=== PATIENT | male | born 1960 | race African-American/Black ===

== ENCOUNTER 2017-09-23 05:25 | Inpatient (IN) | payer MEDICARE ==
[2017-09-23 05:51] LABS: Oxyhemoglobin 90.1 % (94.0-97.0); Sodium 139 mmol/L (135-148)
[2017-09-23 05:52] LABS: Modified Allen's Test POSITIVE
[2017-09-23] MEDS ORDERED: Furosemide 40 MG/4 ML VIAL ONE (05:52)
[2017-09-23] MEDS ORDERED: Nitroglycerin 2% Ointment 1 INCH/1 GM Packet ONE (05:52)
[2017-09-23] MEDS ORDERED: DOBUTamine 500 mg/250 ml 250 ML ONE (05:52)
[2017-09-23] MEDS ORDERED: Nitroglycerin 0.4 MG TAB (25 Tab Bottle) ONE (06:11)
[2017-09-23 06:19] LABS: Lactic Acid - Sepsis 2.6 mmol/L (0.5-2.2)
[2017-09-23 06:23] LABS: ALT (SGPT) 12 U/L (8-55); AST (SGOT) 23 U/L (5-34); Acetaminophen Less than 6.0 mcg/mL (10.0-30.0); Alkaline Phosphatase 90 U/L (40-150); Anion Gap 19 mmol/L (10-20); BUN (Urea Nitrogen) 23 mg/dL (8.4-25.7); Bilirubin, Total 1.9 mg/dL (0.2-1.2); CK (CPK) 222 U/L (30-200); Calc. Creatinine Clearance 0 mL/min (70-130); Calcium 9.6 mg/dL (7.8-10.44); Carbon Dioxide 23 mmol/L (22-29); Chloride 103 mmol/L (98-107); Estimated GFR-MDRD 52; Globulin 3.9 g/dL (2.4-3.5); Lipase 22 U/L (8-78); Protein, Total 7.9 g/dL (6.0-8.3); Salicylate Less than 8.0 mg/dL (15.0-30.0)
[2017-09-23 06:24] LABS: Band 4 % (5-11); Hematocrit 44.7 % (42.0-52.0); Mean Platelet Volume 9.4 fL (7.4-10.4); Neutrophil 61 % (42-75); Red Blood Cell (RBC) Count 4.72 mill/uL (4.70-6.10); White Blood Cell (WBC) Count 7.5 thou/uL (4.8-10.8)
[2017-09-23 07:23] LABS: Bilirubin Negative (Negative); Blood, Urine Negative (Negative); Glucose, Urine (Dipstick) Negative (Negative); Ketone, Urine Negative (Negative); Nitrite Negative (Negative); Protein, Urine (Dipstick) 100 mg/dL (Neg-Trace)
[2017-09-23 07:26] LABS: Bacteria/HPF None Seen HPF (None Seen); Hyaline Casts/LPF 0-3 HYALINE CAST LPF (0-3 Hyaline); RBC/HPF 0-3 HPF (0-3); Squamous Epithelial None Seen HPF (0-3); WBC/HPF None Seen HPF (0-3)
[2017-09-23 07:36] LABS: Amphetamine Not Detected (NotDetected); Methadone Not Detected (NotDetected); Methamphetamine Not Detected (NotDetected)
[2017-09-23] MEDS ORDERED: Bisacodyl 5 MG TAB PO PRN (08:30)
[2017-09-23] MEDS ORDERED: Senokot 8.6 MG TAB PO PRN (08:30)
[2017-09-23] MEDS ORDERED: Acetaminophen 325 MG TAB PO PRN (08:30)
[2017-09-23] MEDS ORDERED: Ondansetron HCl/PF 4 MG/2 ML Vial IVP PRN (08:30)
[2017-09-23] MEDS ORDERED: Calcium Carbonate 500 MG ChewTAB PO PRN (08:30)
--- NOTE | 2017-09-23 08:59 | RAD ---
PORTABLE UPRIGHT FRONTAL CHEST RADIOGRAPH: Date: 09-23-17 Comparison: 10-04-15 History: Chest pain, persistent cough. FINDINGS: There is stable enlargement of the cardiac silhouette. Stable transvenous AICD. No pneumothorax. Ther e is pulmonary vascular congestion. Cardiac silhouette is prominent. There is no lobar consolidation or alveolar edema. IMPRESSION: No significant interval change. POS: [facility]
[2017-09-23 09:23] LABS: Troponin I 0.073 ng/mL (< 0.028)
[2017-09-23 12:28] LABS: Troponin I 0.061 ng/mL (< 0.028)
--- NOTE | 2017-09-23 13:22 | HP ---
CHIEF COMPLAINT: Chest pain with shortness of breath x2 days duration. HISTORY OF PRESENT ILLNESS: This is a 57-year-old male with a past medical history significant for c ongestive heart failure of unknown type, hypertension, diabetes, as well as hyperlipidemia, who prese nts to the hospital due to chest pain and shortness of breath that has been going on for the past cou ple of days. The patient states that his chest pain and shortness of breath that started all of a arriaga dden has been persistent since then. He states that he tried to deal with that at home with no relie f. Because of the chest pain continued to progress as well as shortness of breath, he decided to com e to the hospital for further evaluation and management. The patient states that he has been taking his medications regularly; however, he has been without for the past "couple of days" as he was waiti ng to get them refilled. He states that the chest pain is diffuse all over, worse with coughing. Estrada s productive cough with white colored sputum. Denies any fevers, chills or night sweats. The shortn ess of breath he states that occurs both on exertion and at rest. He also denies any nausea, vomitin g, abdominal pain or diarrhea. He also does complain of some lower extremity swelling. Of note, whi le the patient was in the ER, the patient was placed on BiPAP due to respiratory distress. His satur ations had dropped into the low 90s; however, did not drop over than that per records. The patient w as also started on dobutamine drip initially, but has been soon taken off. PAST MEDICAL HISTORY: See HPI. The patient has ischemic cardiomyopathy with ejection fraction of 10 %-15%. He also has three-vessel coronary artery disease. PAST SURGICAL HISTORY: Includes AICD placement. FAMILY HISTORY: Significant for cardiovascular disease as well as hypertension as well as diabetes. SOCIAL HISTORY: The patient is a cocaine user, also smokes cigarettes. Denies any alcohol. REVIEW OF SYSTEMS: Pertinent positive as per HPI, otherwise 14-point review of systems was reviewed and was negative other than what was mentioned in the HPI. HOME MEDICATIONS: Still trying to be retrieved at this time. PHYSICAL EXAMINATION: VITAL SIGNS: Currently, his blood pressure is 122/86, pulse was 84, respiratory rate was 18. The pa tient is satting 95% on 2 liters nasal cannula, temperature was 98.6. GENERAL: The patient appears to be uncomfortable, in mild distress, otherwise was alert, awake, orie nted x3, and able to hold a conversation, although mildly labored. HEENT: Head is normocephalic, atraumatic. Eyes: Pupils are round and reactive to light. Extraocul ar muscles intact. Conjunctivae was pink. Sclerae was nonicteric. Mouth: Oral mucosa is pink and moist. No erythema was noted. NECK: Soft, supple. No JVD, carotid bruits or lymphadenopathy. CARDIOVASCULAR: Regular rate and rhythm. S1, S2 sounds are heard, no murmurs could be appreciated. RESPIRATORY: Inspiratory crackles bilaterally, bibasilar. ABDOMEN: Positive bowel sounds, soft, nontender, nondistended. EXTREMITIES: Pulses were 2+ both dorsalis and radial pulse. The patient had approximately 1-2+ penny ing edema bilaterally. LABORATORY DATA AND X-RAY FINDINGS: White blood cell count 7.5, hemoglobin 13.7, hematocrit was 44.7 , platelet count was 168. Sodium was 140, potassium 4.6, chloride 103, bicarbonate 23, BUN was 23, c reatinine was 1.64, glucose is 104. Lactic acid 2.6. BNP was 4800. Troponin was 0.06 and was 0.073 . TSH was 2.2. UA was negative. Chest x-ray did not show any acute abnormalities. ASSESSMENT: 1. Shortness of breath with chest pain, likely secondary to congestive heart failure exacerbation se condary to likely noncompliance. 2. Respiratory distress secondary to above. 3. Coronary artery disease, 3-vessel. 4. Ischemic cardiomyopathy with ejection fraction of 10%-15%. 5. Hypertension. 6. Diabetes. 7. Hyperlipidemia. 8. Patient has an acute kidney injury. PLAN: The patient as stated has been on BiPAP has been removed after his respiratory distress has im proved. He is currently no longer on dobutamine drip as well. His sats are holding fine on nasal ca nnula as well as his blood pressure. We will start the patient on Lasix IV b.i.d. We will get a rep eat echocardiogram. We will trend troponins. Consult Cardiology. Resume home medications at the mo dicine reconciliation. We will get strict I's and O's as well as daily weights and monitor according ly.
[2017-09-23] MEDS ORDERED: Furosemide 40 MG/4 ML VIAL SLOW IVP SCH (14:00)
[2017-09-23] MEDS ORDERED: Nitroglycerin 2% Ointment 1 INCH/1 GM Packet TOP SCH (15:00)
[2017-09-23 15:08] VITALS: BMI 26.2
[2017-09-23] MEDS: Enoxaparin Sodium 30 MG/0.3 ML SYRINGE SC SCH (15:52)
[2017-09-23] MEDS: Furosemide 40 MG/4 ML VIAL SLOW IVP SCH (16:06)
--- NOTE | 2017-09-23 16:55 | CON ---
DATE OF CONSULTATION: 09/23/2017 REASON FOR CONSULTATION: Acute on chronic systolic heart failure. PRIMARY BUILDING MAINTENANCE ENGINEER: Sourav Baig M.D. REFERRAL: Bill Carr M.D. HISTORY OF PRESENT ILLNESS: Mr. Irving is an unfortunate 57-year-old gentleman with past history of is chemic cardiomyopathy who recently presented with shortness of breath. He states he has been normal last 2-1/2 days. He did test positive for cocaine. He does complain of chest pain that is sharp and occurs when he coughs and takes a deep breath. He has complained of PND and orthopnea. PAST MEDICAL HISTORY: As above, ICD placement, hypertension, cocaine use. SOCIAL HISTORY: Positive cocaine use. Positive tobacco use. No alcohol use. HOME MEDICATIONS: Hydralazine, glipizide, potassium, carvedilol and Lasix. REVIEW OF SYSTEMS: Ten-point review of systems is reviewed and as above, otherwise negative. PHYSICAL EXAMINATION: GENERAL: He does appear older than the stated age. He is also seen sitting up leaning against the b edside table. VITAL SIGNS: Blood pressure 110/85, pulse 89, temperature 97.8. NEUROLOGIC: The patient is alert and oriented times 3 with no focal neurologic deficits. HEENT: Sclerae without icterus. Mouth has moist mucous membranes with normal pallor. NECK: No JVD. Carotid upstroke brisk. No bruits bilaterally. LUNGS: Crackles noted bilaterally. BACK: No scoliosis or kyphosis. CARDIAC: Regular rate and rhythm with normal S1 and S2. No S3 or S4 noted. No significant rubs, mu rmurs, thrills, or gallops noted throughout the precordium. PMI is not displaced. There is no jose ternal heave. ABDOMEN: Soft, nontender, nondistended. No peritoneal signs present. No hepatosplenomegaly. No ab normal striae. EXTREMITIES: 2+ femoral and 2+ dorsalis pedis pulses. No cyanosis, clubbing, or edema. SKIN: No gross abnormalities. PERTINENT LABORATORY DATA: Peak troponin 0.073, creatinine 1.64. Urine positive for cocaine. IMPRESSION: 1. Acute on chronic systolic heart failure. 2. Illicit drug use. 3. Ischemic cardiomyopathy. 4. Severe coronary artery disease. RECOMMENDATIONS: He states he did receive significant improvement after receiving IV Lasix in the ER . He is now receiving a second IV dose of 40 mg. I will continue Lasix IV. We will prison classification counselor him on salt discretion in addition to fluid discretion. We will also prison classification counselor him on cocaine use, although betty araujo has had cocaine use in the past. Continue Coreg and consider WENDIE inhibitor therapy. Otherwise, I have no recommendations.
[2017-09-23] MEDS ORDERED: Dextrose 50% Abboject 50 ML SYRINGE IVP PRN (17:30)
[2017-09-23] MEDS ORDERED: Dextrose 5% in Water 1,000 ML IV PRN (17:30)
[2017-09-23] MEDS: Cefdinir 300 MG CAP PO SCH (20:50)
[2017-09-23] MEDS ORDERED: FLU VACC QS2017-18 36 mo. & older 0.5 ML SYRINGE IM ONE (21:00)
--- NOTE | 2017-09-23 23:36 | CON ---
DATE OF CONSULTATION: 09/23/2017 HISTORY: This is a 57-year-old -[place]izen [place] gentleman from [place], [place], who had been into [facility] several times. He now presents with shortness of breath, cough, yellow sputum, but no fever or chills. Most days, h gayle can walk two blocks without getting markedly short of breath. Additionally, the patient has a long standing history of tobacco abuse, smoking up to at least half pack a day. He is having chest pain i n the ER. He was placed on noninvasive ventilation for respiratory distress. This was eventually re moved, subsequently placed on nasal O2. He was supposed to go to MICU, now he is on telemetry. PAST MEDICAL HISTORY: Cardiomyopathy, EF has been 10%-15% in the previous ICD, diabetes, hypertensio n, substance abuse, cocaine still got cocaine in his urine, tobacco abuse, renal disease, multiple st ents. MEDICATIONS: His list of medications from home hydralazine 25, glipizide 5, Aldactone 25, Zocor 40, potassium 60, Lasix 40, Coreg 6.25, aspirin 81. In the ER, he was given what appears to be neb treatment, Lasix, cough syrup. PAST SURGICAL HISTORY: Included AICD stents. SOCIAL/FAMILY HISTORY: Unremarkable. REVIEW OF SYSTEMS: Negative. PHYSICAL EXAMINATION: GENERAL: Mild distress. VITAL SIGNS: Sats are better now 96 on 2 liters, respiration 16, blood pressure 126/69, temperature 97. CHEST: Bilateral crackles, rhonchi and the is no wheezing. CARDIAC: Normal S1, S2. No gallops. ABDOMEN: Soft. No masses. LABORATORY AND X-RAY FINDINGS: X-ray shows cardiomegaly, questionable right-sided infiltrate. His l ab shows white count 10,000, H&H 10, 43, 168, 61 segs. Chemistry shows troponin elevated. Creatinin e 1.65. Blood gas: PO2 of 78, PCO2 of 39, pH 7.40 on 2 liters. BNP is 4835. IMPRESSION: 1. Respiratory distress secondary to congestive cardiomyopathy, last echo shows ejection fraction of only 15%-20% 2. Ongoing tobacco use. 3. Chronic obstructive pulmonary disease. 4. Bronchitis. 5. Diabetes. 6. Renal failure. 7. Azotemia. PLAN: Most of his problems appear to be cardiac. Await cardiac input. From the pulmonary standpoin t, start empiric antibiotics, neb treatments, and cough syrup. We will follow.
[2017-09-24] MEDS: Furosemide 40 MG/4 ML VIAL SLOW IVP SCH (05:36)
[2017-09-24] MEDS: Insulin Regular 300 UNITS/3 ML VIAL SC PRN ×3 (05:46→21:45)
[2017-09-24 05:54] LABS: ALT (SGPT) 13 U/L (8-55); AST (SGOT) 22 U/L (5-34); Alkaline Phosphatase 78 U/L (40-150); Anion Gap 12 mmol/L (10-20); BUN (Urea Nitrogen) 24 mg/dL (8.4-25.7); Bilirubin, Total 1.7 mg/dL (0.2-1.2); Calc. Creatinine Clearance 55 mL/min (70-130); Calcium 8.8 mg/dL (7.8-10.44); Carbon Dioxide 27 mmol/L (22-29); Chloride 100 mmol/L (98-107); Estimated GFR-MDRD 52; Globulin 3.4 g/dL (2.4-3.5); Protein, Total 6.8 g/dL (6.0-8.3)
[2017-09-24 06:30] LABS: Band 5 % (5-11); Hematocrit 41.7 % (42.0-52.0); Mean Platelet Volume 10.2 fL (7.4-10.4); Neutrophil 63 % (42-75); Red Blood Cell (RBC) Count 4.46 mill/uL (4.70-6.10); White Blood Cell (WBC) Count 7.1 thou/uL (4.8-10.8)
[2017-09-24] MEDS: Cefdinir 300 MG CAP PO SCH ×2 (08:57→20:52)
[2017-09-24] MEDS: Carvedilol 3.125 MG TAB PO SCH ×2 (08:57→20:52)
[2017-09-24] MEDS: Guaifenesin DM 100-10/5 ML UDCUP PO PRN ×2 (08:57→20:54)
[2017-09-24] MEDS: Enoxaparin Sodium 30 MG/0.3 ML SYRINGE SC SCH (08:58)
--- NOTE | 2017-09-24 09:49 | PDOC.PN ---
- Subjective Encounter Start Date: 09/24/17 Encounter Start Time: 09:47 Patient seen at bedside. Still with dyspnea on exertion, no C/P. Feels better than presentation - Objective Resuscitation Status: Resuscitation Status FULL:Full Resuscitation MAR Reviewed: Yes Vital Signs & Weight: Vital Signs (12 hours) Temp Pulse Resp BP Pulse Ox 09/24/17 08:00 97.6 F 86 18 138/79 91 L 09/24/17 06:38 89 20 96 09/24/17 04:07 98.9 F 90 17 135/74 97 09/24/17 00:37 88 16 96 09/24/17 00:17 98.8 F 91 18 135/85 96 Weight Weight 175 lb 1.6 oz I&O: 09/23/17 09/24/17 09/25/17 06:59 06:59 06:59 Intake Total 1115 240 Output Total 1800 Balance -685 240 Result Diagrams: 09/24/17 05:06 09/24/17 05:06 Additional Labs: Accuchecks 09/24/17 09/23/17 09/23/17 05:39 20:49 17:03 POC Glucose 230 H 171 H 281 H 09/23/17 09:58 POC Glucose 76 Phys Exam - Physical Examination Constitutional: NAD HEENT: moist MMs Neck: no JVD mild rales bilaterally Cardiovascular: RRR Gastrointestinal: soft Musculoskeletal: pulses present, edema present trace edema Neurological: moves all 4 limbs Psychiatric: normal affect, A&O x 3 Dx/Plan (1) Congestive heart failure due to left ventricular systolic dysfunction Code(s): I50.20 - UNSPECIFIED SYSTOLIC (CONGESTIVE) HEART FAILURE Status: Active (2) CAD (coronary artery disease) Code(s): I25.10 - ATHSCL HEART DISEASE OF [place] CORONARY ARTERY W/O ANG PCTRS Status: Chronic (3) CKD (chronic kidney disease) stage 3, GFR 30-59 ml/min Status: Chronic (4) DM type 2 (diabetes mellitus, type 2) Status: Chronic - Plan cont current plan of care, PT/OT, health and social care teacher, DVT proph w/lovenox * Continue with IV diuresis. * I/O and daily weights * BB * Start ASA * No WENDIE/ARB until renal function stabilizes * Check Lipid panel
--- NOTE | 2017-09-24 14:12 | PRG ---
DATE OF SERVICE: 09/24/2017 SUBJECTIVE: Mr. Irving says he is feeling better. OBJECTIVE: VITAL SIGNS: He is afebrile, heart rate 79, respiratory rate is 18, oximetry is 91 on 2 liters, bloo d pressure 139/89. Intake and outputs negative 685. LUNGS: Remarkable for diffuse mild wheezes. HEART: Regular rhythm. ABDOMEN: Soft. LABORATORY DATA: White count 7.1, hemoglobin 12.7, platelets 149. Sodium 135, potassium 4, chloride 100, bicarbonate 27, BUN 24, creatinine 1.64, creatinine was 1.64 yesterday. IMPRESSION: 1. Left ventricular systolic dysfunction. 2. Previous placement of defibrillator. 3. Diabetes. 4. Hypertension. 5. Chronic obstructive pulmonary disease. 6. Tobacco use. 7. Drug screen positive for street drugs. 8. Chronic kidney disease. PLAN: Continue with current respiratory care medications.
[2017-09-24] MEDS: Furosemide 100 MG/10 ML VIAL SLOW IVP SCH (14:29)
[2017-09-25] MEDS: Furosemide 100 MG/10 ML VIAL SLOW IVP SCH (05:19)
[2017-09-25] MEDS: Insulin Regular 300 UNITS/3 ML VIAL SC PRN ×4 (05:20→20:55)
[2017-09-25 05:53] LABS: Anion Gap 12 mmol/L (10-20); BUN (Urea Nitrogen) 23 mg/dL (8.4-25.7); BUN/Creatinine Ratio 15.44; Calc. Creatinine Clearance 60 mL/min (70-130); Carbon Dioxide 29 mmol/L (22-29); Chloride 100 mmol/L (98-107); Cholesterol 145 mg/dl (< 200 Desired); Estimated GFR-MDRD 59; LDL Cholesterol, Calculated 108 mg/dL; Phosphorus 3.5 mg/dL (2.3-4.7)
[2017-09-25] MEDS: Aspirin 81 mg Enteric Coated Tablet PO SCH (08:18)
[2017-09-25] MEDS: Carvedilol 3.125 MG TAB PO SCH ×2 (08:18→19:54)
[2017-09-25] MEDS: Enoxaparin Sodium 30 MG/0.3 ML SYRINGE SC SCH (08:18)
[2017-09-25] MEDS: Cefdinir 300 MG CAP PO SCH ×2 (08:18→19:54)
--- NOTE | 2017-09-25 09:49 | PDOC.PN ---
- Subjective Encounter Start Date: 09/25/17 Encounter Start Time: 09:47 Patient seen at bedside. Feels better, but still with a productive cough. No overnight events. - Objective Resuscitation Status: Resuscitation Status FULL:Full Resuscitation MAR Reviewed: Yes Vital Signs & Weight: Vital Signs (12 hours) Temp Pulse Resp BP Pulse Ox 09/25/17 07:28 80 20 90 L 09/25/17 07:20 98.3 F 80 20 96 09/25/17 07:18 98 F 74 16 138/81 100 09/25/17 03:24 98.4 F 64 26 H 124/78 96 09/24/17 23:54 69 20 97 09/24/17 23:16 98.5 F 67 18 127/69 97 Weight Weight 173 lb 14.4 oz I&O: 09/24/17 09/25/17 09/26/17 06:59 06:59 06:59 Intake Total 1115 1850 300 Output Total 1800 2950 1000 Balance -625 -5466 -337 Result Diagrams: 09/24/17 05:06 09/25/17 04:42 Additional Labs: Accuchecks 09/25/17 09/24/17 09/24/17 05:10 21:36 17:16 POC Glucose 211 H 264 H 117 H 09/24/17 10:39 POC Glucose 180 H Phys Exam - Physical Examination Constitutional: NAD HEENT: moist MMs Neck: no JVD rhonchi bilaterally, mild expiratory wheezing Cardiovascular: RRR Gastrointestinal: soft Musculoskeletal: pulses present Neurological: moves all 4 limbs Psychiatric: A&O x 3 Dx/Plan (1) Congestive heart failure due to left ventricular systolic dysfunction Code(s): I50.20 - UNSPECIFIED SYSTOLIC (CONGESTIVE) HEART FAILURE Status: Active (2) CAD (coronary artery disease) Code(s): I25.10 - ATHSCL HEART DISEASE OF [place] CORONARY ARTERY W/O ANG PCTRS Status: Chronic (3) CKD (chronic kidney disease) stage 3, GFR 30-59 ml/min Status: Chronic (4) DM type 2 (diabetes mellitus, type 2) Status: Chronic - Plan cont current plan of care, respiratory therapy * Decrease Lasix. * Continue with Omnicef * Duonebs * Coreg * If Renal functional stablilizes will start low dose ARB * ASA * OOB/Ambulate
[2017-09-25] MEDS ORDERED: Furosemide 100 MG/10 ML VIAL SLOW IVP SCH (11:11)
[2017-09-25] MEDS ORDERED: Furosemide 40 MG/4 ML VIAL SLOW IVP SCH (11:30)
--- NOTE | 2017-09-25 12:43 | PRG ---
DATE OF SERVICE: 09/25/2017 SUBJECTIVE: He complains of cough and congestion. PHYSICAL EXAMINATION: VITAL SIGNS: Temperature is 98.0, pulse 81, respirations 16, O2 sat 100%, blood pressure 128/81. HEENT: Unremarkable. NECK: No JVD. LUNGS: Coarse breath sounds without wheezing. CARDIAC: S1 and S2 regular. ABDOMEN: Soft. EXTREMITIES: No edema. LABORATORY DATA: Sodium 137, potassium 3.8, chloride 100, CO2 29, BUN 23, creatinine 1.5 and glucose 173. ASSESSMENT: 1. Left ventricular dysfunction. 2. Chronic obstructive pulmonary disease with exacerbation. PLAN: 1. Continue the oral antibiotics. Continue nebulization treatments. Continue diuretics as prescrib ed by Cardiology. 2. From a pulmonary standpoint, he should be very close to discharge.
[2017-09-25] MEDS: Furosemide 40 MG/4 ML VIAL SLOW IVP SCH (14:41)
[2017-09-25] MEDS: Guaifenesin DM 100-10/5 ML UDCUP PO PRN (19:55)
[2017-09-26] MEDS: Furosemide 40 MG/4 ML VIAL SLOW IVP SCH (05:39)
[2017-09-26] MEDS: Cefdinir 300 MG CAP PO SCH ×2 (08:00→21:00)
[2017-09-26] MEDS: Aspirin 81 mg Enteric Coated Tablet PO SCH (08:00)
[2017-09-26] MEDS: Carvedilol 3.125 MG TAB PO SCH ×2 (08:00→21:00)
[2017-09-26] MEDS: Enoxaparin Sodium 30 MG/0.3 ML SYRINGE SC SCH (08:01)
--- NOTE | 2017-09-26 10:04 | PDOC.PN ---
- Subjective Encounter Start Date: 09/26/17 Encounter Start Time: 08:00 Subjective: breathing better -: no chest pain - Objective Resuscitation Status: Resuscitation Status FULL:Full Resuscitation MAR Reviewed: Yes Vital Signs & Weight: Vital Signs (12 hours) Temp Pulse Resp BP Pulse Ox 09/26/17 08:00 97.6 F 69 16 100 09/26/17 07:25 97.6 F 69 16 143/84 H 100 09/26/17 07:20 75 18 97 09/26/17 03:23 97.8 F 78 16 146/81 H 99 09/25/17 23:45 95 16 93 L 09/25/17 23:10 98.5 F 69 22 H 134/79 93 L Weight Weight 173 lb 6.4 oz I&O: 09/25/17 09/26/17 09/27/17 06:59 06:59 06:59 Intake Total 1850 900 Output Total 2950 6330 210 Balance -1100 -2350 -625 Result Diagrams: 09/24/17 05:06 09/25/17 04:42 Additional Labs: Accuchecks 09/26/17 09/25/17 09/25/17 05:29 20:45 17:21 POC Glucose 166 H 191 H 188 H 09/25/17 10:44 POC Glucose 187 H Phys Exam - Physical Examination HEENT: PERRLA, moist MMs Neck: no JVD, supple Respiratory: no wheezing, no rales Cardiovascular: RRR, no significant murmur Gastrointestinal: soft, non-tender, positive bowel sounds Musculoskeletal: no edema, pulses present Neurological: non-focal, moves all 4 limbs Psychiatric: A&O x 3 Dx/Plan (1) COPD exacerbation Code(s): J44.1 - CHRONIC OBSTRUCTIVE PULMONARY DISEASE W (ACUTE) EXACERBATION Status: Acute (2) Cocaine abuse Code(s): F14.10 - COCAINE ABUSE, UNCOMPLICATED Status: Chronic (3) Congestive heart failure due to left ventricular systolic dysfunction Code(s): I50.20 - UNSPECIFIED SYSTOLIC (CONGESTIVE) HEART FAILURE Status: Active Comment: with ef of 15% (4) CAD (coronary artery disease) Code(s): I25.10 - ATHSCL HEART DISEASE OF [place] CORONARY ARTERY W/O ANG PCTRS Status: Chronic Qualifiers: Coronary Disease-Associated Artery/Lesion type: [place] artery [place] vs. transplanted heart: [place] heart Associated angina: without angina Qualified Code(s): I25.10 - Atherosclerotic heart disease of [place] coronary artery without angina pectoris (5) CKD (chronic kidney disease) stage 3, GFR 30-59 ml/min Status: Chronic (6) DM type 2 (diabetes mellitus, type 2) Status: Chronic Qualifiers: Diabetes mellitus complication status: with kidney complications Diabetes mellitus complication detail: with chronic kidney disease Diabetes mellitus continuous churn buttermaker insulin use: with detention use Chronic kidney disease stage: stage 3 (moderate) Qualified Code(s): E11.22 - Type 2 diabetes mellitus with diabetic chronic kidney disease; N18.3 - Chronic kidney disease, stage 3 ( moderate); N18.3 - Chronic kidney disease, stage 3 (moderate); Z79.4 - long term care administrator (current) use of insulin; Z79.4 - long term care administrator (current) use of insulin; Z79.4 - long term care administrator (current) use of insulin; Z79.4 - care home (current) use of insulin - Plan change lasix to oral -: is on omnicef, duonebs -: dc plan in am -: to amb in [facility] as tolerated * . Review of Systems - Medications/Allergies Allergies/Adverse Reactions: Allergies Allergy/AdvReac Type Severity Reaction Status Date / Time No Known Allergies Allergy Verified 10/04/15 21:32 Medications: Current Medications Acetaminophen (Tylenol) 650 mg PO Q4H PRN PRN Reason: Headache/Fever or Pain Albuterol/Ipratropium (Duoneb) 3 ml NEB [id number] [facility] Last Admin: 09/26/17 07:20 Dose: 3 ml Aspirin (Ecotrin) 81 mg PO DAILY [facility] Last Admin: 09/26/17 08:00 Dose: 81 mg Bisacodyl (Dulcolax) 10 mg PO DAILYPRN PRN PRN Reason: Constipation Calcium Carbonate (Tums) 1,000 mg PO Q4H PRN PRN Reason: Heartburn or Indigestion Carvedilol (Coreg) 3.125 mg PO BID [facility] Last Admin: 09/26/17 08:00 Dose: 3.125 mg Cefdinir (Omnicef) 300 mg PO BID [facility] Last Admin: 09/26/17 08:00 Dose: 300 mg Dextrose/Water (Dextrose 50%) 25 gm IVP PRN PRN PRN Reason: HYPOGLYCEMIA PROTOCOL Enoxaparin Sodium (Lovenox) 30 mg SC 0900 TIARA Last Admin: 09/26/17 08:01 Dose: 30 mg Furosemide (Lasix) 40 mg SLOW IVP 0600,1400 TIARA Last Admin: 09/26/17 05:39 Dose: 40 mg Glucagon (Glucagon) 1 mg IM PRN PRN PRN Reason: HYPOGLYCEMIA PROTOCOL Guaifenesin/Dextromethorphan (Robitussin Dm) 15 ml PO Q4H PRN PRN Reason: Cough Last Admin: 09/25/17 19:55 Dose: 15 ml Dextrose/Water (D5w) 1,000 mls @ 0 mls/hr IV INF PRN; As Directed PRN Reason: HYPOGLYCEMIA PROTOCOL Insulin Human Regular (Humulin R) 0 units SC .MODERATE SLIDING SC PRN; Protocol PRN Reason: MODERATE SLIDING SCALE Last Admin: 09/25/17 20:55 Dose: 2 unit Ondansetron HCl (Zofran) 4 mg IVP Q6H PRN PRN Reason: Nausea/Vomiting Senna (Senokot) 2 tab PO HSPRN PRN PRN Reason: Constipation Sodium Chloride (Flush - Normal Saline) 10 ml IVF PRN PRN PRN Reason: Saline Flush Last Admin: 09/26/17 08:04 Dose: 10 ml
[2017-09-26] MEDS: Insulin Regular 300 UNITS/3 ML VIAL SC PRN ×2 (11:04→17:20)
[2017-09-26] MEDS ORDERED: Furosemide 20 MG TAB PO SCH (14:00)
--- NOTE | 2017-09-26 14:11 | PRG ---
DATE OF SERVICE: 09/26/2017 SUBJECTIVE: The patient is doing better. No acute complaints. OBJECTIVE: VITAL SIGNS: Temperature 97.6, pulse 69, respirations 16, O2 sat 100%, blood pressure 143/84. HEENT: Unremarkable. NECK: No JVD. CHEST: Clear except for some late end-expiratory wheezing. CARDIAC: S1 and S2 regular. ABDOMEN: Soft. EXTREMITIES: No edema. ASSESSMENT: 1. Left ventricular dysfunction. 2. Chronic obstructive pulmonary disease exacerbation. PLAN: From a pulmonary standpoint, he looks ready for discharge. Nothing further to add at this filemon rush
[2017-09-26] MEDS: Furosemide 40 MG TAB PO SCH (14:14)
--- NOTE | 2017-09-26 17:53 | PDOC.CTH ---
Cardiology Progress Note - Subjective Doing well. breathing close to normal. - Objective Vital Signs Temp Pulse Resp BP Pulse Ox 09/26/17 15:20 97.6 F 77 16 119/66 92 L 09/26/17 13:15 70 16 97 09/26/17 11:18 97.5 F L 70 16 130/81 96 09/26/17 08:00 97.6 F 69 16 100 09/26/17 07:25 97.6 F 69 16 143/84 H 100 09/26/17 07:20 75 18 97 Weight 173 lb 6.4 oz 09/25/17 09/26/17 09/27/17 06:59 06:59 06:59 Intake Total 1850 900 Output Total 4985 3266 794 Balance -6893 -8265 -279 - Physical Examination General/Neuro: alert & oriented x3, NAD Neck: no JVD present Lungs: unlabored respirations Heart: RRR Abdomen: NT/ND Extremities: other: (no edema.) - Telemetry Telemetry Rhythm: NSR - Labs Result Diagrams: 09/24/17 05:06 09/25/17 04:42 Troponin/CKMB CK-MB (CK-2) 2.7 ng/mL (0-6.6) 09/23/17 05:52 Troponin I 0.061 ng/mL (< 0.028) H 09/23/17 11:50 - Assessment/Plan 1. Acute on chronic systolic heat failure, 2. Substance abuse, on going 3. ICM PLAN: - Switch to PO diuresis. - Discharge home tomorrow if remains stable.
[2017-09-26] MEDS: Guaifenesin DM 100-10/5 ML UDCUP PO PRN (21:00)
[2017-09-27] MEDS: Insulin Regular 300 UNITS/3 ML VIAL SC PRN (05:20)
[2017-09-27 05:37] LABS: Anion Gap 11 mmol/L (10-20); BUN (Urea Nitrogen) 16 mg/dL (8.4-25.7); Calc. Creatinine Clearance 79 mL/min (70-130); Calcium 8.9 mg/dL (7.8-10.44); Carbon Dioxide 29 mmol/L (22-29); Chloride 100 mmol/L (98-107); Estimated GFR-MDRD 81
[2017-09-27 05:40] LABS: Hematocrit 39.1 % (42.0-52.0); Mean Platelet Volume 9.8 fL (7.4-10.4); Neutrophil 66 % (42-75); Red Blood Cell (RBC) Count 4.07 mill/uL (4.70-6.10); White Blood Cell (WBC) Count 8.8 thou/uL (4.8-10.8)
[2017-09-27] MEDS: Cefdinir 300 MG CAP PO SCH (08:22)
[2017-09-27] MEDS: Aspirin 81 mg Enteric Coated Tablet PO SCH (08:22)
[2017-09-27] MEDS: Carvedilol 3.125 MG TAB PO SCH (08:22)
[2017-09-27] MEDS: Furosemide 40 MG TAB PO SCH (08:22)
[2017-09-27] MEDS: Enoxaparin Sodium 30 MG/0.3 ML SYRINGE SC SCH (08:23)
--- NOTE | 2017-09-27 09:33 | PDOC.PN ---
- Subjective Encounter Start Date: 09/27/17 Encounter Start Time: 07:00 Subjective: feels better, no sob - Objective Resuscitation Status: Resuscitation Status FULL:Full Resuscitation MAR Reviewed: Yes Vital Signs & Weight: Vital Signs (12 hours) Temp Pulse Resp BP Pulse Ox 09/27/17 08:00 97.8 F 70 18 09/27/17 07:16 97.8 F 70 18 148/88 H 97 09/27/17 07:15 73 16 98 09/27/17 05:25 95 09/27/17 03:14 97.7 F 74 20 129/79 95 09/26/17 23:52 95 09/26/17 23:09 98.2 F 71 20 150/88 H 95 Weight Weight 173 lb I&O: 09/26/17 09/27/17 09/28/17 06:59 06:59 06:59 Intake Total 900 240 480 Output Total 3250 1575 Balance -2350 -1335 480 Result Diagrams: 09/27/17 04:51 09/27/17 04:51 Additional Labs: Accuchecks 09/26/17 09/26/17 09/26/17 20:16 17:15 10:59 POC Glucose 132 H 185 H 238 H Phys Exam - Physical Examination HEENT: PERRLA, moist MMs Neck: no JVD, supple Respiratory: no wheezing, no rales Cardiovascular: RRR, no significant murmur Gastrointestinal: soft, non-tender, positive bowel sounds Musculoskeletal: no edema, pulses present Neurological: non-focal, moves all 4 limbs Psychiatric: A&O x 3 Dx/Plan (1) COPD exacerbation Code(s): J44.1 - CHRONIC OBSTRUCTIVE PULMONARY DISEASE W (ACUTE) EXACERBATION Status: Acute (2) Cocaine abuse Code(s): F14.10 - COCAINE ABUSE, UNCOMPLICATED Status: Chronic (3) Congestive heart failure due to left ventricular systolic dysfunction Code(s): I50.20 - UNSPECIFIED SYSTOLIC (CONGESTIVE) HEART FAILURE Status: Active Comment: with ef of 15% (4) CAD (coronary artery disease) Code(s): I25.10 - ATHSCL HEART DISEASE OF [place] CORONARY ARTERY W/O ANG PCTRS Status: Chronic Qualifiers: Coronary Disease-Associated Artery/Lesion type: [place] artery [place] vs. 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
[2017-09-27 11:34] VITALS: BP 144/85; TEMP 97.7
--- NOTE | 2017-09-27 18:02 | DIS ---
DATE OF ADMISSION: 09/23/2017 DATE OF DISCHARGE: 09/27/2017 DISCHARGE DISPOSITION: To home. PRIMARY DISCHARGE DIAGNOSES: Acute on chronic congestive heart failure exacerbation with systolic dysfunction with an ejection fraction of 15%, acute on chronic obstructive pulmonary disease exacerbation, chronic cocaine abuse. SECONDARY DISCHARGE DIAGNOSES: Coronary artery disease, chronic kidney disease stage 3, diabetes mellitus type 2 and noncompliance with medication. PROCEDURES DONE DURING HOSPITALIZATION: Echo with 2D Doppler done showed an ejection fraction of 10% to 15%. There was restrictive filling pattern suggestive of diastolic dysfunction, moderate aortic regurgitation, moderate mitral regurgitation, moderate tricuspid regurgitation was seen. Urine drug screen was positive for cocaine metabolite. Discharge BUN and creatinine is 16 and 1.1. BNP on the day of admission was 4835. Troponin I is indeterminate at 0.07. DISCHARGE MEDICATIONS: Albuterol inhaler q.6 hourly p.r.n.; aspirin 81 mg p.o. daily; Coreg 6.25 mg p.o. twice daily; Lasix 40 mg p.o. daily; Glucotrol 50 mg p.o. daily, extended release; hydralazine 25 mg 3 times daily and potassium chloride 20 mEq p.o. daily. ALLERGIES: No known drug allergies. Please note no WENDIE or ARBs were given due to his chronic kidney disease and noncompliance with medication. ALLERGIES: No known drug allergies. DISCHARGE PLAN: Patient to follow up with primary care physician in 1 week. BRIEF COURSE DURING HOSPITALIZATION: The patient initially came to the ER on the with complaints of shortness of breath and chest pain. The patient has known history of systolic dysfunction with an ejection fraction of 10% to 15 %. He was briefly placed on BiPAP in IMCU. He was also started on dobutamine drip initially and was taken off. He has had gentle diuresis done and has responded well. The patient is known to be noncompliant with medications and has chronic cocaine abuse as well. He was counseled regarding the same. Prior to discharge, this morning he is ambulating and eating well. His new medications have been faxed to his pharmacy. He needs follow up with his primary care physician in 1 week. Please note no WENDIE or ARBs given due to his chronic kidney disease. Please see a [id number] documentation on [facility] for the day of discharge. MINH
== END 2017-09-27 12:12 | disposition home or self-care (01) | DRG 291 ==
LOC: ERS 05:25 → 2SE 08:17
PROVIDERS: ADMIT Internal Medicine; ATTEND Internal Medicine
PROC: 5A09357 Assistance with Respiratory Ventilation, Less than 24 Consecutive Hours, Continuous Positive Airway Pressure (ICD-10-PCS; principal; 2017-09-23)
DX: I13.0 Hypertensive heart and chronic kidney disease with heart failure and stage 1 through stage 4 chronic kidney disease, or unspecified chronic kidney disease (principal); I50.23 Acute on chronic systolic (congestive) heart failure; E11.22 Type 2 diabetes mellitus with diabetic chronic kidney disease; N17.9 Acute kidney failure, unspecified; J44.1 Chronic obstructive pulmonary disease with (acute) exacerbation; N18.3 Chronic kidney disease, stage 3 (moderate); R06.03 Acute respiratory distress; F14.10 Cocaine abuse, uncomplicated; I25.10 Atherosclerotic heart disease of native coronary artery without angina pectoris; Z91.14 Patient's other noncompliance with medication regimen; Z23 Encounter for immunization; Z95.810 Presence of automatic (implantable) cardiac defibrillator; E78.5 Hyperlipidemia, unspecified; I25.5 Ischemic cardiomyopathy; F17.210 Nicotine dependence, cigarettes, uncomplicated; Z95.5 Presence of coronary angioplasty implant and graft; Z79.4 Long term (current) use of insulin
CPT/HCPCS: 36415; 36416; 71010; 80048; 80053; 80061; 80069; 80306; 80307; 81003; 81015; 82550; 82553; 82805; 83605; 83690; 83880; 84443; 84484; 85025; 87040; 90471; 90682; 93005; 93306; 93798; 94640; 94660; 96374; G0008; J1250; J1650; J1815; J1940; J7620; Q2036

== ENCOUNTER 2017-11-12 07:50 | Observation (INO) | payer MEDICARE ==
--- NOTE | 2017-11-12 08:35 | RAD ---
RADIOGRAPH CHEST 1 VIEW: DATE: 11/12/17. TIME: 7:38 a.m. HISTORY: A 57-year-old male with dyspnea. FINDINGS: There is severe cardiomegaly. There is no evidence of air space density, pulmonary edema, or pneumoth orax. The lateral costophrenic angles are sharp. IMPRESSION: 1) No acute pulmonary findings. 2) Severe cardiomegaly without congestive heart failure. 3) Automatic implantable cardioverter-defibrillator. 4) No interval change since 09/23/17. alberto [] POS: CATHERINE
[2017-11-12 08:49] LABS: #Eosinphils 0.1 thou/uL (0.0-0.7); #Lymphocytes 1.5 thou/uL (1.20-3.40); #Monocytes 0.5 thou/uL (0.11-0.59); %Basophils 0.6 % (0.0-1.0); %Eosinophils 1.7 % (0.0-10.0); %Lymphocytes 23.7 % (21.0-51.0); %Monocytes 8.3 % (0.0-10.0); %Neutrophils 65.8 % (42.0-75.0); Hemoglobin 11.5 g/dL (14.0-18.0); Mean Corpuscular HGB CONC 31.5 g/dL (32.0-36.0); Mean Corpuscular Volume 95.1 fl (80.0-94.0); Platelet Count 176 thou/uL (130-400); RBC Distribution Width 14.2 % (11.5-14.5); Red Blood Cell (RBC) Count 3.83 mill/uL (4.70-6.10); White Blood Cell (WBC) Count 6.1 thou/uL (4.8-10.8)
[2017-11-12 08:53] LABS: ALT (SGPT) 12 U/L (8-55); AST (SGOT) 16 U/L (5-34); Albumin 3.6 g/dL (3.5-5.0); Alkaline Phosphatase 75 U/L (40-150); Anion Gap 11 mmol/L (10-20); BUN (Urea Nitrogen) 23 mg/dL (8.4-25.7); Bilirubin, Total 1.2 mg/dL (0.2-1.2); CK (CPK) 139 U/L (30-200); Calc. Creatinine Clearance 0 mL/min (70-130); Calcium 9.3 mg/dL (7.8-10.44); Carbon Dioxide 23 mmol/L (22-29); Chloride 109 mmol/L (98-107); Estimated GFR-MDRD 59; Globulin 3.3 g/dL (2.4-3.5); Glucose 183 mg/dL (70-105); Potassium 3.9 mmol/L (3.5-5.1); Protein, Total 6.9 g/dL (6.0-8.3); Sodium 139 mmol/L (136-145)
[2017-11-12 08:54] LABS: INR-International Normal Ratio 1.3; Prothrombin Time 16.7 SEC (12.0-14.7)
[2017-11-12 08:55] LABS: PTT 36.4 SEC (22.9-36.1)
[2017-11-12 08:58] LABS: CKMB 2.4 ng/mL (0-6.6); Troponin I 0.078 ng/mL (< 0.028)
[2017-11-12] MEDS ORDERED: Furosemide 40 MG/4 ML VIAL ONE (09:57)
[2017-11-12] MEDS ORDERED: Nitroglycerin 2% Ointment 1 INCH/1 GM Packet ONE (09:57)
[2017-11-12] MEDS ORDERED: Ondansetron HCl/PF 4 MG/2 ML Vial IVP PRN (10:14)
[2017-11-12] MEDS ORDERED: Acetaminophen 325 MG TAB PO PRN (10:14)
[2017-11-12] MEDS ORDERED: Dextrose 5% in Water 1,000 ML IV PRN (10:24)
[2017-11-12] MEDS ORDERED: HumaLOG 300 UNITS/3 ML VIAL SC PRN (10:24)
[2017-11-12] MEDS ORDERED: Dextrose 50% Abboject 50 ML SYRINGE SLOW IVP PRN (10:24)
--- NOTE | 2017-11-12 10:47 | HP ---
PRIMARY CARE PROVIDER: MASSIMO Cunningham Referred to the [facility] by [facility] for chest pain and short ness of breath. HISTORY OF PRESENT ILLNESS: Patient complains of nagging chest pain for 2-3 days. He thought it was heartburn, but it did not go away, he states he has swelling in his legs. He is short of breath. H e states he has two-pillow orthopnea. Denies cocaine use for 2 months and insisted he is taking his home medicines. PAST MEDICAL HISTORY: Pertinent for ischemic cardiomyopathy with EF of 10%-15% and coronary artery d isease. PAST SURGICAL HISTORY: Includes AICD placement. FAMILY HISTORY: Significant for cardiovascular disease and hypertension. Patient also has diabetes mellitus type 2 with chronic kidney disease 3. CURRENT MEDICATIONS: The patient did not bring his medicines, but states he is on the medicines, he was discharged on aspirin 81 mg a day, Lasix 40 mg a day, potassium one a day, glipizide 5 mg once a day, hydralazine 25 mg 3 times a day, and Coreg 6.25 mg twice a day. ALLERGIES: No known drug allergies. SOCIAL HISTORY: Chronic cocaine user and chronic tobacco user. FULL CODE status. Denies alcohol. REVIEW OF SYSTEMS: GENERAL: No headaches, dizziness or fainting. He has blurred vision all the time . No double vision or flashing lights. EAR, NOSE, AND THROAT: No ear pain or drainage. No nasal b leeding. No trouble swallowing. CARDIAC: See present illness. RESPIRATIONS: Nonproductive cough. No wheezing, dyspnea on exertion. GASTROINTESTINAL: No nausea, vomiting, diarrhea, constipation, no abdominal pain. GENITOURINARY: No hematuria, dysuria or nocturia. MUSCULOSKELETAL: Positive sw elling in his legs. NEUROLOGIC: No strokes, seizures, focal weakness. PSYCHIATRIC: No anxiety or depression. SKIN: No bruises, bleeding or rash. HEME/LYMPH: No tender or swollen lymph nodes in a xilla, inguinal, or cervical area. PHYSICAL EXAMINATION: GENERAL: The patient is alert, cooperative, pleasant gentleman. VITAL SIGNS: Blood pressure 124/82, pulse 109, respirations 20, O2 sat 98% on room air. He gives hi s chest pain on 4-5 rating. HEAD, EYES, EARS, NOSE, AND THROAT: Reveal pupils equal, round, and reactive to light. Extraocular movements are intact. Sclerae are white. Tympanic membranes clear. Nose is clear. Oral mucous mem branes are wet. Dental hygiene is poor with multiple missing teeth. NECK: No jugular venous distention, adenopathy or thyromegaly. CHEST: Clear to auscultation and percussion. HEART: Regular rate and rhythm, tachycardic. First and second heart sounds are clear. No appreciat ed murmurs. ABDOMEN: Soft, bowel sounds are normal. There is no hepatosplenomegaly, no mass, no rebound. EXTREMITIES: Reveal 1+ edema with no cyanosis or clubbing. PULSES: Carotid, radial, femoral, and dorsalis pedis pulses intact. Pedal pulses diminished. SKIN: Warm and dry without bruises or rash. HEME/LYMPH: No tender or swollen lymph nodes in axilla, inguinal or cervical area. NEUROLOGICAL: Cranial nerves II-XII are intact. Moves all extremities. Deep tendon reflexes symmet tha. IMAGING DATA: Chest x-ray; cardiomegaly, AICD, clear lung rahman, reviewed by me. EKG; sinus tachyc ardia, nonspecific ST-T abnormality, reviewed by me. LABORATORY DATA: Comp metabolic profile normal except for creatinine 1.49, blood sugar 183, chloride 109, troponin 0.078, BNP 2437, white count 6.1, hemoglobin 11.5, platelet count 176,000. ADMITTING DIAGNOSES: 1. Atypical chest pain. 2. Cardiomyopathy 10%-15% ejection fraction. 3. Three-vessel coronary artery disease. 4. Defibrillator pacemaker. 5. Diabetes mellitus type 2 with chronic kidney disease stage 3. 6. Anemia of chronic kidney disease. ASSESSMENT AND PLAN: Patient's chest pain is not consistent with coronary artery disease. His eleva cassie troponin is consistent with troponins on previous admissions. Serial troponins will be done. If slept, no further investigation will be done. The patient complains of shortness of breath; however , his O2 sats are 98% on room air. His lung rahman are completely clear as read by myself and by the radiologist. There is no evidence of cardiac decompensation on the present study. Drug screen has been requested. The patient continues to smoke. We will review him during the day. If nothing obje ctive shows up, he will be discharged home later today on his home medicines. He does have tachycard ia. If he is not using cocaine, I suspect his tachycardia is from noncompliance and not taking his C oreg in which his pulse is quite high for someone on his dose of Coreg.
[2017-11-12 10:52] LABS: Amphetamine Not Detected (NotDetected); Cocaine Metabolite Screen Detected (NotDetected); Medtox Reader # READER 1; Methamphetamine Not Detected (NotDetected); Opiate Screen Not Detected (NotDetected); Phencyclidine (PCP) Not Detected (NotDetected); THC/Cannabinoid Screen Not Detected (NotDetected)
[2017-11-12 10:53] LABS: Barbiturates Screen Not Detected (NotDetected); Benzodiazepine Screen Not Detected (NotDetected); Medtox Control Line Valid? VALID (VALID); Methadone Not Detected (NotDetected); Oxycodone Screen Not Detected (NotDetected); Tricyclic Screen Not Detected (NotDetected)
[2017-11-12 12:19] LABS: Cardiac Risk 5.1 (Less than 4.5)
[2017-11-12 12:25] LABS: Troponin I 0.075 ng/mL (< 0.028)
[2017-11-12 12:40] VITALS: BMI 26.9
[2017-11-12 12:41] VITALS: BP 130/84
[2017-11-12 12:44] VITALS: TEMP 98
--- NOTE | 2017-11-12 14:26 | DIS ---
DATE OF ADMISSION: 11/12/2017 DATE OF DISCHARGE: 11/12/2017 DISPOSITION: Discharged home. PRIMARY CARE PROVIDER: Luly KEYS FINAL DIAGNOSES: Cocaine abuse, noncardiac chest pain, cardiomyopathy, diabetes mellitus type 2, cor onary artery disease, chronic kidney disease stage 3. DISCHARGE MEDICATIONS: Same as home medicines. Hydralazine 25 mg p.o. t.i.d., glipizide 5 mg a day, Klor-Con 20 mEq a day, Lasix 40 mg a day, Coreg 6.25 mg twice a day, aspirin 81 mg a day, albuterol HFA 2 puffs q.6 hours p.r.n. ALLERGIES: No drug allergies. PENDING AT THE TIME OF DISCHARGE: Nothing. CODE STATUS: FULL. HOSPITAL COURSE: The patient referred to the [facility] by [facility] for chest pain and shortness of breath. The patient complains of a 3-day nagging chest pain. His ch est was clear on physical exam. His chest x-ray showed no congestive heart failure, did show cardiom egaly. He did have a BNP of 2500. His urine drug test was positive for cocaine despite the fact kwaku t he told me that he has not had cocaine in months. His troponins were flat 0.078 and 0.075, which w ere consistent with numbers he has had in the past. His creatinine was 1.49 with chronic kidney dise ase stage 3, which is also stable. He has some mild tachycardia most likely related to his cocaine a buse, respiratory rate 18-24, O2 saturation 99 on room air, blood pressure 130/80. He is being disch arged home on low salt diet. Continue home medicines. Follow up with PCP in 7 days. No consultatio ns. No procedures. I have discussed the risk of continued cocaine abuse with this gentleman once ag stephanie.
[2017-11-12] MEDS ORDERED: hydrALAZINE 25 MG TAB PO SCH (15:00)
[2017-11-12 15:41] LABS: Cardiac Risk 5.3 (Less than 4.5); Troponin I 0.083 ng/mL (< 0.028)
[2017-11-12] MEDS ORDERED: Carvedilol 6.25 MG TAB PO SCH (21:00)
[2017-11-13] MEDS ORDERED: Furosemide 40 MG TAB PO SCH (09:00)
[2017-11-13] MEDS ORDERED: Aspirin 81 mg Enteric Coated Tablet PO SCH (09:00)
--- NOTE | 2017-12-05 13:02 | EKG ---
Test Reason : Blood Pressure : / mmHG Vent. Rate : 108 BPM Atrial Rate : 108 BPM P-R Int : 160 ms QRS Dur : 104 ms QT Int : 422 ms P-R-T Axes : 000 -01 217 degrees QTc Int : 565 ms Sinus tachycardia Cannot rule out Inferior infarct , age undetermined Abnormal ECG Confirmed by CHELSEA DAWSON, ASHOK ([id number]), editor index ISAI INMAN ([id number]) on 12/05/2017 1:02:08 PM Referred By: Confirmed By:ASHOK TRAN MD
== END 2017-11-12 17:13 | disposition home or self-care (01) ==
LOC: ERS 07:50 → 2SW 11:51
PROVIDERS: ADMIT Internal Medicine; ATTEND Internal Medicine
DX: R07.89 Other chest pain (principal); F14.10 Cocaine abuse, uncomplicated; E11.22 Type 2 diabetes mellitus with diabetic chronic kidney disease; N18.3 Chronic kidney disease, stage 3 (moderate); I25.10 Atherosclerotic heart disease of native coronary artery without angina pectoris; I25.5 Ischemic cardiomyopathy; F17.200 Nicotine dependence, unspecified, uncomplicated; D63.1 Anemia in chronic kidney disease; R79.89 Other specified abnormal findings of blood chemistry; Z79.84 Long term (current) use of oral hypoglycemic drugs; Z79.82 Long term (current) use of aspirin; Z79.899 Other long term (current) drug therapy; Z95.810 Presence of automatic (implantable) cardiac defibrillator
CPT/HCPCS: 36415; 71045; 80053; 80061; 80306; 82553; 83880; 84484; 85025; 85610; 85730; 87804; 93005; 94640; 94760; 96374; 99406; J1940; J7620

== ENCOUNTER 2017-11-21 15:19 | Inpatient (IN) | payer MEDICARE ==
--- NOTE | 2017-11-21 16:20 | RAD ---
PORTABLE CHEST: 11/21/17 HISTORY: Dyspnea. COMPARISON: 11/12/17 Cardiomegaly. Single lead AICD lead is unchanged. Mild vascular engorgement. Mild interstitial promin ence is stable. No effusion or confluent infiltrate. IMPRESSION: Cardiomegaly. Evidence of mild congestive change which appears stable. POS: [facility]
[2017-11-21 16:32] LABS: #Eosinphils 0.2 thou/uL (0.0-0.7); #Lymphocytes 1.5 thou/uL (1.20-3.40); #Monocytes 0.6 thou/uL (0.11-0.59); #Neutrophils 4.2 thou/uL (1.40-6.50); %Basophils 0.7 % (0.0-1.0); %Eosinophils 2.5 % (0.0-10.0); %Lymphocytes 23.3 % (21.0-51.0); %Monocytes 9.2 % (0.0-10.0); %Neutrophils 64.3 % (42.0-75.0); Hemoglobin 12.2 g/dL (14.0-18.0); Mean Corpuscular HGB CONC 30.9 g/dL (32.0-36.0); Mean Corpuscular Hemoglobin 28.7 pg (27.0-31.0); Mean Corpuscular Volume 92.9 fl (80.0-94.0); Mean Platelet Volume 9.5 fL (7.4-10.4); Platelet Count 195 thou/uL (130-400); RBC Distribution Width 14.2 % (11.5-14.5); Red Blood Cell (RBC) Count 4.26 mill/uL (4.70-6.10); White Blood Cell (WBC) Count 6.6 thou/uL (4.8-10.8)
[2017-11-21 16:42] LABS: ALT (SGPT) 13 U/L (8-55); AST (SGOT) 23 U/L (5-34); Albumin 3.9 g/dL (3.5-5.0); Alkaline Phosphatase 87 U/L (40-150); Anion Gap 14 mmol/L (10-20); BUN (Urea Nitrogen) 26 mg/dL (8.4-25.7); Bilirubin, Total 1.3 mg/dL (0.2-1.2); CK (CPK) 122 U/L (30-200); Calc. Creatinine Clearance 0 mL/min (70-130); Calcium 9.2 mg/dL (7.8-10.44); Carbon Dioxide 23 mmol/L (22-29); Chloride 104 mmol/L (98-107); Estimated GFR-MDRD 55; Globulin 3.4 g/dL (2.4-3.5); Glucose 156 mg/dL (70-105); Potassium 4.4 mmol/L (3.5-5.1); Protein, Total 7.3 g/dL (6.0-8.3); Sodium 137 mmol/L (136-145)
[2017-11-21 16:46] LABS: CKMB 2.3 ng/mL (0-6.6); Troponin I 0.033 ng/mL (< 0.028)
[2017-11-21] MEDS ORDERED: ISOVUE-370 76%-LOCM 1 ML ONE (16:56)
--- NOTE | 2017-11-21 17:17 | CT ---
CT PULMONARY ANGIO CHEST: 11/21/17 Multiple axial tomograms obtained through the chest with pulmonary artery enhancement following angio protocol with multiplanar reconstruction and 3D postprocessing. HISTORY: Chest pain. Shortness of breath. FINDINGS: Pulmonary arteries are adequately opacified. There is a subtle filling defect seen in the interlobar pulmonary artery on the left which appears to extend into a branch of left lower lobe artery. I canno t exclude a small pulmonary embolus at this location. No other evidence of pulmonary embolus. Mediastinum shows nonspecific lymph node enlargement. There i s nonspecific hilar lymph node enlargement. There is a subcarinal lymph node which measures 2.5 cm. T here are hilar lymph nodes which measure up to 2 cm. Small right pleural effusion. The lungs show some chronic parenchymal change. Stranding in the lung bases with early bullous change . Some hazy ground glass opacity in both lower lung rahman appears nonspecific. There is cardiomegal y and mild vascular engorgement and mild edema cannot be excluded. IMPRESSION: 1. Evidence of small pulmonary embolus to a left lower lobe pulmonary artery as described above. 2. Cardiomegaly with mild vascular congestion and small right effusion. 3. Nonspecific mediastinal and hilar adenopathy. Findings relayed to Dr. Rivera. POS: [facility]
[2017-11-21] MEDS ORDERED: Enoxaparin Sodium 80 MG/0.8 ML SYRINGE ONE (17:29)
[2017-11-21 19:53] LABS: Troponin I 0.049 ng/mL (< 0.028)
[2017-11-21 20:09] VITALS: BMI 27.3
[2017-11-21] MEDS ORDERED: Ondansetron HCl/PF 4 MG/2 ML Vial IVP PRN ×2 (21:15→22:06)
[2017-11-21] MEDS ORDERED: Ondansetron ODT 4 MG TAB SL PRN (21:15)
[2017-11-21] MEDS: Diltiazem HCl 125 MG, Admixture Fee 1 EACH in Sodium Chloride 0.9% 100 ML IVPB SCH (21:41)
[2017-11-21] MEDS: Acetaminophen 325 MG TAB PO PRN (22:02)
[2017-11-21] MEDS ORDERED: Insulin Regular 300 UNITS/3 ML VIAL SC PRN (22:04)
[2017-11-21] MEDS ORDERED: Dextrose 50% Abboject 50 ML SYRINGE SLOW IVP PRN (22:04)
[2017-11-21] MEDS ORDERED: Dextrose 5% in Water 1,000 ML IV PRN (22:04)
[2017-11-21] MEDS ORDERED: Nitroglycerin 0.4 MG TAB (25 Tab Bottle) PO PRN (22:04)
[2017-11-21] MEDS ORDERED: Senokot 8.6 MG TAB PO PRN (22:06)
[2017-11-21] MEDS ORDERED: Ondansetron ODT 4 MG TAB PO PRN (22:06)
[2017-11-21] MEDS ORDERED: Calcium Carbonate 500 MG ChewTAB PO PRN (22:06)
[2017-11-21] MEDS ORDERED: Labetalol HCl 100 MG/20 ML VIAL SLOW IVP PRN (22:11)
[2017-11-21] MEDS ORDERED: cloNIDine 0.1 MG TAB PO PRN (22:11)
--- NOTE | 2017-11-21 22:32 | HP ---
DATE OF ADMISSION: 11/21/2017 PRIMARY CARE PHYSICIAN: MASSIMO Cunningham PRIMARY CONVEYOR WEIGHER OPERATOR: Sourav Baig MD CHIEF COMPLAINT: Chest discomfort. HISTORY OF PRESENT ILLNESS: Patient is a 57-year-old male with chronic systolic heart failure, eject ion fraction 10-15%, COPD, and chronic cocaine use, presented to the emergency room with chest discom fort. He was seen at this facility approximately 1 week ago and was discharged home with a diagnosis of noncardiac chest pain. He was positive for cocaine at that time. Over the last 1 week or so, the patient has gradual worsening chest discomfort that is substernal, wo rse with movement and exertion. He also noticed worsening bilateral lower extremity swelling along w ith shortness of breath on lying down. He denies any lightheadedness, dizziness; however, felt inter mittent palpitations. No recent immobilization, travel reported. No fever, chills, heartburn, dyspe psia reported. In the emergency room, initial vital signs showed temperature 97.4, respirations 22, pulse rate of 10 5, blood pressure of 138/88 with O2 saturation of 98% on room air. Due to elevated D-dimer, he under went a CT angiogram of the chest that was positive for small pulmonary embolus to the left lower lobe pulmonary artery along with mild pulmonary vascular congestion. There was also some nonspecific med iastinal and hilar adenopathy. His EKG showed atrial flutter with rapid ventricular response requiri ng Cardizem drip. He also received 1 mg/kg dose of Lovenox along with 10 mg labetalol in the emergen cy room. He is currently on Cardizem drip at 5 mg per hour. PAST MEDICAL HISTORY: 1. Chronic systolic heart failure, ejection fraction 10-15%. 2. Coronary artery disease, status post stent. 3. Hypertension. 4. Diabetes mellitus type 2. 5. Chronic kidney disease, stage 3. 6. History of polysubstance abuse. He was positive for cocaine on 11/12/2017. 7. Dyslipidemia. 8. Chronic anemia. PAST SURGICAL HISTORY: 1. AICD placement. 2. Cardiac catheterization. ALLERGIES: No known drug allergies. CURRENT HOME MEDICATIONS: Albuterol inhaler as needed, aspirin 81 mg daily, carvedilol 6.25 mg b.i.d ., Lasix 40 mg daily, glipizide 5 mg daily extended release, hydralazine 25 mg 3 times a day, potassi um chloride 20 mEq daily. SOCIAL HISTORY: Patient has a long history of cocaine and tobacco abuse. Denies significant alcohol . FAMILY HISTORY: Positive for heart disease and hypertension. REVIEW OF SYSTEMS: The following complete review of systems was negative, unless otherwise mentioned in the HPI or below: Constitutional: Weight loss or gain, ability to conduct usual activities. Skin: Rash, itching. Eyes: Double vision, pain. ENT/Mouth: Nose bleeding, neck stiffness, pain, tenderness. Cardiovascular: Palpitations, dyspnea on exertion, orthopnea. Respiratory: Shortness of breath, wheezing, cough, hemoptysis, fever or night sweats. Gastrointestinal: Poor appetite, abdominal pain, heartburn, nausea, vomiting, constipation, or diarr hea. Genitourinary: Urgency, frequency, dysuria, nocturia. Musculoskeletal: Pain, swelling. Neurologic/Psychiatric: Anxiety, depression. Allergy/Immunologic: Skin rash, bleeding tendency. PHYSICAL EXAMINATION: VITAL SIGNS: As discussed above. GENERAL: A 57-year-old male sitting on the side of the bed, in mild respiratory distress. HEENT: Head, atraumatic, normocephalic, sclerae are anicteric. Moist mucous membranes. No oral les ion. NECK: Supple. JVD elevated. No carotid bruit. LUNGS: Showed bibasilar crackles with scattered rhonchi. No wheezing. Lungs were symmetrical. The re was some use of accessory muscles of respiration. HEART: S1, S2 present. Regular rate and rhythm. 2/6 systolic murmur over the mitral area. No heav es or pulsation. ABDOMEN: Soft. Bowel sounds present. EXTREMITIES: 3+ edema in bilateral lower extremity. SKIN: Warm and dry. LYMPH NODES: No palpable lymph nodes in the neck. PERIPHERAL VASCULAR: Radial pulses palpable bilaterally. MUSCULOSKELETAL: No joint swelling or tenderness. NEUROLOGIC: Grossly nonfocal, moves all four extremities. PSYCHIATRY: Alert, awake, oriented x3. LABORATORY FINDINGS: CBC showed WBC 6.6 with hemoglobin 12.2, hematocrit 39.5, platelet 195. Chemis tries showed sodium 137, potassium 4.4 with BUN 26, creatinine 1.57, magnesium was 2.0. Troponins we re in indeterminate range at 0.033. BNP 2535. CT angiogram of the chest by my review as discussed leti leung. EKG by my review as discussed above. IMPRESSION: 1. Acute on chronic systolic/diastolic heart failure exacerbation. 2. Small pulmonary embolus in the left lower lobe pulmonary artery. 3. Atrial flutter with rapid ventricular response, on Cardizem drip. 4. Coronary artery disease, status post stent placement. 5. Chronic kidney disease stage 3. 6. Diabetes mellitus type 2. 7. History of medication noncompliance. 8. Chronic obstructive pulmonary disease. 9. Chronic cocaine use. 10. Ongoing tobacco abuse. 11. Abnormal liver function tests probably secondary to passive hepatic congestion. 12. Elevated troponins, probably secondary to congestive heart failure. 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 13. Chronic anemia. PLAN: The patient will be monitored on the telemetry unit. Cardiology will be consulted. We will c ontinue anticoagulation for atrial flutter as well as pulmonary embolism. He understands the risks a ssociated with anticoagulation. Gentle diuretics will be started. We will monitor electrolytes clos kathy. Insulin sliding scale. We will continue aspirin due to history of coronary artery disease. He art failure education was provided. Plan of care was discussed with the patient in detail. He stated understanding.
[2017-11-21 22:34] LABS: Troponin I 0.054 ng/mL (< 0.028)
[2017-11-21] MEDS ORDERED: Furosemide 20 MG/2 ML VIAL SLOW IVP SCH (23:30)
[2017-11-22] MEDS: Furosemide 20 MG/2 ML VIAL SLOW IVP SCH ×2 (05:45→14:30)
[2017-11-22 06:00] LABS: ALT (SGPT) 14 U/L (8-55); AST (SGOT) 17 U/L (5-34); Albumin 3.8 g/dL (3.5-5.0); Alkaline Phosphatase 90 U/L (40-150); Anion Gap 12 mmol/L (10-20); BUN (Urea Nitrogen) 30 mg/dL (8.4-25.7); Bilirubin, Total 1.2 mg/dL (0.2-1.2); Calc. Creatinine Clearance 59 mL/min (70-130); Calcium 9.1 mg/dL (7.8-10.44); Carbon Dioxide 24 mmol/L (22-29); Chloride 105 mmol/L (98-107); Estimated GFR-MDRD 52; Globulin 3.3 g/dL (2.4-3.5); Glucose 161 mg/dL (70-105); Magnesium 2.2 mg/dL (1.6-2.6); Phosphorus 3.6 mg/dL (2.3-4.7); Potassium 4.2 mmol/L (3.5-5.1); Protein, Total 7.1 g/dL (6.0-8.3); Sodium 137 mmol/L (136-145)
[2017-11-22 06:20] LABS: Eosinophils 1 % (0-10); Lymphocytes 23 % (21-51); MDiff Complete? YES; Mean Corpuscular HGB CONC 30.5 g/dL (32.0-36.0); Mean Corpuscular Hemoglobin 28.3 pg (27.0-31.0); Mean Corpuscular Volume 92.7 fl (80.0-94.0); Mean Platelet Volume 9.2 fL (7.4-10.4); Monocytes 11 % (0-10); Neutrophil 65 % (42-75); Platelet Count 208 thou/uL (130-400); RBC Distribution Width 13.9 % (11.5-14.5); Red Blood Cell (RBC) Count 4.25 mill/uL (4.70-6.10); White Blood Cell (WBC) Count 6.8 thou/uL (4.8-10.8)
[2017-11-22] MEDS: Carvedilol 6.25 MG TAB PO SCH ×2 (08:48→20:10)
[2017-11-22] MEDS: Multivit, Therapeutic 1 TAB PO SCH (08:48)
[2017-11-22] MEDS: Docusate 100 MG CAP PO SCH ×2 (08:48→20:10)
[2017-11-22] MEDS: Famotidine 20 MG TAB PO SCH ×2 (08:48→20:10)
[2017-11-22] MEDS: Enoxaparin Sodium 80 MG/0.8 ML SYRINGE SC SCH ×2 (08:49→20:11)
[2017-11-22] MEDS: Aspirin 81 mg Enteric Coated Tablet PO SCH (08:49)
[2017-11-22] MEDS: Insulin Regular 300 UNITS/3 ML VIAL SC PRN ×2 (08:50→13:00)
--- NOTE | 2017-11-22 09:06 | ULT ---
BILATERAL LOWER EXTREMITY VENOUS ULTRASOUND: COMPARISON: None. HISTORY: Bilateral lower extremity pain and pitting edema. History of CHF. TECHNIQUE: Multiplanar, will scale and color Doppler images were obtained in a bilateral lower extremity venous ultrasound. Spectral analysis of the Doppler waveforms was performed. FINDINGS: The bilateral common femoral veins, profunda femoral veins, superficial femoral veins, and popliteal veins are normal in appearance without visible thrombus. These vessels demonstrate normal compressio n, flow, and augmentation. The posterior tibial veins and greater saphenous veins are also patent. IMPRESSION: No evidence of deep vein thrombosis. POS: [facility]
[2017-11-22] MEDS ORDERED: Sodium Chloride 0.9% 10 ML ONE ×2 (10:29→14:13)
--- NOTE | 2017-11-22 10:30 | PDOC.PN ---
- Subjective Encounter Start Date: 11/22/17 Encounter Start Time: 10:27 Patient seen at bedside. No overnight events, remains on Cardizem drip. Still complaining of mild SOB and bilateral LE swelling, - Objective Resuscitation Status: Resuscitation Status FULL:Full Resuscitation MAR Reviewed: Yes Vital Signs & Weight: Vital Signs (12 hours) Temp Pulse Resp BP BP BP Pulse Ox 11/22/17 08:48 118/79 11/22/17 05:44 93 20 134/78 11/22/17 04:00 97.3 F L 74 20 115/69 100 11/22/17 01:35 75 20 136/72 99 11/21/17 23:31 94 L 11/21/17 23:06 73 24 H 123/64 94 L Weight Weight 186 lb 11.2 oz I&O: 11/21/17 11/22/17 11/23/17 06:59 06:59 06:59 Intake Total 551 Output Total 500 Balance 51 Result Diagrams: 11/22/17 05:31 11/22/17 05:31 Additional Labs: Accuchecks 11/22/17 11/21/17 05:53 20:29 POC Glucose 216 H 184 H Phys Exam - Physical Examination Constitutional: NAD HEENT: moist MMs Neck: no nodes rales bilaterally Cardiovascular: no significant murmur Regular Gastrointestinal: soft Musculoskeletal: edema present 2+ Edema bilaterally Neurological: moves all 4 limbs Psychiatric: A&O x 3 Dx/Plan (1) Atrial flutter Code(s): I48.92 - UNSPECIFIED ATRIAL FLUTTER Status: Acute (2) Pulmonary embolism Code(s): I26.99 - OTHER PULMONARY EMBOLISM WITHOUT ACUTE COR PULMONALE Status : Acute (3) Congestive heart failure due to left ventricular systolic dysfunction Code(s): I50.20 - UNSPECIFIED SYSTOLIC (CONGESTIVE) HEART FAILURE Status: Active Comment: with ef of 15% - Plan cont current plan of care, respiratory therapy, out of bed/ambulate, DVT proph w /lovenox * Continue with Cardizem drip. Will need to wean. Has a history of atrial flutter ablation. Follow up with Cardiology input * Continue diuresis. Give an additional dose of Lasix. Monitor BP with additional dose. If needed may require inotropic medications given poor EF ( cautiously given arrythmia) * Continue Lovenox * Monitor BUN/Cr * Daily Labs
[2017-11-22] MEDS ORDERED: Furosemide 20 MG/2 ML VIAL SLOW IVP SCH (10:45)
[2017-11-22] MEDS: Acetaminophen 325 MG TAB PO PRN ×2 (14:30→23:48)
[2017-11-22] MEDS: Diltiazem HCl 125 MG, Admixture Fee 1 EACH in Sodium Chloride 0.9% 100 ML IVPB SCH (14:37)
--- NOTE | 2017-11-22 18:18 | CON ---
DATE OF CONSULTATION: 11/22/2017 PRIMARY PAINT PREPPER: Dr. Sourav Baig. REASON FOR CONSULTATION: Atrial flutter. HISTORY OF PRESENT ILLNESS: Mr. Irving is a pleasant 57-year-old white gentleman who comes to the hosp [facility] for chest pain and shortness of breath. He was diagnosed with acute pulmonary embolism and a ve ry small part of his lung is involved, just a subsegmental area on the left lower lobe and pulmonary artery. He was admitted as he has a history of a dilated cardiomyopathy and is also a little bit mor e short of breath than normal. Imaging showed increased markings on lung bases suggestive of pulmona ry edema as well. Cardiology has been consulted for all this. PAST MEDICAL HISTORY: 1. Chronic systolic heart failure for about 10% to 15%. 2. Coronary artery disease. 3. Hypertension. 4. Type 2 diabetes. 5. Chronic kidney disease stage 3. 6. Polysubstance abuse, positive cocaine just a week ago. 7. Hyperlipidemia. 8. Chronic anemia. PAST SURGICAL HISTORY: 1. AICD placement. 2. Cardiac catheterization in the past. OUTPATIENT MEDICATIONS: 1. Albuterol p.r.n. 2. Aspirin 81 daily. 3. Carvedilol 6.25 b.i.d. 4. Lasix 40 mg a day. 5. Glipizide 5 mg a day. 6. Hydralazine 25 mg 3 times a day. 7. Potassium chloride 20 mEq a day. ALLERGIES: No known drug allergies. SOCIAL HISTORY: Cocaine and tobacco abuse, no alcohol use. FAMILY HISTORY: Positive for early heart disease, hypertension, noncontributory for this admission. REVIEW OF SYSTEMS: A 12-point review of systems was done and is all negative unless stated in the hi story of present illness. PHYSICAL EXAMINATION: VITAL SIGNS: Temperature 97.4, pulse 70, respiratory rate 18, satting 100% on 1 liter, blood pressur e 104/66. GENERAL: Awake, alert, oriented x3, in no distress. HEENT: Normocephalic, atraumatic. NECK: Supple. LUNGS: Mild crackles at the bilateral bases. CARDIOVASCULAR: S1, S2. There is a grade 2/6 holosystolic murmur at the apex. ABDOMEN: Soft, positive bowel sounds. EXTREMITIES: No edema. SKIN: Warm and dry. LABORATORY WORK: Reviewed. CBC and CMP were reviewed. Creatinine is 1.64. Troponin is in the inde terminate range at 0.03, 0.04, and then 0.05. BNP was 2535, what he always comes in when he is in he art failure, lipase 49. EKGs reviewed. Chest x-ray and CTA was reviewed. ASSESSMENT AND PLAN: 1. Acute on chronic systolic heart failure. 2. Acute pulmonary embolism, small subsegmental area, most likely a small clot. 3. Atrial flutter: This is a new finding. He is in atrial flutter on telemetry. 4. Substance abuse. PLAN: 1. Continue diltiazem drip for rate control. Most likely this is being driven by his acute pulmonar y embolism. We will increase diltiazem drip to 10 mg an hour to try to rate control him some more. 2. Continue full anticoagulation per primary team. 3. Continue gentle diuresis with current Lasix dose. He has already put out some. He is noted that he has been unable to sleep the last week because of this shortness of breath. Thank you for letting us to participate in the care of your patient. Dr. Baig, primary cardiolog ist, will follow up in the morning.
[2017-11-23] MEDS: Acetaminophen 325 MG TAB PO PRN ×2 (04:16→13:14)
[2017-11-23] MEDS ORDERED: Sodium Chloride 0.9% 10 ML ONE (05:22)
[2017-11-23] MEDS: Furosemide 20 MG/2 ML VIAL SLOW IVP SCH ×2 (05:39→13:14)
[2017-11-23 05:51] LABS: ALT (SGPT) 24 U/L (8-55); AST (SGOT) 33 U/L (5-34); Albumin 3.8 g/dL (3.5-5.0); Alkaline Phosphatase 98 U/L (40-150); Anion Gap 20 mmol/L (10-20); BUN (Urea Nitrogen) 39 mg/dL (8.4-25.7); Bilirubin, Total 1.2 mg/dL (0.2-1.2); Calc. Creatinine Clearance 48 mL/min (70-130); Calcium 9.2 mg/dL (7.8-10.44); Carbon Dioxide 15 mmol/L (22-29); Chloride 104 mmol/L (98-107); Estimated GFR-MDRD 41; Globulin 3.4 g/dL (2.4-3.5); Glucose 174 mg/dL (70-105); Magnesium 2.3 mg/dL (1.6-2.6); Phosphorus 3.7 mg/dL (2.3-4.7); Potassium 4.6 mmol/L (3.5-5.1); Protein, Total 7.2 g/dL (6.0-8.3); Sodium 134 mmol/L (136-145)
[2017-11-23 06:28] LABS: Hemoglobin 12.8 g/dL (14.0-18.0); Mean Corpuscular Hemoglobin 28.9 pg (27.0-31.0); Mean Corpuscular Volume 93.1 fl (80.0-94.0); Mean Platelet Volume 9.8 fL (7.4-10.4); Platelet Count 214 thou/uL (130-400); Red Blood Cell (RBC) Count 4.44 mill/uL (4.70-6.10); White Blood Cell (WBC) Count 7.4 thou/uL (4.8-10.8)
[2017-11-23 06:33] LABS: Band 1 % (5-11); Eosinophils 1 % (0-10); Lymphocytes 40 % (21-51); MDiff Complete? YES; Monocytes 6 % (0-10); Neutrophil 52 % (42-75)
[2017-11-23] MEDS: Multivit, Therapeutic 1 TAB PO SCH (09:57)
[2017-11-23] MEDS: Enoxaparin Sodium 80 MG/0.8 ML SYRINGE SC SCH ×2 (09:57→21:34)
[2017-11-23] MEDS: Carvedilol 6.25 MG TAB PO SCH ×2 (09:57→21:33)
[2017-11-23] MEDS: Aspirin 81 mg Enteric Coated Tablet PO SCH (09:57)
[2017-11-23] MEDS: Docusate 100 MG CAP PO SCH ×2 (09:58→21:34)
[2017-11-23] MEDS: Famotidine 20 MG TAB PO SCH ×2 (09:58→21:33)
[2017-11-23] MEDS: Insulin Regular 300 UNITS/3 ML VIAL SC PRN (17:02)
--- NOTE | 2017-11-23 18:42 | PDOC.PN ---
- Subjective Encounter Start Date: 11/23/17 Encounter Start Time: 11:00 Patient seen and examined. No new complaints. No overnight events. CP improving. - Objective Resuscitation Status: Resuscitation Status FULL:Full Resuscitation MAR Reviewed: Yes Vital Signs & Weight: Vital Signs (12 hours) Temp Pulse Resp BP BP Pulse Ox 11/23/17 17:00 100 16 130/87 100 11/23/17 12:30 79 16 113/74 98 11/23/17 10:00 97.4 F L 71 20 96 11/23/17 09:57 115/59 L 11/23/17 09:45 97.4 F L 71 20 115/59 L Weight Weight 188 lb 12.8 oz I&O: 11/22/17 11/23/17 11/24/17 06:59 06:59 06:59 Intake Total 551 1809 Output Total 500 925 Balance 51 884 Result Diagrams: 11/23/17 04:47 11/23/17 04:47 Additional Labs: Accuchecks 11/23/17 11/23/17 11/23/17 16:07 11:06 05:45 POC Glucose 214 H 194 H 194 H 11/22/17 20:59 POC Glucose 168 H EKG Reviewed by me: Yes (Tele Aflutter. ) Phys Exam - Physical Examination Constitutional: NAD Respiratory: no wheezing, no rhonchi Cardiovascular: RRR, no rub Gastrointestinal: soft, non-tender, positive bowel sounds Musculoskeletal: edema present Neurological: moves all 4 limbs Dx/Plan - Plan IMPRESSION: 1. Acute on chronic systolic/diastolic heart failure exacerbation. No ACEI/ARB/ Aldactone due to renal dysfunction 2. Small pulmonary embolus in the left lower lobe pulmonary artery. 3. Atrial flutter with rapid ventricular response 4. Coronary artery disease, status post stent placement. 5. Chronic kidney disease stage 3. 6. Diabetes mellitus type 2. 7. History of medication noncompliance. 8. Chronic obstructive pulmonary disease. 9. Chronic cocaine use. Counselled 10. Ongoing tobacco abuse. 11. Abnormal liver function tests probably secondary to passive hepatic congestion./Elevated troponins, probably secondary to congestive heart failure. Patient has history of chronically elevated troponins./Chronic anemia./NSVT PLAN: * On Anticoag * Cardio following * Cardizem drip dced * Probable Cardioversion in AM per patient report * Cont to monitor * AM labs * Cont current meds as below Review of Systems - Review of Systems Respiratory: negative: Cough, Dry, Shortness of Breath, Hemoptysis, SOB with Excertion, Pleuritic Pain, Sputum, Wheezing Cardiovascular: negative: chest pain, palpitations, orthopnea, paroxysmal nocturnal dyspnea, edema, light headedness - Medications/Allergies Allergies/Adverse Reactions: Allergies Allergy/AdvReac Type Severity Reaction Status Date / Time No Known Allergies Allergy Verified 11/21/17 21:24 Medications: Current Medications Acetaminophen (Tylenol) 650 mg PO Q4H PRN PRN Reason: Headache/Fever or Mild Pain Last Admin: 11/23/17 13:14 Dose: 650 mg Aspirin (Ecotrin) 81 mg PO DAILY [facility] Last Admin: 11/23/17 09:57 Dose: 81 mg Calcium Carbonate (Tums) 1,000 mg PO Q4H PRN PRN Reason: Heartburn or Indigestion Carvedilol (Coreg) 6.25 mg PO BID [facility] Last Admin: 11/23/17 09:57 Dose: 6.25 mg Clonidine (Catapres) 0.1 mg PO Q4H PRN PRN Reason: Systolic BP > 180 Dextrose/Water (Dextrose 50%) 25 gm SLOW IVP PRN PRN PRN Reason: Hypoglycemia Docusate Sodium (Colace) 100 mg PO BID [facility] Last Admin: 11/23/17 09:58 Dose: 100 mg Enoxaparin Sodium (Lovenox) 80 mg SC 0900,2100 [facility] Last Admin: 11/23/17 09:57 Dose: 80 mg Famotidine (Pepcid) 20 mg PO BID [facility] Last Admin: 11/23/17 09:58 Dose: 20 mg Furosemide (Lasix) 20 mg SLOW IVP 0600,1400 [facility] Last Admin: 11/23/17 13:14 Dose: 20 mg Glipizide (Glucotrol Xl) 5 mg PO QAM-WM [facility] Last Admin: 11/23/17 09:57 Dose: 5 mg Glucagon (Glucagon) 1 mg IM PRN PRN PRN Reason: Hypoglycemia Dextrose/Water (D5w) 1,000 mls @ 0 mls/hr IV .Q0M PRN; As Directed PRN Reason: Hypoglycemia Insulin Human Regular (Humulin R) 0 units SC .MILD SLIDING SCALE PRN PRN Reason: Mild Correctional Scale Last Admin: 11/23/17 17:02 Dose: 3 units Insulin Human Regular (Humulin R) 0 units SC .BEDTIME SLIDING SC PRN PRN Reason: Bedtime Correctional Scale Labetalol HCl (Normodyne) 10 mg SLOW IVP Q4H PRN PRN Reason: Systolic BP > 180 Multivitamins (Theragran) 1 tab PO DAILY [facility] Last Admin: 11/23/17 09:57 Dose: 1 tab Nitroglycerin (Nitrostat) 0.4 mg PO Q5MIN PRN PRN Reason: Chest Pain Ondansetron HCl (Zofran Odt) 4 mg PO Q6H PRN PRN Reason: Nausea/Vomiting Ondansetron HCl (Zofran) 4 mg IVP Q6H PRN PRN Reason: Nausea/Vomiting Potassium Chloride (Klor-Con) 20 meq PO DAILY [facility] Last Admin: 11/23/17 09:56 Dose: 20 meq Senna (Senokot) 2 tab PO HSPRN PRN PRN Reason: Constipation
[2017-11-24] MEDS: Furosemide 20 MG/2 ML VIAL SLOW IVP SCH ×2 (05:24→14:18)
[2017-11-24 08:02] LABS: AST (SGOT) 67 U/L (5-34); Bilirubin, Total 1.4 mg/dL (0.2-1.2); Calcium 9.5 mg/dL (7.8-10.44); Chloride 106 mmol/L (98-107); Potassium 5.2 mmol/L (3.5-5.1); Sodium 135 mmol/L (136-145)
[2017-11-24 08:10] LABS: ALT (SGPT) 55 U/L (8-55); Albumin 3.7 g/dL (3.5-5.0); Alkaline Phosphatase 103 U/L (40-150); BUN (Urea Nitrogen) 44 mg/dL (8.4-25.7); Calc. Creatinine Clearance 45 mL/min (70-130); Carbon Dioxide 13 mmol/L (22-29); Estimated GFR-MDRD 39; Globulin 3.7 g/dL (2.4-3.5); Glucose 91 mg/dL (70-105); Protein, Total 7.4 g/dL (6.0-8.3)
[2017-11-24] MEDS ORDERED: Diprivan 20 ML ONE (08:15)
[2017-11-24 08:25] LABS: Anion Gap 21 mmol/L (10-20)
[2017-11-24] MEDS ORDERED: Norepinephrine 4 MG/4 ML VIAL ONE (08:40)
[2017-11-24 08:43] LABS: Hemoglobin 13.2 g/dL (14.0-18.0); Lymphocytes 29 % (21-51); MDiff Complete? YES; Mean Corpuscular HGB CONC 31.3 g/dL (32.0-36.0); Mean Corpuscular Hemoglobin 29.5 pg (27.0-31.0); Mean Corpuscular Volume 94.2 fl (80.0-94.0); Mean Platelet Volume 9.9 fL (7.4-10.4); Monocytes 4 % (0-10); Neutrophil 66 % (42-75); PLT Morphology Comment Appears Adequate; Platelet Count 207 thou/uL (130-400); Polychromasia MODERATE = 3-4 cells (100X) (0-2/hpf); RBC Distribution Width 14.2 % (11.5-14.5); Red Blood Cell (RBC) Count 4.47 mill/uL (4.70-6.10); Target Cells SLIGHT = 2-5 cells (100X) (0-1/hpf); White Blood Cell (WBC) Count 8.2 thou/uL (4.8-10.8)
[2017-11-24] MEDS ORDERED: Amiodarone 200 MG TAB PO SCH ×2 (10:00)
[2017-11-24] MEDS: Carvedilol 6.25 MG TAB PO SCH ×2 (10:34→21:51)
[2017-11-24] MEDS: Aspirin 81 mg Enteric Coated Tablet PO SCH (10:34)
[2017-11-24] MEDS: Famotidine 20 MG TAB PO SCH ×2 (10:35→21:51)
[2017-11-24] MEDS: Docusate 100 MG CAP PO SCH ×2 (10:35→21:51)
[2017-11-24] MEDS: Enoxaparin Sodium 80 MG/0.8 ML SYRINGE SC SCH (10:36)
[2017-11-24] MEDS: Multivit, Therapeutic 1 TAB PO SCH (10:36)
--- NOTE | 2017-11-24 10:49 | OP ---
ELECTRICAL CARDIOVERSION The patient was taken to the PACU. The patient was sedated by anesthesiology. The patient was shock ed with 50 joules of synchronized electricity. The patient converted to normal sinus rhythm. IMPRESSION: Successful electrocardioversion.
[2017-11-24] MEDS ORDERED: Propofol 200 MG/20 ML VIAL ONE (12:55)
[2017-11-24] MEDS: Acetaminophen 325 MG TAB PO PRN (14:18)
--- NOTE | 2017-11-24 16:35 | ECHO ---
INDICATION: Typical atrial flutter. DESCRIPTION OF PROCEDURE: The patient was taken to the PACU. He was sedated by Anesthesiology. A transesophageal probe was allison bhaskar in the distal esophagus and stomach. Echo images were obtained and the transesophageal probe was removed FINDINGS: 1. Severe decrease in left ventricular systolic function. 2. Biatrial enlargement. 3. Left ventricle is markedly dilated. 4. Mild to moderate mitral regurgitation. 5. Moderate tricuspid regurgitation. 6. Pacemaker wires noted in the right ventricle. 7. No thrombus is noted in the left atrium or left atrial appendage. 8. Atherosclerotic debris in the descending aorta. IMPRESSION: No formed thrombus in the left atrium or left atrial appendage.
[2017-11-24] MEDS: Insulin Regular 300 UNITS/3 ML VIAL SC PRN (17:06)
--- NOTE | 2017-11-24 19:04 | PDOC.PN ---
- Subjective Encounter Start Date: 11/24/17 Encounter Start Time: 15:00 Patient seen and examined. s/p DONNA-CV. No new complaints. No overnight events - Objective Resuscitation Status: Resuscitation Status FULL:Full Resuscitation MAR Reviewed: Yes Vital Signs & Weight: Vital Signs (12 hours) Temp Pulse Resp BP BP Pulse Ox 11/24/17 14:15 72 20 121/76 11/24/17 10:34 128/83 11/24/17 08:00 97.8 F 105 H 18 96 11/24/17 07:20 97.8 F 105 H 18 128/83 96 Weight Weight 187 lb I&O: 11/23/17 11/24/17 11/25/17 06:59 06:59 06:59 Intake Total 1809 360 365 Output Total 925 300 Balance 884 60 365 Result Diagrams: 11/24/17 07:27 11/24/17 07:27 Additional Labs: Accuchecks 11/24/17 11/24/17 11/24/17 16:52 11:20 06:22 POC Glucose 305 H 237 H 107 11/23/17 20:17 POC Glucose 155 H EKG Reviewed by me: Yes (Tele SR) Phys Exam - Physical Examination Constitutional: NAD Respiratory: no wheezing, no rhonchi Cardiovascular: RRR, no rub Gastrointestinal: soft, positive bowel sounds Musculoskeletal: edema present Neurological: moves all 4 limbs Dx/Plan - Plan IMPRESSION: 1. Acute on chronic systolic/diastolic heart failure exacerbation. No ACEI/ARB/ Aldactone due to renal dysfunction. On IV Lasix 2. Small pulmonary embolus in the left lower lobe pulmonary artery. on Anticoag 3. Atrial flutter with rapid ventricular response. s/p DONNA-CV 11/24 4. Metabolic acidosis with hyperkalemia. 5. FIDENCIO/Chronic kidney disease stage 3. 6. Diabetes mellitus type 2. 7. Coronary artery disease, status post stent placement. 8. Chronic obstructive pulmonary disease. 9. Chronic cocaine use. Counselled 10. Ongoing tobacco abuse. 11. Abnormal liver function tests probably secondary to passive hepatic congestion./Elevated troponins, probably secondary to congestive heart failure. Patient has history of chronically elevated troponins./Chronic anemia./NSVT PLAN: * Repeat BMP later today * AM labs * On Anticoag/Amiodarone * Cardio following * Cont to monitor * AM labs * Cont meds as below * Consult Nephro in AM Review of Systems - Review of Systems Respiratory: negative: Cough, Dry, Shortness of Breath, Hemoptysis, SOB with Excertion, Pleuritic Pain, Sputum, Wheezing Cardiovascular: negative: chest pain, palpitations, orthopnea, paroxysmal nocturnal dyspnea, edema, light headedness - Medications/Allergies Allergies/Adverse Reactions: Allergies Allergy/AdvReac Type Severity Reaction Status Date / Time No Known Allergies Allergy Verified 11/21/17 21:24 Medications: Current Medications Acetaminophen (Tylenol) 650 mg PO Q4H PRN PRN Reason: Headache/Fever or Mild Pain Last Admin: 11/24/17 14:18 Dose: 650 mg Amiodarone HCl (Cordarone) 400 mg PO BID [facility] Aspirin (Ecotrin) 81 mg PO DAILY [facility] Last Admin: 11/24/17 10:34 Dose: 81 mg Atorvastatin Calcium (Lipitor) 40 mg PO [facility] Calcium Carbonate (Tums) 1,000 mg PO Q4H PRN PRN Reason: Heartburn or Indigestion Carvedilol (Coreg) 6.25 mg PO BID [facility] Last Admin: 11/24/17 10:34 Dose: 6.25 mg Clonidine (Catapres) 0.1 mg PO Q4H PRN PRN Reason: Systolic BP > 180 Dextrose/Water (Dextrose 50%) 25 gm SLOW IVP PRN PRN PRN Reason: Hypoglycemia Docusate Sodium (Colace) 100 mg PO BID [facility] Last Admin: 11/24/17 10:35 Dose: 100 mg Enoxaparin Sodium (Lovenox) 80 mg SC 0900,2100 [facility] Last Admin: 11/24/17 10:36 Dose: 80 mg Famotidine (Pepcid) 20 mg PO BID [facility] Last Admin: 11/24/17 10:35 Dose: 20 mg Furosemide (Lasix) 20 mg SLOW IVP 0600,1400 [facility] Last Admin: 11/24/17 14:18 Dose: 20 mg Glipizide (Glucotrol) 5 mg PO DAILY[facility] Glucagon (Glucagon) 1 mg IM PRN PRN PRN Reason: Hypoglycemia Dextrose/Water (D5w) 1,000 mls @ 0 mls/hr IV .Q0M PRN; As Directed PRN Reason: Hypoglycemia Insulin Human Regular (Humulin R) 0 units SC .MILD SLIDING SCALE PRN PRN Reason: Mild Correctional Scale Last Admin: 11/24/17 17:06 Dose: 5 units Insulin Human Regular (Humulin R) 0 units SC .BEDTIME SLIDING SC PRN PRN Reason: Bedtime Correctional Scale Labetalol HCl (Normodyne) 10 mg SLOW IVP Q4H PRN PRN Reason: Systolic BP > 180 Multivitamins (Theragran) 1 tab PO DAILY [facility] Last Admin: 11/24/17 10:36 Dose: 1 tab Nitroglycerin (Nitrostat) 0.4 mg PO Q5MIN PRN PRN Reason: Chest Pain Ondansetron HCl (Zofran Odt) 4 mg PO Q6H PRN PRN Reason: Nausea/Vomiting Ondansetron HCl (Zofran) 4 mg IVP Q6H PRN PRN Reason: Nausea/Vomiting Senna (Senokot) 2 tab PO HSPRN PRN PRN Reason: Constipation
[2017-11-24 19:43] LABS: Lactic Acid 3.4 mmol/L (0.5-2.2)
[2017-11-24 19:48] LABS: Anion Gap 20 mmol/L (10-20); BUN (Urea Nitrogen) 48 mg/dL (8.4-25.7); Calc. Creatinine Clearance 39 mL/min (70-130); Calcium 9.1 mg/dL (7.8-10.44); Carbon Dioxide 14 mmol/L (22-29); Chloride 104 mmol/L (98-107); Estimated GFR-MDRD 33; Glucose 186 mg/dL (70-105); Potassium 4.7 mmol/L (3.5-5.1); Sodium 133 mmol/L (136-145)
[2017-11-24] MEDS ORDERED: Sodium Bicarbonate Tab 325 MG TAB PO SCH (21:00)
[2017-11-24] MEDS: Amiodarone 200 MG TAB PO SCH (21:50)
[2017-11-24] MEDS: Atorvastatin Calcium 40 MG TAB PO SCH (21:51)
[2017-11-24] MEDS: ALPRAZolam 0.25 MG TAB PO PRN (22:12)
[2017-11-25 05:39] LABS: Lactic Acid 2.9 mmol/L (0.5-2.2)
[2017-11-25 05:43] LABS: Anion Gap 19 mmol/L (10-20); BUN (Urea Nitrogen) 53 mg/dL (8.4-25.7); Calc. Creatinine Clearance 36 mL/min (70-130); Calcium 9.2 mg/dL (7.8-10.44); Carbon Dioxide 16 mmol/L (22-29); Chloride 104 mmol/L (98-107); Estimated GFR-MDRD 30; Glucose 186 mg/dL (70-105); Potassium 5.1 mmol/L (3.5-5.1); Sodium 134 mmol/L (136-145)
[2017-11-25 07:39] LABS: Hemoglobin 12.8 g/dL (14.0-18.0); Mean Corpuscular HGB CONC 31.1 g/dL (32.0-36.0); Mean Corpuscular Hemoglobin 28.8 pg (27.0-31.0); Mean Corpuscular Volume 92.7 fl (80.0-94.0); Mean Platelet Volume 9.9 fL (7.4-10.4); Platelet Count 216 thou/uL (130-400); RBC Distribution Width 14.4 % (11.5-14.5); Red Blood Cell (RBC) Count 4.44 mill/uL (4.70-6.10); White Blood Cell (WBC) Count 8.7 thou/uL (4.8-10.8)
[2017-11-25 07:41] LABS: Band 2 % (5-11); Eosinophils 1 % (0-10); Lymphocytes 27 % (21-51); MDiff Complete? YES; Monocytes 6 % (0-10); Neutrophil 64 % (42-75); RBC Morphology Normal
[2017-11-25] MEDS: glipiZIDE 5 MG TAB PO SCH (08:26)
[2017-11-25] MEDS: Amiodarone 200 MG TAB PO SCH ×3 (08:26→20:40)
[2017-11-25] MEDS: Carvedilol 6.25 MG TAB PO SCH (08:27)
[2017-11-25] MEDS: Docusate 100 MG CAP PO SCH ×2 (08:27→20:41)
[2017-11-25] MEDS: Famotidine 20 MG TAB PO SCH ×2 (08:27→20:41)
[2017-11-25] MEDS: Aspirin 81 mg Enteric Coated Tablet PO SCH (08:27)
[2017-11-25] MEDS: Multivit, Therapeutic 1 TAB PO SCH (08:28)
[2017-11-25] MEDS: Enoxaparin Sodium 80 MG/0.8 ML SYRINGE SC SCH (08:28)
[2017-11-25] MEDS: Insulin Regular 300 UNITS/3 ML VIAL SC PRN ×3 (08:29→16:37)
[2017-11-25] MEDS: DOBUTamine 500 mg/250 ml 250 ML IVPB SCH (09:44)
[2017-11-25] MEDS: Sodium Bicarbonate Tab 325 MG TAB PO SCH ×3 (09:45→20:41)
--- NOTE | 2017-11-25 12:45 | CON ---
DATE OF CONSULTATION: 11/25/2017 CONSULTING PHYSICIAN: Dr. Lay REASON FOR CONSULTATION: Acute kidney injury. REASON FOR ADMISSION: Chest pain. HISTORY OF PRESENT ILLNESS: This is a 57-year-old male with history of CHF, coronary artery disease, hypertension, type 2 diabetes, CKD, came to the hospital with chest pain. The patient has known CHF patient and is having problem and currently treated for cardiorenal syndrome with elevation of creat inine Nephrology was consulted. The patient is still having shortness of breath and no chest pain or palpitation reported. No fever or chills. No nausea or vomiting. PAST MEDICAL HISTORY: Positive for CHF, CKD, coronary artery disease, hypertension, hyperlipidemia, polysubstance abuse. PAST SURGICAL HISTORY: AICD placement, cardiac catheterization. ALLERGIES: No known drug allergies. HOME MEDICATIONS: Albuterol, aspirin, carvedilol, glipizide, Lasix, hydralazine, potassium chloride. 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 FAMILY HISTORY: Positive for heart disease. REVIEW OF SYSTEMS: The following complete review of systems was negative, unless otherwise mentioned in the HPI or below: Constitutional: Weight loss or gain, ability to conduct usual activities. Skin: Rash, itching. Eyes: Double vision, pain. ENT/Mouth: Nose bleeding, neck stiffness, pain, tenderness. Cardiovascular: Palpitations, dyspnea on exertion, orthopnea. Respiratory: Shortness of breath, wheezing, cough, hemoptysis, fever or night sweats. Gastrointestinal: Poor appetite, abdominal pain, heartburn, nausea, vomiting, constipation, or diarrhea. Genitourinary: Urgency, frequency, dysuria, nocturia. Musculoskeletal: Pain, swelling. Neurologic/Psychiatric: Anxiety, depression. Allergy/Immunologic: Skin rash, bleeding tendency. PHYSICAL EXAMINATION: GENERAL: This is a thin-built male in no apparent distress. VITAL SIGNS: Temperature 97.8, pulse 67, respirations 16, blood pressure 128/80. HEENT: Atraumatic, normocephalic. Oral mucosa is moist. NECK: Supple, no masses. CARDIOVASCULAR: S1, S2. Rate and rhythm regular. RESPIRATORY: Clear. MUSCULOSKELETAL: 1+ edema. DERMATOLOGIC: No skin rash. NEUROLOGIC: Alert and awake. PSYCHIATRIC: Normal mood and affect. LABORATORY: Potassium is 5.1, BUN 53, creatinine is 2.7. ASSESSMENT AND PLAN: 1. Acute kidney injury on chronic kidney disease, most likely cardiorenal syndrome. 2. Hyponatremia. 3. Acidosis. 4. Edema. 5. Cardiorenal syndrome. 6. Hypertension. 7. Polysubstance abuse. 8. Anemia, mild. 9. Hypoalbuminemia. Prognosis is guarded. Currently, I agree with dobutamine and Lasix for now and monitor renal functio n and we will follow. Thank you for the consult.
--- NOTE | 2017-11-25 14:12 | PDOC.PN ---
- Subjective Encounter Start Date: 11/25/17 Encounter Start Time: 11:00 Patient seen and examined. Feels gen weak. SOB on exertion +. No overnight events - Objective Resuscitation Status: Resuscitation Status FULL:Full Resuscitation MAR Reviewed: Yes Vital Signs & Weight: Vital Signs (12 hours) Temp Pulse Resp BP BP BP Pulse Ox 11/25/17 12:00 96.1 F L 67 17 118/80 11/25/17 10:04 64 117/77 11/25/17 08:50 97.8 F 64 17 11/25/17 08:47 97.8 F 67 17 120/81 97 11/25/17 08:27 120/81 11/25/17 04:00 97.8 F 68 20 123/78 100 Weight Weight 187 lb I&O: 11/24/17 11/25/17 11/26/17 06:59 06:59 06:59 Intake Total 360 1565 Output Total 300 1350 Balance 60 215 Result Diagrams: 11/25/17 04:25 11/25/17 04:24 Additional Labs: Accuchecks 11/25/17 11/25/17 11/24/17 11:22 05:40 21:12 POC Glucose 217 H 224 H 160 H 11/24/17 16:52 POC Glucose 305 H Laboratory Tests 11/24/17 11/25/17 19:17 04:24 Lactic Acid 3.4 H 2.9 H EKG Reviewed by me: Yes Phys Exam - Physical Examination Constitutional: NAD Respiratory: no wheezing, no rhonchi Cardiovascular: RRR, no rub Gastrointestinal: soft, non-tender, positive bowel sounds Musculoskeletal: edema present Neurological: moves all 4 limbs Dx/Plan - Plan IMPRESSION: 1. Acute on chronic systolic/diastolic heart failure exacerbation. No ACEI/ARB/ Aldactone due to renal dysfunction. On IV Lasix/Dobutamine 2. Small pulmonary embolus in the left lower lobe pulmonary artery. on Anticoag - dose adjusted for renal function 3. Atrial flutter with rapid ventricular response. s/p DONNA-CV 11/24 - now in SR 4. Metabolic acidosis with hyperkalemia/Lactic acidosis - prob due to third spacing 5. FIDENCIO/Chronic kidney disease stage 3. 6. Diabetes mellitus type 2. 7. Coronary artery disease, status post stent placement. 8. Chronic obstructive pulmonary disease. 9. Chronic cocaine use. Counselled 10. Ongoing tobacco abuse. 11. Abnormal liver function tests probably secondary to passive hepatic congestion./Elevated troponins, probably secondary to congestive heart failure. Patient has history of chronically elevated troponins./Chronic anemia./NSVT PLAN: * Nephro consulted * Repeat BMP later today * AM labs * On Anticoag/Amiodarone * Started on Dobutamine per Cardio * Lasix dose increased to 40 mg BID * Cont to monitor * Cont meds as below * sodium bicarb 650 mg TID x3 dose Review of Systems - Review of Systems Respiratory: negative: Cough, Dry, Shortness of Breath, Hemoptysis, SOB with Excertion, Pleuritic Pain, Sputum, Wheezing Cardiovascular: negative: chest pain, palpitations, orthopnea, paroxysmal nocturnal dyspnea, edema, light headedness - Medications/Allergies Allergies/Adverse Reactions: Allergies Allergy/AdvReac Type Severity Reaction Status Date / Time No Known Allergies Allergy Verified 11/21/17 21:24 Medications: Current Medications Acetaminophen (Tylenol) 650 mg PO Q4H PRN PRN Reason: Headache/Fever or Mild Pain Last Admin: 11/24/17 14:18 Dose: 650 mg Alprazolam (Xanax) 0.25 mg PO BIDPRN PRN PRN Reason: Anxiety Last Admin: 11/24/17 22:12 Dose: 0.25 mg Amiodarone HCl (Cordarone) 200 mg PO BID [facility] Last Admin: 11/25/17 09:45 Dose: Not Given Aspirin (Ecotrin) 81 mg PO DAILY [facility] Last Admin: 11/25/17 08:27 Dose: 81 mg Atorvastatin Calcium (Lipitor) 40 mg PO HS [facility] Last Admin: 11/24/17 21:51 Dose: 40 mg Calcium Carbonate (Tums) 1,000 mg PO Q4H PRN PRN Reason: Heartburn or Indigestion Clonidine (Catapres) 0.1 mg PO Q4H PRN PRN Reason: Systolic BP > 180 Dextrose/Water (Dextrose 50%) 25 gm SLOW IVP PRN PRN PRN Reason: Hypoglycemia Docusate Sodium (Colace) 100 mg PO BID [facility] Last Admin: 11/25/17 08:27 Dose: 100 mg Enoxaparin Sodium (Lovenox) 80 mg SC DAILY [facility] Last Admin: 11/25/17 08:28 Dose: 80 mg Famotidine (Pepcid) 20 mg PO BID [facility] Last Admin: 11/25/17 08:27 Dose: 20 mg Furosemide (Lasix) 40 mg SLOW IVP 0600,1400 [facility] Glipizide (Glucotrol) 5 mg PO DAILY-[facility] Last Admin: 11/25/17 08:26 Dose: 5 mg Glucagon (Glucagon) 1 mg IM PRN PRN PRN Reason: Hypoglycemia Dextrose/Water (D5w) 1,000 mls @ 0 mls/hr IV .Q0M PRN; As Directed PRN Reason: Hypoglycemia Dobutamine HCl/Dextrose (Dobutamine 500 Mg/250 Ml) 250 mls @ 12.723 mls/hr IVPB INF ON [facility] OF [facility]; 5 MCG/KG/MIN PRN Reason: Protocol Last Admin: 11/25/17 09:44 Dose: 250 mls Insulin Human Regular (Humulin R) 0 units SC .MILD SLIDING SCALE PRN PRN Reason: Mild Correctional Scale Last Admin: 11/25/17 12:18 Dose: 3 units Insulin Human Regular (Humulin R) 0 units SC .BEDTIME SLIDING SC PRN PRN Reason: Bedtime Correctional Scale Labetalol HCl (Normodyne) 10 mg SLOW IVP Q4H PRN PRN Reason: Systolic BP > 180 Multivitamins (Theragran) 1 tab PO DAILY [facility] Last Admin: 11/25/17 08:28 Dose: 1 tab Nitroglycerin (Nitrostat) 0.4 mg PO Q5MIN PRN PRN Reason: Chest Pain Ondansetron HCl (Zofran Odt) 4 mg PO Q6H PRN PRN Reason: Nausea/Vomiting Ondansetron HCl (Zofran) 4 mg IVP Q6H PRN PRN Reason: Nausea/Vomiting Senna (Senokot) 2 tab PO HSPRN PRN PRN Reason: Constipation Sodium Bicarbonate (Bicarbonate, Sodium) 650 mg PO TID ON [facility] Stop: 11/25/17 21:01 Last Admin: 11/25/17 09:45 Dose: 650 mg
[2017-11-25] MEDS: Furosemide 40 MG/4 ML VIAL SLOW IVP SCH (15:24)
[2017-11-25 16:41] LABS: Lactic Acid 2.6 mmol/L (0.5-2.2)
[2017-11-25 16:44] LABS: Anion Gap 18 mmol/L (10-20); BUN (Urea Nitrogen) 57 mg/dL (8.4-25.7); Calc. Creatinine Clearance 32 mL/min (70-130); Calcium 8.8 mg/dL (7.8-10.44); Carbon Dioxide 18 mmol/L (22-29); Chloride 102 mmol/L (98-107); Estimated GFR-MDRD 26; Glucose 157 mg/dL (70-105); Potassium 4.6 mmol/L (3.5-5.1); Sodium 133 mmol/L (136-145)
[2017-11-25] MEDS: Atorvastatin Calcium 40 MG TAB PO SCH (20:40)
[2017-11-25] MEDS: ALPRAZolam 0.25 MG TAB PO PRN (20:41)
[2017-11-26] MEDS: Furosemide 40 MG/4 ML VIAL SLOW IVP SCH (05:14)
[2017-11-26] MEDS: DOBUTamine 500 mg/250 ml 250 ML IVPB SCH (05:15)
[2017-11-26 05:44] LABS: Lactic Acid 1.7 mmol/L (0.5-2.2)
[2017-11-26 05:46] LABS: Albumin 3.7 g/dL (3.5-5.0); Anion Gap 19 mmol/L (10-20); BUN (Urea Nitrogen) 59 mg/dL (8.4-25.7); BUN/Creatinine Ratio 19.54; Calc. Creatinine Clearance 32 mL/min (70-130); Calcium 9.1 mg/dL (7.8-10.44); Carbon Dioxide 18 mmol/L (22-29); Chloride 101 mmol/L (98-107); Estimated GFR-MDRD 26; Glucose 120 mg/dL (70-105); Magnesium 2.5 mg/dL (1.6-2.6); Phosphorus 4.5 mg/dL (2.3-4.7); Potassium 4.3 mmol/L (3.5-5.1); Sodium 134 mmol/L (136-145)
[2017-11-26] MEDS: Amiodarone 200 MG TAB PO SCH ×2 (07:58→09:00)
[2017-11-26] MEDS: glipiZIDE 5 MG TAB PO SCH (07:58)
[2017-11-26] MEDS: Famotidine 20 MG TAB PO SCH ×2 (07:59→20:43)
[2017-11-26] MEDS: Docusate 100 MG CAP PO SCH ×2 (07:59→20:43)
[2017-11-26] MEDS: Aspirin 81 mg Enteric Coated Tablet PO SCH (07:59)
[2017-11-26] MEDS: Enoxaparin Sodium 80 MG/0.8 ML SYRINGE SC SCH (07:59)
[2017-11-26] MEDS: Multivit, Therapeutic 1 TAB PO SCH (07:59)
[2017-11-26] MEDS: Sodium Bicarbonate Tab 325 MG TAB PO SCH ×3 (08:00→20:43)
[2017-11-26] MEDS ORDERED: Furosemide 40 MG/4 ML VIAL SLOW IVP SCH ×2 (08:44→09:00)
[2017-11-26] MEDS ORDERED: Metolazone 5 MG TAB PO SCH (08:45)
[2017-11-26] MEDS ORDERED: Furosemide 100 MG/10 ML VIAL SLOW IVP SCH (09:00)
[2017-11-26] MEDS: hydrALAZINE 25 MG TAB PO SCH ×3 (09:02→20:43)
[2017-11-26] MEDS ORDERED: HYDROcodone/Acetaminophen 5/325 mg Tablet PO PRN (09:45)
--- NOTE | 2017-11-26 10:56 | PDOC.PN ---
- Subjective Encounter Start Date: 11/26/17 Encounter Start Time: 09:30 Patient seen and examined. Leg pain from swelling. ESQUIVEL +. No overnight events - Objective Resuscitation Status: Resuscitation Status FULL:Full Resuscitation MAR Reviewed: Yes Vital Signs & Weight: Vital Signs (12 hours) Temp Pulse Resp BP BP BP Pulse Ox 11/26/17 09:02 70 138/92 H 11/26/17 07:53 97.2 F L 70 18 132/85 97 11/26/17 04:00 97.9 F 67 20 128/71 95 Weight Weight 192 lb 6.4 oz I&O: 11/25/17 11/26/17 11/27/17 06:59 06:59 06:59 Intake Total 1565 1478 Output Total 1350 810 Balance 215 668 Result Diagrams: 11/25/17 04:25 11/26/17 04:32 Additional Labs: Accuchecks 11/26/17 11/25/17 11/25/17 05:11 21:01 15:47 POC Glucose 124 H 164 H 174 H 11/25/17 11:22 POC Glucose 217 H EKG Reviewed by me: Yes (Tele SR) Phys Exam - Physical Examination Constitutional: NAD Respiratory: no wheezing, no rhonchi Cardiovascular: RRR, no rub Bibasilar rales Gastrointestinal: soft, non-tender, positive bowel sounds Musculoskeletal: edema present Neurological: moves all 4 limbs Psychiatric: A&O x 3 Dx/Plan - Plan IMPRESSION: 1. Acute on chronic systolic/diastolic heart failure exacerbation. No ACEI/ARB/ Aldactone due to renal dysfunction. On IV Lasix/Dobutamine 2. Small pulmonary embolus in the left lower lobe pulmonary artery. on Lovenox - dose adjusted for renal function 3. Atrial flutter with rapid ventricular response. s/p DONNA-CV 11/24 - now in SR 4. Metabolic acidosis with hyperkalemia/Lactic acidosis - prob due to third spacing. Lactic acidosis improved 5. FIDENCIO/Chronic kidney disease stage 3. 6. Diabetes mellitus type 2. on sliding scale 7. Coronary artery disease, status post stent placement. on ASA 8. Chronic obstructive pulmonary disease. 9. Chronic cocaine use. Counselled 10. Ongoing tobacco abuse. 11. Abnormal liver function tests probably secondary to passive hepatic congestion/Elevated troponins due to CHF/Chronic anemia./NSVT PLAN: * Nephro/Cardio following * AM labs * On Anticoag/Amiodarone * Lasix dose increased to 80 mg IV BID * Cont to monitor * Cont meds as below * Consult Palliative care Review of Systems - Review of Systems Respiratory: SOB with Excertion. negative: Cough, Dry, Shortness of Breath, Hemoptysis, Pleuritic Pain, Sputum, Wheezing Cardiovascular: edema. negative: chest pain, palpitations, orthopnea, paroxysmal nocturnal dyspnea, light headedness Gastrointestinal: negative: Nausea, Vomiting, Abdominal Pain, Diarrhea, Constipation, Melena, Hematochezia - Medications/Allergies Allergies/Adverse Reactions: Allergies Allergy/AdvReac Type Severity Reaction Status Date / Time No Known Allergies Allergy Verified 11/21/17 21:24 Medications: Current Medications Acetaminophen (Tylenol) 650 mg PO Q4H PRN PRN Reason: Headache/Fever or Mild Pain Last Admin: 11/24/17 14:18 Dose: 650 mg Hydrocodone Bitart/Acetaminophen ([place] 5/325) 1 tab PO Q4H PRN PRN Reason: Moderate Pain (4-6) Last Admin: 11/26/17 10:30 Dose: 1 tab Alprazolam (Xanax) 0.25 mg PO BIDPRN PRN PRN Reason: Anxiety Last Admin: 11/25/17 20:41 Dose: 0.25 mg Amiodarone HCl (Cordarone) 200 mg PO DAILY [facility] Last Admin: 11/26/17 09:00 Dose: Not Given Ammonium Lactate (Laclotion) 0 gm TOP [facility] Aspirin (Ecotrin) 81 mg PO DAILY [facility] Last Admin: 11/26/17 07:59 Dose: 81 mg Atorvastatin Calcium (Lipitor) 40 mg PO HS [facility] Last Admin: 11/25/17 20:40 Dose: 40 mg Calcium Carbonate (Tums) 1,000 mg PO Q4H PRN PRN Reason: Heartburn or Indigestion Last Admin: 11/25/17 16:30 Dose: 1,000 mg Clonidine (Catapres) 0.1 mg PO Q4H PRN PRN Reason: Systolic BP > 180 Dextrose/Water (Dextrose 50%) 25 gm SLOW IVP PRN PRN PRN Reason: Hypoglycemia Docusate Sodium (Colace) 100 mg PO BID [facility] Last Admin: 11/26/17 07:59 Dose: 100 mg Enoxaparin Sodium (Lovenox) 80 mg SC DAILY [facility] Last Admin: 11/26/17 07:59 Dose: 80 mg Famotidine (Pepcid) 20 mg PO BID [facility] Last Admin: 11/26/17 07:59 Dose: 20 mg Furosemide (Lasix) 80 mg SLOW IVP 0600,1400 [facility] Glipizide (Glucotrol) 5 mg PO DAILY-[facility] Last Admin: 11/26/17 07:58 Dose: 5 mg Glucagon (Glucagon) 1 mg IM PRN PRN PRN Reason: Hypoglycemia Hydralazine HCl (Apresoline) 25 mg PO TID [facility] Last Admin: 11/26/17 09:02 Dose: 25 mg Dextrose/Water (D5w) 1,000 mls @ 0 mls/hr IV .Q0M PRN; As Directed PRN Reason: Hypoglycemia Dobutamine HCl/Dextrose (Dobutamine 500 Mg/250 Ml) 250 mls @ 12.723 mls/hr IVPB INF [facility]; 5 MCG/KG/MIN PRN Reason: Protocol Last Admin: 11/26/17 05:15 Dose: 250 mls Insulin Human Regular (Humulin R) 0 units SC .MILD SLIDING SCALE PRN PRN Reason: Mild Correctional Scale Last Admin: 11/25/17 16:37 Dose: 2 units Insulin Human Regular (Humulin R) 0 units SC .BEDTIME SLIDING SC PRN PRN Reason: Bedtime Correctional Scale Labetalol HCl (Normodyne) 10 mg SLOW IVP Q4H PRN PRN Reason: Systolic BP > 180 Multivitamins (Theragran) 1 tab PO DAILY [facility] Last Admin: 11/26/17 07:59 Dose: 1 tab Nitroglycerin (Nitrostat) 0.4 mg PO Q5MIN PRN PRN Reason: Chest Pain Ondansetron HCl (Zofran Odt) 4 mg PO Q6H PRN PRN Reason: Nausea/Vomiting Ondansetron HCl (Zofran) 4 mg IVP Q6H PRN PRN Reason: Nausea/Vomiting Senna (Senokot) 2 tab PO HSPRN PRN PRN Reason: Constipation Sodium Bicarbonate (Bicarbonate, Sodium) 650 mg PO TID [facility] Stop: 11/26/17 21:01 Last Admin: 11/26/17 08:00 Dose: 650 mg Sodium Chloride (Flush - Normal Saline) 10 ml IVF Q12HR [facility] Last Admin: 11/26/17 09:02 Dose: 10 ml Sodium Chloride (Flush - Normal Saline) 10 ml IVF PRN PRN PRN Reason: Saline Flush
--- NOTE | 2017-11-26 11:57 | PRG ---
Patient Name: ARCELIA ARMANDO Date of service: 11/26/2017 Subjective: Patient was seen and examined at bedside and overnight events noted. Patient denies any shortness of breath or chest pain or palpitation. No history of nausea or vomiting or diarrhea or fever or chills or cramps. Objective: General: This is a thin-built male in no apparent distress. Vital signs: Temperature 97.2, pulse 70, respirations 18, blood pressure 132/85. HEENT: Atraumatic, normocephalic. Oral mucosa is moist. Neck: Supple. Cardiovascular: S1 S2 heard. Rate and rhythm regular. Respiratory: Clear to auscultation. Gastrointestinal: Abdomen is soft. Musculoskeletal: No tenderness. No edema. Dermatologic: No skin rash. Neurologic: Alert and awake and oriented X3. No focal neurologic deficits. Moving all the extremit ies. Psychiatric: Mood and affect normal. LABORATORY DATA: Potassium 4.3, BUN 59, creatinine 3.02. ASSESSMENT AND PLAN: 1. Acute kidney injury on chronic kidney disease stage 3. Renal function seems to be stabilizing. Agree with dobutamine and diuretics for now. 2. Hyponatremia, limit fluid intake. 3. Edema. 4. Cardiorenal syndrome. 5. Hypertension. 6. Polysubstance abuse. 7. Hypoalbuminemia. Follow up with Cardiology. Continue current management. Renal function is stabilizing. We will fol low. Avoid nephrotoxins.
[2017-11-26] MEDS: Furosemide 100 MG/10 ML VIAL SLOW IVP SCH (13:57)
[2017-11-26] MEDS: Atorvastatin Calcium 40 MG TAB PO SCH (20:42)
[2017-11-26] MEDS: ALPRAZolam 0.25 MG TAB PO PRN (20:44)
[2017-11-26] MEDS: Ammonium Lactate 12% Lotion 225 GM BOT TOP SCH (21:40)
[2017-11-27] MEDS: DOBUTamine 500 mg/250 ml 250 ML IVPB SCH ×2 (02:21→20:43)
[2017-11-27] MEDS: Furosemide 100 MG/10 ML VIAL SLOW IVP SCH ×2 (06:06→14:18)
[2017-11-27 06:26] LABS: Albumin 3.5 g/dL (3.5-5.0); Anion Gap 16 mmol/L (10-20); BUN (Urea Nitrogen) 52 mg/dL (8.4-25.7); BUN/Creatinine Ratio 19.26; Calc. Creatinine Clearance 37 mL/min (70-130); Calcium 8.9 mg/dL (7.8-10.44); Carbon Dioxide 22 mmol/L (22-29); Chloride 102 mmol/L (98-107); Estimated GFR-MDRD 30; Glucose 116 mg/dL (70-105); Magnesium 2.4 mg/dL (1.6-2.6); Phosphorus 3.7 mg/dL (2.3-4.7); Sodium 136 mmol/L (136-145)
[2017-11-27 06:31] LABS: Eosinophils 2 % (0-10); Hemoglobin 11.4 g/dL (14.0-18.0); Lymphocytes 21 % (21-51); MDiff Complete? YES; Mean Corpuscular HGB CONC 32.2 g/dL (32.0-36.0); Mean Corpuscular Hemoglobin 29.6 pg (27.0-31.0); Mean Corpuscular Volume 91.9 fl (80.0-94.0); Monocytes 9 % (0-10); Neutrophil 68 % (42-75); PLT Morphology Comment Appears Adequate; Platelet Count 167 thou/uL (130-400); RBC Distribution Width 15.4 % (11.5-14.5); Red Blood Cell (RBC) Count 3.87 mill/uL (4.70-6.10); White Blood Cell (WBC) Count 8.1 thou/uL (4.8-10.8)
[2017-11-27] MEDS: glipiZIDE 5 MG TAB PO SCH (08:47)
[2017-11-27] MEDS: Aspirin 81 mg Enteric Coated Tablet PO SCH (09:23)
[2017-11-27] MEDS: Amiodarone 200 MG TAB PO SCH (09:23)
[2017-11-27] MEDS: Famotidine 20 MG TAB PO SCH ×2 (09:24→20:44)
[2017-11-27] MEDS: Enoxaparin Sodium 80 MG/0.8 ML SYRINGE SC SCH (09:24)
[2017-11-27] MEDS: Docusate 100 MG CAP PO SCH ×2 (09:24→20:44)
[2017-11-27] MEDS: hydrALAZINE 25 MG TAB PO SCH ×3 (09:24→20:44)
[2017-11-27] MEDS: Multivit, Therapeutic 1 TAB PO SCH (09:24)
--- NOTE | 2017-11-27 11:46 | PRG ---
Patient Name: ARCELIA ARMANDO Date of service: 11/27/2017 Subjective: Patient was seen and examined at bedside and overnight events noted. Patient denies any shortness of breath or chest pain or palpitation. No history of nausea or vomiting or diarrhea or fever or chills or cramps. Objective: General: This is a well-built male in no apparent distress. Vital signs: Temperature 97, pulse 70, respiratory rate 20, blood pressure 140/80. HEENT: Atraumatic, normocephalic. Oral mucosa is moist. Neck: Supple. Cardiovascular: S1 S2 heard. Rate and rhythm regular. Respiratory: Clear to auscultation. Gastrointestinal: Abdomen is soft. Musculoskeletal: No tenderness. No edema. Dermatologic: No skin rash. Neurologic: Alert and awake and oriented X3. No focal neurologic deficits. Moving all the extremit ies. Psychiatric: Mood and affect normal. LABORATORY DATA: Potassium is 4.0, BUN 52, creatinine is 2.7. ASSESSMENT AND PLAN: 1. Acute kidney injury secondary to cardiorenal syndrome. 2. Chronic kidney disease.. 3. Hyponatremia. 4. Edema. 5. Cardiorenal syndrome. 6. Hypertension 7. Polysubstance abuse. Overall, renal function is better with inotropes and Lasix. Continue current therapy. Follow with C ardiology. Renal function better. Avoid nephrotoxins. We will follow.
[2017-11-27] MEDS ORDERED: Metolazone 5 MG TAB PO SCH (12:00)
[2017-11-27] MEDS: Isosorbide Dinitrate 20 MG TAB PO SCH ×2 (14:18→20:44)
--- NOTE | 2017-11-27 14:37 | PDOC.PN ---
- Subjective Encounter Start Date: 11/27/17 Encounter Start Time: 14:00 Patient seen and examined. SOB improving. No CP/Palpitations. No overnight events - Objective Resuscitation Status: Resuscitation Status FULL:Full Resuscitation MAR Reviewed: Yes Vital Signs & Weight: Vital Signs (12 hours) Temp Pulse Resp BP BP BP BP 11/27/17 14:18 74 135/65 11/27/17 12:03 96.7 F L 74 17 137/68 11/27/17 09:24 78 140/69 11/27/17 08:25 97.6 F 78 20 140/80 11/27/17 04:00 97.9 F 71 18 132/61 Pulse Ox 11/27/17 14:18 11/27/17 12:03 96 11/27/17 09:24 11/27/17 08:25 99 11/27/17 04:00 94 L Weight Weight 188 lb 11.2 oz I&O: 11/26/17 11/27/17 11/28/17 06:59 06:59 06:59 Intake Total 1478 1492 Output Total 810 2750 Balance 668 -1258 Result Diagrams: 11/27/17 05:18 11/27/17 05:18 Additional Labs: Accuchecks 11/27/17 11/27/17 11/26/17 12:05 05:45 19:52 POC Glucose 98 125 H 154 H 11/26/17 16:04 POC Glucose 182 H EKG Reviewed by me: Yes (Tele SR) Phys Exam - Physical Examination Constitutional: NAD Respiratory: no wheezing, no rhonchi Cardiovascular: RRR, no rub Gastrointestinal: soft, non-tender, positive bowel sounds Musculoskeletal: edema present (improving) Neurological: moves all 4 limbs Dx/Plan - Plan IMPRESSION: 1. Acute on chronic systolic/diastolic heart failure exacerbation. No ACEI/ARB/ Aldactone due to renal dysfunction. On IV Lasix/Dobutamine - diuresing well over the last 24 hr 2. Small pulmonary embolus in the left lower lobe pulmonary artery. on Lovenox - dose adjusted for renal function 3. Atrial flutter with rapid ventricular response. s/p DONNA-CV 11/24 - now in SR 4. Metabolic acidosis with hyperkalemia/Lactic acidosis - prob due to third spacing. Lactic acidosis resolved 5. FIDENCIO/Chronic kidney disease stage 3. - improving - Nephro following 6. Diabetes mellitus type 2. on sliding scale & oral hypoglycemic 7. Coronary artery disease, status post stent placement. on ASA 8. Chronic obstructive pulmonary disease. 9. Chronic cocaine use. Counselled 10. Ongoing tobacco abuse. 11. Abnormal liver function tests probably secondary to passive hepatic congestion/Elevated troponins due to CHF/Chronic anemia/NSVT PLAN: * Nephro/Cardio following * AM labs * On Anticoag/Amiodarone * on IV Lasix with Metolazone per Cardiology * Cont to monitor * Cont meds as below * Palliative care following * [place] hospice [place] Review of Systems - Review of Systems Cardiovascular: negative: chest pain, palpitations, orthopnea, paroxysmal nocturnal dyspnea, edema, light headedness Gastrointestinal: negative: Nausea, Vomiting, Abdominal Pain, Diarrhea, Constipation, Melena, Hematochezia - Medications/Allergies Allergies/Adverse Reactions: Allergies Allergy/AdvReac Type Severity Reaction Status Date / Time No Known Allergies Allergy Verified 11/21/17 21:24 Medications: Current Medications Acetaminophen (Tylenol) 650 mg PO Q4H PRN PRN Reason: Headache/Fever or Mild Pain Last Admin: 11/24/17 14:18 Dose: 650 mg Hydrocodone Bitart/Acetaminophen ([place] 5/325) 1 tab PO Q4H PRN PRN Reason: Moderate Pain (4-6) Last Admin: 11/26/17 10:30 Dose: 1 tab Alprazolam (Xanax) 0.25 mg PO BIDPRN PRN PRN Reason: Anxiety Last Admin: 11/26/17 20:44 Dose: 0.25 mg Amiodarone HCl (Cordarone) 200 mg PO DAILY [facility] Last Admin: 11/27/17 09:23 Dose: 200 mg Ammonium Lactate (Laclotion) 0 gm TOP HS [facility] Last Admin: 11/26/17 21:40 Dose: 225 gm Aspirin (Ecotrin) 81 mg PO DAILY [facility] Last Admin: 11/27/17 09:23 Dose: 81 mg Atorvastatin Calcium (Lipitor) 40 mg PO HS [facility] Last Admin: 11/26/17 20:42 Dose: 40 mg Calcium Carbonate (Tums) 1,000 mg PO Q4H PRN PRN Reason: Heartburn or Indigestion Last Admin: 11/25/17 16:30 Dose: 1,000 mg Clonidine (Catapres) 0.1 mg PO Q4H PRN PRN Reason: Systolic BP > 180 Dextrose/Water (Dextrose 50%) 25 gm SLOW IVP PRN PRN PRN Reason: Hypoglycemia Docusate Sodium (Colace) 100 mg PO BID [facility] Last Admin: 11/27/17 09:24 Dose: 100 mg Enoxaparin Sodium (Lovenox) 80 mg SC DAILY [facility] Last Admin: 11/27/17 09:24 Dose: 80 mg Famotidine (Pepcid) 20 mg PO BID [facility] Last Admin: 11/27/17 09:24 Dose: 20 mg Furosemide (Lasix) 80 mg SLOW IVP 0600,1400 [facility] Last Admin: 11/27/17 14:18 Dose: 80 mg Glipizide (Glucotrol) 5 mg PO DAILY[facility] Last Admin: 11/27/17 08:47 Dose: 5 mg Glucagon (Glucagon) 1 mg IM PRN PRN PRN Reason: Hypoglycemia Hydralazine HCl (Apresoline) 25 mg PO TID [facility] Last Admin: 11/27/17 14:18 Dose: 25 mg Dextrose/Water (D5w) 1,000 mls @ 0 mls/hr IV .Q0M PRN; As Directed PRN Reason: Hypoglycemia Dobutamine HCl/Dextrose (Dobutamine 500 Mg/250 Ml) 250 mls @ 12.723 mls/hr IVPB INF [facility]; 5 MCG/KG/MIN PRN Reason: Protocol Last Admin: 11/27/17 02:21 Dose: 250 mls Insulin Human Regular (Humulin R) 0 units SC .MILD SLIDING SCALE PRN PRN Reason: Mild Correctional Scale Last Admin: 11/25/17 16:37 Dose: 2 units Insulin Human Regular (Humulin R) 0 units SC .BEDTIME SLIDING SC PRN PRN Reason: Bedtime Correctional Scale Isosorbide Dinitrate (Isordil) 20 mg PO TID [facility] Last Admin: 11/27/17 14:18 Dose: 20 mg Labetalol HCl (Normodyne) 10 mg SLOW IVP Q4H PRN PRN Reason: Systolic BP > 180 Metolazone (Zaroxolyn) 5 mg PO 0830 [facility] Multivitamins (Theragran) 1 tab PO DAILY [facility] Last Admin: 11/27/17 09:24 Dose: 1 tab Nitroglycerin (Nitrostat) 0.4 mg PO Q5MIN PRN PRN Reason: Chest Pain Ondansetron HCl (Zofran Odt) 4 mg PO Q6H PRN PRN Reason: Nausea/Vomiting Ondansetron HCl (Zofran) 4 mg IVP Q6H PRN PRN Reason: Nausea/Vomiting Senna (Senokot) 2 tab PO HSPRN PRN PRN Reason: Constipation Sodium Chloride (Flush - Normal Saline) 10 ml IVF Q12HR [facility] Last Admin: 11/27/17 09:24 Dose: 10 ml Sodium Chloride (Flush - Normal Saline) 10 ml IVF PRN PRN PRN Reason: Saline Flush
[2017-11-27] MEDS: Atorvastatin Calcium 40 MG TAB PO SCH (20:43)
[2017-11-27] MEDS: Ammonium Lactate 12% Lotion 225 GM BOT TOP SCH (20:45)
[2017-11-28] MEDS: Furosemide 100 MG/10 ML VIAL SLOW IVP SCH ×2 (05:28→15:33)
[2017-11-28 05:48] LABS: Albumin 3.3 g/dL (3.5-5.0); Anion Gap 12 mmol/L (10-20); BUN (Urea Nitrogen) 43 mg/dL (8.4-25.7); BUN/Creatinine Ratio 21.29; Calc. Creatinine Clearance 45 mL/min (70-130); Calcium 8.7 mg/dL (7.8-10.44); Carbon Dioxide 29 mmol/L (22-29); Chloride 99 mmol/L (98-107); Estimated GFR-MDRD 41; Glucose 146 mg/dL (70-105); Magnesium 2.2 mg/dL (1.6-2.6); Phosphorus 3.5 mg/dL (2.3-4.7); Potassium 3.6 mmol/L (3.5-5.1); Sodium 136 mmol/L (136-145)
[2017-11-28] MEDS: glipiZIDE 5 MG TAB PO SCH (07:43)
[2017-11-28] MEDS: Metolazone 5 MG TAB PO SCH (07:43)
[2017-11-28] MEDS: Famotidine 20 MG TAB PO SCH ×2 (07:44→20:11)
[2017-11-28] MEDS: Isosorbide Dinitrate 20 MG TAB PO SCH ×3 (07:44→20:11)
[2017-11-28] MEDS: Multivit, Therapeutic 1 TAB PO SCH (07:44)
[2017-11-28] MEDS: hydrALAZINE 25 MG TAB PO SCH ×3 (07:45→20:11)
[2017-11-28] MEDS: Aspirin 81 mg Enteric Coated Tablet PO SCH (07:45)
[2017-11-28] MEDS: Enoxaparin Sodium 80 MG/0.8 ML SYRINGE SC SCH (07:45)
[2017-11-28] MEDS: Amiodarone 200 MG TAB PO SCH (07:45)
[2017-11-28] MEDS: Docusate 100 MG CAP PO SCH ×2 (07:45→20:11)
--- NOTE | 2017-11-28 13:55 | PDOC.CTH ---
<Valeria Escobar - Last Filed: 11/28/17 13:56> Cardiology Progress Note - Subjective The pt seen and examined. No overnight events. No cardiac complaints. He still complains of bleeding from upper lip. He reported that his BLE edema has been improving with current mediations. - Objective Vital Signs Temp Pulse Resp BP BP BP Pulse Ox 11/28/17 12:41 97.9 F 68 17 125/60 95 11/28/17 07:48 97.6 F 73 17 149/73 H 97 11/28/17 07:45 74 149/73 H 11/28/17 04:00 97.8 F 74 20 126/60 94 L Weight 175 lb 9.6 oz 11/27/17 11/28/17 11/29/17 06:59 06:59 06:59 Intake Total 1492 634 Output Total 2750 3075 Balance -7135 -1280 - Physical Examination General/Neuro: alert & oriented x3 Neck: no JVD present Lungs: other: (very diminished at bases) Heart: RRR Abdomen: soft Extremities: other: (2-3 pitting BLL) - Telemetry Telemetry Rhythm: SR - Labs Result Diagrams: 11/27/17 05:18 11/28/17 04:46 Troponin/CKMB CK-MB (CK-2) 2.3 ng/mL (0-6.6) 11/21/17 16:12 Troponin I 0.054 ng/mL (< 0.028) H 11/21/17 22:04 - Assessment/Plan 1. Acute on chronic systolic/diastolic HF - DONNA on 11/24/17 showed Severely decreased LVEF, Bilat. atrial enlargements, LVH, mild-mod MR, mod TR, and no Thrombus in LA or appendage. On BBlocker, Lasix, Metolazone, and Dobutamine, but no ACEI/ARB/Aldactone due to renal dysfunction. 2. AFlutter with RVR with s/p DONNA and Cardioversion on 11/24/17 - maintains in SR with Amiodarone and Labetrol; cont. monitor on tele 3. Small PE in LLL - on Lovenox 80mg SUBQ; dose adjusted for renal function by PCP 4. FIDENCIO on CKD stage 3. - improving; managed by dcs engineer 5. CAD with Hx of stent placement - Stable with bblocker and ASA; cont. monitor on tele 6. DM type 2 - on sliding scale & oral hypoglycemic 8. COPD - stable with 2LNC 9. Chronic cocaine use and tobacco abuse - Cessation education given to the pt 10. Abnormal LFT probably secondary to passive hepatic congestion/Elevated troponins due to CHF/Chronic anemia/NSVT MAR reviewed Review of Systems - Review of Systems Constitutional: reports: no symptoms reported EENTM: reports: see HPI Respiratory: reports: no symptoms reported Cardiac (ROS): reports: no symptoms reported ABD/GI: reports: no symptoms reported : reports: no symptoms reported Musculoskeletal: reports: no symptoms reported Skin: reports: no symptoms reported Neurological: reports: no symptoms reported <Patrick Herman - Last Filed: 11/29/17 01:31> Cardiology Progress Note - Objective Vital Signs Temp Pulse Resp BP BP BP Pulse Ox 11/28/17 20:11 71 138/63 11/28/17 20:00 98.1 F 71 18 117/63 96 11/28/17 16:45 98.1 F 75 18 116/55 L 96 11/28/17 15:33 68 128/62 Weight 175 lb 9.6 oz 11/27/17 11/28/17 11/29/17 06:59 06:59 06:59 Intake Total 8245 808 7744 Output Total 4310 8655 2817 Balance -8439 -9594 -7271 - Labs Result Diagrams: 11/27/17 05:18 11/28/17 04:46 Troponin/CKMB CK-MB (CK-2) 2.3 ng/mL (0-6.6) 11/21/17 16:12 Troponin I 0.054 ng/mL (< 0.028) H 11/21/17 22:04 - Assessment/Plan The pt. was seen and eval. by me. I agree with the A/P by the EDGE M[employer]DER.
[2017-11-28] MEDS ORDERED: Ascorbic Acid 500 mg Chewable Tablet PO SCH (15:15)
--- NOTE | 2017-11-28 17:29 | PDOC.PN ---
- Subjective Encounter Start Date: 11/28/17 Encounter Start Time: 14:00 Patient seen and examined. Intermittent Gum bleeding +. No overnight events - Objective Resuscitation Status: Resuscitation Status FULL:Full Resuscitation MAR Reviewed: Yes Vital Signs & Weight: Vital Signs (12 hours) Temp Pulse Resp BP BP BP Pulse Ox 11/28/17 15:33 68 128/62 11/28/17 12:41 97.9 F 68 17 125/60 95 11/28/17 07:48 97.6 F 73 17 149/73 H 97 11/28/17 07:45 74 149/73 H Weight Weight 175 lb 9.6 oz I&O: 11/27/17 11/28/17 11/29/17 06:59 06:59 06:59 Intake Total 1492 634 Output Total 0050 7705 Balance -2043 -5143 Result Diagrams: 11/27/17 05:18 11/28/17 04:46 Additional Labs: Accuchecks 11/28/17 11/28/17 11/27/17 11:34 05:49 21:39 POC Glucose 99 155 H 150 H 11/27/17 16:46 POC Glucose 126 H EKG Reviewed by me: Yes (Tele SR) Phys Exam - Physical Examination Constitutional: NAD Respiratory: no wheezing, no rhonchi Scat rales at bases Cardiovascular: RRR, no rub Gastrointestinal: soft, non-tender, positive bowel sounds Musculoskeletal: edema present Neurological: moves all 4 limbs Dx/Plan - Plan IMPRESSION: 1. Acute on chronic systolic/diastolic heart failure exacerbation. No ACEI/ARB/ Aldactone due to renal dysfunction. On IV Lasix/Dobutamine/Hydralazine/Nitrate - diuresing well 2. Small pulmonary embolus in the left lower lobe pulmonary artery. on Lovenox - dose adjusted for renal function 3. Atrial flutter with rapid ventricular response. s/p DONNA-CV 11/24 - now in SR 4. Gum bleeding prob due to anticoag with ?gingivitis 5. FIDENCIO/Chronic kidney disease stage 3. - improving 6. Diabetes mellitus type 2. on sliding scale & oral hypoglycemic 7. Coronary artery disease, status post stent placement. on ASA 8. Chronic obstructive pulmonary disease. 9. Chronic cocaine use. Counselled 10. Ongoing tobacco abuse. Counselled 11. Metabolic acidosis with hyperkalemia/Lactic acidosis/Abnormal liver function tests probably secondary to passive hepatic congestion/Elevated troponins due to CHF/Chronic anemia/NSVT PLAN: * on IV Lasix with Metolazone per Cardiology * Nephro/Cardio following * AM labs * Add Peridex mouth wash * On Anticoag/Amiodarone * Cont to monitor * Cont meds as below * Palliative care following * Will arrange [facility] [place] Review of Systems - Review of Systems Respiratory: SOB with Excertion. negative: Cough, Dry, Shortness of Breath, Hemoptysis, Pleuritic Pain, Sputum, Wheezing Cardiovascular: negative: chest pain, palpitations, orthopnea, paroxysmal nocturnal dyspnea, edema, light headedness Gastrointestinal: negative: Nausea, Vomiting, Abdominal Pain, Diarrhea, Constipation, Melena, Hematochezia - Medications/Allergies Allergies/Adverse Reactions: Allergies Allergy/AdvReac Type Severity Reaction Status Date / Time No Known Allergies Allergy Verified 11/21/17 21:24 Medications: Current Medications Acetaminophen (Tylenol) 650 mg PO Q4H PRN PRN Reason: Headache/Fever or Mild Pain Last Admin: 11/24/17 14:18 Dose: 650 mg Hydrocodone Bitart/Acetaminophen ([place] 5/325) 1 tab PO Q4H PRN PRN Reason: Moderate Pain (4-6) Last Admin: 11/26/17 10:30 Dose: 1 tab Alprazolam (Xanax) 0.25 mg PO BIDPRN PRN PRN Reason: Anxiety Last Admin: 11/26/17 20:44 Dose: 0.25 mg Amiodarone HCl (Cordarone) 200 mg PO DAILY [facility] Last Admin: 11/28/17 07:45 Dose: 200 mg Ammonium Lactate (Laclotion) 0 gm [facility] Last Admin: 11/27/17 20:45 Dose: 1 gm Ascorbic Acid (Vitamin C) 1,000 mg PO DAILY [facility] Aspirin (Ecotrin) 81 mg PO DAILY [facility] Last Admin: 11/28/17 07:45 Dose: 81 mg Atorvastatin Calcium (Lipitor) 40 mg PO HS [facility] Last Admin: 11/27/17 20:43 Dose: 40 mg Calcium Carbonate (Tums) 1,000 mg PO Q4H PRN PRN Reason: Heartburn or Indigestion Last Admin: 11/25/17 16:30 Dose: 1,000 mg Calcium/Vitamin D (Caltrate 600 + Vit D) 1 tab PO BID-[facility] Chlorhexidine Gluconate (Chlorhexidine Gluconate) 15 ml SSP QID [facility] Clonidine (Catapres) 0.1 mg PO Q4H PRN PRN Reason: Systolic BP > 180 Dextrose/Water (Dextrose 50%) 25 gm SLOW IVP PRN PRN PRN Reason: Hypoglycemia Docusate Sodium (Colace) 100 mg PO BID [facility] Last Admin: 11/28/17 07:45 Dose: 100 mg Enoxaparin Sodium (Lovenox) 80 mg SC DAILY [facility] Famotidine (Pepcid) 20 mg PO BID [facility] Last Admin: 11/28/17 07:44 Dose: 20 mg Furosemide (Lasix) 80 mg SLOW IVP 0600,1400 [facility] Last Admin: 11/28/17 15:33 Dose: 80 mg Glipizide (Glucotrol) 5 mg PO DAILY-[facility] Last Admin: 11/28/17 07:43 Dose: 5 mg Glucagon (Glucagon) 1 mg IM PRN PRN PRN Reason: Hypoglycemia Hydralazine HCl (Apresoline) 25 mg PO TID [facility] Last Admin: 11/28/17 15:33 Dose: 25 mg Dextrose/Water (D5w) 1,000 mls @ 0 mls/hr IV .Q0M PRN; As Directed PRN Reason: Hypoglycemia Dobutamine HCl/Dextrose (Dobutamine 500 Mg/250 Ml) 250 mls @ 12.723 mls/hr IVPB INF [facility]; 5 MCG/KG/MIN PRN Reason: Protocol Last Admin: 11/27/17 20:43 Dose: 250 mls Insulin Human Regular (Humulin R) 0 units SC .MILD SLIDING SCALE PRN PRN Reason: Mild Correctional Scale Last Admin: 11/25/17 16:37 Dose: 2 units Insulin Human Regular (Humulin R) 0 units SC .BEDTIME SLIDING SC PRN PRN Reason: Bedtime Correctional Scale Isosorbide Dinitrate (Isordil) 20 mg PO TID [facility] Last Admin: 11/28/17 15:33 Dose: 20 mg Labetalol HCl (Normodyne) 10 mg SLOW IVP Q4H PRN PRN Reason: Systolic BP > 180 Metolazone (Zaroxolyn) 5 mg PO 0830 [facility] Last Admin: 11/28/17 07:43 Dose: 5 mg Multivitamins (Theragran) 1 tab PO DAILY [facility] Last Admin: 11/28/17 07:44 Dose: 1 tab Nitroglycerin (Nitrostat) 0.4 mg PO Q5MIN PRN PRN Reason: Chest Pain Ondansetron HCl (Zofran Odt) 4 mg PO Q6H PRN PRN Reason: Nausea/Vomiting Ondansetron HCl (Zofran) 4 mg IVP Q6H PRN PRN Reason: Nausea/Vomiting Senna (Senokot) 2 tab PO HSPRN PRN PRN Reason: Constipation Sodium Chloride (Flush - Normal Saline) 10 ml IVF Q12HR [facility] Last Admin: 11/28/17 07:47 Dose: 10 ml Sodium Chloride (Flush - Normal Saline) 10 ml IVF PRN PRN PRN Reason: Saline Flush Last Admin: 11/28/17 15:33 Dose: 10 ml
[2017-11-28] MEDS: Calcium Carbonate + Vit D 1 TAB PO SCH (18:25)
[2017-11-28] MEDS: Chlorhexidine Gluconate 15 ML UDCUP SSP SCH ×2 (18:25→21:32)
[2017-11-28] MEDS: Atorvastatin Calcium 40 MG TAB PO SCH (20:11)
[2017-11-28] MEDS: Ammonium Lactate 12% Lotion 225 GM BOT TOP SCH (20:12)
[2017-11-28] MEDS: DOBUTamine 500 mg/250 ml 250 ML IVPB SCH (20:13)
[2017-11-28] MEDS ORDERED: Heparin 5,000 UNITS/ML VIAL SC SCH (21:00)
--- NOTE | 2017-11-28 21:27 | PRG ---
DATE OF SERVICE: 11/28/2017 SUBJECTIVE: Patient was seen and examined at bedside and overnight events noted. Patient denies any shortness of breath or chest pain or palpitation. No history of nausea or vomiting or diarrhea or f ever or chills or cramps. OBJECTIVE: GENERAL: This is a well-built male, in no apparent distress. VITAL SIGNS: Temperature 98.1, pulse 75, respiratory rate 18, blood pressure 116/55. HEENT: Atraumatic, normocephalic, oral mucosa is moist. NECK: Supple. CARDIOVASCULAR: S1, S2 heard, rate and rhythm regular. RESPIRATORY: Clear to auscultation. GASTROINTESTINAL: Abdomen is soft. MUSCULOSKELETAL: No tenderness, no edema. DERMATOLOGIC: No skin rash. NEUROLOGIC: Alert and awake and oriented x3. No focal neurologic deficits. Moving all the extremit ies. PSYCHIATRIC: Mood and affect normal. LABORATORY DATA: Potassium is 3.6, BUN is 43, creatinine 2.02. ASSESSMENT AND PLAN: 1. Acute kidney injury on chronic kidney disease, stage 3, secondary to cardiorenal syndrome, gettin g better with inotropes. 2. Chronic kidney disease. 3. Cardiorenal syndrome. 4. Hyponatremia. 5. Hypertension. 6. Polysubstance abuse. Overall getting better. Renal function is getting better. We will follow. Avoid nephrotoxins. Con tinue supportive care and continue inotropes. Follow with Cardiology.
[2017-11-29 05:42] LABS: #Eosinphils 0.2 thou/uL (0.0-0.7); #Lymphocytes 1.5 thou/uL (1.20-3.40); #Monocytes 1.5 thou/uL (0.11-0.59); #Neutrophils 8.6 thou/uL (1.40-6.50); %Basophils 0.2 % (0.0-1.0); %Eosinophils 1.9 % (0.0-10.0); %Lymphocytes 12.4 % (21.0-51.0); %Monocytes 12.5 % (0.0-10.0); Mean Corpuscular HGB CONC 31.8 g/dL (32.0-36.0); Mean Corpuscular Hemoglobin 29.5 pg (27.0-31.0); Mean Corpuscular Volume 92.8 fl (80.0-94.0); Mean Platelet Volume 9.6 fL (7.4-10.4); Platelet Count 182 thou/uL (130-400); RBC Distribution Width 15.1 % (11.5-14.5); Red Blood Cell (RBC) Count 3.72 mill/uL (4.70-6.10); White Blood Cell (WBC) Count 11.7 thou/uL (4.8-10.8)
[2017-11-29 05:51] LABS: Albumin 3.5 g/dL (3.5-5.0); Anion Gap 12 mmol/L (10-20); BUN (Urea Nitrogen) 39 mg/dL (8.4-25.7); BUN/Creatinine Ratio 21.43; Calc. Creatinine Clearance 47 mL/min (70-130); Calcium 9.3 mg/dL (7.8-10.44); Carbon Dioxide 31 mmol/L (22-29); Chloride 94 mmol/L (98-107); Estimated GFR-MDRD 47; Glucose 192 mg/dL (70-105); Magnesium 2.1 mg/dL (1.6-2.6); Phosphorus 3.3 mg/dL (2.3-4.7); Potassium 3.6 mmol/L (3.5-5.1); Sodium 133 mmol/L (136-145)
[2017-11-29] MEDS: Furosemide 100 MG/10 ML VIAL SLOW IVP SCH ×2 (06:01→15:37)
[2017-11-29] MEDS: Metolazone 5 MG TAB PO SCH (08:51)
[2017-11-29] MEDS: Amiodarone 200 MG TAB PO SCH (08:51)
[2017-11-29] MEDS: Calcium Carbonate + Vit D 1 TAB PO SCH ×2 (08:51→18:45)
[2017-11-29] MEDS: Ascorbic Acid 500 mg Chewable Tablet PO SCH (08:51)
[2017-11-29] MEDS: glipiZIDE 5 MG TAB PO SCH (08:51)
[2017-11-29] MEDS: hydrALAZINE 25 MG TAB PO SCH ×3 (08:52→20:41)
[2017-11-29] MEDS: Famotidine 20 MG TAB PO SCH ×2 (08:52→20:42)
[2017-11-29] MEDS: Isosorbide Dinitrate 20 MG TAB PO SCH ×3 (08:52→20:42)
[2017-11-29] MEDS: Docusate 100 MG CAP PO SCH ×2 (08:52→20:41)
[2017-11-29] MEDS: Aspirin 81 mg Enteric Coated Tablet PO SCH (08:52)
[2017-11-29] MEDS: Multivit, Therapeutic 1 TAB PO SCH (08:52)
[2017-11-29] MEDS: Insulin Regular 300 UNITS/3 ML VIAL SC PRN (08:53)
[2017-11-29] MEDS ORDERED: Enoxaparin Sodium 80 MG/0.8 ML SYRINGE SC SCH (09:00)
--- NOTE | 2017-11-29 10:01 | PDOC.PN ---
- Subjective Encounter Start Date: 11/29/17 Encounter Start Time: 10:00 Mr. Irving says he feels ok today. He denies any shortness of breath. He has been up walking, without difficulty. He denies any chest pain. He has noted some gum bleeding. - Objective Resuscitation Status: Resuscitation Status FULL:Full Resuscitation MAR Reviewed: Yes Vital Signs & Weight: Vital Signs (12 hours) Temp Pulse Resp BP BP BP Pulse Ox 11/29/17 08:52 73 147/70 H 11/29/17 04:00 97.9 F 75 18 139/66 98 11/29/17 00:00 98.9 F 72 18 136/63 98 Weight Weight 166 lb 11.2 oz I&O: 11/28/17 11/29/17 11/30/17 06:59 06:59 06:59 Intake Total 634 1880 Output Total 3075 7150 Balance -1952 -9745 Result Diagrams: 11/29/17 05:10 11/29/17 05:10 Additional Labs: Accuchecks 11/29/17 11/28/17 11/28/17 06:06 20:00 17:15 POC Glucose 207 H 237 H 113 H 11/28/17 11:34 POC Glucose 99 Phys Exam - Physical Examination HEENT: PERRLA Poor dentition, and loose teeth, with some blood oozing Respiratory: no wheezing, no rales, no rhonchi, clear to auscultation bilateral Cardiovascular: RRR, no significant murmur Gastrointestinal: soft, non-tender, positive bowel sounds Musculoskeletal: no edema Dx/Plan (1) Acute on chronic systolic heart failure Code(s): I50.23 - ACUTE ON CHRONIC SYSTOLIC (CONGESTIVE) HEART FAILURE Status : Acute (2) Jurhw-lx-yzihriw kidney injury Code(s): N17.9 - ACUTE KIDNEY FAILURE, UNSPECIFIED; N18.9 - CHRONIC KIDNEY DISEASE, UNSPECIFIED Status: Acute (3) Atrial flutter Code(s): I48.92 - UNSPECIFIED ATRIAL FLUTTER Status: Acute (4) Pulmonary embolism Code(s): I26.99 - OTHER PULMONARY EMBOLISM WITHOUT ACUTE COR PULMONALE Status : Acute (5) S/P ablation of atrial flutter Code(s): Z98.89 - OTHER SPECIFIED POSTPROCEDURAL STATES * DO NOT USE *; Z86.79 - PERSONAL HISTORY OF OTHER DISEASES OF THE CIRCULATORY SYSTEM Status: Acute (6) CAD (coronary artery disease) Code(s): I25.10 - ATHSCL HEART DISEASE OF [place] CORONARY ARTERY W/O ANG PCTRS Status: Chronic Qualifiers: Coronary Disease-Associated Artery/Lesion type: [place] artery [place] vs. transplanted heart: [place] heart Associated angina: without angina Qualified Code(s): I25.10 - Atherosclerotic heart disease of [place] coronary artery without angina pectoris (7) Cocaine abuse Code(s): F14.10 - COCAINE ABUSE, UNCOMPLICATED Status: Chronic (8) DM type 2 (diabetes mellitus, type 2) Status: Chronic Qualifiers: Diabetes mellitus complication status: with kidney complications Diabetes mellitus complication detail: with chronic kidney disease Diabetes mellitus [facility] insulin use: with long term care social worker use Chronic kidney disease stage: stage 3 (moderate) Qualified Code(s): E11.22 - Type 2 diabetes mellitus with diabetic chronic kidney disease; N18.3 - Chronic kidney disease, stage 3 ( moderate); N18.3 - Chronic kidney disease, stage 3 (moderate); Z79.4 - intermediate frame tender (current) use of insulin; Z79.4 - intermediate frame tender (current) use of insulin; Z79.4 - penitentiary (current) use of insulin; Z79.4 - penitentiary (current) use of insulin (9) COPD (chronic obstructive pulmonary disease) Status: Chronic - Plan * Acute on chronic systolic heart failure- patient has diuresed very well. his weight is down to 166, from 192 on admission. He continued on the Dobutamine drip * AFIB/ Aflutter- he is now in sinus rhythm, after Cardioversion on 11/24 * Continue Amiodarone * Acute renal failure- creatinine is down to 1.82 today- improved * PE- he has been resumed on Lovenox, after it was held due to some traumatic gum bleeding- He will need to be transitioned to an oral anticoagulant. He has taken Xarelto before, and is familiar with the medication and side effects- will transition at discharge * COPD- stable * DM- blood glucose is slightly elevated, but stable overall.
[2017-11-29] MEDS: Chlorhexidine Gluconate 15 ML UDCUP SSP SCH ×4 (10:24→20:52)
--- NOTE | 2017-11-29 15:23 | PDOC.CTH ---
<Valeria Escobar - Last Filed: 11/29/17 15:21> Cardiology Progress Note - Subjective The pt seen and examined. No overnight events. No cardiac complaints. He still complains of bleeding from front teeth today. - Objective Vital Signs Temp Pulse Resp BP BP BP Pulse Ox 11/29/17 11:45 96.3 F L 84 18 128/63 98 11/29/17 08:52 73 147/70 H 11/29/17 08:00 97.2 F L 73 17 99 11/29/17 04:00 97.9 F 75 18 139/66 98 Weight 166 lb 11.2 oz 11/28/17 11/29/17 11/30/17 06:59 06:59 06:59 Intake Total 634 1880 Output Total 3071 3516 Balance -2092 -8755 - Physical Examination General/Neuro: alert & oriented x3 Neck: no JVD present Lungs: CTA Heart: RRR Abdomen: soft Extremities: other: (1+ pitting edema to LLE) - Labs Result Diagrams: 11/29/17 05:10 11/29/17 05:10 Troponin/CKMB CK-MB (CK-2) 2.3 ng/mL (0-6.6) 11/21/17 16:12 Troponin I 0.054 ng/mL (< 0.028) H 11/21/17 22:04 - Assessment/Plan 1. Acute on chronic systolic/diastolic HF - DONNA on 11/24/17 showed Severely decreased LVEF, Bilat. atrial enlargements, LVH, mild-mod MR, mod TR, and no Thrombus in LA or appendage. On BBlocker, Lasix, Metolazone, and Dobutamine, but no ACEI/ARB/Aldactone due to renal dysfunction. 2. AFlutter with RVR with s/p DONNA and Cardioversion on 11/24/17 - maintains in SR with Amiodarone and Labetrol; cont. monitor on tele 3. Small PE in LLL - on Lovenox 80mg SUBQ; dose adjusted for renal function by PCP 4. FIDENCIO on CKD stage 3. - Cont. improving; managed by toe puller 5. CAD with Hx of stent placement - Stable with bblocker and ASA; cont. monitor on tele 6. DM type 2 - on sliding scale & oral hypoglycemic 8. COPD - stable with 2LNC 9. Chronic cocaine use and tobacco abuse - Cessation education given to the pt 10. Abnormal LFT probably secondary to passive hepatic congestion/Elevated troponins due to CHF/Chronic anemia/NSVT MAR reviewed Review of Systems - Review of Systems Constitutional: reports: no symptoms reported EENTM: reports: no symptoms reported Respiratory: reports: no symptoms reported Cardiac (ROS): reports: no symptoms reported ABD/GI: reports: no symptoms reported : reports: no symptoms reported Skin: reports: see HPI <Patrick Herman - Last Filed: 11/30/17 09:54> Cardiology Progress Note - Objective Vital Signs Temp Pulse Resp BP BP BP Pulse Ox 11/30/17 09:08 85 129/78 11/30/17 03:58 99.0 F 88 15 118/56 L 98 11/30/17 00:00 98.0 F 77 18 128/62 96 Weight 157 lb 8 oz 11/29/17 11/30/17 12/01/17 06:59 06:59 06:59 Intake Total 1880 1863 Output Total 4777 1306 Balance -2949 -0171 - Labs Result Diagrams: 11/30/17 04:40 11/30/17 04:40 Troponin/CKMB CK-MB (CK-2) 2.3 ng/mL (0-6.6) 11/21/17 16:12 Troponin I 0.054 ng/mL (< 0.028) H 11/21/17 22:04 - Assessment/Plan Pt. seen and eval. by me. I agree with the A/P by the PRISONER CLASSIFICATION INTERVIEWER.
--- NOTE | 2017-11-29 16:51 | PRG ---
DATE OF SERVICE: 11/29/2017 SUBJECTIVE: Patient was seen and examined at bedside and overnight events noted. Patient denies any shortness of breath or chest pain or palpitation. No history of nausea or vomiting or diarrhea or f ever or chills or cramps. OBJECTIVE: GENERAL: This is a well-built male in no apparent distress. VITAL SIGNS: Temperature 96.3, pulse 84, respiratory rate 18, blood pressure 128/63. HEENT: Atraumatic, normocephalic. Oral mucosa is moist. NECK: Supple. CARDIOVASCULAR: S1, S2 heard. Rate and rhythm regular. RESPIRATORY: Clear to auscultation. GASTROINTESTINAL: Abdomen is soft. MUSCULOSKELETAL: No tenderness. No edema. DERMATOLOGIC: No skin rash. NEUROLOGIC: Alert and awake and oriented x3. No focal neurologic deficits. Moving all the extremiti es. PSYCHIATRIC: Mood and affect normal. LABORATORY DATA: Potassium is 3.6, BUN is 39, and creatinine 1.8. ASSESSMENT AND PLAN: 1. Acute kidney injury with chronic kidney disease, stage 3. 2. Cardiorenal syndrome. 3. Hyponatremia. 4. Hypertension. 5. Polysubstance abuse. 6. Renal function continues to get better with inotropes and Lasix. We will continue to follow.
[2017-11-29] MEDS: DOBUTamine 500 mg/250 ml 250 ML IVPB SCH (18:48)
[2017-11-29] MEDS: Atorvastatin Calcium 40 MG TAB PO SCH (20:41)
[2017-11-29] MEDS: ALPRAZolam 0.25 MG TAB PO PRN (20:51)
[2017-11-29] MEDS: Ammonium Lactate 12% Lotion 225 GM BOT TOP SCH (20:52)
[2017-11-30 04:55] LABS: Hemoglobin 12.2 g/dL (14.0-18.0); Platelet Count 176 thou/uL (130-400)
[2017-11-30 05:05] LABS: Anion Gap 12 mmol/L (10-20); BUN (Urea Nitrogen) 43 mg/dL (8.4-25.7); Calc. Creatinine Clearance 50 mL/min (70-130); Calcium 9.6 mg/dL (7.8-10.44); Carbon Dioxide 30 mmol/L (22-29); Chloride 92 mmol/L (98-107); Estimated GFR-MDRD 53; Glucose 242 mg/dL (70-105); Sodium 130 mmol/L (136-145)
[2017-11-30] MEDS: Furosemide 100 MG/10 ML VIAL SLOW IVP SCH (05:19)
[2017-11-30] MEDS ORDERED: Spironolactone 25 MG TAB PO SCH (08:45)
--- NOTE | 2017-11-30 08:49 | PDOC.PN ---
- Subjective Encounter Start Date: 11/30/17 Encounter Start Time: 08:47 Mr. Irving was seen today in follow-up. He is breathing ok. He denies any chest pain or shortness of breath. He had another fairly severe bleeding episode with his teeth, when Lovenox was given yesterday. - Objective Resuscitation Status: Resuscitation Status FULL:Full Resuscitation MAR Reviewed: Yes Vital Signs & Weight: Vital Signs (12 hours) Temp Pulse Resp BP BP Pulse Ox 11/30/17 03:58 99.0 F 88 15 118/56 L 98 11/30/17 00:00 98.0 F 77 18 128/62 96 Weight Weight 157 lb 8 oz I&O: 11/29/17 11/30/17 12/01/17 06:59 06:59 06:59 Intake Total 1880 1863 Output Total 7190 4475 Balance -5270 -2612 Result Diagrams: 11/30/17 04:40 11/30/17 04:40 Additional Labs: Accuchecks 11/30/17 11/29/17 11/29/17 06:18 20:44 17:13 POC Glucose 203 H 223 H 179 H 11/29/17 10:42 POC Glucose 188 H Phys Exam - Physical Examination HEENT: PERRLA poor dentition Respiratory: no wheezing, no rales, no rhonchi, clear to auscultation bilateral Cardiovascular: RRR, no significant murmur, no rub Gastrointestinal: soft, non-tender, positive bowel sounds Musculoskeletal: no edema Dx/Plan (1) Acute on chronic systolic heart failure Code(s): I50.23 - ACUTE ON CHRONIC SYSTOLIC (CONGESTIVE) HEART FAILURE Status : Acute (2) Nmcno-tu-wbijmhz kidney injury Code(s): N17.9 - ACUTE KIDNEY FAILURE, UNSPECIFIED; N18.9 - CHRONIC KIDNEY DISEASE, UNSPECIFIED Status: Acute (3) Atrial flutter Code(s): I48.92 - UNSPECIFIED ATRIAL FLUTTER Status: Acute (4) Pulmonary embolism Code(s): I26.99 - OTHER PULMONARY EMBOLISM WITHOUT ACUTE COR PULMONALE Status : Acute (5) S/P ablation of atrial flutter Code(s): Z98.89 - OTHER SPECIFIED POSTPROCEDURAL STATES * DO NOT USE *; Z86.79 - PERSONAL HISTORY OF OTHER DISEASES OF THE CIRCULATORY SYSTEM Status: Acute (6) CAD (coronary artery disease) Code(s): I25.10 - ATHSCL HEART DISEASE OF [place] CORONARY ARTERY W/O ANG PCTRS Status: Chronic Qualifiers: Coronary Disease-Associated Artery/Lesion type: [place] artery [place] vs. transplanted heart: [place] heart Associated angina: without angina Qualified Code(s): I25.10 - Atherosclerotic heart disease of [place] coronary artery without angina pectoris (7) Cocaine abuse Code(s): F14.10 - COCAINE ABUSE, UNCOMPLICATED Status: Chronic (8) DM type 2 (diabetes mellitus, type 2) Status: Chronic Qualifiers: Diabetes mellitus complication status: with kidney complications Diabetes mellitus complication detail: with chronic kidney disease Diabetes mellitus intermediate insulin use: with intermodal truck driver use Chronic kidney disease stage: stage 3 (moderate) Qualified Code(s): E11.22 - Type 2 diabetes mellitus with diabetic chronic kidney disease; N18.3 - Chronic kidney disease, stage 3 ( moderate); N18.3 - Chronic kidney disease, stage 3 (moderate); Z79.4 - continuous churn buttermaker (current) use of insulin; Z79.4 - continuous churn buttermaker (current) use of insulin; Z79.4 - continuous churn buttermaker (current) use of insulin; Z79.4 - continuous churn buttermaker (current) use of insulin (9) COPD (chronic obstructive pulmonary disease) Status: Chronic - Plan * Acute on chronic systolic heart failure- improved- plan is to wean him from the Dobutamin drip today * Will hold Lovenox for today * DM- blood glucose is stable * AFIB and AFlutter- patient has remained in sinus rhythm- post cardioversion * Hopefully home tomorrow on Hospice.
[2017-11-30] MEDS: Famotidine 20 MG TAB PO SCH ×2 (09:08→20:16)
[2017-11-30] MEDS: hydrALAZINE 25 MG TAB PO SCH ×3 (09:08→20:15)
[2017-11-30] MEDS: Insulin Regular 300 UNITS/3 ML VIAL SC PRN ×3 (09:08→18:06)
[2017-11-30] MEDS: Chlorhexidine Gluconate 15 ML UDCUP SSP SCH ×4 (09:08→20:15)
[2017-11-30] MEDS: Docusate 100 MG CAP PO SCH ×2 (09:08→20:15)
[2017-11-30] MEDS: Multivit, Therapeutic 1 TAB PO SCH (09:09)
[2017-11-30] MEDS: Isosorbide Dinitrate 20 MG TAB PO SCH ×3 (09:09→20:15)
[2017-11-30] MEDS: Aspirin 81 mg Enteric Coated Tablet PO SCH (09:09)
[2017-11-30] MEDS: Ascorbic Acid 500 mg Chewable Tablet PO SCH (09:09)
[2017-11-30] MEDS: Amiodarone 200 MG TAB PO SCH (09:10)
[2017-11-30] MEDS: glipiZIDE 5 MG TAB PO SCH (09:10)
[2017-11-30] MEDS: Calcium Carbonate + Vit D 1 TAB PO SCH ×2 (09:10→18:04)
--- NOTE | 2017-11-30 09:49 | PRG ---
DATE OF SERVICE: 11/30/2017 SUBJECTIVE: This is a 57-year-old male being seen for CKD. The patient denies any nausea, vomiting or chest pain. PHYSICAL EXAMINATION: GENERAL: Patient is awake, alert. VITAL SIGNS: Afebrile, pulse 85, breathing at 16, blood pressure 122/62. HEAD/NECK: Normocephalic. Atraumatic. EYES: EOMI. No deformity. EARS: Clear. No ulcers. NOSE: Intact. No lesions. MOUTH: Clear. No discharge. THROAT: Clear. No exudate. LUNGS: Clear. No crackles. CARDIAC: S1, S2. No rub. ABDOMEN: Benign. BS+. GENITALIA/RECTUM: George absent. BACK/EXTREMITIES: Edema 0+ Ulcer- NEUROLOGICAL: Alert and motor intact. SKIN: Rash- Bruise- LYMPHATICS: Edema- Ulcer- LABORATORY DATA: Show hemoglobin 12.2, creatinine was 1.6. ASSESSMENT AND RECOMMENDATIONS: 1. Acute kidney injury, improved. 2. Hypertension, stable. 3. Anemia, stable. 4. Medications based on glomerular filtration rate are appropriate. No indication for dialysis.
[2017-11-30] MEDS: Furosemide 20 MG TAB PO SCH ×2 (14:02→15:11)
[2017-11-30] MEDS: Carvedilol 6.25 MG TAB PO SCH (18:04)
[2017-11-30] MEDS: Atorvastatin Calcium 40 MG TAB PO SCH (20:16)
[2017-11-30] MEDS: Ammonium Lactate 12% Lotion 225 GM BOT TOP SCH (20:17)
[2017-12-01] MEDS ORDERED: Spironolactone 25 MG TAB PO SCH (08:00)
[2017-12-01] MEDS: Insulin Regular 300 UNITS/3 ML VIAL SC PRN (08:48)
[2017-12-01] MEDS: Furosemide 20 MG TAB PO SCH (08:52)
[2017-12-01] MEDS: Ascorbic Acid 500 mg Chewable Tablet PO SCH (08:52)
[2017-12-01] MEDS: Isosorbide Dinitrate 20 MG TAB PO SCH (08:52)
[2017-12-01] MEDS: Chlorhexidine Gluconate 15 ML UDCUP SSP SCH (08:52)
[2017-12-01] MEDS: Calcium Carbonate + Vit D 1 TAB PO SCH (08:53)
[2017-12-01] MEDS: glipiZIDE 5 MG TAB PO SCH (08:53)
[2017-12-01] MEDS: Aspirin 81 mg Enteric Coated Tablet PO SCH (08:54)
[2017-12-01] MEDS: hydrALAZINE 25 MG TAB PO SCH (08:54)
[2017-12-01] MEDS: Docusate 100 MG CAP PO SCH (08:54)
[2017-12-01] MEDS: Carvedilol 6.25 MG TAB PO SCH (08:54)
[2017-12-01] MEDS: Famotidine 20 MG TAB PO SCH (08:54)
[2017-12-01] MEDS: Amiodarone 200 MG TAB PO SCH (08:54)
[2017-12-01] MEDS: Multivit, Therapeutic 1 TAB PO SCH (08:55)
--- NOTE | 2017-12-01 10:11 | PDOC.PN ---
- Subjective Encounter Start Date: 12/01/17 Encounter Start Time: 10:07 Mr. Irving was seen today in follow-up. He does not have any complaints. He denies chest pain or dyspnea. - Objective Resuscitation Status: Resuscitation Status FULL:Full Resuscitation MAR Reviewed: Yes Vital Signs & Weight: Vital Signs (12 hours) Temp Pulse Resp BP BP Pulse Ox 12/01/17 08:54 68 124/83 12/01/17 07:55 97.8 F 68 16 124/83 97 12/01/17 04:00 97.3 F L 73 18 118/56 L 97 12/01/17 00:00 98.5 F 72 18 121/65 97 Weight Weight 158 lb 3.2 oz I&O: 11/30/17 12/01/17 12/02/17 06:59 06:59 06:59 Intake Total 1863 1470 Output Total 4475 3900 Balance -8693 -9029 Result Diagrams: 11/30/17 04:40 11/30/17 04:40 Additional Labs: Accuchecks 12/01/17 11/30/17 11/30/17 06:48 20:31 17:01 POC Glucose 274 H 313 H 167 H 11/30/17 11:46 POC Glucose 257 H Phys Exam - Physical Examination HEENT: PERRLA Respiratory: no wheezing, no rales, no rhonchi, clear to auscultation bilateral Cardiovascular: RRR, no significant murmur Gastrointestinal: soft, non-tender, positive bowel sounds Dx/Plan (1) Acute on chronic systolic heart failure Code(s): I50.23 - ACUTE ON CHRONIC SYSTOLIC (CONGESTIVE) HEART FAILURE Status : Acute (2) Cimtb-nm-inwkanb kidney injury Code(s): N17.9 - ACUTE KIDNEY FAILURE, UNSPECIFIED; N18.9 - CHRONIC KIDNEY DISEASE, UNSPECIFIED Status: Acute (3) Atrial flutter Code(s): I48.92 - UNSPECIFIED ATRIAL FLUTTER Status: Acute (4) Pulmonary embolism Code(s): I26.99 - OTHER PULMONARY EMBOLISM WITHOUT ACUTE COR PULMONALE Status : Acute (5) S/P ablation of atrial flutter Code(s): Z98.89 - OTHER SPECIFIED POSTPROCEDURAL STATES * DO NOT USE *; Z86.79 - PERSONAL HISTORY OF OTHER DISEASES OF THE CIRCULATORY SYSTEM Status: Acute (6) CAD (coronary artery disease) Code(s): I25.10 - ATHSCL HEART DISEASE OF [place] CORONARY ARTERY W/O ANG PCTRS Status: Chronic Qualifiers: Coronary Disease-Associated Artery/Lesion type: [place] artery [place] vs. transplanted heart: [place] heart Associated angina: without angina Qualified Code(s): I25.10 - Atherosclerotic heart disease of [place] coronary artery without angina pectoris (7) Cocaine abuse Code(s): F14.10 - COCAINE ABUSE, UNCOMPLICATED Status: Chronic (8) DM type 2 (diabetes mellitus, type 2) Status: Chronic Qualifiers: Diabetes mellitus complication status: with kidney complications Diabetes mellitus complication detail: with chronic kidney disease Diabetes mellitus hot mill roller insulin use: with hot mill roller use Chronic kidney disease stage: stage 3 (moderate) Qualified Code(s): E11.22 - Type 2 diabetes mellitus with diabetic chronic kidney disease; N18.3 - Chronic kidney disease, stage 3 ( moderate); N18.3 - Chronic kidney disease, stage 3 (moderate); Z79.4 - cable worker helper (current) use of insulin; Z79.4 - longterm (current) use of insulin; Z79.4 - cable worker helper (current) use of insulin; Z79.4 - cable worker helper (current) use of insulin (9) COPD (chronic obstructive pulmonary disease) Status: Chronic - Plan * Acute on chronic systolic heart failure- he is now off the Dobutamine drip, and has been stable * PE and gum bleeding- I spoke with Dr. Baig, and he does recommend taking Xarelto despite the gum bleeding- which was different from what the patient told me yesterday. I clarified this with Mr. Irving, and he now says that he " just won't take the medication" * I Have informed him of the risks of not taking anticoagulation including acute CVA, recurrent PE and . He says " he understands, and " everybody has to of something" * He was also told about a community resource at [facility] for low cost dental care * He is stable for discharge home .
--- NOTE | 2017-12-01 10:14 | PRG ---
DATE OF SERVICE: 12/01/2017 SUBJECTIVE: This 57-year-old male being seen for acute kidney injury. The patient denies any nausea , vomiting, or chest pain. PHYSICAL EXAMINATION: GENERAL: Patient is awake, alert. VITAL SIGNS: Afebrile, pulse 60, breathing at 16, blood pressure 124/83. OBJECTIVE: See above. Awake, alert, in no acute distress. GENERAL APPEARANCE AND MENTAL STATUS: Fair. HEAD/NECK: Normocephalic. Atraumatic. EYES: EOMI. No deformity. EARS: Clear. No ulcers. NOSE: Intact. No lesions. MOUTH: Clear. No discharge. THROAT: Clear. No exudate. LUNGS: Clear. No crackles. CARDIAC: S1, S2. No rub. ABDOMEN: Benign. BS+. GENITALIA/RECTUM: George absent. BACK/EXTREMITIES: Edema 0+ Ulcer- NEUROLOGICAL: Alert and motor intact. SKIN: Rash- Bruise- LYMPHATICS: Edema- Ulcer- LABORATORY: Hemoglobin 12.2, creatinine 1.6. ASSESSMENT AND RECOMMENDATIONS: 1. Chronic kidney disease stage 3, stable. 2. Hypertension, stable. 3. Anemia, stable. 4. Medications based on GFR are appropriate.
--- NOTE | 2017-12-01 12:32 | DIS ---
PRIMARY CARE PHYSICIAN: Luly Stockton, Family Nurse Practitioner DATE OF ADMISSION: 11/21/2017 DATE OF DISCHARGE: 12/01/2017 DISCHARGE DISPOSITION: Home with home hospice. DISCHARGE DIAGNOSES: 1. Acute on chronic systolic heart failure with an ejection fraction of 10-15%. 2. Acute pulmonary embolism. 3. History of coronary artery disease. 4. Hypertension. 5. Diabetes mellitus. 6. Chronic kidney disease stage 3. 7. History of polysubstance abuse. 8. Dyslipidemia. DISCHARGE MEDICATIONS: Spironolactone 25 mg daily, Xarelto 15 mg daily, potassium chloride 20 mEq da amos, isosorbide dinitrate 20 mg t.i.d., hydralazine 25 mg t.i.d. Glipizide 5 mg daily, Lasix 40 mg t wice a day, carvedilol 6.25 mg twice daily, Lipitor 40 mg daily, aspirin 81 mg daily, amiodarone 200 mg daily, albuterol nebs. PROCEDURES DONE DURING ADMISSION: The patient had a CT angiogram of the chest in which there was power dence of a small pulmonary embolism to the left lower lobe. There was some cardiomegaly with mild va scular congestion and a right pleural effusion, some nonspecific mediastinal and hilar adenopathy. T he patient had a lower extremity venous Doppler showing no evidence of DVT and this is both in either lower extremity. The patient had an echocardiogram, a transesophageal echo showing a severe decreas e in left ventricular systolic function. There was biatrial enlargement, left ventricle was markedly dilated. There was some pacemaker wire in the right ventricle. There was mild to moderate mitral r egurgitation, and no thrombus was noted in the left atrium or left atrial appendage CODE STATUS: Full code. ALLERGIES: No known drug allergies. HOSPITAL COURSE: Mr. Irving is a pleasant 57-year-old gentleman who was admitted to the hospital with complaints of chest discomfort which was substernal and worsened with exertion. He also noted increa sing lower extremity edema and shortness of breath while lying down. He was admitted and initially f ound to have a small pulmonary embolism and was started on anticoagulation for this. He was also fou nd to be in acute on chronic systolic heart failure and was diuresed with IV diuretics. His medicati ons were also adjusted. It was noted that he had some worsening of his renal function due to diuresi s. For this reason, he was transitioned over to a dobutamine drip and has had excellent diuresis wit h this. His weight went from 188 pounds on admission 158 pounds on discharge. The patient is not be ing discharged on an ARB or WENDIE inhibitor due to renal insufficiency and renal failure that he experi enced during the admission. His hospital course was also complicated by atrial fibrillation and atri al flutter which he underwent electrocardioversion. He has remained in sinus rhythm and has been allison bhaskar on amiodarone for this. He was recommended to be placed on anticoagulation post-cardioversion as well as for the pulmonary embolism; however, he suffered some injury to his teeth he believes during the cardioversion and has had lots of gum bleeding, I suspect he had extremely poor dentition prior to the cardioversion and I did explain this to him. He was concerned about the bleeding and has made a decision that he is not going to take anticoagulation. We did explain to him the risk of not taki ng Xarelto including recurrent pulmonary embolism, severe stroke and even . The patient said, " everybody has got to of something" and intends not to take it. We did give him some references t o community resources for dental care and the patient seemed to understand the instructions and he wi ll be discharged home with home hospice.
[2017-12-01 15:29] VITALS: BP 121/68; TEMP 98.1
== END 2017-12-01 13:20 | disposition hospice, home (50) | DRG 291 ==
LOC: ERS 15:19 → 2NO 18:10
PROVIDERS: ADMIT Internal Medicine; ATTEND Internal Medicine
PROC: B24BZZ4 Ultrasonography of Heart with Aorta, Transesophageal (ICD-10-PCS; 2017-11-24)
PROC: 5A2204Z Restoration of Cardiac Rhythm, Single (ICD-10-PCS; principal; 2017-12-01)
DX: I13.0 Hypertensive heart and chronic kidney disease with heart failure and stage 1 through stage 4 chronic kidney disease, or unspecified chronic kidney disease (principal); I50.43 Acute on chronic combined systolic (congestive) and diastolic (congestive) heart failure; I26.99 Other pulmonary embolism without acute cor pulmonale; N17.9 Acute kidney failure, unspecified; E87.2 Acidosis; I48.92 Unspecified atrial flutter; E11.22 Type 2 diabetes mellitus with diabetic chronic kidney disease; N18.3 Chronic kidney disease, stage 3 (moderate); E87.1 Hypo-osmolality and hyponatremia; Z95.810 Presence of automatic (implantable) cardiac defibrillator; Z82.49 Family history of ischemic heart disease and other diseases of the circulatory system; I25.10 Atherosclerotic heart disease of native coronary artery without angina pectoris; Z95.5 Presence of coronary angioplasty implant and graft; Z91.14 Patient's other noncompliance with medication regimen; J44.9 Chronic obstructive pulmonary disease, unspecified; F17.210 Nicotine dependence, cigarettes, uncomplicated; D64.9 Anemia, unspecified; E88.09 Other disorders of plasma-protein metabolism, not elsewhere classified; F14.10 Cocaine abuse, uncomplicated; Z79.4 Long term (current) use of insulin; K06.8 Other specified disorders of gingiva and edentulous alveolar ridge
CPT/HCPCS: 36415; 36416; 71045; 71275; 80048; 80053; 80069; 82553; 83605; 83690; 83735; 83880; 84100; 84484; 85014; 85018; 85025; 85049; 92960; 93005; 93312; 93798; 93970; 94760; 96365; 96372; 96376; 99406; A4216; J1250; J1650; J1815; J1940; J2704; J7050

== ENCOUNTER 2018-04-09 11:00 | Inpatient (IN) | payer MEDICARE, SELFPAY ==
--- NOTE | 2018-04-09 11:36 | RAD ---
1 VIEW CHEST: Date: 04/09/18 HISTORY: Pain. Shortness of breath. COMPARISON: None. FINDINGS: There is a single lead left-sided transvenous defibrillator. Lead terminates over the right ventricle . Heart is enlarged. Pulmonary vessels are within normal limits. Diffuse interstitial opacities are presumed to be due to edema. No consolidation. No pleural effusion . No pneumothorax. IMPRESSION: 1. Cardiomegaly 2. Interstitial edema. 3. Congestive heart failure. POS: ELENITA
[2018-04-09 11:41] LABS: #Basophils 0.1 thou/uL (0.0-0.2); #Eosinphils 0.1 thou/uL (0.0-0.7); #Lymphocytes 1.9 thou/uL (1.20-3.40); #Monocytes 0.4 thou/uL (0.11-0.59); %Basophils 0.7 % (0.0-1.0); %Eosinophils 1.4 % (0.0-10.0); %Lymphocytes 22.6 % (21.0-51.0); %Monocytes 4.4 % (0.0-10.0); %Neutrophils 70.9 % (42.0-75.0); Hemoglobin 12.4 g/dL (14.0-18.0); Mean Corpuscular Hemoglobin 29.7 pg (27.0-31.0); Mean Platelet Volume 9.6 fL (7.4-10.4); Platelet Count 176 thou/uL (130-400); Red Blood Cell (RBC) Count 4.18 mill/uL (4.70-6.10); White Blood Cell (WBC) Count 8.4 thou/uL (4.8-10.8)
[2018-04-09 12:06] LABS: CKMB 2.2 ng/mL (0-6.6)
[2018-04-09 12:08] LABS: ALT (SGPT) 9 U/L (8-55); AST (SGOT) 13 U/L (5-34); Albumin 3.9 g/dL (3.5-5.0); Alkaline Phosphatase 94 U/L (40-150); Anion Gap 16 mmol/L (10-20); BUN (Urea Nitrogen) 18 mg/dL (8.4-25.7); Bilirubin, Total 1.6 mg/dL (0.2-1.2); CK (CPK) 94 U/L (30-200); Calc. Creatinine Clearance 0 mL/min (70-130); Calcium 9.5 mg/dL (7.8-10.44); Carbon Dioxide 20 mmol/L (22-29); Chloride 105 mmol/L (98-107); Estimated GFR-MDRD 49; Globulin 3.8 g/dL (2.4-3.5); Glucose 303 mg/dL (70-105); Lipase 16 U/L (8-78); Potassium 4.6 mmol/L (3.5-5.1); Protein, Total 7.7 g/dL (6.0-8.3); Sodium 136 mmol/L (136-145); Troponin I 0.677 ng/mL (< 0.028)
[2018-04-09] MEDS ORDERED: Furosemide 40 MG/4 ML VIAL ONE (12:38)
[2018-04-09 12:48] LABS: Bilirubin Small (Negative); Blood, Urine Trace (Negative); Clarity CLEAR (Clear); Glucose, Urine (Dipstick) 500 mg/dL (Negative); Leukocyte Trace (Negative); Nitrite Negative (Negative); Protein, Urine (Dipstick) 300 mg/dL (Neg-Trace); Specific Gravity, Urine 1.021 (1.002-1.036); pH, Urine 5.5 (5.0-9.0)
[2018-04-09 12:54] LABS: Bacteria/HPF None Seen HPF (None Seen); Hyaline Casts/LPF 0-3 HYALINE CAST LPF (0-3 Hyaline); Pathc Cast-AUWi Flag 0.29 (0-2.49); Squamous Epithelial 0-3 HPF (0-3); WBC/HPF 0-3 HPF (0-3)
[2018-04-09] MEDS ORDERED: Dextrose 5% in Water 1,000 ML IV PRN (14:50)
[2018-04-09] MEDS ORDERED: Ondansetron ODT 4 MG TAB PO PRN (14:50)
[2018-04-09] MEDS ORDERED: Sodium Chloride 0.65% Nasal 44 ML BOT EA NARE PRN (14:50)
[2018-04-09] MEDS ORDERED: Loratadine 10 MG TAB PO PRN (14:50)
[2018-04-09] MEDS ORDERED: Nitroglycerin 0.4 MG TAB (25 Tab Bottle) SL PRN (14:50)
[2018-04-09] MEDS ORDERED: Dextrose 50% Abboject 50 ML SYRINGE SLOW IVP PRN (14:50)
[2018-04-09] MEDS ORDERED: Diabetic Tussin 200 MG/10 ML UDCUP PO PRN (14:50)
[2018-04-09] MEDS ORDERED: Acetaminophen 325 MG TAB PO PRN (14:50)
[2018-04-09] MEDS ORDERED: Eucerin (Mineral Oil/Petrolatum,White) 30 gm Jar TOP PRN (14:50)
[2018-04-09] MEDS ORDERED: Artificial Tear Sol 15 ML BOT EA EYE PRN (14:50)
[2018-04-09] MEDS ORDERED: Ondansetron HCl/PF 4 MG/2 ML Vial IVP PRN (14:50)
[2018-04-09] MEDS ORDERED: Chloraseptic Spray 180 ml Bottle PO PRN (14:50)
[2018-04-09] MEDS ORDERED: HumaLOG 300 UNITS/3 ML VIAL SC PRN (14:50)
[2018-04-09] MEDS ORDERED: Mag-Al 1200 mg/1200 mg/30 ML UDCUP PO PRN (14:50)
[2018-04-09] MEDS ORDERED: Zolpidem Tartrate 5 MG TAB PO PRN (14:50)
[2018-04-09] MEDS ORDERED: HYDROcodone/Acetaminophen 5/325 mg Tablet PO PRN (14:50)
[2018-04-09] MEDS ORDERED: Senokot 8.6 MG TAB PO PRN (14:50)
[2018-04-09] MEDS ORDERED: Loperamide HCl 2 MG CAP PO PRN (14:50)
[2018-04-09] MEDS ORDERED: hydrALAZINE 20 MG/ML VIAL SLOW IVP PRN (14:50)
[2018-04-09] MEDS ORDERED: Milk Of Magnesia 30 ML UDCUP PO PRN (14:50)
[2018-04-09] MEDS ORDERED: PROVENTIL INHALER 6.7 G (200 INHALATIONS) INH PRN (15:15)
[2018-04-09 15:17] LABS: Troponin I 0.712 ng/mL (< 0.028)
[2018-04-09 15:32] VITALS: BMI 25.4
[2018-04-09 15:38] LABS: Amphetamine Not Detected (NotDetected); Barbiturates Screen Not Detected (NotDetected); Benzodiazepine Screen Not Detected (NotDetected); Cocaine Metabolite Screen Detected (NotDetected); Medtox Control Line Valid? VALID (VALID); Medtox Reader # READER 1; Methadone Not Detected (NotDetected); Methamphetamine Not Detected (NotDetected); Opiate Screen Not Detected (NotDetected); Oxycodone Screen Not Detected (NotDetected); Phencyclidine (PCP) Not Detected (NotDetected); THC/Cannabinoid Screen Not Detected (NotDetected); Tricyclic Screen Not Detected (NotDetected)
--- NOTE | 2018-04-09 15:38 | HP ---
PRIMARY CARE PHYSICIAN: [facility] call admission. REASON FOR ADMISSION: Acute on chronic systolic congestive heart failure exacerbation, chest pain, e levated troponin. HISTORY OF PRESENT ILLNESS: A 57-year-old -[place] male, who has underlying history of chron ic systolic heart failure with EF 10%-15% as well as COPD and a history of cocaine abuse, who present ed to emergency room with a complaint of chest pain and shortness of breath. Patient reports that he was with hospice and hospice took off all medication and he was not getting any medication and that is why he was experiencing increasing shortness of breath, increasing chest pain. He reports orthopn ea, he also reports occasional PND, and he also reports increasing lower extremity edema. The patien t, otherwise, a poor historian. He also fluctuates his history. He complains of blurry vision and n ausea. He denies any focal motor or sensory symptoms. He denies any fever or chills. He does repor t cough, dry in nature. He denies any fever or chills. He denies any upper respiratory infection sy mptoms. He denies any UTI symptoms. He denies any constipation, diarrhea, melena, hematochezia. Terry norton reports that he is not taking any medication for almost a week and a half. PAST MEDICAL HISTORY: Chronic systolic heart failure with EF 10%-15%; coronary artery disease with a history of stent; hypertension; diabetes, type 2; CKD, stage 3; history of polysubstance abuse inclu ding cocaine; chronic normocytic anemia; dyslipidemia. PAST SURGICAL HISTORY: AICD placement, cardiac catheterization. PAST PSYCHIATRIC HISTORY: Reviewed and negative. ALLERGIES: No known drug allergy. CURRENT HOME MEDICATIONS: Albuterol sulfate 2 puffs q.6 hourly p.r.n., amiodarone 200 mg p.o. daily, aspirin 81 mg p.o. daily, Lipitor 40 mg p.o. at bedtime, Coreg 6.25 mg p.o. b.i.d., Lasix 40 mg p.o. b.i.d., Glucotrol 5 mg p.o. daily, hydralazine 25 mg p.o. t.i.d., isosorbide dinitrate 25 mg p.o. t. i.d., potassium chloride 20 mEq p.o. daily, Xarelto 15 mg p.o. daily, Aldactone 25 mg p.o. daily. SOCIAL HISTORY: The patient has long history of cocaine and tobacco abuse. He denies any alcohol ab use. He denies any marijuana abuse. FAMILY HISTORY: Hypertension, heart disease runs among several family members. REVIEW OF SYSTEMS: The following complete review of systems was negative, unless otherwise mentioned in the HPI or below: Constitutional: Weight loss or gain, ability to conduct usual activities. Sk in: Rash, itching. Eyes: Double vision, pain. ENT/Mouth: Nose bleeding, neck stiffness, pain, te nderness. Cardiovascular: Palpitations, dyspnea on exertion, orthopnea. Respiratory: Shortness of breath, wheezing, cough, hemoptysis, fever, or night sweats. Gastrointestinal: Poor appetite, abdo mera pain, heartburn, nausea, vomiting, constipation, or diarrhea. Genitourinary: Urgency, frequen cy, dysuria, nocturia. Musculoskeletal: Pain, swelling. Neurologic/Psychiatric: Anxiety, depressi on. Allergy/Immunologic: Skin rash, bleeding tendency. Please see my HPI for pertinent positive an d negative. All other review of system reviewed and negative except as mentioned in the HPI. EMERGENCY ROOM COURSE: Patient is given Lasix 40 mg IV. PHYSICAL EXAMINATION: VITAL SIGNS: Currently, blood pressure 127/107, pulse was 79, respiratory rate 18, temperature 98.5, saturation 92% on 2 liter oxygen. Weight 83 kilograms. GENERAL: The patient is currently alert, awake, no obvious acute distress. HEENT: Head: Normocephalic, atraumatic. Eyes: Pupils round, reactive to light. Extraocular muscl e intact. ENT: Oropharynx within normal limits. Moist mucous membranes, no oral lesion, no pharyng eal erythema, no exudate. NECK: Elevated JVD, no thyromegaly, no carotid bruit. LUNGS: Bibasilar rales noted. No wheezing, no rhonchi. CARDIAC: S1 and S2 regular, soft systolic murmur noted, no gallop, no rub. ABDOMEN: Soft, bowel sounds present, nontender, nondistended. No organomegaly, no mass, no suprapub ic tenderness. GENITALIA: Within normal limits. Mild scrotal edema noted. EXTREMITIES: Upper extremities, passive movement of all joints are normal. Lower extremities, bilat eral lower extremity pitting edema noted. Good distal pulsation. SKIN: No skin rash. HEMATOLOGICAL SYSTEM: No lymphadenopathy. PSYCHIATRIC: Normal affect. SIGNIFICANT LABORATORY DATA: EKG showing prolonged QT interval, nonspecific ST-T changes in anterola teral leads. Chest x-ray showing cardiomegaly, pulmonary vascular congestion. CBC: WBC is 8.4, hem oglobin 12.4, platelets 176. BMP: Sodium 136, potassium 4.6, chloride 105, carbon dioxide 20, anion gap 16, BUN 18, creatinine 1.75, glucose 303, calcium 9.5. LFT: AST 13, ALT 9, alkaline phosphatas e was 94, albumin 3.9, lipase 16, CK 94, CK-MB 2.2, troponin I 0.677. BNP 3814.2. Urinalysis: Leuk ocyte esterase trace, protein plus, glucose plus. ASSESSMENT AND PLAN: 1. Acute on chronic systolic congestive heart failure exacerbation, likely due to noncompliance with medication. At this point, the patient has significantly elevated BNP. He has orthopnea, elevated jugular vein distention. Pulmonary vascular congestion on chest x-ray. The patient will require adm ission. We will treat him with Lasix 40 mg IV b.i.d. We will monitor renal function, DuoNeb therapy q.6 hourly p.r.n. We will monitor electrolytes and renal function, and we will also monitor daily w eight, input and output chart. We will also consider starting on Coreg 6.25 mg p.o. b.i.d., hydralaz ine 25 mg t.i.d., Aldactone 25 mg p.o. daily. We will also consider adding isosorbide dinitrate upon improvement with the congestion. 2. Chest pain and elevated troponin. We will check urine drug screen to rule out any cocaine abuse. Cardiology will be consulted. Echocardiography was recently done in this particular patient, so no need of repeating echocardiography at this point. Patient will be given aspirin 81 mg p.o. daily, L ipitor 40 mg p.o. at bedtime. We will also consider starting isosorbide dinitrate 20 mg p.o. t.i.d. We will monitor hemodynamics. Further decision we will defer to Cardiology. We will do serial card iac enzymes x3 to monitor the trend of troponin. 3. Diabetes, type 2. We will start Glucotrol-XL 5 mg daily, insulin as per sliding scale protocol. Diabetic diet will be given. 4. History of ventricular fibrillation with automatic implantable cardioverter defibrillator in plac e. We will continue amiodarone 200 mg p.o. daily. 5. Chronic anticoagulation. The patient has a history of severe systolic heart failure. The patien t is on chronic anticoagulation with Xarelto, which we will continue while in hospital. 6. Chronic obstructive pulmonary disease. We will continue DuoNeb therapy every 6 hourly. 7. Chronic kidney disease, stage 3. We will monitor renal function and avoid nephrotoxin agent. 8. Deep venous thrombosis prophylaxis. Patient is already on Xarelto therapy. 9. Gastrointestinal prophylaxis. Protonix 40 mg p.o. daily. 10. Code status: The patient wants to be FULL CODE. He does not want to go back to hospice again. 11. Dyslipidemia. Continue Lipitor 40 mg p.o. at bedtime and check lipid profile tomorrow morning. Disposition plan based on clinical course. We are expecting patient's stay in hospital more than 2 m idnights. Plan of care discussed with the patient in detail.
[2018-04-09] MEDS: hydrALAZINE 25 MG TAB PO SCH ×2 (15:40→22:15)
[2018-04-09] MEDS ORDERED: Rivaroxaban 15 MG TAB PO SCH (17:00)
[2018-04-09] MEDS: HumaLOG 300 UNITS/3 ML VIAL SC PRN ×2 (17:06→22:16)
[2018-04-09 17:46] LABS: Critical Call Chem Troponin I RESULT DECREASING; Troponin I 0.705 ng/mL (< 0.028)
--- NOTE | 2018-04-09 19:50 | CON ---
DATE OF CONSULT: 04/09/18 HISTORY: Patient is an unfortunate 57-year-old gentleman with a history of a severe ischemic cardiomyopathy who presents with recurrent chest pain and dyspnea. The patient was seen in 2007. He underwent a cardiac catheterization. He was found to have a severe decrease in left ventricular systolic function, estimated ejection fraction 10-15%. The left anterior descending artery had a 40% proximal stenosis and continued down the apex. The left circumflex artery had a 20% proximal stenosis. The right coronary had a 50 % stenosis and 100% distal occlusion. The patient returned in 2011 with recurrent chest pain and underwent a repeat catheterization and was found to have a severe decreased left ventricular ejection of 10-15%. LAD had a 99% mid occlusion and 70% first diagonal lesion, left circumflex artery had a 50% lesion. The right coronary artery had a 70% proximal lesion, 90% distal lesion , 70% PDA lesion and diffuse distal disease. The patient was felt to be at prohibitive risk for coronary bypass surgery. He was referred to [facility] for possible high risk surgery. The patient declined to undergo this procedure. He subsequently had placed an automatic implantable cardiac defibrillator. The patient has been admitted on multiple occasions with congestive heart failure and unstable angina. The patient unfortunately has a long history of illicit drug use which is often associated with his increasing angina. The patient also has a history of the pulmonary embolus and has been on chronic anticoagulation therapy. He presented after he ran out of his medicines approximately a week ago. The patient states he has not been using any cocaine recently. He presented to the emergency room with chest pain and dyspnea. PAST MEDICAL HISTORY: 1. Coronary artery disease. 2. Cardiomyopathy. 3. Hypertension. 4. Chronic renal insufficiency. 5. Dyslipidemia. PAST MEDICAL SURGICAL HISTORY: AICD placement. MEDICATIONS: See nursing list. ALLERGIES: None. SOCIAL HISTORY: Long history of cocaine and tobacco abuse. REVIEW OF SYSTEMS: Ten point noticeable for increasing dyspnea and weight gain. PHYSICAL EXAMINATION: GENERAL: This is an ill-appearing gentleman in mild distress. VITAL SIGNS: Blood pressure 144/90. NECK: Showed jugular venous distention to the jaw. LUNGS: His lungs have crackles in both lung rahman. HEART: Regular rate and rhythm, normal S1, S2 with no murmurs. ABDOMEN: Nondistended. EXTREMITIES: Showed trace edema. SKIN: Warm and dry. NEUROLOGIC: Nonfocal. VASCULAR: Radial pulses are 2+. LABORATORY DATA: White blood cell count 8.4, hemoglobin 12.4, hematocrit 37.6, platelets are 176. Sodium was 136, potassium 4.6, chloride 105, bicarbonate 20 , BUN 18, creatinine is 1.75. BNP is 3814. His toxicology was positive for cocaine. EKG revealed normal sinus rhythm, Q-wave suggest previous inferior infarct, ST-T wave abnormality suggestive of ischemia. His troponin was 0.712. IMPRESSION: 1. Non-Q-wave myocardial infarction. 2. Severe ischemic cardiomyopathy. 3. Inoperable three-vessel coronary artery disease. 4. Hypertension. 5. Dyslipidemia. 6. History of pulmonary embolus. 7. History of AICD placement. 8. Cocaine abuse. 9. Tobacco abuse. 10. History of atrial fibrillation. This gentleman presents with a non-Q-wave myocardial infarction. The patient will be restarted on medications that he is no longer taking. The patient's prognosis is extremely guarded. We will follow this patient with you through his hospitalization. MINH
[2018-04-09] MEDS: Atorvastatin Calcium 40 MG TAB PO SCH (22:15)
[2018-04-09] MEDS: Carvedilol 6.25 MG TAB PO SCH (22:16)
[2018-04-09] MEDS: Isosorbide Dinitrate 20 MG TAB PO SCH (22:16)
[2018-04-10 05:27] LABS: #Eosinphils 0.1 thou/uL (0.0-0.7); #Lymphocytes 1.6 thou/uL (1.20-3.40); #Monocytes 0.4 thou/uL (0.11-0.59); %Basophils 0.4 % (0.0-1.0); %Eosinophils 2.1 % (0.0-10.0); %Lymphocytes 22.3 % (21.0-51.0); %Monocytes 5.1 % (0.0-10.0); %Neutrophils 70.1 % (42.0-75.0); Hemoglobin 11.5 g/dL (14.0-18.0); Mean Corpuscular HGB CONC 32.4 g/dL (32.0-36.0); Mean Corpuscular Hemoglobin 29.5 pg (27.0-31.0); Mean Corpuscular Volume 91.2 fl (80.0-94.0); Mean Platelet Volume 9.6 fL (7.4-10.4); Platelet Count 170 thou/uL (130-400); RBC Distribution Width 14.1 % (11.5-14.5); White Blood Cell (WBC) Count 7.1 thou/uL (4.8-10.8)
[2018-04-10 05:30] LABS: ALT (SGPT) 7 U/L (8-55); AST (SGOT) 12 U/L (5-34); Albumin 3.3 g/dL (3.5-5.0); Alkaline Phosphatase 86 U/L (40-150); Anion Gap 11 mmol/L (10-20); BUN (Urea Nitrogen) 25 mg/dL (8.4-25.7); Bilirubin, Total 1.4 mg/dL (0.2-1.2); Calc. Creatinine Clearance 53 mL/min (70-130); Carbon Dioxide 26 mmol/L (22-29); Cardiac Risk 5.6 (Less than 4.5); Chloride 105 mmol/L (98-107); Cholesterol 180 mg/dl (< 200 Desired); Estimated GFR-MDRD 52; Globulin 3.6 g/dL (2.4-3.5); Glucose 229 mg/dL (70-105); HDL Cholesterol 32 mg/dL (>60 Neg Risk); LDL Cholesterol, Calculated 129 mg/dL; Magnesium 1.8 mg/dL (1.6-2.6); Potassium 3.9 mmol/L (3.5-5.1); Protein, Total 6.9 g/dL (6.0-8.3); Sodium 138 mmol/L (136-145); Triglycerides 95 mg/dL (Less than 150); Uric Acid 6.7 mg/dL (3.5-7.2)
[2018-04-10] MEDS ORDERED: Furosemide 40 MG/4 ML VIAL SLOW IVP SCH ×2 (06:00→07:25)
[2018-04-10] MEDS ORDERED: Furosemide 100 MG/10 ML VIAL SLOW IVP SCH (07:30)
[2018-04-10] MEDS: HumaLOG 300 UNITS/3 ML VIAL SC PRN ×2 (08:59→11:23)
[2018-04-10] MEDS: Amiodarone 200 MG TAB PO SCH (09:00)
[2018-04-10] MEDS: Isosorbide Dinitrate 20 MG TAB PO SCH ×3 (09:00→20:26)
[2018-04-10] MEDS: Carvedilol 6.25 MG TAB PO SCH ×2 (09:00→20:27)
[2018-04-10] MEDS ORDERED: Enoxaparin Sodium 40 MG/0.4 ML SYRINGE SC SCH (09:00)
[2018-04-10] MEDS: hydrALAZINE 25 MG TAB PO SCH ×3 (09:01→20:26)
[2018-04-10] MEDS: Spironolactone 25 MG TAB PO SCH (09:01)
[2018-04-10] MEDS: Aspirin 81 mg Enteric Coated Tablet PO SCH (09:01)
--- NOTE | 2018-04-10 09:18 | PDOC.PN ---
- Subjective Encounter Start Date: 04/10/18 Encounter Start Time: 07:40 -: old records requested/rev Patient seen and examined for CHF exacerbation, feels better. No new complaints. No overnight events - Objective Resuscitation Status: Resuscitation Status FULL:Full Resuscitation MAR Reviewed: Yes Vital Signs & Weight: Vital Signs (12 hours) Temp Pulse Resp BP BP Pulse Ox 04/10/18 09:01 75 04/10/18 09:00 143/78 H 04/10/18 07:15 97.9 F 75 18 143/83 H 94 L 04/10/18 07:06 97 04/10/18 07:02 69 16 04/10/18 03:06 92 L 04/10/18 00:24 77 16 04/10/18 00:00 98.3 F 66 17 124/76 95 04/09/18 22:16 143/78 H 04/09/18 22:15 76 143/78 H Weight Weight 169 lb I&O: 04/09/18 04/10/18 04/11/18 06:59 06:59 06:59 Intake Total 780 Output Total 735 Balance 45 Result Diagrams: 04/10/18 04:29 04/10/18 04:29 Additional Labs: Accuchecks 04/10/18 04/09/18 04/09/18 05:59 20:57 16:33 POC Glucose 227 H 267 H 278 H EKG Reviewed by me: Yes (nsr) Phys Exam - Physical Examination Constitutional: NAD HEENT: PERRLA, moist MMs, sclera anicteric Neck: no nodes, supple high JVD Respiratory: no wheezing, no rhonchi basal rales Cardiovascular: RRR, no significant murmur, no rub Gastrointestinal: soft, non-tender, no distention, positive bowel sounds Musculoskeletal: pulses present, edema present Neurological: non-focal, normal sensation, moves all 4 limbs Lymphatic: no nodes Psychiatric: normal affect, A&O x 3 Skin: no rash, normal turgor Dx/Plan (1) Acute on chronic systolic ACC/AHA stage C congestive heart failure Code(s): I50.23 - ACUTE ON CHRONIC SYSTOLIC (CONGESTIVE) HEART FAILURE Status : Acute (2) Chest pain Code(s): R07.9 - CHEST PAIN, UNSPECIFIED Status: Acute (3) Demand ischemia of myocardium Code(s): I24.8 - OTHER FORMS OF ACUTE ISCHEMIC HEART DISEASE Status: Acute (4) CAD (coronary artery disease) Code(s): I25.10 - ATHSCL HEART DISEASE OF [place] CORONARY ARTERY W/O ANG PCTRS Status: Chronic Qualifiers: (5) CKD (chronic kidney disease) stage 3, GFR 30-59 ml/min Status: Chronic (6) COPD (chronic obstructive pulmonary disease) Status: Chronic (7) Cocaine abuse Code(s): F14.10 - COCAINE ABUSE, UNCOMPLICATED Status: Chronic (8) DM type 2 (diabetes mellitus, type 2) Status: Chronic Qualifiers: (9) Noncompliance with medication regimen Code(s): Z91.14 - PATIENT'S OTHER NONCOMPLIANCE WITH MEDICATION REGIMEN Status : Chronic (10) History of pulmonary embolism Code(s): Z86.711 - PERSONAL HISTORY OF PULMONARY EMBOLISM Status: Chronic - Plan cont current plan of care * currently chest pain free * counselled to avoid smoking and abusing drugs * medication reviewed as below * symptomatic treatment * continue lasix * will adjust medication * cardiology recommendation noted * pt does not want to take xarelto or equivalent as that makes gum bleeding, he understands risks. Review of Systems - Review of Systems Constitutional: negative: fever, chills, sweats, weakness, malaise, other Eyes: negative: Pain, Vision Change, Conjunctivae Inflammation, Eyelid Inflammation, Redness, Other ENT: negative: Ear Pain, Ear Discharge, Nose Pain, Nose Discharge, Nose Congestion, Mouth Pain, Mouth Swelling, Throat Pain, Throat Swelling, Other Respiratory: Shortness of Breath, SOB with Excertion. negative: Cough, Dry, Hemoptysis, Pleuritic Pain, Sputum, Wheezing Cardiovascular: edema. negative: chest pain, palpitations, orthopnea, paroxysmal nocturnal dyspnea, light headedness, other Gastrointestinal: negative: Nausea, Vomiting, Abdominal Pain, Diarrhea, Constipation, Melena, Hematochezia, Other Genitourinary: negative: Dysuria, Frequency, Incontinence, Hematuria, Retention , Other Musculoskeletal: negative: Neck Pain, Shoulder Pain, Arm Pain, Back Pain, Hand Pain, Leg Pain, Foot Pain, Other Skin: negative: Rash, Lesions, Jesus, Bruising, Other Neurological: negative: Weakness, Numbness, Incoordination, Change in Speech, Confusion, Seizures, Other - Medications/Allergies Allergies/Adverse Reactions: Allergies Allergy/AdvReac Type Severity Reaction Status Date / Time No Known Allergies Allergy Verified 11/21/17 21:24 Medications: Current Medications Acetaminophen (Tylenol) 650 mg PO Q4H PRN PRN Reason: Headache/Fever or Pain Hydrocodone Bitart/Acetaminophen ([place] 5/325) 1 tab PO Q4H PRN PRN Reason: Moderate Pain (4-6) Al Hydroxide/Mg Hydroxide (Maalox) 30 ml PO Q6H PRN PRN Reason: Heartburn or Indigestion Albuterol Sulfate (Proventil Hfa) 2 puff INH Q6H PRN PRN Reason: SOB &/or Wheezing Albuterol/Ipratropium (Duoneb) 3 ml NEB C4FR-LB [facility] Last Admin: 04/10/18 07:02 Dose: 3 ml Amiodarone HCl (Cordarone) 200 mg PO DAILY [facility] Last Admin: 04/10/18 09:00 Dose: 200 mg Artificial Tears (Tears Renewed 15ml Bottle) 0 drop EA EYE PRN PRN PRN Reason: Dry Eyes Aspirin (Ecotrin) 81 mg PO DAILY [facility] Last Admin: 04/10/18 09:01 Dose: 81 mg Atorvastatin Calcium (Lipitor) 40 mg PO HS [facility] Last Admin: 04/09/18 22:15 Dose: 40 mg Carvedilol (Coreg) 6.25 mg PO BID [facility] Last Admin: 04/10/18 09:00 Dose: 6.25 mg Dextrose/Water (Dextrose 50%) 25 gm SLOW IVP PRN PRN PRN Reason: Hypoglycemia Furosemide (Lasix) 80 mg SLOW IVP 0600,1400 [facility] Glipizide (Glucotrol Xl) 5 mg PO QAM-WM [facility] Last Admin: 04/10/18 09:01 Dose: 5 mg Glucagon (Glucagon) 1 mg IM PRN PRN PRN Reason: Hypoglycemia Guaifenesin (Robitussin Sf) 200 mg PO Q4H PRN PRN Reason: Cough Hydralazine HCl (Apresoline) 10 mg SLOW IVP Q4H PRN PRN Reason: Systolic BP > 180 Hydralazine HCl (Apresoline) 25 mg PO TID [facility] Last Admin: 04/10/18 09:01 Dose: 25 mg Dextrose/Water (D5w) 1,000 mls @ 0 mls/hr IV .Q0M PRN; As Directed PRN Reason: Hypoglycemia Insulin Human Lispro (Humalog) 0 units SC .MODERATE SLIDING SC PRN PRN Reason: Moderate [place] Scale Last Admin: 04/10/18 08:59 Dose: 4 unit Insulin Human Lispro (Humalog) 0 units SC .BEDTIME SLIDING SC PRN PRN Reason: Bedtime Correctional Scale Isosorbide Dinitrate (Isordil) 20 mg PO TID [facility] Last Admin: 04/10/18 09:00 Dose: 20 mg Loperamide HCl (Imodium) 2 mg PO PRN PRN PRN Reason: Diarrhea/Loose Stools Loratadine (Claritin) 10 mg PO DAILYPRN PRN PRN Reason: Sinus Symptoms Magnesium Hydroxide (Milk Of Magnesium) 30 ml PO DAILYPRN PRN PRN Reason: Constipation Mineral Oil/White Petrolatum (Eucerin Cream) 0 gm TOP BIDPRN PRN PRN Reason: Dry Skin Nitroglycerin (Nitrostat) 0.4 mg SL Q5MIN PRN PRN Reason: Chest Pain Ondansetron HCl (Zofran Odt) 4 mg PO Q6H PRN PRN Reason: Nausea/Vomiting Ondansetron HCl (Zofran) 4 mg IVP Q6H PRN PRN Reason: Nausea/Vomiting Pantoprazole Sodium (Protonix) 40 mg PO DAILY [facility] Last Admin: 04/10/18 09:00 Dose: 40 mg Phenol (Chloraseptic [place] 180 Ml Bot) 0 ml PO PRN PRN PRN Reason: Sore Throat Potassium Chloride (Klor-Con) 20 meq PO DAILY [facility] Last Admin: 04/10/18 09:01 Dose: 20 meq Senna (Senokot) 2 tab PO HSPRN PRN PRN Reason: Constipation Sodium Chloride ([place] Nasal [place] 0.65%) 0 ml EA NARE QIDPRN PRN PRN Reason: Nasal Congestion Sodium Chloride (Flush - Normal Saline) 10 ml IVF Q12HR [facility] Last Admin: 04/10/18 08:58 Dose: 10 ml Sodium Chloride (Flush - Normal Saline) 10 ml IVF PRN PRN PRN Reason: Saline Flush Spironolactone (Aldactone) 25 mg PO QAM-WM [facility] Last Admin: 04/10/18 09:01 Dose: 25 mg Zolpidem Tartrate (Ambien) 5 mg PO HSPRN PRN PRN Reason: Insomnia
[2018-04-10] MEDS: Furosemide 100 MG/10 ML VIAL SLOW IVP SCH (14:23)
[2018-04-10] MEDS: Atorvastatin Calcium 40 MG TAB PO SCH (20:26)
[2018-04-11 05:26] LABS: Anion Gap 14 mmol/L (10-20); BUN (Urea Nitrogen) 31 mg/dL (8.4-25.7); Calc. Creatinine Clearance 40 mL/min (70-130); Calcium 8.8 mg/dL (7.8-10.44); Carbon Dioxide 25 mmol/L (22-29); Chloride 99 mmol/L (98-107); Estimated GFR-MDRD 38; Glucose 317 mg/dL (70-105); Magnesium 1.9 mg/dL (1.6-2.6); Potassium 4.3 mmol/L (3.5-5.1); Sodium 134 mmol/L (136-145)
[2018-04-11] MEDS: Furosemide 100 MG/10 ML VIAL SLOW IVP SCH (05:38)
--- NOTE | 2018-04-11 08:31 | PDOC.PN ---
- Subjective Encounter Start Date: 04/11/18 Encounter Start Time: 07:10 Patient seen and examined for CHF. No new complaints. No overnight events - Objective Resuscitation Status: Resuscitation Status FULL:Full Resuscitation MAR Reviewed: Yes Vital Signs & Weight: Vital Signs (12 hours) Temp Pulse Resp BP Pulse Ox 04/11/18 07:22 97.9 F 63 16 133/77 94 L 04/11/18 07:11 87 12 04/11/18 03:58 98.2 F 87 16 124/59 L 95 04/11/18 02:45 96 04/11/18 00:43 12 04/10/18 20:50 98.0 F 65 18 95 Weight Weight 168 lb 3 oz I&O: 04/10/18 04/11/18 04/12/18 06:59 06:59 06:59 Intake Total 780 1200 Output Total 735 5475 Balance 45 -4579 Result Diagrams: 04/10/18 04:29 04/11/18 04:39 Additional Labs: Accuchecks 04/11/18 04/10/18 04/10/18 05:46 20:52 16:35 POC Glucose 297 H 282 H 130 H 04/10/18 10:34 POC Glucose 314 H EKG Reviewed by me: Yes (nsr) Phys Exam - Physical Examination Constitutional: NAD HEENT: PERRLA, moist MMs, sclera anicteric Neck: no JVD, supple Respiratory: no wheezing, no rales, no rhonchi Cardiovascular: RRR, no significant murmur, no rub Gastrointestinal: soft, non-tender, no distention, positive bowel sounds Musculoskeletal: no edema, pulses present Neurological: non-focal, normal sensation, moves all 4 limbs Lymphatic: no nodes Psychiatric: normal affect, A&O x 3 Skin: no rash, normal turgor Dx/Plan (1) Acute on chronic systolic ACC/AHA stage C congestive heart failure Code(s): I50.23 - ACUTE ON CHRONIC SYSTOLIC (CONGESTIVE) HEART FAILURE Status : Acute (2) Chest pain Code(s): R07.9 - CHEST PAIN, UNSPECIFIED Status: Acute (3) Demand ischemia of myocardium Code(s): I24.8 - OTHER FORMS OF ACUTE ISCHEMIC HEART DISEASE Status: Acute (4) CAD (coronary artery disease) Code(s): I25.10 - ATHSCL HEART DISEASE OF [place] CORONARY ARTERY W/O ANG PCTRS Status: Chronic Qualifiers: (5) CKD (chronic kidney disease) stage 3, GFR 30-59 ml/min Status: Chronic (6) COPD (chronic obstructive pulmonary disease) Status: Chronic (7) Cocaine abuse Code(s): F14.10 - COCAINE ABUSE, UNCOMPLICATED Status: Chronic (8) DM type 2 (diabetes mellitus, type 2) Status: Chronic Qualifiers: (9) Noncompliance with medication regimen Code(s): Z91.14 - PATIENT'S OTHER NONCOMPLIANCE WITH MEDICATION REGIMEN Status : Chronic (10) History of pulmonary embolism Code(s): Z86.711 - PERSONAL HISTORY OF PULMONARY EMBOLISM Status: Chronic - Plan cont current plan of care * today creatinine is elevated, he is on high dose of lasix, will defer that to cardiology * will repeat BMP tomorrow * now he is on room air and seems like euvolemic * expecting discharge soon * pt does not want to continue any kind of anticoagulant and he accepted risk * medication reviewed as below * symptomatic treatment. Review of Systems - Review of Systems Eyes: negative: Pain, Vision Change, Conjunctivae Inflammation, Eyelid Inflammation, Redness, Other ENT: negative: Ear Pain, Ear Discharge, Nose Pain, Nose Discharge, Nose Congestion, Mouth Pain, Mouth Swelling, Throat Pain, Throat Swelling, Other Respiratory: negative: Cough, Dry, Shortness of Breath, Hemoptysis, SOB with Excertion, Pleuritic Pain, Sputum, Wheezing Cardiovascular: negative: chest pain, palpitations, orthopnea, paroxysmal nocturnal dyspnea, edema, light headedness, other Gastrointestinal: negative: Nausea, Vomiting, Abdominal Pain, Diarrhea, Constipation, Melena, Hematochezia, Other Genitourinary: negative: Dysuria, Frequency, Incontinence, Hematuria, Retention , Other Musculoskeletal: negative: Neck Pain, Shoulder Pain, Arm Pain, Back Pain, Hand Pain, Leg Pain, Foot Pain, Other Skin: negative: Rash, Lesions, Jesus, Bruising, Other - Medications/Allergies Allergies/Adverse Reactions: Allergies Allergy/AdvReac Type Severity Reaction Status Date / Time No Known Allergies Allergy Verified 11/21/17 21:24 Medications: Current Medications Acetaminophen (Tylenol) 650 mg PO Q4H PRN PRN Reason: Headache/Fever or Pain Hydrocodone Bitart/Acetaminophen ([place] 5/325) 1 tab PO Q4H PRN PRN Reason: Moderate Pain (4-6) Al Hydroxide/Mg Hydroxide (Maalox) 30 ml PO Q6H PRN PRN Reason: Heartburn or Indigestion Albuterol Sulfate (Proventil Hfa) 2 puff INH Q6H PRN PRN Reason: SOB &/or Wheezing Albuterol/Ipratropium (Duoneb) 3 ml NEB [id number] [facility] Last Admin: 04/11/18 07:11 Dose: 3 ml Amiodarone HCl (Cordarone) 200 mg PO DAILY [facility] Last Admin: 04/10/18 09:00 Dose: 200 mg Artificial Tears (Tears Renewed 15ml Bottle) 0 drop EA EYE PRN PRN PRN Reason: Dry Eyes Aspirin (Ecotrin) 81 mg PO DAILY [facility] Last Admin: 04/10/18 09:01 Dose: 81 mg Atorvastatin Calcium (Lipitor) 40 mg PO HS [facility] Last Admin: 04/10/18 20:26 Dose: 40 mg Carvedilol (Coreg) 6.25 mg PO BID [facility] Last Admin: 04/10/18 20:27 Dose: 6.25 mg Dextrose/Water (Dextrose 50%) 25 gm SLOW IVP PRN PRN PRN Reason: Hypoglycemia Furosemide (Lasix) 80 mg SLOW IVP 0600,1400 [facility] Last Admin: 04/11/18 05:38 Dose: 80 mg Glipizide (Glucotrol Xl) 5 mg PO QAM-WM [facility] Last Admin: 04/10/18 09:01 Dose: 5 mg Glucagon (Glucagon) 1 mg IM PRN PRN PRN Reason: Hypoglycemia Guaifenesin (Robitussin Sf) 200 mg PO Q4H PRN PRN Reason: Cough Hydralazine HCl (Apresoline) 10 mg SLOW IVP Q4H PRN PRN Reason: Systolic BP > 180 Hydralazine HCl (Apresoline) 25 mg PO TID [facility] Last Admin: 04/10/18 20:26 Dose: 25 mg Dextrose/Water (D5w) 1,000 mls @ 0 mls/hr IV .Q0M PRN; As Directed PRN Reason: Hypoglycemia Insulin Human Lispro (Humalog) 0 units SC .MODERATE SLIDING SC PRN PRN Reason: Moderate Correctional Scale Last Admin: 04/10/18 11:23 Dose: 8 unit Insulin Human Lispro (Humalog) 0 units SC .BEDTIME SLIDING SC PRN PRN Reason: Bedtime Correctional Scale Isosorbide Dinitrate (Isordil) 20 mg PO TID [facility] Last Admin: 04/10/18 20:26 Dose: 20 mg Loperamide HCl (Imodium) 2 mg PO PRN PRN PRN Reason: Diarrhea/Loose Stools Loratadine (Claritin) 10 mg PO DAILYPRN PRN PRN Reason: Sinus Symptoms Magnesium Hydroxide (Milk Of Magnesium) 30 ml PO DAILYPRN PRN PRN Reason: Constipation Mineral Oil/White Petrolatum (Eucerin Cream) 0 gm TOP BIDPRN PRN PRN Reason: Dry Skin Nitroglycerin (Nitrostat) 0.4 mg SL Q5MIN PRN PRN Reason: Chest Pain Ondansetron HCl (Zofran Odt) 4 mg PO Q6H PRN PRN Reason: Nausea/Vomiting Ondansetron HCl (Zofran) 4 mg IVP Q6H PRN PRN Reason: Nausea/Vomiting Pantoprazole Sodium (Protonix) 40 mg PO DAILY [facility] Last Admin: 04/10/18 09:00 Dose: 40 mg Phenol (Chloraseptic [place] 180 Ml Bot) 0 ml PO PRN PRN PRN Reason: Sore Throat Senna (Senokot) 2 tab PO HSPRN PRN PRN Reason: Constipation Sodium Chloride ([place] Nasal [place] 0.65%) 0 ml EA NARE QIDPRN PRN PRN Reason: Nasal Congestion Sodium Chloride (Flush - Normal Saline) 10 ml IVF Q12HR [facility] Last Admin: 04/10/18 20:27 Dose: 10 ml Sodium Chloride (Flush - Normal Saline) 10 ml IVF PRN PRN PRN Reason: Saline Flush Spironolactone (Aldactone) 25 mg PO QAM-WM [facility] Last Admin: 04/10/18 09:01 Dose: 25 mg Zolpidem Tartrate (Ambien) 5 mg PO HSPRN PRN PRN Reason: Insomnia
[2018-04-11] MEDS: HumaLOG 300 UNITS/3 ML VIAL SC PRN ×2 (08:47→12:07)
[2018-04-11] MEDS: Amiodarone 200 MG TAB PO SCH (08:48)
[2018-04-11] MEDS: Aspirin 81 mg Enteric Coated Tablet PO SCH (08:48)
[2018-04-11] MEDS: Carvedilol 6.25 MG TAB PO SCH ×2 (08:48→22:04)
[2018-04-11] MEDS: Spironolactone 25 MG TAB PO SCH (08:48)
[2018-04-11] MEDS: Isosorbide Dinitrate 20 MG TAB PO SCH ×3 (08:48→22:05)
[2018-04-11] MEDS: hydrALAZINE 25 MG TAB PO SCH ×3 (08:48→22:05)
[2018-04-11] MEDS: Atorvastatin Calcium 40 MG TAB PO SCH (22:04)
[2018-04-12 05:05] LABS: Anion Gap 14 mmol/L (10-20); BUN (Urea Nitrogen) 27 mg/dL (8.4-25.7); Calc. Creatinine Clearance 45 mL/min (70-130); Calcium 8.6 mg/dL (7.8-10.44); Carbon Dioxide 23 mmol/L (22-29); Chloride 100 mmol/L (98-107); Estimated GFR-MDRD 44; Glucose 326 mg/dL (70-105); Potassium 4.1 mmol/L (3.5-5.1); Sodium 133 mmol/L (136-145)
[2018-04-12] MEDS: HumaLOG 300 UNITS/3 ML VIAL SC PRN (06:10)
[2018-04-12] MEDS ORDERED: Furosemide 40 MG TAB PO SCH (07:30)
[2018-04-12] MEDS: Amiodarone 200 MG TAB PO SCH (08:26)
[2018-04-12] MEDS: Aspirin 81 mg Enteric Coated Tablet PO SCH (08:26)
[2018-04-12] MEDS: Spironolactone 25 MG TAB PO SCH (08:26)
[2018-04-12] MEDS: Carvedilol 6.25 MG TAB PO SCH (08:26)
[2018-04-12] MEDS: Isosorbide Dinitrate 20 MG TAB PO SCH (08:27)
[2018-04-12] MEDS: hydrALAZINE 25 MG TAB PO SCH (08:27)
--- NOTE | 2018-04-12 10:21 | PDOC.PN ---
- Subjective Encounter Start Date: 04/12/18 Encounter Start Time: 07:20 Patient seen and examined for chf. No new complaints. No overnight events - Objective Resuscitation Status: Resuscitation Status FULL:Full Resuscitation MAR Reviewed: Yes Vital Signs & Weight: Vital Signs (12 hours) Temp Pulse Resp BP BP Pulse Ox 04/12/18 08:04 98 04/12/18 08:03 72 12 04/12/18 07:13 97.7 F 64 22 H 115/59 L 91 L 04/12/18 04:00 98.2 F 71 20 140/81 98 04/12/18 00:50 99 04/12/18 00:17 73 12 Weight Weight 170 lb 3.2 oz I&O: 04/11/18 04/12/18 04/13/18 06:59 06:59 06:59 Intake Total 1200 1210 Output Total 5470 7875 Balance -4317 -1363 Result Diagrams: 04/10/18 04:29 04/12/18 04:34 Additional Labs: Accuchecks 04/12/18 04/11/18 04/11/18 06:08 20:26 16:36 POC Glucose 397 H 247 H 152 H 04/11/18 10:43 POC Glucose 248 H EKG Reviewed by me: Yes (nsr) Phys Exam - Physical Examination Constitutional: NAD HEENT: PERRLA, moist MMs, sclera anicteric Neck: no JVD, supple Respiratory: no wheezing, no rales, no rhonchi Cardiovascular: RRR, no significant murmur, no rub Gastrointestinal: soft, non-tender, no distention, positive bowel sounds Musculoskeletal: no edema, pulses present Neurological: non-focal, normal sensation, moves all 4 limbs Psychiatric: normal affect, A&O x 3 Skin: no rash, normal turgor Dx/Plan (1) Acute on chronic systolic ACC/AHA stage C congestive heart failure Code(s): I50.23 - ACUTE ON CHRONIC SYSTOLIC (CONGESTIVE) HEART FAILURE Status : Acute (2) Chest pain Code(s): R07.9 - CHEST PAIN, UNSPECIFIED Status: Acute (3) Demand ischemia of myocardium Code(s): I24.8 - OTHER FORMS OF ACUTE ISCHEMIC HEART DISEASE Status: Acute (4) CAD (coronary artery disease) Code(s): I25.10 - ATHSCL HEART DISEASE OF [place] CORONARY ARTERY W/O ANG PCTRS Status: Chronic Qualifiers: (5) CKD (chronic kidney disease) stage 3, GFR 30-59 ml/min Status: Chronic (6) COPD (chronic obstructive pulmonary disease) Status: Chronic (7) Cocaine abuse Code(s): F14.10 - COCAINE ABUSE, UNCOMPLICATED Status: Chronic (8) DM type 2 (diabetes mellitus, type 2) Status: Chronic Qualifiers: (9) Noncompliance with medication regimen Code(s): Z91.14 - PATIENT'S OTHER NONCOMPLIANCE WITH MEDICATION REGIMEN Status : Chronic (10) History of pulmonary embolism Code(s): Z86.711 - PERSONAL HISTORY OF PULMONARY EMBOLISM Status: Chronic - Plan cont current plan of care * medication reviewed as below * symptomatic treatment * see discharge dilan. Review of Systems - Review of Systems ENT: negative: Ear Pain, Ear Discharge, Nose Pain, Nose Discharge, Nose Congestion, Mouth Pain, Mouth Swelling, Throat Pain, Throat Swelling, Other Respiratory: negative: Cough, Dry, Shortness of Breath, Hemoptysis, SOB with Excertion, Pleuritic Pain, Sputum, Wheezing Cardiovascular: negative: chest pain, palpitations, orthopnea, paroxysmal nocturnal dyspnea, edema, light headedness, other Gastrointestinal: negative: Nausea, Vomiting, Abdominal Pain, Diarrhea, Constipation, Melena, Hematochezia, Other Genitourinary: negative: Dysuria, Frequency, Incontinence, Hematuria, Retention , Other Musculoskeletal: negative: Neck Pain, Shoulder Pain, Arm Pain, Back Pain, Hand Pain, Leg Pain, Foot Pain, Other Skin: negative: Rash, Lesions, Jesus, Bruising, Other - Medications/Allergies Allergies/Adverse Reactions: Allergies Allergy/AdvReac Type Severity Reaction Status Date / Time No Known Allergies Allergy Verified 11/21/17 21:24 Medications: Current Medications Acetaminophen (Tylenol) 650 mg PO Q4H PRN PRN Reason: Headache/Fever or Pain Hydrocodone Bitart/Acetaminophen ([place] 5/325) 1 tab PO Q4H PRN PRN Reason: Moderate Pain (4-6) Al Hydroxide/Mg Hydroxide (Maalox) 30 ml PO Q6H PRN PRN Reason: Heartburn or Indigestion Albuterol Sulfate (Proventil Hfa) 2 puff INH Q6H PRN PRN Reason: SOB &/or Wheezing Albuterol/Ipratropium (Duoneb) 3 ml NEB Q1IP-CF [facility] Last Admin: 04/12/18 08:03 Dose: 3 ml Amiodarone HCl (Cordarone) 200 mg PO DAILY [facility] Last Admin: 04/12/18 08:26 Dose: 200 mg Artificial Tears (Tears Renewed 15ml Bottle) 0 drop EA EYE PRN PRN PRN Reason: Dry Eyes Aspirin (Ecotrin) 81 mg PO DAILY [facility] Last Admin: 04/12/18 08:26 Dose: 81 mg Atorvastatin Calcium (Lipitor) 40 mg PO HS [facility] Last Admin: 04/11/18 22:04 Dose: 40 mg Carvedilol (Coreg) 6.25 mg PO BID [facility] Last Admin: 04/12/18 08:26 Dose: 6.25 mg Dextrose/Water (Dextrose 50%) 25 gm SLOW IVP PRN PRN PRN Reason: Hypoglycemia Furosemide (Lasix) 40 mg PO DAILY-AC [facility] Last Admin: 04/12/18 07:22 Dose: 40 mg Glipizide (Glucotrol Xl) 5 mg PO QAM-WM [facility] Last Admin: 04/12/18 08:26 Dose: 5 mg Glucagon (Glucagon) 1 mg IM PRN PRN PRN Reason: Hypoglycemia Guaifenesin (Robitussin Sf) 200 mg PO Q4H PRN PRN Reason: Cough Hydralazine HCl (Apresoline) 10 mg SLOW IVP Q4H PRN PRN Reason: Systolic BP > 180 Hydralazine HCl (Apresoline) 25 mg PO TID [facility] Last Admin: 04/12/18 08:27 Dose: 25 mg Dextrose/Water (D5w) 1,000 mls @ 0 mls/hr IV .Q0M PRN; As Directed PRN Reason: Hypoglycemia Insulin Human Lispro (Humalog) 0 units SC .MODERATE SLIDING SC PRN PRN Reason: Moderate Correctional Scale Last Admin: 04/12/18 06:10 Dose: 10 unit Insulin Human Lispro (Humalog) 0 units SC .BEDTIME SLIDING SC PRN PRN Reason: Bedtime Correctional Scale Isosorbide Dinitrate (Isordil) 20 mg PO TID [facility] Last Admin: 04/12/18 08:27 Dose: 20 mg Loperamide HCl (Imodium) 2 mg PO PRN PRN PRN Reason: Diarrhea/Loose Stools Loratadine (Claritin) 10 mg PO DAILYPRN PRN PRN Reason: Sinus Symptoms Magnesium Hydroxide (Milk Of Magnesium) 30 ml PO DAILYPRN PRN PRN Reason: Constipation Mineral Oil/White Petrolatum (Eucerin Cream) 0 gm TOP BIDPRN PRN PRN Reason: Dry Skin Nitroglycerin (Nitrostat) 0.4 mg SL Q5MIN PRN PRN Reason: Chest Pain Ondansetron HCl (Zofran Odt) 4 mg PO Q6H PRN PRN Reason: Nausea/Vomiting Ondansetron HCl (Zofran) 4 mg IVP Q6H PRN PRN Reason: Nausea/Vomiting Pantoprazole Sodium (Protonix) 40 mg PO DAILY [facility] Last Admin: 04/12/18 08:27 Dose: 40 mg Phenol (Chloraseptic [place] 180 Ml Bot) 0 ml PO PRN PRN PRN Reason: Sore Throat Senna (Senokot) 2 tab PO HSPRN PRN PRN Reason: Constipation Sodium Chloride ([place] Nasal [place] 0.65%) 0 ml EA NARE QIDPRN PRN PRN Reason: Nasal Congestion Sodium Chloride (Flush - Normal Saline) 10 ml IVF Q12HR [facility] Last Admin: 04/12/18 08:27 Dose: 10 ml Sodium Chloride (Flush - Normal Saline) 10 ml IVF PRN PRN PRN Reason: Saline Flush Spironolactone (Aldactone) 25 mg PO QAM-[facility] Last Admin: 04/12/18 08:26 Dose: 25 mg Zolpidem Tartrate (Ambien) 5 mg PO HSPRN PRN PRN Reason: Insomnia
--- NOTE | 2018-04-12 10:29 | DIS ---
DATE OF ADMISSION: 04/09/2018 DATE OF DISCHARGE: 04/12/2018 PRIMARY CARE PHYSICIAN: [facility] DISCHARGE DISPOSITION: Home. PRIMARY DISCHARGE DIAGNOSES: 1. Acute on chronic systolic congestive heart failure, stage C. 2. Chest pain due to cocaine. 3. Demand ischemia of myocardium due to cocaine. 4. Cocaine abuse. 5. Noncompliance with medication. SECONDARY DISCHARGE DIAGNOSES: History of pulmonary embolism, diabetes type 2, chronic obstructive p ulmonary disease, cocaine abuse, chronic kidney disease stage 3, coronary artery disease, and chronic systolic heart failure. PRIMARY PROCEDURES/OPERATIONS: None. RADIOLOGICAL INVESTIGATION: Chest x-ray showed pulmonary vascular congestion, cardiomegaly. SIGNIFICANT LABORATORY DATA: WBC 7.1, hemoglobin 11.5, platelet 170. Sodium 133, potassium 4.1, BUN 27, creatinine 1.91, calcium 8.6, troponin 0.705. BNP 3814, albumin 3.3. Liver enzymes normal. LD L 129. Urinalysis unremarkable. Urine drug screen positive for cocaine. DISCHARGE MEDICATIONS: Eliquis 5 mg p.o. b.i.d., Proventil HFA 2 puffs q.6 hourly p.r.n., amiodarone 200 mg p.o. daily, aspirin 81 mg p.o. daily, Lipitor 40 mg p.o. at bedtime, Coreg 6.25 mg p.o. b.i.d ., Lasix 40 mg p.o. daily, glipizide 5 mg p.o. b.i.d., hydralazine 25 mg p.o. t.i.d., Isordil 20 mg p .o. t.i.d., and Aldactone 25 mg p.o. daily. CONTRAINDICATIONS: None. INPATIENT CONSULTANTS: Dr. Baig was consulted while in hospital. CODE STATUS: The patient is FULL CODE. TEST RESULTS PENDING ON DISCHARGE: None. ALLERGIES: No known drug allergy. DISCHARGE PLAN: Post hospital, the patient is instructed to follow up with Dr. Baig as well as a primary care physician and [facility] Failure Clinic as instructed. HOSPITAL COURSE: A 57-year-old male who has history of congestive heart failure and he had several a dmissions in the past because of that. He has also chronic cocaine abuse. He is a noncompliant helene ent. He was in the hospice care, but he was not getting any medication for his heart failure and sub sequently he was experiencing increasing shortness of breath and that is why he came to hospital. He was diagnosed with worsening of systolic heart failure. He was treated with Lasix. With the Lasix his creatinine started going up and at that point, we reduced Lasix to p.o. By the time of discharge , the patient was euvolemic and he was able to lie down flat without any shortness of breath. He had chest pain which we suspected from vasospasm from cocaine and he had elevated troponin. We provided counseling while in hospital about avoidance of illicit drugs as well as smoking. Healthy lifestyle measures discussed with the patient. Heart failure education given, fluid restriction and dietary e ducation is given. During this admission, his blood sugar also was not well controlled and that is w hy increased the glipizide to 5 mg p.o. b.i.d. Rest of medication was continued as per previous. Al l new medication prescriptions given to him on discharge. The patient is seen and examined at bedside today. Plan of care discussed with the patient. Dischar ge medication discussed with him as well as dietary and fluid restriction discussed with him as well. The patient is given education to be compliant with medication treatment. This patient is at high risk for readmission because of his noncompliance status.
--- NOTE | 2018-04-12 11:05 | PQF ---
ARCELIA ARMANDO, COURTNEY MICHELE MD [id number] [facility]286 [id number] CLINICAL DOCUMENTATION IMPROVEMENT CLARIFICATION FORM: ICD-10 Updated PLEASE DO AN ADDENDUM TO THE PROGRESS NOTE WITH ANY DOCUMENTATION UPDATES OR ADDITIONS AND CARRY THROUGH TO DC SUMMARY. THANK YOU. DATE: 04-12-18 ATTN: DR. REYNOLDS Please exercise your independent, professional judgment in responding to the clarification form. Clinical indicators are provided on the bottom of this form for your review Please check appropriate box(s): [ ] NON-Q-WAVE NE [ ] AMI Type II [ X ] DEMAND ISCHEMIA [ ] Other diagnosis [ ] Unable to determine CLINICAL INDICATORS - SIGNS / SYMPTOMS / LABS CARDIO CONSULT: NON-Q-WAVE NE DC SUMMARY: DEMAND ISCHEMIA OF MYOCARDIUM D/T COCAINE LABS: TROPONIN I 6-8 @1110 0.677 6-8 @ 1442 0.712 6-8 @ 1712 0.705 RISKS: H&P: EF 10-15% COPD ACUTE ON CHRONIC SYSTOLIC CHF HX COCAINE ABUSE TREATMENTS: CARDIO CONSULT: NON-Q-WAVE NE DRUG SCREEN - COCAINE DETECTED MAR: IV LASIX; COREG; ECOTRIN; THANK YOU, STARLA (This form is maintained as a part of the permanent medical record) 2014 [employer]. All Rights Reserved Starla Anderson RN, BS [email or web address] [facility]
[2018-04-12 12:21] VITALS: BP 124/69; TEMP 97.8
== END 2018-04-12 12:51 | disposition home or self-care (01) | DRG 291 ==
LOC: EDUNIT# 11:00 → ERS 11:00 → 2SW 12:40 → OBSVTOIN 14:49 → 2NO 17:23
PROVIDERS: ADMIT Internal Medicine; ATTEND Internal Medicine
DX: I13.0 Hypertensive heart and chronic kidney disease with heart failure and stage 1 through stage 4 chronic kidney disease, or unspecified chronic kidney disease (principal); I50.23 Acute on chronic systolic (congestive) heart failure; I24.8 Other forms of acute ischemic heart disease; F14.188 Cocaine abuse with other cocaine-induced disorder; J44.9 Chronic obstructive pulmonary disease, unspecified; I25.5 Ischemic cardiomyopathy; I25.10 Atherosclerotic heart disease of native coronary artery without angina pectoris; E11.22 Type 2 diabetes mellitus with diabetic chronic kidney disease; N18.3 Chronic kidney disease, stage 3 (moderate); E78.5 Hyperlipidemia, unspecified; F17.210 Nicotine dependence, cigarettes, uncomplicated; Z95.810 Presence of automatic (implantable) cardiac defibrillator; Z95.5 Presence of coronary angioplasty implant and graft; Z91.14 Patient's other noncompliance with medication regimen; Z79.01 Long term (current) use of anticoagulants; Z79.84 Long term (current) use of oral hypoglycemic drugs; Z79.82 Long term (current) use of aspirin; Z86.711 Personal history of pulmonary embolism
CPT/HCPCS: 36415; 36416; 71045; 80048; 80053; 80061; 80306; 81003; 81015; 82553; 83690; 83735; 83880; 84484; 84550; 85025; 93005; 94640; 96374; A4216; J1940; J7620

== ENCOUNTER 2018-06-20 17:48 | Observation (INO) | payer MEDICARE ==
[~2018-06-20 17:48] MED LIST: ISOVUE-370 76%-LOCM 1 ML ONE
[2018-06-20 18:13] LABS: #Basophils 0.1 thou/uL (0.0-0.2); #Eosinphils 0.1 thou/uL (0.0-0.7); #Lymphocytes 1.8 thou/uL (1.20-3.40); #Monocytes 0.6 thou/uL (0.11-0.59); #Neutrophils 3.9 thou/uL (1.40-6.50); %Basophils 0.8 % (0.0-1.0); %Lymphocytes 28.1 % (21.0-51.0); %Monocytes 8.7 % (0.0-10.0); %Neutrophils 60.3 % (42.0-75.0); Hemoglobin 11.3 g/dL (14.0-18.0); Mean Corpuscular HGB CONC 32.5 g/dL (32.0-36.0); Mean Corpuscular Hemoglobin 30.5 pg (27.0-31.0); Mean Corpuscular Volume 93.8 fL (78.0-98.0); Mean Platelet Volume 9.2 fL (7.4-10.4); Platelet Count 150 thou/uL (130-400); RBC Distribution Width 15.2 % (11.5-14.5); Red Blood Cell (RBC) Count 3.71 mill/uL (4.70-6.10); White Blood Cell (WBC) Count 6.5 thou/uL (4.8-10.8)
[2018-06-20 18:38] LABS: ALT (SGPT) 15 U/L (8-55); AST (SGOT) 17 U/L (5-34); Albumin 3.4 g/dL (3.5-5.0); Alkaline Phosphatase 75 U/L (40-150); Anion Gap 15 mmol/L (10-20); BUN (Urea Nitrogen) 22 mg/dL (8.4-25.7); Bilirubin, Total 1.6 mg/dL (0.2-1.2); CK (CPK) 102 U/L (30-200); Calc. Creatinine Clearance 0 mL/min (70-130); Calcium 8.7 mg/dL (7.8-10.44); Carbon Dioxide 18 mmol/L (22-29); Chloride 110 mmol/L (98-107); Estimated GFR-MDRD 61; Globulin 3.2 g/dL (2.4-3.5); Glucose 135 mg/dL (70-105); Potassium 3.7 mmol/L (3.5-5.1); Protein, Total 6.6 g/dL (6.0-8.3); Sodium 139 mmol/L (136-145)
[2018-06-20 18:39] LABS: CKMB 1.9 ng/mL (0-6.6); Troponin I 0.029 ng/mL (< 0.028)
--- NOTE | 2018-06-20 19:10 | RAD ---
CHEST ONE VIEW: History: Dyspnea. Edema. Comparison: 11-21-17 FINDINGS: Cardiac silhouette is magnified and enlarged. Pulmonary vasculature are engorged with reticular nodul ar interstitial prominence. Mediastinum is midline with a single lead left subclavian cardiac electro arsalan device. No lobar consolidation or evidence of pneumothorax. IMPRESSION: Cardiomegaly. Pulmonary vascular congestion. Clinical correlation regarding other signs and symptoms of borderline CHF is required. POS: CATHERINE
[2018-06-20 19:30] LABS: Bilirubin Small (Negative); Blood, Urine Negative (Negative); Clarity CLEAR (Clear); Glucose, Urine (Dipstick) Negative (Negative); Leukocyte Negative (Negative); Nitrite Negative (Negative); Protein, Urine (Dipstick) 100 mg/dL (Neg-Trace); Specific Gravity, Urine 1.014 (1.002-1.036)
[2018-06-20 19:32] LABS: Bacteria/HPF None Seen HPF (None Seen); Hyaline Casts/LPF 0-3 HYALINE CAST LPF (0-3 Hyaline); RBC/HPF 0-3 HPF (0-3); Squamous Epithelial 0-3 HPF (0-3); WBC/HPF 0-3 HPF (0-3)
[2018-06-20] MEDS ORDERED: Furosemide 40 MG/4 ML VIAL ONE (19:47)
[2018-06-20] MEDS ORDERED: Acetaminophen 325 MG TAB PO PRN (20:54)
[2018-06-20] MEDS ORDERED: Ondansetron HCl/PF 4 MG/2 ML Vial IVP PRN (20:54)
[2018-06-20] MEDS ORDERED: Atorvastatin Calcium 40 MG TAB PO SCH (21:00)
--- NOTE | 2018-06-20 21:11 | CT ---
CT ARTERIOGRAM CHEST WITH IV CONTRAST AND 3D MIP IMAGING: History: Chest pain. Comparison: 11-21-17 FINDINGS: There is good contrast opacification of the pulmonary arteries and thoracic aorta with normal branchi ng of the great vessels. Mild atelectasis at the lung bases. Minimal right pleural fluid. Heart is en larged. Pulmonary vasculature is somewhat engorged. Peripheral emphysematous changes. IMPRESSION: 1. No CT evidence of pulmonary embolus. 2. Small amount of bilateral pleural fluid favored to be related to pulmonary vascular congestion. 3. Atherosclerosis. POS: CATHERINE
[2018-06-20] MEDS: Apixaban 5 MG TAB PO SCH (22:05)
[2018-06-20] MEDS: Isosorbide Dinitrate 20 MG TAB PO SCH (22:06)
[2018-06-20] MEDS: hydrALAZINE 25 MG TAB PO SCH (22:06)
[2018-06-20] MEDS: Carvedilol 6.25 MG TAB PO SCH (22:06)
[2018-06-20 22:20] VITALS: BMI 27.2
[2018-06-21 00:26] LABS: Troponin I 0.035 ng/mL (< 0.028)
[2018-06-21] MEDS ORDERED: Dextrose 5% in Water 1,000 ML IV PRN (03:34)
[2018-06-21] MEDS ORDERED: Dextrose 50% Abboject 50 ML SYRINGE SLOW IVP PRN (03:34)
[2018-06-21] MEDS ORDERED: HumaLOG 300 UNITS/3 ML VIAL SC PRN (03:34)
--- NOTE | 2018-06-21 05:43 | HP ---
PRIMARY CARE PHYSICIAN: MASSIMO Cunningham CODE STATUS: FULL CODE. TIME OF EVALUATION: 8.45 p.m. CHIEF COMPLAINT: Worsening shortness of breath. HISTORY OF PRESENT ILLNESS: This is a 57 years old male patient with past medical history of diabete s, ventricular fibrillation, status post AICD placement, CHF, hypertension, hypercholesterolemia. Th e patient came to the hospital after having severe gradually worsening shortness of breath, these sym ptoms have been present for past 2-3 days. The patient reported that he had run out of medication th at was the reason of the symptoms. REVIEW OF SYSTEMS: Constitutional: No fever or chills, generalized weakness. Respiratory: The pat ient had cough, sputum production, shortness of breath. Cardiovascular: No chest pain, palpitation. The patient had shortness of breath. Gastrointestinal: No nausea, no vomiting, diarrhea, or abdom inal pain. 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 Genitourinary: No burning with uri nation. Extremities: Bilateral leg swelling. All other systems were reviewed and were negative exc ept for the findings mentioned above. PAST MEDICAL HISTORY: As mentioned in the HPI. PAST SURGICAL HISTORY: AICD and stent x4. PSYCHIATRIC HISTORY: No previous psychiatric history. SOCIAL HISTORY: No alcohol, no drugs. No smoking history. KNOWN ALLERGIES: No known drug allergies. REPORTED MEDICATIONS: Please see medication reconciliation for details. PHYSICAL EXAMINATION: VITAL SIGNS: On presentation, blood pressure 144/75 with heart rate 73, respiratory rate was 40, tem perature 97.5, oxygen saturation 98 on room air. GENERAL APPEARANCE: The patient is alert and oriented, in mild distress due to shortness of breath. HEENT: Eyes: Normal conjunctiva. Dry oral mucosa. Anicteric. NECK: Bilateral JVD. RESPIRATORY: Bilateral air entry is decreased with rales bilaterally. No wheezing, symmetric expans ion. CARDIOVASCULAR: Normal rate, regular rhythm. No murmurs, no gallop. Bilateral leg edema 4+. ABDOMEN: Soft, normal bowel sounds. MUSCULOSKELETAL: Baseline range of motion and strength. No tenderness. SKIN: Warm and intact. No pallor. No rash. No redness. Peripheral pulses are present. Capillary refill seems to be intact. NEUROLOGIC: Baseline sensory. No evidence of any new focal weakness. Baseline speech. Cranial ner ves seem to be intact. PSYCHIATRIC: The patient is in a good mood, no anxiety, oriented, optimal judgement. EKG was reviewed. The patient has sinus tachycardia with left axis deviation. Ventricular rate 103 with CA 154, QRS 78, QT corrected 421. Chest x-ray was done. The patient has cardiomegaly with pulm onary vascular congestion, clinical correlation regarding all signs and symptoms of borderline CHF is required. CT chest was done. The patient had no CT evidence of pulmonary embolism, small amount of bilateral pleural fluid due to pulmonary vascular congestion. LABORATORY DATA: The patient has white count of 6.5, hemoglobin 11.3, platelet count 150. D-dimer w as negative. Chemistry: Sodium 139, potassium 3.7, carbon dioxide was 18, anion gap 15, BUN 22, cre atinine 1.43, in previous admission was higher. GFR 61. Glucose 135, calcium 8.7, total bilirubin 1 .6. LFTs were negative. Troponin initially 0.029 and the second one 0.035, beta natriuretic peptide 3437. UA was done and was negative for infection. ASSESSMENT AND PLAN: The patient will be placed in the hospital with the following medical problems. 1. Acute congestive heart failure exacerbation. The patient ran out of medication probably that is why he presented this way. Reconcile home medication. We will continue Lasix, we will adjust treatm ent accordingly. 2. Mildly elevated troponin, likely secondary to underlying congestive heart failure due to non-ST e levation myocardial infarction type 2. We will trend troponins, we will treat underlying condition. 3. Chronic kidney disease with creatinine 1.4 was worse, we will continue to monitor kidney fu nction, especially this patient . 4. Uncontrolled diabetes with blood sugar of 135, we will place the patient on sliding scale as inpa tient for optimal control. 5. Uncontrolled hypertension. Systolic blood pressure 151 on presentation. Reconcile home medicati ons, IV p.r.n. if needed for optimal control. 6. History of ventricular fibrillation, reconcile home medications. The patient has an AICD. 7. Deep venous thrombosis prophylaxis. 8. Hyperlipidemia. Reconcile home medications, adjust treatment as needed.
[2018-06-21] MEDS: Furosemide 40 MG/4 ML VIAL SLOW IVP SCH ×2 (05:54→13:57)
[2018-06-21 06:16] LABS: #Basophils 0.1 thou/uL (0.0-0.2); #Eosinphils 0.1 thou/uL (0.0-0.7); #Lymphocytes 1.3 thou/uL (1.20-3.40); #Monocytes 0.6 thou/uL (0.11-0.59); #Neutrophils 4.3 thou/uL (1.40-6.50); %Basophils 0.9 % (0.0-1.0); %Eosinophils 2.1 % (0.0-10.0); %Lymphocytes 20.6 % (21.0-51.0); %Monocytes 9.8 % (0.0-10.0); %Neutrophils 66.6 % (42.0-75.0); Hemoglobin 10.5 g/dL (14.0-18.0); Mean Corpuscular HGB CONC 32.4 g/dL (32.0-36.0); Mean Corpuscular Hemoglobin 30.5 pg (27.0-31.0); Mean Platelet Volume 9.4 fL (7.4-10.4); Platelet Count 130 thou/uL (130-400); RBC Distribution Width 14.8 % (11.5-14.5); Red Blood Cell (RBC) Count 3.44 mill/uL (4.70-6.10); White Blood Cell (WBC) Count 6.4 thou/uL (4.8-10.8)
[2018-06-21 06:33] LABS: Anion Gap 9 mmol/L (10-20); BUN (Urea Nitrogen) 19 mg/dL (8.4-25.7); Calc. Creatinine Clearance 59 mL/min (70-130); Calcium 8.3 mg/dL (7.8-10.44); Carbon Dioxide 27 mmol/L (22-29); Chloride 105 mmol/L (98-107); Estimated GFR-MDRD 55; Glucose 219 mg/dL (70-105); Potassium 3.8 mmol/L (3.5-5.1); Sodium 137 mmol/L (136-145)
[2018-06-21] MEDS ORDERED: Spironolactone 25 MG TAB PO SCH (08:00)
[2018-06-21] MEDS ORDERED: Aspirin 81 mg Enteric Coated Tablet PO SCH (09:00)
[2018-06-21] MEDS ORDERED: Lisinopril 5 MG TAB PO SCH (09:00)
[2018-06-21] MEDS ORDERED: Amiodarone 200 MG TAB PO SCH (09:00)
[2018-06-21] MEDS: hydrALAZINE 25 MG TAB PO SCH ×2 (09:41→14:08)
[2018-06-21] MEDS: Apixaban 5 MG TAB PO SCH (09:41)
[2018-06-21] MEDS: Carvedilol 6.25 MG TAB PO SCH (09:41)
[2018-06-21] MEDS: Isosorbide Dinitrate 20 MG TAB PO SCH ×2 (09:42→14:07)
--- NOTE | 2018-06-21 11:23 | PDOC.PN ---
- Subjective Encounter Start Date: 06/21/18 Encounter Start Time: 11:21 Subjective: resting comfortably - Objective Resuscitation Status: Resuscitation Status FULL:Full Resuscitation MAR Reviewed: Yes Vital Signs & Weight: Vital Signs (12 hours) Temp Pulse Resp BP BP Pulse Ox 06/21/18 09:42 61 06/21/18 09:41 61 126/63 06/21/18 07:56 98.2 F 61 18 124/72 98 06/21/18 07:32 98.4 F 65 20 06/21/18 03:27 98.4 F 65 20 126/63 96 Weight Admit Weight 184 lb 6.4 oz Weight 181 lb 1.6 oz I&O: 06/20/18 06/21/18 06/22/18 06:59 06:59 06:59 Intake Total 960 360 Output Total 1950 1075 Balance -990 -715 Result Diagrams: 06/21/18 05:45 06/21/18 05:45 Additional Labs: Accuchecks 06/21/18 06/21/18 10:43 05:53 POC Glucose 172 H 207 H Phys Exam - Physical Examination Neck: no JVD Respiratory: clear to auscultation bilateral Cardiovascular: RRR, no significant murmur Gastrointestinal: soft, positive bowel sounds Musculoskeletal: no edema Dx/Plan (1) Acute on chronic systolic ACC/AHA stage C congestive heart failure Code(s): I50.23 - ACUTE ON CHRONIC SYSTOLIC (CONGESTIVE) HEART FAILURE Status : Acute (2) CAD (coronary artery disease) Code(s): I25.10 - ATHSCL HEART DISEASE OF [place] CORONARY ARTERY W/O ANG PCTRS Status: Chronic Qualifiers: Coronary Disease-Associated Artery/Lesion type: [place] artery [place] vs. 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
[2018-06-21 12:16] LABS: Amphetamine Not Detected (NotDetected); Barbiturates Screen Not Detected (NotDetected); Benzodiazepine Screen Not Detected (NotDetected); Cocaine Metabolite Screen Detected (NotDetected); Medtox Control Line Valid? VALID (VALID); Medtox Reader # READER 4; Methadone Not Detected (NotDetected); Methamphetamine Not Detected (NotDetected); Opiate Screen Not Detected (NotDetected); Oxycodone Screen Not Detected (NotDetected); Phencyclidine (PCP) Not Detected (NotDetected); THC/Cannabinoid Screen Not Detected (NotDetected); Tricyclic Screen Not Detected (NotDetected)
[2018-06-21 16:14] VITALS: BP 116/57; TEMP 98.4
--- NOTE | 2018-06-21 18:59 | DIS ---
PRIMARY CARE PROVIDER: MASSIMO Cunningham DISCHARGE DIAGNOSES: Cardiomyopathy; chronic systolic heart failure; coronary artery disease; cocain e abuse; diabetes mellitus, type 2. DISCHARGE MEDICATIONS: Eliquis 5 mg twice a day, Cordarone 200 mg a day, Proventil HFA 2 puffs q.6 h ours p.r.n., glipizide 5 mg twice a day, Aldactone 25 mg a day, lisinopril 5 mg a day, Isordil 20 mg t.i.d., Lasix 40 mg a day, Coreg 6.25 mg twice a day, Lipitor 40 mg a day, aspirin 81 mg a day, hydra lazine 25 mg t.i.d. ALLERGIES: None. DIET: Diabetic. CODE STATUS: FULL. PENDING AT THE TIME OF DISCHARGE: Nothing. HOSPITAL COURSE: The patient admitted to the hospital through [facility] with worseni ng shortness of breath. The patient's D-dimer was negative. White count 6.5, hemoglobin 11.3. Sodi um 139, potassium 3.7, BUN 22, creatinine 1.43, blood sugar 135. Troponin 0.029, 0.035. BNP 3437. Chest x-ray, cardiomegaly with mild pulmonary vascular congestion. This morning, his chest was clear , his O2 sats are 92% to 97% on room air, blood pressure is 116/57. The patient's drug screen was po sitive for cocaine, despite his denial of taking cocaine. The patient is discharged with no consulta tions, no procedures. He is to follow up with his PCP in 1 week.
--- NOTE | 2018-06-23 16:03 | EKG ---
Test Reason : Blood Pressure : / mmHG Vent. Rate : 075 BPM Atrial Rate : 075 BPM P-R Int : 198 ms QRS Dur : 114 ms QT Int : 512 ms P-R-T Axes : 063 -22 151 degrees QTc Int : 571 ms Sinus rhythm with occasional Premature ventricular complexes Possible Left atrial enlargement Possible Inferior infarct , age undetermined Prolonged QT Abnormal ECG Confirmed by CHELSEA DAWSON, ASHOK ([id number]), newspaper photo editor SKY MACIAS ([id number]) on 06/23/2018 4:02:46 PM Referred By: Confirmed By:ASHOK TRAN MD
== END 2018-06-21 18:42 | disposition home or self-care (01) ==
LOC: ERS 17:48 → 2SW 20:51
PROVIDERS: ADMIT Hospitalist; ATTEND Hospitalist
DX: I13.0 Hypertensive heart and chronic kidney disease with heart failure and stage 1 through stage 4 chronic kidney disease, or unspecified chronic kidney disease (principal); E11.22 Type 2 diabetes mellitus with diabetic chronic kidney disease; N18.3 Chronic kidney disease, stage 3 (moderate); I50.23 Acute on chronic systolic (congestive) heart failure; I49.01 Ventricular fibrillation; E78.00 Pure hypercholesterolemia, unspecified; E11.65 Type 2 diabetes mellitus with hyperglycemia; I25.10 Atherosclerotic heart disease of native coronary artery without angina pectoris; J44.9 Chronic obstructive pulmonary disease, unspecified; F14.10 Cocaine abuse, uncomplicated; Z91.14 Patient's other noncompliance with medication regimen; Z95.5 Presence of coronary angioplasty implant and graft; Z95.810 Presence of automatic (implantable) cardiac defibrillator
CPT/HCPCS: 71045; 71275; 80048; 80053; 80306; 82550; 82553; 82962; 83880; 84484 ×2; 85025 ×2; 85379; 93005; 93798; 96374; 96376; 99285; 99406; G0378 ×2; 36415; 36416; 81003; 81015; J1940

== ENCOUNTER 2018-06-28 03:16 | Observation (INO) | payer MEDICARE ==
[2018-06-28 04:43] LABS: #Basophils 0.1 thou/uL (0.0-0.2); #Eosinphils 0.1 thou/uL (0.0-0.7); #Lymphocytes 1.9 thou/uL (1.20-3.40); #Monocytes 0.5 thou/uL (0.11-0.59); #Neutrophils 4.7 thou/uL (1.40-6.50); %Basophils 0.9 % (0.0-1.0); %Eosinophils 1.7 % (0.0-10.0); %Lymphocytes 25.8 % (21.0-51.0); %Monocytes 6.6 % (0.0-10.0); Hemoglobin 11.5 g/dL (14.0-18.0); Mean Corpuscular HGB CONC 32.5 g/dL (32.0-36.0); Mean Corpuscular Hemoglobin 30.4 pg (27.0-31.0); Mean Corpuscular Volume 93.4 fL (78.0-98.0); Mean Platelet Volume 9.2 fL (7.4-10.4); Platelet Count 148 thou/uL (130-400); Red Blood Cell (RBC) Count 3.77 mill/uL (4.70-6.10); White Blood Cell (WBC) Count 7.2 thou/uL (4.8-10.8)
[2018-06-28 05:03] LABS: ALT (SGPT) 11 U/L (8-55); AST (SGOT) 14 U/L (5-34); Albumin 3.7 g/dL (3.5-5.0); Alkaline Phosphatase 82 U/L (40-150); Anion Gap 14 mmol/L (10-20); BUN (Urea Nitrogen) 19 mg/dL (8.4-25.7); Bilirubin, Total 1.8 mg/dL (0.2-1.2); Calc. Creatinine Clearance 0 mL/min (70-130); Calcium 9.1 mg/dL (7.8-10.44); Carbon Dioxide 23 mmol/L (22-29); Chloride 107 mmol/L (98-107); Estimated GFR-MDRD 59; Globulin 3.3 g/dL (2.4-3.5); Glucose 222 mg/dL (70-105); Lipase 24 U/L (8-78); Potassium 3.9 mmol/L (3.5-5.1); Sodium 140 mmol/L (136-145)
[2018-06-28 05:06] LABS: CKMB 1.7 ng/mL (0-6.6); Troponin I 0.049 ng/mL (< 0.028)
[2018-06-28] MEDS ORDERED: Nitroglycerin 2% Ointment 1 INCH/1 GM Packet ONE (05:37)
[2018-06-28] MEDS ORDERED: Furosemide 40 MG/4 ML VIAL ONE (05:37)
[2018-06-28 07:03] LABS: Bilirubin Small (Negative); Blood, Urine Negative (Negative); Glucose, Urine (Dipstick) Negative (Negative); Leukocyte Negative (Negative); Nitrite Negative (Negative); Protein, Urine (Dipstick) 300 mg/dL (Neg-Trace); Specific Gravity, Urine 1.019 (1.002-1.036)
[2018-06-28 07:08] LABS: Bacteria/HPF None Seen HPF (None Seen); Hyaline Casts/LPF 0-3 HYALINE CAST LPF (0-3 Hyaline); RBC/HPF 0-3 HPF (0-3); Squamous Epithelial None Seen HPF (0-3); WBC/HPF 0-3 HPF (0-3)
[2018-06-28 07:10] LABS: Clarity Clear (Clear)
[2018-06-28 07:21] VITALS: BMI 27.6
[2018-06-28] MEDS ORDERED: Mag-Al 1200 mg/1200 mg/30 ML UDCUP PO PRN (08:33)
[2018-06-28] MEDS ORDERED: PROVENTIL INHALER 6.7 G (200 INHALATIONS) INH PRN (08:33)
[2018-06-28] MEDS ORDERED: hydrALAZINE 20 MG/ML VIAL SLOW IVP PRN (08:33)
[2018-06-28] MEDS ORDERED: Acetaminophen 325 MG TAB PO PRN (08:33)
[2018-06-28] MEDS ORDERED: HumaLOG 300 UNITS/3 ML VIAL SC PRN (08:33)
[2018-06-28] MEDS ORDERED: Dextrose 5% in Water 1,000 ML IV PRN (08:33)
[2018-06-28] MEDS ORDERED: Dextrose 50% Abboject 50 ML SYRINGE SLOW IVP PRN (08:33)
--- NOTE | 2018-06-28 08:59 | HP ---
PRIMARY CARE PHYSICIAN: [facility] in [place]. CHIEF COMPLAINT: Trouble breathing. HISTORY OF PRESENT ILLNESS: Mr. Irving is a pleasant 57-year-old gentleman that has a history of chron ic systolic heart failure due to cardiomyopathy. He also has a history of diabetes mellitus and hype rtension. He was recently discharged from our facility about a week ago for CHF exacerbation. He sa ys that he was having difficulty getting his medications. He says it had something to do with the [facility], although I was not really sure what he meant by this as he does not get his medicat ions there. He gets them on his own through the [facility] in [place]. He says that apparen tly no medications had been sent in. I am not sure if he means from our facility or from the [facility] in [place]. He did mention some things that apparently that he may be having trouble following up there because he has not paid the bill, but nevertheless, he has been out of his medications for the past 2 weeks and he began getting short of breath. He says that he cannot sleep unless he is pro pped up. He noticed dyspnea on exertion. He says that he has pains in his chest every day. He says his sister forced him to come to the emergency room where he was found to be in acute on chronic sys tolic heart failure and he is being placed in observation for this. REVIEW OF SYSTEMS: All systems were reviewed and are negative except for that mentioned in the histo ry of present illness. PAST MEDICAL HISTORY: Diabetes mellitus, ventricular fibrillation, chronic systolic heart failure, e jection fractions around 10-15%, hypertension, hypercholesterolemia, chronic kidney disease. PAST SURGICAL HISTORY: Has had an AICD as well as 4 stents placed. ALLERGIES: No known drug allergies. SOCIAL HISTORY: He is single. No children. He is a nonsmoker, nondrinker. CODE STATUS: He would like to be a FULL CODE. FAMILY HISTORY: He says no history of any inheritable diseases. His parents he says of old age . CURRENT MEDICATIONS: Albuterol, amiodarone 200 mg daily, Eliquis 5 mg twice a day, aspirin 81 mg dana ly, Lipitor 40 mg at bedtime, carvedilol 6.25 mg twice a day, Lasix 40 mg daily, isosorbide dinitrate 20 mg t.i.d., lisinopril 5 mg daily, spironolactone 25 mg daily, glipizide 5 mg twice a day, Apresol ine 25 mg t.i.d. PHYSICAL EXAMINATION: GENERAL: He is alert and oriented. He appears to be in no acute distress. He is sitting up eating. VITAL SIGNS: Blood pressure was 154/84, heart rate 93, respiratory rate of 24, temperature is 97.6. HEENT: Pupils are equal, round, and reactive. Extraocular muscles are intact. Sclerae are anicteri c. Throat no erythema, no exudates. NECK: No adenopathy. He does have elevated jugular venous pressure. LUNGS: He has got decreased breath sounds bilaterally as well as some coarse breath sounds. I did n ot actually appreciate any rales, no wheezing or rhonchi. CARDIOVASCULAR: Heart rate is regular. He has a grade 2/6 systolic murmur. ABDOMEN: Soft, it is nontender, nondistended. Positive for bowel sounds. No rebound or guarding. EXTREMITIES: He has got chronic venous stasis changes on the lower extremities and some hyperpigment ation. 1-2+ pitting edema. NEUROLOGIC: The exam is grossly nonfocal. LABORATORY RESULTS: Sodium 140, potassium 3.9, chloride is 107, CO2 is 23, BUN of 19, creatinine 1.4 8, glucose is 222, bilirubin is 1.8. Natriuretic peptide is elevated at 3493. White blood cell coun t 7.2, hemoglobin 11.5, hematocrit is 35.2, platelet count is 148,000. Chest x-ray again; cardiomega ly with increased pulmonary vascular markings. ASSESSMENT AND PLAN: This is a 57-year-old gentleman who is being admitted for acute on chronic syst olic heart failure exacerbation, likely as a result of medical noncompliance. He will be placed in o bservation and diuresed IV. We will monitor his electrolytes and restart him on his home medications and send his prescriptions in to the [facility]. He will be also placed on slidin g scale insulin for his diabetes mellitus and we will monitor his renal function carefully. He will not need DVT prophylaxis as he is already on Eliquis. This will be restarted and hopefully he should be able to be discharged home within about 24-48 hours.
--- NOTE | 2018-06-28 09:04 | RAD ---
PORTABLE CHEST 1 VIEW: Date: 06/28/18 Time: 0412 hours HISTORY: Dyspnea. FINDINGS: Comparison made with exam of 06/20/18. The heart is enlarged. Left-sided AICD remains in place. There is mild pulmonary vascular congestion. No lobar consolidation, pneumothoraces, or large effusions are seen. IMPRESSION: Mild CHF. POS: OFF
[2018-06-28] MEDS: Isosorbide Dinitrate 20 MG TAB PO SCH ×3 (09:27→20:53)
[2018-06-28] MEDS: hydrALAZINE 25 MG TAB PO SCH ×3 (09:27→20:51)
[2018-06-28] MEDS: glipiZIDE 5 MG TAB PO SCH ×2 (09:27→20:53)
[2018-06-28] MEDS: Apixaban 5 MG TAB PO SCH ×2 (09:27→20:53)
[2018-06-28] MEDS: Aspirin 81 mg Enteric Coated Tablet PO SCH (09:27)
[2018-06-28] MEDS: Carvedilol 6.25 MG TAB PO SCH ×2 (09:27→20:53)
[2018-06-28] MEDS: Amiodarone 200 MG TAB PO SCH (09:27)
[2018-06-28] MEDS: Lisinopril 5 MG TAB PO SCH (09:28)
[2018-06-28 11:40] LABS: Troponin I 0.064 ng/mL (< 0.028)
[2018-06-28] MEDS: HumaLOG 300 UNITS/3 ML VIAL SC PRN (12:23)
[2018-06-28] MEDS: Furosemide 40 MG/4 ML VIAL SLOW IVP SCH (12:23)
[2018-06-28] MEDS ORDERED: Atorvastatin Calcium 40 MG TAB PO SCH (21:00)
[2018-06-29 04:39] LABS: #Basophils 0.1 thou/uL (0.0-0.2); #Eosinphils 0.2 thou/uL (0.0-0.7); #Lymphocytes 1.6 thou/uL (1.20-3.40); #Monocytes 0.4 thou/uL (0.11-0.59); #Neutrophils 5.7 thou/uL (1.40-6.50); %Basophils 0.7 % (0.0-1.0); %Eosinophils 1.9 % (0.0-10.0); %Lymphocytes 20.3 % (21.0-51.0); %Neutrophils 72.1 % (42.0-75.0); Hemoglobin 11.3 g/dL (14.0-18.0); Mean Corpuscular Hemoglobin 30.4 pg (27.0-31.0); Mean Corpuscular Volume 92.2 fL (78.0-98.0); Mean Platelet Volume 9.1 fL (7.4-10.4); Platelet Count 166 thou/uL (130-400); White Blood Cell (WBC) Count 7.9 thou/uL (4.8-10.8)
[2018-06-29 04:54] LABS: Anion Gap 15 mmol/L (10-20); BUN (Urea Nitrogen) 27 mg/dL (8.4-25.7); Calc. Creatinine Clearance 62 mL/min (70-130); Carbon Dioxide 23 mmol/L (22-29); Chloride 103 mmol/L (98-107); Estimated GFR-MDRD 56; Glucose 147 mg/dL (70-105); Potassium 3.7 mmol/L (3.5-5.1); Sodium 137 mmol/L (136-145)
[2018-06-29] MEDS: Furosemide 40 MG/4 ML VIAL SLOW IVP SCH ×2 (05:48→14:20)
[2018-06-29] MEDS ORDERED: Spironolactone 25 MG TAB PO SCH (08:00)
[2018-06-29] MEDS: hydrALAZINE 25 MG TAB PO SCH ×2 (09:01→15:30)
[2018-06-29] MEDS: Apixaban 5 MG TAB PO SCH (09:02)
[2018-06-29] MEDS: Aspirin 81 mg Enteric Coated Tablet PO SCH (09:02)
[2018-06-29] MEDS: Isosorbide Dinitrate 20 MG TAB PO SCH ×2 (09:02→15:30)
[2018-06-29] MEDS: glipiZIDE 5 MG TAB PO SCH (09:02)
[2018-06-29] MEDS: Carvedilol 6.25 MG TAB PO SCH (09:02)
[2018-06-29] MEDS: Amiodarone 200 MG TAB PO SCH (09:02)
[2018-06-29] MEDS: Lisinopril 5 MG TAB PO SCH (09:02)
--- NOTE | 2018-06-29 10:33 | PDOC.PN ---
- Subjective Encounter Start Date: 06/29/18 Encounter Start Time: 10:31 Mr. Irving was seen today in follow-up of CHF exacerbation. He says he is breathing a bit better. No complaints. - Objective Resuscitation Status: Resuscitation Status FULL:Full Resuscitation MAR Reviewed: Yes Vital Signs & Weight: Vital Signs (12 hours) Temp Pulse Resp BP BP Pulse Ox 06/29/18 07:45 97.5 F L 67 16 126/74 96 06/29/18 07:01 97.5 F L 67 16 06/29/18 04:20 70 18 116/61 97 Weight Weight 186 lb 8 oz I&O: 06/28/18 06/29/18 06/30/18 06:59 06:59 06:59 Intake Total 1380 560 Output Total 2100 300 Balance -720 260 Result Diagrams: 06/29/18 04:19 06/29/18 04:19 Additional Labs: Accuchecks 06/28/18 06/28/18 06/28/18 20:02 15:19 10:40 POC Glucose 173 H 81 243 H Phys Exam - Physical Examination HEENT: PERRLA Respiratory: no wheezing + Decreased breath sounds at the bases, and some coarse breath sounds Cardiovascular: RRR, no significant murmur, no rub Gastrointestinal: soft, non-tender, no distention, positive bowel sounds Musculoskeletal: edema present 2+ pitting edema Neurological: non-focal, moves all 4 limbs Dx/Plan (1) Acute on chronic systolic ACC/AHA stage C congestive heart failure Code(s): I50.23 - ACUTE ON CHRONIC SYSTOLIC (CONGESTIVE) HEART FAILURE Status : Acute (2) CAD (coronary artery disease) Code(s): I25.10 - ATHSCL HEART DISEASE OF [place] CORONARY ARTERY W/O ANG PCTRS Status: Chronic Qualifiers: Coronary Disease-Associated Artery/Lesion type: [place] artery [place] vs. 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
[2018-06-29] MEDS: HumaLOG 300 UNITS/3 ML VIAL SC PRN (11:35)
[2018-06-29 12:11] VITALS: TEMP 97.3
[2018-06-29 15:39] VITALS: BP 124/70
--- NOTE | 2018-06-30 00:02 | DIS ---
DATE OF ADMISSION: 06/28/2018 DATE OF DISCHARGE: 06/29/2018 PRIMARY CARE: To the [facility] in [place]. DISCHARGE DISPOSITION: Home. PRIMARY DISCHARGE DIAGNOSES: Acute on chronic systolic heart failure, the patient has an ejection fr action of 10-15%; diabetes mellitus, type 2; hypertension; hypercholesterolemia; chronic kidney disea se, stage 2; and medical noncompliance. DISCHARGE MEDICATIONS: Include Aldactone 25 mg daily, lisinopril 5 mg daily, isosorbide 20 mg t.i.d. , hydralazine 25 mg t.i.d., glipizide 5 mg twice a day, Lasix 40 mg daily, Coreg 6.25 mg twice daily, Lipitor 40 mg at bedtime, aspirin 81 mg daily, Eliquis 5 mg twice a day, amiodarone 200 mg daily, an d albuterol inhaler HFA 2 puffs q.6 hours as needed. CODE STATUS: FULL CODE. ALLERGIES: No known drug allergies. HOSPITAL COURSE: Mr. Irving is a 57-year-old gentleman who has a history of chronic systolic heart teresita lure, diabetes, and hypertension. He has had multiple hospital admissions at our facility. He was a ctually recently discharged from our facility about a week ago due to an episode of acute on chronic systolic heart failure. The patient says that after discharge, he was not able to obtain his medicat ions. It was difficult to understand his explanation; however, it sounded like it may have something to do with him, not following up at the [facility] as he sounds like he may have o wed them some money. As a result, he had not been on any medications in over 2 weeks. This likely l ed to this exacerbation. He was having difficulty with breathing and increasing lower extremity tip a. His proBNP was elevated. He was placed in observation and diuresed and we will restart him on nc s usual medications, these prescriptions were sent in via e-mail to the [facility] in [facility] as he had requested. I did inform them that this is only a 1-month supply and that he will need to follow up in order to get a refill on his medications. He voiced understanding. At the time of dis charge, the patient was clinically stable and was instructed to follow up at the [facility] in approximately one week.
--- NOTE | 2018-07-01 13:40 | EKG ---
Test Reason : Blood Pressure : / mmHG Vent. Rate : 094 BPM Atrial Rate : 094 BPM P-R Int : 196 ms QRS Dur : 112 ms QT Int : 442 ms P-R-T Axes : 069 -05 148 degrees QTc Int : 552 ms Normal sinus rhythm Possible Left atrial enlargement Inferior infarct , age undetermined T wave abnormality, consider lateral ischemia Prolonged QT No STEMI Abnormal ECG Confirmed by OPAL Quiñones, BRYON ([id number]), editor publications SKY MACIAS ([id number]) on 07/01/2018 1:40:11 PM Referred By: Confirmed By:BRYON JOSEPH M.D.
== END 2018-06-29 16:53 | disposition home or self-care (01) ==
LOC: ERS 03:16 → 2SW 05:51
PROVIDERS: ADMIT Internal Medicine Infectious Disease; ATTEND Internal Medicine Infectious Disease
DX: I13.0 Hypertensive heart and chronic kidney disease with heart failure and stage 1 through stage 4 chronic kidney disease, or unspecified chronic kidney disease (principal); I50.23 Acute on chronic systolic (congestive) heart failure; I25.10 Atherosclerotic heart disease of native coronary artery without angina pectoris; E11.22 Type 2 diabetes mellitus with diabetic chronic kidney disease; N18.2 Chronic kidney disease, stage 2 (mild); E78.00 Pure hypercholesterolemia, unspecified; Z91.14 Patient's other noncompliance with medication regimen; Z79.84 Long term (current) use of oral hypoglycemic drugs; Z79.01 Long term (current) use of anticoagulants; Z79.899 Other long term (current) drug therapy
CPT/HCPCS: 71045; 80048; 80053; 82553; 82962 ×2; 83690; 83735; 83880 ×2; 84484 ×2; 85025 ×2; 93005; 96374; 96376 ×2; 99285; 99406; G0378 ×2; 36415; 36416; 81003; 81015; A4216; J1940

== ENCOUNTER 2018-08-19 10:56 | Inpatient (IN) | payer MEDICARE ==
[2018-08-19 11:32] LABS: #Basophils 0.1 thou/uL (0.0-0.2); #Eosinphils 0.1 thou/uL (0.0-0.7); #Lymphocytes 1.4 thou/uL (1.20-3.40); #Monocytes 0.7 thou/uL (0.11-0.59); #Neutrophils 5.2 thou/uL (1.40-6.50); %Basophils 0.9 % (0.0-1.0); %Eosinophils 1.5 % (0.0-10.0); %Monocytes 8.9 % (0.0-10.0); %Neutrophils 69.8 % (42.0-75.0); Hemoglobin 11.5 g/dL (14.0-18.0); Mean Corpuscular HGB CONC 30.2 g/dL (32.0-36.0); Mean Corpuscular Volume 95.9 fL (78.0-98.0); Mean Platelet Volume 9.7 fL (7.4-10.4); Platelet Count 192 thou/uL (130-400); RBC Distribution Width 14.6 % (11.5-14.5); Red Blood Cell (RBC) Count 3.97 mill/uL (4.70-6.10); White Blood Cell (WBC) Count 7.4 thou/uL (4.8-10.8)
--- NOTE | 2018-08-19 11:49 | RAD ---
CHEST 1 VIEW: Date: 08/19/18 HISTORY: 57-year-old male with history of dyspnea, shortness of breath, and weakness. COMPARISON: 06/28/18. FINDINGS: Left ICD. Prominent cardiomegaly with bilateral vascular congestion and interstitial changes noted bi laterally, certainly concerning for some acute interstitial edema. Findings are little changed from t he 06/28/18 study, but definitely worse when compared to 06/20/18 study. IMPRESSION: Cardiomegaly with bilateral vascular congestion and interstitial edema and probable very small pleura l effusions, with little change and overall stable from the 06/28/18 study. POS: [facility]
[2018-08-19 11:53] LABS: ALT (SGPT) 8 U/L (8-55); AST (SGOT) 13 U/L (5-34); Albumin 3.5 g/dL (3.5-5.0); Alkaline Phosphatase 77 U/L (40-150); Anion Gap 10 mmol/L (10-20); BUN (Urea Nitrogen) 17 mg/dL (8.4-25.7); Bilirubin, Total 1.9 mg/dL (0.2-1.2); CK (CPK) 77 U/L (30-200); Calc. Creatinine Clearance 0 mL/min (70-130); Calcium 8.9 mg/dL (7.8-10.44); Carbon Dioxide 28 mmol/L (22-29); Chloride 106 mmol/L (98-107); Estimated GFR-MDRD 60; Globulin 3.4 g/dL (2.4-3.5); Glucose 116 mg/dL (70-105); Protein, Total 6.9 g/dL (6.0-8.3); Sodium 140 mmol/L (136-145)
[2018-08-19 11:57] LABS: CKMB 1.3 ng/mL (0-6.6); Troponin I 0.027 ng/mL (< 0.028)
[2018-08-19] MEDS ORDERED: methylPREDNISolone Sod Succ/PF 125 MG/2 ML VIAL ONE (12:17)
[2018-08-19] MEDS ORDERED: Furosemide 40 MG/4 ML VIAL ONE (12:17)
[2018-08-19] MEDS ORDERED: Albuterol Sulfate 2.5 mg/3 ml Neb ONE (12:23)
[2018-08-19] MEDS ORDERED: Acetaminophen 325 MG TAB PO PRN (13:17)
[2018-08-19] MEDS ORDERED: Metolazone 5 MG TAB PO SCH (13:30)
[2018-08-19] MEDS ORDERED: Furosemide 40 MG/4 ML VIAL SLOW IVP SCH (14:00)
[2018-08-19 14:24] VITALS: BMI 28.5
[2018-08-19 15:08] LABS: Troponin I 0.032 ng/mL (< 0.028)
[2018-08-19] MEDS ORDERED: PROVENTIL INHALER 6.7 G (200 INHALATIONS) INH PRN (15:20)
[2018-08-19] MEDS ORDERED: Dextrose 50% Abboject 50 ML SYRINGE SLOW IVP PRN (16:07)
[2018-08-19] MEDS ORDERED: Dextrose 5% in Water 1,000 ML IV PRN (16:07)
[2018-08-19] MEDS: HumaLOG 300 UNITS/3 ML VIAL SC PRN (17:27)
[2018-08-19 18:14] LABS: Troponin I 0.028 ng/mL (< 0.028)
[2018-08-19] MEDS: glipiZIDE 5 MG TAB PO SCH (20:34)
[2018-08-19] MEDS: Apixaban 5 MG TAB PO SCH (20:35)
[2018-08-19] MEDS: Carvedilol 6.25 MG TAB PO SCH (20:35)
[2018-08-19] MEDS: Atorvastatin Calcium 40 MG TAB PO SCH (20:35)
[2018-08-19] MEDS: hydrALAZINE 25 MG TAB PO SCH (20:35)
[2018-08-19] MEDS: Isosorbide Dinitrate 20 MG TAB PO SCH (20:35)
--- NOTE | 2018-08-19 21:24 | HP ---
CHIEF COMPLAINT: Shortness of breath. HISTORY OF PRESENT ILLNESS: This patient is a 57-year-old male with a known history of severe cardio myopathy which I believe is related to some prior drug use. The patient's ejection fraction is docum ented around 10%-15%. He has had previous admissions for decompensation of his heart failure. The mariana coffey presented today via ambulance to the Emergency Department with the complaint of 5 days of wors ening shortness of breath, peripheral edema, and orthopnea. He says he has been taking his medicines as prescribed, but continues to progress nonetheless. Patient cannot give a great deal of detailed information because he is on BiPAP at this particular time. REVIEW OF SYSTEMS: The patient denies any cough, chest pain, fevers, or chills. Remainder of 10-sys tem review is negative. PAST MEDICAL HISTORY: Notable for the above-mentioned cardiomyopathy with ACC/AHA class 3 congestive heart failure, diabetes mellitus, history of ventricular tachycardia with a defibrillator placement, chronic systolic heart failure, hypertension, hyperlipidemia, chronic kidney disease, coronary arter y disease, some reported history of COPD per the record. PAST SURGICAL HISTORY: AICD and 3 intracoronary stents. FAMILY HISTORY: His parents in old age with no known inheritable diseases or cardiac disease. SOCIAL HISTORY: The patient is single, nonsmoker, nondrinker, has no children. He is FULL CODE. Di d not identify surrogate decision maker at this time. CURRENT MEDICATIONS: Albuterol, Eliquis, amiodarone, Lasix, Coreg, atorvastatin, aspirin, glipizide, Aldactone, lisinopril, Isordil, hydralazine. ALLERGIES: None. PHYSICAL EXAMINATION: VITAL SIGNS: Temperature 97.6, pulse 71, respirations 18, O2 saturation 98% on BiPAP, it is now down to 3 liters, BP is 140/82. GENERAL APPEARANCE: Age appropriate male. He is on BiPAP. He is somewhat tachypneic. HEENT: PERRL. No visible OP lesions, did not take off his BiPAP to examine. NECK: Reveals bilateral significant JVD to the line of the jaw. HEART: Regular without murmurs. No rubs. LUNGS: Have diminished breath sounds at the bases and rales above that has some mild upper airway wh eezes as well. ABDOMEN: Slightly distended, but soft and nontender. EXTREMITIES: Have pitting edema which is very firm, but up to the level of the mid and upper thigh b ilaterally. He has some chronic stasis changes. LABORATORY DATA AND IMAGING DATA: White count 7.4, hemoglobin 11.5, platelets 192. Sodium 140, pota ssium 4.0, chloride 106, CO2 28, BUN 17, creatinine 1.47, glucose 116, calcium 8.9, albumin 1.9, AST 13 and ALT 8. Troponin 0.027, BNP 3829, albumin 3.5. Chest x-ray shows pulmonary edema and vascular engorgement. EKG shows some first degree block, nonspecific T-wave changes. IMPRESSION AND PLAN: 1. Acute on chronic diastolic heart failure manifested as peripheral edema and pulmonary edema. The patient has received Lasix in the Emergency Department. We will give him IV Lasix b.i.d. We will ad d a dose of Zaroxolyn before his next dose as well. I think the primary issue is to continue to get the patient diuresed. He is on all the appropriate medications otherwise. We will need to work dili gently at his discharge to make sure he is able to follow his daily weights and understands the Lasix as a tool to prevent reaccumulation of fluid going forward. 2. Acute respiratory failure. Patient was requiring BiPAP and is now being able to come down to cristina e nasal cannula. Should improve with diuresis. 3. Hypertension. We will continue with his usual home medication regimen. 4. Diabetes mellitus. We will order Accu-Cheks and a sliding scale when continue with his usual gli pizide dose. 5. History of ventricular tachycardia. Patient is on Coreg and amiodarone and has a defibrillator i n place. 6. History of chronic obstructive pulmonary disease. Continue with his albuterol. Add nebulizers a s tolerated or as needed rather. 7. History of coronary artery disease. Continue with the Eliquis and isosorbide.
--- NOTE | 2018-08-19 23:02 | CON ---
DATE OF CONSULTATION: 08/19/2018 SERVICE: Pulmonary Medicine. REASON FOR CONSULTATION: Respiratory failure. HISTORY OF PRESENT ILLNESS: The patient is a 57-year-old -[place] male with past medical history significant for heart failure. He was just recently discharged from the hospital on 06/28/2018 with volume overload state. He returned to his usual state of health, but over the last 2 weeks, he had had slow progressive increasing shortness of breath. He had orthopnea, paroxysmal nocturnal dyspnea, and dyspnea with exertion. He is not having any cough or sputum. He denies having any fevers or chills, nausea, vomiting, diarrhea. He is not having any hot, red, swollen joints or rashes. Otherwise, he is in his usual state of health. This compares in a similar fashion to prior episodes where he was admitted for heart failure. PAST MEDICAL HISTORY: 1. Type 2 diabetes mellitus. 2. Chronic systolic heart failure (EF 10%-15%). 3. Hypertension. 4. Dyslipidemia. 5. Chronic kidney disease, stage 3. PAST SURGICAL HISTORY: 1. AICD. 2. PCI done at least 4. SOCIAL HISTORY: Negative for current alcohol, tobacco or illicit drug use. He has no exposure to chemicals, dust, asbestosis or tuberculosis. FAMILY HISTORY: Noncontributory. ALLERGIES: No known drug allergies. MEDICATIONS: List of his inpatient medications were reviewed and slightly modified. I have increased his dose of Lasix. REVIEW OF SYSTEMS: General, head, ears, eyes, nose, throat, cardiovascular, respiratory, GI, , musculoskeletal, neurologic and skin is negative except as mentioned in the HPI. PHYSICAL EXAMINATION: VITAL SIGNS: Afebrile, pulse 72, blood pressure 140/82, respirations 18, saturation 98% on BiPAP with 40% FiO2 and a PEEP of 7. GENERAL: The patient is awake and alert. He is talking in full sentences at this time. HEART: Normal rate and regular. LUNGS: Poor air entry. There is a slightly prolonged expiratory phase. I do not hear any adventitious sounds like wheezing or rhonchi, but very careful auscultation demonstrates bibasilar crackles. He is really not moving much air , so these are touch difficult to appreciate. ABDOMEN: Soft, nontender, nondistended. Bowel sounds are positive. MUSCULOSKELETAL: No cyanosis or clubbing. He has 2+ pitting in the bilateral lower extremities. NEUROLOGIC: Grossly nonfocal. LABORATORY DATA: WBC 7.4, hemoglobin 11.5 and stable, hemoglobin 1.9. Creatinine 1.47, which is right at his baseline. Basic metabolic profile is otherwise unremarkable. Total bilirubin 1.9 and stable. Liver function studies are otherwise unremarkable. His BNP is elevated at 3800 which is high compared to his baseline. Cardiac enzymes were at 0.032, but are now down trending to 0.028. Urinalysis is unremarkable. IMAGING DATA: Chest x-ray demonstrates very enlarged cardiac silhouette. AICD is in place. Pulmonary vascular congestion is noted. I see Babs B lines, fluid in the fissure, as well as bilateral pleural effusions. There is some fluffy infiltrates scattered throughout bilateral lung zones, more severe in the dependent regions, likely consistent with overt pulmonary edema. ASSESSMENT: 1. Acute hypoxic respiratory failure. 2. Acute on chronic systolic heart failure. 3. Chronic kidney disease, stage 3. DISCUSSION AND PLAN: We will increase our interval in dose of Lasix to 80 mg schedule twice daily. Otherwise, supportive measures will be continued. He is currently on BiPAP. This will be weaned away as tolerated. He will remain in the ICU over the next 12 hours, but if we get a significant amount volume off of him, and he is breathing comfortably on cannula tomorrow, he can be considered for transition to the telemetry unit. Pulmonary will continue to follow if he remains in this location. 70 minutes have been devoted to this patient in various activities. I personally reviewed all imaging studies and laboratory data noted within this document. For fifty percent of this time, I was interacting with the patient at the bedside or coordinating care with the care team. For the remainder of the time I was immediately available to the patient in the hospital unit. MINH
[2018-08-20 02:24] LABS: Amphetamine Not Detected (NotDetected); Barbiturates Screen Not Detected (NotDetected); Benzodiazepine Screen Not Detected (NotDetected); Cocaine Metabolite Screen Not Detected (NotDetected); Medtox Control Line Valid? VALID (VALID); Medtox Reader # READER 1; Methadone Not Detected (NotDetected); Methamphetamine Not Detected (NotDetected); Opiate Screen Not Detected (NotDetected); Oxycodone Screen Not Detected (NotDetected); Phencyclidine (PCP) Not Detected (NotDetected); THC/Cannabinoid Screen Not Detected (NotDetected); Tricyclic Screen Not Detected (NotDetected)
[2018-08-20 03:51] LABS: #Lymphocytes 0.9 thou/uL (1.20-3.40); #Monocytes 0.3 thou/uL (0.11-0.59); #Neutrophils 7.3 thou/uL (1.40-6.50); %Basophils 0.1 % (0.0-1.0); %Eosinophils 0.2 % (0.0-10.0); %Lymphocytes 10.2 % (21.0-51.0); %Monocytes 3.5 % (0.0-10.0); Hemoglobin 10.8 g/dL (14.0-18.0); Mean Corpuscular HGB CONC 31.9 g/dL (32.0-36.0); Mean Platelet Volume 9.7 fL (7.4-10.4); Platelet Count 183 thou/uL (130-400); RBC Distribution Width 14.3 % (11.5-14.5); White Blood Cell (WBC) Count 8.5 thou/uL (4.8-10.8)
[2018-08-20 04:11] LABS: ALT (SGPT) 7 U/L (8-55); AST (SGOT) 11 U/L (5-34); Albumin 3.2 g/dL (3.5-5.0); Alkaline Phosphatase 72 U/L (40-150); Anion Gap 11 mmol/L (10-20); BUN (Urea Nitrogen) 25 mg/dL (8.4-25.7); Bilirubin, Total 1.6 mg/dL (0.2-1.2); Calc. Creatinine Clearance 60 mL/min (70-130); Calcium 8.9 mg/dL (7.8-10.44); Carbon Dioxide 25 mmol/L (22-29); Chloride 103 mmol/L (98-107); Estimated GFR-MDRD 53; Globulin 3.2 g/dL (2.4-3.5); Glucose 322 mg/dL (70-105); Potassium 3.9 mmol/L (3.5-5.1); Protein, Total 6.4 g/dL (6.0-8.3); Sodium 135 mmol/L (136-145)
[2018-08-20] MEDS: Furosemide 100 MG/10 ML VIAL SLOW IVP SCH ×2 (06:13→14:42)
[2018-08-20] MEDS: HumaLOG 300 UNITS/3 ML VIAL SC PRN ×2 (06:17→11:23)
[2018-08-20] MEDS: Apixaban 5 MG TAB PO SCH ×2 (08:09→21:45)
[2018-08-20] MEDS: Spironolactone 25 MG TAB PO SCH (08:09)
[2018-08-20] MEDS: Carvedilol 6.25 MG TAB PO SCH ×2 (08:09→21:45)
[2018-08-20] MEDS: Lisinopril 5 MG TAB PO SCH (08:09)
[2018-08-20] MEDS: Isosorbide Dinitrate 20 MG TAB PO SCH ×3 (08:09→21:46)
[2018-08-20] MEDS: hydrALAZINE 25 MG TAB PO SCH ×3 (08:09→21:46)
[2018-08-20] MEDS: glipiZIDE 5 MG TAB PO SCH ×2 (08:09→21:46)
[2018-08-20] MEDS: Aspirin 81 mg Enteric Coated Tablet PO SCH (08:09)
[2018-08-20] MEDS: Amiodarone 200 MG TAB PO SCH (08:09)
--- NOTE | 2018-08-20 13:31 | PDOC.PN ---
- Subjective Encounter Start Date: 08/20/18 Encounter Start Time: 11:30 Subjective: pt up in bed feels much better today - Objective Resuscitation Status: Resuscitation Status FULL:Full Resuscitation Vital Signs & Weight: Vital Signs (12 hours) Temp Pulse Resp BP BP BP BP 08/20/18 12:57 97.5 F L 71 18 122/66 08/20/18 11:13 97.8 F 65 24 H 107/58 L 08/20/18 10:31 69 12 112/60 08/20/18 08:09 72 129/73 08/20/18 07:41 98.2 F 72 16 131/75 08/20/18 07:10 08/20/18 06:23 08/20/18 03:50 97.5 F L 74 18 134/83 Pulse Ox 08/20/18 12:57 95 08/20/18 11:13 98 08/20/18 10:31 86 L 08/20/18 08:09 08/20/18 07:41 100 08/20/18 07:10 100 08/20/18 06:23 97 08/20/18 03:50 95 Weight Weight 187 lb 3.2 oz I&O: 08/19/18 08/20/18 08/21/18 06:59 06:59 06:59 Intake Total 930 840 Output Total 2400 2450 Balance -1470 -1610 Result Diagrams: 08/20/18 03:38 08/20/18 03:38 Additional Labs: Accuchecks 08/20/18 08/20/18 08/19/18 10:50 06:02 20:46 POC Glucose 180 H 269 H 321 H 08/19/18 16:31 POC Glucose 247 H Phys Exam - Physical Examination Neck: no nodes, no JVD, supple, full ROM Respiratory: no wheezing, no rales, no rhonchi, wheezing present, clear to auscultation bilateral Cardiovascular: RRR, no significant murmur, no rub, gallop, irregular Gastrointestinal: soft, non-tender, no distention, positive bowel sounds Dx/Plan (1) Acute on chronic systolic ACC/AHA stage C congestive heart failure Code(s): I50.23 - ACUTE ON CHRONIC SYSTOLIC (CONGESTIVE) HEART FAILURE Status : Acute (2) CKD (chronic kidney disease) stage 3, GFR 30-59 ml/min Status: Chronic (3) DM type 2 (diabetes mellitus, type 2) Status: Chronic Qualifiers: Diabetes mellitus skilled nursing insulin use: without termite helper use Diabetes mellitus complication status: with kidney complications Diabetes mellitus complication detail: with chronic kidney disease Chronic kidney disease stage : stage 3 (moderate) Qualified Code(s): E11.22 - Type 2 diabetes mellitus with diabetic chronic kidney disease; N18.3 - Chronic kidney disease, stage 3 ( moderate) - Plan will add lantus and insulin with meals -: continue lasix -: will consult cardiology since his ef is low as 10-15% will -: repeat his echo * . Review of Systems - Review of Systems Cardiovascular: negative: chest pain, palpitations, orthopnea, paroxysmal nocturnal dyspnea, edema, light headedness, other Gastrointestinal: negative: Nausea, Vomiting, Abdominal Pain, Diarrhea, Constipation, Melena, Hematochezia, Other Genitourinary: negative: Dysuria, Frequency, Incontinence, Hematuria, Retention , Other - Medications/Allergies Allergies/Adverse Reactions: Allergies Allergy/AdvReac Type Severity Reaction Status Date / Time No Known Allergies Allergy Verified 06/28/18 07:14 Medications: Current Medications Acetaminophen (Tylenol) 650 mg PO Q4H PRN PRN Reason: Headache/Fever/Mild Pain (1-3) Albuterol Sulfate (Proventil Hfa) 2 puff INH Q6H PRN PRN Reason: SOB &/or Wheezing Albuterol/Ipratropium (Duoneb) 3 ml NEB [id number] PRN PRN Reason: SOB &/or Wheezing Amiodarone HCl (Cordarone) 200 mg PO DAILY [facility] Last Admin: 08/20/18 08:09 Dose: 200 mg Apixaban (Eliquis) 5 mg PO BID [facility] Last Admin: 08/20/18 08:09 Dose: 5 mg Aspirin (Ecotrin) 81 mg PO DAILY [facility] Last Admin: 08/20/18 08:09 Dose: 81 mg Atorvastatin Calcium (Lipitor) 40 mg PO HS [facility] Last Admin: 08/19/18 20:35 Dose: 40 mg Carvedilol (Coreg) 6.25 mg PO BID [facility] Last Admin: 08/20/18 08:09 Dose: 6.25 mg Dextrose/Water (Dextrose 50%) 25 gm SLOW IVP PRN PRN PRN Reason: Hypoglycemia Furosemide (Lasix) 80 mg SLOW IVP 0600,1400 [facility] Last Admin: 08/20/18 06:13 Dose: 80 mg Glipizide (Glucotrol) 5 mg PO BID [facility] Last Admin: 08/20/18 08:09 Dose: 5 mg Glucagon (Glucagon) 1 mg IM PRN PRN PRN Reason: Hypoglycemia Hydralazine HCl (Apresoline) 25 mg PO TID [facility] Last Admin: 08/20/18 08:09 Dose: 25 mg Dextrose/Water (D5w) 1,000 mls @ 0 mls/hr IV .Q0M PRN PRN Reason: Hypoglycemia Insulin Human Lispro (Humalog) 0 units SC .MILD SLIDING SCALE PRN PRN Reason: Mild Correctional Scale Last Admin: 08/20/18 11:23 Dose: 2 unit Isosorbide Dinitrate (Isordil) 20 mg PO TID [facility] Last Admin: 08/20/18 08:09 Dose: 20 mg Lisinopril (Zestril) 5 mg PO DAILY [facility] Last Admin: 08/20/18 08:09 Dose: 5 mg Sodium Chloride (Flush - Normal Saline) 10 ml IVF Q12HR [facility] Last Admin: 08/20/18 08:10 Dose: 10 ml Sodium Chloride (Flush - Normal Saline) 10 ml IVF PRN PRN PRN Reason: Saline Flush Last Admin: 08/20/18 06:14 Dose: 10 ml Spironolactone (Aldactone) 25 mg PO QAM-WM [facility] Last Admin: 08/20/18 08:09 Dose: 25 mg
[2018-08-20] MEDS ORDERED: Insulin Glargine 5 UNITS in Pre-Filled Syringe 1 EACH SC SCH ×2 (14:00→21:00)
[2018-08-20] MEDS ORDERED: HumaLOG 300 UNITS/3 ML VIAL SC SCH (15:00)
--- NOTE | 2018-08-20 16:08 | PRG ---
DATE OF SERVICE: 08/20/2018 SERVICE: Pulmonary Medicine. INTERVAL HISTORY: The patient is doing outstanding from a respiratory standpoint. He denies any cur rent chest pain, fevers, chills, shortness of breath, nausea or vomiting. Otherwise, there has been no interval change to his condition. OBJECTIVE: VITAL SIGNS: Afebrile, pulse 71, blood pressure 122/66, respirations 18, saturation 95% on 2 liters nasal cannula. GENERAL: The patient is awake, alert, no apparent distress. LUNGS: Decent air entry. There is actually much better air entry today with no prolonged expiratory phase. I do not appreciate wheezing or rhonchi. Dependent crackles are minimal. HEART: Normal rate, regular. ABDOMEN: Soft, nontender, nondistended. Bowel sounds are positive. MUSCULOSKELETAL: No cyanosis or clubbing. There is 1-2+ pitting in the bilateral lower extremities. NEUROLOGIC: Grossly nonfocal. LABORATORY DATA: WBC 8.5, hemoglobin 10.8, platelets 183,000. Creatinine 1.63 and up trending. BUN 25. Basic metabolic profile is otherwise unremarkable. Total bilirubin is down trending to 1.6. L iver function studies are otherwise unremarkable. Cardiac enzymes are down trending to 0.28, blood s ugars ranged from 180-322. Urine drug screen is negative on this admission. ASSESSMENT: 1. Acute hypoxic respiratory failure. 2. Acute on chronic systolic heart failure. 3. Chronic kidney disease, stage 3. DISCUSSION AND PLAN: The patient is doing fine from a respiratory standpoint. He is off of BiPAP. He is even off of oxygen. As such, we can transition him to the telemetry unit. We will continue to diurese him, but we can back off on her rate slightly. When he goes to the floor, he will have no f urther requirements for inpatient Pulmonary or Critical Care opinion, and I will sign off. Please ca ll with additional questions or concerns moving forward.
[2018-08-20] MEDS: Atorvastatin Calcium 40 MG TAB PO SCH (21:45)
[2018-08-20] MEDS: HumaLOG 300 UNITS/3 ML VIAL SC SCH (21:46)
[2018-08-21] MEDS: Aspirin 81 mg Enteric Coated Tablet PO SCH (09:14)
[2018-08-21] MEDS: Carvedilol 6.25 MG TAB PO SCH ×2 (09:14→21:08)
[2018-08-21] MEDS: glipiZIDE 5 MG TAB PO SCH ×2 (09:14→21:07)
[2018-08-21] MEDS: Spironolactone 25 MG TAB PO SCH (09:14)
[2018-08-21] MEDS: Apixaban 5 MG TAB PO SCH ×2 (09:15→21:08)
[2018-08-21] MEDS: Isosorbide Dinitrate 20 MG TAB PO SCH ×3 (09:15→21:08)
[2018-08-21] MEDS: hydrALAZINE 25 MG TAB PO SCH ×3 (09:15→21:07)
[2018-08-21] MEDS: HumaLOG 300 UNITS/3 ML VIAL SC SCH ×2 (09:15→17:05)
[2018-08-21] MEDS: Lisinopril 5 MG TAB PO SCH (09:15)
[2018-08-21] MEDS: Amiodarone 200 MG TAB PO SCH (09:15)
[2018-08-21] MEDS: Furosemide 100 MG/10 ML VIAL SLOW IVP SCH (09:16)
[2018-08-21] MEDS: Insulin Glargine 5 UNITS in Pre-Filled Syringe 1 EACH SC SCH (09:26)
--- NOTE | 2018-08-21 11:42 | PDOC.PN ---
- Subjective Encounter Start Date: 08/21/18 Encounter Start Time: 12:15 Subjective: pt up in bed feels much better - Objective Resuscitation Status: Resuscitation Status FULL:Full Resuscitation Vital Signs & Weight: Vital Signs (12 hours) Temp Pulse Resp BP BP Pulse Ox 08/21/18 07:45 92 L 08/21/18 07:37 98.3 F 61 18 132/69 93 L 08/21/18 03:51 97.7 F 71 20 134/73 92 L Weight Weight 187 lb 3.2 oz I&O: 08/20/18 08/21/18 08/22/18 06:59 06:59 06:59 Intake Total 930 1993 Output Total 2400 5846 Balance -2973 -8496 Result Diagrams: 08/20/18 03:38 08/20/18 03:38 Additional Labs: Accuchecks 08/21/18 08/21/18 08/20/18 10:34 05:30 20:29 POC Glucose 195 H 255 H 179 H 08/20/18 17:33 POC Glucose 85 Phys Exam - Physical Examination Neck: no nodes, no JVD, supple, full ROM Respiratory: no wheezing, no rales, no rhonchi, wheezing present, clear to auscultation bilateral Cardiovascular: RRR, no significant murmur, no rub, gallop, irregular Gastrointestinal: soft, non-tender, no distention, positive bowel sounds Dx/Plan (1) Acute on chronic systolic ACC/AHA stage C congestive heart failure Code(s): I50.23 - ACUTE ON CHRONIC SYSTOLIC (CONGESTIVE) HEART FAILURE Status : Acute (2) CKD (chronic kidney disease) stage 3, GFR 30-59 ml/min Status: Chronic (3) DM type 2 (diabetes mellitus, type 2) Status: Chronic Qualifiers: Diabetes mellitus alf insulin use: without terminal block assembler use Diabetes mellitus complication status: with kidney complications Diabetes mellitus complication detail: with chronic kidney disease Chronic kidney disease stage : stage 3 (moderate) Qualified Code(s): E11.22 - Type 2 diabetes mellitus with diabetic chronic kidney disease; N18.3 - Chronic kidney disease, stage 3 ( moderate) - Plan continue lasix for now -: will check bmp today and replace electrolytes -: pt on eliquis hh stable * . Review of Systems - Review of Systems Respiratory: negative: Cough, Dry, Shortness of Breath, Hemoptysis, SOB with Excertion, Pleuritic Pain, Sputum, Wheezing Cardiovascular: negative: chest pain, palpitations, orthopnea, paroxysmal nocturnal dyspnea, edema, light headedness, other Gastrointestinal: negative: Nausea, Vomiting, Abdominal Pain, Diarrhea, Constipation, Melena, Hematochezia, Other Genitourinary: negative: Dysuria, Frequency, Incontinence, Hematuria, Retention , Other - Medications/Allergies Allergies/Adverse Reactions: Allergies Allergy/AdvReac Type Severity Reaction Status Date / Time No Known Allergies Allergy Verified 06/28/18 07:14 Medications: Current Medications Acetaminophen (Tylenol) 650 mg PO Q4H PRN PRN Reason: Headache/Fever/Mild Pain (1-3) Albuterol Sulfate (Proventil Hfa) 2 puff INH Q6H PRN PRN Reason: SOB &/or Wheezing Albuterol/Ipratropium (Duoneb) 3 ml NEB [id number] PRN PRN Reason: SOB &/or Wheezing Amiodarone HCl (Cordarone) 200 mg PO DAILY [facility] Last Admin: 08/21/18 09:15 Dose: 200 mg Apixaban (Eliquis) 5 mg PO BID [facility] Last Admin: 08/21/18 09:15 Dose: 5 mg Aspirin (Ecotrin) 81 mg PO DAILY [facility] Last Admin: 08/21/18 09:14 Dose: 81 mg Atorvastatin Calcium (Lipitor) 40 mg PO HS [facility] Last Admin: 08/20/18 21:45 Dose: 40 mg Carvedilol (Coreg) 6.25 mg PO BID [facility] Last Admin: 08/21/18 09:14 Dose: 6.25 mg Dextrose/Water (Dextrose 50%) 25 gm SLOW IVP PRN PRN PRN Reason: Hypoglycemia Furosemide (Lasix) 40 mg SLOW IVP DAILY [facility] Last Admin: 08/21/18 09:16 Dose: 40 mg Glipizide (Glucotrol) 5 mg PO BID [facility] Last Admin: 08/21/18 09:14 Dose: 5 mg Glucagon (Glucagon) 1 mg IM PRN PRN PRN Reason: Hypoglycemia Hydralazine HCl (Apresoline) 25 mg PO TID [facility] Last Admin: 08/21/18 09:15 Dose: 25 mg Dextrose/Water (D5w) 1,000 mls @ 0 mls/hr IV .Q0M PRN PRN Reason: Hypoglycemia Insulin Glargine 5 units/ (Miscellaneous Medication) 0.05 mls @ 0 mls/hr SC QAM [facility] Last Admin: 08/21/18 09:26 Dose: 0.05 mls Insulin Human Lispro (Humalog) 0 units SC .MILD SLIDING SCALE PRN PRN Reason: Mild Correctional Scale Last Admin: 08/20/18 11:23 Dose: 2 unit Insulin Human Lispro (Humalog) 3 units SC TID [facility] Last Admin: 08/21/18 09:15 Dose: 3 unit Isosorbide Dinitrate (Isordil) 20 mg PO TID [facility] Last Admin: 08/21/18 09:15 Dose: 20 mg Lisinopril (Zestril) 5 mg PO DAILY [facility] Last Admin: 08/21/18 09:15 Dose: 5 mg Sodium Chloride (Flush - Normal Saline) 10 ml IVF Q12HR [facility] Last Admin: 08/21/18 09:16 Dose: 10 ml Sodium Chloride (Flush - Normal Saline) 10 ml IVF PRN PRN PRN Reason: Saline Flush Last Admin: 08/20/18 06:14 Dose: 10 ml Spironolactone (Aldactone) 25 mg PO QAM-[facility] Last Admin: 08/21/18 09:14 Dose: 25 mg
[2018-08-21 12:54] LABS: Anion Gap 11 mmol/L (10-20); BUN (Urea Nitrogen) 25 mg/dL (8.4-25.7); Calc. Creatinine Clearance 58 mL/min (70-130); Calcium 9.9 mg/dL (7.8-10.44); Carbon Dioxide 35 mmol/L (22-29); Chloride 96 mmol/L (98-107); Estimated GFR-MDRD 52; Glucose 134 mg/dL (70-105); Potassium 3.8 mmol/L (3.5-5.1); Sodium 138 mmol/L (136-145)
[2018-08-21] MEDS: Atorvastatin Calcium 40 MG TAB PO SCH (21:08)
--- NOTE | 2018-08-21 23:36 | CON ---
DATE OF CONSULTATION: 08/21/2018 ROOM NUMBER: [id number] PRIMARY CARE PHYSICIAN: [facility]. PRIMARY SPLIT LEATHER MOSSER: Sourav Baig M.D. REFERRING PROVIDER: Stefanie Batista M.D. REASON FOR CARDIOLOGY CONSULTATION: Shortness of breath and systolic congestive heart failure. HISTORY OF PRESENT ILLNESS: Mr. Irving is a 57 years old -[place] male with a significant hist ory of severe chronic systolic heart failure, severe cardiomyopathy with AICD placement, hypertension , COPD, and cocaine abuse. He was discharged from this hospital in 07/2018. He was instructed to fo llow up with his primary care doctor as soon as possible; however, he has not done yet due to no maura y and no transportation there and he noticed that he started having more edema and shortness of breat h for 1-1/2 weeks, but today his shortness of breath is getting become worse, so the patient called a mbulance. The patient was transferred to emergency department for further evaluation and treatment. He denies any chest pain or dizziness, lightheadedness, or any other cardiac complaints. He states that he is not adding salt into the food; however, his sister is cooking for him and he does not know whether she is watching salt-intake consumption for this patient. He is watching how much the fluid intake at home. He is continued smoking, last smoking was about 2-3 days ago. He has been using co tip, but he said he stops using about couple months ago. The patient having follow up with Dr. Kerry huff in the office either. The patient has atrial fibrillation and fluttering and patient has a history of atrial flutter ablati on in 2013 and also DONNA and cardioversion in 11/2017. The patient is maintaining the sinus rhythm wi th amiodarone and labetalol at this moment. DONNA in 11/2017 shows severe decrease in left ventricular systolic function, biatrial enlargement, left ventricle is markedly dilated, mild to moderate mitral valve regurgitation, moderate tricuspid regurgitation, atherosclerosis degree in the descending orde r. Venogram was done in 11/2017 showed no DVT in the lower extremities. PAST MEDICAL HISTORY: 1. Ischemic cardiomyopathy and an AICD placement. 2. Chronic systolic heart failure. 3. Diabetes type 2. 4. History of atrial flutter, status post ablation in 2013 and cardioversion in 11/2017, small PE in the left lower lobe. 5. Chronic kidney disease stage 3. 6. Coronary artery disease with status post multiple stent placements. 7. COPD. 8. Chronic cocaine abuse and tobacco abuse. PAST SURGICAL HISTORY: He had an atrial flutter ablation in 2013, AICD placement and multiple stent placements in the past. FAMILY HISTORY: The patient's father due to cardiac related cause. One of the patient's br other due to renal related disease. SOCIAL HISTORY: The patient is single. She has 3 children, but he has been see them for all while. He is living with his sister. He is continued smoking and he used cocaine, but he states that he qu it about a couple of months ago. He denied any EtOH abuse. ALLERGIES: He has no known drug allergies. MEDICATIONS: Albuterol 2 puffs every 6 hours as needed, amiodarone 200 mg once a day, Eliquis 5 mg t wice a day, aspirin 81 mg once a day, atorvastatin 40 mg once a day, Coreg 6.25 mg twice a day, Lasix 40 mg once a day, glyburide 5 mg twice a day, hydralazine 25 mg 3 times a day, isosorbide dinitrate 20 mg 3 times a day, lisinopril 5 mg once a day, spironolactone 25 mg once a day. REVIEW OF SYSTEMS: A 12-point review of systems was negative, unless otherwise mentioned in the HPI. PHYSICAL EXAMINATION: VITAL SIGNS: Blood pressure 124/64, temperature 98.3, pulse is 71, sinus rhythm, respiratory rate is 18, O2 sat 94% with 2 liters nasal cannula. GENERAL: The patient is alert, oriented x4, not in acute distress. HEAD: Normocephalic, atraumatic. EYES: Extraocular muscle movement intact. ENT AND MOUTH: Oral and nasal mucosa are moist without lesion. NECK: There are balancing pulses in the bilateral neck, but carotid pulses are present without bruit or thrill. LUNGS: Clear but very tight and diminished at the bases. CARDIOVASCULAR: Regular rate rhythm. Normal S1, S2. There are no S3, S4. No significant murmur, h reed, thrill are noted. EXTREMITIES: Very diminished pulses in the lower extremities. Cold to palpate and type skin. The patient able to move all extremities without difficulties. ABDOMEN: Soft, nontender or mass to palpate. Bowel sounds are present. SKIN: The patient has a dressing to the right lower extremity, lateral side. The patient stated the patient had a blister, but patient did refuse to take it off dressing at this moment. NEUROLOGIC: The patient is alert, oriented x4, nonfocal. PSYCHIATRIC: The patient is easy to get a state. LABORATORY DATA: WBC 8.5, hemoglobin 10.8, hematocrit 33.9, platelet 183,000. Sodium 138, potassium 3.8, BUN 25, creatinine 1.66, which is worse. Glucose 134, AST is 11, ALT is 7. Troponins are nega tive. BNP was 3828. Cholesterol 180, triglycerides 95, HDL 32, LDL 129. TSH was in 09/2017. Magnesium is 2.0 in 06/2018. Hemoglobin A1c, last one was 8 in 2012. IMAGING: Chest x-ray reviewed cardiomegaly with bilateral vascular congestion, interstitial edema an d probable very small pleural effusion. ASSESSMENT AND PLAN: 1. Acute on chronic systolic and diastolic congestive heart failure. DONNA in 11/2017 showed a decrea sed left ventricular ejection fraction, bilateral atrial enlargement, left ventricular hypertrophy. The patient's respiratory status is stable at this moment with 2 liters nasal cannula and Lasix 40 mg once a day. The patient is on carvedilol 6.25 mg twice a day and lisinopril 5 mg once a day and spi ronolactone 25 mg once a day. 2. History of atrial flutter with rapid ventricular response with status post DONNA and a cardioversio n in 11/2017 and ablation in 2013. The patient in the sinus rhythm at this moment with amiodarone 20 0 mg once a day and Eliquis 5 mg twice a day. 3. History of a small pulmonary embolism in the left lower lobe. The patient on Eliquis at this mom ent, which is managed by the primary care doctor. 4. Chronic kidney disease stage 3. The patient's current creatinine level is in the baseline. We w ould like to continue to monitor. 5. Coronary artery disease with a history of multiple stent placements. The patient is on beta bloc ker, WENDIE inhibitor, and aspirin. He is not on Plavix; however, he is on Eliquis at this moment. 6. Diabetes type 2. The patient on a.c. and at bedtime blood glucose with a sliding scale insulin. 7. Chronic obstructive pulmonary disease. The patient's respiratory status is stable with 2 liters nasal cannula and Lasix. 8. Tobacco and cocaine abuse. Cocaine and tobacco cessation education given to the patient. 9. No ncompliance of medication. Even after long discussion about compliant of the medication, patient can not follow up with the patient's primary care doctor due to his transportation and his financial stat us. Thank you very much for allowing the Cardiology Service to participate in the care of this patient. We will follow along the patient care team and make further recommendations as appropriate.
--- NOTE | 2018-08-22 00:34 | CON ---
DATE OF CONSULTATION: 08/21/2018 DATE OF ADMISSION: 08/19/2018 INDICATION FOR CONSULTATION: A 57-year-old gentleman with end-stage cardiomyopathy with ejection fra ction of 10%-15%, who has had several admissions for decompensation of his congestive heart failure. He has had an AICD placed and he has again presented with increasing shortness of breath, lower extr emity edema, and congestive heart failure again. He has been diuresed over the last couple of days a nd is feeling better. He has had significant output after being given IV diuretics and he is overall now improved. Please refer to the notes dictated by my nurse practitioner, Valeria Escobar for the past medical history, social history, family history, review of systems, medications, allergies. This g entleman has had coronary artery disease in the past also. For his coronary artery disease, he has u ndergone angioplasty and stent placements according to him and also has had AICD placed. He has not had AICD checked in some time he says, but most likely his last admission that probably was evaluated . He also has a history of diabetes and ventricular tachycardia as well as COPD. PHYSICAL EXAMINATION: GENERAL: Reveals a thin gentleman who is in no acute distress at this time. He was walking around t he room when I arrived. VITAL SIGNS: Blood pressure 124/64, heart rate is 71 and regular. He is afebrile, respiratory rate is 18. HEENT: Shows head to be normocephalic, atraumatic. Carotid pulses are present. I did not hear any significant bruits. CHEST: Actually, he has minimal decreased breath sounds in the bases and has some mild rales, otherw ise overall generally is relatively clear. CARDIOVASCULAR: Exam reveals a regular rate and rhythm. There were no significant murmurs, heaves, thrills, bruits, or rubs. ABDOMEN: Soft and nontender. Positive bowel sounds are present. EXTREMITIES: He has 1 to 2+ lower extremity edema all the way up to the groin. Pedal pulses were no t palpable by me. Popliteal pulses were present but are somewhat decreased. NEUROLOGICALLY: He joey ears to be intact. SKIN: Warm and dry. LABORATORY DATA: Please refer to the notes already dictated. His troponin I is still indeterminate and most likely is unremarkable, does not indicate myocardial infarction associated with his severe d ecrease in left ventricular systolic function. His BNP was 3828, creatinine is 1.47. His potassium was 4.0. He has had a history of drug abuse in the past, but his drug screen at this time was negati ve. IMPRESSION: 1. End-stage cardiomyopathy with severe decrease in left ventricular systolic function. He has had an AICD placed and most likely he has some degree of ischemic cardiomyopathy, but also has a history of illicit drug use in the past, which may be the etiology of his cardiomyopathy also. We will nga nue the present medications with diuretics, beta blockers, and WENDIE inhibitors as well as the [place] e. He will be encouraged again to watch his p.o. intake of fluids as well as salt intake and once he is again euvolemic that he can be discharged to home. 2. Hypertension. He is doing very well with the present medications. 3. Diabetes. This will be followed by the primary care service 4. History of ventricular tachycardia. He has an AICD in place. He has had no shocks recently he i s aware of, but he has been on Coreg. We will continue these medications. Further care of the patie nt will be determined based on how he responds to the present therapy.
[2018-08-22 06:37] LABS: Anion Gap 14 mmol/L (10-20); BUN (Urea Nitrogen) 24 mg/dL (8.4-25.7); Calc. Creatinine Clearance 56 mL/min (70-130); Calcium 9.4 mg/dL (7.8-10.44); Carbon Dioxide 28 mmol/L (22-29); Chloride 99 mmol/L (98-107); Estimated GFR-MDRD 56; Glucose 224 mg/dL (70-105); Potassium 4.2 mmol/L (3.5-5.1); Sodium 137 mmol/L (136-145)
[2018-08-22] MEDS: HumaLOG 300 UNITS/3 ML VIAL SC SCH ×3 (08:29→17:33)
[2018-08-22] MEDS: Spironolactone 25 MG TAB PO SCH (08:30)
[2018-08-22] MEDS: Isosorbide Dinitrate 20 MG TAB PO SCH ×3 (10:05→21:37)
[2018-08-22] MEDS: glipiZIDE 5 MG TAB PO SCH ×2 (10:05→21:37)
[2018-08-22] MEDS: Amiodarone 200 MG TAB PO SCH (10:06)
[2018-08-22] MEDS: hydrALAZINE 25 MG TAB PO SCH ×3 (10:06→21:38)
[2018-08-22] MEDS: Lisinopril 5 MG TAB PO SCH (10:06)
[2018-08-22] MEDS: Carvedilol 6.25 MG TAB PO SCH ×2 (10:07→21:37)
[2018-08-22] MEDS: Apixaban 5 MG TAB PO SCH ×2 (10:07→21:39)
[2018-08-22] MEDS: Furosemide 100 MG/10 ML VIAL SLOW IVP SCH (10:08)
[2018-08-22] MEDS: Aspirin 81 mg Enteric Coated Tablet PO SCH (10:08)
[2018-08-22] MEDS: Insulin Glargine 5 UNITS in Pre-Filled Syringe 1 EACH SC SCH (10:09)
[2018-08-22] MEDS: HumaLOG 300 UNITS/3 ML VIAL SC PRN ×2 (12:02→17:34)
--- NOTE | 2018-08-22 12:48 | PDOC.PN ---
- Subjective Encounter Start Date: 08/22/18 Encounter Start Time: 09:45 Subjective: pt up in bed complains of some pain to his lower ext - Objective Resuscitation Status: Resuscitation Status FULL:Full Resuscitation Vital Signs & Weight: Vital Signs (12 hours) Temp Pulse Resp BP Pulse Ox 08/22/18 10:06 62 08/22/18 08:26 98.0 F 62 16 129/68 98 08/22/18 05:32 97 08/22/18 03:13 98.2 F 64 20 124/62 97 Weight Weight 168 lb I&O: 08/21/18 08/22/18 08/23/18 06:59 06:59 06:59 Intake Total 1992 1439 Output Total 5144 1987 Balance -8302 -5039 Result Diagrams: 08/20/18 03:38 08/22/18 06:05 Additional Labs: Accuchecks 08/22/18 08/22/18 08/21/18 10:21 05:49 21:02 POC Glucose 172 H 183 H 139 H 08/21/18 16:26 POC Glucose 197 H Phys Exam - Physical Examination Neck: no nodes, no JVD, supple, full ROM Respiratory: no wheezing, no rales, no rhonchi, wheezing present, clear to auscultation bilateral Cardiovascular: RRR, no significant murmur, no rub, gallop, irregular Gastrointestinal: soft, non-tender, no distention, positive bowel sounds Dx/Plan (1) Acute on chronic systolic ACC/AHA stage C congestive heart failure Code(s): I50.23 - ACUTE ON CHRONIC SYSTOLIC (CONGESTIVE) HEART FAILURE Status : Acute (2) CKD (chronic kidney disease) stage 3, GFR 30-59 ml/min Status: Chronic (3) DM type 2 (diabetes mellitus, type 2) Status: Chronic Qualifiers: Diabetes mellitus claim service representative insulin use: without retirement use Diabetes mellitus complication status: with kidney complications Diabetes mellitus complication detail: with chronic kidney disease Chronic kidney disease stage : stage 3 (moderate) Qualified Code(s): E11.22 - Type 2 diabetes mellitus with diabetic chronic kidney disease; N18.3 - Chronic kidney disease, stage 3 ( moderate) - Plan will continue diuresis -: will get lower ext dopplers pt complains of pain -: gerald stable * . Review of Systems - Review of Systems Respiratory: negative: Cough, Dry, Shortness of Breath, Hemoptysis, SOB with Excertion, Pleuritic Pain, Sputum, Wheezing Cardiovascular: negative: chest pain, palpitations, orthopnea, paroxysmal nocturnal dyspnea, edema, light headedness, other Gastrointestinal: negative: Nausea, Vomiting, Abdominal Pain, Diarrhea, Constipation, Melena, Hematochezia, Other Genitourinary: negative: Dysuria, Frequency, Incontinence, Hematuria, Retention , Other - Medications/Allergies Allergies/Adverse Reactions: Allergies Allergy/AdvReac Type Severity Reaction Status Date / Time No Known Allergies Allergy Verified 06/28/18 07:14 Medications: Current Medications Acetaminophen (Tylenol) 650 mg PO Q4H PRN PRN Reason: Headache/Fever/Mild Pain (1-3) Albuterol Sulfate (Proventil Hfa) 2 puff INH Q6H PRN PRN Reason: SOB &/or Wheezing Albuterol/Ipratropium (Duoneb) 3 ml NEB [id number] PRN PRN Reason: SOB &/or Wheezing Amiodarone HCl (Cordarone) 200 mg PO DAILY [facility] Last Admin: 08/22/18 10:06 Dose: 200 mg Apixaban (Eliquis) 5 mg PO BID [facility] Last Admin: 08/22/18 10:07 Dose: 5 mg Aspirin (Ecotrin) 81 mg PO DAILY [facility] Last Admin: 08/22/18 10:08 Dose: 81 mg Atorvastatin Calcium (Lipitor) 40 mg PO HS [facility] Last Admin: 08/21/18 21:08 Dose: 40 mg Carvedilol (Coreg) 6.25 mg PO BID [facility] Last Admin: 08/22/18 10:07 Dose: 6.25 mg Dextrose/Water (Dextrose 50%) 25 gm SLOW IVP PRN PRN PRN Reason: Hypoglycemia Furosemide (Lasix) 40 mg SLOW IVP DAILY [facility] Last Admin: 08/22/18 10:08 Dose: 40 mg Glipizide (Glucotrol) 5 mg PO BID [facility] Last Admin: 08/22/18 10:05 Dose: 5 mg Glucagon (Glucagon) 1 mg IM PRN PRN PRN Reason: Hypoglycemia Hydralazine HCl (Apresoline) 25 mg PO TID [facility] Last Admin: 08/22/18 10:06 Dose: 25 mg Dextrose/Water (D5w) 1,000 mls @ 0 mls/hr IV .Q0M PRN PRN Reason: Hypoglycemia Insulin Glargine 5 units/ (Miscellaneous Medication) 0.05 mls @ 0 mls/hr [facility] [place] Last Admin: 08/22/18 10:09 Dose: 0.05 mls Insulin Human Lispro (Humalog) 0 units SC .MILD SLIDING SCALE PRN PRN Reason: Mild Correctional Scale Last Admin: 08/22/18 12:02 Dose: 2 unit Insulin Human Lispro (Humalog) 3 units SC TID-[facility] Last Admin: 08/22/18 12:01 Dose: 3 unit Isosorbide Dinitrate (Isordil) 20 mg PO TID [facility] Last Admin: 08/22/18 10:05 Dose: 20 mg Lisinopril (Zestril) 5 mg PO DAILY [facility] Last Admin: 08/22/18 10:06 Dose: 5 mg Sodium Chloride (Flush - Normal Saline) 10 ml IVF Q12HR [facility] Last Admin: 08/21/18 09:16 Dose: 10 ml Sodium Chloride (Flush - Normal Saline) 10 ml IVF PRN PRN PRN Reason: Saline Flush Last Admin: 08/20/18 06:14 Dose: 10 ml Spironolactone (Aldactone) 25 mg PO QAM-[facility] Last Admin: 08/22/18 08:30 Dose: 25 mg
--- NOTE | 2018-08-22 14:46 | PDOC.CTH ---
<Valeria Escobar - Last Filed: 08/22/18 14:48> Cardiology Progress Note - Subjective The pt seen and examined. No overnight events. No cardiac complaints. - Objective Vital Signs Temp Pulse Resp BP Pulse Ox 08/22/18 10:06 62 08/22/18 08:26 98.0 F 62 16 129/68 98 08/22/18 05:32 97 08/22/18 03:13 98.2 F 64 20 124/62 97 Weight 168 lb 08/21/18 08/22/18 08/23/18 06:59 06:59 06:59 Intake Total 1992 1440 Output Total 5305 3705 Balance -7919 -3735 - Physical Examination General/Neuro: alert & oriented x3 Neck: no JVD present Lungs: other: (diminished at bases) Heart: RRR Abdomen: soft Extremities: other: (No edema) - Telemetry Telemetry Rhythm: SR 60s - Labs Result Diagrams: 08/20/18 03:38 08/22/18 06:05 Troponin/CKMB CK-MB (CK-2) 1.3 ng/mL (0-6.6) 08/19/18 11:24 Troponin I 0.028 ng/mL (< 0.028) 08/19/18 17:39 - Assessment/Plan 1. Acute on chronic systolic HF - improving with Lasix IV; On BBlocker, WENDIE, Spironolactone, 2. Ischemic CMY with AICD placement - 3. Aflutter with Ablation in 2013 and DCCV in 11/2017 - remains in SR; 4. CAD with multiple stents - stable with BBlocker, WENDIE, Statin, and ASA. 5. PE to LLL - stable with Eliquis 6. CKD stage 3 - unchanged 7. COPD - stable 8. DM type 2 - managed by PCP 9. Ilicit and tobacco abuse - cessation education given to the pt. MAR reviewed . Review of Systems - Review of Systems Constitutional: reports: no symptoms reported EENTM: reports: no symptoms reported Respiratory: reports: no symptoms reported Cardiac (ROS): reports: no symptoms reported ABD/GI: reports: no symptoms reported : reports: no symptoms reported Musculoskeletal: reports: no symptoms reported Skin: reports: no symptoms reported Neurological: reports: no symptoms reported <Patrick Herman - Last Filed: 08/22/18 22:15> Cardiology Progress Note - Objective Vital Signs Temp Pulse Resp BP BP BP Pulse Ox 08/22/18 21:38 67 113/59 L 08/22/18 20:16 95 08/22/18 20:15 98.4 F 74 16 108/51 L 95 08/22/18 17:33 65 08/22/18 16:40 98.1 F 69 16 122/62 98 08/22/18 12:19 97.6 F 65 18 118/59 L 96 Weight 168 lb 08/21/18 08/22/18 08/23/18 06:59 06:59 06:59 Intake Total 1992 1440 1320 Output Total 8131 4641 1877 [facility] -9389 -1445 -555 - Labs Result Diagrams: 08/20/18 03:38 08/22/18 06:05 Troponin/CKMB CK-MB (CK-2) 1.3 ng/mL (0-6.6) 08/19/18 11:24 Troponin I 0.028 ng/mL (< 0.028) 08/19/18 17:39 - Assessment/Plan Pt. seen and evaluated by me. I agree with the A/P by the [facility]. We have discussed the pt. and the plan.Chest clear RRR.
[2018-08-22] MEDS: Atorvastatin Calcium 40 MG TAB PO SCH (21:37)
--- NOTE | 2018-08-22 21:43 | ULT ---
VENOUS DOPPLER ULTRASOUND OF BOTH LOWER EXTREMITIES: INDICATIONS: Bilateral lower extremity edema and pain. CPT: 22789 ICD-10-PCS: B54D TECHNIQUE: Color flow Doppler, spectral waveform analysis of pulsed Doppler, and will-scale imaging with isabelle asia and augmentation, were used to evaluate the bilateral common femoral, femoral, popliteal, lathe machinist ior tibial, and superficial femoral, veins; and the proximal portions of the profunda femoral and gre ater saphenous, veins. FINDINGS: There is normal compression, flow, and augmentation seen within the deep venous structures of both lo wer extremities. IMPRESSION: No evidence of deep venous thrombosis with both lower extremities. POS: [facility]
[2018-08-23] MEDS: hydrALAZINE 25 MG TAB PO SCH ×3 (08:26→20:48)
[2018-08-23] MEDS: Spironolactone 25 MG TAB PO SCH (08:26)
[2018-08-23] MEDS: Amiodarone 200 MG TAB PO SCH (08:26)
[2018-08-23] MEDS: Aspirin 81 mg Enteric Coated Tablet PO SCH (08:26)
[2018-08-23] MEDS: Lisinopril 5 MG TAB PO SCH (08:27)
[2018-08-23] MEDS: Carvedilol 6.25 MG TAB PO SCH ×2 (08:27→20:48)
[2018-08-23] MEDS: glipiZIDE 5 MG TAB PO SCH ×2 (08:27→20:48)
[2018-08-23] MEDS: Isosorbide Dinitrate 20 MG TAB PO SCH ×3 (08:27→20:48)
[2018-08-23] MEDS: HumaLOG 300 UNITS/3 ML VIAL SC SCH ×3 (08:27→17:25)
[2018-08-23] MEDS: Apixaban 5 MG TAB PO SCH ×2 (08:27→20:48)
[2018-08-23] MEDS: Furosemide 100 MG/10 ML VIAL SLOW IVP SCH (08:28)
[2018-08-23] MEDS: Insulin Glargine 5 UNITS in Pre-Filled Syringe 1 EACH SC SCH (09:43)
[2018-08-23] MEDS: Furosemide 40 MG/4 ML VIAL SLOW IVP SCH (14:33)
--- NOTE | 2018-08-23 18:07 | PDOC.PN ---
- Subjective Encounter Start Date: 08/23/18 Encounter Start Time: 10:30 Subjective: pt up walking no complains - Objective Resuscitation Status: Resuscitation Status FULL:Full Resuscitation Vital Signs & Weight: Vital Signs (12 hours) Temp Pulse Resp BP BP BP Pulse Ox 08/23/18 15:31 66 114/55 L 08/23/18 15:30 98.1 F 66 18 114/55 L 98 08/23/18 12:10 97.1 F L 66 18 117/55 L 93 L 08/23/18 08:26 70 139/62 08/23/18 08:15 94 L 08/23/18 08:00 97.8 F 70 18 139/62 94 L Weight Weight 169 lb I&O: 08/22/18 08/23/18 08/24/18 06:59 06:59 06:59 Intake Total 1440 1320 660 Output Total 6375 2375 Balance -1445 -1057 660 Result Diagrams: 08/20/18 03:38 08/22/18 06:05 Additional Labs: Accuchecks 08/23/18 08/23/18 08/23/18 16:57 11:04 06:32 POC Glucose 175 H 139 H 152 H 08/22/18 21:05 POC Glucose 147 H Phys Exam - Physical Examination Neck: no nodes, no JVD, supple, full ROM Respiratory: no wheezing, no rales, no rhonchi, wheezing present, clear to auscultation bilateral Cardiovascular: RRR, no significant murmur, no rub, gallop, irregular Gastrointestinal: soft, non-tender, no distention, positive bowel sounds Musculoskeletal: edema present Dx/Plan (1) Acute on chronic systolic ACC/AHA stage C congestive heart failure Code(s): I50.23 - ACUTE ON CHRONIC SYSTOLIC (CONGESTIVE) HEART FAILURE Status : Acute (2) CKD (chronic kidney disease) stage 3, GFR 30-59 ml/min Status: Chronic (3) DM type 2 (diabetes mellitus, type 2) Status: Chronic Qualifiers: Diabetes mellitus halfway insulin use: without halfway use Diabetes mellitus complication status: with kidney complications Diabetes mellitus complication detail: with chronic kidney disease Chronic kidney disease stage : stage 3 (moderate) Qualified Code(s): E11.22 - Type 2 diabetes mellitus with diabetic chronic kidney disease; N18.3 - Chronic kidney disease, stage 3 ( moderate) - Plan pt clinically improving, his lasix dose has been increased by cardio -: possible dishcharge in am -: pt on asa/statin/bb/yaima/leslie * . Review of Systems - Review of Systems Respiratory: negative: Cough, Dry, Shortness of Breath, Hemoptysis, SOB with Excertion, Pleuritic Pain, Sputum, Wheezing Cardiovascular: negative: chest pain, palpitations, orthopnea, paroxysmal nocturnal dyspnea, edema, light headedness, other Gastrointestinal: negative: Nausea, Vomiting, Abdominal Pain, Diarrhea, Constipation, Melena, Hematochezia, Other - Medications/Allergies Allergies/Adverse Reactions: Allergies Allergy/AdvReac Type Severity Reaction Status Date / Time No Known Allergies Allergy Verified 06/28/18 07:14 Medications: Current Medications Acetaminophen (Tylenol) 650 mg PO Q4H PRN PRN Reason: Headache/Fever/Mild Pain (1-3) Albuterol Sulfate (Proventil Hfa) 2 puff INH Q6H PRN PRN Reason: SOB &/or Wheezing Albuterol/Ipratropium (Duoneb) 3 ml NEB [id number] PRN PRN Reason: SOB &/or Wheezing Amiodarone HCl (Cordarone) 200 mg PO DAILY [facility] Last Admin: 08/23/18 08:26 Dose: 200 mg Apixaban (Eliquis) 5 mg PO BID [facility] Last Admin: 08/23/18 08:27 Dose: 5 mg Aspirin (Ecotrin) 81 mg PO DAILY [facility] Last Admin: 08/23/18 08:26 Dose: 81 mg Atorvastatin Calcium (Lipitor) 40 mg PO HS [facility] Last Admin: 08/22/18 21:37 Dose: 40 mg Carvedilol (Coreg) 6.25 mg PO BID [facility] Last Admin: 08/23/18 08:27 Dose: 6.25 mg Dextrose/Water (Dextrose 50%) 25 gm SLOW IVP PRN PRN PRN Reason: Hypoglycemia Furosemide (Lasix) 40 mg SLOW IVP 0600,1400 [facility] Last Admin: 08/23/18 14:33 Dose: 40 mg Glipizide (Glucotrol) 5 mg PO BID [facility] Last Admin: 08/23/18 08:27 Dose: 5 mg Glucagon (Glucagon) 1 mg IM PRN PRN PRN Reason: Hypoglycemia Hydralazine HCl (Apresoline) 25 mg PO TID [facility] Last Admin: 08/23/18 15:31 Dose: 25 mg Dextrose/Water (D5w) 1,000 mls @ 0 mls/hr IV .Q0M PRN PRN Reason: Hypoglycemia Insulin Glargine 5 units/ (Miscellaneous Medication) 0.05 mls @ 0 mls/hr [facility] [place] Last Admin: 08/23/18 09:43 Dose: 0.05 mls Insulin Human Lispro (Humalog) 0 units SC .MILD SLIDING SCALE PRN PRN Reason: Mild Correctional Scale Last Admin: 08/22/18 17:34 Dose: 2 unit Insulin Human Lispro (Humalog) 3 units SC TID-[facility] Last Admin: 08/23/18 17:25 Dose: 3 unit Isosorbide Dinitrate (Isordil) 20 mg PO TID [facility] Last Admin: 08/23/18 15:31 Dose: 20 mg Lisinopril (Zestril) 5 mg PO DAILY [facility] Last Admin: 08/23/18 08:27 Dose: 5 mg Sodium Chloride (Flush - Normal Saline) 10 ml IVF Q12HR [facility] Last Admin: 08/23/18 09:41 Dose: Not Given Sodium Chloride (Flush - Normal Saline) 10 ml IVF PRN PRN PRN Reason: Saline Flush Last Admin: 08/23/18 14:33 Dose: 10 ml Spironolactone (Aldactone) 25 mg PO QAM-[facility] Last Admin: 08/23/18 08:26 Dose: 25 mg
[2018-08-23] MEDS: Atorvastatin Calcium 40 MG TAB PO SCH (20:48)
[2018-08-24 05:27] LABS: Hemoglobin 12.1 g/dL (14.0-18.0); Platelet Count 236 thou/uL (130-400)
[2018-08-24] MEDS: Furosemide 40 MG/4 ML VIAL SLOW IVP SCH (06:09)
[2018-08-24] MEDS: Aspirin 81 mg Enteric Coated Tablet PO SCH (09:27)
[2018-08-24] MEDS: hydrALAZINE 25 MG TAB PO SCH ×2 (09:27→15:53)
[2018-08-24] MEDS: Amiodarone 200 MG TAB PO SCH (09:27)
[2018-08-24] MEDS: glipiZIDE 5 MG TAB PO SCH (09:27)
[2018-08-24] MEDS: Apixaban 5 MG TAB PO SCH (09:27)
[2018-08-24] MEDS: Isosorbide Dinitrate 20 MG TAB PO SCH ×2 (09:28→15:53)
[2018-08-24] MEDS: Carvedilol 6.25 MG TAB PO SCH (09:28)
[2018-08-24] MEDS: Lisinopril 5 MG TAB PO SCH (09:28)
[2018-08-24] MEDS: Spironolactone 25 MG TAB PO SCH (09:28)
[2018-08-24] MEDS: HumaLOG 300 UNITS/3 ML VIAL SC SCH ×3 (09:31→17:29)
[2018-08-24] MEDS: Insulin Glargine 5 UNITS in Pre-Filled Syringe 1 EACH SC SCH (09:32)
[2018-08-24 17:43] VITALS: BP 121/59; TEMP 97.5
--- NOTE | 2018-08-24 18:50 | DIS ---
DATE OF DISCHARGE: 08/24/2018 DISCHARGE DISPOSITION: Home. FOLLOWUP: Follow up with primary care physician at [facility] in 1 week. Follow up with [facility] rt Failure [facility]. Follow up with Cardiology, Dr. Sourav Baig in 2-3 weeks. ALLERGIES: No known drug allergies. DISCHARGE MEDICATIONS: Same as admission medication including Eliquis, aspirin, amiodarone. The patient was seen and examined on the day of discharge. Denies any new complaints, no chest pain, shortness of breath, palpitations. BRIEF HOSPITAL COURSE: The patient is a 57-year-old male with chronic systolic heart failure, ejecti on fraction 10%-15%, hypertension and diabetes mellitus type 2, presented to the emergency room with worsening shortness of breath on 08/19/2018. Please refer to the history and physical for further de tails. The patient was admitted to the hospital with the diagnosis of congestive heart failure exacerbation. He was started on IV diuretics with metolazone. He initially required noninvasive positive pressur e ventilation. His O2 saturations gradually improved with diuretics. Diuretics has been changed to oral. He had a repeat echocardiogram that showed ejection fraction 10%-15% with global hypokinesis. He was extensively counseled on congestive heart failure. He was seen by Pulmonary as well as Cardi ology. His weight on the day of discharge is 172 pounds compared to 188 pounds on admission. He has been cleared by consultants for discharge. FINAL DIAGNOSES: 1. Acute hypoxic respiratory failure. 2. Acute on chronic systolic heart failure exacerbation. 3. Hypertension. 4. Diabetes mellitus type 2. 5. Chronic obstructive pulmonary disease. 6. Coronary artery disease. 7. History of ventricular arrhythmia. 8. Coronary artery disease. Plan of care was discussed with the patient in detail. He stated understanding.
[2018-08-25] MEDS ORDERED: Furosemide 40 MG TAB PO SCH (07:30)
== END 2018-08-24 17:51 | disposition home or self-care (01) | DRG 291 ==
LOC: ERS 10:56 → IMCU/EMU 14:07 → 2NO 08-20 12:47
PROVIDERS: ADMIT Internal Medicine; ATTEND Internal Medicine
PROC: 5A09357 Assistance with Respiratory Ventilation, Less than 24 Consecutive Hours, Continuous Positive Airway Pressure (ICD-10-PCS; principal; 2018-08-19)
DX: I13.0 Hypertensive heart and chronic kidney disease with heart failure and stage 1 through stage 4 chronic kidney disease, or unspecified chronic kidney disease (principal); J96.01 Acute respiratory failure with hypoxia; I50.43 Acute on chronic combined systolic (congestive) and diastolic (congestive) heart failure; E78.5 Hyperlipidemia, unspecified; N18.3 Chronic kidney disease, stage 3 (moderate); I25.10 Atherosclerotic heart disease of native coronary artery without angina pectoris; J44.9 Chronic obstructive pulmonary disease, unspecified; E11.22 Type 2 diabetes mellitus with diabetic chronic kidney disease; Z95.810 Presence of automatic (implantable) cardiac defibrillator; Z95.5 Presence of coronary angioplasty implant and graft; Z79.899 Other long term (current) drug therapy; Z79.01 Long term (current) use of anticoagulants; Z79.82 Long term (current) use of aspirin; I25.5 Ischemic cardiomyopathy; I48.91 Unspecified atrial fibrillation; F17.210 Nicotine dependence, cigarettes, uncomplicated
CPT/HCPCS: 36415; 36416; 71045; 80048; 80053; 80306; 82553; 82565; 83880; 84484; 85014; 85018; 85025; 85049; 90471; 90686; 93005; 93306; 93798; 93970; 94640; 94660; 96374; 96375; G0008; J1940; J2930; J7611; J7620

== ENCOUNTER 2018-08-31 11:19 | Outpatient (CLI) | payer MEDICARE ==
--- NOTE | 2018-08-31 12:56 | RAD ---
CHEST TWO VIEWS: HISTORY: CHF. Hypertension. Dyspnea. COMPARISON: 08/19/2018 FINDINGS: The cardiac silhouette is enlarged. The pulmonary vasculature is at the upper limits of normal but h as significantly improved, compared to the previous exam. The mediastinum is midline with a single l ead left subclavian cardiac defibrillator. No lobar consolidation, pneumothorax, or pleural fluid is apparent. IMPRESSION: Cardiomegaly appears stable. No evidence of florid edema. The pulmonary vasculature is at the uppe r limits of normal but improved compared to the previous examination. POS: [facility]
== END 2018-08-31 11:20 | disposition home or self-care (01) ==
LOC: RAD-FRANK 11:19
PROVIDERS: ATTEND Nurse Practitioner Family
DX: I42.9 Cardiomyopathy, unspecified (principal); I11.9 Hypertensive heart disease without heart failure
CPT/HCPCS: 71046

== ENCOUNTER 2018-11-13 12:59 | Inpatient (IN) | payer MEDICARE ==
[2018-11-13] MEDS ORDERED: Nitroglycerin 2% Ointment 1 INCH/1 GM Packet ONE (13:34)
[2018-11-13 13:56] LABS: #Eosinphils 0.1 thou/uL (0.0-0.7); #Lymphocytes 1.1 thou/uL (1.20-3.40); #Monocytes 0.6 thou/uL (0.11-0.59); #Neutrophils 4.5 thou/uL (1.40-6.50); %Basophils 0.7 % (0.0-1.0); %Eosinophils 1.4 % (0.0-10.0); %Lymphocytes 17.2 % (21.0-51.0); %Monocytes 9.3 % (0.0-10.0); %Neutrophils 71.3 % (42.0-75.0); Hemoglobin 11.2 g/dL (14.0-18.0); Mean Corpuscular HGB CONC 31.4 g/dL (32.0-36.0); Mean Corpuscular Hemoglobin 29.2 pg (27.0-31.0); Mean Corpuscular Volume 93.1 fL (78.0-98.0); Mean Platelet Volume 9.2 fL (7.4-10.4); Platelet Count 166 thou/uL (130-400); RBC Distribution Width 15.1 % (11.5-14.5); Red Blood Cell (RBC) Count 3.83 mill/uL (4.70-6.10); White Blood Cell (WBC) Count 6.2 thou/uL (4.8-10.8)
[2018-11-13 14:18] LABS: ALT (SGPT) 13 U/L (8-55); AST (SGOT) 17 U/L (5-34); Albumin 3.3 g/dL (3.5-5.0); Alkaline Phosphatase 90 U/L (40-150); Anion Gap 13 mmol/L (10-20); BUN (Urea Nitrogen) 19 mg/dL (8.4-25.7); Bilirubin, Total 1.2 mg/dL (0.2-1.2); CK (CPK) 76 U/L (30-200); Calc. Creatinine Clearance 0 mL/min (70-130); Calcium 8.5 mg/dL (7.8-10.44); Carbon Dioxide 21 mmol/L (22-29); Chloride 110 mmol/L (98-107); Estimated GFR-MDRD 60; Globulin 3.2 g/dL (2.4-3.5); Glucose 124 mg/dL (70-105); Lipase 61 U/L (8-78); Protein, Total 6.5 g/dL (6.0-8.3); Sodium 140 mmol/L (136-145)
[2018-11-13] MEDS ORDERED: Furosemide 40 MG/4 ML VIAL ONE (15:02)
--- NOTE | 2018-11-13 15:14 | RAD ---
PORTABLE CHEST: INDICATION: Dyspnea. COMPARISON: 08/31/2018. FINDINGS: Cardiomegaly. The ICD lead is unchanged. Mild vascular engorgement. No infiltrate or significant e ffusion. IMPRESSION: The above findings appear stable from prior exam. POS: [facility]
[2018-11-13] MEDS ORDERED: Lidocaine 1% PF 5 ML VIAL ONE ×2 (15:55→15:57)
[2018-11-13] MEDS ORDERED: Dextrose 50% Abboject 50 ML SYRINGE SLOW IVP PRN (16:21)
[2018-11-13] MEDS ORDERED: Dextrose 5% in Water 1,000 ML IV PRN (16:21)
[2018-11-13] MEDS ORDERED: Potassium Chloride 20 MEQ TAB PO SCH ×2 (17:00→19:00)
[2018-11-13 20:16] LABS: Troponin I 0.017 ng/mL (< 0.028)
--- NOTE | 2018-11-13 21:25 | HP ---
CHIEF COMPLAINT: Shortness of breath. HISTORY OF PRESENT ILLNESS: The patient is a 58-year-old male with end-stage heart failure, who was in our hospital 2 months ago and he is back. Apparently, his LVEF is 10% to 15% on the last echo, and he presents with few-day history of increased shortness of breath on and off. He denied any fever or chills. He has some productive cough with mucus. He feels cold quite often. He complains also about some pain in his both feet. He has paroxysmal nocturnal dyspnea and orthopnea. He was not able to sleep much for the last few nights. PAST MEDICAL HISTORY: Positive for; 1. Cardiomyopathy with ACC/AHA class III congestive heart failure. 2. Two diabetes mellitus type 2. 3. History of ventricular tachycardia with defibrillator placement. 4. Chronic systolic heart failure. 5. Hypertension. 6. Hyperlipidemia. 7. Chronic kidney disease. 8. Coronary artery disease. 9. COPD. PAST SURGICAL HISTORY: 1. AICD placement. 2. Intracoronary stents x3. FAMILY HISTORY: His parents in old age with no known inheritable disease or cardiac disease. SOCIAL HISTORY: He smokes 1 cigarette per day. He does not drink alcohol. Does not use any illicit drugs. Surrogate decision maker, Sylvia Irving, his sister. PRIMARY CARE PHYSICIAN: Dr. Luly Gill from [facility]. ALLERGIES: NONE. MEDICATIONS: Please refer to the medications list. REVIEW OF SYSTEMS: He feels tired and short of breath almost all the time. He denies any chest pain. He denies any fever or chills. He has positive productive cough with mucus. He has shooting pains in his both feet, that is chronic. He gets full from his meals quickly. PHYSICAL EXAMINATION: VITAL SIGNS: Blood pressure is 133/74, pulse is 60, respiratory rate is 22, O2 saturation is 99%. HEENT: His head is atraumatic and normocephalic. Eyes, PERRLA. Sclerae are nonicteric. Oral mucosa is moist. NECK: Supple. JVD is positive more than few centimeters. LUNGS: Breath sounds diminished at both bases. There is significant dullness on percussion at both bases. No wheezing. HEART: S1 and S2 somewhat distant. No S3. No S4. ABDOMEN: Soft and nontender. Bowel sounds are present. No organomegaly. EXTREMITIES: 2+ peripheral edema. Pulses are very diminished on both tibialis posterior and dorsalis pedis arteries similar bilaterally. He has an area which is in the right upper back, which looks like there is a piece of packing left in the incised abscess. It is dry, not draining any fluid. NEUROLOGIC: He is alert and oriented x4. There are no any motor deficits. He is able to move his all 4 extremities. He follows my commands. LABORATORY DATA: Labs showed sodium of 140, potassium 4.0, chloride 110, CO2 of 21, BUN 19, creatinine 1.45, glucose 124. BNP 3656. Troponin I is 0.016. Albumin 3.3. CBC showed a white count of 6.2, hemoglobin 11.2, hematocrit 35.7, platelet count 166,000. Chest x-ray showed cardiomegaly with ICD in place, some vascular congestion. No infiltrates. Electrocardiogram showed normal sinus rhythm with ventricular rate of 60 beats per minute with inverted T-waves in V4 and V5 and this was personally reviewed by me. IMPRESSION: 1. Exacerbation of congestive heart failure with LVEF of 10% to 15%. 2. Hypertension. 3. Chronic systolic heart failure. 4. Chronic kidney disease. 5. Coronary artery disease. 6. Chronic obstructive pulmonary disease. 7. Diabetes mellitus type 2. PLAN: Plan is admission to telemetry. Condition is guarded. He is full code. I think, he will do fine with diuresis in the next day or 2. Diet 2000 calories ADA diet. Activity, bedrest and bathroom privileges. Lasix 80 mg IV push every 12 hours, and we will review his home medications and start them as soon as the list is available. He will be on DVT prophylaxis with heparin. Job ID: [id number]
[2018-11-14] MEDS: Furosemide 100 MG/10 ML VIAL SLOW IVP SCH ×2 (05:35→14:55)
[2018-11-14 05:38] LABS: #Eosinphils 0.1 thou/uL (0.0-0.7); #Lymphocytes 1.2 thou/uL (1.20-3.40); #Monocytes 0.8 thou/uL (0.11-0.59); #Neutrophils 5.2 thou/uL (1.40-6.50); %Basophils 0.1 % (0.0-1.0); %Lymphocytes 15.9 % (21.0-51.0); %Monocytes 10.8 % (0.0-10.0); %Neutrophils 71.2 % (42.0-75.0); Hemoglobin 11.6 g/dL (14.0-18.0); Mean Corpuscular HGB CONC 31.1 g/dL (32.0-36.0); Mean Corpuscular Hemoglobin 28.9 pg (27.0-31.0); Mean Corpuscular Volume 92.9 fL (78.0-98.0); Platelet Count 183 thou/uL (130-400); RBC Distribution Width 15.4 % (11.5-14.5); Red Blood Cell (RBC) Count 4.01 mill/uL (4.70-6.10); White Blood Cell (WBC) Count 7.3 thou/uL (4.8-10.8)
[2018-11-14 06:05] LABS: Anion Gap 11 mmol/L (10-20); BUN (Urea Nitrogen) 23 mg/dL (8.4-25.7); Calc. Creatinine Clearance 61 mL/min (70-130); Calcium 8.9 mg/dL (7.8-10.44); Carbon Dioxide 25 mmol/L (22-29); Chloride 107 mmol/L (98-107); Estimated GFR-MDRD 53; Glucose 124 mg/dL (70-105); Potassium 4.1 mmol/L (3.5-5.1); Sodium 139 mmol/L (136-145)
--- NOTE | 2018-11-14 07:45 | PDOC.PN ---
- Subjective Encounter Start Date: 11/14/18 Encounter Start Time: 07:43 Subjective: Seen and examined undergoing diuresis - Objective Resuscitation Status - Order Detail: 11/13/18 15:37 Resuscitation Status Routine Resuscitation Status: FULL: Full Resuscitation Vital Signs & Weight: Vital Signs (12 hours) Temp Pulse Resp BP BP Pulse Ox 11/14/18 04:00 98.1 F 68 16 152/86 H 95 11/14/18 00:05 97.9 F 66 18 163/91 H 96 Weight Weight 195 lb 6.4 oz I&O: 11/13/18 11/14/18 11/15/18 06:59 06:59 06:59 Intake Total 840 Output Total 1650 Balance -810 Result Diagrams: 11/14/18 05:04 11/14/18 05:04 Additional Labs: Accuchecks 11/14/18 11/13/18 05:35 21:21 POC Glucose 131 H 153 H Phys Exam - Physical Examination Constitutional: NAD HEENT: PERRLA, moist MMs, sclera anicteric, TM's clear Neck: no nodes, supple, full ROM Respiratory: no wheezing, no rales, no rhonchi, clear to auscultation bilateral Cardiovascular: RRR, no significant murmur, no rub Gastrointestinal: soft, non-tender, no distention, positive bowel sounds Musculoskeletal: pulses present Dx/Plan (1) Acute on chronic systolic ACC/AHA stage C congestive heart failure Code(s): I50.23 - ACUTE ON CHRONIC SYSTOLIC (CONGESTIVE) HEART FAILURE Status : Acute (2) CKD (chronic kidney disease) stage 3, GFR 30-59 ml/min Status: Chronic (3) DM type 2 (diabetes mellitus, type 2) Status: Chronic Qualifiers: (4) History of pulmonary embolism Code(s): Z86.711 - PERSONAL HISTORY OF PULMONARY EMBOLISM Status: Chronic (5) Noncompliance with medication regimen Code(s): Z91.14 - PATIENT'S OTHER NONCOMPLIANCE WITH MEDICATION REGIMEN Status : Chronic - Plan social contact worker, DVT proph w/lovenox Contiune with parenteral diuresis * .
[2018-11-14] MEDS: Acetaminophen 325 MG TAB PO PRN (08:27)
[2018-11-14] MEDS: Enoxaparin Sodium 40 MG/0.4 ML SYRINGE SC SCH (08:28)
[2018-11-14] MEDS: HumaLOG 300 UNITS/3 ML VIAL SC PRN (12:01)
[2018-11-14] MEDS ORDERED: Polyethylene Glycol 3350 17 GM Packet PO PRN (19:53)
[2018-11-15 06:03] LABS: Anion Gap 12 mmol/L (10-20); BUN (Urea Nitrogen) 25 mg/dL (8.4-25.7); Calc. Creatinine Clearance 59 mL/min (70-130); Calcium 9.1 mg/dL (7.8-10.44); Carbon Dioxide 27 mmol/L (22-29); Chloride 103 mmol/L (98-107); Estimated GFR-MDRD 52; Glucose 161 mg/dL (70-105); Potassium 4.1 mmol/L (3.5-5.1); Sodium 138 mmol/L (136-145)
[2018-11-15] MEDS: Furosemide 100 MG/10 ML VIAL SLOW IVP SCH (06:18)
--- NOTE | 2018-11-15 07:58 | PDOC.PN ---
- Subjective Encounter Start Date: 11/15/18 Encounter Start Time: 07:56 Subjective: Seen and examined still somewhat short of breath - Objective Resuscitation Status - Order Detail: 11/13/18 15:37 Resuscitation Status Routine Resuscitation Status: FULL: Full Resuscitation Vital Signs & Weight: Vital Signs (12 hours) Temp Pulse Resp BP BP Pulse Ox 11/15/18 07:42 98.3 F 68 18 171/82 H 97 11/15/18 04:33 97.5 F L 71 16 160/77 H 95 11/15/18 00:00 63 16 155/75 H Weight Weight 189 lb 12.8 oz I&O: 11/14/18 11/15/18 11/16/18 06:59 06:59 06:59 Intake Total 840 2100 Output Total 1650 2150 Balance -810 -50 Result Diagrams: 11/14/18 05:04 11/15/18 04:59 Additional Labs: Accuchecks 11/15/18 11/14/18 11/14/18 05:42 20:31 16:58 POC Glucose 189 H 115 H 110 11/14/18 10:46 POC Glucose 204 H Phys Exam - Physical Examination Constitutional: NAD HEENT: PERRLA, moist MMs, sclera anicteric, TM's clear Neck: no nodes, no JVD, supple, full ROM Respiratory: no wheezing, no rales, no rhonchi, clear to auscultation bilateral Cardiovascular: RRR, no significant murmur, no rub Gastrointestinal: soft, non-tender, positive bowel sounds Musculoskeletal: pulses present, edema present Dx/Plan (1) Acute on chronic systolic ACC/AHA stage C congestive heart failure Code(s): I50.23 - ACUTE ON CHRONIC SYSTOLIC (CONGESTIVE) HEART FAILURE Status : Acute (2) CKD (chronic kidney disease) stage 3, GFR 30-59 ml/min Status: Chronic (3) DM type 2 (diabetes mellitus, type 2) Status: Chronic Qualifiers: (4) History of pulmonary embolism Code(s): Z86.711 - PERSONAL HISTORY OF PULMONARY EMBOLISM Status: Chronic (5) Noncompliance with medication regimen Code(s): Z91.14 - PATIENT'S OTHER NONCOMPLIANCE WITH MEDICATION REGIMEN Status : Chronic - Plan PT/OT, social group worker, respiratory therapy Wound care consult to address the back ulcer -: Transition to oral diuretics in preparation for dischage -: Consider augmenting loop diuretics with a thiazide * .
[2018-11-15] MEDS ORDERED: Metolazone 5 MG TAB PO SCH (08:00)
[2018-11-15] MEDS: Enoxaparin Sodium 40 MG/0.4 ML SYRINGE SC SCH (08:10)
[2018-11-15] MEDS: Acetaminophen 325 MG TAB PO PRN (08:11)
[2018-11-15] MEDS: Furosemide 20 MG TAB PO SCH ×2 (08:26→14:28)
[2018-11-15] MEDS: HumaLOG 300 UNITS/3 ML VIAL SC PRN ×2 (12:15→21:33)
[2018-11-15 12:38] VITALS: BMI 28.0
[2018-11-16 05:34] LABS: Anion Gap 14 mmol/L (10-20); BUN (Urea Nitrogen) 25 mg/dL (8.4-25.7); Calc. Creatinine Clearance 59 mL/min (70-130); Calcium 9.6 mg/dL (7.8-10.44); Carbon Dioxide 27 mmol/L (22-29); Chloride 99 mmol/L (98-107); Estimated GFR-MDRD 53; Glucose 148 mg/dL (70-105); Sodium 136 mmol/L (136-145)
[2018-11-16] MEDS: Furosemide 20 MG TAB PO SCH ×2 (08:45→14:53)
[2018-11-16] MEDS: Acetaminophen 325 MG TAB PO PRN (08:45)
[2018-11-16] MEDS: Enoxaparin Sodium 40 MG/0.4 ML SYRINGE SC SCH (08:45)
[2018-11-16] MEDS: HumaLOG 300 UNITS/3 ML VIAL SC PRN (11:52)
[2018-11-16] MEDS ORDERED: PROVENTIL INHALER 6.7 G (200 INHALATIONS) INH PRN (13:43)
[2018-11-16] MEDS: hydrALAZINE 25 MG TAB PO SCH ×2 (14:53→20:33)
[2018-11-16] MEDS: Carvedilol 6.25 MG TAB PO SCH (20:33)
[2018-11-16] MEDS: glipiZIDE 5 MG TAB PO SCH (20:33)
[2018-11-16] MEDS: Apixaban 5 MG TAB PO SCH (20:33)
--- NOTE | 2018-11-16 21:15 | PDOC.PN ---
- Subjective Encounter Start Date: 11/16/18 Encounter Start Time: 11:55 Still has some discomfort in his thighs that he associates with the fluid. He is still diuresing well. - Objective Resuscitation Status - Order Detail: 11/13/18 15:37 Resuscitation Status Routine Resuscitation Status: FULL: Full Resuscitation Vital Signs & Weight: Vital Signs (12 hours) Temp Pulse Resp BP BP BP Pulse Ox 11/16/18 20:33 69 141/76 H 11/16/18 19:49 97.5 F L 69 16 141/76 H 95 11/16/18 15:00 97.3 F L 65 18 155/74 H 96 11/16/18 11:57 97.4 F L 65 16 151/80 H 96 Weight Admit Weight 195 lb 6.4 oz Weight 184 lb I&O: 11/15/18 11/16/18 11/17/18 06:59 06:59 06:59 Intake Total 2100 1460 480 Output Total 2150 3625 2100 Balance -50 -5642 -6380 Result Diagrams: 11/14/18 05:04 11/16/18 04:47 Additional Labs: Accuchecks 11/16/18 11/16/18 11/16/18 20:33 17:26 11:29 POC Glucose 183 H 174 H 240 H 11/16/18 05:51 POC Glucose 183 H Phys Exam - Physical Examination Constitutional: NAD Respiratory: no wheezing, no rales, no rhonchi Cardiovascular: RRR II/ murmur. Gastrointestinal: soft, non-tender, no distention, positive bowel sounds Persistent edema. Fairly firm in thighs. Modest pitting. Psychiatric: normal affect, A&O x 3 Deviation from normal: Lesion on right upper back is a drained cutaneous abscess with iodoform Dx/Plan (1) Acute on chronic systolic ACC/AHA stage C congestive heart failure Code(s): I50.23 - ACUTE ON CHRONIC SYSTOLIC (CONGESTIVE) HEART FAILURE Status : Acute (2) CKD (chronic kidney disease) stage 3, GFR 30-59 ml/min Status: Chronic (3) DM type 2 (diabetes mellitus, type 2) Status: Chronic Qualifiers: (4) Cardiomyopathy Code(s): I42.9 - CARDIOMYOPATHY, UNSPECIFIED Status: Acute (5) Hypertension Code(s): I10 - ESSENTIAL (PRIMARY) HYPERTENSION Status: Acute (6) Hyperlipidemia Code(s): E78.5 - HYPERLIPIDEMIA, UNSPECIFIED Status: Acute (7) CAD (coronary artery disease) Code(s): I25.10 - ATHSCL HEART DISEASE OF [place] CORONARY ARTERY W/O ANG PCTRS Status: Chronic Qualifiers: Coronary Disease-Associated Artery/Lesion type: [place] artery [place] vs. transplanted heart: [place] heart Associated angina: without angina Qualified Code(s): I25.10 - Atherosclerotic heart disease of [place] coronary artery without angina pectoris (8) COPD (chronic obstructive pulmonary disease) Status: Chronic Qualifiers: Emphysema type: unspecified (9) Cutaneous abscess of back excluding buttocks Code(s): L02.212 - CUTANEOUS ABSCESS OF BACK [ANY PART, EXCEPT BUTTOCK] Status : Acute Comment: Apparently I and D performed around late September. - Plan * Continue to diurese. * Discussed the management plan for home. WIll need to track daily wts and use the Lasix as needed to control fluids. * Discussed with the heart failure team. High risk for readmission and non- compliance. They are working today to arrange transportation and resources.
[2018-11-17 07:46] VITALS: TEMP 97.5
[2018-11-17] MEDS ORDERED: Spironolactone 25 MG TAB PO SCH (08:00)
[2018-11-17] MEDS: Furosemide 20 MG TAB PO SCH ×2 (08:54→14:19)
[2018-11-17] MEDS: Carvedilol 6.25 MG TAB PO SCH (08:54)
[2018-11-17] MEDS: Apixaban 5 MG TAB PO SCH (08:54)
[2018-11-17] MEDS: glipiZIDE 5 MG TAB PO SCH (08:55)
[2018-11-17] MEDS: hydrALAZINE 25 MG TAB PO SCH (08:55)
[2018-11-17] MEDS ORDERED: Aspirin 81 mg Enteric Coated Tablet PO SCH (09:00)
[2018-11-17] MEDS ORDERED: Isosorbide Dinitrate 20 MG TAB PO SCH (09:00)
[2018-11-17] MEDS ORDERED: Furosemide 40 MG TAB PO SCH (09:00)
[2018-11-17] MEDS ORDERED: Lisinopril 5 MG TAB PO SCH (09:00)
[2018-11-17] MEDS ORDERED: Amiodarone 200 MG TAB PO SCH (09:00)
[2018-11-17 11:20] VITALS: BP 136/71
[2018-11-17] MEDS: HumaLOG 300 UNITS/3 ML VIAL SC PRN (12:37)
--- NOTE | 2018-11-18 14:51 | DIS ---
DATE OF ADMISSION: 11/13/2018 DATE OF DISCHARGE: 11/17/2018 DISCHARGE DIAGNOSES: 1. Acute on chronic systolic heart failure. 2. Congestive heart failure AHA stage C. 3. Chronic kidney disease, stage 3. 4. Diabetes mellitus type 2. 5. Cardiomyopathy. 6. Hypertension. 7. Hyperlipidemia. 8. Coronary artery disease. 9. Chronic obstructive pulmonary disease. 10. Cutaneous abscess of the right upper back. 11. History of pulmonary embolism. HISTORY OF PRESENT ILLNESS: The patient is a 58-year-old male with severe cardiomyopathy with an ejection fraction of 10% to 15% with history of prior admissions for decompensated congestive heart failure. This patient presented on November 13, 2018 to the emergency department with a complaint of shortness of breath over several days prior to his presentation. He denied any fevers or chills, but did have some cough. Also had some paroxysmal nocturnal dyspnea and orthopnea. His exam revealed diminished breath sounds, 2+ peripheral edema. BNP was 3656. Troponin 0.016. BUN 19, creatinine 1.45. Chest x-ray showed cardiomegaly with ICD in place, some vascular congestion with no infiltrates. HOSPITAL COURSE: The patient was admitted to the hospital with acutely decompensated congestive heart failure with underlying EF of 10% to 15% and significant volume overload. The patient was aggressively diuresed over the following several days. He had significant improvement in his pulmonary status and his breathing returned to normal. The patient had some persistent edema in the lower extremities, but continued to diurese well with IV Lasix. Once the patient's respiratory status had compensated, he was at his baseline, it was felt that he was likely ready for discharge. However, the patient has some challenges with obtaining resources and the congestive heart failure team worked an additional day to secure resources for the patient to ensure that he would get transportation and other necessary resources in order to diligently try to keep the patient from decompensating and have been a recurrent admissions. Also of note, the patient had a small abscess on his right upper back which had been previously incised and drained prior to his admission. The exam of this lesion showed a very shallow base with good healing and no further intervention was required other than some topical bandaging. On the day of discharge, temperature was 97.5, pulse 64, respirations 16, O2 saturation 95% on room air, BP was 136/71. The patient was awake, alert, oriented, pleasant, and cooperative. Heart was regular without murmurs. Lungs were diminished but clear without wheezes or rales. Abdomen was benign. Extremities revealed only trace edema. DISPOSITION: The patient is discharged to home. ACTIVITY: As tolerated. DIET: He will be on a heart healthy, low-sodium diet. DISCHARGE MEDICATIONS: He will be on: 1. Lasix 80 mg p.o. daily. 2. Potassium 20 mEq p.o. daily. 3. Albuterol inhaler two puffs q.6 hours p.r.n. 4. Amiodarone 200 mg daily. 5. Eliquis 5 mg daily. 6. Aspirin 81 mg daily. 7. Coreg 6.25 mg b.i.d. 8. Glipizide 5 mg b.i.d. 9. Hydralazine 25 mg t.i.d. 10. Lisinopril 5 mg daily. 11. Aldactone 25 mg daily. 12. Isosorbide 20 mg daily. FOLLOWUP: He is to follow up with Luly Gill in [place] on 11/23/2018 at 8:30 a.m. He will follow up with [facility] on 11/30/2018 at 10:40 a.m. He will follow up with Dr. Sourav Baig in 3-4 weeks. TIME SPENT: Total time in discharge activities including [id number] examining the patient and coordinating with the heart failure team was 40 minutes. Job ID: [id number]
--- NOTE | 2018-11-20 13:49 | EKG ---
Test Reason : TEST BANK Blood Pressure : / mmHG Vent. Rate : 060 BPM Atrial Rate : 060 BPM P-R Int : 200 ms QRS Dur : 120 ms QT Int : 558 ms P-R-T Axes : 041 007 147 degrees QTc Int : 558 ms Normal sinus rhythm Inferior infarct , age undetermined Abnormal ECG Confirmed by PHIL DAWSON, RADHIKA ([id number]), society editor ISAI INMAN ([id number]) on 11/20/2018 1:49:18 PM Referred By: Confirmed By:RADHIKA VILLARREAL MD
== END 2018-11-17 15:05 | disposition home or self-care (01) | DRG 291 ==
LOC: ERS 12:59 → 2SE 15:45 → 2NO 11-14 13:34
PROVIDERS: ADMIT Internal Medicine; ATTEND Internal Medicine
DX: I13.0 Hypertensive heart and chronic kidney disease with heart failure and stage 1 through stage 4 chronic kidney disease, or unspecified chronic kidney disease (principal); I50.23 Acute on chronic systolic (congestive) heart failure; L02.212 Cutaneous abscess of back [any part, except buttock and flank]; E11.22 Type 2 diabetes mellitus with diabetic chronic kidney disease; I25.10 Atherosclerotic heart disease of native coronary artery without angina pectoris; I42.9 Cardiomyopathy, unspecified; J44.9 Chronic obstructive pulmonary disease, unspecified; F17.210 Nicotine dependence, cigarettes, uncomplicated; N18.3 Chronic kidney disease, stage 3 (moderate); E78.5 Hyperlipidemia, unspecified; Z91.14 Patient's other noncompliance with medication regimen; Z86.711 Personal history of pulmonary embolism; Z79.84 Long term (current) use of oral hypoglycemic drugs; Z79.82 Long term (current) use of aspirin; Z79.899 Other long term (current) drug therapy; Z95.5 Presence of coronary angioplasty implant and graft; Z95.810 Presence of automatic (implantable) cardiac defibrillator
CPT/HCPCS: 36415; 36416; 71045; 80048; 80053; 82550; 83690; 83880; 84484; 85025; 93005; 93798; 94760; 96374; J1650; J1940; J2001

== ENCOUNTER 2019-01-03 20:37 | Inpatient (IN) | payer MEDICARE ==
[2019-01-03] MEDS ORDERED: Furosemide 40 MG/4 ML VIAL ONE (21:11)
[2019-01-03 21:12] LABS: #Eosinphils 0.1 thou/uL (0.0-0.7); #Lymphocytes 1.4 thou/uL (1.20-3.40); #Monocytes 0.8 thou/uL (0.11-0.59); #Neutrophils 4.9 thou/uL (1.40-6.50); %Basophils 0.7 % (0.0-1.0); %Eosinophils 1.2 % (0.0-10.0); %Lymphocytes 19.3 % (21.0-51.0); %Monocytes 11.2 % (0.0-10.0); %Neutrophils 67.6 % (42.0-75.0); Mean Corpuscular HGB CONC 30.5 g/dL (32.0-36.0); Mean Corpuscular Hemoglobin 29.2 pg (27.0-31.0); Mean Corpuscular Volume 95.7 fL (78.0-98.0); Platelet Count 139 thou/uL (130-400); RBC Distribution Width 14.8 % (11.5-14.5); Red Blood Cell (RBC) Count 3.77 mill/uL (4.70-6.10); White Blood Cell (WBC) Count 7.2 thou/uL (4.8-10.8)
--- NOTE | 2019-01-03 21:27 | RAD ---
CHEST ONE VIEW: History: Chest pain, shortness of breath. Comparison: 11-13-18 FINDINGS: Stable left sided defibrillator. Persistent cardiomegaly. Pulmonary vessels are prominent. Diffuse in terstitial opacity, likely representing edema or infiltrate. No pneumothorax. IMPRESSION: Congestive heart failure. POS: [facility]
[2019-01-03 21:31] LABS: ALT (SGPT) 7 U/L (8-55); AST (SGOT) 14 U/L (5-34); Albumin 3.4 g/dL (3.5-5.0); Alkaline Phosphatase 94 U/L (40-150); Anion Gap 13 mmol/L (10-20); BUN (Urea Nitrogen) 22 mg/dL (8.4-25.7); Bilirubin, Total 1.2 mg/dL (0.2-1.2); Calc. Creatinine Clearance 0 mL/min (70-130); Calcium 9.1 mg/dL (7.8-10.44); Carbon Dioxide 23 mmol/L (22-29); Chloride 108 mmol/L (98-107); Estimated GFR-MDRD 55; Globulin 3.8 g/dL (2.4-3.5); Glucose 108 mg/dL (70-105); Potassium 4.4 mmol/L (3.5-5.1); Protein, Total 7.2 g/dL (6.0-8.3); Sodium 140 mmol/L (136-145)
[2019-01-03] MEDS ORDERED: Acetaminophen 500 MG TAB ONE (21:39)
[2019-01-03 21:45] LABS: Lipase 64 U/L (8-78)
[2019-01-03 21:46] LABS: CK (CPK) 87 U/L (30-200)
[2019-01-03 21:54] LABS: Bilirubin Negative (Negative); Blood, Urine Negative (Negative); Clarity CLEAR (Clear); Glucose, Urine (Dipstick) Negative (Negative); Leukocyte Negative (Negative); Nitrite Negative (Negative); Protein, Urine (Dipstick) Trace mg/dL (Neg-Trace); Specific Gravity, Urine 1.009 (1.002-1.036); pH, Urine 5.5 (5.0-9.0)
--- NOTE | 2019-01-03 23:32 | CT ---
ABDOMEN CT WITH CONTRAST PELVIC CT WITH CONTRAST: History: Congestive heart failure. Shortness of breath. Progressive swelling in the legs. Abdominal p ain. Correlation: CT angiogram of the chest, 06-20-18 FINDINGS: ABDOMEN CT: There is marked cardiomegaly. There is a small amount of pericardial fluid. The dependent thoracic ao rta and abdominal aorta do demonstrates some atherosclerosis with varying degrees of mild narrowing w ith ulcerative plaques. There does appear to be at least short segment mild to moderate narrowing of the proximal superior mesenteric artery. The celiac artery, visualized bilateral renal arteries, frandy c arteries, and proximal inferior mesenteric arteries appear to be grossly patent. There does appear to be some significant disease involving both internal iliac arteries. There is reflux of contrast into the IVC and hepatic venous system due to right heart failure. Liver is enlarged as is the spleen. There is perisplenic and perihepatic fluid. There is fluid in the gallb ladder fossa. Hypodensities in the portal confluence may represent fluid versus periportal lymphadeno karen. Information Systems Administrator hypodensity measures 1.8 x 1.4 cm. There is symmetric enhancement of both kidneys. Bilaterally, no obstructive uropathy. Exophytic hypod ensity emanates from the right renal cortex and may represent a slightly complex 1.6 cm cyst. There is fluid throughout the mesentery. The amount of fluid is not amendable to percutaneous paracen tesis. No mesenteric free air. Limited evaluation of the alimentary canal due to the lack of oral contrast. Gastric mucosa and duode num are unremarkable. No evidence of bowel obstruction. Ileothecal junction is unremarkable. Normal c aliber appendix. Fecal material in a nondistended, nondilated colon. CT PELVIS: There is free fluid in the pelvis. There is mild mucosal thickening of the urinary bladder wall. Sallie elate clinically for cystitis. Prostate gland is mildly hypertrophic. There is evidence of extensive anasarca/soft tissue edema. No lytic or blastic lesions in the osseous structures. IMPRESSION: 1. Extensive atherosclerotic disease without evidence of high grade stenosis. There appears to be jeff rt segment mild to moderate narrowing of the proximal superior mesenteric artery. 2. Right heart failure. Cardiomegaly. 3. Hepatosplenomegaly. 4. Small amounts of ascites in the abdomen and pelvis. 5. Nonspecific periportal lymph node, incompletely evaluated. 6. Urinary bladder wall prominence. Correlate for cystitis. 7. Fluid in the gallbladder fossa. If there is concern for cholecystitis, consider HIDA scan. POS: [facility]
[2019-01-04 01:16] LABS: Troponin I 0.038 ng/mL (< 0.028)
[2019-01-04 01:55] VITALS: BMI 29.7
[2019-01-04] MEDS ORDERED: Nitroglycerin 2% Ointment 1 INCH/1 GM Packet TOP PRN ×2 (02:39→09:00)
[2019-01-04] MEDS ORDERED: Ondansetron PF 4 MG/2 ML Vial IVP PRN (02:39)
[2019-01-04] MEDS ORDERED: Acetaminophen 325 MG TAB PO PRN ×2 (02:39→08:58)
[2019-01-04] MEDS ORDERED: Ondansetron ODT 4 MG TAB SL PRN (02:39)
[2019-01-04 04:00] LABS: Troponin I 0.025 ng/mL (< 0.028)
[2019-01-04] MEDS ORDERED: PROVENTIL INHALER 6.7 G (200 INHALATIONS) INH PRN (08:55)
[2019-01-04] MEDS ORDERED: Calcium Carbonate 500 MG ChewTAB PO PRN (08:58)
[2019-01-04] MEDS ORDERED: Isosorbide Dinitrate 20 MG TAB PO SCH (09:00)
[2019-01-04] MEDS ORDERED: Furosemide 40 MG/4 ML VIAL SLOW IVP SCH (09:00)
[2019-01-04] MEDS ORDERED: Labetalol HCl 100 MG/20 ML VIAL SLOW IVP PRN (09:00)
[2019-01-04] MEDS ORDERED: Aspirin 325 MG TAB PO SCH (09:00)
[2019-01-04] MEDS ORDERED: Dextrose 5% in Water 1,000 ML IV PRN (09:00)
[2019-01-04] MEDS ORDERED: Carvedilol 6.25 MG TAB PO SCH (09:00)
[2019-01-04] MEDS ORDERED: Dextrose 50% Abboject 50 ML SYRINGE SLOW IVP PRN (09:00)
[2019-01-04] MEDS ORDERED: Insulin Regular 300 UNITS/3 ML VIAL SC PRN (09:00)
[2019-01-04] MEDS: Amiodarone 200 MG TAB PO SCH (09:49)
[2019-01-04] MEDS: Aspirin 81 mg Enteric Coated Tablet PO SCH (09:49)
[2019-01-04] MEDS: Famotidine 20 MG TAB PO SCH ×2 (09:50→20:10)
[2019-01-04] MEDS: hydrALAZINE 25 MG TAB PO SCH ×3 (09:50→20:10)
[2019-01-04] MEDS: Senokot S 8.6-50 MG TAB PO SCH ×2 (09:51→20:10)
[2019-01-04] MEDS: Lisinopril 5 MG TAB PO SCH (09:51)
--- NOTE | 2019-01-04 10:06 | HP ---
PRIMARY CARE PHYSICIAN: [facility]. PRIMARY GOSPEL SINGER: The patient does not see a manager oncology as outpatient. CHIEF COMPLAINT: Abdominal discomfort along with shortness of breath of 3 days duration. HISTORY OF PRESENT ILLNESS: The patient is a 58-year-old male with chronic systolic heart failure, presented to the emergency room with above complaints. Over the last 3 to 4 days, the patient developed gradual worsening chest and abdominal discomfort. The abdominal discomfort was generalized without any aggravating or relieving factor. No nausea, vomiting, diarrhea, or constipation reported. He had a normal bowel movement yesterday. He also has significant shortness of breath that is progressively getting worse. He has been getting short of breath while at rest. He denies recent immobilization, travel, fever, or chills. He also noticed worsening edema in his lower extremity. No fever or chills reported. He also complained of increased abdominal distention. He states that he is compliant with all of his medications including fluid restriction. He was admitted at this facility in November of this year, where his discharge weight was 181 pounds. His weight today is 201 pounds. PAST MEDICAL HISTORY: 1. Chronic systolic heart failure, status post AICD. 2. Diabetes mellitus, type 2. 3. History of ventricular tachycardia. 4. Hypertension. 5. Hyperlipidemia. 6. Chronic obstructive pulmonary disease. 7. Coronary artery disease. 8. History of polysubstance abuse. 9. CKD, stage 3. 10. Chronic anemia. PAST SURGICAL HISTORY: 1. AICD placement. 2. Cardiac catheterization. ALLERGIES: NO KNOWN DRUG ALLERGIES. CURRENT HOME MEDICATIONS: 1. Lasix 40 mg daily. 2. Isordil 20 mg daily. 3. Albuterol inhalers as needed. 4. Amiodarone 200 mg daily. 5. Aspirin 81 mg daily. 6. Carvedilol 6.25 mg b.i.d. 7. Glipizide 5 mg b.i.d. 8. Hydralazine 25 mg three times daily. 9. Lisinopril 5 mg daily. 10. Potassium chloride 20 mEq daily. 11. Aldactone 25 mg daily. SOCIAL HISTORY: The patient currently lives at home. He denies current use of smoking, alcohol, or drug use. He is full code. FAMILY HISTORY: Positive for heart disease and hypertension. REVIEW OF SYSTEMS: All other review of systems were reviewed and were found negative. PHYSICAL EXAMINATION: VITAL SIGNS: In the emergency room showed temperature 97.5, respirations 24, pulse of 68 with a blood pressure of 148/86 with O2 saturation 94% on room air. GENERAL: A 58-year-old male in [id number] distress due to shortness of breath as well as abdominal discomfort. HEENT: Head, atraumatic and normocephalic. Sclerae anicteric. Mucous membranes, no oral lesion. NECK: Supple. JVD elevated. No carotid bruit. LUNGS: Showed bibasilar rales with diffuse rhonchi. No wheezing. There was accessory muscle use. HEART: S1 and S2 present. Regular rate and rhythm. 2/6 systolic murmur over the mitral area. ABDOMEN: Soft, distended, generally tender. No rebound or guarding. No costovertebral angle tenderness. Bowel sounds are present. EXTREMITIES: 2 to 3+ edema in bilateral lower extremities. SKIN: Warm and dry. LYMPH NODES: No palpable lymph nodes in the neck. PERIPHERAL VASCULAR: Radial pulses palpable bilaterally. MUSCULOSKELETAL: No joint swelling or tenderness. LABORATORY FINDINGS: CBC showed WBC 7.2 with hemoglobin 11, hematocrit 36, platelets of 139. Chemistry showed sodium 140, potassium 4.4, chloride 108, bicarb 23, BUN 22, and creatinine 1.56. Troponin 0.038. LFTs in normal range. Lipase was normal. EKG by my review showed sinus rhythm with ST depression in lateral leads. CT scan of the abdomen and pelvis with contrast showed hepatosplenomegaly with small amount of ascites in the abdomen. There was also extensive atherosclerosis without evidence of high-grade stenosis. There was fluid in the gallbladder fossa. Chest x-ray by my review showed pulmonary vascular congestion. IMPRESSION: 1. Acute on chronic systolic and diastolic heart failure exacerbation. ACC stage C. 2. Abdominal discomfort probably secondary to ascites with hepatosplenomegaly. 3. Coronary artery disease, status post stent placement in the past. 4. Status post automatic implantable cardioverter-defibrillator. 5. Hypertension. 6. Diabetes mellitus, type 2. 7. Chronic kidney disease, stage 3. 8. History of polysubstance abuse. Urine drug screen in June of 2018 was positive for cocaine. 9. Weight gain of approximately 20 pounds last month. 10. Chronic obstructive pulmonary disease. 11. History of tobacco abuse. PLAN: The patient will be monitored in the telemetry unit. We will start him on IV Lasix 40 mg every 6 hourly due to extensive fluid overload. We will continue WENDIE inhibitor with Aldactone and beta-blockers. We will also continue hydralazine and nitrate. AICD will be interrogated. We will put him on fluid restriction with vital signs q.4 hourly and monitor intake and output. Cardiology will be consulted. He was extensively counseled on congestive heart failure. His abdominal pain is probably secondary to congestive heart failure. We will continue to monitor. We will start him on insulin sliding scale, reduce the dose of glipizide for now. We will recheck basic metabolic panel later today. Plan was discussed with the patient in detail. He stated understanding. There is some fluid in the gallbladder fossa that is probably secondary to congestive heart failure. There is no significant right upper quadrant tenderness compared to the other quadrants. The patient will probably require 2 to 3 days for stabilization. Job ID: [id number]
[2019-01-04 10:23] LABS: ALT (SGPT) 9 U/L (8-55); AST (SGOT) 17 U/L (5-34); Albumin 3.2 g/dL (3.5-5.0); Alkaline Phosphatase 92 U/L (40-150); Anion Gap 14 mmol/L (10-20); BUN (Urea Nitrogen) 23 mg/dL (8.4-25.7); Bilirubin, Total 1.1 mg/dL (0.2-1.2); Calc. Creatinine Clearance 66 mL/min (70-130); Calcium 8.8 mg/dL (7.8-10.44); Carbon Dioxide 18 mmol/L (22-29); Chloride 109 mmol/L (98-107); Estimated GFR-MDRD 55; Globulin 4.2 g/dL (2.4-3.5); Glucose 157 mg/dL (70-105); Magnesium 2.1 mg/dL (1.6-2.6); Potassium 4.4 mmol/L (3.5-5.1); Protein, Total 7.4 g/dL (6.0-8.3); Sodium 137 mmol/L (136-145)
[2019-01-04 11:53] LABS: Amphetamine Not Detected (NotDetected); Barbiturates Screen Not Detected (NotDetected); Benzodiazepine Screen Not Detected (NotDetected); Cocaine Metabolite Screen Detected (NotDetected); Medtox Control Line Valid? VALID (VALID); Medtox Reader # READER 1; Methadone Not Detected (NotDetected); Methamphetamine Not Detected (NotDetected); Opiate Screen Not Detected (NotDetected); Oxycodone Screen Not Detected (NotDetected); Phencyclidine (PCP) Not Detected (NotDetected); THC/Cannabinoid Screen Not Detected (NotDetected); Tricyclic Screen Not Detected (NotDetected)
[2019-01-04] MEDS: Insulin Regular 300 UNITS/3 ML VIAL SC PRN (12:09)
[2019-01-04] MEDS: Furosemide 40 MG/4 ML VIAL SLOW IVP SCH ×2 (14:11→20:14)
[2019-01-04] MEDS: Isosorbide Dinitrate 20 MG TAB PO SCH ×2 (14:11→20:10)
[2019-01-04] MEDS: DOBUTamine 500 mg/250 ml 250 ML IVPB SCH (14:14)
--- NOTE | 2019-01-04 15:04 | CON ---
DATE OF CONSULTATION: HISTORY OF PRESENT ILLNESS: The patient is an unfortunate 58-year-old gentleman with severe ischemic cardiomyopathy, who presents with dyspnea and lower extremity swelling. The patient has a long history of coronary artery disease. He most recently underwent a cardiac catheterization a few years ago and was found to have severe 3-vessel coronary artery disease. He was referred for possible high- risk coronary artery bypass graft surgery to [place] and the patient declined to undergo the procedure. He subsequently was placed in automatic implantable cardiac defibrillator. The patient has been admitted on multiple occasions for congestive heart failure and unstable angina. The patient states he has been compliant with his medications. He reports recently developing increasing dyspnea. He felt very short of breath and he presented to the emergency room for evaluation. PAST MEDICAL HISTORY: 1. Coronary artery disease. 2. Cardiomyopathy. 3. Hypertension. 4. Dyslipidemia. 5. Diabetes mellitus. 6. Chronic renal insufficiency. PAST SURGICAL HISTORY: None. SOCIAL HISTORY: Long history of cocaine and tobacco abuse. ALLERGIES: NONE. MEDICATIONS: See nursing list. REVIEW OF SYSTEMS: Noticeable for increasing weakness and abdominal discomfort. PHYSICAL EXAMINATION: GENERAL: This is a very ill-appearing gentleman and mild distress. VITAL SIGNS: Blood pressure of 127/64. NECK: Showed jugular venous distention in the jaw. LUNGS: Crackles bilateral. HEART: Regular rate and rhythm. Normal S1 and S2. 1/6 systolic murmur. ABDOMEN: Markedly distended. EXTREMITIES: Showed severe bilateral edema. LABORATORY DATA: Sodium 137, potassium 4.4, chloride 109, bicarbonate 18, BUN 23, creatinine 1.56. Troponin was 0.025. White blood cell count is 7.2, hemoglobin 11.0, hematocrit 36.0, and platelets 139. IMAGING STUDIES: His EKG revealed normal sinus rhythm with a T-wave abnormality suggestive of ischemia and Q-wave suggestive of inferior infarct. IMPRESSION: 1. Congestive heart failure. 2. Severe cardiomyopathy. 3. Severe inoperable three-vessel coronary artery disease. 4. Hypertension. 5. Diabetes mellitus. 6. Chronic renal insufficiency. 7. History of pulmonary embolus. 8. History of illicit substance abuse. This unfortunate gentleman with an end-stage cardiomyopathy presents with congestive heart failure. He has anasarca. We will start the patient on low-dose dobutamine. We will hold his Coreg. The patient' s prognosis is very guarded. Job ID: [id number] [facility]
[2019-01-04 16:34] LABS: Lactic Acid 1.9 mmol/L (0.5-2.2)
[2019-01-04 16:36] LABS: Anion Gap 14 mmol/L (10-20); BUN (Urea Nitrogen) 25 mg/dL (8.4-25.7); Calc. Creatinine Clearance 63 mL/min (70-130); Calcium 9.3 mg/dL (7.8-10.44); Carbon Dioxide 26 mmol/L (22-29); Chloride 105 mmol/L (98-107); Estimated GFR-MDRD 53; Glucose 124 mg/dL (70-105); Sodium 141 mmol/L (136-145)
[2019-01-04] MEDS: Enoxaparin Sodium 40 MG/0.4 ML SYRINGE SC SCH (20:16)
[2019-01-05] MEDS: Furosemide 40 MG/4 ML VIAL SLOW IVP SCH ×2 (02:46→08:39)
[2019-01-05 06:51] LABS: #Eosinphils 0.1 thou/uL (0.0-0.7); #Lymphocytes 1.1 thou/uL (1.20-3.40); #Monocytes 0.9 thou/uL (0.11-0.59); #Neutrophils 5.3 thou/uL (1.40-6.50); %Basophils 0.1 % (0.0-1.0); %Eosinophils 1.2 % (0.0-10.0); %Lymphocytes 14.8 % (21.0-51.0); %Monocytes 12.3 % (0.0-10.0); %Neutrophils 71.6 % (42.0-75.0); Hemoglobin 10.8 g/dL (14.0-18.0); Mean Corpuscular HGB CONC 30.8 g/dL (32.0-36.0); Mean Corpuscular Hemoglobin 28.5 pg (27.0-31.0); Mean Corpuscular Volume 92.5 fL (78.0-98.0); Mean Platelet Volume 10.1 fL (7.4-10.4); Platelet Count 148 thou/uL (130-400); Red Blood Cell (RBC) Count 3.78 mill/uL (4.70-6.10); White Blood Cell (WBC) Count 7.4 thou/uL (4.8-10.8)
[2019-01-05 07:12] LABS: ALT (SGPT) Less than 7 U/L (8-55); AST (SGOT) 14 U/L (5-34); Albumin 3.2 g/dL (3.5-5.0); Alkaline Phosphatase 84 U/L (40-150); Anion Gap 11 mmol/L (10-20); BUN (Urea Nitrogen) 25 mg/dL (8.4-25.7); Bilirubin, Total 1.6 mg/dL (0.2-1.2); Calc. Creatinine Clearance 56 mL/min (70-130); Calcium 9.3 mg/dL (7.8-10.44); Carbon Dioxide 30 mmol/L (22-29); Chloride 104 mmol/L (98-107); Estimated GFR-MDRD 49; Globulin 3.8 g/dL (2.4-3.5); Glucose 121 mg/dL (70-105); Magnesium 1.9 mg/dL (1.6-2.6); Potassium 3.9 mmol/L (3.5-5.1); Sodium 141 mmol/L (136-145)
[2019-01-05] MEDS: glipiZIDE 5 MG TAB PO SCH (08:38)
[2019-01-05] MEDS: Senokot S 8.6-50 MG TAB PO SCH ×2 (08:38→20:44)
[2019-01-05] MEDS: hydrALAZINE 25 MG TAB PO SCH ×4 (08:38→20:44)
[2019-01-05] MEDS: Amiodarone 200 MG TAB PO SCH (08:38)
[2019-01-05] MEDS: Isosorbide Dinitrate 20 MG TAB PO SCH ×3 (08:38→20:44)
[2019-01-05] MEDS: Famotidine 20 MG TAB PO SCH ×2 (08:38→20:44)
[2019-01-05] MEDS: Lisinopril 5 MG TAB PO SCH (08:38)
[2019-01-05] MEDS: Aspirin 81 mg Enteric Coated Tablet PO SCH (08:38)
[2019-01-05] MEDS: Spironolactone 25 MG TAB PO SCH (08:38)
[2019-01-05] MEDS: DOBUTamine 500 mg/250 ml 250 ML IVPB SCH (08:44)
[2019-01-05] MEDS: Insulin Regular 300 UNITS/3 ML VIAL SC PRN (12:28)
--- NOTE | 2019-01-05 14:32 | PDOC.PN ---
- Subjective Encounter Start Date: 01/05/19 Encounter Start Time: 10:30 Patient seen and examined for CHF. SOB and abd discomfort improving. No N/V. No new complaints. No overnight events - Objective Resuscitation Status - Order Detail: 01/04/19 08:58 Resuscitation Status Routine Resuscitation Status: FULL: Full Resuscitation MAR Reviewed: Yes Vital Signs & Weight: Vital Signs (12 hours) Temp Pulse Resp BP BP Pulse Ox 01/05/19 12:00 97.5 F L 76 20 146/66 H 96 01/05/19 10:20 82 20 93 L 01/05/19 09:36 80 156/74 H 01/05/19 08:38 80 156/74 H 01/05/19 08:30 96 01/05/19 08:15 98.3 F 80 16 156/74 H 96 01/05/19 07:10 73 20 93 L 01/05/19 03:15 97.9 F 80 20 161/75 H 97 Weight Weight 191 lb 8 oz I&O: 01/04/19 01/05/19 01/06/19 06:59 06:59 06:59 Intake Total 950 1797.5 Output Total 550 7150 Balance 400 -5352.5 Result Diagrams: 01/05/19 06:21 01/05/19 06:21 Additional Labs: Accuchecks 01/05/19 01/05/19 01/04/19 10:50 03:45 21:15 POC Glucose 181 H 126 H 130 H 01/04/19 17:07 POC Glucose 141 H EKG Reviewed by me: Yes (Tele SR) Phys Exam - Physical Examination Constitutional: NAD Respiratory: no wheezing, no rhonchi Bibasilar rales, Symmetrical Cardiovascular: RRR, no rub no heaves/pulsations Gastrointestinal: soft, non-tender, positive bowel sounds distended Musculoskeletal: edema present Neurological: non-focal, normal sensation, moves all 4 limbs Psychiatric: normal affect, A&O x 3 Dx/Plan - Plan DVT proph w/lovenox, DVT proph w/SCDs IMPRESSION: 1. Acute on chronic systolic and diastolic heart failure exacerbation. ACC stage C. 2. Abdominal discomfort probably secondary to ascites with hepatosplenomegaly. 3. Coronary artery disease, status post stent placement in the past. 4. Status post automatic implantable cardioverter-defibrillator. 5. Hypertension. 6. Diabetes mellitus, type 2. 7. Chronic kidney disease, stage 3. 8. History of polysubstance abuse. Urine drug screen positive for cocaine. 9. Weight gain of approximately 20 pounds last month. 10. Chronic obstructive pulmonary disease. 11. History of tobacco abuse. PLAN: Cont Lasix 80 mg BID On Dobutamine BMP in AM Cont fluid restriction Cont Aldactone Betablockers on hold while on dobutamine drip. Review of Systems - Review of Systems Cardiovascular: orthopnea, edema. negative: chest pain, palpitations, paroxysmal nocturnal dyspnea, light headedness, other Gastrointestinal: negative: Nausea, Vomiting, Abdominal Pain, Diarrhea, Constipation, Melena, Hematochezia, Other Genitourinary: negative: Dysuria, Frequency, Incontinence, Hematuria, Retention , Other - Medications/Allergies Allergies/Adverse Reactions: Allergies Allergy/AdvReac Type Severity Reaction Status Date / Time No Known Allergies Allergy Verified 01/04/19 01:50 Medications: Current Medications Acetaminophen (Tylenol) 650 mg PO Q4H PRN PRN Reason: Headache/Fever/Mild Pain (1-3) Albuterol Sulfate (Proventil Hfa) 2 puff INH Q6H PRN PRN Reason: SOB &/or Wheezing Albuterol/Ipratropium (Duoneb) 3 ml NEB [id number] [facility] Last Admin: 01/05/19 10:20 Dose: 3 ml Albuterol/Ipratropium (Duoneb) 3 ml NEB [id number] PRN PRN Reason: SOB &/or Wheezing Amiodarone HCl (Cordarone) 200 mg PO DAILY [facility] Last Admin: 01/05/19 08:38 Dose: 200 mg Aspirin (Ecotrin) 81 mg PO DAILY [facility] Last Admin: 01/05/19 08:38 Dose: 81 mg Calcium Carbonate (Tums) 1,000 mg PO Q4H PRN PRN Reason: Heartburn or Indigestion Dextrose/Water (Dextrose 50%) 25 gm SLOW IVP PRN PRN PRN Reason: Hypoglycemia Enoxaparin Sodium (Lovenox) 40 mg SC 2100 [facility] Last Admin: 01/04/19 20:16 Dose: 40 mg Famotidine (Pepcid) 20 mg PO BID [facility] Last Admin: 01/05/19 08:38 Dose: 20 mg Furosemide (Lasix) 80 mg SLOW IVP 0600,1400 [facility] Glipizide (Glucotrol) 5 mg PO DAILY-[facility] Last Admin: 01/05/19 08:38 Dose: 5 mg Glucagon (Glucagon) 1 mg IM PRN PRN PRN Reason: Hypoglycemia Hydralazine HCl (Apresoline) 50 mg PO TID [facility] Last Admin: 01/05/19 09:36 Dose: Not Given Dextrose/Water (D5w) 1,000 mls @ 0 mls/hr IV .Q0M PRN PRN Reason: Hypoglycemia Dobutamine HCl/Dextrose (Dobutamine 500 Mg/250 Ml) 250 mls @ 13.703 mls/hr IVPB INF [facility]; Protocol Last Admin: 01/05/19 08:44 Dose: 250 mls Insulin Human Regular (Humulin R) 0 units SC .MILD SLIDING SCALE PRN PRN Reason: Mild Correctional Scale Last Admin: 01/05/19 12:28 Dose: 2 unit Insulin Human Regular (Humulin R) 0 units SC .BEDTIME SLIDING SC PRN PRN Reason: Bedtime Correctional Scale Isosorbide Dinitrate (Isordil) 20 mg PO TID [facility] Last Admin: 01/05/19 08:38 Dose: 20 mg Labetalol HCl (Normodyne) 10 mg SLOW IVP Q4H PRN PRN Reason: Systolic BP > 180 Lisinopril (Zestril) 5 mg PO DAILY [facility] Last Admin: 01/05/19 08:38 Dose: 5 mg Nitroglycerin (Nitro-Bid 2% Ointment) 0.5 inch TOP Q8H PRN PRN Reason: SBP Greater Than 180 Potassium Chloride (Klor-Con) [address] [facility] Last Admin: 01/05/19 08:39 Dose: 20 meq Senna/Docusate Sodium (Senokot S) 1 tab PO BID [facility] Last Admin: 01/05/19 08:38 Dose: 1 tab Sodium Chloride (Flush - Normal Saline) 10 ml IVF Q12HR PRN PRN Reason: Saline Flush Last Admin: 01/05/19 08:39 Dose: 10 ml Spironolactone (Aldactone) [address] [facility] Last Admin: 01/05/19 08:38 Dose: 25 mg
[2019-01-05] MEDS: Furosemide 100 MG/10 ML VIAL SLOW IVP SCH (15:38)
[2019-01-05 17:31] LABS: Anion Gap 12 mmol/L (10-20); BUN (Urea Nitrogen) 23 mg/dL (8.4-25.7); Calc. Creatinine Clearance 59 mL/min (70-130); Calcium 9.7 mg/dL (7.8-10.44); Carbon Dioxide 31 mmol/L (22-29); Chloride 101 mmol/L (98-107); Estimated GFR-MDRD 52; Glucose 83 mg/dL (70-105); Potassium 3.7 mmol/L (3.5-5.1); Sodium 140 mmol/L (136-145)
[2019-01-05] MEDS: Enoxaparin Sodium 40 MG/0.4 ML SYRINGE SC SCH (20:45)
[2019-01-06] MEDS: DOBUTamine 500 mg/250 ml 250 ML IVPB SCH (03:18)
[2019-01-06 05:33] LABS: ALT (SGPT) 7 U/L (8-55); AST (SGOT) 13 U/L (5-34); Albumin 3.2 g/dL (3.5-5.0); Alkaline Phosphatase 83 U/L (40-150); Anion Gap 13 mmol/L (10-20); BUN (Urea Nitrogen) 20 mg/dL (8.4-25.7); Bilirubin, Total 1.8 mg/dL (0.2-1.2); Calc. Creatinine Clearance 63 mL/min (70-130); Calcium 9.3 mg/dL (7.8-10.44); Carbon Dioxide 27 mmol/L (22-29); Chloride 103 mmol/L (98-107); Estimated GFR-MDRD 56; Globulin 3.9 g/dL (2.4-3.5); Glucose 101 mg/dL (70-105); Magnesium 1.8 mg/dL (1.6-2.6); Potassium 3.9 mmol/L (3.5-5.1); Protein, Total 7.1 g/dL (6.0-8.3); Sodium 139 mmol/L (136-145)
[2019-01-06] MEDS: Furosemide 100 MG/10 ML VIAL SLOW IVP SCH (06:43)
[2019-01-06] MEDS: Lisinopril 5 MG TAB PO SCH (08:08)
[2019-01-06] MEDS: Amiodarone 200 MG TAB PO SCH (08:08)
[2019-01-06] MEDS: Famotidine 20 MG TAB PO SCH ×2 (08:09→21:41)
[2019-01-06] MEDS: hydrALAZINE 25 MG TAB PO SCH ×3 (08:09→21:41)
[2019-01-06] MEDS: Spironolactone 25 MG TAB PO SCH (08:09)
[2019-01-06] MEDS: Isosorbide Dinitrate 20 MG TAB PO SCH ×3 (08:09→21:42)
[2019-01-06] MEDS: Aspirin 81 mg Enteric Coated Tablet PO SCH (08:09)
[2019-01-06] MEDS: glipiZIDE 5 MG TAB PO SCH (08:09)
[2019-01-06] MEDS: Senokot S 8.6-50 MG TAB PO SCH ×2 (08:10→21:41)
[2019-01-06] MEDS: Furosemide 40 MG TAB PO SCH (13:12)
--- NOTE | 2019-01-06 15:05 | PDOC.PN ---
- Subjective Encounter Start Date: 01/06/19 Encounter Start Time: 13:00 Patient seen and examined for CHF. SOB improving. No new complaints. No overnight events - Objective Resuscitation Status - Order Detail: 01/04/19 08:58 Resuscitation Status Routine Resuscitation Status: FULL: Full Resuscitation MAR Reviewed: Yes Vital Signs & Weight: Vital Signs (12 hours) Temp Pulse Resp BP Pulse Ox 01/06/19 14:40 81 01/06/19 11:43 98.2 F 81 117/57 L 97 01/06/19 10:47 83 16 94 L 01/06/19 08:09 83 01/06/19 08:08 83 01/06/19 07:30 97.9 F 83 30 H 140/63 96 01/06/19 07:09 78 16 95 01/06/19 04:15 98.3 F 20 97 Weight Weight 177 lb 12.8 oz I&O: 01/05/19 01/06/19 01/07/19 06:59 06:59 06:59 Intake Total 1797.5 1137 Output Total 7150 4050 Balance -5352.5 -2913 Result Diagrams: 01/05/19 06:21 01/06/19 04:52 Additional Labs: Accuchecks 01/06/19 01/05/19 01/05/19 11:09 20:37 16:31 POC Glucose 156 H 125 H 154 H EKG Reviewed by me: Yes (Tele SR) Phys Exam - Physical Examination Constitutional: NAD Respiratory: no wheezing, no rhonchi Cardiovascular: RRR, no rub Gastrointestinal: soft, non-tender, positive bowel sounds Musculoskeletal: edema present (improving) Dx/Plan - Plan DVT proph w/SCDs IMPRESSION: 1. Acute on chronic systolic and diastolic heart failure exacerbation. ACC stage C. 2. Abdominal discomfort probably secondary to ascites with hepatosplenomegaly. 3. Coronary artery disease, status post stent placement in the past. 4. Status post automatic implantable cardioverter-defibrillator. 5. Hypertension. 6. Diabetes mellitus, type 2. 7. Chronic kidney disease, stage 3. 8. History of polysubstance abuse. Urine drug screen positive for cocaine. 9. Weight gain of approximately 20 pounds last month. 10. Chronic obstructive pulmonary disease. 11. History of tobacco abuse. PLAN: Cont PO Lasix Cont ACEI/BB/Aldactone Counselled on CHF BMP in AM Cont fluid restriction Review of Systems - Medications/Allergies Allergies/Adverse Reactions: Allergies Allergy/AdvReac Type Severity Reaction Status Date / Time No Known Allergies Allergy Verified 01/04/19 01:50 Medications: Current Medications Acetaminophen (Tylenol) 650 mg PO Q4H PRN PRN Reason: Headache/Fever/Mild Pain (1-3) Albuterol Sulfate (Proventil Hfa) 2 puff INH Q6H PRN PRN Reason: SOB &/or Wheezing Albuterol/Ipratropium (Duoneb) 3 ml NEB [id number] PRN PRN Reason: SOB &/or Wheezing Amiodarone HCl (Cordarone) 200 mg PO DAILY [facility] Last Admin: 01/06/19 08:08 Dose: 200 mg Aspirin (Ecotrin) 81 mg PO DAILY [facility] Last Admin: 01/06/19 08:09 Dose: 81 mg Atorvastatin Calcium (Lipitor) 40 mg PO HS [facility] Last Admin: 01/06/19 21:41 Dose: 40 mg Calcium Carbonate (Tums) 1,000 mg PO Q4H PRN PRN Reason: Heartburn or Indigestion Carvedilol (Coreg) 6.25 mg PO BID-WM [facility] Last Admin: 01/06/19 16:40 Dose: 6.25 mg Dextrose/Water (Dextrose 50%) 25 gm SLOW IVP PRN PRN PRN Reason: Hypoglycemia Famotidine (Pepcid) 20 mg PO BID [facility] Last Admin: 01/06/19 21:41 Dose: 20 mg Furosemide (Lasix) 40 mg PO 0900,1400 [facility] Last Admin: 01/06/19 13:12 Dose: 40 mg Glipizide (Glucotrol) 5 mg PO DAILY-AC [facility] Last Admin: 01/06/19 08:09 Dose: 5 mg Glucagon (Glucagon) 1 mg IM PRN PRN PRN Reason: Hypoglycemia Hydralazine HCl (Apresoline) 50 mg PO TID [facility] Last Admin: 01/06/19 21:41 Dose: 50 mg Dextrose/Water (D5w) 1,000 mls @ 0 mls/hr IV .Q0M PRN PRN Reason: Hypoglycemia Insulin Human Regular (Humulin R) 0 units SC .MILD SLIDING SCALE PRN PRN Reason: Mild Correctional Scale Last Admin: 03/07/19 16:41 Dose: 2 unit Insulin Human Regular (Humulin R) 0 units SC .BEDTIME SLIDING SC PRN PRN Reason: Bedtime Correctional Scale Isosorbide Dinitrate (Isordil) 20 mg PO TID [facility] Last Admin: 01/06/19 21:42 Dose: 20 mg Labetalol HCl (Normodyne) 10 mg SLOW IVP Q4H PRN PRN Reason: Systolic BP > 180 Lisinopril (Zestril) 5 mg PO DAILY [facility] Last Admin: 01/06/19 08:08 Dose: 5 mg Nitroglycerin (Nitro-Bid 2% Ointment) 0.5 inch TOP Q8H PRN PRN Reason: SBP Greater Than 180 Potassium Chloride (Klor-Con) 20 meq PO [facility] Last Admin: 01/06/19 08:09 Dose: 20 meq Senna/Docusate Sodium (Senokot S) 1 tab PO BID [facility] Last Admin: 01/06/19 21:41 Dose: Not Given Sodium Chloride (Flush - Normal Saline) 10 ml IVF Q12HR PRN PRN Reason: Saline Flush Last Admin: 01/05/19 08:39 Dose: 10 ml Spironolactone (Aldactone) 25 mg PO [facility] Last Admin: 01/06/19 08:09 Dose: 25 mg
[2019-01-06] MEDS: Carvedilol 6.25 MG TAB PO SCH (16:40)
[2019-01-06] MEDS: Insulin Regular 300 UNITS/3 ML VIAL SC PRN (16:41)
[2019-01-06] MEDS ORDERED: Atorvastatin Calcium 40 MG TAB PO SCH (21:00)
[2019-01-07] MEDS ORDERED: Clopidogrel Bisulfate 75 MG TAB ONE (05:43)
[2019-01-07 07:48] LABS: Anion Gap 14 mmol/L (10-20); BUN (Urea Nitrogen) 17 mg/dL (8.4-25.7); Calc. Creatinine Clearance 57 mL/min (70-130); Carbon Dioxide 25 mmol/L (22-29); Chloride 102 mmol/L (98-107); Estimated GFR-MDRD 58; Glucose 177 mg/dL (70-105); Potassium 3.9 mmol/L (3.5-5.1); Sodium 137 mmol/L (136-145)
[2019-01-07 08:00] VITALS: BP 129/71; TEMP 97.9
[2019-01-07] MEDS: Famotidine 20 MG TAB PO SCH (08:47)
[2019-01-07] MEDS: Amiodarone 200 MG TAB PO SCH (08:47)
[2019-01-07] MEDS: Furosemide 40 MG TAB PO SCH (08:48)
[2019-01-07] MEDS: Senokot S 8.6-50 MG TAB PO SCH (08:48)
[2019-01-07] MEDS: Spironolactone 25 MG TAB PO SCH (08:48)
[2019-01-07] MEDS: Carvedilol 6.25 MG TAB PO SCH (08:48)
[2019-01-07] MEDS: glipiZIDE 5 MG TAB PO SCH (08:48)
[2019-01-07] MEDS: Lisinopril 5 MG TAB PO SCH (08:49)
[2019-01-07] MEDS: Isosorbide Dinitrate 20 MG TAB PO SCH (08:49)
[2019-01-07] MEDS: Aspirin 81 mg Enteric Coated Tablet PO SCH (08:49)
--- NOTE | 2019-01-07 10:38 | DIS ---
DATE OF ADMISSION: 01/04/2019 DATE OF DISCHARGE: 01/07/2019 DISCHARGE DISPOSITION: Home. FOLLOWUP: 1. Follow up with primary care physician, Luly Gill, in 1 week. 2. Follow up with Cardiology Dr. Sourav Baig. The patient was extensively counseled on congestive heart failure and importance of fluid restriction and daily weights. Lifestyle modification including cocaine cessation was emphasized. The patient was seen and examined on the day of discharge. Denies any new complaints. No chest pain, shortness of breath or palpitations reported. DISCHARGE MEDICATIONS: 1. Aspirin 81 mg daily. 2. Amiodarone 200 mg daily. 3. Albuterol inhaler as needed. 4. Lipitor 40 mg at bedtime. 5. Carvedilol 6.25 mg b.i.d. 6. Lasix 40 mg twice a day. 7. Glipizide 5 mg b.i.d. 8. Hydralazine 50 mg three times daily. 9. Isosorbide dinitrate 20 mg three times daily. 10. Lisinopril 5 mg daily. 11. Potassium chloride 20 mEq daily. 12. Aldactone 25 mg daily. Repeat basic metabolic profile after 1 week is recommended. Primary care physician is advised to follow. BRIEF HOSPITAL COURSE: The patient is a 58-year-old male with chronic systolic heart failure, presented to the hospital with shortness of breath along with significant abdominal discomfort of 3 days duration. He has also gained more than 20 pounds over the last month. Please refer to the history and physical for further details. The patient was admitted to the hospital with a diagnosis of acute on chronic systolic and diastolic heart failure exacerbation. He showed good improvement with diuretics. He was also started on dobutamine drip due to significant volume overload per Cardiology. His weight on the day of discharge is 168 pounds from 201 pounds. Lasix dose has been increased to 40 mg twice a day. Hydralazine and isosorbide dinitrate dose were also increased. Lifestyle modification was emphasized. He has been cleared by Cardiology for discharge. FINAL DIAGNOSES: 1. Acute on chronic systolic and diastolic heart failure exacerbation, improved. 2. Abdominal discomfort secondary to hepatosplenomegaly/ascites. 3. Coronary artery disease, status post stent placement in the past. 4. Hypertension. 5. Diabetes mellitus, type 2. 6. Chronic kidney disease, stage 3. 7. History of polysubstance abuse. Urine drug screen on this admission was positive for cocaine. 8. Volume overload with 20-pound weight gain over the last month. 9. Chronic obstructive pulmonary disease. 10. History of automatic implantable cardioverter-defibrillator placement. 11. Tobacco dependence. PLAN: Plan was discussed with the patient in detail. He stated understanding. Repeat basic metabolic profile after 1 week is recommended. Primary care physician advised to follow. Job ID: [id number]
[2019-01-07] MEDS: hydrALAZINE 25 MG TAB PO SCH (11:12)
== END 2019-01-07 11:53 | disposition home or self-care (01) | DRG 291 ==
LOC: ERS 20:37 → 2SW 22:35 → OBSVTOIN 01-04 13:00 → 2NO 01-06 18:22
PROVIDERS: ADMIT Hospitalist; ATTEND Hospitalist
DX: I13.0 Hypertensive heart and chronic kidney disease with heart failure and stage 1 through stage 4 chronic kidney disease, or unspecified chronic kidney disease (principal); I50.43 Acute on chronic combined systolic (congestive) and diastolic (congestive) heart failure; R18.8 Other ascites; N18.3 Chronic kidney disease, stage 3 (moderate); E11.22 Type 2 diabetes mellitus with diabetic chronic kidney disease; I25.5 Ischemic cardiomyopathy; E78.5 Hyperlipidemia, unspecified; J44.9 Chronic obstructive pulmonary disease, unspecified; I25.10 Atherosclerotic heart disease of native coronary artery without angina pectoris; R16.2 Hepatomegaly with splenomegaly, not elsewhere classified; D53.9 Nutritional anemia, unspecified; F19.11 Other psychoactive substance abuse, in remission; Z95.810 Presence of automatic (implantable) cardiac defibrillator; Z79.84 Long term (current) use of oral hypoglycemic drugs; Z79.82 Long term (current) use of aspirin; Z79.899 Other long term (current) drug therapy; Z87.891 Personal history of nicotine dependence; Z95.5 Presence of coronary angioplasty implant and graft; Z82.49 Family history of ischemic heart disease and other diseases of the circulatory system; Z86.711 Personal history of pulmonary embolism
CPT/HCPCS: 36415; 36416; 71045; 74177; 80048; 80053; 80306; 81003; 82550; 83605; 83690; 83735; 83880; 84484; 85025; 93005; 93798; 94640; 96374; J1250; J1650; J1815; J1940; J7620; Q9966

== ENCOUNTER 2019-03-04 15:22 | Emergency (ER) | payer MEDICARE | END 2019-03-04 16:11 | disposition home or self-care (01) | LOC: ERS 15:22 | DX: L97.929 Non-pressure chronic ulcer of unspecified part of left lower leg with unspecified severity (principal); I77.2 Rupture of artery; E11.9 Type 2 diabetes mellitus without complications; E78.5 Hyperlipidemia, unspecified; I11.0 Hypertensive heart disease with heart failure; I50.9 Heart failure, unspecified; J44.9 Chronic obstructive pulmonary disease, unspecified; F17.210 Nicotine dependence, cigarettes, uncomplicated; Z79.899 Other long term (current) drug therapy; Z79.51 Long term (current) use of inhaled steroids; Z79.82 Long term (current) use of aspirin | CPT/HCPCS: 99283 ==

== ENCOUNTER 2019-03-05 09:24 | Observation (INO) | payer MEDICARE ==
--- NOTE | 2019-03-05 10:20 | RAD ---
EXAM: XR Chest 1 View Portable PROVIDED CLINICAL HISTORY: Chest pain COMPARISON: 01/03/2019 FINDINGS: Cardiac silhouette remains enlarged. Left subclavian cardiac pacing device is redemonstrated in simil ar position. No focal consolidation, pleural fluid or pneumothorax apparent. IMPRESSION: Cardiomegaly without evidence for an acute cardiopulmonary process.
[2019-03-05 10:21] LABS: Hemoglobin 11.8 g/dL (14.0-18.0); Mean Corpuscular HGB CONC 31.5 g/dL (32.0-36.0); Mean Corpuscular Hemoglobin 29.5 pg (27.0-31.0); Mean Corpuscular Volume 93.5 fL (78.0-98.0); Mean Platelet Volume 9.3 fL (7.4-10.4); Platelet Count 150 thou/uL (130-400); RBC Distribution Width 14.8 % (11.5-14.5); White Blood Cell (WBC) Count 6.7 thou/uL (4.8-10.8)
[2019-03-05 10:26] LABS: INR-International Normal Ratio 1.4; Prothrombin Time 17.2 SEC (12.0-14.7)
[2019-03-05 10:27] LABS: PTT 40.1 SEC (22.9-36.1)
[2019-03-05 10:39] LABS: Burr Cells SLIGHT = 2-5 cells (100X) (0-1/hpf); Eosinophils 3 % (0-10); Hypochromia SLIGHT = 6-15 cells (100X) (0-5/hpf); Large Platelets SLIGHT; Lymphocytes 6 % (21-51); MDiff Complete? YES; Microcytosis SLIGHT = 6-15 cells (100X) (0-5/hpf); Monocytes 12 % (0-10); Neutrophil 75 % (42-75); Platelet Morphology Comment Appears Adequate; Polychromasia SLIGHT = 2-3 cells (100X) (0-2/hpf); Reactive Lymphocytes 4 % (0-10); Schistocytes SLIGHT = 2-5 cells (100X) (0-1/hpf)
[2019-03-05 10:48] LABS: ALT (SGPT) 13 U/L (8-55); AST (SGOT) 14 U/L (5-34); Albumin 3.4 g/dL (3.5-5.0); Alkaline Phosphatase 104 U/L (40-150); Anion Gap 13 mmol/L (10-20); BUN (Urea Nitrogen) 37 mg/dL (8.4-25.7); Bilirubin, Total 1.5 mg/dL (0.2-1.2); Calc. Creatinine Clearance 0 mL/min (70-130); Calcium 8.9 mg/dL (7.8-10.44); Carbon Dioxide 28 mmol/L (22-29); Chloride 103 mmol/L (98-107); Estimated GFR-MDRD 37; Globulin 3.9 g/dL (2.4-3.5); Glucose 88 mg/dL (70-105); Potassium 4.3 mmol/L (3.5-5.1); Protein, Total 7.3 g/dL (6.0-8.3); Sodium 140 mmol/L (136-145)
[2019-03-05 11:02] LABS: CKMB 3.5 ng/mL (0-6.6)
[2019-03-05] MEDS ORDERED: Benzonatate 100 MG CAP PO PRN (12:21)
[2019-03-05] MEDS ORDERED: PROVENTIL INHALER 6.7 G (200 INHALATIONS) INH PRN (12:21)
[2019-03-05] MEDS ORDERED: HYDROcodone/Acetaminophen 5/325 mg Tablet PO PRN (12:21)
[2019-03-05] MEDS ORDERED: Acetaminophen 500 MG TAB PO PRN (12:21)
[2019-03-05] MEDS ORDERED: Ondansetron PF 4 MG/2 ML Vial IVP PRN (12:21)
[2019-03-05] MEDS ORDERED: Ondansetron ODT 4 MG TAB PO PRN (12:21)
[2019-03-05] MEDS ORDERED: Diabetic Tussin 200 MG/10 ML UDCUP PO PRN (12:21)
[2019-03-05] MEDS ORDERED: HumaLOG 300 UNITS/3 ML VIAL SC PRN ×2 (12:21)
[2019-03-05] MEDS ORDERED: hydrALAZINE 20 MG/ML VIAL SLOW IVP PRN (12:21)
[2019-03-05] MEDS ORDERED: Dextrose 5% in Water 1,000 ML IV PRN (12:21)
[2019-03-05] MEDS ORDERED: Dextrose 50% Abboject 50 ML SYRINGE SLOW IVP PRN (12:21)
[2019-03-05] MEDS ORDERED: Sodium Chloride 0.9% 1,000 ML IV SCH (12:30)
[2019-03-05 14:23] VITALS: BMI 26.6
[2019-03-05] MEDS ORDERED: Non-Formulary Item 1 EACH (Hydralazine Hcl [Hydralazine Hcl] 50 MG) PO SCH (15:00)
[2019-03-05] MEDS: Furosemide 40 MG TAB PO SCH (16:08)
[2019-03-05] MEDS: hydrALAZINE 25 MG TAB PO SCH ×2 (16:08→20:43)
[2019-03-05] MEDS: Sodium Chloride 0.9% 1,000 ML IV SCH (16:09)
[2019-03-05] MEDS: Isosorbide Dinitrate 20 MG TAB PO SCH ×2 (16:09→20:44)
[2019-03-05 17:25] LABS: Troponin I 0.029 ng/mL (< 0.028)
--- NOTE | 2019-03-05 17:48 | CON ---
DATE OF CONSULTATION: 03/05/2019 HISTORY OF PRESENT ILLNESS: Mr. Irving was on the observation unit and I was called to see him for "left leg arterial bleed." There was no one on the floor that could give me anymore information other than the patient had a left leg arterial bleed. After arriving in the patient's room, the patient was awake, alert, sitting in bed, getting ready to eat. He states that he was in the emergency department yesterday with a spot on his leg that had started bleeding. He was seen in the emergency department and had his leg wrapped with a Coban and was told to come to [facility] on Thursday. His leg began to hurt today and he called an ambulance. He was brought back to the emergency department. The wound was apparently evaluated in the emergency department and felt to have an arterial bleeder. I looked at the patient's leg and the portion of the leg, which was not wrapped had 3 or 4 areas, which were small punctate areas of skin necrosis. He also had varicosities on his anterior leg. The leg was unwrapped. There was an obvious area that had previously bled and with prepping with Betadine, this began to bleed. This was a varicose vein that was bleeding. There was no arterial component whatsoever. The area around the vein was anesthetized with 1% lidocaine. Two silk [id number] sutures were placed to control the bleeding. A sterile dressing was again applied. The patient tolerated this well and was very appreciative. PAST MEDICAL HISTORY: 1. Coronary artery disease. 2. History of defibrillator placement. 3. Diabetes mellitus. PAST SURGICAL HISTORY: 1. Defibrillator placement. 2. Coronary stents. SOCIAL HISTORY: He does not use any alcohol. He smokes approximately one-half to 1 pack of cigarettes a day. ALLERGIES: NONE. CURRENT MEDICATIONS: 1. Hydralazine 25 mg t.i.d. 2. Coreg 6.25 mg b.i.d. 3. Spironolactone 25 mg daily. 4. Glipizide ER 5 mg daily. 5. Isosorbide 60 mg daily. 6. Amiodarone 200 mg daily. 7. Atorvastatin 40 mg daily. 8. Lasix 40 mg daily. 9. Lisinopril 5 mg daily. 10. Aspirin 81 mg daily. 11. Potassium 75 mg daily. 12. Zocor 40 mg at bedtime. PHYSICAL EXAMINATION: VITAL SIGNS: Pulse is 70 and regular, blood pressure is 135/80. LUNGS: Clear bilaterally. HEART: Rhythm is regular. ABDOMEN: Soft and nontender. EXTREMITIES: As above. There is mild pitting edema bilaterally. ASSESSMENT AND PLAN: As above. The patient, from my standpoint, does not need to be in the hospital. He can follow up with the [facility] for suture removal - I would not remove the suture earlier than a week from now and he may need varicose vein treatment at the [facility]. Job ID: [id number]
--- NOTE | 2019-03-05 18:49 | HP ---
PRIMARY CARE PROVIDER: Luly Costa at the [facility] in [place], [place]. CHIEF COMPLAINT: Left lower extremity pain. HISTORY OF PRESENT ILLNESS: This is a 58-year-old male, who presents to [facility] Emergency Department complaining of persistent left lower extremity pain after being evaluated in the same emergency room on 03/04/2019 for bleeding of a small ulcer on his lateral left lower extremity. The patient states that he was scratching his leg after a fly had bitten him on 03/04/2019, when he suddenly noticed bleeding from the wound. The patient states the blood was shooting out from the wound at which point, he notified EMS personnel. The patient had a pressure dressing applied and was evaluated in the emergency room with control of the hemorrhage with pressure and Surgicel. The patient was released back home where he continued with the lower extremity dressing, however, noted increased bleeding when this was changed for cleaning. The patient also noticed pain in his leg and ankle region below the dressing after it was applied. The patient denied any specific fever, chills, red streaks up his leg, or recent infections. The patient does state he has chronic ulcerations on his lower legs and back, which have not been diagnosed by his primary care provider. The patient has used topical preparations in the past and intermittently noticed red spots appearing that are intermittently pruritic. The patient does admit to chronic aspirin therapy and has been compliant with all of his chronic medications. In the emergency room, the patient was evaluated with left lower extremity bleeding at the ulcer site similar in presentation on 03/04/2019. A pressure wound dressing was applied, and the patient was referred to the Hospitalist Service for evaluation. PAST MEDICAL HISTORY: 1. Chronic combined heart failure. 2. Coronary artery disease, status post cardiac stent placement. 3. Hypertension. 4. Diabetes mellitus type 2. 5. Chronic kidney disease stage 3. 6. History of polysubstance abuse. 7. Chronic obstructive pulmonary disease. 8. Tobacco abuse. 9. Noncompliance. 10. History of ventricular tachycardia, status post AICD placement. PAST SURGICAL HISTORY: 1. Status post AICD placement. 2. Status post cardiac catheterization. CURRENT MEDICATIONS: 1. Albuterol sulfate 2 puffs inhaled q.4 to 6 hours p.r.n. 2. Amiodarone 200 mg p.o. daily. 3. Enteric-coated aspirin 81 mg p.o. daily. 4. Lipitor 40 mg p.o. at bedtime. 5. Coreg 6.25 mg p.o. b.i.d. 6. Lasix 40 mg p.o. daily. 7. Glipizide 5 mg p.o. b.i.d. 8. Hydralazine 50 mg p.o. t.i.d. 9. Isosorbide dinitrate 20 mg p.o. t.i.d. 10. Lisinopril 5 mg p.o. daily. 11. Potassium chloride 20 mEq p.o. daily. 12. Aldactone 25 mg p.o. daily. ALLERGIES: NO KNOWN DRUG ALLERGIES. FAMILY HISTORY: Positive for heart disease and hypertension. SOCIAL HISTORY: The patient resides in [place], [place]. Smokes up to a pack of cigarettes daily. History of cocaine use. No alcohol. REVIEW OF SYSTEMS: CONSTITUTIONAL: Negative for weight loss or gain, ability to conduct usual activities. SKIN: Negative for rash, itching. EYES: Negative for double vision, pain. ENT/MOUTH: Negative for nose bleeding, neck stiffness, pain, tenderness. CARDIOVASCULAR: Negative for palpitations, dyspnea on exertion, orthopnea. RESPIRATORY: Negative for shortness of breath, wheezing, cough, hemoptysis, fever or night sweats. GASTROINTESTINAL: Negative for poor appetite, abdominal pain, heartburn, nausea, vomiting, constipation, or diarrhea. GENITOURINARY: Negative for urgency, frequency, dysuria, nocturia. MUSCULOSKELETAL: Negative for pain, swelling. NEUROLOGIC/PSYCHIATRIC: Negative for anxiety, depression. ALLERGY/IMMUNOLOGIC: Negative for skin rash, bleeding tendency. Otherwise negative except as stated per HPI. PHYSICAL EXAMINATION: VITAL SIGNS: On admission, blood pressure 118/78, pulse 71, respiratory rate 19, temperature 98.3 degrees Fahrenheit, O2 saturation 100% on room air. GENERAL APPEARANCE: This is a 58-year-old male, alert and oriented x3, pleasant, in no acute distress. HEENT: Pupils are equal, round, and reactive to light and accommodation. Extraocular muscles are intact. No scleral icterus. No conjunctival injection. Nares are patent. OP is clear. NECK: Supple. No cervical adenopathy. No thyromegaly. No carotid bruits. No JVD appreciated. Cervical spine with full active and passive range of motion. No meningeal signs noted. CHEST: Diminished breath sounds in the bases bilaterally. Occasional expiratory wheeze. CARDIOVASCULAR: S1 and S2 without noted murmur, rub, or gallop. ABDOMEN: Rounded, soft, nontender, and nondistended. Bowel sounds are positive in all 4 quadrants. There is no hepatosplenomegaly. No abdominal bruits. No rebound or guarding appreciated. EXTREMITIES: Warm and dry with fair turgor. Left lower extremity with pressure dressing in the mid section of the lateral aspect of the left lower extremity. Pulses diminished at the dorsalis pedis and posterior tibial arteries bilaterally. Capillary refill less than 2 seconds. NEUROLOGIC: Cranial nerves 2 through 12 are grossly intact. No focal or lateralizing signs appreciated. PERTINENT LAB AND X-RAY FINDINGS: Sodium 140, potassium 4.3, chloride 103, CO2 of 28, BUN 37, creatinine 2.23, estimated GFR of 37, glucose 88, calcium 8.9, total bilirubin 1.5. LFTs within normal limits. Troponin I 0.036. Albumin 3.4. CBC showed a white blood cell count of 6.7, hemoglobin 12, hematocrit 37, platelet count 150 with 75% neutrophils. PT 17.2, INR 1.4, and PTT 40.1. Portable chest x-ray dated 03/05/2019 showed no acute cardiopulmonary process. Cardiomegaly noted. EKG dated 03/05/2019 by my interpretation shows sinus mechanism with heart rates in the 60s. Normal R-wave progression noted in the precordial leads. T-wave inversion noted in leads V4 through V6. Normal axis. ASSESSMENT AND PLAN: 1. Left lower extremity ulceration with hemorrhage. The patient will be observed on the telemetry unit. We will consult Vascular Surgery Service for evaluation due to likely arterial bleeding. Continue pressure dressing pending evaluation by Surgery Service. Hold aspirin. 2. Acute kidney injury on chronic kidney disease stage 3. Avoid nephrotoxic agents and limit contrast exposure. Hold lisinopril and diuretics. Add intravenous normal saline at 75 mL per hour. Repeat creatinine in the a.m. 3. Tobacco abuse. We will offer smoking cessation resources prior to discharge. 4. Diabetes mellitus type 2. Insulin sliding scale for reflexive coverage. ADA diet. Glipizide 5 mg p.o. b.i.d. 5. Chronic combined congestive heart failure with ejection fraction of 10% to 15%. Compensated currently. Continue medical management. 6. Hypertension. Resume home antihypertensive regimen with exception of lisinopril. Serial blood pressure monitoring. 7. Prophylaxis: Hold SCDs due to lower extremity ulceration. Pepcid 20 mg p.o. b.i.d. 8. Code status is full. Surrogate medical decision maker is the patient's sister. Job ID: [id number]
[2019-03-05] MEDS: glipiZIDE 5 MG TAB PO SCH (20:43)
[2019-03-05] MEDS: Carvedilol 6.25 MG TAB PO SCH (20:43)
[2019-03-05] MEDS ORDERED: Famotidine 20 MG TAB PO SCH (21:00)
[2019-03-05] MEDS ORDERED: Atorvastatin Calcium 40 MG TAB PO SCH (21:00)
[2019-03-06 05:47] LABS: Band 1 % (5-11); Elliptocytes SLIGHT = 2-5 cells (100X) (0-1/hpf); Hemoglobin 11.2 g/dL (14.0-18.0); Hypochromia MODERATE=16-30 cells (100X) (0-5/hpf); Lymphocytes 13 % (21-51); MDiff Complete? YES; Mean Corpuscular Hemoglobin 29.5 pg (27.0-31.0); Mean Corpuscular Volume 92.1 fL (78.0-98.0); Monocytes 15 % (0-10); Neutrophil 69 % (42-75); Platelet Count 165 thou/uL (130-400); Platelet Morphology Comment Appears Adequate; RBC Distribution Width 14.5 % (11.5-14.5); Reactive Lymphocytes 2 % (0-10); Red Blood Cell (RBC) Count 3.79 mill/uL (4.70-6.10); Schistocytes SLIGHT = 2-5 cells (100X) (0-1/hpf); Target Cells SLIGHT = 2-5 cells (100X) (0-1/hpf); White Blood Cell (WBC) Count 7.8 thou/uL (4.8-10.8)
[2019-03-06 05:54] LABS: Anion Gap 11 mmol/L (10-20); BUN (Urea Nitrogen) 31 mg/dL (8.4-25.7); Calc. Creatinine Clearance 50 mL/min (70-130); Calcium 8.9 mg/dL (7.8-10.44); Carbon Dioxide 25 mmol/L (22-29); Chloride 102 mmol/L (98-107); Estimated GFR-MDRD 46; Glucose 88 mg/dL (70-105); Potassium 3.9 mmol/L (3.5-5.1); Sodium 134 mmol/L (136-145)
[2019-03-06] MEDS ORDERED: Amiodarone 200 MG TAB PO SCH (09:00)
[2019-03-06] MEDS: Carvedilol 6.25 MG TAB PO SCH (09:08)
[2019-03-06] MEDS: Isosorbide Dinitrate 20 MG TAB PO SCH (09:09)
[2019-03-06] MEDS: glipiZIDE 5 MG TAB PO SCH (09:09)
[2019-03-06] MEDS: Furosemide 40 MG TAB PO SCH (09:09)
[2019-03-06] MEDS: hydrALAZINE 25 MG TAB PO SCH (09:09)
[2019-03-06] MEDS: Sodium Chloride 0.9% 1,000 ML IV SCH (09:15)
[2019-03-06 12:05] VITALS: BP 107/53; TEMP 97.2
[2019-03-06] MEDS ORDERED: Famotidine 20 MG TAB PO SCH (21:00)
--- NOTE | 2019-03-06 21:15 | DIS ---
DATE OF ADMISSION: 03/05/2019 DATE OF DISCHARGE: 03/06/2019 DISCHARGE DIAGNOSES: 1. Left lower extremity ulceration with hemorrhage from varicose vein, resolved. 2. Acute kidney injury on chronic kidney disease stage 3, improved. 3. Tobacco abuse. 4. Diabetes mellitus type 2, insulin requiring. 5. Hypertension, stable. CONSULTATIONS: Dr. Gibson Jimenez with Vascular Surgery Service. PERTINENT LAB AND X-RAY FINDINGS: Creatinine ranged between 1.85 to 2.23. Estimated GFR ranged between 37 to 46. Troponin I ranged between 0.029 to 0.040. CBC showed hemoglobin ranged between 11.2 to 11.8. Portable chest x-ray dated 03/05/2019, showed cardiomegaly without acute process. HOSPITAL COURSE: The patient was placed in observation status after presenting with left lower extremity ulceration with hemorrhage, initially suspected arterial source. However, upon further evaluation by Vascular Surgery, was noted varicose vein source. The patient underwent primary closure of the varicose vein bleed of the left lower extremity on 03/05/2019 without complication. Local wound dressing was applied with recommendations for suture removal in approximately 1 week. The patient overall remained clinically stable during the hospital course, receiving IV fluids for mild acute kidney injury in the context of chronic kidney disease. I have examined the patient at the time of discharge and discussed followup instructions. The patient is overall clinically stable and ready for discharge on 03/06/2019. DISCHARGE MEDICATIONS: 1. Lisinopril 20 mg 1 tablet p.o. daily. 2. K-Dur 80 mEq p.o. daily. 3. Enteric-coated aspirin 81 mg p.o. daily. 4. Coreg 6.25 mg p.o. b.i.d. 5. Lasix 40 mg p.o. b.i.d. 6. Glipizide 5 mg p.o. b.i.d. FOLLOWUP: The patient may follow up with his primary care provider Luly oCsta within 3-5 days after discharge. The patient may follow up with Lisa Lindo with the outpatient [facility]. CONDITION ON DISCHARGE: Stable. ACTIVITY: Ad-gustavo. DIET: ADA. SPECIAL INSTRUCTIONS: Follow up with outpatient Wound Care Service for suture removal in 1 week. CODE STATUS: Full. DISPOSITION: To home, 03/06/2019. Job ID: [id number]
== END 2019-03-06 14:24 | disposition home or self-care (01) ==
LOC: ERS 09:24 → 2SW 11:41
PROVIDERS: ADMIT Family Medicine; ATTEND Family Medicine
DX: I83.028 Varicose veins of left lower extremity with ulcer other part of lower leg (principal); L97.829 Non-pressure chronic ulcer of other part of left lower leg with unspecified severity; I13.0 Hypertensive heart and chronic kidney disease with heart failure and stage 1 through stage 4 chronic kidney disease, or unspecified chronic kidney disease; E11.22 Type 2 diabetes mellitus with diabetic chronic kidney disease; N18.3 Chronic kidney disease, stage 3 (moderate); I50.82 Biventricular heart failure; N17.9 Acute kidney failure, unspecified; F17.210 Nicotine dependence, cigarettes, uncomplicated; Z79.84 Long term (current) use of oral hypoglycemic drugs; Z79.899 Other long term (current) drug therapy; Z91.19 Patient's noncompliance with other medical treatment and regimen; Z95.0 Presence of cardiac pacemaker
CPT/HCPCS: 71045; 80048; 80053; 82553; 82962 ×2; 84484 ×2; 85007; 85025; 85027; 85610; 85730; 93005; 96360; 96361 ×2; 99285; G0378 ×2; 36415; 36416

== ENCOUNTER 2019-03-15 16:20 | Inpatient (IN) | payer MEDICARE ==
[2019-03-15 17:12] LABS: #Basophils 0.1 thou/uL (0.0-0.2); #Eosinphils 0.1 thou/uL (0.0-0.7); #Lymphocytes 1.7 thou/uL (1.20-3.40); #Neutrophils 5.9 thou/uL (1.40-6.50); %Basophils 0.7 % (0.0-1.0); %Eosinophils 1.2 % (0.0-10.0); %Lymphocytes 19.5 % (21.0-51.0); %Monocytes 11.7 % (0.0-10.0); Hemoglobin 11.4 g/dL (14.0-18.0); Mean Corpuscular Hemoglobin 29.2 pg (27.0-31.0); Mean Corpuscular Volume 94.2 fL (78.0-98.0); Mean Platelet Volume 9.3 fL (7.4-10.4); Platelet Count 203 thou/uL (130-400); RBC Distribution Width 14.7 % (11.5-14.5); Red Blood Cell (RBC) Count 3.91 mill/uL (4.70-6.10); White Blood Cell (WBC) Count 8.8 thou/uL (4.8-10.8)
--- NOTE | 2019-03-15 17:12 | RAD ---
CHEST ONE VIEW: 03/15/19 HISTORY: Dyspnea. Comparison radiograph 03/05/19. FINDINGS: The heart size is enlarged. Mild edema. Trace effusions. No pneumothorax. Single lead defibrillator is in place. IMPRESSION: Mild decompensated congestive heart failure. POS: CET
[2019-03-15 17:34] LABS: ALT (SGPT) 7 U/L (8-55); AST (SGOT) 10 U/L (5-34); Albumin 3.3 g/dL (3.5-5.0); Alkaline Phosphatase 91 U/L (40-150); Anion Gap 14 mmol/L (10-20); BUN (Urea Nitrogen) 26 mg/dL (8.4-25.7); Bilirubin, Total 1.6 mg/dL (0.2-1.2); Calc. Creatinine Clearance 0 mL/min (70-130); Calcium 9.2 mg/dL (7.8-10.44); Carbon Dioxide 25 mmol/L (22-29); Chloride 104 mmol/L (98-107); Estimated GFR-MDRD 51; Globulin 4.4 g/dL (2.4-3.5); Glucose 106 mg/dL (70-105); Potassium 4.7 mmol/L (3.5-5.1); Protein, Total 7.7 g/dL (6.0-8.3); Sodium 138 mmol/L (136-145)
[2019-03-15 17:54] LABS: CKMB 1.4 ng/mL (0-6.6)
[2019-03-15] MEDS ORDERED: Furosemide 20 MG/2 ML VIAL ONE (18:30)
[2019-03-15] MEDS ORDERED: Nitroglycerin 2% Ointment 1 INCH/1 GM Packet ONE (18:30)
[2019-03-15 23:39] VITALS: BMI 26.1
[2019-03-16] MEDS ORDERED: Furosemide 40 MG/4 ML VIAL SLOW IVP SCH (06:00)
[2019-03-16] MEDS: Carvedilol 6.25 MG TAB PO SCH ×2 (09:48→17:29)
[2019-03-16] MEDS: Aspirin 81 mg Enteric Coated Tablet PO SCH (09:48)
[2019-03-16] MEDS: glipiZIDE 5 MG TAB PO SCH ×2 (09:49→17:29)
[2019-03-16] MEDS: Lisinopril 20 MG TAB PO SCH (09:49)
[2019-03-16] MEDS: Potassium Chloride 20 MEQ TAB PO SCH (09:49)
[2019-03-16] MEDS ORDERED: Dextrose 50% Abboject 50 ML SYRINGE SLOW IVP PRN (12:37)
[2019-03-16] MEDS ORDERED: Vancomycin HCl 1 GM in Premix Bag 1 BAG IVPB SCH (12:37)
[2019-03-16] MEDS ORDERED: hydrALAZINE 20 MG/ML VIAL SLOW IVP PRN (12:37)
[2019-03-16] MEDS ORDERED: cloNIDine 0.1 MG TAB PO PRN (12:37)
[2019-03-16] MEDS ORDERED: Ondansetron PF 4 MG/2 ML Vial IVP PRN (12:37)
[2019-03-16] MEDS ORDERED: Ondansetron ODT 4 MG TAB PO PRN (12:37)
[2019-03-16] MEDS ORDERED: Dextrose 5% in Water 1,000 ML IV PRN (12:37)
[2019-03-16] MEDS: Furosemide 40 MG/4 ML VIAL SLOW IVP SCH ×2 (14:04→19:34)
[2019-03-16] MEDS: HumaLOG 300 UNITS/3 ML VIAL SC PRN (17:29)
[2019-03-16] MEDS: Piperacillin/Tazobactam 2.25 GM in Sodium Chloride 0.9% 100 ML IVPB SCH (18:09)
--- NOTE | 2019-03-16 19:09 | HP ---
PRIMARY CARE PROVIDER: MASSIMO Newell CHIEF COMPLAINT: Left leg pains and swelling. HISTORY OF PRESENT ILLNESS: This is a 58-year-old male, who presents to [facility] complaining of bilateral lower extremity swelling with pain to the left lower extremity after recent admission on 03/05 through 03/06/2019 for repair of small ulceration with associated hemorrhage. The patient was evaluated during the 03/05 admission for small ulceration and varicose vein bleeding, repaired with primary closure with sutures. The patient was instructed to follow up in 1 week for removal of the sutures, however, he did not follow up in 1 week and the sutures remain in place. The patient also admits to increasing swelling of his lower extremities as well as persistent shortness of breath in the context of known systolic and diastolic congestive heart failure. The patient states he has been compliant with his Lasix taking 40 mg twice daily. However, he has noted swelling increasing in his lower extremities. The patient continues to smoke cigarettes up to a pack a day despite his chronic medical conditions, heart disease and heart failure. The patient denied any documented fever, chills, or travel history. The patient states he has noticed pain in the left lower extremity near the previous suture placement, but no specific drainage or fluid collection. The patient denied taking any specific home remedies for pain and rated the pain as 8/10 initially in the emergency room. In the emergency room, the patient underwent general evaluation including chest imaging showing pulmonary edema with elevated BNP of 6900, previously noted 3500 on 01/03/2019. The patient received IV Lasix in the emergency room as well as transdermal nitroglycerin. PAST MEDICAL HISTORY: 1. Chronic systolic/diastolic congestive heart failure. 2. Coronary artery disease, status post cardiac stent placement. 3. Hypertension. 4. Diabetes mellitus, type 2. 5. Chronic kidney disease, stage 3. 6. Polysubstance abuse. 7. Chronic obstructive pulmonary disease. 8. Tobacco abuse, ongoing. 9. Noncompliance. 10. History of ventricular tachycardia, status post AICD placement. PAST SURGICAL HISTORY: 1. Status post AICD placement. 2. Status post cardiac catheterization. CURRENT MEDICATIONS: 1. Albuterol sulfate 2 puffs inhaled q.4 to 6 hours p.r.n. 2. Amiodarone 200 mg p.o. daily. 3. Enteric-coated aspirin 81 mg p.o. daily. 4. Lipitor 40 mg p.o. at bedtime. 5. Coreg 6.25 mg p.o. b.i.d. 6. Lasix 40 mg p.o. b.i.d. 7. Glipizide 5 mg p.o. b.i.d. 8. Hydralazine 50 mg p.o. t.i.d. 9. Isosorbide dinitrate 20 mg p.o. t.i.d. 10. Lisinopril 5 mg p.o. daily. 11. Potassium chloride 20 mEq p.o. daily. 12. Aldactone 25 mg p.o. daily. ALLERGIES: NO KNOWN DRUG ALLERGIES. FAMILY HISTORY: Positive for hypertension and coronary artery disease. SOCIAL HISTORY: Resident of [place], [place]. Smokes up to a pack of cigarettes daily. History of cocaine use. No current alcohol. REVIEW OF SYSTEMS: CONSTITUTIONAL: Negative for weight loss or gain, ability to conduct usual activities. SKIN: Negative for rash, itching. EYES: Negative for double vision, pain. ENT/MOUTH: Negative for nose bleeding, neck stiffness, pain, tenderness. CARDIOVASCULAR: Negative for palpitations, dyspnea on exertion, orthopnea. RESPIRATORY: Negative for shortness of breath, wheezing, cough, hemoptysis, fever or night sweats. GASTROINTESTINAL: Negative for poor appetite, abdominal pain, heartburn, nausea, vomiting, constipation, or diarrhea. GENITOURINARY: Negative for urgency, frequency, dysuria, nocturia. MUSCULOSKELETAL: Negative for pain, swelling. NEUROLOGIC/PSYCHIATRIC: Negative for anxiety, depression. ALLERGY/IMMUNOLOGIC: Negative for skin rash, bleeding tendency. Otherwise negative except as stated per HPI. PHYSICAL EXAMINATION: VITAL SIGNS: On admission, blood pressure 131/81, pulse 75, respiratory rate 20, temperature 97.5 degrees Fahrenheit, and O2 saturation 100% on 2 L/minute by nasal cannula. GENERAL APPEARANCE: This is a 58-year-old male, alert and oriented x3, pleasant, in mild distress. HEENT: Pupils are equal, round, reactive to light and accommodation. Extraocular muscles are intact. No scleral icterus. No conjunctival injection. Nares patent. OP is clear. Teeth in poor repair with multiple missing teeth and periodontal disease noted. NECK: Supple. No cervical adenopathy. No thyromegaly. No carotid bruits. No JVD appreciated. Cervical spine with full active and passive range of motion. No meningeal signs noted. CHEST: Diminished breath sounds bilaterally with occasional expiratory wheeze. CARDIOVASCULAR: S1 and S2 with distant heart sounds. No murmur, rub, or gallop appreciated. ABDOMEN: Protuberant, soft, and nondistended. Bowel sounds are positive in all 4 quadrants. No palpable mass. No rebound or guarding noted. EXTREMITIES: Warm and dry with fair turgor. Pitting edema to the proximal shins bilaterally. Mild erythema noted to the left lower extremity from mid lateral arreola to the dorsum of the foot. Diminished pulses at the dorsalis pedis and posterior tibial arteries bilaterally. Capillary refill is less than 2 seconds. Warm to touch. Retained sutures noted in the lateral aspect of the left lower extremity. NEUROLOGIC: Cranial nerves 2 through 12 are grossly intact. No focal or lateralizing signs appreciated. PERTINENT LAB AND X-RAY FINDINGS: Sodium 138, potassium 4.7, chloride 104, CO2 of 25, BUN 26, creatinine 1.69, estimated GFR 51, glucose 106, calcium 9.2, total bilirubin 1.6, AST 10, ALT of 7, and alkaline phosphatase 91. Troponin I 0.038. BNP 6920, previously noted 3582 on 01/03/2019. CBC showed a white blood cell count of 8.8, hemoglobin of 11, hematocrit 37, and platelet count 203 with 67% neutrophils. Portable chest x-ray dated 03/15/2019 showed mild pulmonary edema. EKG dated 03/15/2019 by my interpretation shows sinus mechanism with heart rates in the 70s. Normal R-wave progression noted in the precordial leads. T-wave inversion in V4 through V6, similar in appearance to prior EKG of 03/2019. No acute ST-T wave changes appreciated. ASSESSMENT AND PLAN: 1. Acute on chronic combined systolic and diastolic congestive heart failure exacerbation. The patient will be observed on the telemetry unit. Continue Lasix 40 mg IV q.6 hours. Follow daily weights and intake and output. Previous 2D transthoracic echocardiogram on 08/21/2018 showed ejection fraction of 10% to 15%. Repeat BNP in the a.m. 2. Acute dyspnea secondary to acute on chronic combined systolic and diastolic congestive heart failure exacerbation. Continue supportive management as outlined in #1. Oxygen supplementation to maintain O2 saturations greater than equal to 90%. 3. Chronic kidney disease, stage 3. Avoid nephrotoxic agents and limit contrast exposure. Serial creatinine monitoring in the context of increased diuretic therapy. 4. Diabetes mellitus, type 2. Insulin sliding scale for reflexive coverage. Confirm home regimen and resume glipizide 5 mg p.o. b.i.d. Serial Accu-Cheks before meals and at bedtime. ADA diet. 5. Chronic obstructive pulmonary disease. No specific evidence of exacerbation. Tobacco cessation counseling. DuoNebs q.4 hours p.r.n. 6. Left lower extremity ulcer, status post primary closure after varicose bleeding. Consult Wound Care Service for evaluation and local care. Plan for suture removal. 7. Tobacco abuse, ongoing. We will provide resources prior to discharge. 8. Prophylaxis. Hold sequential compression devices due to lower extremity edema. Pepcid 20 mg p.o. b.i.d. 9. Code status is full. Surrogate medical decision maker is the patient's sister. Job ID: [id number]
[2019-03-16] MEDS: Benzonatate 100 MG CAP PO PRN (20:10)
[2019-03-16] MEDS: Famotidine 20 MG TAB PO SCH (20:10)
[2019-03-16] MEDS: Acetaminophen 500 MG TAB PO PRN (20:10)
[2019-03-17] MEDS: Furosemide 40 MG/4 ML VIAL SLOW IVP SCH ×5 (00:26→23:34)
[2019-03-17] MEDS: Piperacillin/Tazobactam 2.25 GM in Sodium Chloride 0.9% 100 ML IVPB SCH ×5 (00:26→23:34)
[2019-03-17] MEDS: Acetaminophen 500 MG TAB PO PRN ×2 (05:59→12:40)
[2019-03-17 06:45] LABS: Hemoglobin 11.3 g/dL (14.0-18.0); Mean Corpuscular HGB CONC 31.3 g/dL (32.0-36.0); Mean Corpuscular Hemoglobin 29.1 pg (27.0-31.0); Mean Corpuscular Volume 92.8 fL (78.0-98.0); Mean Platelet Volume 10.1 fL (7.4-10.4); Platelet Count 203 thou/uL (130-400); RBC Distribution Width 14.7 % (11.5-14.5); White Blood Cell (WBC) Count 9.2 thou/uL (4.8-10.8)
[2019-03-17 07:12] LABS: Anion Gap 14 mmol/L (10-20); BUN (Urea Nitrogen) 31 mg/dL (8.4-25.7); Calc. Creatinine Clearance 48 mL/min (70-130); Calcium 9.4 mg/dL (7.8-10.44); Carbon Dioxide 26 mmol/L (22-29); Chloride 103 mmol/L (98-107); Estimated GFR-MDRD 45; Glucose 120 mg/dL (70-105); Sodium 139 mmol/L (136-145)
[2019-03-17 08:56] LABS: Band 1 % (5-11); Burr Cells SLIGHT = 2-5 cells (100X) (0-1/hpf); Eosinophils 1 % (0-10); Lymphocytes 20 % (21-51); MDiff Complete? YES; Monocytes 5 % (0-10); Neutrophil 72 % (42-75); Platelet Morphology Comment Appears Adequate; Reactive Lymphocytes 1 % (0-10)
--- NOTE | 2019-03-17 09:56 | PDOC.PN ---
- Subjective Encounter Start Date: 03/17/19 Encounter Start Time: 09:50 Subjective: f/u for CHF and LLE cellulitis with retained sutures. Feels a little better -: today but LLE painful with ambulating. - Objective Resuscitation Status - Order Detail: 03/16/19 12:28 Resuscitation Status Routine Resuscitation Status: FULL: Full Resuscitation MAR Reviewed: Yes Vital Signs & Weight: Vital Signs (12 hours) Temp Pulse Resp BP Pulse Ox 03/17/19 07:49 97.9 F 69 20 132/78 96 03/17/19 04:00 97.5 F L 66 20 143/84 H 98 03/17/19 00:00 97.9 F 70 20 132/83 94 L Weight Admit Weight 177 lb 1.6 oz Weight 175 lb 6.4 oz I&O: 03/16/19 03/17/19 03/18/19 06:59 06:59 06:59 Intake Total 785 1900 Output Total 275 2850 Balance 510 -950 Result Diagrams: 03/17/19 04:58 03/17/19 04:58 Additional Labs: Accuchecks 03/17/19 03/16/19 03/16/19 06:08 20:49 16:50 POC Glucose 103 121 H 227 H 03/16/19 12:00 POC Glucose 247 H Laboratory Tests 03/15/19 03/15/19 03/17/19 17:02 17:02 04:58 Creatinine 1.69 H B-Natriuretic Peptide 6919.8 H 6633.0 H EKG Reviewed by me: Yes (Tele - SR) Phys Exam - Physical Examination Constitutional: NAD alert, responsive HEENT: PERRLA, sclera anicteric, oral pharynx no lesions Neck: no nodes, no JVD, supple, full ROM diminished bilat, bibasilar crackles, few exp wheezes S1, S2 with distant heart sounds Cardiovascular: RRR, no significant murmur, no rub, gallop Gastrointestinal: soft, non-tender, no distention, positive bowel sounds LLE with edema, erythema laterally to dorsum of foot Musculoskeletal: pulses present, edema present Neurological: normal sensation, moves all 4 limbs Psychiatric: A&O x 3 Skin: normal turgor, cap refill <2 seconds Dx/Plan (1) Acute on chronic systolic ACC/AHA stage C congestive heart failure Code(s): I50.23 - ACUTE ON CHRONIC SYSTOLIC (CONGESTIVE) HEART FAILURE Status : Acute Comment: EF 10-15%, continue Lasix 40mg IV q6h, serial I/O's, daily weights (2) Dyspnea Code(s): R06.00 - DYSPNEA, UNSPECIFIED Status: Acute Comment: Multifactorial due to CHF, COPD, supportive (3) Lower extremity ulceration Code(s): L97.909 - NON-PRS CHRONIC ULC UNSP PRT OF UNSP LOW LEG W UNSP SEVERITY Status: Acute Qualifiers: Laterality: left Comment: Continue Zosyn/Vancomycin, WCT for local care, sutures removed (4) CKD (chronic kidney disease) stage 3, GFR 30-59 ml/min Status: Chronic Comment: Avoid nephrotoxic meds and limit contrast exposure (5) COPD (chronic obstructive pulmonary disease) Status: Chronic Qualifiers: Emphysema type: unspecified Comment: Continue Duonebs, add Dulera 2 puffs BID (6) DM type 2 (diabetes mellitus, type 2) Status: Chronic Qualifiers: Comment: Continue Glipizide, ISS, ADA (7) Noncompliance with medication regimen Code(s): Z91.14 - PATIENT'S OTHER NONCOMPLIANCE WITH MEDICATION REGIMEN Status : Chronic (8) Tobacco abuse Code(s): Z72.0 - TOBACCO USE Status: Chronic Comment: Tobacco cessation resources - Plan continue antibiotics, social media project manager, out of bed/ambulate Stable currently -: Convert to inpt status due to need for IV abx and further IV Lasix -: Add Vancomycin 500mg IV q12h -: Continue Zosyn -: WCT for local care * AM lab: BMP
[2019-03-17] MEDS: Aspirin 81 mg Enteric Coated Tablet PO SCH (10:07)
[2019-03-17] MEDS: glipiZIDE 5 MG TAB PO SCH ×2 (10:07→16:24)
[2019-03-17] MEDS: Lisinopril 20 MG TAB PO SCH (10:07)
[2019-03-17] MEDS: Carvedilol 6.25 MG TAB PO SCH ×2 (10:07→16:24)
[2019-03-17] MEDS: Famotidine 20 MG TAB PO SCH ×2 (10:07→20:18)
[2019-03-17] MEDS: Potassium Chloride 20 MEQ TAB PO SCH (10:15)
[2019-03-17] MEDS ORDERED: Mometasone/Formoterol 120 PUFF INHALER INH SCH (11:00)
[2019-03-17] MEDS: HumaLOG 300 UNITS/3 ML VIAL SC PRN (11:35)
[2019-03-17] MEDS: Benzonatate 100 MG CAP PO PRN (12:40)
[2019-03-17] MEDS: Mometasone/Formoterol 120 PUFF INHALER INH SCH (19:04)
[2019-03-17] MEDS ORDERED: VANCOMYCIN HCL IVPB SCH (21:00)
[2019-03-17] MEDS: Vancomycin HCl 500 MG in Sodium Chloride 0.9% 100 ML IVPB SCH (21:03)
[2019-03-18] MEDS: Piperacillin/Tazobactam 2.25 GM in Sodium Chloride 0.9% 100 ML IVPB SCH ×3 (05:00→17:58)
[2019-03-18 06:11] LABS: Anion Gap 14 mmol/L (10-20); BUN (Urea Nitrogen) 30 mg/dL (8.4-25.7); Calc. Creatinine Clearance 52 mL/min (70-130); Calcium 9.6 mg/dL (7.8-10.44); Carbon Dioxide 30 mmol/L (22-29); Chloride 100 mmol/L (98-107); Estimated GFR-MDRD 46; Glucose 126 mg/dL (70-105); Potassium 4.1 mmol/L (3.5-5.1); Sodium 140 mmol/L (136-145)
[2019-03-18] MEDS: Acetaminophen 500 MG TAB PO PRN (06:15)
[2019-03-18] MEDS: Mometasone/Formoterol 120 PUFF INHALER INH SCH ×2 (07:14→18:19)
[2019-03-18] MEDS: Furosemide 40 MG/4 ML VIAL SLOW IVP SCH ×3 (08:04→20:27)
[2019-03-18] MEDS: glipiZIDE 5 MG TAB PO SCH ×2 (08:04→17:58)
[2019-03-18] MEDS: Famotidine 20 MG TAB PO SCH ×2 (08:04→20:27)
[2019-03-18] MEDS: Aspirin 81 mg Enteric Coated Tablet PO SCH (08:04)
[2019-03-18] MEDS: Carvedilol 6.25 MG TAB PO SCH ×2 (08:04→17:58)
[2019-03-18] MEDS: Lisinopril 20 MG TAB PO SCH (08:04)
[2019-03-18] MEDS: Vancomycin HCl 500 MG in Sodium Chloride 0.9% 100 ML IVPB SCH ×2 (09:33→20:27)
--- NOTE | 2019-03-18 11:58 | PDOC.PN ---
- Subjective Encounter Start Date: 03/18/19 Encounter Start Time: 11:45 Subjective: f/u for LLE cellulitis on Zosyn/Vanc with persistent swelling and pain. -: Less SOB today with IV Lasix. - Objective Resuscitation Status - Order Detail: 03/16/19 12:28 Resuscitation Status Routine Resuscitation Status: FULL: Full Resuscitation MAR Reviewed: Yes Vital Signs & Weight: Vital Signs (12 hours) Temp Pulse Resp BP Pulse Ox 03/18/19 11:10 98.2 F 61 18 140/73 99 03/18/19 07:33 98.2 F 69 20 146/72 H 99 03/18/19 07:30 99 03/18/19 07:16 94 L 03/18/19 07:14 70 16 94 L 03/18/19 04:00 97.6 F 68 20 136/80 100 Weight Admit Weight 177 lb 1.6 oz Weight 185 lb 4 oz I&O: 03/17/19 03/18/19 03/19/19 06:59 06:59 06:59 Intake Total 1900 1510 Output Total 2850 4025 Balance -950 -2515 Result Diagrams: 03/17/19 04:58 03/18/19 05:12 Additional Labs: Accuchecks 03/18/19 03/18/19 03/17/19 10:33 06:06 17:16 POC Glucose 139 H 157 H 131 H Laboratory Tests 03/15/19 03/15/19 03/17/19 17:02 17:02 04:58 Creatinine 1.69 H B-Natriuretic Peptide 6919.8 H 6633.0 H EKG Reviewed by me: Yes (Tele - SR) Phys Exam - Physical Examination Constitutional: NAD HEENT: PERRLA, sclera anicteric, oral pharynx no lesions Neck: no nodes, no JVD, supple, full ROM diminished in bases, few basilar crackles and wheezing S1, S2 Cardiovascular: RRR, no significant murmur, no rub, gallop Gastrointestinal: soft, non-tender, no distention, positive bowel sounds LLE with TTP over small ulcer laterally, +edema and fluctuance distally to dorsum of foot Musculoskeletal: pulses present, edema present Neurological: normal sensation, moves all 4 limbs Psychiatric: A&O x 3 Skin: normal turgor, cap refill <2 seconds Dx/Plan (1) Acute on chronic systolic ACC/AHA stage C congestive heart failure Code(s): I50.23 - ACUTE ON CHRONIC SYSTOLIC (CONGESTIVE) HEART FAILURE Status : Acute Comment: EF 10-15%, continue Lasix 40mg IV q6h, serial I/O's, daily weights (2) Dyspnea Code(s): R06.00 - DYSPNEA, UNSPECIFIED Status: Acute Comment: Multifactorial due to CHF, COPD, supportive, improved (3) Lower extremity ulceration Code(s): L97.909 - NON-PRS CHRONIC ULC UNSP PRT OF UNSP LOW LEG W UNSP SEVERITY Status: Acute Qualifiers: Laterality: left Comment: Continue Zosyn/Vancomycin, WCT for local care, sutures removed, consult Gen surgery for I&D for suspected small abscess (4) CKD (chronic kidney disease) stage 3, GFR 30-59 ml/min Status: Chronic Comment: Avoid nephrotoxic meds and limit contrast exposure (5) COPD (chronic obstructive pulmonary disease) Status: Chronic Qualifiers: Emphysema type: unspecified Comment: Continue Duonebs, add Dulera 2 puffs BID (6) DM type 2 (diabetes mellitus, type 2) Status: Chronic Qualifiers: Comment: Continue Glipizide, ISS, ADA (7) Noncompliance with medication regimen Code(s): Z91.14 - PATIENT'S OTHER NONCOMPLIANCE WITH MEDICATION REGIMEN Status : Chronic (8) Tobacco abuse Code(s): Z72.0 - TOBACCO USE Status: Chronic Comment: Tobacco cessation resources - Plan continue antibiotics, PT/OT, social worker psychiatric, out of bed/ambulate Stable currently -: Consult Gen Surgery for potential I&D -: Add Lidocaine patches -: Continue Lasix 40mg IV q6h another 24h -: Add Prednisone * Continue Zosyn/Vanc * AM lab: BMP
[2019-03-18] MEDS ORDERED: Lidocaine 5% Patch TD SCH (12:15)
[2019-03-18] MEDS ORDERED: predniSONE 20 MG TAB PO SCH (12:15)
[2019-03-18] MEDS: HumaLOG 300 UNITS/3 ML VIAL SC PRN ×2 (16:25→21:16)
[2019-03-18] MEDS: Lidocaine Patch Removal 1 EACH TOP SCH (20:27)
[2019-03-19] MEDS: Piperacillin/Tazobactam 2.25 GM in Sodium Chloride 0.9% 100 ML IVPB SCH ×4 (00:08→17:11)
[2019-03-19] MEDS: Furosemide 40 MG/4 ML VIAL SLOW IVP SCH ×4 (01:24→18:00)
[2019-03-19] MEDS ORDERED: Lidocaine 1% w/Epinephrine 1:100K 20 ML VIAL FS SCH (02:45)
[2019-03-19 06:01] LABS: Anion Gap 16 mmol/L (10-20); BUN (Urea Nitrogen) 32 mg/dL (8.4-25.7); Calc. Creatinine Clearance 53 mL/min (70-130); Calcium 9.5 mg/dL (7.8-10.44); Carbon Dioxide 26 mmol/L (22-29); Chloride 97 mmol/L (98-107); Estimated GFR-MDRD 48; Glucose 362 mg/dL (70-105); Sodium 135 mmol/L (136-145)
[2019-03-19] MEDS: HumaLOG 300 UNITS/3 ML VIAL SC PRN ×4 (06:04→21:25)
[2019-03-19] MEDS: Mometasone/Formoterol 120 PUFF INHALER INH SCH ×2 (06:59→18:42)
[2019-03-19] MEDS: Aspirin 81 mg Enteric Coated Tablet PO SCH (08:22)
[2019-03-19] MEDS: predniSONE 20 MG TAB PO SCH (08:22)
[2019-03-19] MEDS: Lisinopril 20 MG TAB PO SCH (08:22)
[2019-03-19] MEDS: glipiZIDE 5 MG TAB PO SCH ×2 (08:22→16:41)
[2019-03-19] MEDS: Famotidine 20 MG TAB PO SCH ×2 (08:22→21:22)
[2019-03-19] MEDS: Carvedilol 6.25 MG TAB PO SCH ×2 (08:22→16:41)
[2019-03-19 09:13] LABS: Vancomycin, Trough 13.8 ug/mL
[2019-03-19] MEDS: Vancomycin HCl 500 MG in Sodium Chloride 0.9% 100 ML IVPB SCH ×2 (09:38→21:22)
--- NOTE | 2019-03-19 10:32 | EKG ---
Test Reason : Blood Pressure : / mmHG Vent. Rate : 075 BPM Atrial Rate : 075 BPM P-R Int : 178 ms QRS Dur : 102 ms QT Int : 494 ms P-R-T Axes : 053 009 118 degrees QTc Int : 551 ms Normal sinus rhythm Possible Left atrial enlargement Possible Inferior infarct , age undetermined Prolonged QT Abnormal ECG Unchanged Confirmed by GENNA NINO ([id number]), video effects editor ISAI INMAN ([id number]) on 03/19/2019 10:31:42 AM Referred By: Confirmed By:GENNA NINO
[2019-03-19] MEDS: Lidocaine 5% Patch TD SCH (12:00)
--- NOTE | 2019-03-19 14:56 | PDOC.EVN ---
Event Note - Event Note Event Note: Patient seen and examined yesterday. Returned twice yesterday and three times today for I&D and patient was either not in room or eating lunch and not ready. Will check back tomorrow.
--- NOTE | 2019-03-19 16:31 | PDOC.PN ---
- Subjective Encounter Start Date: 03/19/19 Encounter Start Time: 11:25 Mr. Tucker was seen today in follow-up of CHF exacberation and cellulitis of the left lower extremity. He is sitting up in a chair eating. He does not have any new complaints. - Objective Resuscitation Status - Order Detail: 03/16/19 12:28 Resuscitation Status Routine Resuscitation Status: FULL: Full Resuscitation MAR Reviewed: Yes Vital Signs & Weight: Vital Signs (12 hours) Temp Pulse Resp BP Pulse Ox 03/19/19 15:39 97.9 F 63 18 147/67 H 96 03/19/19 12:04 97.9 F 61 18 138/71 94 L 03/19/19 08:15 97.8 F 65 20 133/62 94 L 03/19/19 06:59 70 16 97 Weight Admit Weight 177 lb 1.6 oz Weight 185 lb 6.4 oz I&O: 03/18/19 03/19/19 03/20/19 06:59 06:59 06:59 Intake Total 1510 2340 Output Total 4025 5605 Balance -1970 -6820 Result Diagrams: 03/17/19 04:58 03/19/19 05:00 Additional Labs: Accuchecks 03/19/19 03/19/19 03/18/19 10:35 05:44 20:26 POC Glucose 219 H 332 H 319 H Phys Exam - Physical Examination HEENT: PERRLA Respiratory: no wheezing, no rales, no rhonchi, clear to auscultation bilateral Cardiovascular: RRR, no significant murmur, no rub Gastrointestinal: soft, non-tender, no distention, positive bowel sounds Musculoskeletal: pulses present, edema present brawny- non- pitting edema in both lower extremities, mild discoloration of the skin in both legs Dx/Plan (1) Lower extremity ulceration Code(s): L97.909 - NON-PRS CHRONIC ULC UNSP PRT OF UNSP LOW LEG W UNSP SEVERITY Status: Acute Qualifiers: Laterality: left Comment: Continue Zosyn/Vancomycin, WCT for local care, sutures removed, consult Gen surgery for I&D for suspected small abscess (2) Acute on chronic systolic ACC/AHA stage C congestive heart failure Code(s): I50.23 - ACUTE ON CHRONIC SYSTOLIC (CONGESTIVE) HEART FAILURE Status : Acute Comment: EF 10-15%, continue Lasix 40mg IV q6h, serial I/O's, daily weights (3) Hypertension Code(s): I10 - ESSENTIAL (PRIMARY) HYPERTENSION Status: Chronic (4) CKD (chronic kidney disease) stage 3, GFR 30-59 ml/min Status: Chronic Comment: Avoid nephrotoxic meds and limit contrast exposure (5) COPD (chronic obstructive pulmonary disease) Status: Chronic Qualifiers: Emphysema type: unspecified Comment: Continue Duonebs, add Dulera 2 puffs BID - Plan * Acute on chronic systolic heart failure- improved with IV Lasix * Lower extremity cellulitis- continue IV Vancomycin and Zosyn- his antibiotics can likely be de-escalated in the AM * HTN- blood pressure is stable * CKD- renal function is stable * DM- blood glucose is stable .
[2019-03-19] MEDS: Lidocaine Patch Removal 1 EACH TOP SCH (21:30)
[2019-03-20] MEDS: Piperacillin/Tazobactam 2.25 GM in Sodium Chloride 0.9% 100 ML IVPB SCH ×2 (00:25→06:13)
[2019-03-20] MEDS: Furosemide 40 MG/4 ML VIAL SLOW IVP SCH ×2 (00:25→06:13)
[2019-03-20] MEDS: Acetaminophen 500 MG TAB PO PRN (02:41)
[2019-03-20] MEDS: Mometasone/Formoterol 120 PUFF INHALER INH SCH (06:51)
[2019-03-20 07:44] VITALS: TEMP 97.9
[2019-03-20] MEDS: Vancomycin HCl 500 MG in Sodium Chloride 0.9% 100 ML IVPB SCH (09:14)
[2019-03-20] MEDS: glipiZIDE 5 MG TAB PO SCH (09:15)
[2019-03-20] MEDS: Famotidine 20 MG TAB PO SCH (09:15)
[2019-03-20] MEDS: predniSONE 20 MG TAB PO SCH (09:15)
[2019-03-20] MEDS: Aspirin 81 mg Enteric Coated Tablet PO SCH (09:15)
[2019-03-20] MEDS: Lidocaine 5% Patch TD SCH (09:15)
[2019-03-20] MEDS: Carvedilol 6.25 MG TAB PO SCH (09:15)
[2019-03-20] MEDS: Lisinopril 20 MG TAB PO SCH (09:15)
[2019-03-20] MEDS: HumaLOG 300 UNITS/3 ML VIAL SC PRN ×2 (09:16→11:58)
--- NOTE | 2019-03-20 10:39 | OP ---
DATE OF PROCEDURE: 03/20/2019 PREOPERATIVE DIAGNOSIS: Left lower extremity wound. POSTOPERATIVE DIAGNOSIS: Left lower extremity wound. PROCEDURE PERFORMED: Incision and drainage of left lower extremity wound. ANESTHESIA: Local. ESTIMATED BLOOD LOSS: Minimal. COMPLICATIONS: None. SPECIMEN: None. DESCRIPTION OF PROCEDURE: The patient's left lower extremity was prepped and draped. Local anesthetic was infiltrated around the wound with purulent drainage. An area of the necrotic tissue was removed. There is no underlying cavity. No purulence. There is a venous stasis ulcer present in the area. There is venous bleeding that was oversewn using Vicryl absorbable suture. Surgicel and dressings were placed. The sutures will dissolve or it can be removed at a later day, but no removal is necessary and I recommended keeping it covered until it scabs up. He can be discharged any time. Job ID: [id number]
--- NOTE | 2019-03-20 11:39 | PDOC.PN ---
- Subjective Encounter Start Date: 03/20/19 Encounter Start Time: 11:37 Mr. Irving was seen today in follow-up of CHF exacerbation. He does not have any complaints today. He appears to be clinically at his baseline. - Objective Resuscitation Status - Order Detail: 03/16/19 12:28 Resuscitation Status Routine Resuscitation Status: FULL: Full Resuscitation MAR Reviewed: Yes Vital Signs & Weight: Vital Signs (12 hours) Temp Pulse Resp BP BP Pulse Ox 03/20/19 09:15 96 03/20/19 07:38 97.9 F 62 16 137/70 96 03/20/19 06:51 63 16 99 03/20/19 03:00 97.5 F L 64 16 129/92 H 97 Weight Admit Weight 177 lb 1.6 oz Weight 184 lb 12.8 oz I&O: 03/19/19 03/20/19 03/21/19 06:59 06:59 06:59 Intake Total 2340 2610 Output Total 5605 4330 Balance -3265 -1720 Result Diagrams: 03/17/19 04:58 03/19/19 05:00 Additional Labs: Accuchecks 03/20/19 03/20/19 03/19/19 11:10 05:06 20:57 POC Glucose 238 H 231 H 298 H 03/19/19 03/19/19 17:57 16:51 POC Glucose 359 H 350 H Phys Exam - Physical Examination HEENT: PERRLA Respiratory: no wheezing, no rales, no rhonchi, clear to auscultation bilateral Cardiovascular: RRR, no significant murmur, no rub Gastrointestinal: soft, non-tender, no distention, positive bowel sounds Musculoskeletal: pulses present, edema present pulses are diminished, non- pitting brawny edema various venous statsis ulcers Neurological: non-focal, normal sensation, moves all 4 limbs Dx/Plan (1) Lower extremity ulceration Code(s): L97.909 - NON-PRS CHRONIC ULC UNSP PRT OF UNSP LOW LEG W UNSP SEVERITY Status: Acute Qualifiers: Laterality: left Comment: Continue Zosyn/Vancomycin, WCT for local care, sutures removed, consult Gen surgery for I&D for suspected small abscess (2) Acute on chronic systolic ACC/AHA stage C congestive heart failure Code(s): I50.23 - ACUTE ON CHRONIC SYSTOLIC (CONGESTIVE) HEART FAILURE Status : Acute Comment: EF 10-15%, continue Lasix 40mg IV q6h, serial I/O's, daily weights (3) Hypertension Code(s): I10 - ESSENTIAL (PRIMARY) HYPERTENSION Status: Chronic (4) CKD (chronic kidney disease) stage 3, GFR 30-59 ml/min Status: Chronic Comment: Avoid nephrotoxic meds and limit contrast exposure (5) COPD (chronic obstructive pulmonary disease) Status: Chronic Qualifiers: Emphysema type: unspecified Comment: Continue Duonebs, add Dulera 2 puffs BID - Plan * Lower extremity cellulitis- this is mostly due to venous stasis disease- will discontinue IV antibiotics * CHF exacerbation- he is clinically at his baseline- will change him to oral Lasix * HTN-blood pressure is stable * DM- blood glucose is not optimally controlled- will discontinue Prednisone * Stable for discharge home later today or in the AM.
[2019-03-20 11:53] VITALS: BP 151/75
[2019-03-20] MEDS ORDERED: Cephalexin 250 MG CAP PO SCH (12:00)
[2019-03-20] MEDS ORDERED: Furosemide 40 MG TAB PO SCH (14:00)
--- NOTE | 2019-03-21 10:44 | DIS ---
DATE OF ADMISSION: 03/17/2019 DATE OF DISCHARGE: 03/20/2019 PRIMARY CARE PROVIDER: MASSIMO Newell DISCHARGE DISPOSITION: Home. PRIMARY DISCHARGE DIAGNOSES: 1. Cellulitis of both lower extremities. 2. Chronic venous stasis disease. 3. Acute on chronic systolic heart failure exacerbation. 4. Hypertension. 5. Diabetes mellitus type 2. 6. Chronic kidney disease stage 3. 7. Chronic obstructive pulmonary disease. 8. Coronary artery disease. DISCHARGE MEDICATIONS: 1. Lisinopril 20 mg daily. 2. Potassium chloride 80 mEq daily. 3. Aspirin 81 mg a day. 4. Carvedilol 6.25 mg twice daily. 5. Keflex 250 mg q.i.d. 6. Lasix 40 mg daily. 7. Glipizide 5 mg twice a day. 8. Dulera 200/5 two puffs twice a day. CODE STATUS: Full code. ALLERGIES: NO KNOWN DRUG ALLERGIES. HOSPITAL COURSE: Mr. Irving is a pleasant 58-year-old gentleman, who came to the emergency room after he noted increased swelling in his legs as well as some small ulcerations there as well. He also had a retained suture as well with some concern for inflammatory change around it. The patient has failed to follow up for the suture removal. He was admitted and started on broad-spectrum IV antibiotics with good results. He was also started on IV Lasix for a mild acute on chronic systolic heart failure exacerbation. He was seen by General Surgery. The suture was removed and the area was I and D'd. There was no evidence of any purulence or deep abscess. No drainage from the area. I suspect that the ulcers are primarily venous stasis ulcers with only mild if any superinfection. Therefore, he is currently stable for discharge home and can have close outpatient followup. Job ID: [id number]
== END 2019-03-20 14:38 | disposition home or self-care (01) | DRG 602 ==
LOC: ERS 16:20 → 2SW 18:47 → OBSVTOIN 03-17 09:53 → 2NO 03-17 17:01
PROVIDERS: ADMIT Emergency Medicine; ATTEND Emergency Medicine
PROC: 0Y9J0ZZ Drainage of Left Lower Leg, Open Approach (ICD-10-PCS; principal; 2019-03-20)
DX: L03.116 Cellulitis of left lower limb (principal); I50.23 Acute on chronic systolic (congestive) heart failure; I13.0 Hypertensive heart and chronic kidney disease with heart failure and stage 1 through stage 4 chronic kidney disease, or unspecified chronic kidney disease; L97.909 Non-pressure chronic ulcer of unspecified part of unspecified lower leg with unspecified severity; I87.8 Other specified disorders of veins; F17.210 Nicotine dependence, cigarettes, uncomplicated; N18.3 Chronic kidney disease, stage 3 (moderate); I25.10 Atherosclerotic heart disease of native coronary artery without angina pectoris; E11.22 Type 2 diabetes mellitus with diabetic chronic kidney disease; F19.10 Other psychoactive substance abuse, uncomplicated; E78.00 Pure hypercholesterolemia, unspecified; J44.9 Chronic obstructive pulmonary disease, unspecified; Z95.5 Presence of coronary angioplasty implant and graft; Z95.810 Presence of automatic (implantable) cardiac defibrillator; Z79.82 Long term (current) use of aspirin; Z79.899 Other long term (current) drug therapy; I25.2 Old myocardial infarction; Z79.84 Long term (current) use of oral hypoglycemic drugs; Z91.14 Patient's other noncompliance with medication regimen
CPT/HCPCS: 36415; 36416; 71045; 80048; 80053; 80202; 82553; 83880; 84484; 85007; 85025; 85027; 93005; 93798; 96374; J1940; J2001; J2543; J3370; J3490; J7512

== ENCOUNTER 2019-03-31 21:22 | Emergency (ER) | payer MEDICARE ==
--- NOTE | 2019-03-31 21:50 | RAD ---
AP CHEST: 03/31/19 HISTORY: Shortness of breath. Lower extremity edema. Cardiomegaly. Mild vascular engorgement. No infiltrate. No significant edema. AICD lead unchanged. IMPRESSION: Cardiomegaly with mild vascular engorgement. POS: [facility]
[2019-03-31 21:57] LABS: #Basophils 0.1 thou/uL (0.0-0.2); #Eosinphils 0.1 thou/uL (0.0-0.7); #Lymphocytes 1.5 thou/uL (1.20-3.40); #Monocytes 0.5 thou/uL (0.11-0.59); #Neutrophils 5.4 thou/uL (1.40-6.50); %Basophils 0.9 % (0.0-1.0); %Eosinophils 1.7 % (0.0-10.0); %Lymphocytes 20.2 % (21.0-51.0); %Monocytes 6.4 % (0.0-10.0); %Neutrophils 70.9 % (42.0-75.0); Hemoglobin 11.4 g/dL (14.0-18.0); Mean Corpuscular HGB CONC 31.1 g/dL (32.0-36.0); Mean Corpuscular Hemoglobin 29.4 pg (27.0-31.0); Mean Corpuscular Volume 94.4 fL (78.0-98.0); Mean Platelet Volume 10.2 fL (7.4-10.4); Platelet Count 126 thou/uL (130-400); RBC Distribution Width 15.6 % (11.5-14.5); Red Blood Cell (RBC) Count 3.87 mill/uL (4.70-6.10); White Blood Cell (WBC) Count 7.6 thou/uL (4.8-10.8)
[2019-03-31 22:17] LABS: ALT (SGPT) 7 U/L (8-55); AST (SGOT) 11 U/L (5-34); Albumin 3.5 g/dL (3.5-5.0); Alkaline Phosphatase 107 U/L (40-150); Anion Gap 14 mmol/L (10-20); BUN (Urea Nitrogen) 35 mg/dL (8.4-25.7); Bilirubin, Total 1.6 mg/dL (0.2-1.2); Calc. Creatinine Clearance 0 mL/min (70-130); Carbon Dioxide 22 mmol/L (22-29); Chloride 106 mmol/L (98-107); Estimated GFR-MDRD 47; Globulin 3.6 g/dL (2.4-3.5); Glucose 196 mg/dL (70-105); Potassium 4.1 mmol/L (3.5-5.1); Protein, Total 7.1 g/dL (6.0-8.3); Sodium 138 mmol/L (136-145)
[2019-03-31 22:41] LABS: CKMB 1.9 ng/mL (0-6.6)
== END 2019-03-31 23:15 | disposition home or self-care (01) ==
LOC: ERS 21:22
DX: I11.0 Hypertensive heart disease with heart failure (principal); I50.9 Heart failure, unspecified; E11.9 Type 2 diabetes mellitus without complications; E78.5 Hyperlipidemia, unspecified; F17.210 Nicotine dependence, cigarettes, uncomplicated; Z79.899 Other long term (current) drug therapy
CPT/HCPCS: 36415; 71045; 80053; 82553; 83880; 84484; 85025; 93005

== ENCOUNTER 2019-04-09 12:59 | Emergency (ER) | payer MEDICARE ==
[2019-04-09 13:37] LABS: #Eosinphils 0.2 thou/uL (0.0-0.7); #Lymphocytes 1.7 thou/uL (1.20-3.40); #Neutrophils 4.7 thou/uL (1.40-6.50); %Basophils 0.3 % (0.0-1.0); %Lymphocytes 22.6 % (21.0-51.0); %Monocytes 12.7 % (0.0-10.0); %Neutrophils 62.4 % (42.0-75.0); Hemoglobin 10.2 g/dL (14.0-18.0); Mean Corpuscular Hemoglobin 29.7 pg (27.0-31.0); Mean Corpuscular Volume 95.8 fL (78.0-98.0); Mean Platelet Volume 9.7 fL (7.4-10.4); Platelet Count 135 thou/uL (130-400); Red Blood Cell (RBC) Count 3.42 mill/uL (4.70-6.10); White Blood Cell (WBC) Count 7.5 thou/uL (4.8-10.8)
[2019-04-09] MEDS ORDERED: HYDROcodone/Acetaminophen 5/325 mg Tablet ONE (13:38)
== END 2019-04-09 14:35 | disposition home or self-care (01) ==
LOC: ERS 12:59
DX: Z48.01 Encounter for change or removal of surgical wound dressing (principal); E78.5 Hyperlipidemia, unspecified; E11.9 Type 2 diabetes mellitus without complications; I11.0 Hypertensive heart disease with heart failure; I50.9 Heart failure, unspecified; J44.9 Chronic obstructive pulmonary disease, unspecified; F17.210 Nicotine dependence, cigarettes, uncomplicated; Z79.899 Other long term (current) drug therapy; Z79.82 Long term (current) use of aspirin; Z79.891 Long term (current) use of opiate analgesic
CPT/HCPCS: 36415; 85025; 94640; J7620

== ENCOUNTER 2019-04-10 19:15 | Emergency (ER) | payer MEDICARE ==
--- NOTE | 2019-04-10 19:43 | RAD ---
RADIOGRAPH CHEST 1 VIEW: DATE: 04/10/2019 HISTORY: 58-year-old male with chest pain COMPARISON: 03/31/2019 FINDINGS: There is cardiomegaly. There is no evidence of airspace density, pulmonary edema, or pneumothorax. Th e lateral costophrenic angles are not effaced. Left subclavian single lead AICD. IMPRESSION: 1) No acute pulmonary findings. 2) cardiomegaly 3) automatic implantable cardioverter-defibrillator.
[2019-04-10 19:50] LABS: #Eosinphils 0.2 thou/uL (0.0-0.7); #Lymphocytes 1.5 thou/uL (1.20-3.40); #Monocytes 1.1 thou/uL (0.11-0.59); #Neutrophils 6.4 thou/uL (1.40-6.50); %Basophils 0.3 % (0.0-1.0); %Eosinophils 1.8 % (0.0-10.0); %Lymphocytes 16.6 % (21.0-51.0); %Monocytes 11.8 % (0.0-10.0); %Neutrophils 69.4 % (42.0-75.0); Hemoglobin 9.1 g/dL (14.0-18.0); Mean Corpuscular HGB CONC 30.6 g/dL (32.0-36.0); Mean Corpuscular Hemoglobin 29.1 pg (27.0-31.0); Mean Corpuscular Volume 95.1 fL (78.0-98.0); Mean Platelet Volume 9.5 fL (7.4-10.4); Platelet Count 150 thou/uL (130-400); RBC Distribution Width 16.1 % (11.5-14.5); Red Blood Cell (RBC) Count 3.13 mill/uL (4.70-6.10); White Blood Cell (WBC) Count 9.3 thou/uL (4.8-10.8)
[2019-04-10 20:06] LABS: ALT (SGPT) Less than 7 U/L (8-55); AST (SGOT) 13 U/L (5-34); Albumin 3.3 g/dL (3.5-5.0); Alkaline Phosphatase 91 U/L (40-150); Anion Gap 15 mmol/L (10-20); BUN (Urea Nitrogen) 24 mg/dL (8.4-25.7); Bilirubin, Total 1.8 mg/dL (0.2-1.2); Calc. Creatinine Clearance 0 mL/min (70-130); Calcium 8.6 mg/dL (7.8-10.44); Carbon Dioxide 23 mmol/L (22-29); Chloride 107 mmol/L (98-107); Estimated GFR-MDRD 57; Globulin 3.1 g/dL (2.4-3.5); Glucose 123 mg/dL (70-105); Potassium 3.6 mmol/L (3.5-5.1); Protein, Total 6.4 g/dL (6.0-8.3); Sodium 141 mmol/L (136-145)
[2019-04-10] MEDS ORDERED: Ketorolac Tromethamine 30 MG/ML VIAL ONE (20:26)
[2019-04-10 21:06] LABS: CKMB 1.4 ng/mL (0-6.6)
== END 2019-04-10 20:35 | disposition home or self-care (01) ==
LOC: ERS 19:15
DX: I11.0 Hypertensive heart disease with heart failure (principal); I50.9 Heart failure, unspecified; E11.9 Type 2 diabetes mellitus without complications; E78.5 Hyperlipidemia, unspecified; I25.2 Old myocardial infarction; J44.9 Chronic obstructive pulmonary disease, unspecified; F17.210 Nicotine dependence, cigarettes, uncomplicated; Z79.899 Other long term (current) drug therapy; Z79.82 Long term (current) use of aspirin; Z79.891 Long term (current) use of opiate analgesic
CPT/HCPCS: 36415; 71045; 80053; 82553; 83880; 84484; 85025; 93005; 94760; J1885

== ENCOUNTER 2019-04-12 10:51 | Inpatient (IN) | payer MEDICARE ==
--- NOTE | 2019-04-12 11:46 | RAD ---
XR Chest 1 View Portable History: Chest pain Comparison: Radiograph 2 days prior Findings: Heart size markedly enlarged. No pneumothorax. Mild portal venous congestion. Small effusio ns. Single-lead defibrillator. No acute osseous abnormality. Impression: Cardiomegaly with mild pulmonary venous congestion with small effusions.
[2019-04-12] MEDS ORDERED: Acetaminophen 500 MG TAB ONE (12:11)
[2019-04-12 12:13] LABS: Band 2 % (5-11); Hemoglobin 9.6 g/dL (14.0-18.0); Lymphocytes 6 % (21-51); MDiff Complete? YES; Mean Corpuscular HGB CONC 31.7 g/dL (32.0-36.0); Mean Corpuscular Hemoglobin 29.7 pg (27.0-31.0); Mean Corpuscular Volume 93.6 fL (78.0-98.0); Mean Platelet Volume 9.7 fL (7.4-10.4); Monocytes 3 % (0-10); Neutrophil 89 % (42-75); Platelet Count 179 thou/uL (130-400); Polychromasia SLIGHT = 2-3 cells (100X) (0-2/hpf); RBC Distribution Width 16.4 % (11.5-14.5); Red Blood Cell (RBC) Count 3.23 mill/uL (4.70-6.10); White Blood Cell (WBC) Count 33.3 thou/uL (4.8-10.8)
[2019-04-12 12:27] LABS: ALT (SGPT) 20 U/L (8-55); AST (SGOT) 49 U/L (5-34); Albumin 3.4 g/dL (3.5-5.0); Alkaline Phosphatase 101 U/L (40-150); Anion Gap 22 mmol/L (10-20); BUN (Urea Nitrogen) 37 mg/dL (8.4-25.7); Bilirubin, Total 4.3 mg/dL (0.2-1.2); CK (CPK) 631 U/L (30-200); Calc. Creatinine Clearance 0 mL/min (70-130); Calcium 9.2 mg/dL (7.8-10.44); Carbon Dioxide 17 mmol/L (22-29); Chloride 102 mmol/L (98-107); Estimated GFR-MDRD 35; Globulin 3.7 g/dL (2.4-3.5); Glucose 205 mg/dL (70-105); Potassium 4.9 mmol/L (3.5-5.1); Protein, Total 7.1 g/dL (6.0-8.3); Sodium 136 mmol/L (136-145)
[2019-04-12 12:34] LABS: CKMB 6.2 ng/mL (0-6.6)
[2019-04-12] MEDS ORDERED: Aspirin Chewable 81 MG TAB ONE (13:10)
[2019-04-12] MEDS ORDERED: Ondansetron PF 4 MG/2 ML Vial ONE (13:13)
[2019-04-12] MEDS ORDERED: Morphine 4 MG/ML VIAL ONE (13:13)
[2019-04-12] MEDS ORDERED: cefTRIAXone\\ROCEPHIN 2 GM in Sodium Chloride 0.9% 100 ML IVPB SCH (15:00)
--- NOTE | 2019-04-12 15:39 | HP ---
PRIMARY CARE PROVIDER: Dr. Costa. HISTORY OF PRESENT ILLNESS: The patient presents with multiple complaints. He is a difficult historian. It must be noted that this is his fifth admission this year. He said he had a slight chest pain, which is described as pressure today. It has been associated with shortness of breath with exertion, lying down. He has been vomiting. States he has not eaten in three days. He has had a headache. He states he had varicose vein stitched at [facility] last week on his left calf. He states it is severely painful. He states he has had fever and chills for the past 2 days. REVIEW OF SYSTEMS: As I tried to obtain more information, I went to review of systems; GENERAL: He has had dizziness arising with no fainting or headache. He has had fever and chills undocumented for the past 2 days. EYES: He has had blurred vision with no double vision or flashing lights. EAR, NOSE, AND THROAT: No ear pain or drainage. No nasal bleeding. No trouble swallowing. CARDIAC: The aforementioned slight pressured chest pain associated with shortness of breath, shortness of breath lying down and with exertion. RESPIRATORY: He has chronic cough, has a history of COPD, has been wheezing. He continues to smoke cigarettes half a pack a day by admission. GASTROINTESTINAL: In addition to nausea and vomiting, no blood in his emesis. He has had vague abdominal pain and diarrhea for the past 2 days. MUSCULOSKELETAL: He has pain in his left calf, always hurts. He has difficulty walking due to the pain. He states it is swollen and tender. GENITOURINARY: No hematuria, dysuria, or nocturia. NEUROLOGIC: No strokes, seizures, or focal weakness. PSYCHIATRIC: No anxiety or depression. SKIN: He has a wound on his left calf that has been opened since it was "stitched up." HEME/LYMPH: Denies any tender or swollen lymph nodes. PAST MEDICAL HISTORY: His past medical history is extensive. He has history of chronic systolic-diastolic congestive heart failure, coronary artery disease status post stent placement, hypertension, diabetes mellitus type 2, chronic kidney disease 3, polysubstance abuse, chronic obstructive pulmonary disease, tobacco abuse, ongoing; noncompliance with medical therapy and history of ventricular tachycardia. PAST SURGICAL HISTORY: Besides his cardiac cath includes an AICD placement. MEDICATIONS: He states he takes now is; 1. Coreg 6.25 b.i.d. 2. Glipizide 5 mg twice a day. 3. Lasix 40 mg twice a day. 4. Lisinopril 5 mg a day. 5. Aspirin 81 mg a day. 6. Potassium chloride 20 mEq a day. 7. He has recently been on amiodarone 200 mg a day, Lipitor 40 mg a day, hydralazine 50 mg 3 times a day, isosorbide dinitrate 20 mg t.i.d. and Aldactone 25 mg a day. As I said already, he has a long history of noncompliance. ALLERGIES: NO KNOWN DRUG ALLERGIES. FAMILY HISTORY: Positive for hypertension and coronary artery disease. SOCIAL HISTORY: He admits to smoking cigarettes, is vague about that. He states he does not drink alcohol. He states he has used cocaine in the past, but does not use it at all now. His code status is full. He does not name any decision maker as a surrogate. PHYSICAL EXAMINATION: VITAL SIGNS: His blood pressure is 116/73, pulse 88, respirations 22, O2 saturation is 92 on 2 L. HEENT: Examination of his head, eyes, ears, nose, and throat revealed pupils equal and round. Extraocular movements are intact. Sclerae are white. Tympanic membranes clear. Nose is clear. Oral mucous membranes are dry. Dental hygiene is fair. NECK: No jugular venous distention, adenopathy or thyromegaly. CHEST: Clear to auscultation and percussion. HEART: Had a regular rate and rhythm with widespread ST-T abnormality consistent with ischemia, probable lateral infarct in the past, reviewed by me. Chest x-ray reveals cardiomegaly, AICD, essentially clear lung rahman, question of a small right pleural effusion, reviewed by me. LABORATORY DATA: He has 33,300 white count with a hemoglobin of 9.6 and a platelet count of 179,000. This is dramatically changed from previous. It has 89% neutrophils and 2% bands. His creatinine is 2.33, BUN 37, CO2 of 17, chloride 102, sodium 136, potassium 4.9. BNP is 12,612. Troponin 0.699, CK 63, bilirubin is 4.3, AST is 49. ADMITTING DIAGNOSES: 1. Chest pain with [id number] myocardial infarction versus demand ischemia. 2. Abscess, cellulitis of the left lower leg. 3. Diabetes mellitus type 2 with chronic kidney disease stage 3. 4. Coronary artery disease. 5. Cardiomyopathy. 6. Chronic obstructive pulmonary disease. 7. Hypertension. PLAN: The patient will be placed in the hospital. Serial enzymes will be done. Blood cultures will be obtained. The patient will need wound care on his leg. Serial Accu-Cheks will be done. Selected home medicines will be continued. Antibiotics will be started with Rocephin and vancomycin. They will need renal adjustment. DISCUSSION: I think the major precipitating problem for this patient is this leg, which has been seen before evaluated. It is exquisitely tender. I really suspect that is infected and will possibly need consultations from Dr. Rivera. I will do an ultrasound of the leg to look for an abscess, etc. In addition to above, we will use morphine transiently for pain. This will not to be continued for a long time. His dry cleaner hand will need to be consulted at some time. Job ID: [id number]
--- NOTE | 2019-04-12 17:13 | ULT ---
EXAM: Soft tissue ultrasound of the left leg HISTORY: Left what leg open wound. Evaluate for underlying abscess TECHNIQUE: Multiplanar grayscale and color Doppler images were obtained in the left lower extremity s oft tissue ultrasound. COMPARISON: None FINDINGS: An area of focal swelling/edema is seen measuring 1.7 cm in greatest dimension. No focal fl uid collection is seen. IMPRESSION: No abscess identified
[2019-04-12 17:15] LABS: Troponin I 0.869 ng/mL (< 0.028)
--- NOTE | 2019-04-12 17:39 | PDOC.CTH ---
Cardiology Progress Note - Subjective Primary Box Press Operator: Dr. Baig HPI: This is a chronically ill 58 yo gentleman admitted primarily for leg pain. He states he started have pain in the L leg which has progressively gotten worse over the last 2 days. He states he is usually able to walk with a gain but is unable to at this time because of pain in the L leg. He denies anything making the pain better but trying to put pressure on the leg makes it worse. He states he has not had anything to eat for 3 days because he feels nauseous. He did vomit x1 today. Pain in the leg is rated at 10/10. He went to [facility] ED last week and had repair of a varicose vein on his LLE. Patient states he has chest pain which is described as pressure non-radiating which he rates at a 1/10. Does get worse with movement. Has been going on for a few months per his report. He denies SOB, no orthopnea. He has a history of CHF with EF 10-15%, cocaine abuse, >40 pack-year smoking history. PMH: CHF EF 10-15% in Aug 2018, CAD, HTN, DM2, CKD3, cocaine abuse PSH: AICD, Cath Meds: coreg, glipizide, Lasix, ASA, Lisinopril, potassium Allergies: NKDA Soc Hx: > 40 pack-year smoking, former cocaine abuser, denies alcohol Fm Hx: non-contributory REVIEW OF SYSTEMS: Gen: + fever, chills Neuro: denies DIGGS or focal weakness Resp: no cough, no SOB, no wheeze Card: see hpi GI: nausea, vomiting, no abd pain : no dysuria, no hematuria Ext: see hpi Heme: , no blood thinners Skin: redness affecting LLE PHYSICAL EXAMINATION: General: NAD, alert and oriented x3 HEENT: PERRLA, EOMI Heart/Cardiovascular System: RRR, difficult to palpate pulses in LLE, 2/6 diastolic murmur Lungs/Respiratory System: clear to auscultation bilaterally. No increased work of breathing. Room air. Abdomen/Gastro-Intestinal System: no abdominal tenderness, normal bowel sounds, no masses, no organomegaly Extremities: LLE with quarter sized open wound, erythematous around wound, no edema Neuro: No gross deficits appreciated. CN 2-12 grossly intact Psychiatry: Awake, Alert and cooperative with exam Skin: see above Musculoskeletal: Full ROM, able to lift legs off bed A/P: # Suspect type II SC 2/2 sepsis - trop 0.699, trend - EKG shows t-inv in V4-V6, no ST changes - patient is septic with WBC 33, LA 5.5, rocephin/vanc # Chronic CHF - EF 10-15% in Aug 2018 - AICD - BNP 25460, baseline ~[id number], small pleural effusions, no orthopnea - cont home Lasix, cautious fluid resuscitation # Peripheral Vascular disease - I have smoked for forever - difficult to palpate pulses, ordered arterial/Doppler US to check flow and for DVT - bedside doppler showed weak pulses on the L may need nephro consult Dispo: overall guarded, suspect main source of elevated trop is sepsis which should be treated before further cardiologic intervention. Will follow closely - Objective Vital Signs Temp Pulse Resp BP Pulse Ox 04/12/19 16:15 98.6 F 81 22 H 127/65 95 04/12/19 16:07 97.8 F 81 22 H 127/65 93 L Weight 85.275 kg - Labs Result Diagrams: 04/12/19 11:33 04/12/19 11:33 Troponin/CKMB CK-MB (CK-2) 6.2 ng/mL (0-6.6) 04/12/19 11:31 Troponin I 0.869 ng/mL (< 0.028) H* 04/12/19 16:33
[2019-04-12] MEDS ORDERED: Vancomycin HCl 1.25 GM in Sodium Chloride 0.9% 250 ML 250 ML IVPB SCH (18:00)
[2019-04-12] MEDS: Sodium Chloride 0.9% 1,000 ML IV SCH (18:13)
[2019-04-12] MEDS: Morphine 4 MG/ML VIAL SLOW IVP PRN (19:12)
[2019-04-12] MEDS: Mometasone/Formoterol 120 PUFF INHALER INH SCH (19:21)
[2019-04-12 19:40] LABS: Critical Call Chem Troponin I RESULT DECREASING; Troponin I 0.718 ng/mL (< 0.028)
[2019-04-12] MEDS: Carvedilol 6.25 MG TAB PO SCH (20:36)
[2019-04-12 20:40] LABS: Lactic Acid 4.5 mmol/L (0.5-2.2)
[2019-04-12] MEDS ORDERED: Vancomycin HCl 1 GM in Premix Bag 1 BAG IVPB SCH (21:00)
--- NOTE | 2019-04-12 21:37 | ULT ---
EXAM: Bilateral lower extremity venous ultrasound HISTORY: Bilateral lower extremity pain and edema COMPARISON: 08/22/2018 TECHNIQUE: Multiplanar grayscale and color Doppler images were obtained in a bilateral lower extremit y venous ultrasound. Spectral analysis of the Doppler waveforms were performed. FINDINGS: The bilateral common femoral vein, profunda femoral veins, superficial femoral veins, and p opliteal veins are normal in appearance without visible thrombus. These vessels demonstrate normal compression, flow, and augmentation. The bilateral posterior tibial veins and greater saphenous veins are patent without evidence of DVT. Prominent lymph nodes are seen in the left inguinal region. IMPRESSION: No evidence of DVT.
--- NOTE | 2019-04-12 23:00 | CON ---
DATE OF CONSULTATION: 04/12/2019 INDICATION FOR CONSULTATION: A 58-year-old patient with a history of ischemic cardiomyopathy, severe peripheral vascular disease, tobacco abuse, noncompliance with followup of some medications. HISTORY OF PRESENT ILLNESS: This is a very unfortunate 58-year-old gentleman who has a long history of cardiomyopathy, has been followed by Dr. Baig. He apparently had some problems with some lower extremity varicosities and presented to [facility] a few days ago and had suturing of the apparently a bleed from a varicose vein. He presents now with a tender, swollen left leg which appears to be infected and also white blood cell count was significantly elevated at 33,000. He does have a left shift. The bands were about 2%, but otherwise has a left shift with a significant elevation of the neutrophils. He had some mild chest discomfort this morning, but mainly now is complaining of his leg pain. He is seeking medications for the pain. Otherwise, from a cardiac standpoint, his EKG did not show any acute changes. He does have some nonspecific T-wave inversions, but has a long history of cardiomyopathy. His BNP was significantly elevated at 12,612. His cardiac enzymes are abnormal with the first set being 0.699, increased up to 0.869. However, the MBs are negative and most likely this is a reflection of what appears to be likely sepsis in this gentleman. He also has lactic acid level of 5.5. Also, he has some acute renal insufficiency. His creatinine is 2.33 with a BUN of 37. This is somewhat abnormal for this gentleman. He has had some renal insufficiency in the past, but I do not believe it has been this elevated. Approximately, his range since November of this year has been anywhere from [address] up to 2.23 in March and has now been come down to 1.53 in April 10 and now is back up to 2.33. He has had multiple admissions and hospitalizations and emergency room visits. He has had a history of cardiomyopathy. He has had stent placements, myocardial infarctions. He has an AICD implant also, but this time from the cardiac standpoint, this appears to be actually overall relatively stable, appears to be his most significant problem is his left lower extremity. He does have pulses which are present by Doppler. I could not palpate pedal pulses. He has a very tender foot. An arterial Doppler has been ordered, but not yet performed. He eventually may need to undergo arteriogram and possible intervention in order to help healing of the left lower extremity. He has a left bruit noted and also on the right side, he has a soft bruit, but I could not palpate pulses even less so on the right side. The right foot is somewhat cool, but the left foot is actually warm to the touch. Otherwise, he denied any other palpitations, though he did have some shortness of breath also, but not more than his usual. PAST MEDICAL HISTORY: Please refer to the notes already dictated by Dr. Skinner. SOCIAL HISTORY: Please refer to the notes already dictated by Dr. Skinner. FAMILY HISTORY: Please refer to the notes already dictated by Dr. Skinner. REVIEW OF SYSTEMS: Please refer to the notes already dictated by Dr. Skinner. MEDICATIONS: Please refer to the notes already dictated by Dr. Skinner. ALLERGIES: PLEASE REFER TO THE NOTES ALREADY DICTATED BY DR. SKINNER. PHYSICAL EXAMINATION: GENERAL: Reveals an elderly gentleman, who does appear to be in acute distress. He is in pain with his left lower extremity. VITAL SIGNS: Blood pressure is 127/65. His heart rate was 81, respiratory rate was 22. He is actually afebrile. HEENT: Show the head to be normocephalic and atraumatic. He did have some mild JVD noted. Carotid pulses were present. CHEST: Clear to auscultation. CARDIOVASCULAR: Reveals a regular rate and rhythm at this time. I do not hear any gross murmurs. He had a very soft systolic murmur at the apex. The PMI is displaced to the left midaxillary line. ABDOMEN: Soft. Positive bowel sounds are present. EXTREMITIES: Showed ulceration of approximately a 0.5 cm on the left lower extremity in the lateral aspect, which appears to have some previous sutures perhaps and may still have some sutures present, but this is an open wound. He also has areas what appear to be multiple sores in the past. I could not palpate popliteal or pedal pulses, however, they were present by Doppler at least on the left side and we will need to re-evaluate on the right side. NEUROLOGIC: The patient does appear to be intact. IMPRESSION: 1. Likely sepsis associated with cellulitis of left lower extremity with an ulceration in the lower extremity due to severe peripheral vascular disease. His WBC is 33.3, hemoglobin was 9.6. After the Doppler evaluation, he may need to undergo further evaluation by arteriogram, so hopefully the renal function would improve. We will give him some IV fluids. We will be very careful with this since he has a severe decrease in left ventricular systolic function by previous echocardiogram, ejection fraction was 10% to 15%. He does have an AICD implant as noted above. At this time, he is a very ill gentleman who may need to undergo further intervention and also his BNP was 12,612, uncertain as to who his advanced research programs director is. At this time, the most urgent and pressing matter is his what appears to be cellulitis and sepsis. We will obtain blood cultures. We will obtain Doppler evaluation of lower extremities. 2. History of cardiomyopathy, which actually appears to be overall stable at this time. 3. History of diabetes, it will be dealt with by the primary care service. His blood sugar was elevated at 205 and this will need to be addressed. 4. Acute renal insufficiency, which is probably acute on chronic. This is somewhat difficult situation for this patient. We cannot volume overload him in order to help his kidneys due to his cardiomyopathy. As noted, his BNP was 12,612. In difficult situation, he may eventually need to be placed on dobutamine in order to increase the cardiac output and then give volume in order to assist the kidneys. We will need to further evaluate this after he has undergone a Doppler and also after he has been treated with IV antibiotics, hopefully his symptoms will improve. He will need to have wound care for the left lower extremity ulceration. Further care of the patient will be by Dr. Baig when he visits with the patient tomorrow. Job ID: [id number] [facility]
[2019-04-12 23:50] LABS: Lactic Acid 3.6 mmol/L (0.5-2.2)
[2019-04-13 04:13] LABS: Amphetamine Not Detected (NotDetected); Barbiturates Screen Not Detected (NotDetected); Benzodiazepine Screen Not Detected (NotDetected); Cocaine Metabolite Screen Detected (NotDetected); Medtox Control Line Valid? VALID (VALID); Medtox Reader # READER 4; Methadone Not Detected (NotDetected); Methamphetamine Not Detected (NotDetected); Opiate Screen Detected (NotDetected); Oxycodone Screen Not Detected (NotDetected); Phencyclidine (PCP) Not Detected (NotDetected); THC/Cannabinoid Screen Not Detected (NotDetected); Tricyclic Screen Not Detected (NotDetected)
[2019-04-13 07:06] LABS: Anion Gap 18 mmol/L (10-20); BUN (Urea Nitrogen) 49 mg/dL (8.4-25.7); Calc. Creatinine Clearance 34 mL/min (70-130); Carbon Dioxide 19 mmol/L (22-29); Chloride 103 mmol/L (98-107); Estimated GFR-MDRD 28; Glucose 132 mg/dL (70-105); Potassium 5.2 mmol/L (3.5-5.1); Sodium 135 mmol/L (136-145)
[2019-04-13 07:13] LABS: Hemoglobin 9.5 g/dL (14.0-18.0); Mean Corpuscular HGB CONC 30.7 g/dL (32.0-36.0); Mean Corpuscular Volume 94.6 fL (78.0-98.0); Mean Platelet Volume 10.2 fL (7.4-10.4); Platelet Count 183 thou/uL (130-400); Red Blood Cell (RBC) Count 3.25 mill/uL (4.70-6.10); White Blood Cell (WBC) Count 38.7 thou/uL (4.8-10.8)
[2019-04-13] MEDS: Mometasone/Formoterol 120 PUFF INHALER INH SCH ×2 (07:29→18:11)
--- NOTE | 2019-04-13 08:03 | PDOC.PN ---
- Subjective Encounter Start Date: 04/13/19 Encounter Start Time: 09:43 Subjective: left leg still painfull - Objective Resuscitation Status - Order Detail: 04/12/19 14:28 Resuscitation Status Routine Resuscitation Status: FULL: Full Resuscitation MAR Reviewed: Yes Vital Signs & Weight: Vital Signs (12 hours) Temp Pulse Resp BP BP Pulse Ox 04/13/19 04:00 97.6 F 78 13 99/65 99 04/12/19 23:53 97.7 F 78 12 109/64 99 04/12/19 20:36 112/58 L 04/12/19 20:07 97.4 F L 84 20 112/58 L 100 Weight Weight 188 lb 9.6 oz I&O: 04/12/19 04/13/19 04/14/19 06:59 06:59 06:59 Intake Total 1037 Output Total 100 Balance 937 Result Diagrams: 04/13/19 06:21 04/13/19 06:21 Additional Labs: Accuchecks 04/13/19 04/12/19 04/12/19 05:17 20:49 16:51 POC Glucose 153 H 182 H 178 H Phys Exam - Physical Examination Neck: no JVD Respiratory: clear to auscultation bilateral Cardiovascular: RRR, no significant murmur Gastrointestinal: soft, positive bowel sounds warm tender LL extremity Dx/Plan (1) Cellulitis and abscess of left leg Code(s): L03.116 - CELLULITIS OF LEFT LOWER LIMB; L02.416 - CUTANEOUS ABSCESS OF LEFT LOWER LIMB Status: Acute (2) Cardiomyopathy Code(s): I42.9 - CARDIOMYOPATHY, UNSPECIFIED Status: Acute Qualifiers: Cardiomyopathy type: unspecified Qualified Code(s): I42.9 - Cardiomyopathy , unspecified (3) Chest pain Code(s): R07.9 - CHEST PAIN, UNSPECIFIED Status: Acute Qualifiers: Chest pain type: unspecified Qualified Code(s): R07.9 - Chest pain, unspecified (4) Demand ischemia of myocardium Code(s): I24.8 - OTHER FORMS OF ACUTE ISCHEMIC HEART DISEASE Status: Acute (5) Hyperlipidemia Code(s): E78.5 - HYPERLIPIDEMIA, UNSPECIFIED Status: Chronic Qualifiers: Hyperlipidemia type: unspecified Qualified Code(s): E78.5 - Hyperlipidemia , unspecified (6) DM type 2 (diabetes mellitus, type 2) Status: Chronic Qualifiers: Diabetes mellitus mcc insulin use: with mcc use Diabetes mellitus complication status: with kidney complications Diabetes mellitus complication detail: with chronic kidney disease Chronic kidney disease stage : stage 3 (moderate) Qualified Code(s): E11.22 - Type 2 diabetes mellitus with diabetic chronic kidney disease; N18.3 - Chronic kidney disease, stage 3 ( moderate); Z79.4 - skilled nursing (current) use of insulin Comment: Continue Glipizide, ISS, ADA (7) Hypertension Code(s): I10 - ESSENTIAL (PRIMARY) HYPERTENSION Status: Chronic (8) Noncompliance with medication regimen Code(s): Z91.14 - PATIENT'S OTHER NONCOMPLIANCE WITH MEDICATION REGIMEN Status : Chronic (9) Tobacco abuse Code(s): Z72.0 - TOBACCO USE Status: Chronic Comment: Tobacco cessation resources - Plan cont iv antibx, ID consult -: cont creg , etc -: cont accu/ss * .
[2019-04-13 08:34] LABS: Band 17 % (5-11); Lymphocytes 1 % (21-51); MDiff Complete? YES; Monocytes 5 % (0-10); Neutrophil 76 % (42-75); RBC Morphology Normal; Reactive Lymphocytes 1 % (0-10)
--- NOTE | 2019-04-13 08:37 | ULT ---
BILATERAL LOWER EXTREMITY ARTERIAL DOPPLER ULTRASOUND: Date: 04/13/19 HISTORY: Evaluate arterial blood flow to bilateral lower extremities, left lower extremity wound. TECHNIQUE: Multiplanar grayscale sonographic imaging arterial structures bilateral lower extremities obtained with color flow and spectral analysis. FINDINGS: There is mild calcified plaque in the right common femoral artery. There is atherosclerotic plaque wi thin the profunda femoral artery. High resistance monophasic waveforms with turbulent blood flow noted within the right PR[employer]ER STAR SIGNAL and right profunda femoral artery. The right superficial femoral artery is heavily diseased, with a tardus parvus waveform within the proximal right SFA and a high resistance biphasic tardus parvus waveform within the mid right SFA and distal right SFA. Right popl iteal artery is heavily diseased with a monophasic tardus parvus waveform. Right anterior tibial artery, posterior tibial artery, and dorsalis pedis arteries are patent and demonstrate very slow keyonna w with tardus parvus waveforms. The left common femoral artery is patent and demonstrates a tardus parvus waveform with turbulent blo od flow. Similar waveform noted within the profunda femoral artery on the left. The left superficial femoral artery is heavily diseased with a low amplitude abnormal tardus parvus w aveform proximally, in its midportion, and distally. Popliteal artery demonstrates a tardus parvus low amplitude waveform as does the left posterior tibial artery, anterior tibial artery, and dorsalis pedis artery. There is very slow blood flow within the left lower extremity from the level of the proximal SFA through the dorsalis pedis artery. Similar abnormally slow low amplitude blood flow note d within the right lower extremity from the mid superficial femoral artery through the dorsalis pedis artery. VESSEL PSV (cm/sec) Right PRESS TENDER STAR SIGNAL 40 Right SFA proximal 58 Right SFA distal 12 Right profunda femoral artery 27 Right popliteal artery 25 Right posterior tibial artery 10 Right anterior tibial artery 58 Right dorsalis pedis artery 19 Left PRESS TENDER STAR SIGNAL 155 Left SFA proximal 25 Left SFA distal 16 Left profunda femoral artery 181 Left popliteal artery 21 Left posterior tibial artery 16 Left anterior tibial artery 7 Left dorsalis pedis artery 9 IMPRESSION: Very severe arterial disease bilaterally. Recommend further evaluation via CT angiogram of the abdome n, pelvis, and bilateral lower extremities. Transcribed Date/Time: 04/13/2019 10:07 AM
[2019-04-13] MEDS: Enoxaparin Sodium 30 MG/0.3 ML SYRINGE SC SCH (08:51)
[2019-04-13] MEDS: Aspirin 325 mg Enteric Coated Tablet PO SCH (08:51)
[2019-04-13] MEDS: Furosemide 40 MG TAB PO SCH ×2 (08:52→13:57)
[2019-04-13] MEDS: Carvedilol 6.25 MG TAB PO SCH ×2 (08:52→20:35)
[2019-04-13] MEDS: Sodium Chloride 0.9% 1,000 ML IV SCH ×3 (08:52→22:31)
[2019-04-13] MEDS: Morphine 4 MG/ML VIAL SLOW IVP PRN ×2 (09:28→13:55)
[2019-04-13 13:56] LABS: Lactic Acid 2.2 mmol/L (0.5-2.2)
--- NOTE | 2019-04-13 16:32 | PDOC.EVN ---
Event Note - Event Note Event Note: Consult dictated. He will likely need amputation. I suspect he won't heal BKA. I would have him seen by Dr. Gil or Bill for that discussion but he is not interested at this time. Will re-assess tomorrow. He understands that this is potentially life threatening with potentially developing severe sepsis and worsening renal failure. Prognosis poor
--- NOTE | 2019-04-13 17:01 | CON ---
DATE OF CONSULTATION: 04/13/2019 REASON FOR CONSULTATION: Left lower extremity inflammatory process with ulcer and bacteremia. HISTORY OF PRESENT ILLNESS: A 58-year-old with a history of ischemic cardiomyopathy with AICD in place, hyperlipidemia, hypertension, COPD with prior stents, who developed bleeding in the left leg. At the beginning of April, he presented to the emergency room with chest pain and shortness of breath. On April 09, he was brought in with chronic left leg wound with varicose vein involvement and bleeding. At that time, his temperature was 97.8, blood pressure was normal, and his extremity showed 2 x 1 cm wound in the left lateral lower extremity. No cellulitis. No bleeding noted. Pulses were described as normal. He was released. Two days later, he came back with chest pain and he was discharged home. He kept having intermittent bleeding from the leg and he went to [facility] and reportedly, they put a stitch in his vein, which stopped bleeding. After that, he comes now with worsening pain in the left leg for the past few days. Bleeding did not recur. There was some chest pain and some dyspnea and some abdominal pain. No constipation or diarrhea. One episode of vomiting. Initial temperature 98.7, pulse 89, blood pressure 115/72. The lower extremity showed 2 x 2 cm ulcerated lesion on the lateral aspect of the left lower leg. Pulses are described as normal. On March 20, 2019, Dr. Han did incision and drainage of left lower extremity wound. The operative report was reviewed. There was evidence of purulent drainage. An area of necrotic tissue was removed. No underlying cavity noted. No purulence. He did have venous bleeding at that time, which was oversewn using Vicryl absorbable suture. He had a soft tissue ultrasound on 04/12, which showed no evidence of abscess. There was an abdomen and pelvis CT from December of this year with atherosclerotic disease, right heart failure, cardiomegaly, hepatosplenomegaly, ascites, urinary bladder wall prominence, fluid in the gallbladder fossa. Currently, Mr. Irving is lying on his right lateral decubitus. He appears to be in some distress from pain in the left leg. Denies headaches. He has disconjugate eyes and his vision has been chronically impaired. No sore throat, odynophagia, or dysphagia. No dyspnea or chest pain. No abdominal pain. His pain in the left lower extremity starts below the knee and goes all the way to the ankle, left side and he rates it at 9/10. PAST MEDICAL HISTORY: Includes ischemic cardiomyopathy, AICD in place; type 2 diabetes; renal insufficiency stage 3; previous use of cocaine just up to a month and a half ago; COPD; chronic smoking, ongoing; hypertension; ulcer in the left lower extremity, which was recently I and D'd by Dr. Han and I do not think there are any pathology reports. ALLERGIES: NONE. MEDICATIONS: Currently, on DuoNeb, Ecotrin, cefepime, Lovenox, levofloxacin, vancomycin. FAMILY HISTORY: Hypertension, coronary artery disease. SOCIAL HISTORY: Lives in [place]. Smokes daily. Prior cocaine use. No alcoholic beverage use. He used to drink in the past according to family members. PHYSICAL EXAMINATION: VITAL SIGNS: T-max 98.6, blood pressure 106/59, pulse 68, respirations 18, O2 saturation 97 on 2 L. SKIN: The patient has an ulcer, measuring about 2 cm x 1.5 cm, left lateral leg, mid aspect, with necrotic base and yellow slough and dried up brownish skin around the ulcer, little bit of undermining. There are a few shallow ulcerations, much smaller, distally placed and also proximally placed from this central ulceration. The area in the leg is markedly tender. Most of the tenderness is localized to the popliteal region on the left side, but some of it in the anterior portions as well. The patient has a peripheral IV access and is voiding in the urinal. GENERAL: Chronically ill appearing. HEENT: He has disconjugate eyes. Pupils are miotic. Conjunctivae are normal. Nasal passages are patent. Oral cavity with only a few remaining teeth with marked decay. Oral mucosa otherwise normal. NECK: Supple. No jugular vein distention. No thyromegaly. LUNGS: Symmetric air entry with no crackles or wheezing. HEART: S1 and S2. Diminished heart sounds. No murmurs. ABDOMEN: Moderately distended with a question of positive fluid wave. GENITOURINARY: No bladder distention. No genital abnormalities. EXTREMITIES: I could not feel any popliteal or dorsalis pedis or posterior tibialis pulses. There is trace edema in the lower extremities. He is able to move extremities symmetrically, but is diffusely weak. Most of his distress is from the pain in the left lower extremity. NEUROLOGIC: A little bit drowsy from the morphine that was given recently. He knows his name. He knows he is in the hospital. He knew the city and recognized family members. LABORATORY DATA: White cell count is 33,000, now is 38.7; hemoglobin 9.5; platelets 183 with 17% bands. Sodium 135, creatinine 2.85. The previous creatinine from April was 1.53. AST 49, ALT 20, alkaline phosphatase was 101, bilirubin 4.3. BNP 12,612. Albumin 3.4. Toxicology with cocaine metabolites, opioids. Microbiology with gram-negative rods retrieved. [employer] was not able to provide us with an early identification. Venogram did not show any evidence of deep vein thrombosis. ASSESSMENT: 1. Ischemic cardiomyopathy. 2. Peripheral vascular disease. 3. Ulceration, lateral aspect of the left leg for the past few weeks. 4. Worsening inflammatory process over the past few days with gram-negative rafat bacteremia. 5. Likely chronic liver disease with ascites, portal hypertension, could be related to his cardiomyopathy plus the other risk factors described. DISCUSSION: The differential diagnosis includes cellulitis associated with the ulcer in the left leg with extension into the popliteal area. No evidence of bone or joint infection. Endocarditis is not ruled out, particularly in view of the AICD in place. No evidence of pneumonia. At this point, we will order an arterial duplex ultrasound. Switch him to meropenem and levofloxacin until we have final identification of the organism. I would not recommend surgical intervention at this point in time except if he needs an amputation, I think we can try to manage this conservatively for the time being, but we will keep monitoring it. We will not be able to image with MRI because of the pacemaker with a defibrillator. Also, CT scan is not going to be informative because of the renal function, prevents the administration of contrast. The organism is probably an Acinetobacter and other oxidase positive organisms are also considered possible. Job ID: [id number]
[2019-04-13] MEDS: MEROPENEM 1 GM/50 ML 1 GM in Premix Bag 1 BAG IVPB SCH (17:12)
[2019-04-13] MEDS ORDERED: Cefepime 2 GM in Sodium Chloride 0.9% 100 ML IVPB SCH (21:00)
[2019-04-13] MEDS: Acetaminophen/Codeine 30-300mg Tablet PO PRN (22:21)
--- NOTE | 2019-04-13 22:34 | CON ---
DATE OF CONSULTATION: 04/13/2019 CHIEF COMPLAINT: Left lower extremity infection. HISTORY OF PRESENT ILLNESS: This is a 58-year-old who is well known to me from previous prolonged admission to the hospital. He has severe peripheral vascular disease as well as venous stasis with chronic venous stasis wounds to his bilateral lower extremities and evidence of chronic arterial and venous disease to both lower extremities. Previously, he was admitted to the hospital after he had a varicocele that was bleeding, sutured at [facility]. He then came here with an infection in this area. I removed the stitch and opened the wound to reveal no significant purulence at that time. He was in the hospital for IV antibiotics. His symptoms improved. He was discharged home. He was supposed to follow up with me, but he did not. He now returns with severe pain to the left lower extremity even to light pressure. There is no drainage from the wound. There is no drainable abscess on ultrasound. He has pain with dorsiflexion of his left foot. He is not febrile or tachycardic, but he has significant leukocytosis and a worsening renal function. PAST MEDICAL HISTORY: Includes diabetes mellitus type 2, bilateral lower extremity peripheral vascular disease, coronary artery disease, cardiomyopathy, COPD, and hypertension. PAST SURGICAL HISTORY: As above. MEDICATIONS: Taken at home include Coreg, glipizide, Lasix, lisinopril, aspirin, potassium chloride, amiodarone, and Aldactone. SOCIAL HISTORY: Previous cocaine abuse. He smokes now, but no other alcohol. Denies any recent drug use. REVIEW OF SYSTEMS: Otherwise negative. PHYSICAL EXAMINATION: VITAL SIGNS: Pulse 71, blood pressure is 92/60, respirations are 16. His temperature is 98.8. CHEST: Coarse breath sounds. HEART: Regular rate. ABDOMEN: Soft, nontender. Bilateral femoral pulses are palpable. EXTREMITIES: On examination of the bilateral lower extremities, there is chronic venous stasis and arterial disease to the skin of the bilateral legs below the knees. There were multiple superficial wounds to bilateral lower extremities. It was nontender to the palpation of the right calf muscle. Left lower extremity below the knee, he is exquisitely tender to even mild palpation all the way down. His previous wound to the lateral leg, there is a dressing on it, which is removed to reveal no purulence. No cavity. No fluctuance. LABORATORY DATA: White cell count is 38, hemoglobin 9, platelet count is 183. Sodium 135, potassium 5.2, creatinine 2.85, glucose 132, creatine kinase 566. Soft tissue ultrasound was negative. Extremity arterial study ultrasound showed significant arterial disease to the bilateral lower extremities. ASSESSMENT: Left lower extremity severe infection, could be fasciitis. This is certainly worsened by his continued smoking and severe peripheral vascular disease. I think Mr. Irving needs an amputation of this leg. It would likely probably have to be above the knee. We discussed that it at the bedside. He is not consenting to any further consideration for amputation at this time and would like to hold off and try antibiotics. I explained to him that his infectious count is both very high and his creatinine has worsened, which signifies worse prognosis for this acute event. I offered to have 1 of the surgeons that does the amputations come talk to him. He turned that down today. We will continue to follow with you. If he need an amputation, which would be above the knee, would defer that to the CV surgeons or the General surgeons that perform the amputations, but I will arrange for that if he consents. Job ID: [id number]
[2019-04-14] MEDS ORDERED: Morphine 2 MG/ML SYRINGE SLOW IVP SCH ×2 (02:45→11:30)
[2019-04-14 05:01] LABS: Anion Gap 13 mmol/L (10-20); BUN (Urea Nitrogen) 61 mg/dL (8.4-25.7); Calc. Creatinine Clearance 30 mL/min (70-130); Calcium 9.1 mg/dL (7.8-10.44); Carbon Dioxide 24 mmol/L (22-29); Chloride 102 mmol/L (98-107); Estimated GFR-MDRD 24; Glucose 141 mg/dL (70-105); Potassium 5.5 mmol/L (3.5-5.1); Sodium 133 mmol/L (136-145)
[2019-04-14] MEDS: MEROPENEM 1 GM/50 ML 1 GM in Premix Bag 1 BAG IVPB SCH ×2 (05:13→16:52)
[2019-04-14 05:31] LABS: Anisocytosis SLIGHT = 6-15 cells (100X) (0-5/hpf); Band 16 % (5-11); Eosinophils 1 % (0-10); Lymphocytes 7 % (21-51); MDiff Complete? YES; Mean Corpuscular HGB CONC 30.3 g/dL (32.0-36.0); Mean Corpuscular Hemoglobin 28.9 pg (27.0-31.0); Mean Corpuscular Volume 95.3 fL (78.0-98.0); Mean Platelet Volume 9.8 fL (7.4-10.4); Monocytes 3 % (0-10); Neutrophil 73 % (42-75); Platelet Count 186 thou/uL (130-400); RBC Distribution Width 15.7 % (11.5-14.5); Red Blood Cell (RBC) Count 3.13 mill/uL (4.70-6.10); White Blood Cell (WBC) Count 28.8 thou/uL (4.8-10.8)
[2019-04-14] MEDS: Mometasone/Formoterol 120 PUFF INHALER INH SCH ×2 (07:06→18:17)
[2019-04-14] MEDS: Acetaminophen/Codeine 30-300mg Tablet PO PRN ×2 (08:29→14:14)
[2019-04-14] MEDS: Furosemide 40 MG TAB PO SCH ×2 (08:30→14:15)
[2019-04-14] MEDS: Aspirin 325 mg Enteric Coated Tablet PO SCH (08:30)
[2019-04-14] MEDS: Enoxaparin Sodium 30 MG/0.3 ML SYRINGE SC SCH (08:30)
[2019-04-14] MEDS: Carvedilol 6.25 MG TAB PO SCH ×2 (10:18→20:51)
[2019-04-14] MEDS: Sodium Chloride 0.9% 1,000 ML IV SCH ×2 (10:19→15:20)
--- NOTE | 2019-04-14 14:55 | PDOC.PN ---
- Subjective Encounter Start Date: 04/14/19 Encounter Start Time: 11:30 Subjective: pt up in bed complains of pain to his left leg - Objective Resuscitation Status - Order Detail: 04/12/19 14:28 Resuscitation Status Routine Resuscitation Status: FULL: Full Resuscitation Vital Signs & Weight: Vital Signs (12 hours) Temp Pulse Resp BP BP Pulse Ox 04/14/19 11:30 70 20 105/64 04/14/19 11:24 97.3 F L 72 20 93/66 100 04/14/19 10:18 103/55 L 04/14/19 07:49 97.6 F 72 20 96/58 L 92 L 04/14/19 07:06 83 16 95 04/14/19 04:06 73 14 96/50 L 04/14/19 03:43 98.2 F 66 14 100/55 L 93 L Weight Weight 196 lb 6.4 oz I&O: 04/13/19 04/14/19 04/15/19 06:59 06:59 06:59 Intake Total 1037 2516 Output Total 100 275 Balance 937 2241 Result Diagrams: 04/14/19 04:20 04/14/19 04:20 Additional Labs: Accuchecks 04/14/19 04/14/19 04/13/19 10:57 05:32 20:57 POC Glucose 180 H 152 H 160 H 04/13/19 17:03 POC Glucose 148 H Phys Exam - Physical Examination Neck: no nodes, no JVD, supple, full ROM Respiratory: no wheezing, no rales, no rhonchi, wheezing present, clear to auscultation bilateral Cardiovascular: RRR, no significant murmur, no rub, gallop, irregular Gastrointestinal: soft, non-tender, no distention, positive bowel sounds Musculoskeletal: edema present bilateral lower ext Deviation from normal: small open wound to left arreola area, erythema around left lower ext Dx/Plan (1) Cellulitis and abscess of left leg Code(s): L03.116 - CELLULITIS OF LEFT LOWER LIMB; L02.416 - CUTANEOUS ABSCESS OF LEFT LOWER LIMB Status: Acute (2) Chest pain Code(s): R07.9 - CHEST PAIN, UNSPECIFIED Status: Acute Qualifiers: Chest pain type: unspecified Qualified Code(s): R07.9 - Chest pain, unspecified (3) Lower extremity ulceration Code(s): L97.909 - NON-PRS CHRONIC ULC UNSP PRT OF UNSP LOW LEG W UNSP SEVERITY Status: Acute Qualifiers: Laterality: left Comment: Continue Zosyn/Vancomycin, WCT for local care, sutures removed, consult Gen surgery for I&D for suspected small abscess (4) CAD (coronary artery disease) Code(s): I25.10 - ATHSCL HEART DISEASE OF [place] CORONARY ARTERY W/O ANG PCTRS Status: Chronic Qualifiers: Coronary Disease-Associated Artery/Lesion type: [place] artery [place] vs. transplanted heart: [place] heart Associated angina: without angina Qualified Code(s): I25.10 - Atherosclerotic heart disease of [place] coronary artery without angina pectoris (5) CKD (chronic kidney disease) stage 3, GFR 30-59 ml/min Status: Chronic Comment: Avoid nephrotoxic meds and limit contrast exposure - Plan spoke with pt about possible getting surgical evaluation based of on -: surgeon's notes. Pt states that if he has to amputate his foot which will -: cause his pain to improve he will, but he wanted me to talk with his sister -: I called sister (ezekiel) 2 times and left message. I did discuss the -: improtance of his leg and possible . He states it is a family decision * . and wants to me to talk with his sister before he makes any decision. His sister gets off at 2130. Review of Systems - Review of Systems Respiratory: negative: Cough, Dry, Shortness of Breath, Hemoptysis, SOB with Excertion, Pleuritic Pain, Sputum, Wheezing Cardiovascular: negative: chest pain, palpitations, orthopnea, paroxysmal nocturnal dyspnea, edema, light headedness, other Gastrointestinal: negative: Nausea, Vomiting, Abdominal Pain, Diarrhea, Constipation, Melena, Hematochezia, Other Musculoskeletal: Leg Pain - Medications/Allergies Allergies/Adverse Reactions: Allergies Allergy/AdvReac Type Severity Reaction Status Date / Time No Known Allergies Allergy Verified 03/15/19 23:33 Medications: Current Medications Acetaminophen/Codeine Phosphate (Tylenol #3) 1 tab PO Q4H PRN PRN Reason: Pain Last Admin: 04/14/19 14:14 Dose: 1 tab Albuterol/Ipratropium (Duoneb) 3 ml NEB [id number] PRN PRN Reason: SOB &/or Wheezing Aspirin (Ecotrin) 325 mg PO DAILY [facility] Last Admin: 04/14/19 08:30 Dose: 325 mg Carvedilol (Coreg) 6.25 mg PO BID [facility] Last Admin: 04/14/19 10:18 Dose: 6.25 mg Enoxaparin Sodium (Lovenox) 30 mg SC 0900 [facility] Last Admin: 04/14/19 08:30 Dose: 30 mg Furosemide (Lasix) 40 mg PO 0900,1400 [facility] Last Admin: 04/14/19 14:15 Dose: 40 mg Sodium Chloride (Normal Saline 0.9%) 1,000 mls @ 75 mls/hr IV .[id number] [facility] Last Admin: 04/14/19 10:19 Dose: Not Given Levofloxacin 500 mg/ Device 100 mls @ 100 mls/hr IVPB Q24HR [facility] Last Admin: 04/14/19 10:22 Dose: 100 mls Meropenem 1 gm/ Device 50 mls @ 100 mls/hr IVPB 0500,1700 [facility] Last Admin: 04/14/19 05:13 Dose: 50 mls Mometasone Furoate/Formoterol Fumar (Dulera 200 Mcg/5 Mcg Inhaler) 2 puff INH BID-RT [facility] Last Admin: 04/14/19 07:06 Dose: 2 puff Morphine Sulfate (Morphine) 4 mg SLOW IVP Q4H PRN PRN Reason: Breakthrough Pain Last Admin: 04/13/19 13:55 Dose: 4 mg Sodium Chloride (Flush - Normal Saline) 10 ml IVF Q12HR [facility] Last Admin: 04/14/19 08:34 Dose: Not Given
[2019-04-14] MEDS ORDERED: Sodium Chloride 0.9% 1,000 ML IV SCH (15:45)
[2019-04-14 16:29] LABS: Bacteria/HPF None Seen HPF (None Seen); RBC/HPF 0-3 HPF (0-3); Squamous Epithelial 0-3 HPF (0-3); WBC/HPF None Seen HPF (0-3)
[2019-04-14 16:31] LABS: Pathc Cast-AUWi Flag 2.85 (0-2.49)
--- NOTE | 2019-04-14 16:31 | PDOC.GSPN ---
Surgery Progress Note: Subj - Subjective Narrative: still complaining of left leg pain Surgery Progress Note: Obj - Vital signs Vital signs: Vital Signs - Most Recent Temp Pulse Resp BP Pulse Ox 97.6 F 71 20 110/61 98 04/14/19 15:13 04/14/19 15:13 04/14/19 15:13 04/14/19 15:13 04/14/19 15:13 - Physical Exam General: no distress Additional exam: Extremity: chronic arterial disease to left leg; still significant pain on exam below the knee; no obvious abscess; open wound shows no necrosis Surgery Progress Note: Results - Labs Result Diagrams: 04/14/19 04:20 04/14/19 04:20 Lab results: Laboratory Results - last 24 hr 04/14/19 04/14/19 04/14/19 04:20 04:20 05:32 WBC 28.8 H RBC 3.13 L Hgb 9.0 L Hct 29.9 L MCV 95.3 MCH 28.9 MCHC 30.3 L RDW 15.7 H Plt Count 186 MPV 9.8 Neutrophils % (Manual) 73 Band Neuts % (Manual) 16 H Lymphocytes % (Manual) 7 L Monocytes % (Manual) 3 Eosinophils % (Manual) 1 Anisocytosis SLIGHT = 6-15 cells Sodium 133 L Potassium 5.5 H Chloride 102 Carbon Dioxide 24 Anion Gap 13 BUN 61 H Creatinine 3.20 H Estimated GFR (MDRD) 24 Glucose 141 H POC Glucose 152 H Calcium 9.1 04/14/19 10:57 WBC RBC Hgb Hct MCV MCH MCHC RDW Plt Count MPV Neutrophils % (Manual) Band Neuts % (Manual) Lymphocytes % (Manual) Monocytes % (Manual) Eosinophils % (Manual) Anisocytosis Sodium Potassium Chloride Carbon Dioxide Anion Gap BUN Creatinine Estimated GFR (MDRD) Glucose POC Glucose 180 H Calcium Surgery Progress Note: A/P - Problem (1) Cellulitis and abscess of left leg Current Visit: Yes Code(s): L03.116 - CELLULITIS OF LEFT LOWER LIMB; L02.416 - CUTANEOUS ABSCESS OF LEFT LOWER LIMB Status: Acute - Plan Plan: concerning lower extremity pain associated with high WBC and renal failure plan to discuss with CV surgery; worrisome to need amputation Addendum - Physician - Physician Attestation Date/Time: 04/14/19 [id number] I personally performed or re-performed the physical examination and medical decision making. I have verified all student documentation or findings, including history, physical exam and/or medical decision making. I'm going to discuss with Dr. Khan. He likely needs amputation above the knee.
[2019-04-14 16:52] LABS: Hyaline Casts/LPF 7-10 HYALINE CAST LPF (0-3 Hyaline); Other Casts/LPF None Seen LPF (0-3 Hyaline)
[2019-04-14] MEDS: Morphine 4 MG/ML VIAL SLOW IVP PRN (16:52)
--- NOTE | 2019-04-14 17:09 | RAD ---
EXAM: Single view of the chest HISTORY: Shortness of breath COMPARISON: 04/12/2019 FINDINGS: Single view of the chest shows an enlarged but stable cardiomediastinal silhouette. The pa cemaker is unchanged in position. There is no evidence of consolidation, mass, or pleural effusion. The bones are unremarkable. IMPRESSION: Cardiomegaly
[2019-04-14] MEDS ORDERED: Furosemide 40 MG/4 ML VIAL SLOW IVP SCH (19:45)
[2019-04-14] MEDS ORDERED: Heparin 5,000 UNITS/ML VIAL SC SCH (21:00)
--- NOTE | 2019-04-15 00:28 | CON ---
DATE OF CONSULTATION: CONSULTING PHYSICIAN: Saul Avila MD REASON FOR CONSULTATION: Acute on chronic kidney disease. IMPRESSION: 1. Acute on chronic kidney disease. This is likely cytokine-mediated in the context of infection. 2. Moderately advanced chronic kidney disease in the context of vasculopathy and cardiomyopathy. 3. Anemia, possibly anemia of chronic kidney disease plus or minus blood-loss anemia from recent bleed. 4. Metabolic acidosis, which is much improved. 5. Hyperkalemia in the context of reduced GFR. PLAN: 1. The patient is obviously hypervolemic at this point. Therefore, we will discontinue current IV fluid. We will have this patient receive parenteral IV diuretics. We will maintain this on p.r.n. basis. 2. Renally dose all medications for low GFR and avoid potentially nephrotoxic agents. 3. Parathyroid hormone, ferritin and iron studies. 4. No emergent indication for renal replacement therapy (hemodialysis) at this point. 5. Further management will be dependent on the clinical course. HISTORY OF PRESENT ILLNESS: History is that of a 58-year-old gentleman who presented here with left lower extremity pain, open wound with a recent history of ruptured varicose veins. The patient did bleed quite heavy according to him and eventually was secured with sutures. The patient does have features suggestive of infectious process in the context of possible cellulitis and significant leukocytosis. The patient presented with a creatinine of about 2.8 and over the course of hospitalization has been above 3 for the need for renal consultation. PAST MEDICAL HISTORY: Significant for chronic kidney disease, systolic congestive heart failure, type 2 diabetes, substance abuse and COPD. MEDICATIONS: Reviewed and as documented on frooly. ALLERGIES: NO KNOWN DRUG ALLERGIES. FAMILY HISTORY: Not significantly related to present illness. SOCIAL HISTORY: Significant for tobacco use. No alcohol. Remote history of cocaine use. REVIEW OF SYSTEMS: As documented in the body of the history. All the other systems were reviewed and found not to be significantly related to presenting illness. PHYSICAL EXAMINATION: GENERAL: The patient was found to be ill looking. VITAL SIGNS: Noted with the following vital signs; afebrile, temperature 97.6, pulse 71, respiratory rate of 20, O2 saturations of 98% with blood pressure 110/ 61. HEENT: Unremarkable. Moist oral mucosa. NECK: Supple. No conjunctival injection or icterus. CARDIOVASCULAR: First and second heart sounds were heard. RESPIRATORY: Clear to auscultation anteriorly. DIGESTIVE: Revealed distended abdomen with positive bowel sounds. Possible ascites. EXTREMITIES: Showed multiple skin ulcerations and slight peripheral edema. NEUROLOGIC: Alert. No lateralizing signs. LYMPHATICS: No peripheral lymphadenopathy. SUMMARY: A 58-year-old gentleman with acute on chronic kidney disease, presented here with lower extremity cellulitis. Thank you for this consultation. We will follow with you. Job ID: [id number] MTDD
[2019-04-15] MEDS: Morphine 4 MG/ML VIAL SLOW IVP PRN ×3 (03:29→20:50)
[2019-04-15] MEDS: MEROPENEM 1 GM/50 ML 1 GM in Premix Bag 1 BAG IVPB SCH ×2 (04:24→16:34)
[2019-04-15 04:30] LABS: Anion Gap 17 mmol/L (10-20); BUN (Urea Nitrogen) 65 mg/dL (8.4-25.7); Calc. Creatinine Clearance 32 mL/min (70-130); Calcium 8.8 mg/dL (7.8-10.44); Carbon Dioxide 20 mmol/L (22-29); Chloride 99 mmol/L (98-107); Estimated GFR-MDRD 25; Glucose 193 mg/dL (70-105); Iron 18 ug/dL (65-175); Iron 21 ug/dL (65-175); Iron Binding Capacity, Total 259 mcg/dL (261-462); Potassium 5.1 mmol/L (3.5-5.1); Sodium 131 mmol/L (136-145)
[2019-04-15 04:39] LABS: Band 1 % (5-11); Hemoglobin 9.1 g/dL (14.0-18.0); Hypochromia SLIGHT = 6-15 cells (100X) (0-5/hpf); Lymphocytes 8 % (21-51); MDiff Complete? YES; Mean Corpuscular HGB CONC 30.6 g/dL (32.0-36.0); Mean Corpuscular Hemoglobin 29.1 pg (27.0-31.0); Mean Platelet Volume 9.7 fL (7.4-10.4); Monocytes 5 % (0-10); Neutrophil 86 % (42-75); Nucleated RBC 1 % (0); Platelet Count 183 thou/uL (130-400); Platelet Morphology Comment Appears Adequate; RBC Distribution Width 15.5 % (11.5-14.5); Red Blood Cell (RBC) Count 3.13 mill/uL (4.70-6.10); White Blood Cell (WBC) Count 24.1 thou/uL (4.8-10.8)
[2019-04-15] MEDS: Mometasone/Formoterol 120 PUFF INHALER INH SCH ×2 (07:15→19:38)
[2019-04-15] MEDS: Aspirin 325 mg Enteric Coated Tablet PO SCH (09:09)
[2019-04-15] MEDS: Enoxaparin Sodium 30 MG/0.3 ML SYRINGE SC SCH (09:10)
[2019-04-15] MEDS: Carvedilol 6.25 MG TAB PO SCH ×2 (09:10→20:49)
[2019-04-15] MEDS: Furosemide 40 MG/4 ML VIAL SLOW IVP SCH (14:47)
--- NOTE | 2019-04-15 15:32 | PDOC.PALCO ---
Palliative Care Consult - Consult Details Requesting Physician: Dr Batista Reason for Consult: goals of care, assistance with communication prognosis/ disease - Pertinent HPI Recent hospitalization secondary to leg pain/wound. Patient chronically ill. Previous hospice patient secondary to heart failure. - Pertinent PMH Patient Heart failure with 10% ejection fraction, previous hospice patient secondary to heart failure. Patient presents not with nonhealing leg wound requiring amputation but poor prognosis. Patient also with HTN, CAD, DMII, AICD. - Social History Smoking Status: Current every day smoker Smoking: cigarettes Pack Years: 39 Drug Use History: cocaine Living Situation: other (Patient resides with sister) - Allergies Allergies/Adverse Reactions: Allergies Allergy/AdvReac Type Severity Reaction Status Date / Time No Known Allergies Allergy Verified 03/15/19 23:33 - Subjective Lethargic. Sleeping, difficult to arouse. Minimal conversation. - Objective Vital Signs: Vital Signs - Most Recent Temp Pulse Resp BP Pulse Ox 98.1 F 86 18 141/81 H 97 04/15/19 12:20 04/15/19 12:20 04/15/19 12:20 04/15/19 12:20 04/15/19 12:20 Palliative Performance Scale: 40 - Physical Exam Constitutional: confusion HEENT: EOMI Deviation from normal: murmur, difficult to palpate pulses to lower ext Gastrointestinal: soft, non-tender, positive bowel sounds Musculoskeletal: edema present Deviation from normal: lethargic - Problem List (1) Acute on chronic systolic ACC/AHA stage C congestive heart failure Code(s): I50.23 - ACUTE ON CHRONIC SYSTOLIC (CONGESTIVE) HEART FAILURE Current Visit: No Status: Acute (2) DM type 2 (diabetes mellitus, type 2) Current Visit: No Status: Chronic Qualifiers: Diabetes mellitus mcc insulin use: with 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 Diabetes mellitus complication status: with kidney complications Diabetes mellitus complication detail: with chronic kidney disease Chronic kidney disease stage : stage 3 (moderate) Qualified Code(s): E11.22 - Type 2 diabetes mellitus with diabetic chronic kidney disease; N18.3 - Chronic kidney disease, stage 3 ( moderate); Z79.4 - alf (current) use of insulin (3) Noncompliance with medication regimen Code(s): Z91.14 - PATIENT'S OTHER NONCOMPLIANCE WITH MEDICATION REGIMEN Current Visit: No Status: Chronic - Plan/Recommendations Plan: Attempted to visit with patient and discuss his 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 Patient lethargic and difficult to arouse. Palliative care team to continue to follow and support patient to identify goals of care. [40] minutes spent on this encounter with >50% of the time in counseling and coordination of care. Thank you for this very appropriate consult.
--- NOTE | 2019-04-15 16:40 | PDOC.PN ---
- Subjective Encounter Start Date: 04/15/19 Encounter Start Time: 08:45 Subjective: pt up in bed complains of pain to his left leg - Objective Resuscitation Status - Order Detail: 04/12/19 14:28 Resuscitation Status Routine Resuscitation Status: FULL: Full Resuscitation Vital Signs & Weight: Vital Signs (12 hours) Temp Pulse Resp BP BP Pulse Ox 04/15/19 12:20 98.1 F 86 18 141/81 H 97 04/15/19 09:06 98.1 F 86 16 114/63 95 04/15/19 07:15 69 12 Weight Weight 198 lb I&O: 04/14/19 04/15/19 04/16/19 06:59 06:59 06:59 Intake Total 2516 Output Total 387 Balance 2129 Result Diagrams: 04/15/19 03:53 04/15/19 03:53 Additional Labs: Accuchecks 04/15/19 04/15/19 04/14/19 10:26 05:22 20:16 POC Glucose 193 H 206 H 169 H 04/14/19 17:01 POC Glucose 182 H Phys Exam - Physical Examination Neck: no nodes, no JVD, supple, full ROM Respiratory: no wheezing, no rales, no rhonchi, wheezing present, clear to auscultation bilateral Cardiovascular: RRR, no significant murmur, no rub, gallop, irregular Gastrointestinal: soft, non-tender, no distention, positive bowel sounds Musculoskeletal: no edema, pulses present, edema present left leg pain, erythema to left leg, open wound to left leg Dx/Plan (1) Cellulitis and abscess of left leg Code(s): L03.116 - CELLULITIS OF LEFT LOWER LIMB; L02.416 - CUTANEOUS ABSCESS OF LEFT LOWER LIMB Status: Acute (2) Chest pain Code(s): R07.9 - CHEST PAIN, UNSPECIFIED Status: Acute Qualifiers: Chest pain type: unspecified Qualified Code(s): R07.9 - Chest pain, unspecified (3) Lower extremity ulceration Code(s): L97.909 - NON-PRS CHRONIC ULC UNSP PRT OF UNSP LOW LEG W UNSP SEVERITY Status: Acute Qualifiers: Laterality: left Comment: Continue Zosyn/Vancomycin, WCT for local care, sutures removed, consult Gen surgery for I&D for suspected small abscess (4) CAD (coronary artery disease) Code(s): I25.10 - ATHSCL HEART DISEASE OF [place] CORONARY ARTERY W/O ANG PCTRS Status: Chronic Qualifiers: Coronary Disease-Associated Artery/Lesion type: [place] artery [place] vs. transplanted heart: [place] heart Associated angina: without angina Qualified Code(s): I25.10 - Atherosclerotic heart disease of [place] coronary artery without angina pectoris (5) CKD (chronic kidney disease) stage 3, GFR 30-59 ml/min Status: Chronic Comment: Avoid nephrotoxic meds and limit contrast exposure (6) Bacteremia Code(s): R78.81 - BACTEREMIA Status: Acute (7) PVD (peripheral vascular disease) Code(s): I73.9 - PERIPHERAL VASCULAR DISEASE, UNSPECIFIED Status: Acute (8) CHF (congestive heart failure) Code(s): I50.9 - HEART FAILURE, UNSPECIFIED Status: Acute Comment: systolic (9) Cocaine abuse Code(s): F14.10 - COCAINE ABUSE, UNCOMPLICATED Status: Chronic - Plan will continue abx, spoke with sister ezekiel who was ok to get -: surgical consult. spoke with surgery who recommended CV -: surgery given pt's severe PVD. pallative care consulted -: overall prognosis poor. * . Review of Systems - Review of Systems Respiratory: negative: Cough, Dry, Shortness of Breath, Hemoptysis, SOB with Excertion, Pleuritic Pain, Sputum, Wheezing Cardiovascular: negative: chest pain, palpitations, orthopnea, paroxysmal nocturnal dyspnea, edema, light headedness, other Musculoskeletal: Leg Pain - Medications/Allergies Allergies/Adverse Reactions: Allergies Allergy/AdvReac Type Severity Reaction Status Date / Time No Known Allergies Allergy Verified 03/15/19 23:33 Medications: Current Medications Acetaminophen/Codeine Phosphate (Tylenol #3) 1 tab PO Q4H PRN PRN Reason: Pain Last Admin: 04/14/19 14:14 Dose: 1 tab Albuterol/Ipratropium (Duoneb) 3 ml NEB [id number] PRN PRN Reason: SOB &/or Wheezing Aspirin (Ecotrin) 325 mg PO DAILY [facility] Last Admin: 04/15/19 09:09 Dose: 325 mg Carvedilol (Coreg) 6.25 mg PO BID [facility] Last Admin: 04/15/19 09:10 Dose: 6.25 mg Enoxaparin Sodium (Lovenox) 30 mg SC 0900 [facility] Last Admin: 04/15/19 09:10 Dose: 30 mg Furosemide (Lasix) 40 mg SLOW IVP 0600,1400 [facility] Last Admin: 04/15/19 14:47 Dose: 40 mg Meropenem 1 gm/ Device 50 mls @ 100 mls/hr IVPB 0500,1700 [facility] Last Admin: 04/15/19 16:34 Dose: 50 mls Miscellaneous Medication (Pharmacy To Dose) 1 each IVPB PRN PRN PRN Reason: Pharmacy to dose Mometasone Furoate/Formoterol Fumar (Dulera 200 Mcg/5 Mcg Inhaler) 2 puff INH BID-RT [facility] Last Admin: 04/15/19 07:15 Dose: 2 puff Morphine Sulfate (Morphine) 4 mg SLOW IVP Q4H PRN PRN Reason: Breakthrough Pain Last Admin: 04/15/19 09:09 Dose: 4 mg Sodium Chloride (Flush - Normal Saline) 10 ml IVF Q12HR [facility] Last Admin: 04/15/19 09:51 Dose: 10 ml
--- NOTE | 2019-04-15 18:27 | PRG ---
DATE OF SERVICE: 04/15/2019 SUBJECTIVE: Mr. Irving is more alert today, sitting up in bed, a little bit confused. He is trying to use the telephone and could not figure out how to do it. His replies also sometimes all makes sense. He still has marked pain in the left lower extremity. The patient denies any chest pain or shortness of breath. No abdominal pain. OBJECTIVE: VITAL SIGNS: His T-max is 98.1, blood pressure 109/66, pulse 76, respirations 18 to 20, and O2 saturation 95%. GENERAL: Awake, more alert, establishes eye contact. Speech is a little bit impaired, a little bit confused. LUNGS: Symmetric air entry. HEART: S1 and S2. Regular rate. ABDOMEN: Mildly distended, but not tender. Marked tenderness in the left leg with blisters. The skin is warm. LABORATORY DATA: White cell count 24,000, hemoglobin 9.1, platelets 183,000, 86% neutrophils, and creatinine 3.15. Morganella morganii with a very broad susceptibility noted. Arterial duplex ultrasound showed extensive areas of obstructive changes in the lower extremities. Consultation with surgery has been initiated and there is potential need for amputation of left lower extremity either at the BKA or AKA level. He does have markedly reduced ejection fraction. ASSESSMENT AND DISCUSSION: Ischemic cardiomyopathy, EF 15%, peripheral vascular disease, inflammatory process left lower extremity with ulceration and bacteremia with Morganella species, likely chronic liver disease, portal hypertension. The patient has very poor prospects of salvage of the left lower extremity. His overall prognosis is very poor as well in view of his severe cardiomyopathy, renal insufficiency and so on. I am not sure that the surgeons will carry out any procedure in view of the high risk involved. Probably, he is better off just with conservative management at this point in time. It looks like a palliative care consult would be in order. Job ID: [id number]
[2019-04-15] MEDS ORDERED: Iron Sucrose Complex 200 MG in Sodium Chloride 0.9% 250 ML 250 ML IVPB SCH (19:00)
[2019-04-15] MEDS ORDERED: Iron, Sodium Ferric Gluconate 250 MG in Sodium Chloride 0.9% 100 ML IVPB SCH (20:00)
--- NOTE | 2019-04-15 20:26 | PRG ---
DATE OF SERVICE: 04/15/2019 SUBJECTIVE: The patient is seen and examined. Noted with the following vital signs. OBJECTIVE: VITAL SIGNS: Afebrile, temperature 97.5, pulse 76, respiratory rate of 20, O2 saturations 95%, and blood pressure 109/66. The patient claims to be feeling a little bit better. HEENT: Unremarkable. CARDIOVASCULAR SYSTEM: First and second heart sounds were heard. RESPIRATORY SYSTEM: Clear to auscultation. DIGESTIVE SYSTEM: Revealed distended abdomen. EXTREMITIES: Showed improved peripheral edema. SKIN: No new gross rash. LYMPHATICS: No peripheral lymphadenopathy. IMPRESSION: 1. Acute on chronic kidney disease. 2. Chronic kidney disease, stage 3. 3. . 4. Cardiomyopathy with very low ejection fraction. PLAN: 1. We will start this patient on parenteral diuretics. 2. Monitor renal function closely, renally dose all medications. 3. Further management will be dependent on the clinical course. We will likely initiate iron infusion in this patient plus or minus erythropoietin stimulating agents. Job ID: [id number]
--- NOTE | 2019-04-15 20:47 | CON ---
DATE OF CONSULTATION: HISTORY OF PRESENT ILLNESS: Mr. Irving is a 58-year-old gentleman, who presented with severe peripheral vascular disease, fever, cough, elevated white blood cell count, leg pain, COPD exacerbation, and chest pain. I was asked to see him to provide an opinion on further vascular workup if necessary. Last week, he was seen in the [facility] and had a varicose vein ligated that was bleeding. He had the sutures removed by Dr. Han with large amount of purulence below the skin. He had severe pain in the left lower extremity. He has had an ultrasound of his legs showing no abscess. He has had a venogram, which has shown no DVT. The patient continues to smoke and has cocaine on his drug screen. PAST MEDICAL HISTORY: 1. Diabetes mellitus. 2. Peripheral vascular disease. 3. Coronary artery disease. 4. Cardiomyopathy. 5. COPD. 6. Hypertension. MEDICATIONS: Medications prior to admission are noted. ALLERGIES: NONE. SOCIAL HISTORY: He uses cocaine and tobacco. Does not admit to any alcohol abuse. PHYSICAL EXAMINATION: LUNGS: Distant breath sounds with rhonchi bilaterally. HEART: Rhythm is regular. ABDOMEN: Soft and nontender. EXTREMITIES: As above. VASCULAR: He has palpable femoral pulses bilaterally, but no other palpable pulses. LABORATORY DATA: Of note, his white blood cell count is 24.1, hemoglobin is 9.1, platelet count is 183,000. Creatinine is 3.15, potassium is 5.1, blood sugar is 206. ASSESSMENT AND PLAN: Severe peripheral vascular disease with probable fasciitis of left lower extremity. He is not a candidate for any further vascular workup due to elevated creatinine, polysubstance abuse, and noncompliance. The only viable treatment for him would be an above knee amputation. Job ID: [id number]
--- NOTE | 2019-04-16 03:47 | PDOC.GSPN ---
Surgery Progress Note: Subj - Subjective Narrative: Patient seen previously by Dr. Han for left leg abscess following variceal bleed which was treated by suturing. He has failed to heal this wound and has severe peripheral vascular disease with no palpable pulses in either leg. He also has severe heart failure with an ejection fraction of 10-15% and irreversible three-vessel coronary artery disease. He continues to abuse cocaine and has been noncompliant with cardiology medications and follow-up. Has continued severe edema and both tenderness and pain of his calf but no drainable abscess although he has ongoing redness of his calf. His lungs are clear and his abdomen is nontender. It is unclear how much of his pain is due to ischemia and how much is due to persistent infection, but he has a persistent leukocytosis suggestive of ongoing infection in the leg. Imaging options are limited due to worsening renal failure. He is not a candidate for angiogram due to his worsening renal function. I am in agreement with Dr. Han and Dr. Jimenez that his only surgical option is above-knee amputation, since he has evidence of infection at the level of the calf, which would not be cleared with below-knee amputation, and severe edema and peripheral vascular disease which would make closure at this level unlikely to heal. In addition, he is nonambulatory and cannot fully straighten his left knee, which would make below-knee amputation and appropriate. He has anasarca with edema of all of the dependent tissues including his trunk and thigh so even at the level of the femur he may still have wound healing problems. There is really no way to improve his operative risks which are high, and he is aware that he may not tolerate above-knee amputation from a cardiac standpoint. He does still wish to be a full code with compression shocks and intubation if needed, but he does not want to be maintained on a ventilator long-term. He states that his sister is his power of railroad surveyor but I was unable to contact her at the number he gave me. In my opinion his only other option is [facility] or hospice, and he does not wish to proceed with that. He states that the pain in his leg is severe enough that he wishes to proceed with above-knee amputation even though his risk of mortality is quite high. I will post him for this procedure. He has discussed his operative risks with his log processor operator, who has told him that his cardiac risks are high and cannot be improved. Surgery Progress Note: Obj - Vital signs Vital signs: Vital Signs - Most Recent Temp Pulse Resp BP Pulse Ox 97.1 F L 68 18 110/71 94 L 04/16/19 03:00 04/16/19 03:00 04/16/19 03:00 04/16/19 03:00 04/16/19 03:00 Surgery Progress Note: Results - Labs Result Diagrams: 04/15/19 03:53 04/15/19 03:53 Lab results: Laboratory Results - last 24 hr 04/15/19 04/15/19 17:12 20:21 POC Glucose 145 H 214 H
[2019-04-16] MEDS: MEROPENEM 1 GM/50 ML 1 GM in Premix Bag 1 BAG IVPB SCH ×2 (05:52→16:01)
[2019-04-16] MEDS: Mometasone/Formoterol 120 PUFF INHALER INH SCH ×2 (07:18→19:00)
[2019-04-16] MEDS: Furosemide 40 MG/4 ML VIAL SLOW IVP SCH ×2 (07:30→16:01)
[2019-04-16] MEDS: Carvedilol 6.25 MG TAB PO SCH ×2 (07:30→19:45)
[2019-04-16 08:16] LABS: Hemoglobin 9.5 g/dL (14.0-18.0); Mean Corpuscular HGB CONC 30.6 g/dL (32.0-36.0); Mean Corpuscular Hemoglobin 28.6 pg (27.0-31.0); Mean Corpuscular Volume 93.4 fL (78.0-98.0); Mean Platelet Volume 9.7 fL (7.4-10.4); Platelet Count 219 thou/uL (130-400); RBC Distribution Width 15.8 % (11.5-14.5); Red Blood Cell (RBC) Count 3.32 mill/uL (4.70-6.10)
[2019-04-16 08:19] LABS: Anion Gap 18 mmol/L (10-20); BUN (Urea Nitrogen) 70 mg/dL (8.4-25.7); Calc. Creatinine Clearance 34 mL/min (70-130); Calcium 9.3 mg/dL (7.8-10.44); Carbon Dioxide 20 mmol/L (22-29); Chloride 100 mmol/L (98-107); Estimated GFR-MDRD 26; Glucose 168 mg/dL (70-105); Potassium 5.1 mmol/L (3.5-5.1); Sodium 133 mmol/L (136-145)
[2019-04-16] MEDS: Ferrous Gluconate 324 MG TAB PO SCH (08:27)
[2019-04-16] MEDS: Aspirin 325 mg Enteric Coated Tablet PO SCH (08:27)
[2019-04-16 09:14] LABS: Band 2 % (5-11); Eosinophils 1 % (0-10); Hypochromia SLIGHT = 6-15 cells (100X) (0-5/hpf); Large Platelets SLIGHT; Lymphocytes 5 % (21-51); MDiff Complete? YES; Metamyelocyte 1 % (0-0); Monocytes 13 % (0-10); Neutrophil 78 % (42-75); Nucleated RBC 5 % (0); Ovalocytes SLIGHT = 2-5 cells (100X) (0-1/hpf); Platelet Morphology Comment Appears Adequate; Polychromasia MODERATE = 3-4 cells (100X) (0-2/hpf); Target Cells SLIGHT = 2-5 cells (100X) (0-1/hpf); Vacuoles SLIGHT
[2019-04-16] MEDS ORDERED: Bupivacaine/Epinephrine 0.25% 30 ML VIAL ONE (11:13)
[2019-04-16] MEDS ORDERED: Midazolam HCl 2 mg/2 ml Vial ONE (11:21)
[2019-04-16] MEDS ORDERED: Fentanyl 100 MCG/2 ML VIAL ONE (11:21)
[2019-04-16] MEDS ORDERED: Ketamine 50 MG/ML (10ML VIAL) ONE (13:24)
[2019-04-16] MEDS ORDERED: Meperidine HCl/PF 25 MG/ML VIAL SLOW IVP PRN (15:00)
[2019-04-16] MEDS ORDERED: Ondansetron HCl/PF 4 MG/2 ML Vial IVP PRN (15:00)
--- NOTE | 2019-04-16 15:00 | PDOC.PN ---
- Subjective Encounter Start Date: 04/16/19 Encounter Start Time: 11:00 Subjective: pt up in bed going for surgery this am - Objective Resuscitation Status - Order Detail: 04/12/19 14:28 Resuscitation Status Routine Resuscitation Status: FULL: Full Resuscitation Vital Signs & Weight: Vital Signs (12 hours) Temp Pulse Resp BP BP Pulse Ox 04/16/19 07:30 97.3 F L 75 18 127/71 127/71 96 04/16/19 07:18 68 12 04/16/19 03:00 97.1 F L 68 18 110/71 94 L Weight Weight 200 lb I&O: 04/15/19 04/16/19 04/17/19 06:59 06:59 06:59 Intake Total 2516 480 Output Total 387 850 Balance 2129 -370 Result Diagrams: 04/16/19 07:15 04/16/19 07:15 Additional Labs: Accuchecks 04/16/19 04/16/19 04/15/19 10:42 05:50 20:21 POC Glucose 172 H 180 H 214 H 04/15/19 17:12 POC Glucose 145 H Phys Exam - Physical Examination Neck: no nodes, no JVD, supple, full ROM Respiratory: no wheezing, no rales, no rhonchi, wheezing present, clear to auscultation bilateral Cardiovascular: RRR, no significant murmur, no rub, gallop, irregular Gastrointestinal: soft, non-tender, no distention, positive bowel sounds Dx/Plan (1) Cellulitis and abscess of left leg Code(s): L03.116 - CELLULITIS OF LEFT LOWER LIMB; L02.416 - CUTANEOUS ABSCESS OF LEFT LOWER LIMB Status: Acute (2) Chest pain Code(s): R07.9 - CHEST PAIN, UNSPECIFIED Status: Acute Qualifiers: Chest pain type: unspecified Qualified Code(s): R07.9 - Chest pain, unspecified (3) Lower extremity ulceration Code(s): L97.909 - NON-PRS CHRONIC ULC UNSP PRT OF UNSP LOW LEG W UNSP SEVERITY Status: Acute Qualifiers: Laterality: left Comment: Continue Zosyn/Vancomycin, WCT for local care, sutures removed, consult Gen surgery for I&D for suspected small abscess (4) CAD (coronary artery disease) Code(s): I25.10 - ATHSCL HEART DISEASE OF [place] CORONARY ARTERY W/O ANG PCTRS Status: Chronic Qualifiers: Coronary Disease-Associated Artery/Lesion type: [place] artery [place] vs. transplanted heart: [place] heart Associated angina: without angina Qualified Code(s): I25.10 - Atherosclerotic heart disease of [place] coronary artery without angina pectoris (5) CKD (chronic kidney disease) stage 3, GFR 30-59 ml/min Status: Chronic Comment: Avoid nephrotoxic meds and limit contrast exposure (6) Bacteremia Code(s): R78.81 - BACTEREMIA Status: Acute (7) PVD (peripheral vascular disease) Code(s): I73.9 - PERIPHERAL VASCULAR DISEASE, UNSPECIFIED Status: Acute (8) CHF (congestive heart failure) Code(s): I50.9 - HEART FAILURE, UNSPECIFIED Status: Acute Comment: systolic (9) Cocaine abuse Code(s): F14.10 - COCAINE ABUSE, UNCOMPLICATED Status: Chronic - Plan will conitnue abx, pt to undergo amputation -: persistant leukocytosis, renal function improving -: overall poor prognosis * . Review of Systems - Review of Systems Respiratory: negative: Cough, Dry, Shortness of Breath, Hemoptysis, SOB with Excertion, Pleuritic Pain, Sputum, Wheezing Cardiovascular: negative: chest pain, palpitations, orthopnea, paroxysmal nocturnal dyspnea, edema, light headedness, other Gastrointestinal: negative: Nausea, Vomiting, Abdominal Pain, Diarrhea, Constipation, Melena, Hematochezia, Other - Medications/Allergies Allergies/Adverse Reactions: Allergies Allergy/AdvReac Type Severity Reaction Status Date / Time No Known Allergies Allergy Verified 03/15/19 23:33 Medications: Current Medications Acetaminophen/Codeine Phosphate (Tylenol #3) 1 tab PO Q4H PRN PRN Reason: Pain Last Admin: 04/14/19 14:14 Dose: 1 tab Albuterol/Ipratropium (Duoneb) 3 ml NEB [id number] PRN PRN Reason: SOB &/or Wheezing Aspirin (Ecotrin) 325 mg PO DAILY [facility] Last Admin: 04/16/19 08:27 Dose: 325 mg Carvedilol (Coreg) 6.25 mg PO BID [facility] Last Admin: 04/16/19 07:30 Dose: 6.25 mg Enoxaparin Sodium (Lovenox) 30 mg SC 0900 [facility] Last Admin: 04/15/19 09:10 Dose: 30 mg Ferrous Gluconate (Fergon) 324 mg PO QAM-WM [facility] Last Admin: 04/16/19 08:27 Dose: 324 mg Furosemide (Lasix) 40 mg SLOW IVP 0600,1400 [facility] Last Admin: 04/16/19 07:30 Dose: 40 mg Meropenem 1 gm/ Device 50 mls @ 100 mls/hr IVPB 0500,1700 [facility] Last Admin: 04/16/19 05:52 Dose: 50 mls Miscellaneous Medication (Pharmacy To Dose) 1 each IVPB PRN PRN PRN Reason: Pharmacy to dose Mometasone Furoate/Formoterol Fumar (Dulera 200 Mcg/5 Mcg Inhaler) 2 puff INH BID-RT [facility] Last Admin: 04/16/19 07:18 Dose: 2 puff Morphine Sulfate (Morphine) 4 mg SLOW IVP Q4H PRN PRN Reason: Breakthrough Pain Last Admin: 04/15/19 20:50 Dose: 4 mg Sodium Chloride (Flush - Normal Saline) 10 ml IVF Q12HR [facility] Last Admin: 04/16/19 08:28 Dose: 10 ml
--- NOTE | 2019-04-16 15:08 | EKG ---
Test Reason : CP Blood Pressure : / mmHG Vent. Rate : 090 BPM Atrial Rate : 090 BPM P-R Int : 186 ms QRS Dur : 102 ms QT Int : 464 ms P-R-T Axes : 066 066 162 degrees QTc Int : 567 ms Normal sinus rhythm Possible Left atrial enlargement Possible Inferior infarct , age undetermined Prolonged QT Abnormal ECG Confirmed by GENNA NINO ([id number]), photo editor ISAI INMAN ([id number]) on 04/16/2019 3:07:41 PM Referred By: Confirmed By:GENNA NINO
--- NOTE | 2019-04-16 22:19 | PDOC.OP ---
Operative Note - Operative Note Operative Note: PROCEDURE: Left above-knee amputation SURGEON: Jason Khan M.D. THERAPEUTIC PROGRAM WORKER: Lucia Chester MS 3 DATE: 04/16/2019 PREOPERATIVE DIAGNOSIS: Left calf infection and severe peripheral vascular disease POSTOPERATIVE DIAGNOSIS: Left calf infection and severe peripheral vascular disease HISTORY: Patient with infected wound status post variceal bleed suture ligation with ongoing leukocytosis swelling pain and erythema. He has severe vascular disease and is not a candidate for angioplasty or bypass and has decided to proceed with left above-knee amputation. PROCEDURE IN DETAIL: After informed consent was obtained and appropriate preoperative antibiotics continued the patient was taken to the operating room where spinal anesthesia was administered. An art line was also placed for careful intraoperative monitoring due to the patient's severe heart failure. He was then placed in the supine position prepped and draped in standard sterile fashion excluding the calf wound from the field and adequacy of the spinal anesthesia confirmed. A fishmouth incision was made at the level of the mid thigh with equal anterior and posterior flaps. Dissection was carried down through the subcutaneous tissues. The saphenous vein was suture ligated. The muscles were divided and the femoral vessels were identified and separately suture ligated. The sciatic nerve was pulled down into the wound ligated and allowed to retract upward into the soft tissues. The remainder of the muscles were divided using electrocautery and the periosteum elevated. The femur was transected using a Gigli saw at a level several centimeters above the skin incision and the leg passed from the field. The edges of the femur were smoothed using a bone rasp and the wound was copiously irrigated. Some muscular bleeders were controlled with electrocautery and marrow bleeding controlled with pressure. The fascia was reapproximated over the stump with interrupted 2- 0 Vicryl [id number] sutures in the deep dermis was likewise reapproximated. The skin was closed with skin sonal and a negative pressure dressing placed over the incision due to the patient's significant anasarca. A pressure dressing was then placed and secured with an Jose wrap and the patient was taken to recovery in good condition. Estimated blood loss was minimal. There were no complications. Specimen is left leg.
[2019-04-17] MEDS: Morphine 4 MG/ML VIAL SLOW IVP PRN ×3 (03:54→20:29)
[2019-04-17] MEDS: Furosemide 40 MG/4 ML VIAL SLOW IVP SCH ×2 (05:45→13:58)
[2019-04-17] MEDS: MEROPENEM 1 GM/50 ML 1 GM in Premix Bag 1 BAG IVPB SCH ×2 (05:45→17:02)
[2019-04-17 05:50] LABS: Anion Gap 15 mmol/L (10-20); BUN (Urea Nitrogen) 63 mg/dL (8.4-25.7); Calc. Creatinine Clearance 41 mL/min (70-130); Calcium 8.9 mg/dL (7.8-10.44); Carbon Dioxide 22 mmol/L (22-29); Chloride 101 mmol/L (98-107); Estimated GFR-MDRD 36; Glucose 199 mg/dL (70-105); Potassium 4.3 mmol/L (3.5-5.1); Sodium 134 mmol/L (136-145)
[2019-04-17 05:55] LABS: Band 9 % (5-11); Hemoglobin 8.8 g/dL (14.0-18.0); Lymphocytes 6 % (21-51); MDiff Complete? YES; Mean Corpuscular HGB CONC 31.6 g/dL (32.0-36.0); Mean Corpuscular Hemoglobin 29.2 pg (27.0-31.0); Mean Corpuscular Volume 92.4 fL (78.0-98.0); Mean Platelet Volume 9.4 fL (7.4-10.4); Metamyelocyte 3 % (0-0); Monocytes 10 % (0-10); Neutrophil 71 % (42-75); Platelet Count 209 thou/uL (130-400); Platelet Morphology Comment Appears Adequate; RBC Distribution Width 15.5 % (11.5-14.5); RBC Morphology Normal; Red Blood Cell (RBC) Count 3.02 mill/uL (4.70-6.10); White Blood Cell (WBC) Count 23.7 thou/uL (4.8-10.8)
[2019-04-17] MEDS: Mometasone/Formoterol 120 PUFF INHALER INH SCH ×2 (07:22→19:28)
[2019-04-17] MEDS: Enoxaparin Sodium 30 MG/0.3 ML SYRINGE SC SCH (08:51)
[2019-04-17] MEDS: Carvedilol 6.25 MG TAB PO SCH ×2 (08:53→20:03)
[2019-04-17] MEDS: Ferrous Gluconate 324 MG TAB PO SCH (08:53)
[2019-04-17] MEDS: Aspirin 325 mg Enteric Coated Tablet PO SCH (08:53)
--- NOTE | 2019-04-17 14:09 | PDOC.PN ---
- Subjective Encounter Start Date: 04/17/19 Encounter Start Time: 10:20 Subjective: pt up in bed has some pain to his left leg - Objective Resuscitation Status - Order Detail: 04/12/19 14:28 Resuscitation Status Routine Resuscitation Status: FULL: Full Resuscitation Vital Signs & Weight: Vital Signs (12 hours) Temp Pulse Resp BP BP BP Pulse Ox 04/17/19 11:59 97.5 F L 70 20 119/74 93 L 04/17/19 08:53 124/60 04/17/19 07:30 97.5 F L 72 20 124/60 93 L 04/17/19 07:22 64 16 04/17/19 03:16 97.5 F L 64 19 136/62 94 L Weight Weight 184 lb I&O: 04/16/19 04/17/19 04/18/19 06:59 06:59 06:59 Intake Total 480 240 Output Total 850 800 Balance -370 -560 Result Diagrams: 04/17/19 04:46 04/17/19 04:46 Additional Labs: Accuchecks 04/17/19 04/16/19 04/16/19 05:48 20:20 17:09 POC Glucose 228 H 165 H 163 H Phys Exam - Physical Examination Neck: no nodes, no JVD, supple, full ROM Respiratory: no wheezing, no rales, no rhonchi, clear to auscultation bilateral Cardiovascular: RRR, no significant murmur, no rub, gallop, irregular Gastrointestinal: soft, non-tender, no distention, positive bowel sounds Musculoskeletal: no edema, pulses present Dx/Plan (1) Cellulitis and abscess of left leg Code(s): L03.116 - CELLULITIS OF LEFT LOWER LIMB; L02.416 - CUTANEOUS ABSCESS OF LEFT LOWER LIMB Status: Acute (2) Chest pain Code(s): R07.9 - CHEST PAIN, UNSPECIFIED Status: Acute Qualifiers: Chest pain type: unspecified Qualified Code(s): R07.9 - Chest pain, unspecified (3) Lower extremity ulceration Code(s): L97.909 - NON-PRS CHRONIC ULC UNSP PRT OF UNSP LOW LEG W UNSP SEVERITY Status: Acute Qualifiers: Laterality: left Comment: Continue Zosyn/Vancomycin, WCT for local care, sutures removed, consult Gen surgery for I&D for suspected small abscess (4) CAD (coronary artery disease) Code(s): I25.10 - ATHSCL HEART DISEASE OF [place] CORONARY ARTERY W/O ANG PCTRS Status: Chronic Qualifiers: Coronary Disease-Associated Artery/Lesion type: [place] artery [place] vs. transplanted heart: [place] heart Associated angina: without angina Qualified Code(s): I25.10 - Atherosclerotic heart disease of [place] coronary artery without angina pectoris (5) CKD (chronic kidney disease) stage 3, GFR 30-59 ml/min Status: Chronic Comment: Avoid nephrotoxic meds and limit contrast exposure (6) Bacteremia Code(s): R78.81 - BACTEREMIA Status: Acute (7) PVD (peripheral vascular disease) Code(s): I73.9 - PERIPHERAL VASCULAR DISEASE, UNSPECIFIED Status: Acute (8) CHF (congestive heart failure) Code(s): I50.9 - HEART FAILURE, UNSPECIFIED Status: Acute Comment: systolic (9) Cocaine abuse Code(s): F14.10 - COCAINE ABUSE, UNCOMPLICATED Status: Chronic - Plan s/p left Above knee amputation -: will continue current meds -: will continue abx for now -: gerald improving, poor EF * . Review of Systems - Review of Systems Respiratory: negative: Cough, Dry, Shortness of Breath, Hemoptysis, SOB with Excertion, Pleuritic Pain, Sputum, Wheezing Cardiovascular: negative: chest pain, palpitations, orthopnea, paroxysmal nocturnal dyspnea, edema, light headedness, other Gastrointestinal: negative: Nausea, Vomiting, Abdominal Pain, Diarrhea, Constipation, Melena, Hematochezia, Other Musculoskeletal: Leg Pain - Medications/Allergies Allergies/Adverse Reactions: Allergies Allergy/AdvReac Type Severity Reaction Status Date / Time No Known Allergies Allergy Verified 03/15/19 23:33 Medications: Current Medications Acetaminophen/Codeine Phosphate (Tylenol #3) 1 tab PO Q4H PRN PRN Reason: Pain Last Admin: 04/14/19 14:14 Dose: 1 tab Albuterol/Ipratropium (Duoneb) 3 ml NEB [id number] PRN PRN Reason: SOB &/or Wheezing Aspirin (Ecotrin) 325 mg PO DAILY [facility] Last Admin: 04/17/19 08:53 Dose: 325 mg Carvedilol (Coreg) 6.25 mg PO BID [facility] Last Admin: 04/17/19 08:53 Dose: 6.25 mg Enoxaparin Sodium (Lovenox) 30 mg SC 0900 [facility] Last Admin: 04/17/19 08:51 Dose: Not Given Ferrous Gluconate (Fergon) 324 mg PO QAM-WM [facility] Last Admin: 04/17/19 08:53 Dose: 324 mg Furosemide (Lasix) 40 mg SLOW IVP 0600,1400 [facility] Last Admin: 04/17/19 13:58 Dose: 40 mg Meropenem 1 gm/ Device 50 mls @ 100 mls/hr IVPB 0500,1700 [facility] Last Admin: 04/17/19 05:45 Dose: 50 mls Miscellaneous Medication (Pharmacy To Dose) 1 each IVPB PRN PRN PRN Reason: Pharmacy to dose Mometasone Furoate/Formoterol Fumar (Dulera 200 Mcg/5 Mcg Inhaler) 2 puff INH BID-RT [facility] Last Admin: 04/17/19 07:22 Dose: 2 puff Morphine Sulfate (Morphine) 4 mg SLOW IVP Q4H PRN PRN Reason: Breakthrough Pain Last Admin: 04/17/19 08:54 Dose: 4 mg Sodium Chloride (Flush - Normal Saline) 10 ml IVF Q12HR [facility] Last Admin: 04/17/19 05:47 Dose: 10 ml
--- NOTE | 2019-04-17 14:21 | PDOC.CTH ---
Cardiology Progress Note - Subjective No complaints now. s/p left AKA yesterday. Had 11 beat NSVT earlier this morning. Asymptomatic. - Objective Vital Signs Temp Pulse Resp BP BP BP Pulse Ox 04/17/19 11:59 97.5 F L 70 20 119/74 93 L 04/17/19 08:53 124/60 04/17/19 07:30 97.5 F L 72 20 124/60 93 L 04/17/19 07:22 64 16 04/17/19 03:16 97.5 F L 64 19 136/62 94 L Weight 184 lb 04/16/19 04/17/19 04/18/19 06:59 06:59 06:59 Intake Total 480 240 Output Total 850 800 Balance -370 -560 - Physical Examination General/Neuro: alert & oriented x3 Neck: no JVD present Lungs: CTA Heart: RRR Abdomen: NT/ND - Telemetry Telemetry Rhythm: SR - Labs Result Diagrams: 04/17/19 04:46 04/17/19 04:46 Troponin/CKMB CK-MB (CK-2) 6.2 ng/mL (0-6.6) 04/12/19 11:31 Troponin I 0.718 ng/mL (< 0.028) H* 04/12/19 19:04 - Assessment/Plan 1. NSVT 2. Chronic systolic CHF 3. s/p AICD 4. Severe PVD s/p left AKA Stable. Continue bblockers for VT and ICD in place. If recurrent will address, but would recommend observation of VT only for now.
--- NOTE | 2019-04-17 14:36 | PRG ---
DATE OF SERVICE: 04/17/2019 SUBJECTIVE: Mr. Irving had AK amputation. He is awake. He has moderate to marked pain at the amputation site. No headaches. No shortness of breath or chest pain. No diarrhea. OBJECTIVE: VITAL SIGNS: Temperature max 97.9, blood pressure 119/74, pulse 70, respirations 20, O2 saturation 93. GENERAL: He is more alert and oriented. LUNGS: Clear. HEART: S1 and S2. Regular rate. ABDOMEN: Soft. EXTREMITIES: Left AKA site very tender. LABORATORY DATA: White cell count is 23.7, hemoglobin 8.8, platelets 209. Sodium 134, creatinine 2.27, which is little bit better than previously. Morganella morganii with a broad susceptibility profile. ASSESSMENT AND DISCUSSION: Ischemic cardiomyopathy, EF 15%, peripheral vascular disease, inflammatory process left lower extremity with ulceration and bacteremia Morganella species, likely chronic liver disease status post AK amputation, to be continued on broad-spectrum coverage for the time being. Job ID: [id number]
--- NOTE | 2019-04-17 15:35 | PDOC.GSPN ---
Surgery Progress Note: Subj - Subjective Narrative: Patient feels okay. Pain in the stump is controlled except for with dressing changes. The Jose wrap came back off but the incisional VAC is in place with minimal drainage. White count is still high. Assessment/plan: Stable following left AKA. Continue current management. Surgery Progress Note: Obj - Vital signs Vital signs: Vital Signs - Most Recent Temp Pulse Resp BP Pulse Ox 97.5 F L 70 20 119/74 93 L 04/17/19 11:59 04/17/19 11:59 04/17/19 11:59 04/17/19 11:59 04/17/19 11:59 Surgery Progress Note: Results - Labs Result Diagrams: 04/17/19 04:46 04/17/19 04:46 Lab results: Laboratory Results - last 24 hr 04/17/19 04/17/19 04/17/19 04:46 04:46 05:48 WBC 23.7 H RBC 3.02 L Hgb 8.8 L Hct 27.9 L MCV 92.4 MCH 29.2 MCHC 31.6 L RDW 15.5 H Plt Count 209 MPV 9.4 Neutrophils % (Manual) 71 Band Neuts % (Manual) 9 Lymphocytes % (Manual) 6 L Monocytes % (Manual) 10 Basophils % (Manual) 1 Metamyelocytes % (Man) 3 H Plt Morphology Comment Appears Adequate RBC Morph Comment Normal Sodium 134 L Potassium 4.3 Chloride 101 Carbon Dioxide 22 Anion Gap 15 BUN 63 H Creatinine 2.27 H Estimated GFR (MDRD) 36 Glucose 199 H POC Glucose 228 H Calcium 8.9
[2019-04-17] MEDS ORDERED: Dextrose 50% Abboject 50 ML SYRINGE SLOW IVP PRN (16:28)
[2019-04-17] MEDS ORDERED: Dextrose 5% in Water 1,000 ML IV PRN (16:28)
[2019-04-17] MEDS: HumaLOG 300 UNITS/3 ML VIAL SC PRN (18:02)
--- NOTE | 2019-04-17 18:12 | PRG ---
DATE OF SERVICE: 04/16/2019 SUBJECTIVE: The patient noted with the following vital signs. OBJECTIVE: VITAL SIGNS: Afebrile, blood pressure 114/69, pulse of 63, respiratory rate of 16, O2 saturations 93%. HEENT: Unremarkable. Moist oral mucosa. NECK: Supple. No conjunctival injection or icterus. CARDIOVASCULAR: First and second heart sounds are heard. RESPIRATORY: Clear to auscultation. DIGESTIVE: Revealed a distended abdomen. EXTREMITIES: Showed improved peripheral edema as well as evidence of left above-knee amputation. IMPRESSION: 1. Acute on chronic kidney disease. 2. Advanced chronic kidney disease in the context of diabetes and cardiomyopathy. 3. Advanced cardiomyopathy. PLAN: 1. We will continue to diurese this patient as improvement in the volume status of this patient is likely to improve cardiac contractility and thus with that renal deficient and improvement in the GFR. 2. Further management to be dependent on the clinical course. Job ID: [id number]
--- NOTE | 2019-04-17 18:13 | PRG ---
DATE OF SERVICE: 04/17/2019 SUBJECTIVE: The patient seems to be doing much better, noted with fully vital signs. OBJECTIVE: VITAL SIGNS: Afebrile, temperature 99.2, pulse 77, respiratory rate of 20, O2 saturation of 94% with blood pressure 120/64. HEENT: Unremarkable. Moist oral mucosa. NECK: Supple. No conjunctival injection or icterus. CARDIOVASCULAR: First and second heart sounds are heard. RESPIRATORY: Clear to auscultation. DIGESTIVE: With a distended abdomen. EXTREMITIES: Showed improved peripheral edema. LABORATORY INVESTIGATIONS: Showed hemoglobin of 8.8. Chemistry showed a creatinine down to 2.27 with BUN of 63, potassium 4.3. IMPRESSION: 1. Acute on chronic kidney disease, improving. 2. Advanced cardiomyopathy. 3. Hypervolemia, responded to diuresis. 4. Diabetes mellitus with initial diabetic nephropathy. PLAN: 1. We will continue with current parenteral diuresis and will likely within the next 24 to 48 hours begin to deescalate to oral diuretics. 2. Renally dose all medications and avoid potentially nephrotoxic agents. 3. Further management to be dependent on the clinical course. Job ID: [id number]
[2019-04-17] MEDS: glipiZIDE 5 MG TAB PO SCH (20:04)
[2019-04-17] MEDS: Insulin Glargine 5 UNITS in Pre-Filled Syringe 1 EACH SC SCH (20:47)
[2019-04-17] MEDS ORDERED: glipiZIDE 5 MG TAB PO SCH (21:00)
[2019-04-18] MEDS: MEROPENEM 1 GM/50 ML 1 GM in Premix Bag 1 BAG IVPB SCH ×3 (04:53→20:40)
[2019-04-18] MEDS: Furosemide 40 MG/4 ML VIAL SLOW IVP SCH ×2 (04:53→15:34)
[2019-04-18] MEDS: Morphine 4 MG/ML VIAL SLOW IVP PRN ×4 (04:58→20:43)
[2019-04-18 05:24] LABS: Anion Gap 13 mmol/L (10-20); BUN (Urea Nitrogen) 51 mg/dL (8.4-25.7); Calc. Creatinine Clearance 55 mL/min (70-130); Calcium 8.7 mg/dL (7.8-10.44); Carbon Dioxide 25 mmol/L (22-29); Chloride 101 mmol/L (98-107); Estimated GFR-MDRD 50; Glucose 136 mg/dL (70-105); Sodium 135 mmol/L (136-145)
[2019-04-18 05:45] LABS: Hemoglobin 9.8 g/dL (14.0-18.0); Mean Corpuscular HGB CONC 30.7 g/dL (32.0-36.0); Mean Corpuscular Hemoglobin 28.7 pg (27.0-31.0); Mean Corpuscular Volume 93.4 fL (78.0-98.0); Mean Platelet Volume 9.2 fL (7.4-10.4); Platelet Count 230 thou/uL (130-400); RBC Distribution Width 16.2 % (11.5-14.5); White Blood Cell (WBC) Count 19.1 thou/uL (4.8-10.8)
[2019-04-18 05:46] LABS: Band 1 % (5-11); Lymphocytes 12 % (21-51); MDiff Complete? YES; Metamyelocyte 2 % (0-0); Monocytes 8 % (0-10); Myelocyte 1 % (0-0); Neutrophil 76 % (42-75); Platelet Morphology Comment Appears Adequate
[2019-04-18] MEDS: Mometasone/Formoterol 120 PUFF INHALER INH SCH ×2 (07:42→18:19)
--- NOTE | 2019-04-18 08:35 | PDOC.PN ---
- Subjective Encounter Start Date: 04/18/19 Encounter Start Time: 10:50 Subjective: Patient reports some continued pain from stump, but much improved. No -: other complaints. - Objective Resuscitation Status - Order Detail: 04/12/19 14:28 Resuscitation Status Routine Resuscitation Status: FULL: Full Resuscitation MAR Reviewed: Yes Vital Signs & Weight: Vital Signs (12 hours) Temp Pulse Resp BP Pulse Ox 04/18/19 07:42 68 14 94 L 04/18/19 03:23 97.8 F 64 19 124/70 94 L Weight Weight 184 lb I&O: 04/17/19 04/18/19 04/19/19 06:59 06:59 06:59 Intake Total 240 Output Total 800 2800 Balance -560 -2800 Result Diagrams: 04/18/19 04:36 04/18/19 04:36 Additional Labs: Accuchecks 04/18/19 04/17/19 04/17/19 06:09 20:25 17:12 POC Glucose 140 H 213 H 227 H 04/17/19 11:10 POC Glucose 212 H Phys Exam - Physical Examination Constitutional: NAD HEENT: moist MMs Respiratory: no wheezing, no rales, no rhonchi Cardiovascular: no significant murmur, irregular Gastrointestinal: soft, positive bowel sounds left AKA stump with dressing in place Neurological: non-focal Psychiatric: normal affect, A&O x 3 Dx/Plan (1) Bacteremia Code(s): R78.81 - BACTEREMIA Status: Acute Comment: Morganella sp, on IV abx , Dr. Rivera following (2) Cellulitis and abscess of left leg Code(s): L03.116 - CELLULITIS OF LEFT LOWER LIMB; L02.416 - CUTANEOUS ABSCESS OF LEFT LOWER LIMB Status: Acute Comment: s/p left AKA on 04/16/19 (3) PVD (peripheral vascular disease) Code(s): I73.9 - PERIPHERAL VASCULAR DISEASE, UNSPECIFIED Status: Chronic (4) Nonsustained ventricular tachycardia Code(s): I47.2 - VENTRICULAR TACHYCARDIA Status: Acute Comment: on betablockers, ICD in place, watch for recurrence (5) CHF (congestive heart failure) Code(s): I50.9 - HEART FAILURE, UNSPECIFIED Status: Chronic Qualifiers: Heart failure type: systolic Comment: systolic, stage C (6) CAD (coronary artery disease) Code(s): I25.10 - ATHSCL HEART DISEASE OF [place] CORONARY ARTERY W/O ANG PCTRS Status: Chronic Qualifiers: Coronary Disease-Associated Artery/Lesion type: [place] artery [place] vs. transplanted heart: [place] heart Associated angina: without angina Qualified Code(s): I25.10 - Atherosclerotic heart disease of [place] coronary artery without angina pectoris (7) CKD (chronic kidney disease) stage 3, GFR 30-59 ml/min Status: Chronic Comment: Avoid nephrotoxic meds and limit contrast exposure (8) Cocaine abuse Code(s): F14.10 - COCAINE ABUSE, UNCOMPLICATED Status: Chronic (9) DM type 2 (diabetes mellitus, type 2) Status: Chronic Qualifiers: Diabetes mellitus senior living insulin use: with intermodal customer service use Diabetes mellitus complication status: with kidney complications Diabetes mellitus complication detail: with chronic kidney disease Chronic kidney disease stage : stage 3 (moderate) Qualified Code(s): E11.22 - Type 2 diabetes mellitus with diabetic chronic kidney disease; N18.3 - Chronic kidney disease, stage 3 ( moderate); Z79.4 - terminal supervisor (current) use of insulin Comment: Continue Glipizide, ISS, ADA (10) Hyperlipidemia Code(s): E78.5 - HYPERLIPIDEMIA, UNSPECIFIED Status: Chronic Qualifiers: Hyperlipidemia type: unspecified Qualified Code(s): E78.5 - Hyperlipidemia , unspecified (11) Hypertension Code(s): I10 - ESSENTIAL (PRIMARY) HYPERTENSION Status: Chronic - Plan cont current plan of care, continue antibiotics, PT/OT, DVT proph w/lovenox * . - Discharge Day Encounter end time: 11:00
[2019-04-18] MEDS: glipiZIDE 5 MG TAB PO SCH ×2 (09:11→20:39)
[2019-04-18] MEDS: Carvedilol 6.25 MG TAB PO SCH ×2 (09:11→20:39)
[2019-04-18] MEDS: Ferrous Gluconate 324 MG TAB PO SCH (09:11)
[2019-04-18] MEDS: Aspirin 325 mg Enteric Coated Tablet PO SCH (09:12)
[2019-04-18] MEDS: Enoxaparin Sodium 30 MG/0.3 ML SYRINGE SC SCH (09:12)
[2019-04-18] MEDS ORDERED: Lisinopril 2.5 MG TAB PO SCH (09:15)
--- NOTE | 2019-04-18 11:00 | PQF ---
ARCELIA ARMANDO RYAN ANDREW MD [id number] CLINICAL DOCUMENTATION IMPROVEMENT CLARIFICATION FORM: ICD-10 Updated PLEASE DO AN ADDENDUM TO THE PROGRESS NOTE WITH ANY DOCUMENTATION UPDATES OR ADDITIONS AND CARRY THROUGH TO DC SUMMARY. THANK YOU. DATE: 04/18/19 ATTN:DR. Deepika WOOD Please exercise your independent, professional judgment in responding to the clarification form. Clinical indicators are provided on the bottom of this form for your review. Please check appropriate box(s): [ ] NSTEMI ([place] type I) [ X ] NSTEMI due to [place] Ischemia (AMI Type II) [ ] Demand Ischemia without [place] [ ] Other diagnosis [ ] Unable to determine In addition, please specify: Present on Admission (POA): [ X ] Yes [ ] No [ ] Unable to determine CLINICAL INDICATORS - SIGNS / SYMPTOMS / LABS (04/12) TROPONIN I : 0.178, 0.869, 0.699 (04/12) H & P ([facility]) CHEST PAIN W NSTEMI VS DEMAND ISCHEMIA (04/13) PN ([facility]) DEMAND ISCHEMIA (04/12) CARDIOLOGY H& P (BUSE) : SUSPECT TYPE II [place] 2/2 SEPSIS RISK: SEVERE SEPSIS (BUSE) ELEVATED TROPONIN (ED LABS) ISCHEMIC CARDIOMYOPATHY ([facility]) TREATMENTS: CARDIOLOGY CONSULT NEPHROLOGY CONSULT IV DIURETIC (LASIX STARTED 04/15) THANK YOU! ALIS (This form is maintained as a part of the permanent medical record) Viewer 2015 [employer] All Rights Reserved ALYSSA [email or web address] [phone] MTDD
--- NOTE | 2019-04-18 11:25 | PQF ---
ARCELIA ARMANDO RYAN ANDREW MD [id number] CLINICAL DOCUMENTATION IMPROVEMENT CLARIFICATION FORM: ICD-10 Updated PLEASE DO AN ADDENDUM TO THE PROGRESS NOTE WITH ANY DOCUMENTATION UPDATES OR ADDITIONS AND CARRY THROUGH TO DC SUMMARY. THANK YOU. DATE: 04/18/19 ATTN:DR. Deepika WOOD Please exercise your independent, professional judgment in responding to the clarification form. Clinical indicators are provided on the bottom of this form for your review. Please check appropriate box(s): COMBINED SYSTOLIC /DIASTOLIC HEART FAILURE: ACUITY [ ] Acute [ X ] Acute on Chronic [ ] Chronic [ ] Other diagnosis [ ] Unable to determine In addition, please specify: Present on Admission (POA): [ X ] Yes [ ] No [ ] Unable to determine For continuity of documentation, please document condition throughout progress notes and discharge summary. Thank You. CLINICAL INDICATORS - SIGNS / SYMPTOMS / LABS 04/12: CARDIOLOGY CONSULT () NOTED HIS BNP IS 12, 612, BASELINE IS APPROX [phone] 04/14 NEPHROLOGY CONSULT ([facility]) PATIENT IS OBVIOUSLY HYPERVOLEMIC AT THIS POINT . WE WILL DISCONTINUE CURRENT IVF AND WILL HAVE PT RECEIVE PARENTERAL IV DIURETICS RISK: SEVERE ISCHEMIC PHARMACY SERVICE ASSOCIATE ELEVATED BNP ABOVE BASELINE (12,612) CHRONIC COMBINE CHF TREATMENT CARDIOLOGY CONSULT NEPHROLOGY CONSULATE 04/15) THANK YOU! ALIS (This form is maintained as a part of the permanent medical record) 2014 [employer] All Rights Reserved [email or web address] [phone] [facility]
[2019-04-18] MEDS ORDERED: Sodium Chloride 0.9% 10 ML ONE (15:21)
[2019-04-18] MEDS: HumaLOG 300 UNITS/3 ML VIAL SC PRN (17:34)
[2019-04-18] MEDS: Insulin Glargine 5 UNITS in Pre-Filled Syringe 1 EACH SC SCH (20:39)
--- NOTE | 2019-04-18 21:52 | PRG ---
DATE OF SERVICE: 04/18/2019 SUBJECTIVE: The patient is seen and examined, seems to be doing much better. OBJECTIVE: HEENT: Unremarkable. CARDIOVASCULAR: First and second heart sounds were heard. RESPIRATORY: Clear to auscultation. DIGESTIVE: Revealed a benign abdomen with positive bowel sounds. EXTREMITIES: No peripheral edema. SKIN: No new gross rash. LYMPHATICS: No peripheral lymphadenopathy. LABORATORY INVESTIGATION: Significant for creatinine down to 1.7. IMPRESSION: 1. Acute on chronic kidney disease, which has much improved. 2. Severe peripheral vascular disease, status post above-knee amputation. 3. Diabetes mellitus. PLAN: 1. Deescalate the diuretics. Therefore, we will change the IV Lasix to oral Lasix. 2. Continue renal supportive measures. 3. Outpatient Nephrology followup status post discharge strongly recommended. Job ID: [id number]
--- NOTE | 2019-04-18 22:01 | PDOC.GSPN ---
Surgery Progress Note: Subj - Subjective Narrative: Patient is having quite a bit of pain at the amputation site with touch or movement but it is not too bad at rest. The surface wound VAC is functioning and there is minimal serosanguineous drainage. The skin appears to be warm and viable. The patient was nonambulatory before coming to the hospital, but I encouraged him to work with physical therapy. He will probably need SNF versus rehabilitation placement. Surgery Progress Note: Obj - Vital signs Vital signs: Vital Signs - Most Recent Temp Pulse Resp BP Pulse Ox 98.0 F 75 17 116/75 97 04/18/19 15:39 04/18/19 15:39 04/18/19 15:39 04/18/19 20:39 04/18/19 15:39 Surgery Progress Note: Results - Labs Result Diagrams: 04/18/19 04:36 04/18/19 04:36 Lab results: Laboratory Results - last 24 hr 04/18/19 04/18/19 04/18/19 04:36 11:24 17:07 POC Glucose 186 H 189 H Magnesium 2.1 04/18/19 20:18 POC Glucose 164 H Magnesium
[2019-04-19] MEDS ORDERED: Sodium Chloride 0.9% 10 ML ONE ×2 (04:37→12:13)
[2019-04-19] MEDS: MEROPENEM 1 GM/50 ML 1 GM in Premix Bag 1 BAG IVPB SCH ×3 (05:06→20:48)
[2019-04-19 05:23] LABS: Anion Gap 14 mmol/L (10-20); BUN (Urea Nitrogen) 44 mg/dL (8.4-25.7); Calc. Creatinine Clearance 70 mL/min (70-130); Calcium 8.7 mg/dL (7.8-10.44); Carbon Dioxide 23 mmol/L (22-29); Chloride 101 mmol/L (98-107); Estimated GFR-MDRD 67; Glucose 125 mg/dL (70-105); Potassium 4.2 mmol/L (3.5-5.1); Sodium 134 mmol/L (136-145)
[2019-04-19 05:35] LABS: Band 9 % (5-11); Hemoglobin 10.5 g/dL (14.0-18.0); Hypochromia SLIGHT = 6-15 cells (100X) (0-5/hpf); Lymphocytes 4 % (21-51); MDiff Complete? YES; Mean Corpuscular HGB CONC 29.8 g/dL (32.0-36.0); Mean Corpuscular Hemoglobin 28.6 pg (27.0-31.0); Mean Corpuscular Volume 95.9 fL (78.0-98.0); Mean Platelet Volume 8.6 fL (7.4-10.4); Metamyelocyte 1 % (0-0); Monocytes 6 % (0-10); Neutrophil 80 % (42-75); Nucleated RBC 3 % (0); Platelet Count 240 thou/uL (130-400); Platelet Morphology Comment Appears Adequate; RBC Distribution Width 17.4 % (11.5-14.5); Red Blood Cell (RBC) Count 3.67 mill/uL (4.70-6.10); White Blood Cell (WBC) Count 22.6 thou/uL (4.8-10.8)
[2019-04-19] MEDS: Mometasone/Formoterol 120 PUFF INHALER INH SCH ×2 (07:34→18:31)
[2019-04-19] MEDS ORDERED: Lisinopril 2.5 MG TAB PO SCH ×2 (09:00→21:00)
[2019-04-19] MEDS: Aspirin 325 mg Enteric Coated Tablet PO SCH (09:41)
[2019-04-19] MEDS: Ferrous Gluconate 324 MG TAB PO SCH (09:41)
[2019-04-19] MEDS: glipiZIDE 5 MG TAB PO SCH ×2 (09:41→20:49)
[2019-04-19] MEDS: Furosemide 40 MG TAB PO SCH ×2 (09:41→13:41)
[2019-04-19] MEDS: Enoxaparin Sodium 30 MG/0.3 ML SYRINGE SC SCH (09:42)
[2019-04-19] MEDS: Carvedilol 6.25 MG TAB PO SCH ×2 (09:42→20:50)
--- NOTE | 2019-04-19 11:01 | PRG ---
DATE OF SERVICE: SUBJECTIVE: The patient noted with the following vital signs. OBJECTIVE: VITAL SIGNS: Afebrile, temperature 97.8, pulse 73, with respiratory rate of 16, O2 saturation of 95% with blood pressure 172/65. HEENT: Unremarkable. Moist oral mucosa. NECK: Supple. No conjunctival injection or icterus. CARDIOVASCULAR SYSTEM: First and second heart sounds were heard. RESPIRATORY SYSTEM: Clear to auscultation. DIGESTIVE SYSTEM: Revealed a benign abdomen. Positive bowel sounds. EXTREMITIES: No peripheral edema. SKIN: No new gross rash. LYMPHATICS: No peripheral lymphadenopathy. LABORATORY INVESTIGATION: Showed a hemoglobin of 10.5 with a white count of . Chemistry showed a creatinine of 1.32, BUN of . IMPRESSION: 1. Acute on chronic kidney disease, which has improved. 2. Hypervolemia, much improved with diuretics. PLAN: 1. The patient's diuretics has been deescalated. 2. We will recommend avoiding daily blood draws in order to prevent iatrogenic anemia. 3. Further management to be dependent on the clinical course. Job ID: [id number]
[2019-04-19] MEDS: HumaLOG 300 UNITS/3 ML VIAL SC PRN (11:28)
[2019-04-19] MEDS: Acetaminophen/Codeine 30-300mg Tablet PO PRN (11:45)
--- NOTE | 2019-04-19 13:31 | PDOC.PALFU ---
Palliative Care Follow-up Note Follow up visit with patient to further discuss goals of care and resuscitation status. Patient states he wants to gain as much strength and independence as possible and return to his sisters home. Revisited DNR status with patient and he states that he wants to have full resuscitation attempts should the need arise. Communicated with EDVIN Brambila and Palliative Care Alfa Mujica RN.
--- NOTE | 2019-04-19 14:24 | PDOC.PN ---
- Subjective Encounter Start Date: 04/19/19 Encounter Start Time: 14:05 Subjective: f/u for PVD, s/p L AKA POD #3 on Meropenem. Some pain in LLE but -: improved. c/o blurred vision bilat that apparently is new. No eye pain -: or vision loss. - Objective Resuscitation Status - Order Detail: 04/12/19 14:28 Resuscitation Status Routine Resuscitation Status: FULL: Full Resuscitation MAR Reviewed: Yes Vital Signs & Weight: Vital Signs (12 hours) Temp Pulse Resp BP BP Pulse Ox 04/19/19 11:42 98.3 F 70 16 120/60 98 04/19/19 09:42 73 132/65 04/19/19 08:00 97.8 F 73 16 132/65 95 04/19/19 04:00 97.7 F 67 18 113/60 92 L Weight Weight 181 lb I&O: 04/18/19 04/19/19 04/20/19 06:59 06:59 06:59 Intake Total 1621 Output Total 2800 2135 Balance -2800 -514 Result Diagrams: 04/19/19 04:57 04/19/19 04:57 Additional Labs: Accuchecks 04/19/19 04/19/19 04/18/19 10:47 05:36 20:18 POC Glucose 161 H 143 H 164 H 04/18/19 04/18/19 17:07 11:24 POC Glucose 189 H 186 H EKG Reviewed by me: Yes (Tele - SR) Phys Exam - Physical Examination Constitutional: NAD HEENT: PERRLA, sclera anicteric, oral pharynx no lesions Neck: no nodes, no JVD, supple, full ROM Respiratory: no wheezing, no rales, no rhonchi, clear to auscultation bilateral S1, S2 Cardiovascular: RRR, no significant murmur, no rub, gallop Gastrointestinal: soft, non-tender, no distention, positive bowel sounds L AKA with stump intact Musculoskeletal: pulses present Neurological: normal sensation, moves all 4 limbs Psychiatric: A&O x 3 Skin: normal turgor, cap refill <2 seconds Dx/Plan (1) Cellulitis and abscess of left leg Code(s): L03.116 - CELLULITIS OF LEFT LOWER LIMB; L02.416 - CUTANEOUS ABSCESS OF LEFT LOWER LIMB Status: Acute Comment: s/p left AKA on 04/16/19, local WCT , pain control (2) Bacteremia Code(s): R78.81 - BACTEREMIA Status: Acute Comment: Morganella sp, Meropenem , Dr. Rivera following (3) FIDENCIO (acute kidney injury) Code(s): N17.9 - ACUTE KIDNEY FAILURE, UNSPECIFIED Status: Acute Comment: Improved with supportive mgmt, avoid nephrotoxic agents and limit contrast exposure (4) Blurred vision, bilateral Code(s): H53.8 - OTHER VISUAL DISTURBANCES Status: Acute Comment: Decreased visual acuity, consult Ophthalmology for evaluation (5) PVD (peripheral vascular disease) Code(s): I73.9 - PERIPHERAL VASCULAR DISEASE, UNSPECIFIED Status: Chronic Comment: Continue ASA 325mg daily (6) CKD (chronic kidney disease) stage 3, GFR 30-59 ml/min Status: Chronic Comment: Avoid nephrotoxic meds and limit contrast exposure (7) Cocaine abuse Code(s): F14.10 - COCAINE ABUSE, UNCOMPLICATED Status: Chronic (8) DM type 2 (diabetes mellitus, type 2) Status: Chronic Qualifiers: Diabetes mellitus manufacturing support engineer insulin use: with intermediate use Diabetes mellitus complication status: with kidney complications Diabetes mellitus complication detail: with chronic kidney disease Chronic kidney disease stage : stage 3 (moderate) Qualified Code(s): E11.22 - Type 2 diabetes mellitus with diabetic chronic kidney disease; N18.3 - Chronic kidney disease, stage 3 ( moderate); Z79.4 - health safety coordinator (current) use of insulin Comment: Continue Glipizide, Lantus, ISS, ADA - Plan continue antibiotics, PT/OT, social scientist Stable currently -: Continue Meropenem IV -: Consult Ophthalmology -: WCT for local care LLE -: AM lab: BMP, CBC * .
[2019-04-19] MEDS: Insulin Glargine 5 UNITS in Pre-Filled Syringe 1 EACH SC SCH (20:48)
[2019-04-19] MEDS: Lisinopril 5 MG TAB PO SCH (20:51)
[2019-04-20 04:59] LABS: Anion Gap 11 mmol/L (10-20); BUN (Urea Nitrogen) 36 mg/dL (8.4-25.7); Calc. Creatinine Clearance 82 mL/min (70-130); Calcium 8.3 mg/dL (7.8-10.44); Carbon Dioxide 28 mmol/L (22-29); Chloride 102 mmol/L (98-107); Estimated GFR-MDRD 81; Glucose 117 mg/dL (70-105); Potassium 4.2 mmol/L (3.5-5.1); Sodium 137 mmol/L (136-145)
[2019-04-20 05:02] LABS: Band 13 % (5-11); Eosinophils 1 % (0-10); Lymphocytes 10 % (21-51); MDiff Complete? YES; Mean Corpuscular HGB CONC 31.1 g/dL (32.0-36.0); Mean Corpuscular Hemoglobin 28.9 pg (27.0-31.0); Mean Corpuscular Volume 93.1 fL (78.0-98.0); Mean Platelet Volume 8.5 fL (7.4-10.4); Metamyelocyte 1 % (0-0); Monocytes 12 % (0-10); Myelocyte 1 % (0-0); Neutrophil 62 % (42-75); Nucleated RBC 2 % (0); Platelet Count 234 thou/uL (130-400); Platelet Morphology Comment Appears Adequate; RBC Distribution Width 17.8 % (11.5-14.5); Red Blood Cell (RBC) Count 3.45 mill/uL (4.70-6.10); White Blood Cell (WBC) Count 25.6 thou/uL (4.8-10.8)
[2019-04-20] MEDS: MEROPENEM 1 GM/50 ML 1 GM in Premix Bag 1 BAG IVPB SCH ×2 (05:46→12:57)
[2019-04-20] MEDS: Mometasone/Formoterol 120 PUFF INHALER INH SCH ×2 (07:03→18:22)
[2019-04-20] MEDS: Lisinopril 5 MG TAB PO SCH (09:33)
[2019-04-20] MEDS: glipiZIDE 5 MG TAB PO SCH (09:34)
[2019-04-20] MEDS: Aspirin 325 mg Enteric Coated Tablet PO SCH (09:34)
[2019-04-20] MEDS: Furosemide 40 MG TAB PO SCH ×2 (09:34→12:56)
[2019-04-20] MEDS: Enoxaparin Sodium 30 MG/0.3 ML SYRINGE SC SCH (09:35)
[2019-04-20] MEDS: Carvedilol 6.25 MG TAB PO SCH (09:35)
[2019-04-20] MEDS: Ferrous Gluconate 324 MG TAB PO SCH (09:35)
--- NOTE | 2019-04-20 10:23 | CON ---
DATE OF CONSULTATION: 04/20/2019 CHIEF COMPLAINT: Blurred vision. HISTORY OF PRESENT ILLNESS: The patient is a 58-year-old man, who has multiple medical problems, mostly cardiovascular and peripheral vascular related with recent mpaez-cwk-ohab amputation. He states that his last normal vision was perhaps 6 months previously and attributed his decline in vision to nitroglycerin injections, which seem to lower his vision with each time, although there was some recovery thereafter, but in general with overall decline to the present state. PHYSICAL EXAMINATION: On examination, visual acuity with a +2 lens was 20/800 near equivalent for the right eye and counting fingers only for the left eye at 1 foot. Intraocular pressure was 15 mmHg twice right and 18 mmHg and 12 mmHg left with the Ivan-Pen. Pupils are equal and reactive without an afferent pupillary defect. The ocular motility shows good alignment and full range of motion. Dilated fundus exam revealed a very poor view into the fundus, but with the binocular indirect ophthalmoscope, the retina was flat, without any vascular abnormality such as hemorrhages or ischemic infarcts. The optic nerves were not elevated and of good color with a cup/disc ratio of about 0.5 or 0.6. Anterior segment exam with loupes showed some peripheral cortical opacities and fairly dense nuclear sclerotic changes, more so on the left eye, and probably some posterior subcapsular changes. DIAGNOSIS: Nuclear sclerotic cataracts. PLAN: We discussed with him that the solution for his near vision was having surgery once he gets all his major current medical problems stabilized. Job ID: [id number]
--- NOTE | 2019-04-20 12:23 | PDOC.PN ---
- Subjective Encounter Start Date: 04/20/19 Encounter Start Time: 12:00 Subjective: f/u s/p L AKA POD #4. Some pain in LLE. c/o scrotal edema with -: current George catheter in place. - Objective Resuscitation Status - Order Detail: 04/12/19 14:28 Resuscitation Status Routine Resuscitation Status: FULL: Full Resuscitation MAR Reviewed: Yes Vital Signs & Weight: Vital Signs (12 hours) Temp Pulse Pulse Pulse Resp BP BP 04/20/19 09:35 121/76 04/20/19 09:33 71 121/76 04/20/19 08:50 70 72 119/57 L 04/20/19 07:56 97.0 F L 71 18 04/20/19 04:00 97.8 F 72 20 04/20/19 01:20 20 BP BP Pulse Ox 04/20/19 09:35 04/20/19 09:33 04/20/19 08:50 119/60 04/20/19 07:56 121/76 96 04/20/19 04:00 141/68 H 97 04/20/19 01:20 Weight Weight 179 lb 4.8 oz I&O: 04/19/19 04/20/19 04/21/19 06:59 06:59 06:59 Intake Total 1621 1600 Output Total 2131 0 Balance -514 -450 Result Diagrams: 04/20/19 04:25 04/20/19 04:25 Additional Labs: Accuchecks 04/20/19 04/20/19 04/19/19 10:39 05:33 20:20 POC Glucose 158 H 119 H 214 H 04/19/19 16:46 POC Glucose 146 H Microbiology 04/12/19 16:33 Venous blood - Right Arm Blood Culture - Final Morganella morganii ssp ricki 04/12/19 16:30 Venous blood - Left Hand Blood Culture - Final Morganella morganii ssp ricki Laboratory Tests 03/15/19 03/15/19 03/17/19 17:02 17:02 04:58 Creatinine 1.69 H B-Natriuretic Peptide 6919.8 H 6633.0 H Urine Opiates Screen U Cocaine Metab Screen 04/13/19 04/14/19 04/15/19 03:25 04:20 03:53 Creatinine 3.20 H 3.15 H B-Natriuretic Peptide Urine Opiates Screen Detected H U Cocaine Metab Screen Detected H 04/16/19 04/17/19 04/18/19 07:15 04:46 04:36 Creatinine 2.97 H 2.27 H 1.70 H B-Natriuretic Peptide Urine Opiates Screen U Cocaine Metab Screen EKG Reviewed by me: Yes (Tele - SR) Phys Exam - Physical Examination Constitutional: NAD HEENT: PERRLA, sclera anicteric, oral pharynx no lesions Neck: no nodes, no JVD, supple, full ROM Respiratory: no wheezing, no rales, no rhonchi, clear to auscultation bilateral S1, S2 Cardiovascular: RRR, no significant murmur, no rub, gallop Gastrointestinal: soft, non-tender, no distention, positive bowel sounds no peripheral edema L AKA with intact stump Musculoskeletal: pulses present Neurological: normal sensation, moves all 4 limbs Psychiatric: A&O x 3 Skin: normal turgor, cap refill <2 seconds Deviation from normal: scrotal edema noted, George in place with genesis urine Dx/Plan (1) Cellulitis and abscess of left leg Code(s): L03.116 - CELLULITIS OF LEFT LOWER LIMB; L02.416 - CUTANEOUS ABSCESS OF LEFT LOWER LIMB Status: Acute Comment: s/p left AKA on 04/16/19, local WCT , pain control (2) Bacteremia Code(s): R78.81 - BACTEREMIA Status: Acute Comment: Morganella sp, Meropenem , Dr. Rivera following (3) FIDENCIO (acute kidney injury) Code(s): N17.9 - ACUTE KIDNEY FAILURE, UNSPECIFIED Status: Acute Comment: Improved with supportive mgmt, avoid nephrotoxic agents and limit contrast exposure (4) Blurred vision, bilateral Code(s): H53.8 - OTHER VISUAL DISTURBANCES Status: Acute Comment: Decreased visual acuity, consult Ophthalmology for evaluation (5) PVD (peripheral vascular disease) Code(s): I73.9 - PERIPHERAL VASCULAR DISEASE, UNSPECIFIED Status: Chronic Comment: Continue ASA 325mg daily (6) CKD (chronic kidney disease) stage 3, GFR 30-59 ml/min Status: Chronic Comment: Avoid nephrotoxic meds and limit contrast exposure (7) Cocaine abuse Code(s): F14.10 - COCAINE ABUSE, UNCOMPLICATED Status: Chronic (8) DM type 2 (diabetes mellitus, type 2) Status: Chronic Qualifiers: Diabetes mellitus [facility] insulin use: 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 Diabetes mellitus complication status: with kidney complications Diabetes mellitus complication detail: with chronic kidney disease Chronic kidney disease stage : stage 3 (moderate) Qualified Code(s): E11.22 - Type 2 diabetes mellitus with diabetic chronic kidney disease; N18.3 - Chronic kidney disease, stage 3 ( moderate); Z79.4 - correction (current) use of insulin Comment: Continue Glipizide, Lantus, ISS, ADA - Plan continue antibiotics, PT/OT, social work manager Stable currently -: Pain control as clinically indicated -: Lasix 40mg IV x 1 dose today -: PT for mobilization -: Rehab screening in progress * Continue Meropenem * Likely to Rehab in 24h
[2019-04-20] MEDS ORDERED: Furosemide 40 MG/4 ML VIAL SLOW IVP SCH (12:30)
[2019-04-20] MEDS: HumaLOG 300 UNITS/3 ML VIAL SC PRN (13:07)
[2019-04-20 14:17] VITALS: BMI 26.4
[2019-04-20] MEDS: Acetaminophen/Codeine 30-300mg Tablet PO PRN (14:31)
[2019-04-21] MEDS ORDERED: Mometasone/Formoterol 120 PUFF INHALER ONE (06:32)
[2019-04-21] MEDS: Mometasone/Formoterol 120 PUFF INHALER INH SCH ×3 (06:57→18:53)
--- NOTE | 2019-04-21 08:26 | PRG ---
DATE OF SERVICE: 04/20/2019 SUBJECTIVE: The patient seems to be doing much better, hemodynamically stable. PHYSICAL EXAMINATION: HEENT: Unremarkable. CARDIOVASCULAR SYSTEM: First and second heart sounds were heard. RESPIRATORY SYSTEM: Clear to auscultation. DIGESTIVE SYSTEM: Revealed a benign abdomen with positive bowel sounds. EXTREMITIES: No peripheral edema. SKIN: No new gross rash. LYMPHATICS: No peripheral lymphadenopathy. LABORATORY INVESTIGATION: Showed a creatinine down to 1.12. IMPRESSION: 1. Acute on chronic kidney disease, which seems to have improved. 2. Anemia. 3. Cardiomyopathy. PLAN: 1. We will deescalate blood draws to avoid iatrogenic anemia. 2. Continue renal supportive measures. 3. Further management will be dependent on the clinical course. Job ID: [id number]
[2019-04-21] MEDS: Insulin Glargine 5 UNITS in Pre-Filled Syringe 1 EACH SC SCH ×3 (09:16→21:11)
[2019-04-21] MEDS: Carvedilol 6.25 MG TAB PO SCH ×4 (09:16→21:12)
[2019-04-21] MEDS: glipiZIDE 5 MG TAB PO SCH ×4 (09:16→21:11)
[2019-04-21] MEDS: MEROPENEM 1 GM/50 ML 1 GM in Premix Bag 1 BAG IVPB SCH ×7 (09:17→21:09)
[2019-04-21] MEDS: Lisinopril 5 MG TAB PO SCH ×4 (09:17→21:12)
[2019-04-21] MEDS: Acetaminophen/Codeine 30-300mg Tablet PO PRN ×3 (09:19→21:06)
[2019-04-21] MEDS: Furosemide 40 MG TAB PO SCH ×2 (09:20→14:06)
[2019-04-21] MEDS: Ferrous Gluconate 324 MG TAB PO SCH (09:20)
[2019-04-21] MEDS: Aspirin 325 mg Enteric Coated Tablet PO SCH (09:22)
[2019-04-21] MEDS: Enoxaparin Sodium 30 MG/0.3 ML SYRINGE SC SCH (09:23)
[2019-04-21 10:36] LABS: Hemoglobin 10.7 g/dL (14.0-18.0); Red Blood Cell (RBC) Count 3.66 mill/uL (4.70-6.10); White Blood Cell (WBC) Count 26.7 thou/uL (4.8-10.8)
[2019-04-21 10:37] LABS: Mean Corpuscular HGB CONC 31.3 g/dL (32.0-36.0); Mean Corpuscular Hemoglobin 29.2 pg (27.0-31.0); Mean Platelet Volume 8.9 fL (7.4-10.4); Platelet Count 222 thou/uL (130-400)
[2019-04-21 10:38] LABS: Band 10 % (5-11); Lymphocytes 9 % (21-51); Monocytes 6 % (0-10); Polychromasia MODERATE = 3-4 cells (100X) (0-2/hpf); Target Cells SLIGHT = 2-5 cells (100X) (0-1/hpf)
[2019-04-21 10:39] LABS: Neutrophil 74 % (42-75); Platelet Morphology Comment Appears Adequate
[2019-04-21] MEDS: HumaLOG 300 UNITS/3 ML VIAL SC PRN ×2 (11:44→17:12)
[2019-04-21 12:16] LABS: Mean Corpuscular Volume 93.2 fL (78.0-98.0)
[2019-04-21 18:39] LABS: Anion Gap 12 mmol/L (10-20); BUN (Urea Nitrogen) 26 mg/dL (8.4-25.7); Calc. Creatinine Clearance 89 mL/min (70-130); Calcium 8.2 mg/dL (7.8-10.44); Carbon Dioxide 27 mmol/L (22-29); Chloride 103 mmol/L (98-107); Estimated GFR-MDRD 90; Glucose 126 mg/dL (70-105); Potassium 4.1 mmol/L (3.5-5.1); Sodium 138 mmol/L (136-145)
--- NOTE | 2019-04-21 18:39 | PRG ---
DATE OF SERVICE: 04/21/2019 SUBJECTIVE: The patient was seen and examined, still maintaining same clinical improvement. Noted with the following vital signs. OBJECTIVE: VITAL SIGNS: Afebrile, temperature 98, pulse 76, respiratory rate of 20, O2 saturation are 99% with blood pressure 139/64. HEENT: Unremarkable. Moist oral mucosa. NECK: Supple. No conjunctival injection or icterus. CARDIOVASCULAR SYSTEM: First and second heart sounds were heard. RESPIRATORY SYSTEM: Clear to auscultation. DIGESTIVE SYSTEM: Revealed a benign abdomen. Positive bowel sounds. EXTREMITIES: No peripheral edema. SKIN: No new gross rash. LYMPHATICS: No peripheral lymphadenopathy. IMPRESSION: 1. Acute kidney injury, which has resolved. 2. Cardiomyopathy. 3. Sepsis. PLAN: Continue current renal supportive measures. Job ID: [id number]
[2019-04-21] MEDS ORDERED: Atorvastatin Calcium 20 MG TAB PO SCH (21:00)
--- NOTE | 2019-04-21 21:29 | PDOC.PN ---
- Subjective Encounter Start Date: 04/21/19 Encounter Start Time: 09:00 Complains of the George catheter and the scrotal edema. Makes it difficult for him to sleep. Says he has some pain the left stump. - Objective Resuscitation Status - Order Detail: 04/12/19 14:28 Resuscitation Status Routine Resuscitation Status: FULL: Full Resuscitation Vital Signs & Weight: Vital Signs (12 hours) Temp Pulse Resp BP BP Pulse Ox 04/21/19 21:12 71 136/70 04/21/19 18:53 71 12 04/21/19 15:17 98.0 F 76 20 139/64 99 04/21/19 11:46 98 F 74 18 122/59 L 99 04/21/19 10:18 97 Weight Admit Weight 188 lb Weight 179 lb 4.8 oz I&O: 04/20/19 04/21/19 04/22/19 06:59 06:59 06:59 Intake Total 1600 570 960 Output Total 2050 1900 1300 Balance -176 -0692 -577 Result Diagrams: 04/21/19 05:34 04/21/19 05:15 Additional Labs: Accuchecks 04/21/19 04/21/19 04/21/19 20:19 16:42 10:59 POC Glucose 234 H 185 H 169 H 04/21/19 04/20/19 05:17 20:05 POC Glucose 133 H 107 Phys Exam - Physical Examination Constitutional: NAD Respiratory: no wheezing, no rales, no rhonchi Cardiovascular: RRR, no significant murmur Gastrointestinal: soft, non-tender, no distention Musculoskeletal: no edema Left AKA. Psychiatric: normal affect, A&O x 3 Dx/Plan (1) FIDENCIO (acute kidney injury) Code(s): N17.9 - ACUTE KIDNEY FAILURE, UNSPECIFIED Status: Acute Comment: Improved with supportive mgmt, avoid nephrotoxic agents and limit contrast exposure (2) Blurred vision, bilateral Code(s): H53.8 - OTHER VISUAL DISTURBANCES Status: Acute Comment: Decreased visual acuity, consult Ophthalmology for evaluation (3) PVD (peripheral vascular disease) Code(s): I73.9 - PERIPHERAL VASCULAR DISEASE, UNSPECIFIED Status: Chronic Comment: Continue ASA 325mg daily (4) Cardiomyopathy Code(s): I42.9 - CARDIOMYOPATHY, UNSPECIFIED Status: Acute Qualifiers: Cardiomyopathy type: unspecified Qualified Code(s): I42.9 - Cardiomyopathy , unspecified (5) CAD (coronary artery disease) Code(s): I25.10 - ATHSCL HEART DISEASE OF [place] CORONARY ARTERY W/O ANG PCTRS Status: Chronic Qualifiers: Coronary Disease-Associated Artery/Lesion type: [place] artery [place] vs. transplanted heart: [place] heart Associated angina: without angina Qualified Code(s): I25.10 - Atherosclerotic heart disease of [place] coronary artery without angina pectoris (6) CKD (chronic kidney disease) stage 3, GFR 30-59 ml/min Status: Chronic Comment: Avoid nephrotoxic meds and limit contrast exposure (7) COPD (chronic obstructive pulmonary disease) Status: Chronic Qualifiers: Emphysema type: unspecified Comment: Continue Duonebs, add Dulera 2 puffs BID (8) Cocaine abuse Code(s): F14.10 - COCAINE ABUSE, UNCOMPLICATED Status: Chronic (9) DM type 2 (diabetes mellitus, type 2) Status: Chronic Qualifiers: Diabetes mellitus terminologist insulin use: with retirement use Diabetes mellitus complication status: with kidney complications Diabetes mellitus complication detail: with chronic kidney disease Chronic kidney disease stage : stage 3 (moderate) Qualified Code(s): E11.22 - Type 2 diabetes mellitus with diabetic chronic kidney disease; N18.3 - Chronic kidney disease, stage 3 ( moderate); 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 * Continue current plan. * Awaiting rehab bed. * WBC trending upward. Still on Merem pre ID.
--- NOTE | 2019-04-21 21:58 | PDOC.GSPN ---
Surgery Progress Note: Subj - Subjective Narrative: Leg feels OK but has to dangle right leg off bed to be comfortable. Worsening scrotal edema and abdominal distention. Incision looks good, anasarca is worse. No sores or erythema on right leg. WBC still high but no fevers. A/P) S/p L AKA doing well from this but worsening anasarca, abdominal distention most likely due to ascites, anasarca and RLE ischemia. This is likely all related to worsening heart failure. Might beneit from additional diuretics, but cardiac function is extremely poor. Scrotal swelling is not related to his surgery or to the George catheter, as the patient has assumed, and I informed him of this. Unfortunately, he is under the impression that his heart is "back to normal", which is not the case. If his cardiac output does not improve, he will develop gangrene of his remaining leg soon, but he states "If that leg goes, I'm going with it." I am unsure what the source of leukocytosis is. No evident wound/extremity or abdominal source. May need additional imaging. Surgery Progress Note: Obj - Vital signs Vital signs: Vital Signs - Most Recent Temp Pulse Resp BP Pulse Ox 98.0 F 71 12 136/70 99 04/21/19 15:17 04/21/19 21:12 04/21/19 18:53 04/21/19 21:12 04/21/19 15:17 Surgery Progress Note: Results - Labs Result Diagrams: 04/21/19 05:34 04/21/19 05:15 Lab results: Laboratory Results - last 24 hr 04/21/19 04/21/19 04/21/19 05:15 05:34 10:59 WBC 26.7 H RBC 3.66 L Hgb 10.7 L Hct 34.1 L MCV 93.2 MCH 29.2 MCHC 31.3 L RDW 18.0 H Plt Count 222 MPV 8.9 Neutrophils % (Manual) 74 Band Neuts % (Manual) 10 Lymphocytes % (Manual) 9 L Monocytes % (Manual) 6 Basophils % (Manual) 1 Plt Morphology Comment Appears Adequate Polychromasia MODERATE = 3-4 cells H Target Cells SLIGHT = 2-5 cells Sodium 138 Potassium 4.1 Chloride 103 Carbon Dioxide 27 Anion Gap 12 BUN 26 H Creatinine 1.03 Estimated GFR (MDRD) 90 Glucose 126 H POC Glucose 169 H Calcium 8.2 04/21/19 04/21/19 16:42 20:19 WBC RBC Hgb Hct MCV MCH MCHC RDW Plt Count MPV Neutrophils % (Manual) Band Neuts % (Manual) Lymphocytes % (Manual) Monocytes % (Manual) Basophils % (Manual) Plt Morphology Comment Polychromasia Target Cells Sodium Potassium Chloride Carbon Dioxide Anion Gap BUN Creatinine Estimated GFR (MDRD) Glucose POC Glucose 185 H 234 H Calcium
[2019-04-22] MEDS: Acetaminophen/Codeine 30-300mg Tablet PO PRN ×2 (00:53→16:32)
[2019-04-22] MEDS: MEROPENEM 1 GM/50 ML 1 GM in Premix Bag 1 BAG IVPB SCH ×2 (06:28→15:36)
[2019-04-22 06:51] LABS: Band 3 % (5-11); Eosinophils 2 % (0-10); Hemoglobin 9.5 g/dL (14.0-18.0); Lymphocytes 6 % (21-51); MDiff Complete? YES; Mean Corpuscular HGB CONC 30.5 g/dL (32.0-36.0); Mean Corpuscular Hemoglobin 28.9 pg (27.0-31.0); Mean Corpuscular Volume 94.8 fL (78.0-98.0); Mean Platelet Volume 8.7 fL (7.4-10.4); Monocytes 3 % (0-10); Myelocyte 1 % (0-0); Neutrophil 85 % (42-75); Nucleated RBC 1 % (0); Platelet Count 231 thou/uL (130-400); RBC Distribution Width 17.8 % (11.5-14.5); Red Blood Cell (RBC) Count 3.29 mill/uL (4.70-6.10); White Blood Cell (WBC) Count 24.6 thou/uL (4.8-10.8)
[2019-04-22] MEDS: Mometasone/Formoterol 120 PUFF INHALER INH SCH ×2 (06:55→18:56)
[2019-04-22] MEDS ORDERED: DOBUTamine 500 mg/250 ml 250 ML IVPB SCH (08:30)
[2019-04-22] MEDS: Aspirin 325 mg Enteric Coated Tablet PO SCH (09:12)
[2019-04-22] MEDS: Furosemide 40 MG TAB PO SCH ×2 (09:13→16:28)
[2019-04-22] MEDS: Lisinopril 5 MG TAB PO SCH (09:13)
[2019-04-22] MEDS: Ferrous Gluconate 324 MG TAB PO SCH (09:13)
[2019-04-22] MEDS: glipiZIDE 5 MG TAB PO SCH (09:13)
[2019-04-22] MEDS: Enoxaparin Sodium 30 MG/0.3 ML SYRINGE SC SCH (09:14)
[2019-04-22] MEDS: Morphine 4 MG/ML VIAL SLOW IVP PRN (11:16)
[2019-04-22] MEDS ORDERED: Furosemide 40 MG/4 ML VIAL SLOW IVP SCH (14:00)
[2019-04-22] MEDS ORDERED: cefTRIAXone\\ROCEPHIN 1 GM in Sodium Chloride 0.9% 100 ML IVPB SCH (16:00)
--- NOTE | 2019-04-22 16:26 | PRG ---
DATE OF SERVICE: 04/22/2019 SUBJECTIVE: Awake, alert, having [id number] pain in the left AKA stump site. No chest pain. No abdominal pain. Voiding without difficulty. OBJECTIVE: VITAL SIGNS: Temperature max 98.3, blood pressure 120/67, pulse 73, respirations 20, and O2 saturation 100%. GENERAL: Awake, alert, oriented, and talkative. LUNGS: Clear. HEART: S1 and S2, regular rate. ABDOMEN: Soft. No bladder distention. Amputation site with small dressing. Moderate tenderness. LABORATORY DATA: White cell count is still elevated at 24.6, hemoglobin 9.5, platelets 231 with 85% neutrophils. Sodium 138, creatinine 1.03 and microbiology noted before with Morganella. He is currently receiving meropenem still. The Morganella is quite sensitive, so we will go ahead and transition him to Rocephin. Discontinue meropenem. The patient to be transferred soon. The antimicrobial therapy discontinuation date will depend on improvement in his white cell count and the status of the wound progress. Job ID: [id number]
[2019-04-22 17:08] VITALS: BP 131/66; TEMP 97.8
--- NOTE | 2019-04-23 19:57 | DIS ---
DATE OF ADMISSION: 04/12/2019 DATE OF DISCHARGE: 04/22/2019 DISCHARGE DIAGNOSES: 1. Left lower extremity cellulitis/fasciitis. 2. Severe peripheral vascular disease. 3. Severe cardiomyopathy with EF of 15% to 20%. 4. Severe tricuspid regurgitation. 5. . 6. Bacteremia with Morganella morganii. 7. Chest pain with demand ischemia. 8. Sepsis secondary to cellulitis/fasciitis. 9. Chronic obstructive pulmonary disease. 10. Hypertension. 11. History of coronary artery disease. 12. Diabetes mellitus. 13. Scrotal edema. 14. History of cocaine abuse. 15. History of medical noncompliance. HISTORY OF PRESENT ILLNESS: This patient is a 58-year-old male with history of prior cocaine and tobacco abuse with coronary artery disease and severe extensive cardiomyopathy with ejection fraction of 15% to 20% and multiple valvular disorders and history of noncompliance with medical interventions. The patient had developed ulceration on his left lower extremity and was seen at [facility], where he had suturing in the left calf in order to oversew the bleeding associated with this lesion. The patient subsequently developed severe pain, fevers and chills and presented to the emergency department at [facility]. The patient was also noted to have history of chronic kidney disease, diabetes, hypertension. The patient appeared to have significant cellulitis and possibly fasciitis. He was also noted to have indeterminate level troponins with worsening renal function and a BNP of 12,600. HOSPITAL COURSE: The patient was admitted to the hospital. He was started on Rocephin and vancomycin for the cellulitis. He was noted to appear to have sepsis with white count of 33,000. He was seen in consultation by Infectious Disease, Cardiology, and General Surgery and Nephrology. With regard to his infectious process, the patient was noted to have some positive blood cultures, which were growing gram negatives. Dr. Rivera changed the patient to meropenem and Levaquin and subsequently, these cultures were positive for Morganella morganii and the patient was maintained on meropenem as this appeared to be a fairly sensitive organism. The patient maintained an elevated white count throughout his hospitalization, although he was afebrile and appeared to have no persistent infection. The patient's left lower extremity was felt to have compromised arterial perfusion. He did undergo arterial studies, which confirmed this. Surgery felt that the patient would likely not resolve the infectious process nor heal with a jdijl-nhz-ybru amputation and therefore, Vascular Surgery was consulted. They recommended tehrq-odr-licx amputation. The patient had a repeat echocardiogram revealing the findings above. The patient appeared to be in significant failure and sepsis and his elevated troponins were felt to be type 2 STEMI related to demand ischemia from sepsis and heart failure and his numbers were worse because of his underlying renal insufficiency. Because of the sepsis, the patient was gently hydrated. The patient was noted to be high risk for any surgical interventions due to his cardiomyopathy. The patient initially was not amenable to aggressive surgical intervention such as amputation. However, the pain in his leg was to the extent that ultimately he did agree to pursue amputation, although he understood well that the risk was significantly high and he was able to successfully undergo ahuhm-xvq-apep amputation on the left on 04/16/2019. The patient had a George catheter placed during surgery and that was maintained. Subsequently, the patient developed significant scrotal edema. Postoperatively, the patient had good healing of the wound initially with the wound VAC and then to dry dressing changes. He continued to have some edema in the left stump along with a scrotal edema which caused him some degree of discomfort. From a cardiac standpoint, the patient was maintained on his diuresis and did fairly well. His white count remained elevated, but he had no evidence of fever and at that point, he was felt to be stable for discharge to a rehab facility given the patient's new amputation. He was ultimately accepted to the inpatient rehab facility. He was seen by Dr. Rivera on the day of discharge, who recommended changing the meropenem to the Rocephin with no specific endpoint for treatment as that would be determined by his clinical course. The patient was also seen by the Palliative Care Team and was evaluated by Dr. Turner in consultation for some visual disturbance and was diagnosed with nuclear sclerotic cataracts and recommended outpatient followup once he was stable. PHYSICAL EXAMINATION: VITAL SIGNS: On day of discharge, temperature was 97.8, pulse 83, respirations 14, O2 saturation 96% on room air, BP 131/66. GENERAL APPEARANCE: Age-appropriate male. He is awake and alert. No distress. HEART: Regular with grade 2 murmur. LUNGS: Clear bilaterally with no wheezes. ABDOMEN: Benign. EXTREMITIES: Left lower extremity still has some edema of the stump. There is no drainage on the dressing. Right lower extremity has no edema. Has diminished pulses. DISPOSITION: The patient is discharged to the rehab facility. ACTIVITY: As tolerated. DIET: He will be on a diabetic diet. THERAPY: He will have occupational and physical therapy. MEDICATIONS: Will include: 1. DuoNeb p.r.n. 2. Tylenol No.3 p.r.n. 3. Aspirin 325 daily. 4. Atorvastatin 20 mg at bedtime. 5. Lovenox 30 units subcu q.a.m. 6. Ferrous gluconate 324 mg p.o. daily. 7. Lasix 40 mg b.i.d. 8. Glipizide 2.5 mg b.i.d. 9. Insulin Lantus 5 units subcu at bedtime. 10. Lisinopril 5 mg daily. 11. Meropenem wants to be transitioned to Rocephin per Dr. Rievra. 12. Dulera 2 puffs b.i.d. 13. Coreg 6.25 daily. 14. Potassium 20 mEq p.o. daily. FOLLOWUP: Upon discharge from rehab, the patient will follow up with the [facility], Dr. Khan and Dr. Baig. Can follow up with his PCP as well. He can return to the emergency room or hospital should he have any problems prior to that time. TIME SPENT: Total time in discharge planning including qqlj-mp-aoyv time with the patient was 42 minutes. Job ID: [id number]
== END 2019-04-22 18:15 | DRG 853 ==
LOC: ERS 10:51 → 2NO 12:55
PROVIDERS: ADMIT Internal Medicine; ATTEND Internal Medicine
PROC: 0Y6D0Z2 Detachment at Left Upper Leg, Mid, Open Approach (ICD-10-PCS; principal; 2019-04-16)
DX: A41.50 Gram-negative sepsis, unspecified (principal); I21.A1 Myocardial infarction type 2; I50.23 Acute on chronic systolic (congestive) heart failure; I13.0 Hypertensive heart and chronic kidney disease with heart failure and stage 1 through stage 4 chronic kidney disease, or unspecified chronic kidney disease; L02.416 Cutaneous abscess of left lower limb; L03.116 Cellulitis of left lower limb; N17.9 Acute kidney failure, unspecified; E87.2 Acidosis; L97.929 Non-pressure chronic ulcer of unspecified part of left lower leg with unspecified severity; I47.1 Supraventricular tachycardia; I25.10 Atherosclerotic heart disease of native coronary artery without angina pectoris; E78.00 Pure hypercholesterolemia, unspecified; I25.5 Ischemic cardiomyopathy; E11.51 Type 2 diabetes mellitus with diabetic peripheral angiopathy without gangrene; E11.22 Type 2 diabetes mellitus with diabetic chronic kidney disease; N18.3 Chronic kidney disease, stage 3 (moderate); J44.9 Chronic obstructive pulmonary disease, unspecified; F17.210 Nicotine dependence, cigarettes, uncomplicated; D63.1 Anemia in chronic kidney disease; E87.5 Hyperkalemia; I07.1 Rheumatic tricuspid insufficiency; B96.4 Proteus (mirabilis) (morganii) as the cause of diseases classified elsewhere; M72.8 Other fibroblastic disorders; Z51.5 Encounter for palliative care; F14.10 Cocaine abuse, uncomplicated; H53.8 Other visual disturbances; N50.89 Other specified disorders of the male genital organs; Z91.14 Patient's other noncompliance with medication regimen; Z95.5 Presence of coronary angioplasty implant and graft; Z95.810 Presence of automatic (implantable) cardiac defibrillator; Z79.84 Long term (current) use of oral hypoglycemic drugs; Z79.899 Other long term (current) drug therapy; Z79.82 Long term (current) use of aspirin
CPT/HCPCS: 36415; 36416; 71045; 76999; 80048; 80053; 80306; 81015; 82306; 82550; 82553; 82728; 83540; 83550; 83605; 83735; 83880; 83970; 84484; 85025; 87040; 87077; 87149; 87186; 93005; 93306; 93925; 93970; 94640; 94760; 96374; 96375; 99406; J0696; J1250; J1642; J1644; J1650; J1815; J1885; J1940; J1956; J2185; J2250; J2270; J2405; J2916; J3010; J3370; J3490; J7050; J7070; J7620

== ENCOUNTER 2019-04-22 19:05 | Emergency (ER) | payer MEDICARE | END 2019-04-23 00:18 | LOC: ERS 19:05 | DX: I42.9 Cardiomyopathy, unspecified (principal); E11.9 Type 2 diabetes mellitus without complications; E78.5 Hyperlipidemia, unspecified; I11.0 Hypertensive heart disease with heart failure; I50.9 Heart failure, unspecified; I25.2 Old myocardial infarction; J44.9 Chronic obstructive pulmonary disease, unspecified; F17.210 Nicotine dependence, cigarettes, uncomplicated; Z79.82 Long term (current) use of aspirin; Z79.899 Other long term (current) drug therapy; Z79.891 Long term (current) use of opiate analgesic | CPT/HCPCS: 93005 ==

== ENCOUNTER 2019-05-20 15:05 | Emergency (ER) | payer MEDICARE ==
[2019-05-20] MEDS ORDERED: Morphine 4 MG/ML VIAL ONE (15:49)
[2019-05-20] MEDS ORDERED: Ondansetron PF 4 MG/2 ML Vial ONE (15:49)
[2019-05-20] MEDS ORDERED: Piperacillin/Tazobactam 4.5 GM VIAL ONE (15:56)
[2019-05-20 16:11] LABS: #Eosinphils 0.2 thou/uL (0.0-0.7); #Lymphocytes 1.5 thou/uL (1.20-3.40); #Monocytes 1.2 thou/uL (0.11-0.59); #Neutrophils 7.7 thou/uL (1.40-6.50); %Basophils 0.3 % (0.0-1.0); %Eosinophils 1.6 % (0.0-10.0); %Lymphocytes 13.8 % (21.0-51.0); %Neutrophils 73.2 % (42.0-75.0); Hemoglobin 11.3 g/dL (14.0-18.0); Mean Corpuscular HGB CONC 30.5 g/dL (32.0-36.0); Mean Corpuscular Hemoglobin 27.6 pg (27.0-31.0); Mean Corpuscular Volume 90.4 fL (78.0-98.0); Mean Platelet Volume 9.2 fL (7.4-10.4); Platelet Count 228 thou/uL (130-400); RBC Distribution Width 16.6 % (11.5-14.5); White Blood Cell (WBC) Count 10.5 thou/uL (4.8-10.8)
[2019-05-20 16:34] LABS: ALT (SGPT) 11 U/L (8-55); AST (SGOT) 17 U/L (5-34); Albumin 3.7 g/dL (3.5-5.0); Alkaline Phosphatase 118 U/L (40-150); Anion Gap 17 mmol/L (10-20); BUN (Urea Nitrogen) 22 mg/dL (8.4-25.7); Bilirubin, Total 1.7 mg/dL (0.2-1.2); Calc. Creatinine Clearance 0 mL/min (70-130); Calcium 9.5 mg/dL (7.8-10.44); Carbon Dioxide 19 mmol/L (22-29); Chloride 104 mmol/L (98-107); Estimated GFR-MDRD 64; Globulin 4.4 g/dL (2.4-3.5); Glucose 75 mg/dL (70-105); Potassium 4.1 mmol/L (3.5-5.1); Protein, Total 8.1 g/dL (6.0-8.3); Sodium 136 mmol/L (136-145)
--- NOTE | 2019-05-20 17:53 | CT ---
CT of the left femur: 05/20/2019 COMPARISON: None HISTORY: Pain, above knee amputation performed approximately 1 month ago, pain TECHNIQUE: Axial CT imaging obtained at 2.5 mm intervals from the axial level of the lower lumbar spi ne through the postoperative left femur with coronal and sagittal reformatted imaging. Images are performed with IV contrast administration FINDINGS: There is stranding of the subcutaneous fat throughout the imaged lower abdomen, pelvis, and imaged portions of bilateral lower extremities, with diffuse skin thickening, and scrotal wall edema, evidence of anasarca. There is small/moderate volume free fluid within the imaged abdomen/pelv is. There is atherosclerotic calcification seen throughout the imaged arterial structures of the lower abdomen, pelvis, and imaged bilateral lower extremities. There is a fluid collection involving the subcutaneous fat at the level of the postoperative site sta tus post left above-knee amputation. This fluid collection measures at least 5.5 cm AP dimension and 10.1 cm transverse dimension at the axial level of the distal tip of the remaining left femur. Th is fluid collection appears multi loculated and extends into the adjacent musculature posteriorly medially and laterally within the distal left thigh, measuring up to approximately 6.1 cm in cranioca udal dimension laterally and up to approximately 7 cm posteromedially. There is postoperative curvilinear drain along the inferior most aspect of this fluid collection. The internal Hounsfield un its of this fluid collection measure up to 40-45. There is no internal gas. There is mild wall enhancement of this fluid collection. Review of the osseous structures demonstrates no worrisome lytic or blastic bone lesion. IMPRESSION: There is a complex loculated fluid collection at the postoperative site with multifocal i ntramuscular extension. This could represent a postoperative hematoma and/or abscess. Anasarca/ascites.
== END 2019-05-20 21:55 | disposition home or self-care (01) ==
LOC: ERS 15:05
DX: M96.841 Postprocedural hematoma of a musculoskeletal structure following other procedure (principal); E11.9 Type 2 diabetes mellitus without complications; E78.5 Hyperlipidemia, unspecified; F17.210 Nicotine dependence, cigarettes, uncomplicated; I11.0 Hypertensive heart disease with heart failure; I50.9 Heart failure, unspecified; I25.2 Old myocardial infarction; J44.9 Chronic obstructive pulmonary disease, unspecified; Z79.899 Other long term (current) drug therapy; Z79.82 Long term (current) use of aspirin; Z79.891 Long term (current) use of opiate analgesic
CPT/HCPCS: 36415; 80053; 83605; 85025; 87040; 87070; 87077; 87186; 87205; 96365; 96367; 96375; J2270; J2405; J2543; J3370; Q9966

== ENCOUNTER 2019-06-07 13:32 | Emergency (ER) | payer MEDICARE ==
[2019-06-07 14:29] LABS: Bilirubin Negative (Negative); Blood, Urine Trace (Negative); Clarity Clear (Clear); Glucose, Urine (Dipstick) Normal (Negative); Leukocyte Negative Leu/uL (Negative); Nitrite Negative (Negative); Protein, Urine (Dipstick) 50 mg/dL (Neg-Trace); RBC/HPF 0-3 HPF (0-3); Squamous Epithelial 0-3 HPF (0-3); Urobilinogen Normal mg/dL (Less than 2); WBC/HPF 0-3 HPF (0-3)
[2019-06-07 14:34] LABS: #Basophils 0.1 thou/uL (0.0-0.2); #Eosinphils 0.1 thou/uL (0.0-0.7); #Lymphocytes 0.8 thou/uL (1.20-3.40); #Monocytes 0.6 thou/uL (0.11-0.59); #Neutrophils 5.1 thou/uL (1.40-6.50); %Eosinophils 1.4 % (0.0-10.0); %Lymphocytes 11.5 % (21.0-51.0); %Monocytes 8.6 % (0.0-10.0); %Neutrophils 77.4 % (42.0-75.0); Hemoglobin 9.7 g/dL (14.0-18.0); Mean Corpuscular HGB CONC 30.6 g/dL (32.0-36.0); Mean Corpuscular Hemoglobin 25.7 pg (27.0-31.0); Mean Corpuscular Volume 83.9 fL (78.0-98.0); RBC Distribution Width 16.8 % (11.5-14.5); Red Blood Cell (RBC) Count 3.76 mill/uL (4.70-6.10); White Blood Cell (WBC) Count 6.5 thou/uL (4.8-10.8)
[2019-06-07 14:38] LABS: ALT (SGPT) 11 U/L (8-55); AST (SGOT) 38 U/L (5-34); Albumin 2.8 g/dL (3.5-5.0); Alkaline Phosphatase 84 U/L (40-150); Anion Gap 11 mmol/L (10-20); BUN (Urea Nitrogen) 19 mg/dL (8.4-25.7); Bilirubin, Total 1.3 mg/dL (0.2-1.2); Burr Cells SLIGHT = 2-5 cells (100X) (0-1/hpf); Calc. Creatinine Clearance 0 mL/min (70-130); Carbon Dioxide 23 mmol/L (22-29); Chloride 104 mmol/L (98-107); Estimated GFR-MDRD 54; Globulin 3.3 g/dL (2.4-3.5); Helmet Cells SLIGHT = 2-5 cells (100X) (0-1/hpf); Hypochromia SLIGHT = 6-15 cells (100X) (0-5/hpf); MDiff Complete? YES; Mean Platelet Volume 11.1 fL (7.4-10.4); Platelet Count 104 thou/uL (130-400); Platelet Morphology Comment Appears Decreased; Polychromasia SLIGHT = 2-3 cells (100X) (0-2/hpf); Potassium 3.9 mmol/L (3.5-5.1); Protein, Total 6.1 g/dL (6.0-8.3); Sodium 134 mmol/L (136-145); Target Cells SLIGHT = 2-5 cells (100X) (0-1/hpf); Tear Drops SLIGHT = 2-5 cells (100X) (0-1/hpf)
[2019-06-07 14:39] LABS: Glucose 59 mg/dL (70-105)
[2019-06-07 14:39] LABS: Bacteria/HPF None Seen HPF (None Seen)
[2019-06-07] MEDS ORDERED: metroNIDAZOLE 250 MG TAB ONE (17:26)
== END 2019-06-07 18:08 | disposition home or self-care (01) ==
LOC: ERS 13:32
DX: A04.72 Enterocolitis due to Clostridium difficile, not specified as recurrent (principal); R11.2 Nausea with vomiting, unspecified; I25.2 Old myocardial infarction; E11.9 Type 2 diabetes mellitus without complications; E78.5 Hyperlipidemia, unspecified; I10 Essential (primary) hypertension; J44.9 Chronic obstructive pulmonary disease, unspecified; Z87.891 Personal history of nicotine dependence; Z79.82 Long term (current) use of aspirin; Z79.84 Long term (current) use of oral hypoglycemic drugs; Z79.899 Other long term (current) drug therapy
CPT/HCPCS: 36415; 80053; 81003; 81015; 82274; 83630; 83880; 85025; 87045; 87046; 87324; 87449; 87899; 93005

== ENCOUNTER 2019-06-27 17:01 | Inpatient (IN) | payer MEDICARE ==
[2019-06-27] MEDS ORDERED: ISOVUE-370 76%-LOCM 1 ML ONE (17:06)
[2019-06-27] MEDS ORDERED: Morphine 4 MG/ML VIAL ONE (17:46)
[2019-06-27] MEDS ORDERED: Ondansetron PF 4 MG/2 ML Vial ONE (17:46)
[2019-06-27 17:56] LABS: #Eosinphils 0.1 thou/uL (0.0-0.7); #Lymphocytes 1.1 thou/uL (1.20-3.40); #Neutrophils 4.3 thou/uL (1.40-6.50); %Basophils 0.5 % (0.0-1.0); %Eosinophils 1.7 % (0.0-10.0); %Lymphocytes 16.7 % (21.0-51.0); %Monocytes 14.8 % (0.0-10.0); %Neutrophils 66.3 % (42.0-75.0); Hemoglobin 8.9 g/dL (14.0-18.0); Mean Corpuscular HGB CONC 31.3 g/dL (32.0-36.0); Mean Corpuscular Hemoglobin 27.4 pg (27.0-31.0); Mean Corpuscular Volume 87.6 fL (78.0-98.0); Mean Platelet Volume 10.5 fL (7.4-10.4); Platelet Count 140 thou/uL (130-400); RBC Distribution Width 20.7 % (11.5-14.5); Red Blood Cell (RBC) Count 3.24 mill/uL (4.70-6.10); White Blood Cell (WBC) Count 6.5 thou/uL (4.8-10.8)
[2019-06-27 18:18] LABS: ALT (SGPT) Less than 7 U/L (8-55); AST (SGOT) 13 U/L (5-34); Albumin 3.6 g/dL (3.5-5.0); Alkaline Phosphatase 115 U/L (40-150); Anion Gap 11 mmol/L (10-20); BUN (Urea Nitrogen) 23 mg/dL (8.4-25.7); Bilirubin, Total 0.9 mg/dL (0.2-1.2); Calc. Creatinine Clearance 0 mL/min (70-130); Carbon Dioxide 24 mmol/L (22-29); Chloride 105 mmol/L (98-107); Estimated GFR-MDRD 51; Globulin 3.6 g/dL (2.4-3.5); Glucose 103 mg/dL (70-105); Potassium 4.5 mmol/L (3.5-5.1); Protein, Total 7.2 g/dL (6.0-8.3); Sodium 135 mmol/L (136-145)
--- NOTE | 2019-06-27 18:49 | CT ---
CT Lower Ext Lt W Con History: Left lower extremity pain Comparison: CT left lower extremity May 20, 2019 Findings: The peripherally enhancing collection has improved from the comparison examination although there is a sinus tract to the skin. The wall enhancement and thickening has increased from the comparison exam. There is extension of peripherally enhancing collection to the sartorius, gracilis a nd semimembranosus muscles. There is also extension into the vastus lateralis and intermedius. Increasing periostitis along the distal femur. This collection does touch the stump cortex. Reactive inguinal lymph nodes. Moderate ascites. Focal near complete occlusion left common femoral ar ethel with complete occlusion of the femoral artery. Impression: 1. Size improving peripherally enhancing abscess with decreased intramuscular extension. Collection d oes contain gas with a skin sinus tract. The collection does abut the femoral stump cortex with increased periostitis indicating a component of osteomyelitis. 2. Occlusion of the femoral artery with poor muscular enhancement.
[2019-06-27] MEDS ORDERED: Piperacillin/Tazobactam 4.5 GM VIAL ONE (20:01)
[2019-06-27] MEDS ORDERED: Vancomycin HCl 1 GM in Premix Bag 1 BAG IVPB SCH (20:30)
[2019-06-27] MEDS ORDERED: Dextrose 5% in Water 1,000 ML IV PRN (21:11)
[2019-06-27] MEDS ORDERED: Ondansetron PF 4 MG/2 ML Vial IVP PRN (21:11)
[2019-06-27] MEDS ORDERED: Senokot S 8.6-50 MG TAB PO PRN (21:11)
[2019-06-27] MEDS ORDERED: Ondansetron ODT 4 MG TAB PO PRN (21:11)
[2019-06-27] MEDS ORDERED: Bisacodyl 10 MG SUPP PR PRN (21:11)
[2019-06-27] MEDS ORDERED: Calcium Carbonate 500 MG ChewTAB PO PRN (21:11)
[2019-06-27] MEDS ORDERED: HumaLOG 300 UNITS/3 ML VIAL SC PRN (21:11)
[2019-06-27] MEDS ORDERED: Loperamide HCl 2 MG CAP PO PRN (21:11)
[2019-06-27] MEDS ORDERED: Zolpidem Tartrate 5 MG TAB PO PRN (21:11)
[2019-06-27] MEDS ORDERED: Dextrose 50% Abboject 50 ML SYRINGE SLOW IVP PRN (21:11)
--- NOTE | 2019-06-27 21:41 | HP ---
PRIMARY CARE PHYSICIAN: David Rowell MD REASON FOR ADMISSION: Osteomyelitis with abscess at left AKA site. HISTORY OF PRESENT ILLNESS: A 58-year-old male, who has cardiomyopathy with EF 15% to 20%, who was recently admitted in the hospital on June 20, 2019. At that time, the patient was treated for acute on chronic systolic congestive heart failure. He was treated with IV Lasix with significant improvement by the time of discharge. The patient has the left AKA and he has 1 spot draining serosanguineous purulent material. When he was discharged home, he was evaluated by wound care nurse and she noted that the patient was having little bit of serosanguineous purulent discharge through that small wound and that is why he was instructed to go to emergency room. The patient also noticed that his left AKA site is a size increased and he has throbbing pain. He did not have any fever, chills, but he has pain which was throbbing in nature, about 8/10 as well as purulent discharge made him to come to emergency room for evaluation. In the emergency room, his blood test was pretty much unremarkable. He had CT lower extremity and found with peripherally enhancing abscess with decreased intramuscular extension. Collection does contain gas with skin sinus tract and there was finding suggestive of osteomyelitis. The patient does have significant peripheral vascular disease with occlusion of femoral artery with poor muscular enhancement. In the emergency room, the patient was given Zosyn and admitted for further evaluation and treatment. Per the patient, he was no longer requiring packing at surgical site, because wound healed significantly. Only one point was open and it was draining purulent material. The patient also reports that he has finished antibiotic recently. Currently, he does not have any orthopnea, PND, or leg swelling. He is on room air. He has chronic shortness of breath, but nothing worsening at this time. REVIEW OF SYSTEMS: CONSTITUTIONAL: Negative for weight loss or gain, ability to conduct usual activities. SKIN: Negative for rash, itching. EYES: Negative for double vision, pain. ENT/MOUTH: Negative for nose bleeding, neck stiffness, pain, tenderness. CARDIOVASCULAR: Negative for palpitations, dyspnea on exertion, orthopnea. RESPIRATORY: Negative for shortness of breath, wheezing, cough, hemoptysis, fever or night sweats. GASTROINTESTINAL: Negative for poor appetite, abdominal pain, heartburn, nausea , vomiting, constipation, or diarrhea. GENITOURINARY: Negative for urgency, frequency, dysuria, nocturia. MUSCULOSKELETAL: Negative for pain, swelling. NEUROLOGIC/PSYCHIATRIC: Negative for anxiety, depression. ALLERGY/IMMUNOLOGIC: Negative for skin rash, bleeding tendency. Please see my HPI for pertinent positives and negatives. All other review of systems reviewed and negative except as mentioned in HPI. PAST MEDICAL HISTORY: Chronic systolic and diastolic heart failure, coronary artery disease with stent placement, chronic kidney disease stage 3, history of polysubstance abuse, COPD, medication noncompliance, hypertension, diabetes type 2, dyslipidemia, history of peripheral vascular disease, history of left AKA, and history of ventricular tachycardia required AICD placement. PAST SURGICAL HISTORY: AICD placement, cardiac catheterization, and left AKA. PAST PSYCHIATRIC HISTORY: Reviewed and negative. SOCIAL HISTORY: The patient is a former drug abuser. He abused cocaine. He still smokes about half pack per day. He denies any alcohol abuse. FAMILY HISTORY: No strong family history of cancer or stroke, but hypertension and heart disease runs among several family. ALLERGY: NKDA CURRENT HOME MEDICATIONS: 1. Aspirin 81 mg p.o. daily. 2. Lipitor 40 mg p.o. at bedtime. 3. Glucotrol 5 mg p.o. b.i.d. 4. Lisinopril 5 mg daily. 5. Potassium chloride 20 mEq p.o. daily. 6. DuoNeb q.6 hourly. 7. Coreg 6.25 mg p.o. b.i.d. 8. Lasix 40 mg p.o. daily. 9. Lantus 5 units subcu at bedtime. 10. Dulera 2 puff inhalation b.i.d. EMERGENCY ROOM COURSE: The patient has received Zosyn, vancomycin, Zofran, and morphine. PHYSICAL EXAMINATION: VITAL SIGNS: Currently, blood pressure 138/71, pulse 84, respiratory rate 16, temperature 97.6, and saturation 96% on room air. Weight 78.9 kg. GENERAL: The patient is currently alert and awake, no obvious acute distress. HEENT: Head; normocephalic and atraumatic. Eyes; pupils are round and reactive to light. Extraocular muscle intact. ENT, oropharynx within normal limits. Moist mucous membranes. No oral lesion. No pharyngeal erythema. Poor dentition. NECK: Elevated JVD. No thyromegaly. No carotid bruit. LUNGS: Coarse breath sounds noted, but no rales. No accessory muscles of respiration in use. CARDIAC: S1 and S2 regular. Systolic murmur present parasternally. No gallop. No rub. ABDOMEN: Soft. Bowel sounds present. Nontender. Nondistended. No organomegaly. No mass. No suprapubic tenderness. BACK: Unremarkable. No CVA tenderness. EXTREMITIES: Upper extremity, passive movement of all joints are normal. Lower extremities; left AKA site has a pinpoint opening, which is draining purulent material. The patient has increased swelling of the left AKA stump. Right lower extremity within normal limit. The patient does have some swelling without any induration or fluctuance of left AKA site. NEUROLOGIC: Nonfocal examination. PSYCHIATRIC: Normal affect. SIGNIFICANT LABORATORY DATA: CT lower extremity showing a peripherally enhancing abscess with decreased intramuscular extension, collection does contain gas with skin sinus tract and consistent with osteomyelitis, occlusion of the femoral artery with poor muscular enhancement. CBC; WBC 6.5, hemoglobin 8.9, and platelet 140. ESR 39. CRP 1.02. BMP; sodium 135, potassium 4.5, chloride 105, carbon dioxide 24, BUN 23, creatinine 1.69, glucose 103, and calcium 9.0. LFT; AST 13, ALT less than 7, alkaline phosphatase 115, and albumin 3.6. Telemonitor in the emergency room showing a sinus rhythm. ASSESSMENT AND PLAN: 1. Abscess and osteomyelitis of the left above knee amputation site. We will consult Dr. Rivera for his opinion and if he agrees, then the patient may need surgical evaluation. At that point, Dr. Khan will be consulted. The patient will be given broad-spectrum antibiotic therapy with vancomycin and Zosyn. The patient prefers conservative therapy rather than surgery at this point. His pain will be controlled with morphine p.r.n. basis. He will need longer term antibiotic therapy. Chances of feeling of osteomyelitis are less given his severe peripheral vascular disease. In that case, the patient may end up with surgery. With surgery concern is healing process, because of vascular insufficiency. 2. Chronic systolic and diastolic heart failure with end-stage cardiomyopathy. The patient is currently euvolemic. We will continue with Lasix 40 mg IV b.i.d. while in the hospital to prevent fluid overload and we will also continue Coreg 6.25 mg p.o. b.i.d., lisinopril 5 mg p.o. daily. Fluid restriction 1500 mL per day. 3. Dyslipidemia. We will continue Lipitor 40 mg p.o. at bedtime. 4. Hypertension. We will continue lisinopril 5 mg daily and Coreg 6.25 mg p.o. b.i.d. 5. Chronic obstructive pulmonary disease. We will continue DuoNeb q.6 hourly and Dulera 2 puff inhalation b.i.d. currently without any exacerbation. 6. Diabetes type 2. We will continue Lantus 5 units subcu daily and insulin as per sliding scale per protocol. We will also continue Glucotrol 5 mg p.o. b.i.d. 7. Chronic kidney disease, stage 3. We will monitor renal function. 8. Anemia of chronic disease. 9. Medication noncompliance. 10. Deep venous thrombosis prophylaxis. Lovenox 40 mg subcu daily. 11. Gastrointestinal prophylaxis. Pepcid 20 mg p.o. b.i.d. 12. Code status. The patient is full code. While in hospital, we will continue empiric antibiotic therapy with vancomycin and Zosyn and further antibiotic based on clinical course and ID recommendation. Job ID: [id number] [facility] HOSPITALCaryl
[2019-06-27] MEDS ORDERED: traMADol HCl 50 MG TAB PO PRN (22:10)
[2019-06-28] MEDS: Piperacillin/Tazobactam 3.375 GM in Sodium Chloride 0.9% 100 ML IVPB SCH ×5 (01:14→21:16)
[2019-06-28] MEDS: HYDROcodone/Acetaminophen 5/325 mg Tablet PO PRN ×3 (01:17→13:47)
[2019-06-28] MEDS: Furosemide 40 MG/4 ML VIAL SLOW IVP SCH ×2 (05:52→14:33)
[2019-06-28 06:24] LABS: Hemoglobin 9.2 g/dL (14.0-18.0); Lymphocytes 19 % (21-51); MDiff Complete? YES; Mean Corpuscular HGB CONC 30.5 g/dL (32.0-36.0); Mean Corpuscular Hemoglobin 26.9 pg (27.0-31.0); Mean Corpuscular Volume 88.1 fL (78.0-98.0); Mean Platelet Volume 10.6 fL (7.4-10.4); Monocytes 19 % (0-10); Neutrophil 62 % (42-75); Platelet Count 137 thou/uL (130-400); Platelet Morphology Comment Appears Adequate; RBC Distribution Width 20.4 % (11.5-14.5); Red Blood Cell (RBC) Count 3.41 mill/uL (4.70-6.10); White Blood Cell (WBC) Count 7.2 thou/uL (4.8-10.8)
[2019-06-28 06:28] LABS: Anion Gap 13 mmol/L (10-20); BUN (Urea Nitrogen) 23 mg/dL (8.4-25.7); Calc. Creatinine Clearance 52 mL/min (70-130); Calcium 8.8 mg/dL (7.8-10.44); Carbon Dioxide 23 mmol/L (22-29); Chloride 104 mmol/L (98-107); Estimated GFR-MDRD 51; Potassium 4.6 mmol/L (3.5-5.1); Sodium 135 mmol/L (136-145)
[2019-06-28 06:31] LABS: Glucose 54 mg/dL (70-105)
[2019-06-28] MEDS: Mometasone/Formoterol 120 PUFF INHALER INH SCH ×2 (07:30→18:44)
[2019-06-28] MEDS: Carvedilol 6.25 MG TAB PO SCH ×2 (08:05→21:01)
[2019-06-28] MEDS: Aspirin 81 mg Enteric Coated Tablet PO SCH (08:06)
[2019-06-28] MEDS: Lisinopril 5 MG TAB PO SCH ×2 (08:06→08:07)
[2019-06-28] MEDS: Potassium Chloride 20 MEQ TAB PO SCH (08:06)
[2019-06-28] MEDS: Enoxaparin Sodium 30 MG/0.3 ML SYRINGE SC SCH (08:06)
[2019-06-28] MEDS: Saccharomyces boulardii 250 MG CAP PO SCH (08:06)
[2019-06-28] MEDS: Famotidine 20 MG TAB PO SCH ×2 (08:06→21:01)
[2019-06-28] MEDS: glipiZIDE 5 MG TAB PO SCH ×2 (08:06→16:38)
[2019-06-28] MEDS: Vancomycin HCl 1.5 GM in Sodium Chloride 0.9% 250 ML 300 ML IVPB SCH (09:15)
[2019-06-28 15:00] VITALS: BMI 25.6
[2019-06-28] MEDS ORDERED: Lidocaine 1% (PF) 30 ML VIAL ONE (15:04)
--- NOTE | 2019-06-28 16:50 | CON ---
DATE OF CONSULTATION: 06/28/2019 REASON FOR CONSULTATION: Left AKA stump infection. HISTORY OF PRESENT ILLNESS: A 58-year-old with history of ischemic cardiomyopathy EF 15%, AICD in place, type 2 diabetes, and peripheral vascular disease with recent left AKA, who has developed a chronic draining sinus at the tip of the left AKA associated with pain. He also has pain in the right foot first MPJ skin site. After the amputation, he had some bleeding from the stump. On arrival, temperature 98.7, pulse 89, and blood pressure 115/72. There is an ulcerated area on the lateral aspect of the AKA stump. White cell count is 33,000, hemoglobin 9.5, platelets 183 with 17% bands. Creatinine 2.85. The patient currently denies headaches. His vision is poor and chronically some cough. No dyspnea. No chest pain. No abdominal pain. Voiding without difficulty. No diarrhea. No bleeding. Medical history of ischemic cardiomyopathy, AICD, renal insufficiency stage 4, COPD, cocaine use and chronic smoking. PAST SURGICAL HISTORY: Also includes left AKA. PAST MEDICAL HISTORY: Includes type 2 diabetes, COPD, and hypertension. FAMILY HISTORY: Hypertension and coronary artery disease. SOCIAL HISTORY: Lives in [place]. Daily smoker. Still active cocaine use. ALLERGIES: NONE. MEDICATIONS: 1. DuoNeb. 2. Ecotrin. 3. Lipitor. 4. Dulcolax. 5. Tums. 6. Coreg. 7. Lovenox. 8. Pepcid. 9. Lasix. 10. Glucagon. 11. Insulin. 12. Humalog. 13. Imodium. 14. Ondansetron. 15. Zosyn. 16. Vancomycin. PHYSICAL EXAMINATION: VITAL SIGNS: T-max 98.2, blood pressure 112/75, pulse 66, and O2 saturation 99 % on room air. SKIN: Shows swelling with 2 areas of pinhole opening at the tip of the left AKA. A little bit of dark discoloration at the tip as well surrounding those areas. Marked tenderness. Right foot with redness of the skin of the forefoot. Tiny little superficial ulceration, medial aspect of the right hallux of the skin, marked tenderness there. No lymphadenopathy. HEENT: Ocular movements conjugate. Oral cavity with numerous missing teeth, remainder ones with marked decay and gum disease. NECK: Supple. No jugular vein distention. LUNGS: Symmetric air entry. S1 and S2 without murmurs. HEART: Regular rate. ABDOMEN: Soft. Not distended or tender. No ascites. No bladder distention. No genital abnormalities. EXTREMITIES: No knee effusion. On the right side, I could not feel any popliteal or dorsalis pedis pulses. Skin temperature is cold to touch. LABORATORY DATA: White cell count 6.5 and 7.2, hemoglobin 9.2, platelets 137. Sodium 135, creatinine 1.69. Liver profile normal. Albumin 3.6. Previous leg cultures from May with complex and MRSA. Blood cultures with Morganella with a broad susceptibility profile. ASSESSMENT: Peripheral vascular disease with development of inflammatory complications at the left AKA site with evidence of bone involvement and worsening ischemia of the right foot with tenderness. The patient had evidence of very severe arterial disease bilaterally from April this year, and he was evaluated by vascular surgery in April. Severe peripheral vascular disease, felt not to be a candidate for any further vascular workup due to elevated creatinine. DISCUSSION: At this point, the patient would need I and D of the tip of the left AKA site to remove infected bone and then negative pressure dressing and protracted antimicrobial therapy following culture results. The right lower extremity is ischemic and does not look like he is going to be a candidate for any attempt at revascularization, so he is going to end up with an amputation there to eventually. We will order a PICC line placement and consider consultation with Surgery for debridement of the left AKA femur tip. Job ID: [id number] MTDD
--- NOTE | 2019-06-28 19:38 | PDOC.HOSPP ---
- Subjective Encounter Date: 06/28/19 Encounter Time: 19:36 Subjective: Patient seen and examined for Left AKA stump infection. No fever or chills. No new complaints. No overnight events - Objective Vital Signs & Weight: Vital Signs (12 hours) Temp Pulse Resp BP BP BP Pulse Ox 06/28/19 19:23 97.3 F L 71 20 112/73 96 06/28/19 14:30 115/76 06/28/19 12:20 96.4 F L 66 16 112/75 99 06/28/19 08:07 116/75 06/28/19 08:06 98 06/28/19 08:05 116/75 06/28/19 07:47 68 20 116/75 98 Weight Admit Weight 173 lb 6.4 oz Weight 173 lb 6.4 oz I&O: 06/27/19 06/28/19 06/29/19 06:59 06:59 06:59 Intake Total 590 Output Total 1200 Balance -610 Result Diagrams: 06/28/19 05:31 06/28/19 05:31 Additional Labs: Accuchecks 06/28/19 06/28/19 06/28/19 17:03 11:23 04:08 POC Glucose 82 84 69 L Radiology Reviewed by me: Yes (Left LE - reviewed) Hospitalist ROS - Review of Systems Cardiovascular: denies: chest pain, palpitations, orthopnea, paroxysmal noc. dyspnea, edema, light headedness, other Gastrointestinal: denies: nausea, vomitting, abdominal pain, diarrhea, constipation, melena, hematochezia, other - Medication Medications: Active Medications Generic Name Dose Route Start Last Admin Trade Name Marta PRN Reason Stop Dose Admin Hydrocodone Bitart/Acetaminophen 1 tab 06/27/19 21:11 06/28/19 13:47 [place] 5/325 PO 1 tab Q4H PRN Administration Moderate Pain (4-6) Aspirin 81 mg 06/28/19 09:00 06/28/19 08:06 Ecotrin PO 81 mg DAILY TIARA Administration Carvedilol 6.25 mg 06/28/19 09:00 06/28/19 08:05 Coreg PO 6.25 mg BID TIARA Administration Enoxaparin Sodium 30 mg 06/28/19 09:00 06/28/19 08:06 Lovenox SC 30 mg 0900 TIARA Administration Famotidine 20 mg 06/28/19 09:00 06/28/19 08:06 Pepcid PO 20 mg BID TIARA Administration Furosemide 40 mg 06/28/19 06:00 06/28/19 14:33 Lasix SLOW IVP 40 mg 0600,1400 TIARA Administration Glipizide 5 mg 06/28/19 07:30 06/28/19 16:38 Glucotrol PO 5 mg BID-AC TIARA Administration Piperacillin Sod/Tazobactam 100 mls @ 200 mls/hr 06/28/19 02:00 06/28/19 18: 11 Sod 3.375 gm/ Sodium Chloride IVPB Not Given 0200,0800,1400,2000 TIARA Vancomycin HCl 1.5 gm/ Sodium 300 mls @ 200 mls/hr 06/28/19 09:00 06/28/19 09 :15 Chloride IVPB 300 mls Q24HR@0900 TIARA Administration Lisinopril 5 mg 06/28/19 09:00 06/28/19 08:07 Zestril PO Not Given DAILY TIARA Mometasone Furoate/Formoterol Fumar 2 puff 06/28/19 06:30 06/28/19 18:44 Dulera 200 Mcg/5 Mcg Inhaler INH 2 puff BID-RT TIARA Administration Potassium Chloride 20 meq 06/28/19 09:00 06/28/19 08:06 K-Dur PO 20 meq DAILY TIARA Administration Saccharomyces Boulardii 250 mg 06/28/19 09:00 06/28/19 08:06 Florastor PO 250 mg DAILY TIARA Administration Sodium Chloride 10 ml 06/28/19 09:00 06/28/19 08:09 Flush - Normal Saline IVF 10 ml Q12HR TIARA Administration - Exam General Appearance: NAD Neck: supple Heart: RRR, no gallops Respiratory: CTAB, no wheezes, no ronchi Gastrointestinal: soft, non-tender, normal bowel sounds Extremities: 1+ LE edema (RLE, stump dressing Left AKA) Hosp A/P (1) Infection of amputation stump of left lower extremity Code(s): T87.44 - INFECTION OF AMPUTATION STUMP, LEFT LOWER EXTREMITY Status: Acute (2) DM type 2 (diabetes mellitus, type 2) Status: Chronic Qualifiers: Diabetes mellitus residential insulin use: with lobsterman use Diabetes mellitus complication status: with kidney complications Diabetes mellitus complication detail: with chronic kidney disease Chronic kidney disease stage : stage 3 (moderate) Qualified Code(s): E11.22 - Type 2 diabetes mellitus with diabetic chronic kidney disease; N18.3 - Chronic kidney disease, stage 3 ( moderate); Z79.4 - lobsterman (current) use of insulin (3) Hyperlipidemia Code(s): E78.5 - HYPERLIPIDEMIA, UNSPECIFIED Status: Chronic Qualifiers: Hyperlipidemia type: unspecified Qualified Code(s): E78.5 - Hyperlipidemia , unspecified (4) Hypertension Code(s): I10 - ESSENTIAL (PRIMARY) HYPERTENSION Status: Chronic (5) Hypoglycemia Code(s): E16.2 - HYPOGLYCEMIA, UNSPECIFIED Status: Acute (6) PVD (peripheral vascular disease) Code(s): I73.9 - PERIPHERAL VASCULAR DISEASE, UNSPECIFIED Status: Chronic (7) Chronic combined systolic and diastolic heart failure Code(s): I50.42 - CHRONIC COMBINED SYSTOLIC AND DIASTOLIC HRT FAIL Status: Chronic - Plan Cont IV Vancomycin and Zosyn PICC line recommended by Dr Rivera - Patient refusing AM labs Cont other meds as below Hold Lantus due to hypoglycemia Cont sliding scale Resume home dose of Lasix
[2019-06-28] MEDS ORDERED: Insulin Glargine 5 UNITS in Pre-Filled Syringe 1 EACH SC SCH (21:00)
[2019-06-28] MEDS: Atorvastatin Calcium 40 MG TAB PO SCH (21:01)
[2019-06-29] MEDS: HYDROcodone/Acetaminophen 5/325 mg Tablet PO PRN ×3 (01:11→21:14)
[2019-06-29] MEDS: Piperacillin/Tazobactam 3.375 GM in Sodium Chloride 0.9% 100 ML IVPB SCH ×4 (03:00→21:13)
[2019-06-29 06:08] LABS: #Eosinphils 0.2 thou/uL (0.0-0.7); #Lymphocytes 0.9 thou/uL (1.20-3.40); #Neutrophils 4.7 thou/uL (1.40-6.50); %Basophils 0.1 % (0.0-1.0); %Eosinophils 2.5 % (0.0-10.0); %Lymphocytes 13.5 % (21.0-51.0); %Monocytes 14.6 % (0.0-10.0); %Neutrophils 69.3 % (42.0-75.0); Hemoglobin 9.2 g/dL (14.0-18.0); Mean Corpuscular HGB CONC 30.9 g/dL (32.0-36.0); Mean Corpuscular Hemoglobin 27.4 pg (27.0-31.0); Mean Corpuscular Volume 88.5 fL (78.0-98.0); Mean Platelet Volume 10.6 fL (7.4-10.4); Platelet Count 133 thou/uL (130-400); RBC Distribution Width 20.3 % (11.5-14.5); Red Blood Cell (RBC) Count 3.34 mill/uL (4.70-6.10); White Blood Cell (WBC) Count 6.7 thou/uL (4.8-10.8)
[2019-06-29 06:30] LABS: Anion Gap 15 mmol/L (10-20); BUN (Urea Nitrogen) 24 mg/dL (8.4-25.7); Calc. Creatinine Clearance 49 mL/min (70-130); Calcium 8.7 mg/dL (7.8-10.44); Carbon Dioxide 21 mmol/L (22-29); Chloride 105 mmol/L (98-107); Estimated GFR-MDRD 47; Glucose 92 mg/dL (70-105); Magnesium 2.4 mg/dL (1.6-2.6); Potassium 4.6 mmol/L (3.5-5.1); Sodium 136 mmol/L (136-145)
[2019-06-29] MEDS: Mometasone/Formoterol 120 PUFF INHALER INH SCH ×2 (07:13→18:53)
[2019-06-29] MEDS: Potassium Chloride 20 MEQ TAB PO SCH (08:28)
[2019-06-29] MEDS: Aspirin 81 mg Enteric Coated Tablet PO SCH (08:28)
[2019-06-29] MEDS: Furosemide 40 MG TAB PO SCH ×2 (08:28→13:44)
[2019-06-29] MEDS: Carvedilol 6.25 MG TAB PO SCH ×2 (08:28→21:14)
[2019-06-29] MEDS: Famotidine 20 MG TAB PO SCH ×2 (08:28→21:14)
[2019-06-29] MEDS: glipiZIDE 5 MG TAB PO SCH (08:28)
[2019-06-29] MEDS: Enoxaparin Sodium 30 MG/0.3 ML SYRINGE SC SCH (08:29)
[2019-06-29] MEDS: Lisinopril 5 MG TAB PO SCH (08:29)
[2019-06-29] MEDS: Saccharomyces boulardii 250 MG CAP PO SCH (08:29)
[2019-06-29] MEDS: Vancomycin HCl 1.5 GM in Sodium Chloride 0.9% 250 ML 300 ML IVPB SCH (09:37)
[2019-06-29] MEDS ORDERED: Lidocaine 1% (PF) 30 ML VIAL ONE (13:43)
--- NOTE | 2019-06-29 18:23 | PDOC.OP ---
Operative Note - Operative Note Operative Note: Patient with infected hematoma and possible osteomyelitis of the femur status post left AKA. I have discussed surgical options with the patient on multiple occasions and he adamantly refuses any further surgery, but he is willing to undergo incision and drainage at the bedside to allow packing of the wound. The left above knee amputation site was prepped with Betadine and local anesthesia infused to the pinpoint drainage hole in the central wound. An incision was made into the hematoma cavity which was irrigated, and then a VAC dressing placed by the wound care team. Patient tolerated the procedure well. There were no complications. There were no specimens.
[2019-06-29] MEDS: Atorvastatin Calcium 40 MG TAB PO SCH (21:13)
[2019-06-29] MEDS: Morphine 2 MG/ML SYRINGE SLOW IVP PRN (22:27)
[2019-06-30] MEDS: Piperacillin/Tazobactam 3.375 GM in Sodium Chloride 0.9% 100 ML IVPB SCH ×4 (02:24→19:35)
[2019-06-30] MEDS: Morphine 2 MG/ML SYRINGE SLOW IVP PRN ×2 (02:30→19:35)
[2019-06-30] MEDS: Mometasone/Formoterol 120 PUFF INHALER INH SCH ×2 (06:27→18:46)
[2019-06-30 08:43] LABS: Vancomycin, Trough 20.1 ug/mL
[2019-06-30] MEDS: glipiZIDE 5 MG TAB PO SCH (09:04)
[2019-06-30] MEDS: Aspirin 81 mg Enteric Coated Tablet PO SCH (09:05)
[2019-06-30] MEDS: Lisinopril 5 MG TAB PO SCH (09:05)
[2019-06-30] MEDS: Famotidine 20 MG TAB PO SCH ×2 (09:06→19:35)
[2019-06-30] MEDS: Furosemide 40 MG TAB PO SCH ×2 (09:06→13:17)
[2019-06-30] MEDS: Carvedilol 6.25 MG TAB PO SCH ×2 (09:06→19:35)
[2019-06-30] MEDS: Saccharomyces boulardii 250 MG CAP PO SCH (09:06)
[2019-06-30] MEDS: Potassium Chloride 20 MEQ TAB PO SCH (09:06)
[2019-06-30] MEDS: Enoxaparin Sodium 40 MG/0.4 ML SYRINGE SC SCH (09:06)
[2019-06-30] MEDS: Vancomycin HCl 1 GM in Premix Bag 1 BAG IVPB SCH (11:25)
[2019-06-30] MEDS: HYDROcodone/Acetaminophen 5/325 mg Tablet PO PRN (11:37)
[2019-06-30] MEDS: Vancomycin HCl 1.5 GM in Sodium Chloride 0.9% 250 ML 300 ML IVPB SCH (11:41)
--- NOTE | 2019-06-30 17:09 | PRG ---
DATE OF SERVICE: 06/30/2019 SUBJECTIVE: Mr. Irving is pushing himself around in his wheelchair, minor pain at the left AKA amputation site. Dr. Khan did limited debridement at bedside because the patient declined any other more complete intervention. Denies any respiratory symptoms. Having some loose stools. OBJECTIVE: VITAL SIGNS: His temperature max is 98. Other vital signs are normal. GENERAL: He appears in no distress. LUNGS: Clear. HEART: S1 and S2, regular rate. ABDOMEN: Soft. EXTREMITIES: Left AKA stump with negative pressure dressing. LABORATORY DATA: White cell count 6.7, hemoglobin 9.2, platelets 133 with 69% neutrophils. Creatinine 1.74, which is stable. Microbiology, no micro is available at this point in time. ASSESSMENT AND DISCUSSION: Peripheral vascular disease and inflammatory complications, left above-knee amputation site, evidence of bone involvement. There is also worsening ischemia of the right foot with some tenderness. He is not eligible for revascularization at this point in time. The patient has had limited debridement. The patient has declined a peripherally inserted central catheter line. We will recommend switching him to oral quinolone and doxycycline for discharge planning. The dose of quinolone will be 500 twice daily of Cipro and doxycycline 100 mg twice daily. The duration of therapy would be protracted at least 42 days. Prognosis is poor in view of the inadequacy of the treatment, both in terms of the surgical as well as the medical treatment due to his own. The patient is on refusal to undergo the proper interventions. This will increase the risk of recrudescence of the process after discharge. Job ID: [id number]
[2019-06-30] MEDS: HumaLOG 300 UNITS/3 ML VIAL SC PRN (17:34)
[2019-06-30] MEDS ORDERED: Methyl Salicylate/Menthol 85 GM TUBE TOP PRN (18:26)
[2019-06-30] MEDS: Atorvastatin Calcium 40 MG TAB PO SCH (19:35)
[2019-07-01] MEDS: Piperacillin/Tazobactam 3.375 GM in Sodium Chloride 0.9% 100 ML IVPB SCH ×4 (01:59→20:22)
[2019-07-01] MEDS: Morphine 2 MG/ML SYRINGE SLOW IVP PRN ×2 (06:40→23:56)
[2019-07-01] MEDS: Mometasone/Formoterol 120 PUFF INHALER INH SCH ×2 (06:58→19:03)
[2019-07-01] MEDS: Aspirin 81 mg Enteric Coated Tablet PO SCH (08:11)
[2019-07-01] MEDS: Lisinopril 5 MG TAB PO SCH (08:11)
[2019-07-01] MEDS: Saccharomyces boulardii 250 MG CAP PO SCH (08:11)
[2019-07-01] MEDS: Furosemide 40 MG TAB PO SCH ×2 (08:11→13:36)
[2019-07-01] MEDS: Potassium Chloride 20 MEQ TAB PO SCH (08:11)
[2019-07-01] MEDS: glipiZIDE 5 MG TAB PO SCH (08:11)
[2019-07-01] MEDS: Famotidine 20 MG TAB PO SCH ×2 (08:11→20:20)
[2019-07-01] MEDS: Carvedilol 6.25 MG TAB PO SCH ×2 (08:11→20:20)
[2019-07-01] MEDS: Enoxaparin Sodium 40 MG/0.4 ML SYRINGE SC SCH (08:12)
[2019-07-01] MEDS: HYDROcodone/Acetaminophen 5/325 mg Tablet PO PRN ×2 (08:22→14:39)
[2019-07-01] MEDS: Vancomycin HCl 1 GM in Premix Bag 1 BAG IVPB SCH (10:19)
[2019-07-01] MEDS: HumaLOG 300 UNITS/3 ML VIAL SC PRN (11:03)
--- NOTE | 2019-07-01 16:45 | PDOC.PALCO ---
Palliative Care Consult - Consult Details Requesting Physician: Dr Rowell Reason for Consult: goals of care, assistance with communication prognosis/ disease Family Members Present: None - Pertinent HPI 58 year old male with cardiomyopathy EF of 15%, amputation of left lower extremity above the knee. with last hospital admission Jun 20 secondary to exacerbation of heart failure. Discharged home. Small wound to left AKA that presented with purulent discharge and increase in pain to 8/10. Presented to er for evaluation of left AKA wound. Abscess to left AKA identified with possible osteomyelitis. Admitted for further treatment. Palliative Care consulted for goals of care and discussion of complex disease management/progression. - Pertinent PMH Combined acute on chronic heart failure, CAD, Diabetes, Chronic kidney disease, COPD, hypertension, PVD, left AKA, ventricular tachycardia with AICD placement - Social History Smoking Status: Current every day smoker Smoking: cigarettes Alcohol Use: none Drug Use History: cocaine Living Situation: with family/parents (Lives with his sister ) - Medications MAR Reviewed: Yes - Allergies Allergies/Adverse Reactions: Allergies Allergy/AdvReac Type Severity Reaction Status Date / Time No Known Allergies Allergy Verified 03/15/19 23:33 - Subjective Sitting on side of bed, complains of pain to left lower extremity. 10 point review otherwise negative. - Objective Vital Signs: Vital Signs - Most Recent Temp Pulse Resp BP Pulse Ox 97.4 F L 64 16 112/59 L 97 07/01/19 15:47 07/01/19 15:47 07/01/19 15:47 07/01/19 15:47 07/01/19 15:47 Palliative Performance Scale: 50 - Physical Exam Constitutional: NAD HEENT: moist MMs, EOMI Cardiovascular: RRR Deviation from normal: Murmur Gastrointestinal: soft, non-tender Deviation from normal: left aka, dressing in place Psychiatric: A&O x 3 Skin: normal turgor - Problem List (1) Palliative care encounter Code(s): Z51.5 - ENCOUNTER FOR PALLIATIVE CARE Current Visit: Yes Status: Acute (2) Infection of amputation stump of left lower extremity Code(s): T87.44 - INFECTION OF AMPUTATION STUMP, LEFT LOWER EXTREMITY Current Visit: Yes Status: Acute (3) Chronic combined systolic and diastolic heart failure Code(s): I50.42 - CHRONIC COMBINED SYSTOLIC AND DIASTOLIC HRT FAIL Current Visit: Yes Status: Chronic (4) Acute on chronic systolic ACC/AHA stage C congestive heart failure Code(s): I50.23 - ACUTE ON CHRONIC SYSTOLIC (CONGESTIVE) HEART FAILURE Current Visit: No Status: Acute (5) COPD (chronic obstructive pulmonary disease) Current Visit: No Status: Chronic Qualifiers: Emphysema type: unspecified - Plan/Recommendations Plan: Extensive conversation in relation to chronic disease processes, disease trajectory. In attempting to establish goals of care both short and long patient replied "Im going to keep doing what Im doing". Plan to continue with home health. In relation to resuscitation status "I want everything done". [60] minutes spent on this encounter with >50% of the time in counseling and coordination of care. Thank you for this very appropriate consult.
[2019-07-01] MEDS: Atorvastatin Calcium 40 MG TAB PO SCH (20:20)
[2019-07-02] MEDS: Piperacillin/Tazobactam 3.375 GM in Sodium Chloride 0.9% 100 ML IVPB SCH ×4 (02:34→20:17)
[2019-07-02] MEDS: Morphine 2 MG/ML SYRINGE SLOW IVP PRN ×3 (04:40→19:25)
[2019-07-02 06:24] LABS: Anion Gap 13 mmol/L (10-20); BUN (Urea Nitrogen) 18 mg/dL (8.4-25.7); Calc. Creatinine Clearance 52 mL/min (70-130); Carbon Dioxide 25 mmol/L (22-29); Chloride 103 mmol/L (98-107); Estimated GFR-MDRD 50; Glucose 142 mg/dL (70-105); Potassium 4.5 mmol/L (3.5-5.1); Sodium 136 mmol/L (136-145)
[2019-07-02 06:27] LABS: Mean Corpuscular HGB CONC 31.3 g/dL (32.0-36.0); Mean Corpuscular Hemoglobin 27.9 pg (27.0-31.0); Mean Corpuscular Volume 89.3 fL (78.0-98.0); Mean Platelet Volume 9.7 fL (7.4-10.4); Platelet Count 146 thou/uL (130-400); Red Blood Cell (RBC) Count 3.21 mill/uL (4.70-6.10); White Blood Cell (WBC) Count 7.1 thou/uL (4.8-10.8)
[2019-07-02] MEDS: Mometasone/Formoterol 120 PUFF INHALER INH SCH ×2 (06:36→20:11)
[2019-07-02 06:52] LABS: Anisocytosis SLIGHT = 6-15 cells (100X) (0-5/hpf); Band 1 % (5-11); Eosinophils 2 % (0-10); Lymphocytes 13 % (21-51); MDiff Complete? YES; Monocytes 10 % (0-10); Neutrophil 74 % (42-75); Polychromasia SLIGHT = 2-3 cells (100X) (0-2/hpf); Schistocytes SLIGHT = 2-5 cells (100X) (0-1/hpf)
[2019-07-02] MEDS: Saccharomyces boulardii 250 MG CAP PO SCH (08:32)
[2019-07-02] MEDS: Famotidine 20 MG TAB PO SCH ×2 (08:32→20:18)
[2019-07-02] MEDS: Aspirin 81 mg Enteric Coated Tablet PO SCH (08:32)
[2019-07-02] MEDS: Lisinopril 5 MG TAB PO SCH (08:32)
[2019-07-02] MEDS: Furosemide 40 MG TAB PO SCH ×2 (08:32→14:29)
[2019-07-02] MEDS: glipiZIDE 5 MG TAB PO SCH (08:32)
[2019-07-02] MEDS: Enoxaparin Sodium 40 MG/0.4 ML SYRINGE SC SCH (08:33)
[2019-07-02] MEDS: Potassium Chloride 20 MEQ TAB PO SCH (08:33)
[2019-07-02] MEDS: Carvedilol 6.25 MG TAB PO SCH ×2 (08:33→20:17)
[2019-07-02 09:45] LABS: Vancomycin, Trough 20.2 ug/mL
[2019-07-02] MEDS: Vancomycin HCl 750 MG in Sodium Chloride 0.9% 250 ML 250 ML IVPB SCH (11:04)
[2019-07-02] MEDS: HumaLOG 300 UNITS/3 ML VIAL SC PRN (11:09)
[2019-07-02] MEDS ORDERED: ISOVUE-370 76%-LOCM 1 ML ONE (12:59)
[2019-07-02] MEDS: Atorvastatin Calcium 40 MG TAB PO SCH (20:17)
--- NOTE | 2019-07-02 21:37 | CT ---
CT LEFT UPPER EXTREMITY: 07/02/19 HISTORY: Left upper extremity pain. Concern for abscess in the left forearm with pain, swelling and warmth. FINDINGS/IMPRESSION: There is edema in the subcutaneous fat of the proximal and mid left forearm. The bony structures are intact. No abnormally loculated fluid collection is seen to suggest abscess formation. Findings are likely due to cellulitis. POS: [facility]
[2019-07-03] MEDS: Morphine 2 MG/ML SYRINGE SLOW IVP PRN ×2 (01:51→08:33)
[2019-07-03] MEDS: Piperacillin/Tazobactam 3.375 GM in Sodium Chloride 0.9% 100 ML IVPB SCH ×4 (01:53→20:15)
[2019-07-03] MEDS: HumaLOG 300 UNITS/3 ML VIAL SC PRN ×2 (06:01→12:23)
[2019-07-03] MEDS: Saccharomyces boulardii 250 MG CAP PO SCH (08:22)
[2019-07-03] MEDS: Potassium Chloride 20 MEQ TAB PO SCH (08:22)
[2019-07-03] MEDS: Aspirin 81 mg Enteric Coated Tablet PO SCH (08:22)
[2019-07-03] MEDS: Lisinopril 5 MG TAB PO SCH (08:22)
[2019-07-03] MEDS: Famotidine 20 MG TAB PO SCH ×2 (08:22→20:16)
[2019-07-03] MEDS: Furosemide 40 MG TAB PO SCH ×2 (08:22→14:18)
[2019-07-03] MEDS: glipiZIDE 5 MG TAB PO SCH (08:22)
[2019-07-03] MEDS: Enoxaparin Sodium 40 MG/0.4 ML SYRINGE SC SCH (08:23)
[2019-07-03] MEDS: Carvedilol 6.25 MG TAB PO SCH ×2 (08:23→20:16)
[2019-07-03] MEDS: Vancomycin HCl 750 MG in Sodium Chloride 0.9% 250 ML 250 ML IVPB SCH (10:53)
[2019-07-03] MEDS: Mometasone/Formoterol 120 PUFF INHALER INH SCH ×2 (10:57→18:49)
[2019-07-03] MEDS: traMADol HCl 50 MG TAB PO SCH ×3 (12:21→23:09)
[2019-07-03] MEDS: Atorvastatin Calcium 40 MG TAB PO SCH (20:15)
[2019-07-04] MEDS: Acetaminophen 325 MG TAB PO PRN ×2 (00:02→20:19)
[2019-07-04] MEDS: Piperacillin/Tazobactam 3.375 GM in Sodium Chloride 0.9% 100 ML IVPB SCH ×4 (01:16→20:17)
[2019-07-04] MEDS: traMADol HCl 50 MG TAB PO SCH ×3 (05:31→17:04)
[2019-07-04] MEDS: HumaLOG 300 UNITS/3 ML VIAL SC PRN (05:31)
[2019-07-04] MEDS: Carvedilol 6.25 MG TAB PO SCH ×2 (08:18→20:18)
[2019-07-04] MEDS: Aspirin 81 mg Enteric Coated Tablet PO SCH (08:18)
[2019-07-04] MEDS: Furosemide 40 MG TAB PO SCH ×2 (08:18→13:59)
[2019-07-04] MEDS: glipiZIDE 5 MG TAB PO SCH (08:18)
[2019-07-04] MEDS: Saccharomyces boulardii 250 MG CAP PO SCH (08:18)
[2019-07-04] MEDS: Lisinopril 5 MG TAB PO SCH (08:19)
[2019-07-04] MEDS: Famotidine 20 MG TAB PO SCH ×2 (08:19→20:18)
[2019-07-04] MEDS: Potassium Chloride 20 MEQ TAB PO SCH (08:19)
[2019-07-04] MEDS: Enoxaparin Sodium 40 MG/0.4 ML SYRINGE SC SCH (08:19)
[2019-07-04] MEDS: Mometasone/Formoterol 120 PUFF INHALER INH SCH ×2 (08:21→19:54)
[2019-07-04] MEDS: Vancomycin HCl 750 MG in Sodium Chloride 0.9% 250 ML 250 ML IVPB SCH (10:25)
[2019-07-04] MEDS: Atorvastatin Calcium 40 MG TAB PO SCH (20:18)
[2019-07-05] MEDS: traMADol HCl 50 MG TAB PO SCH ×4 (00:28→17:21)
[2019-07-05] MEDS: Piperacillin/Tazobactam 3.375 GM in Sodium Chloride 0.9% 100 ML IVPB SCH ×4 (01:28→20:37)
[2019-07-05] MEDS: Mometasone/Formoterol 120 PUFF INHALER INH SCH ×2 (07:27→20:52)
[2019-07-05] MEDS: Potassium Chloride 20 MEQ TAB PO SCH (08:04)
[2019-07-05] MEDS: Saccharomyces boulardii 250 MG CAP PO SCH (08:04)
[2019-07-05] MEDS: glipiZIDE 5 MG TAB PO SCH (08:04)
[2019-07-05] MEDS: Carvedilol 6.25 MG TAB PO SCH ×2 (08:04→20:37)
[2019-07-05] MEDS: Aspirin 81 mg Enteric Coated Tablet PO SCH (08:04)
[2019-07-05] MEDS: Furosemide 40 MG TAB PO SCH ×2 (08:05→14:05)
[2019-07-05] MEDS: Famotidine 20 MG TAB PO SCH ×2 (08:05→20:37)
[2019-07-05] MEDS: Lisinopril 5 MG TAB PO SCH (08:05)
[2019-07-05] MEDS: Enoxaparin Sodium 40 MG/0.4 ML SYRINGE SC SCH (08:05)
[2019-07-05] MEDS: Acetaminophen 325 MG TAB PO PRN ×2 (08:19→20:38)
[2019-07-05] MEDS: Vancomycin HCl 750 MG in Sodium Chloride 0.9% 250 ML 250 ML IVPB SCH (09:25)
[2019-07-05] MEDS: HumaLOG 300 UNITS/3 ML VIAL SC PRN (11:34)
[2019-07-05] MEDS: Atorvastatin Calcium 40 MG TAB PO SCH (20:38)
[2019-07-06] MEDS: traMADol HCl 50 MG TAB PO SCH ×3 (00:28→11:24)
[2019-07-06] MEDS: Piperacillin/Tazobactam 3.375 GM in Sodium Chloride 0.9% 100 ML IVPB SCH ×2 (01:45→08:01)
[2019-07-06] MEDS: Mometasone/Formoterol 120 PUFF INHALER INH SCH (07:11)
[2019-07-06] MEDS: Famotidine 20 MG TAB PO SCH (08:02)
[2019-07-06] MEDS: Aspirin 81 mg Enteric Coated Tablet PO SCH (08:02)
[2019-07-06] MEDS: glipiZIDE 5 MG TAB PO SCH (08:02)
[2019-07-06] MEDS: Saccharomyces boulardii 250 MG CAP PO SCH (08:02)
[2019-07-06] MEDS: Enoxaparin Sodium 40 MG/0.4 ML SYRINGE SC SCH (08:03)
[2019-07-06] MEDS: Furosemide 40 MG TAB PO SCH (08:03)
[2019-07-06] MEDS: Potassium Chloride 20 MEQ TAB PO SCH (08:03)
[2019-07-06] MEDS: Carvedilol 6.25 MG TAB PO SCH (08:12)
[2019-07-06] MEDS: Lisinopril 5 MG TAB PO SCH (08:12)
[2019-07-06] MEDS: Vancomycin HCl 750 MG in Sodium Chloride 0.9% 250 ML 250 ML IVPB SCH (11:26)
[2019-07-06 12:04] VITALS: BP 124/78; TEMP 97.5
--- NOTE | 2019-07-07 14:02 | DIS ---
DATE OF ADMISSION: 06/27/2019 DATE OF DISCHARGE: 07/06/2019 ADMITTING DIAGNOSES: 1. Left above-knee amputation site abscess, also osteomyelitis. 2. Chronic systolic and diastolic heart failure 3. Diabetes mellitus 4. Chronic kidney disease, stage stage 3.. 5, cardiomyopathy FINAL DIAGNOSES: 1. Abscess, above-knee amputation site, status post I and D, wound VAC, osteomyelitis of the left stump area, the patient declined surgery. Also declined PICC line for IV antibiotics. 2. chronic systolic and diastolic heart failure , stable. 3. cardiomyopathy 4. diabetes mellitus 5. CKD stage 3 6.Hypertension, controlled. BRIEF SUMMARY OF HOSPITAL COURSE: Mr Irving is admitted because of left stump pain. The patient has pain and swelling at the above-knee amputation site , left side. The patient has severe peripheral vascular disease . He was found to have abscess at the AKA site with evidence of bone involvement. he needed surgical debridement as well as possible removal of the infected bone and IV antibiotic therapy . pt was seen by Dr hannon for surgery. she did I&D of sbcess at bed side. and wound vac placed. pt declined surgery to remove infected bone. Pt was sen by Dr irizarry for infectious disease, who suggested IV antibiotic for few weeks but pt declined PICC line. The patient continued on wound care, IV antibiotics with vancomycin and Zosyn. out pt wound vac has been arranged. He is being discharged home on Coreg 6.25 b.i.d., KCl 20 mEq daily, DuoNeb 3 mL q.4h. p.r.n., p.r.n., Lasix 40 mg bid, Dulera, inhaler, tramadol 50 mg q.6 p.r.n. pain, Lipitor 40 mg at bedtime at bedtime, glipizide 5 mg b.i.d, lisinopril 20 mg bid, Cipro 500 mg b.i.d. for 4 weeks, Doxyxycline 100 mg bid for 4 weeks. Also continue prn medications he will come for followup in 2 weeks. Home health will manage wound vac. Job ID: [id number] [facility]
== END 2019-07-06 14:25 | disposition home or self-care (01) | DRG 565 ==
LOC: ERS 17:01 → T4-B 21:07
PROVIDERS: ADMIT Internal Medicine; ATTEND Internal Medicine
PROC: 3E10X8Z Irrigation of Skin and Mucous Membranes using Irrigating Substance (ICD-10-PCS; principal; 2019-06-29)
DX: T87.44 Infection of amputation stump, left lower extremity (principal); M86.8X6 Other osteomyelitis, lower leg; I50.42 Chronic combined systolic (congestive) and diastolic (congestive) heart failure; L02.416 Cutaneous abscess of left lower limb; I42.9 Cardiomyopathy, unspecified; Y83.9 Surgical procedure, unspecified as the cause of abnormal reaction of the patient, or of later complication, without mention of misadventure at the time of the procedure; Z51.5 Encounter for palliative care; N18.3 Chronic kidney disease, stage 3 (moderate); I73.9 Peripheral vascular disease, unspecified; J44.9 Chronic obstructive pulmonary disease, unspecified; E11.69 Type 2 diabetes mellitus with other specified complication; E11.22 Type 2 diabetes mellitus with diabetic chronic kidney disease; D63.1 Anemia in chronic kidney disease; I25.10 Atherosclerotic heart disease of native coronary artery without angina pectoris; F17.210 Nicotine dependence, cigarettes, uncomplicated; F19.10 Other psychoactive substance abuse, uncomplicated; E11.649 Type 2 diabetes mellitus with hypoglycemia without coma; Z53.29 Procedure and treatment not carried out because of patient's decision for other reasons; Z95.5 Presence of coronary angioplasty implant and graft; Z95.810 Presence of automatic (implantable) cardiac defibrillator; Z79.4 Long term (current) use of insulin; Z91.14 Patient's other noncompliance with medication regimen
CPT/HCPCS: 36415; 36416; 80048; 80053; 80202; 82565; 83735; 85025; 85652; 86140; 96365; 96375; J1650; J1815; J1940; J2001; J2270; J2405; J2543; J3370; J3490; J7050; Q9966

== ENCOUNTER 2019-07-09 17:00 | Emergency (ER) | payer MEDICARE ==
[2019-07-09] MEDS ORDERED: HYDROcodone/Acetaminophen 5/325 mg Tablet ONE ×2 (18:03→18:44)
--- NOTE | 2019-07-09 18:15 | RAD ---
EXAM: 2 views of the left femur HISTORY: Recent yhddw-riw-uwgq amputation. Patient fell off couch while sleeping today COMPARISON: None FINDINGS: There is no evidence of acute fracture or dislocation. The patient has an zmlic-clx-hfmu am putation without significant irregularity of the distal aspect of the bone. No soft tissue swelling is seen. No degenerative changes are seen in the hip. Vascular calcic lesions are seen. IMPRESSION: No evidence of acute osseous abnormality.
== END 2019-07-09 20:25 | disposition home or self-care (01) ==
LOC: ERS 17:00
DX: M79.605 Pain in left leg (principal); I25.10 Atherosclerotic heart disease of native coronary artery without angina pectoris; I25.2 Old myocardial infarction; E11.9 Type 2 diabetes mellitus without complications; E78.5 Hyperlipidemia, unspecified; E78.00 Pure hypercholesterolemia, unspecified; J44.9 Chronic obstructive pulmonary disease, unspecified; F17.210 Nicotine dependence, cigarettes, uncomplicated; Z79.82 Long term (current) use of aspirin; Z79.84 Long term (current) use of oral hypoglycemic drugs; Z79.899 Other long term (current) drug therapy; W18.30XA Fall on same level, unspecified, initial encounter
CPT/HCPCS: 36416

== ENCOUNTER 2019-07-13 09:49 | Outpatient (CLI) | payer MEDICARE ==
[2019-07-13] MEDS ORDERED: Sodium Chloride 0.9% 15 ML NEB ONE (15:00)
--- NOTE | 2019-07-14 02:18 | HP ---
HISTORY OF PRESENT ILLNESS: Mr. Shoaib Irving is a very pleasant 58-year-old gentleman, who [facility] for evaluation of an ulceration of his left rawua-raf-kpth amputation stump in addition to an ulceration of the right medial lower leg. The patient underwent left wxpym-pog-kugs amputation by Dr. Jason Khan on 04/16/2019. In June of this year, the patient underwent incision and drainage at bedside by Dr. Khan for treatment of an infected hematoma of his left qwujt-szp-ylph amputation stump. The patient declined PICC line insertion and the administration of IV antibiotics and is therefore receiving p.o. antibiotics as per Dr. Rivera for possible osteomyelitis. Presently, the patient is receiving negative pressure therapy for his left dsfzv-gcv-xgrk amputation stump wound. PAST MEDICAL HISTORY: 1. Coronary artery disease. 2. Diabetes mellitus. 3. Cardiomyopathy. 4. Hypertension. 5. Chronic kidney disease. 6. Anemia. 7. Atrial flutter, status post ablation. 8. History of syncope. 9. COPD. 10. History of PE. 11. Peripheral vascular disease. 12. Cataracts. 13. Valvular heart disease. PAST SURGICAL HISTORY: 1. AICD placement. 2. I and D of left lower extremity wound in March of 2019. 3. Left amsnc-vez-vrxn amputation by Dr. Jason Khan on 04/16/2019. MEDICATIONS: 1. Coreg. 2. Potassium chloride. 3. Lasix. 4. Tramadol. 5. Aspirin 81 mg. 6. Lipitor. 7. Glucotrol. 8. Zestril. 9. Senna. 10. Tums. 11. Bengay. 12. Ciprofloxacin. 13. Vibramycin. 14. Lantus. ALLERGIES: NO KNOWN DIAGNOSED ALLERGIES. SOCIAL HISTORY: Social history is significant for tobacco use of up to 1-pack of cigarettes per day for 40 years. The patient denies any history of tobacco use. FAMILY HISTORY: Family history is negative for diabetes mellitus or coronary artery disease. PHYSICAL EXAMINATION: VITAL SIGNS: Temperature 97.5, pulse 77, respirations 18, blood pressure 122/73, and Accu-Chek 163. GENERAL: This is a 58-year-old gentleman, sitting on chair in examination room, in no acute distress. HEENT: Normocephalic and atraumatic. NECK: No nuchal rigidity. CHEST: Clear to auscultation. CV: Regular rate and rhythm. ABDOMEN: Soft. EXTREMITIES: An ulceration of the left xesgd-wwy-zbyn amputation stump is present, which measures approximately 0.7 x 1.3 cm. An ulceration of the right medial lower leg is present, which measures approximately 1.1 x 1.8 cm. Granulation tissue is present within the margins of each wound. No purulent drainage is associated with either wound. No erythema of the skin surrounding either wound is present. No maceration of the skin of the periwound of either wound is noted. Edema of the right lower extremity is present on exam today. A dorsalis pedis pulse or posterior tibial pulse is not palpable on the right. ASSESSMENT AND PLAN: 1. Ulceration of left fsmxg-nlo-bwvr amputation stump and of right medial lower leg as described above. Negative pressure therapy for the left eqdth-otp-rfjl amputation stump wound will be continued with dressing changes of the wound VAC 3 times per week after cleansing and irrigation with the assistance of Home Health. For the ulceration of the right medial lower leg, dressing changes of Medihoney followed by Mepilex border are to be performed at the time of wound VAC dressing changes. As stated above, the patient is receiving p.o. antibiotics as per Dr. Iam Rivera of Infectious Diseases. I will see Mr. Irving in 2 weeks. The patient understands and is in agreement with the preceding treatment plan. 2. Coronary artery disease. 3. Diabetes mellitus. The patient's Accu-Chek in clinic today is 163. The patient has been told that for optimal wound healing, his blood glucoses should remain below 150. 4. Cardiomyopathy. 5. Hypertension. 6. Chronic kidney disease. 7. Anemia. 8. Atrial flutter, status post ablation. 9. History of syncope. 10. Chronic obstructive pulmonary disease. 11. History of pulmonary embolism. 12. Peripheral vascular disease. The patient was recently seen in consultation by Dr. Gibson Jimenez. 13. Cataracts. 14. Valvular heart disease. Job ID: [id number]
== END 2019-07-13 09:50 | disposition home or self-care (01) ==
LOC: WCC 09:49
PROVIDERS: ATTEND Family Medicine
DX: T87.89 Other complications of amputation stump (principal); E11.622 Type 2 diabetes mellitus with other skin ulcer; L97.919 Non-pressure chronic ulcer of unspecified part of right lower leg with unspecified severity; I25.10 Atherosclerotic heart disease of native coronary artery without angina pectoris; I42.9 Cardiomyopathy, unspecified; I12.9 Hypertensive chronic kidney disease with stage 1 through stage 4 chronic kidney disease, or unspecified chronic kidney disease; N18.9 Chronic kidney disease, unspecified; E11.22 Type 2 diabetes mellitus with diabetic chronic kidney disease; D63.1 Anemia in chronic kidney disease; I48.92 Unspecified atrial flutter; J44.9 Chronic obstructive pulmonary disease, unspecified; E11.51 Type 2 diabetes mellitus with diabetic peripheral angiopathy without gangrene; E11.36 Type 2 diabetes mellitus with diabetic cataract; I38 Endocarditis, valve unspecified
CPT/HCPCS: A4218

== ENCOUNTER 2019-07-23 16:43 | Inpatient (IN) | payer MEDICARE ==
[2019-07-23] MEDS ORDERED: Nitroglycerin 2% Ointment 1 INCH/1 GM Packet ONE (17:37)
[2019-07-23] MEDS ORDERED: Furosemide 40 MG/4 ML VIAL ONE (17:37)
[2019-07-23 17:55] LABS: #Basophils 0.1 thou/uL (0.0-0.2); #Eosinphils 0.2 thou/uL (0.0-0.7); #Lymphocytes 0.9 thou/uL (1.20-3.40); #Monocytes 0.3 thou/uL (0.11-0.59); #Neutrophils 3.8 thou/uL (1.40-6.50); %Basophils 1.6 % (0.0-1.0); %Eosinophils 3.6 % (0.0-10.0); %Lymphocytes 16.9 % (21.0-51.0); %Monocytes 5.6 % (0.0-10.0); %Neutrophils 72.4 % (42.0-75.0); Hemoglobin 11.2 g/dL (14.0-18.0); Mean Corpuscular Hemoglobin 27.5 pg (27.0-31.0); Mean Corpuscular Volume 85.8 fL (78.0-98.0); Mean Platelet Volume 11.7 fL (7.4-10.4); Platelet Count 145 thou/uL (130-400); RBC Distribution Width 18.5 % (11.5-14.5); Red Blood Cell (RBC) Count 4.06 mill/uL (4.70-6.10); White Blood Cell (WBC) Count 5.3 thou/uL (4.8-10.8)
--- NOTE | 2019-07-23 18:09 | RAD ---
Portable frontal chest radiograph: 07/23/2019 COMPARISON: 06/20/2019 HISTORY: Shortness of breath FINDINGS: Lungs are clear. Stable cardiac enlargement with single lead transvenous AICD. No pneumotho rax, lobar consolidation, or alveolar edema. IMPRESSION: No acute findings.
--- NOTE | 2019-07-23 18:12 | RAD ---
3 views right foot: 07/23/2019 COMPARISON: None HISTORY: Medial foot ulcers, swelling, redness FINDINGS: No fracture or dislocation. 2 subtle foci of lucency overlie the soft tissues medially on t he oblique view, one adjacent to the first interphalangeal joint and one adjacent to the first metatarsal head. These findings may be on the basis of ulcerations. No bone destruction seen. If ther e is clinical concern for osteomyelitis, follow-up MRI suggested. IMPRESSION: Probable soft tissue ulcerations medially with no osseous destruction.
[2019-07-23 18:17] LABS: ALT (SGPT) 12 U/L (8-55); AST (SGOT) 30 U/L (5-34); Albumin 3.5 g/dL (3.5-5.0); Alkaline Phosphatase 114 U/L (40-150); Anion Gap 13 mmol/L (10-20); BUN (Urea Nitrogen) 13 mg/dL (8.4-25.7); Bilirubin, Total 0.9 mg/dL (0.2-1.2); Calc. Creatinine Clearance 0 mL/min (70-130); Calcium 8.3 mg/dL (7.8-10.44); Carbon Dioxide 22 mmol/L (22-29); Chloride 108 mmol/L (98-107); Estimated GFR-MDRD 74; Globulin 3.6 g/dL (2.4-3.5); Glucose 103 mg/dL (70-105); Magnesium 1.6 mg/dL (1.6-2.6); Potassium 3.8 mmol/L (3.5-5.1); Protein, Total 7.1 g/dL (6.0-8.3); Sodium 139 mmol/L (136-145)
[2019-07-23 18:39] LABS: CKMB 1.6 ng/mL (0-6.6); Syphilis Antibody Nonreactive (Nonreactive); Syphilis Antibody Index 0.05 S/CO (<1.00 Non-Reactive)
[2019-07-23] MEDS ORDERED: Piperacillin/Tazobactam 4.5 GM VIAL ONE (19:41)
[2019-07-23] MEDS ORDERED: Vancomycin HCl 1.5 GM in Sodium Chloride 0.9% 250 ML 300 ML IVPB SCH (20:45)
[2019-07-23 21:24] LABS: Troponin I 0.027 ng/mL (< 0.028)
[2019-07-23] MEDS ORDERED: Acetaminophen 325 MG TAB PO PRN (22:11)
[2019-07-23 23:59] LABS: Troponin I 0.035 ng/mL (< 0.028)
[2019-07-24] MEDS ORDERED: Loperamide HCl 2 MG CAP PO PRN (06:47)
[2019-07-24] MEDS ORDERED: Methyl Salicylate/Menthol 85 GM TUBE TOP PRN (06:47)
[2019-07-24] MEDS ORDERED: Senokot S 8.6-50 MG TAB PO PRN (06:47)
[2019-07-24] MEDS ORDERED: Dextrose 5% in Water 1,000 ML IV PRN (06:48)
[2019-07-24] MEDS ORDERED: Dextrose 50% Abboject 50 ML SYRINGE IVP PRN (06:48)
[2019-07-24] MEDS ORDERED: Bisacodyl 10 MG SUPP PR PRN (06:50)
[2019-07-24] MEDS: glipiZIDE 5 MG TAB PO SCH ×2 (08:00→16:26)
[2019-07-24] MEDS: Carvedilol 6.25 MG TAB PO SCH ×2 (08:37→20:45)
[2019-07-24] MEDS: Furosemide 40 MG TAB PO SCH ×2 (08:37→13:22)
[2019-07-24] MEDS: traMADol HCl 50 MG TAB PO PRN ×2 (08:37→21:51)
[2019-07-24] MEDS: Aspirin 81 mg Enteric Coated Tablet PO SCH (08:37)
[2019-07-24] MEDS: HumaLOG 300 UNITS/3 ML VIAL SC PRN ×3 (08:38→17:05)
[2019-07-24] MEDS ORDERED: Doxycycline 100 MG CAP PO SCH (09:00)
[2019-07-24] MEDS ORDERED: Lisinopril 5 MG TAB PO SCH (09:00)
[2019-07-24] MEDS ORDERED: Furosemide 40 MG/4 ML VIAL SLOW IVP SCH (16:00)
[2019-07-24] MEDS ORDERED: Vancomycin HCl 1.25 GM in Sodium Chloride 0.9% 250 ML 250 ML IVPB SCH (16:00)
--- NOTE | 2019-07-24 16:44 | HP ---
CHIEF COMPLAINT: Shortness of breath. HISTORY OF PRESENT ILLNESS: Mr. Irving is a 58-year-old Afro French male with past medical history of severe cardiomyopathy, coronary artery disease, hypertension, COPD, peripheral vascular disease, came because of shortness of breath that developed last night. He woke up last night because of shortness of breath and he feels his fluid medication is not working. He has some discomfort in the left side and some dry cough. No fever, nausea or vomiting. No diaphoresis. Because of worsening of shortness of breath, the patient called the EMS. The patient recently in the hospital with left stump infection with osteomyelitis. He declined surgery as well as IV antibiotic at that time and he was put on p.o. antibiotics. The patient claims he has been taking all his medications. The patient came to the emergency room, where he was evaluated and found to have acute CHF according to the ER physician. The patient received Lasix IV. Also, was found to have right foot swelling, possible infection. He was given Zosyn and vancomycin and admitted for further evaluation and management. PAST MEDICAL HISTORY: 1. Severe cardiomyopathy with decreased EF of 15%. 2. Coronary artery disease. 3. Diabetes mellitus. 4. Hypertension. 5. Chronic kidney disease, stage 3. 6. History of polysubstance abuse. 7. COPD. 8. Diabetes mellitus. 9. Severe peripheral vascular disease. 10. History of ventricular tachycardia. PAST SURGICAL HISTORY: 1. Status post left AKA. 2. Status post AICD placement. CURRENT MEDICATIONS: The patient is on; 1. Tylenol p.r.n. 2. Aspirin 81 mg daily. 3. Atorvastatin 40 mg at bedtime. 4. Dulcolax p.r.n. 5. Tums p.r.n. 6. Coreg 6.25 b.i.d. 7. Cipro 500 b.i.d. 8. Doxycycline 100 mg b.i.d. 9. Lasix 40 mg b.i.d. 10. Glipizide 5 mg b.i.d. 11. Lisinopril 5 mg daily. 12. Imodium p.r.n. 13. Senokot p.r.n. 14. Tramadol p.r.n. ALLERGIES: NKDA. FAMILY HISTORY: Nothing contributory. SOCIAL HISTORY: The patient still smokes about half pack a day and is still continuing. He used to abuse cocaine in the past. REVIEW OF SYSTEMS: CARDIOVASCULAR: He has chest pain and shortness of breath. RESPIRATORY: No fever, cough. GASTROINTESTINAL: No nausea, vomiting, or abdominal pain. CENTRAL NERVOUS SYSTEM: No headache no dizziness. PHYSICAL EXAMINATION: GENERAL: The patient is alert, awake, oriented x3. VITAL SIGNS: Temperature 98, pulse 93, respiratory rate 20, blood pressure 140/90. HEENT: Head is normocephalic, atraumatic. Pupils are equal and reactive. Nasopharynx is pale and dry. Hard and soft palate, no lesions. SKIN: Turgor decreased. NECK: Supple. No JVD. LUNGS: Bilateral air entry with no rales present at both bases. HEART: S1, S2, regular. ABDOMEN: Soft. No distention. No tenderness. Normal bowel sounds. RECTAL: Deferred. CENTRAL NERVOUS SYSTEM: No focal deficit. EXTREMITIES: There is left AKA wound present. Wound VAC was removed. Right foot; there is marked swelling present. There is some erythema and warmness to right foot and he is cool to touch. Peripheral pulses, absent. LABORATORY DATA: CBC shows WBC 5, hemoglobin 11, and hematocrit 34, platelets 145. Metabolic panel; sodium 139, potassium 3.8, chloride 108, CO2 of 18, BUN 10, creatinine 1.2, glucose 103. Troponin I 0.034. BNP was 9149. IMAGING: Chest x-ray shows possible CHF. EKG shows sinus rhythm, no acute ST-T changes seen. ASSESSMENT: 1. Acute on chronic congestive heart failure combined. 2. Chest pain, rule out myocardial infarction. 3. Severe peripheral vascular disease. 4. Possible right foot cellulitis. 5. Severe cardiomyopathy with EF of 15%. 6. History of osteomyelitis, left stump. 7. Diabetes mellitus. 8. Coronary artery disease. 9. COPD. 10. Hypertension. PLAN: 1. Vital signs q.4 hours. 2. Activity as tolerated. 3. Allergies: NKDA. 4. Hep-Lock. 5. Continue home medicines. 6. Accu-Chek before meals and at bedtime, sliding scale mild with regular insulin. 7. Lasix 40 mg IVP q.12 hours. 8. We will also consult Dr. Rivera, consult Cardiology. Continue Cipro and doxycycline. Job ID: [id number]
[2019-07-24] MEDS: Piperacillin/Tazobactam 3.375 GM in Sodium Chloride 0.9% 100 ML IVPB SCH ×2 (16:59→23:24)
[2019-07-24] MEDS: Vancomycin HCl 1.25 GM in Sodium Chloride 0.9% 250 ML 250 ML IVPB SCH (17:41)
[2019-07-24] MEDS ORDERED: Ciprofloxacin 500 MG TAB PO SCH (20:00)
[2019-07-24] MEDS: Atorvastatin Calcium 40 MG TAB PO SCH (20:45)
--- NOTE | 2019-07-24 22:40 | CON ---
DATE OF CONSULTATION: 07/24/2019 INDICATION FOR CONSULTATION: A 58-year-old gentleman with CHF exacerbation. HISTORY OF PRESENT ILLNESS: This very unfortunate gentleman has a severe cardiomyopathy with ejection fraction of about 15%. He has had multiple admissions due to cardiomyopathy and congestive heart failure exacerbation. He has a history of coronary artery disease, hypertension, COPD. He has peripheral vascular disease. He has been noncompliant with medications. He became more short of breath in the last few days and had more edema and presented back to the hospital and was admitted due to his CHF exacerbation. He also has a history of diabetes and chronic kidney disease stage 3, and a history of polysubstance abuse in the past. He also has underlying COPD and unfortunate for this gentleman, he is admitted on frequent occasions since he is unable to breathe at home and has difficulties. He has also had lower extremity ulcerations or sores, most likely due to the continues edema and inflammation. He is admitted at this time and we were seeing him due to CHF exacerbation. He has had some urine output, but certainly has not been adequate due to the amount of edema that he has. His Is and Os show he is only negative at 350 mL after being given IV diuretics. When I have asked him if he has chest pain, he says he hurts all over and he is unable to lie down flat due to his shortness of breath. PAST MEDICAL HISTORY: Significant for cardiomyopathy, hypertension, chronic kidney disease stage 3, COPD, diabetes type 2, history of polysubstance abuse, severe peripheral vascular disease. He is status post a left AKA back in April of this year. He has had a history of ventricular tachycardia. He has had an AICD placed. PAST SURGICAL HISTORY: Except for the AICD, he has had amputation, and AKA on the left. MEDICATIONS: Include; 1. Aspirin. 2. Tylenol. 3. Atorvastatin. 4. Dulcolax. 5. Doxycycline. 6. Cipro. 7. Coreg 6.25 mg b.i.d. 8. Lasix 40 mg b.i.d. 9. Glipizide. 10. Lisinopril. 11. P.r.n. medications. ALLERGIES: NONE. FAMILY HISTORY: Noncontributory. SOCIAL HISTORY: Unfortunately, the patient still continues to smoke. Apparently, at this time, he has not been using any illicit drugs. Alcohol use is minimal. REVIEW OF SYSTEMS: He complains of pain everywhere. He complains of shortness of breath. He has lower extremity edema actually all the way up to the abdominal wall. He has had some diarrhea and says that he has had some dizziness. No syncope or seizures. PHYSICAL EXAMINATION: GENERAL: Reveals an elderly gentleman, who appears to be certainly uncomfortable. VITAL SIGNS: His blood pressure is 131/75. He is afebrile. Heart rate 70s, respiratory rate is 18 and O2 saturation is 97%. HEENT: Shows the head to be normocephalic and atraumatic. Carotid pulses are present. I did not hear any significant bruits at this time. CHEST: Has decreased breath sounds, but I do not hear any rales, rhonchi, or wheezing. CARDIOVASCULAR: At this time, he has a regular rate and rhythm. There were no gross murmurs. Heart sounds are somewhat distant. He has a very soft systolic murmur at the apex. His PMI is displaced to the mid axillary line to the left. ABDOMEN: He has it appears to be ascites. He also has abdominal wall edema. Positive bowel sounds are present. EXTREMITIES: Showed a left AKA. Also, he has had some ulcerations of the right lower extremities with some small punctate type lesions. He has lower extremity edema. I cannot palpate pedal pulses. NEUROLOGIC: He appears to be intact. IMPRESSION: 1. Congestive heart failure exacerbation in the patient with severe cardiomyopathy. We will continue his diuretics. He eventually may need to undergo dialysis due to his renal insufficiency. His creatinine is elevated only minimally at 1.22, has been worse in the past. We will continue diuretics to see whether or not he will diurese. His BNP was significantly elevated at 9,149. His cardiac enzymes were indeterminate. His troponin I was 0.034, and decreased down to 0.027. 2. History of tobacco abuse. He has been encouraged to stop smoking altogether, but unfortunately continues to smoke. 3. Acute renal insufficiency. This has improved since his last admission and seems to be doing quite well, but however the BNP remains significantly elevated due to his congestive heart failure. 4. History of diabetes, is to be dealt with by the primary care service. He is also being followed by Dr. Rivera for his lower extremity infections. Hopefully, he will not lose his other leg. At this time, I would agree with his present management of trying to diurese the patient. He may need to be placed on dobutamine in order to increase the cardiac output to get better diuresis. Further care of the patient will be with Dr. Baig when he visits with the patient tomorrow. Job ID: [id number]
[2019-07-25] MEDS: Acetaminophen/Codeine 30-300mg Tablet PO PRN ×2 (00:23→08:37)
[2019-07-25] MEDS: Vancomycin HCl 1.25 GM in Sodium Chloride 0.9% 250 ML 250 ML IVPB SCH ×2 (05:08→17:44)
[2019-07-25 05:26] LABS: #Basophils 0.1 thou/uL (0.0-0.2); #Lymphocytes 1.1 thou/uL (1.20-3.40); #Monocytes 0.7 thou/uL (0.11-0.59); %Basophils 1.2 % (0.0-1.0); %Eosinophils 0.2 % (0.0-10.0); %Lymphocytes 14.3 % (21.0-51.0); %Monocytes 8.4 % (0.0-10.0); Hemoglobin 11.3 g/dL (14.0-18.0); Mean Corpuscular HGB CONC 31.4 g/dL (32.0-36.0); Mean Corpuscular Hemoglobin 27.5 pg (27.0-31.0); Mean Corpuscular Volume 87.7 fL (78.0-98.0); Mean Platelet Volume 12.2 fL (7.4-10.4); Platelet Count 184 thou/uL (130-400); RBC Distribution Width 18.5 % (11.5-14.5); White Blood Cell (WBC) Count 7.9 thou/uL (4.8-10.8)
[2019-07-25 05:36] LABS: Anion Gap 14 mmol/L (10-20); BUN (Urea Nitrogen) 24 mg/dL (8.4-25.7); Calc. Creatinine Clearance 66 mL/min (70-130); Calcium 8.5 mg/dL (7.8-10.44); Carbon Dioxide 23 mmol/L (22-29); Chloride 104 mmol/L (98-107); Estimated GFR-MDRD 62; Glucose 111 mg/dL (70-105); Potassium 4.3 mmol/L (3.5-5.1); Sodium 137 mmol/L (136-145)
[2019-07-25] MEDS: Furosemide 40 MG/4 ML VIAL SLOW IVP SCH ×2 (06:09→14:37)
[2019-07-25] MEDS: glipiZIDE 5 MG TAB PO SCH ×2 (08:32→17:44)
[2019-07-25] MEDS: Aspirin 81 mg Enteric Coated Tablet PO SCH (08:32)
[2019-07-25] MEDS: Carvedilol 6.25 MG TAB PO SCH ×2 (08:33→20:32)
[2019-07-25] MEDS: Piperacillin/Tazobactam 3.375 GM in Sodium Chloride 0.9% 100 ML IVPB SCH ×3 (08:39→20:31)
[2019-07-25] MEDS: Lisinopril 5 MG TAB PO SCH ×2 (09:30→20:32)
--- NOTE | 2019-07-25 15:01 | PQF ---
ARCELIA ARMANDO VENKAT R MD [id number] [facility]288 [id number] CLINICAL DOCUMENTATION IMPROVEMENT CLARIFICATION FORM: ICD-10 Updated PLEASE DO AN ADDENDUM TO THE PROGRESS NOTE WITH ANY DOCUMENTATION UPDATES OR ADDITIONS AND CARRY THROUGH TO DC SUMMARY. THANK YOU. DATE: 07/25/19 ATTN: Please exercise your independent, professional judgment in responding to the clarification form. Clinical indicators are provided on the bottom of this form for your review. Please check appropriate box(s): [ ] Acute Respiratory Failure: [ ] with Hypoxia[ ] with Hypercapnia [ ] Acute On Chronic Respiratory Failure: [ ] with Hypoxia [ ] with Hypercapnia [ ] Acute Respiratory Failure due to: (etiology) [ ] Chronic Respiratory Failure only [ ] with Hypoxia [ ] with Hypercapnia [ ] Other diagnosis CHF acute on chronic, combined [ ] Unable to determine In addition, please specify: Present on Admission (POA): [ ] Yes [ ] No [ ] Unable to determine For continuity of documentation, please document condition throughout progress notes and discharge summary. Thank You. CLINICAL INDICATORS - SIGNS / SYMPTOMS / LABS 07/23 ED REPORT: PT PRESENTS FOR SOB AND CHEST PAIN, RESP RATE 24, RESPIRATORY ASSESSMENT FINDINGS INCLUDE EFFORT, SHALLOW, TACHYPNEIC, IRREGULAR, OT SATS 92- 98%RA> 94-97%2L/NC 07/24 CONSULT () HPI: HE BECAME MORE SHORT OF BREATH IN THE LAST FEW DAYS AND HAD MORE EDEMA AND PRESENTED BACK TO THE HOSPITAL AND WAS ADMITTED DUE TO HIS CHF EXACERBATION. HE ALSO HAS UNDERLYING COPD AND UNFORTUNATE FOR THIS GENTLEMAN, HE IS ADMITTED ON FREQUENT OCCASIONS SINCE HE IS UNABLE TO BREATHE AT HOME AND HAS DIFFICULTIES. RISK: DX OF CONGESTIVE HEART FAILURE EXACERBATION, HX COPD ([place]/ CONSULT) 07/24 TREATMENTS: SUPPLEMENTAL OXYGEN (07/23-PRESENT) CXR ORDERED (07/23) THANK YOU! [employer] (This form is maintained as a part of the permanent medical record) 2014 [employer]. All Rights Reserved ALYSSA [email or web address] [phone] MTDD
[2019-07-25] MEDS: HumaLOG 300 UNITS/3 ML VIAL SC PRN (18:13)
[2019-07-25] MEDS: Atorvastatin Calcium 40 MG TAB PO SCH (20:32)
[2019-07-25] MEDS: traMADol HCl 50 MG TAB PO PRN (20:33)
[2019-07-26] MEDS: Piperacillin/Tazobactam 3.375 GM in Sodium Chloride 0.9% 100 ML IVPB SCH ×4 (00:30→17:20)
[2019-07-26 03:28] LABS: Vancomycin, Trough 31.2 ug/mL
[2019-07-26] MEDS: Furosemide 40 MG/4 ML VIAL SLOW IVP SCH ×2 (05:50→14:53)
[2019-07-26] MEDS: traMADol HCl 50 MG TAB PO PRN ×2 (08:21→15:06)
[2019-07-26] MEDS: Lisinopril 5 MG TAB PO SCH ×2 (08:22→20:09)
[2019-07-26] MEDS: Aspirin 81 mg Enteric Coated Tablet PO SCH (08:22)
[2019-07-26] MEDS: glipiZIDE 5 MG TAB PO SCH ×2 (08:22→17:19)
[2019-07-26] MEDS: Carvedilol 6.25 MG TAB PO SCH ×2 (08:22→20:09)
[2019-07-26 16:24] LABS: Vancomycin, Random 22.3 ug/mL (See Comment)
--- NOTE | 2019-07-26 16:26 | CON ---
DATE OF CONSULTATION: 07/26/2019 REASON FOR CONSULTATION: Inflammatory changes, ischemic changes, lower extremities. HISTORY OF PRESENT ILLNESS: Mr. Irving is known to me from previous admissions and the last time I saw him was just a few weeks ago in June when he presented with a history of ischemic cardiomyopathy with EF of 15%, AICD, diabetes type 2, and severe peripheral vascular disease with recent left above-knee amputation with chronic draining sinus and osteomyelitis of the tip of the residual bone at the femur. He also had ischemic changes in the right foot and the impression then was inflammatory complications associated with peripheral vascular disease and poor healing of the left AKA site with evidence of bone involvement and severe arterial disease in the right side as well. Not a candidate for any vascular workup due to CKD stage 4 to 5. The patient had a limited debridement with Dr. Khan at the bedside and the patient declined peripherally inserted central catheter and he was switched to oral quinolone and doxycycline for discharge planning with a protracted course of therapy recommended and now he is readmitted as expected with worsening dyspnea and some chest pain and some abdominal tenderness particularly on the right side. The initial findings with BP 140/80, pulse 87, respirations 24, temperature 98.2, O2 saturation 95%. The exam showed cervical adenopathy, mild bilateral inguinal adenopathy, multiple small ulcers in the right foot and calf region with marked tenderness in the right hallux, the left AKA with small ulcer as described below. Initial laboratory results; white cell count 5.3, hemoglobin 11.2, platelets 145 with 72% neutrophils. The creatinine was 1.22, GFR estimated at 74 and liver profile was normal. BNP was 9149. The previous creatinine has ranged from 1.02 up to 1.7. Two sets of blood culture, no growth thus far. Imaging included a foot x-ray with soft tissue ulcerations, but no osseous destruction. Chest x-ray with no acute findings. Currently, Mr. Irving is awake. He is having pain in the right side of his abdomen, which is moderate and pain in the right first toe, which is severe. Denies headaches. No change in visual symptoms, sore throat, odynophagia, or dysphagia. Dyspnea has improved. No chest pain. No diarrhea. No genitourinary symptoms. No neurological symptoms. PAST MEDICAL HISTORY: Includes ischemic cardiomyopathy; AICD; diabetes type 2; peripheral vascular disease, severe; left AKA; COPD; and hypertension. SOCIAL HISTORY: Lives in [place]. Still smoking actively. Still using cocaine intermittently. ALLERGIES: NONE. FAMILY HISTORY: Noncontributory. CURRENT MEDICATIONS: 1. Tylenol. 2. Ecotrin. 3. Lipitor. 4. Dulcolax. 5. Tums. 6. Coreg. 7. Furosemide. 8. Glipizide. 9. Glucagon. 10. Humalog insulin. 11. Zestril. 12. Zosyn. 13. Vancomycin. PHYSICAL EXAMINATION: VITAL SIGNS: Temperature normal, blood pressure 130/80, pulse 70, respirations 18, and O2 saturation 98. GENERAL: Appears in no acute distress. SKIN: Shows a few small ulcerations in the right lower extremity around the foot, calf region, posterior aspect. Those are shallow, but quite tender to touch. The right foot is a bit swollen. The right ray is very tender to palpation. The extremities are cool to touch. The AKA amputation site wound appears much improved compared with previously. The base of the wound has granulation tissue and has a depth of about 2 cm x 3. A little bit of hyperpigmentation around the site. HEENT: Ocular movements conjugate. Numerous missing teeth. Remainder ones with quite a bit of decay. NECK: Supple. No jugular vein distention. LUNGS: Symmetric. Clear breath sounds. HEART: S1 and S2, regular rate. No S3 or S4. ABDOMEN: Soft. Not distended or tender. No ascites. No bladder distention. No back tenderness. EXTREMITIES: Could not feel any popliteal pulses on the right side. No dorsalis pedis. The right lower extremity skin is cool to touch. Has marked tenderness in the distal aspect. He moves extremities equally. His cognitive function appears to be intact. LABORATORY DATA: The followup labs; white cell count 7.9, hemoglobin 11.3, platelets 184. ASSESSMENT: Type 2 diabetes, ischemic cardiomyopathy with low EF and AICD, severe peripheral vascular disease with recent AKA, left side with some AK amputation wound complications, now appears to be improving and now with some chest pain, dyspnea with marked elevation of BNP, probably related to poor adherence to treatments and dietary recommendations. He also has severe peripheral vascular disease with progression of pain in the right foot. DISCUSSION: The patient will likely end up having an AKA on the right side as well. I do not think he would be a candidate for revascularization and the reason for admission was the volume overload dyspnea. He does have some abdominal pain, which could be related to hepatomegaly from congestive changes. An ultrasound may be attempted depending on clinical progress. Previously, the patient's creatinine had prevented the pursuit of revascularization, but it seems to have improved now, and may consider reconsulting vascular surgeon to see if he would reconsider imaging or do an angiogram and see if he is amenable to angioplasty. Job ID: [id number]
[2019-07-26] MEDS ORDERED: Vancomycin HCl 1.25 GM in Sodium Chloride 0.9% 250 ML 250 ML IVPB SCH (17:00)
[2019-07-26] MEDS: Vancomycin HCl 750 MG in Sodium Chloride 0.9% 250 ML 250 ML IVPB SCH (19:27)
[2019-07-26] MEDS: Atorvastatin Calcium 40 MG TAB PO SCH (20:08)
[2019-07-26] MEDS: Acetaminophen/Codeine 30-300mg Tablet PO PRN (20:09)
[2019-07-27] MEDS: Piperacillin/Tazobactam 3.375 GM in Sodium Chloride 0.9% 100 ML IVPB SCH ×4 (00:08→17:11)
[2019-07-27 00:48] LABS: Amphetamine Not Detected (NotDetected); Barbiturates Screen Not Detected (NotDetected); Benzodiazepine Screen Not Detected (NotDetected); Cocaine Metabolite Screen Not Detected (NotDetected); Medtox Control Line Valid? VALID (VALID); Medtox Reader # READER 4; Methadone Not Detected (NotDetected); Methamphetamine Not Detected (NotDetected); Opiate Screen Detected (NotDetected); Oxycodone Screen Not Detected (NotDetected); Phencyclidine (PCP) Not Detected (NotDetected); THC/Cannabinoid Screen Not Detected (NotDetected); Tricyclic Screen Not Detected (NotDetected)
[2019-07-27] MEDS: Acetaminophen/Codeine 30-300mg Tablet PO PRN ×3 (01:59→14:47)
[2019-07-27 05:29] LABS: #Basophils 0.1 thou/uL (0.0-0.2); #Eosinphils 0.1 thou/uL (0.0-0.7); #Lymphocytes 1.1 thou/uL (1.20-3.40); #Monocytes 0.8 thou/uL (0.11-0.59); #Neutrophils 4.3 thou/uL (1.40-6.50); %Basophils 1.7 % (0.0-1.0); %Lymphocytes 16.9 % (21.0-51.0); %Monocytes 12.3 % (0.0-10.0); %Neutrophils 67.2 % (42.0-75.0); Hemoglobin 10.6 g/dL (14.0-18.0); Mean Corpuscular HGB CONC 31.3 g/dL (32.0-36.0); Mean Corpuscular Hemoglobin 27.3 pg (27.0-31.0); Mean Corpuscular Volume 87.1 fL (78.0-98.0); Mean Platelet Volume 11.5 fL (7.4-10.4); Platelet Count 170 thou/uL (130-400); RBC Distribution Width 18.3 % (11.5-14.5); Red Blood Cell (RBC) Count 3.89 mill/uL (4.70-6.10); White Blood Cell (WBC) Count 6.4 thou/uL (4.8-10.8)
[2019-07-27] MEDS: Vancomycin HCl 750 MG in Sodium Chloride 0.9% 250 ML 250 ML IVPB SCH ×2 (06:03→18:01)
[2019-07-27] MEDS: Furosemide 40 MG/4 ML VIAL SLOW IVP SCH ×2 (06:03→14:42)
[2019-07-27 06:21] LABS: Anion Gap 11 mmol/L (10-20); BUN (Urea Nitrogen) 22 mg/dL (8.4-25.7); Calc. Creatinine Clearance 60 mL/min (70-130); Calcium 8.5 mg/dL (7.8-10.44); Carbon Dioxide 26 mmol/L (22-29); Chloride 103 mmol/L (98-107); Estimated GFR-MDRD 57; Glucose 108 mg/dL (70-105); Potassium 3.9 mmol/L (3.5-5.1); Sodium 136 mmol/L (136-145)
[2019-07-27] MEDS: Lisinopril 5 MG TAB PO SCH ×2 (08:38→20:10)
[2019-07-27] MEDS: Aspirin 81 mg Enteric Coated Tablet PO SCH (08:38)
[2019-07-27] MEDS: glipiZIDE 5 MG TAB PO SCH ×2 (08:38→17:11)
--- NOTE | 2019-07-27 09:08 | PQF ---
ARCELIA ARMANDO VENKAT R MD [id number] [facility]288 [id number] CLINICAL DOCUMENTATION IMPROVEMENT CLARIFICATION FORM: ICD-10 Updated PLEASE DO AN ADDENDUM TO THE PROGRESS NOTE WITH ANY DOCUMENTATION UPDATES OR ADDITIONS AND CARRY THROUGH TO DC SUMMARY. THANK YOU. DATE: 07/27/19 ATTN:DR. Arnulfo LORENZANA Please exercise your independent, professional judgment in responding to the clarification form. Clinical indicators are provided on the bottom of this form for your review. Please check appropriate box(s): [ ] Acute Respiratory Failure: [ ] with Hypoxia[ ] with Hypercapnia [ ] Acute On Chronic Respiratory Failure: [ ] with Hypoxia [ ] with Hypercapnia [ ] Acute Respiratory Failure due to: (etiology) [ ] Chronic Respiratory Failure only [ ] with Hypoxia [ ] with Hypercapnia [ y] Other diagnosis acute on chronic CHF,combined. [ ] Unable to determine In addition, please specify: Present on Admission (POA): [ ] Yes [ ] No [ ] Unable to determine For continuity of documentation, please document condition throughout progress notes and discharge summary. Thank You. CLINICAL INDICATORS - SIGNS / SYMPTOMS / LABS 07/23 ED REPORT: PT PRESENTS FOR SOB AND CHEST PAIN, RESP RATE 24, RESPIRATORY ASSESSMENT FINDINGS INCLUDE EFFORT, SHALLOW, TACHYPNEIC, IRREGULAR, OT SATS 92- 98%RA> 94-97%2L/NC 07/24 CONSULT () HPI: HE BECAME MORE SHORT OF BREATH IN THE LAST FEW DAYS AND HAD MORE EDEMA AND PRESENTED BACK TO THE HOSPITAL AND WAS ADMITTED DUE TO HIS CHF EXACERBATION. HE ALSO HAS UNDERLYING COPD AND UNFORTUNATE FOR THIS GENTLEMAN, HE IS ADMITTED ON FREQUENT OCCASIONS SINCE HE IS UNABLE TO BREATHE AT HOME AND HAS DIFFICULTIES. RISK: DX OF CONGESTIVE HEART FAILURE EXACERBATION, HX COPD ([place]/ CONSULT) 07/24 TREATMENTS: SUPPLEMENTAL OXYGEN (07/23-PRESENT) CXR ORDERED (07/23) THANK YOU! [employer]IS (This form is maintained as a part of the permanent medical record) 2014 [employer]. All Rights Reserved [email or web address] [phone] MTDD
[2019-07-27] MEDS: DOBUTamine 500 mg/250 ml 250 ML IVPB SCH (09:57)
[2019-07-27] MEDS ORDERED: DOBUTamine 500 mg/250 ml 250 ML IVPB SCH (10:00)
--- NOTE | 2019-07-27 10:41 | PDOC.GSPN ---
Surgery Progress Note: Obj - Vital signs Vital signs: Vital Signs - Most Recent Temp Pulse Resp BP Pulse Ox 98.7 F 67 18 124/73 96 07/27/19 07:42 07/27/19 07:42 07/27/19 07:42 07/27/19 07:42 07/27/19 07:42 Surgery Progress Note: Results - Labs Result Diagrams: 07/27/19 05:07 07/27/19 05:07 Lab results: Laboratory Results - last 24 hr 07/26/19 07/27/19 07/27/19 00:13 05:07 05:07 WBC 6.4 RBC 3.89 L Hgb 10.6 L Hct 33.9 L MCV 87.1 MCH 27.3 MCHC 31.3 L RDW 18.3 H Plt Count 170 MPV 11.5 H Neutrophils % 67.2 Lymphocytes % 16.9 L Monocytes % 12.3 H Eosinophils % 2.0 Basophils % 1.7 H Neutrophils # 4.3 Lymphocytes # 1.1 L Monocytes # 0.8 H Eosinophils # 0.1 Basophils # 0.1 Sodium 136 Potassium 3.9 Chloride 103 Carbon Dioxide 26 Anion Gap 11 BUN 22 Creatinine 1.52 H Estimated GFR (MDRD) 57 Glucose 108 H POC Glucose Calcium 8.5 Urine Opiates Screen Detected H Ur Oxycodone Screen Not Detected Urine Methadone Screen Not Detected Ur Propoxyphene Screen Not Detected Ur Barbiturates Screen Not Detected Ur Tricyclics Screen Not Detected Ur Phencyclidine Scrn Not Detected Ur Amphetamines Screen Not Detected U Methamphetamines Scrn Not Detected U Benzodiazepines Scrn Not Detected U Cocaine Metab Screen Not Detected U Cannabinoids Screen Not Detected Drug Screen Comment 07/27/19 05:30 WBC RBC Hgb Hct MCV MCH MCHC RDW Plt Count MPV Neutrophils % Lymphocytes % Monocytes % Eosinophils % Basophils % Neutrophils # Lymphocytes # Monocytes # Eosinophils # Basophils # Sodium Potassium Chloride Carbon Dioxide Anion Gap BUN Creatinine Estimated GFR (MDRD) Glucose POC Glucose 137 H Calcium Urine Opiates Screen Ur Oxycodone Screen Urine Methadone Screen Ur Propoxyphene Screen Ur Barbiturates Screen Ur Tricyclics Screen Ur Phencyclidine Scrn Ur Amphetamines Screen U Methamphetamines Scrn U Benzodiazepines Scrn U Cocaine Metab Screen U Cannabinoids Screen Drug Screen Comment
[2019-07-27] MEDS: HYDROcodone/Acetaminophen 5/325 mg Tablet PO PRN (17:58)
[2019-07-27] MEDS ORDERED: predniSONE 20 MG TAB PO SCH (18:00)
--- NOTE | 2019-07-27 18:47 | CON ---
DATE OF CONSULTATION: I was asked to see Mr. Shoaib Irving in regard to his peripheral vascular status. He has been deemed in the past to be non-reconstructible due to multiple etiologies. He is status post left above-knee amputation with a nonhealing stump. He currently has an ischemic right foot, which is also going to eventually need to be amputated, although he is currently declining any surgical intervention. Job ID: [id number]
[2019-07-27] MEDS: Atorvastatin Calcium 40 MG TAB PO SCH (20:10)
[2019-07-28] MEDS: Piperacillin/Tazobactam 3.375 GM in Sodium Chloride 0.9% 100 ML IVPB SCH ×4 (00:10→17:11)
[2019-07-28] MEDS: HYDROcodone/Acetaminophen 5/325 mg Tablet PO PRN ×3 (00:11→20:59)
[2019-07-28] MEDS: Furosemide 40 MG/4 ML VIAL SLOW IVP SCH (06:11)
[2019-07-28 06:59] LABS: #Lymphocytes 0.6 thou/uL (1.20-3.40); #Monocytes 0.1 thou/uL (0.11-0.59); %Basophils 0.2 % (0.0-1.0); %Eosinophils 0.2 % (0.0-10.0); %Lymphocytes 7.4 % (21.0-51.0); %Monocytes 1.9 % (0.0-10.0); %Neutrophils 90.3 % (42.0-75.0); Hemoglobin 11.5 g/dL (14.0-18.0); Mean Corpuscular HGB CONC 32.2 g/dL (32.0-36.0); Mean Corpuscular Hemoglobin 27.3 pg (27.0-31.0); Mean Corpuscular Volume 84.9 fL (78.0-98.0); Platelet Count 196 thou/uL (130-400); RBC Distribution Width 18.1 % (11.5-14.5); Red Blood Cell (RBC) Count 4.21 mill/uL (4.70-6.10); White Blood Cell (WBC) Count 7.7 thou/uL (4.8-10.8)
[2019-07-28] MEDS: Vancomycin HCl 750 MG in Sodium Chloride 0.9% 250 ML 250 ML IVPB SCH (07:01)
[2019-07-28 07:20] LABS: Anion Gap 12 mmol/L (10-20); BUN (Urea Nitrogen) 17 mg/dL (8.4-25.7); Calc. Creatinine Clearance 68 mL/min (70-130); Calcium 8.5 mg/dL (7.8-10.44); Carbon Dioxide 24 mmol/L (22-29); Chloride 103 mmol/L (98-107); Estimated GFR-MDRD 67; Glucose 231 mg/dL (70-105); Sodium 135 mmol/L (136-145); Uric Acid 6.3 mg/dL (3.5-7.2); Vancomycin, Trough 21.6 ug/mL
[2019-07-28] MEDS: DOBUTamine 500 mg/250 ml 250 ML IVPB SCH (07:29)
--- NOTE | 2019-07-28 08:02 | CON ---
DATE OF CONSULTATION: REASON FOR CONSULTATION: Left stump wound care. HISTORY OF PRESENT ILLNESS: Mr. Irving is a 58-year-old man with multiple medical issues including severe cardiomyopathies, peripheral vascular disease, diabetes, hypertension, coronary artery disease, chronic kidney disease, COPD, polysubstance abuse, and history of tachyarrhythmias. He underwent a left cfask-zvu-iozb amputation on 04/16/2019 for left calf infection and severe peripheral vascular disease. He initially healed well, but then developed bloody drainage from the incision centrally. He was found to have a hematoma, which was treated with conservative wound management, but then presented back to the hospital with worsening pain in the stump and evidence of osteomyelitis and internal dehiscence of a muscular closure. At multiple points during his care, we have discussed taking him back to the operating room for debridement and closure at a higher level. The patient did not, however, want to do this, though we open the wound and manage it with a VAC dressing and antibiotics. He came to the hospital this time not because of any concerns about his wound, but because of worsening shortness of breath. He was felt to be in fluid overload and is undergoing diuresis, although this is limited by his chronic renal insufficiency. He denies any problems with his stump and requested removal of the VAC dressing. The remaining wound was quite shallow, so the wound care team removed the VAC per his wishes. PAST MEDICAL HISTORY: As per HPI. PAST SURGICAL HISTORY: AICD and left pinmn-jga-zsyh amputation. OUTPATIENT MEDICATIONS: Include, 1. Tylenol. 2. Aspirin. 3. Atorvastatin. 4. Dulcolax. 5. Tums. 6. Coreg. 7. Ciprofloxacin. 8. Doxycycline. 9. Lasix. 10. Glipizide. 11. Lisinopril. 12. Imodium. 13. Senokot. 14. Tramadol. INPATIENT MEDICATIONS: Include, 1. Tylenol. 2. Tylenol No. 3. 3. Aspirin. 4. Lipitor. 5. Dulcolax. 6. Tums. 7. Dobutamine. 8. Lasix. 9. Glipizide. 10. Sliding scale insulin. 11. Lisinopril. 12. Zosyn. 13. Senokot. 14. Vancomycin. ALLERGIES: HE HAS NO KNOWN DRUG ALLERGIES. REVIEW OF SYSTEMS: Ten-system review of systems is negative except per HPI. The patient states that he has a little bit of swelling on the right side of his abdomen and chronic swelling and pain in his right leg with multiple open sores, which are also chronic. He has some redness in his foot, which he states is unchanged. He denies any recent fevers or chills. PHYSICAL EXAMINATION: VITAL SIGNS: The patient has been afebrile during this admission. Heart rate 67, respirations 18, 96% saturated on room air, and blood pressure 124/73. GENERAL: Reveals a thin, chronically ill-appearing male, in no distress. HEENT: Unremarkable. NECK: Supple without lymphadenopathy. HEART: Regular with a systolic murmur. LUNGS: Clear to auscultation bilaterally. ABDOMEN: Soft, nontender, and nondistended. He does have some edema in the abdominal wall, especially laterally. EXTREMITIES: Left hussa-chk-esod amputation site nontender with no expressible drainage through the central open wound. This is about a centimeter and appears to be clean and granulating. There is no exposed bone. No fluctuance, erythema, or induration. He does have some chronic edema especially laterally. Right leg is very tender and moderately swollen with dependent rubor and multiple open draining wounds. No palpable pulses below the groin. No fluctuance. No lymphangitic streaking. NEUROLOGIC: No focal deficits. PSYCHIATRIC: Alert, oriented, appropriate. LABORATORY DATA: White count is normal at 6.4, hematocrit 33.9, platelets 170,000. Electrolytes are unremarkable. BUN is 22, creatinine1.52. Blood sugars have been 98 to . IMAGING STUDIES: Chest x-ray did not show any infiltrate. Foot x-ray showed soft tissue ulcerations. ASSESSMENT AND PLAN: Severe peripheral vascular disease. His wound on the left stump appears to be healing reasonably well. He refused IV antibiotics for his osteomyelitis and is on oral antibiotics as an outpatient. He states he has been taking these. The wound does not probe down to the area of bone. He does not have any fluctuance, erythema, or induration to suggest an abscess formation. We recommended continuing with wound care as he is currently doing with Promogran and packing three times a week. Management of the osteomyelitis per Dr. Rivera' recommendation. He is at high risk for recurrent or chronic osteomyelitis, especially given his severe peripheral vascular disease. I have discussed right gyysa-ehu-qybk amputation with him all times. If he develops sepsis from the chronic wounds on his right leg, it is the only surgical option, which is reasonable to offer. He would not heal a dlxan-nqk-tptp amputation due to his severe peripheral vascular disease and failure. The patient has repeatedly refused to consider amputation of his right leg and expresses that again today. He also does not want to consider any revision of the left imgju-xxk-fxcn amputation. He understands that recurrent or persistent infection is a possibility and that this could lead to sepsis and even . Job ID: [id number]
[2019-07-28] MEDS: Aspirin 81 mg Enteric Coated Tablet PO SCH (08:03)
[2019-07-28] MEDS: Lisinopril 5 MG TAB PO SCH ×2 (08:03→21:00)
[2019-07-28] MEDS: glipiZIDE 5 MG TAB PO SCH ×2 (08:03→17:11)
[2019-07-28] MEDS: predniSONE 20 MG TAB PO SCH (08:03)
[2019-07-28] MEDS: HumaLOG 300 UNITS/3 ML VIAL SC PRN ×4 (08:04→21:00)
[2019-07-28] MEDS ORDERED: Furosemide 40 MG/4 ML VIAL SLOW IVP SCH (08:29)
[2019-07-28] MEDS ORDERED: Metolazone 5 MG TAB PO SCH (08:30)
[2019-07-28] MEDS ORDERED: Furosemide 100 MG/10 ML VIAL SLOW IVP SCH (08:45)
[2019-07-28] MEDS: Furosemide 100 MG/10 ML VIAL SLOW IVP SCH (13:57)
[2019-07-28 16:04] VITALS: BMI 26.4
--- NOTE | 2019-07-28 16:47 | PDOC.PALCO ---
Palliative Care Consult - Consult Details Requesting Physician: Dr Rowell Reason for Consult: goals of care, assistance with communication prognosis/ disease Family Members Present: none - Pertinent HPI 58 year old male with frequent hospitalizations. After previous hospitalization he was discharged home with home health to care for wound related to left above the knee amputation, patient refused home IV abx, received oral, also refused wound care from home health. Increase in shortness of breath, EMS called and transported to [facility] emergency room. Admitted secondary to worsening CHF and infection to left stump as well as cellulitis to left lower extremity. Palliative care consult for goals of care. - Pertinent PMH Cardiomyopathy, CAD, DM, HTN, CKD III, COPD, Polysubstance abuse, DM II, - Social History Smoking Status: Current every day smoker Alcohol Use: rarely Drug Use History: cocaine, marijuana Living Situation: with family/parents (Lives with sister) - Medications MAR Reviewed: Yes - Allergies Allergies/Adverse Reactions: Allergies Allergy/AdvReac Type Severity Reaction Status Date / Time No Known Allergies Allergy Verified 03/15/19 23:33 - Subjective Complains of mild pain to right lower extremity that is intermittent. Fatigue, weakness. Denies SOB at this time. ROS: 10 point review otherwise negative than above mentioned. - Objective Vital Signs: Vital Signs - Most Recent Temp Pulse Resp BP Pulse Ox 98.1 F 72 16 174/78 H 93 L 07/28/19 15:42 07/28/19 15:42 07/28/19 15:42 07/28/19 15:42 07/28/19 15:42 Palliative Performance Scale: 40 - Physical Exam Constitutional: mild distress HEENT: moist MMs, EOMI Respiratory: unlabored breathing Cardiovascular: irregular Gastrointestinal: soft, non-tender, positive bowel sounds Musculoskeletal: pulses present, edema present Deviation from normal: left aka Neurological: normal sensation Deviation from normal: depressed Deviation from normal: erythema to right lower extremity, alteration in skin integrity - Problem List (1) Blurred vision, bilateral Code(s): H53.8 - OTHER VISUAL DISTURBANCES Current Visit: No Status: Acute (2) Cellulitis and abscess of left leg Code(s): L03.116 - CELLULITIS OF LEFT LOWER LIMB; L02.416 - CUTANEOUS ABSCESS OF LEFT LOWER LIMB Current Visit: No Status: Acute (3) Palliative care encounter Code(s): Z51.5 - ENCOUNTER FOR PALLIATIVE CARE Current Visit: No Status: Acute (4) CHF (congestive heart failure) Code(s): I50.9 - HEART FAILURE, UNSPECIFIED Current Visit: No Status: Chronic Qualifiers: Heart failure type: systolic (5) Noncompliance with medication regimen Code(s): Z91.14 - PATIENT'S OTHER NONCOMPLIANCE WITH MEDICATION REGIMEN Current Visit: No Status: Chronic - Plan/Recommendations Plan:Extensive conversation with Mr Irving. Wishes to remain with full resuscitation measures. Refuses any interventions surgically related to left stump, refuses any amputation to right lower extremity. Refuses home IV abx and will only conceed to oral home medications. Attempted to educated decline related to lower extremity infections. [60] minutes spent on this encounter with >50% of the time in counseling and coordination of care. Thank you for this very appropriate consult.
[2019-07-28] MEDS: Atorvastatin Calcium 40 MG TAB PO SCH (21:00)
[2019-07-28] MEDS: Vancomycin HCl 500 MG in Sodium Chloride 0.9% 100 ML IVPB SCH (22:30)
[2019-07-29] MEDS: Acetaminophen 325 MG TAB PO PRN ×2 (00:05→17:26)
[2019-07-29] MEDS: Piperacillin/Tazobactam 3.375 GM in Sodium Chloride 0.9% 100 ML IVPB SCH ×5 (00:05→23:28)
[2019-07-29] MEDS: HYDROcodone/Acetaminophen 5/325 mg Tablet PO PRN ×3 (03:14→23:27)
[2019-07-29] MEDS: DOBUTamine 500 mg/250 ml 250 ML IVPB SCH (05:15)
[2019-07-29] MEDS: Furosemide 100 MG/10 ML VIAL SLOW IVP SCH ×2 (05:16→14:37)
[2019-07-29] MEDS ORDERED: Sodium Chloride 0.9% 100 ML IVPB SCH (06:45)
[2019-07-29] MEDS ORDERED: Magnesium 2 GM/50 ML 2 GM in Premix Bag 1 BAG IVPB SCH (06:45)
[2019-07-29] MEDS ORDERED: Potassium Chloride 20 MEQ TAB PO SCH (06:45)
[2019-07-29 07:08] LABS: Magnesium 1.8 mg/dL (1.6-2.6); Potassium 3.7 mmol/L (3.5-5.1)
[2019-07-29] MEDS: Aspirin 81 mg Enteric Coated Tablet PO SCH (08:16)
[2019-07-29] MEDS: glipiZIDE 5 MG TAB PO SCH ×2 (08:16→17:19)
[2019-07-29] MEDS: predniSONE 20 MG TAB PO SCH (08:17)
[2019-07-29] MEDS: Lisinopril 5 MG TAB PO SCH (08:18)
[2019-07-29] MEDS: Vancomycin HCl 500 MG in Sodium Chloride 0.9% 100 ML IVPB SCH ×2 (08:18→20:31)
[2019-07-29] MEDS ORDERED: Lisinopril 10 MG TAB PO SCH ×2 (08:30→09:00)
[2019-07-29] MEDS: HumaLOG 300 UNITS/3 ML VIAL SC PRN ×3 (08:38→21:42)
[2019-07-29] MEDS ORDERED: Lisinopril 5 MG TAB PO SCH (10:30)
--- NOTE | 2019-07-29 15:46 | PDOC.PALFU ---
Palliative Care Follow-up Note Attempted to follow up and revisit goals of care/disease trajectory and outcomes without interventions related to invasive or surgical procedures and outpatient IV antibiotics. Patient depressed with flat affect today. Continues to only want care that is non invasive and at discharge oral medications.
[2019-07-29] MEDS: Atorvastatin Calcium 40 MG TAB PO SCH (20:31)
[2019-07-29] MEDS: Lisinopril 10 MG TAB PO SCH (20:31)
[2019-07-30] MEDS: Piperacillin/Tazobactam 3.375 GM in Sodium Chloride 0.9% 100 ML IVPB SCH ×3 (06:09→16:58)
[2019-07-30] MEDS: Furosemide 100 MG/10 ML VIAL SLOW IVP SCH ×2 (06:09→15:32)
[2019-07-30] MEDS: HYDROcodone/Acetaminophen 5/325 mg Tablet PO PRN ×2 (06:26→21:34)
[2019-07-30 08:11] LABS: Vancomycin, Trough 14.7 ug/mL
[2019-07-30] MEDS: Vancomycin HCl 500 MG in Sodium Chloride 0.9% 100 ML IVPB SCH ×2 (08:52→21:21)
[2019-07-30] MEDS: predniSONE 20 MG TAB PO SCH (08:52)
[2019-07-30] MEDS: Aspirin 81 mg Enteric Coated Tablet PO SCH (08:52)
[2019-07-30] MEDS: glipiZIDE 5 MG TAB PO SCH ×2 (08:53→15:32)
[2019-07-30] MEDS: Lisinopril 10 MG TAB PO SCH ×2 (08:53→20:57)
[2019-07-30] MEDS: HumaLOG 300 UNITS/3 ML VIAL SC PRN ×3 (08:53→20:57)
[2019-07-30] MEDS: Acetaminophen 325 MG TAB PO PRN (12:15)
--- NOTE | 2019-07-30 14:11 | PDOC.CPN ---
- Subjective Date: 07/30/19 Time: 14:10 Interval history: No new issues. breathing just slightly better. - Review of Systems General: denies: fever/chills, weight/appetite/sleep changes, night sweats, fatigue Respiratory: reports: shortness of breath. denies: cough, congestion, exercise intolerance Cardiovascular: denies: chest pain, palpitation, edema, paroxysmal nocturnal dyspnea, orthopnea Gastrointestinal: denies: nausea, vomiting, diarrhea, constipation, abd pain, GI bleeding Musculoskeletal: denies: pain, tenderness, stiffness, swelling, arthritis/ arthralgias Neurological: denies: numbness, syncope, seizure, weakness - Objective Allergies/Adverse Reactions: Allergies Allergy/AdvReac Type Severity Reaction Status Date / Time No Known Allergies Allergy Verified 03/15/19 23:33 Visit Medications: Current Medications Acetaminophen (Tylenol) 650 mg PO Q4H PRN PRN Reason: Headache/Fever or Pain Last Admin: 07/30/19 12:15 Dose: 650 mg Hydrocodone Bitart/Acetaminophen ([place] 5/325) 1 tab PO Q6H PRN PRN Reason: Pain Last Admin: 07/30/19 06:26 Dose: 1 tab Aspirin (Ecotrin) 81 mg PO DAILY [facility] Last Admin: 07/30/19 08:52 Dose: 81 mg Atorvastatin Calcium (Lipitor) 40 mg PO HS [facility] Last Admin: 07/29/19 20:31 Dose: 40 mg Bisacodyl (Dulcolax) 10 mg [place] DAILY PRN PRN Reason: Constipation Calcium Carbonate (Tums) 1,000 mg PO Q4H PRN PRN Reason: Heartburn or Indigestion Dextrose/Water (Dextrose 50%) 25 gm IVP PRN PRN PRN Reason: HYPOGLYCEMIA PROTOCOL Furosemide (Lasix) 80 mg SLOW IVP 0600,1400 [facility] Last Admin: 07/30/19 06:09 Dose: 80 mg Glipizide (Glucotrol) 5 mg PO BID-AC [facility] Last Admin: 07/30/19 08:53 Dose: 5 mg Glucagon (Glucagon) 1 mg IM PRN PRN PRN Reason: HYPOGLYCEMIA PROTOCOL Dextrose/Water (D5w) 1,000 mls @ 0 mls/hr IV INF PRN PRN Reason: HYPOGLYCEMIA PROTOCOL Piperacillin Sod/Tazobactam (Sod 3.375 gm/ Sodium Chloride) 100 mls @ 200 mls/ hr IVPB Q6HR [facility] Last Admin: 07/30/19 12:35 Dose: 100 mls Dobutamine HCl/Dextrose (Dobutamine 500 Mg/250 Ml) 250 mls @ 6.086 mls/hr IVPB INF [facility]; Protocol Last Admin: 07/29/19 05:15 Dose: 250 mls Vancomycin HCl 500 mg/ Sodium (Chloride) 100 mls @ 100 mls/hr IVPB 0800,2000 [facility] Last Admin: 07/30/19 08:52 Dose: 100 mls Insulin Human Lispro (Humalog) 0 units SC .MILD SLIDING SCALE PRN; Protocol PRN Reason: MILD SLIDING SCALE Last Admin: 07/30/19 12:14 Dose: 5 unit Insulin Human Lispro (Humalog) 0 units SC .BEDTIME SLIDING SC PRN; Protocol PRN Reason: BEDTIME SLIDING SCALE Last Admin: 07/29/19 21:42 Dose: 5 unit Lisinopril (Zestril) 10 mg PO BID [facility] Last Admin: 07/30/19 08:53 Dose: 10 mg Loperamide HCl (Imodium) 2 mg PO ASDIR PRN PRN Reason: Diarrhea/Loose Stools Menthol/Methyl Salicylate (Muscle Rub Cream (Bengay)) 0 gm TOP Q6H PRN PRN Reason: Muscle Pain Miscellaneous Medication (Pharmacy To Dose) 0 each IVPB PRN PRN PRN Reason: PHARMACY TO DOSE Prednisone (Prednisone) 30 mg PO QAM-WM [facility] Last Admin: 07/30/19 08:52 Dose: 30 mg Senna/Docusate Sodium (Senokot S) 2 tab PO BID PRN PRN Reason: Constipation Vital Signs & Weight: Vital Signs Temp Pulse Resp BP BP BP Pulse Ox 07/30/19 11:22 98.0 F 77 18 144/61 H 77 L 07/30/19 08:53 158/74 H 07/30/19 08:00 97.5 F L 73 18 156/91 H 94 L 07/30/19 04:00 98.5 F 89 18 166/68 H 98 Admit Weight 175 lb 6.4 oz Weight 163 lb 4.8 oz - Physical Exam General: no apparent distress HEENT: mucus membranes moist, normocephaly Neck: supple neck, midline trachea Cardiac: regular rate and rhythm Lungs: clear to auscultation Neuro: grossly intact Abdomen: active bowel sounds, soft, non-tender Skin: clear Musculoskeletal: normal range of motion - Labs Result Diagrams: 07/28/19 06:33 07/29/19 06:38 Troponin/CKMB CK-MB (CK-2) 1.6 ng/mL (0-6.6) 07/23/19 17:36 Troponin I 0.035 ng/mL (< 0.028) H 07/23/19 23:27 - Telemetry Sinus rhythms and dysrhythmias: other (PAC's.) - Assessment/Plan Assessment/Plan: 1. Acute on chronic systolic heart failure. 2. Ischemic CM EF at 10-15% 3. Severe PVD. 4. Right foot cellulitis. PLAN: - Continue dobutamine to improve forward flow. - Continue lasix. - Poor roasterman prognosis. - Will follow.
[2019-07-30] MEDS ORDERED: HumaLOG 300 UNITS/3 ML VIAL SC SCH ×2 (17:45→21:30)
[2019-07-30] MEDS: Atorvastatin Calcium 40 MG TAB PO SCH (20:57)
[2019-07-30] MEDS: Calcium Carbonate 500 MG ChewTAB PO PRN (20:58)
[2019-07-31] MEDS: Nitroglycerin 0.4 MG TAB (25 Tab Bottle) ONE ×3 (00:10→00:21)
[2019-07-31] MEDS: Piperacillin/Tazobactam 3.375 GM in Sodium Chloride 0.9% 100 ML IVPB SCH ×5 (00:14→23:18)
[2019-07-31] MEDS ORDERED: Morphine 2 MG/ML SYRINGE SLOW IVP SCH (00:45)
[2019-07-31] MEDS ORDERED: HumaLOG 300 UNITS/3 ML VIAL SC SCH (01:00)
[2019-07-31 01:44] LABS: ALT (SGPT) 20 U/L (8-55); AST (SGOT) 22 U/L (5-34); Albumin 3.6 g/dL (3.5-5.0); Alkaline Phosphatase 72 U/L (40-110); Anion Gap 14 mmol/L (10-20); BUN (Urea Nitrogen) 24 mg/dL (8.4-25.7); Bilirubin, Total 0.8 mg/dL (0.2-1.2); Calc. Creatinine Clearance 56 mL/min (70-130); Calcium 9.6 mg/dL (7.8-10.44); Carbon Dioxide 30 mmol/L (22-29); Chloride 94 mmol/L (98-107); Estimated GFR-MDRD 59; Globulin 3.7 g/dL (2.4-3.5); Glucose 306 mg/dL (70-105); Potassium 3.5 mmol/L (3.5-5.1); Protein, Total 7.3 g/dL (6.0-8.3); Sodium 134 mmol/L (136-145)
[2019-07-31 02:11] LABS: Magnesium 1.9 mg/dL (1.6-2.6)
[2019-07-31] MEDS: HYDROcodone/Acetaminophen 5/325 mg Tablet PO PRN ×2 (06:56→18:39)
[2019-07-31] MEDS: Furosemide 100 MG/10 ML VIAL SLOW IVP SCH ×2 (06:56→14:12)
[2019-07-31] MEDS: predniSONE 20 MG TAB PO SCH (08:13)
[2019-07-31] MEDS: Aspirin 81 mg Enteric Coated Tablet PO SCH (08:14)
[2019-07-31] MEDS: Vancomycin HCl 500 MG in Sodium Chloride 0.9% 100 ML IVPB SCH ×2 (08:14→21:16)
[2019-07-31] MEDS: glipiZIDE 5 MG TAB PO SCH ×2 (08:14→17:29)
[2019-07-31] MEDS: Lisinopril 10 MG TAB PO SCH ×2 (08:14→21:16)
[2019-07-31] MEDS: HumaLOG 300 UNITS/3 ML VIAL SC PRN ×3 (11:15→21:22)
[2019-07-31 18:17] LABS: Bilirubin Negative (Negative); Blood, Urine Negative (Negative); Clarity Clear (Clear); Glucose, Urine (Dipstick) >=1000 mg/dL (Negative); Leukocyte Negative Leu/uL (Negative); Nitrite Negative (Negative); Protein, Urine (Dipstick) Negative (Neg-Trace); Urobilinogen Normal mg/dL (Less than 2)
[2019-07-31 18:18] LABS: Urine Culture Reflex No No
[2019-07-31] MEDS: Nitroglycerin 0.4 MG TAB (25 Tab Bottle) SL PRN ×3 (19:03→19:13)
--- NOTE | 2019-07-31 19:16 | PDOC.CPN ---
- Subjective Date: 07/31/19 Time: 19:15 Interval history: No new issues. Had chest pain last night responded to morphine. - Review of Systems General: denies: fever/chills, weight/appetite/sleep changes, night sweats, fatigue Respiratory: denies: cough, congestion, shortness of breath, exercise intolerance Cardiovascular: reports: chest pain. denies: palpitation, edema, paroxysmal nocturnal dyspnea, orthopnea Gastrointestinal: denies: nausea, vomiting, diarrhea, constipation, abd pain, GI bleeding Musculoskeletal: denies: pain, tenderness, stiffness, swelling, arthritis/ arthralgias Neurological: denies: numbness, syncope, seizure, weakness - Objective Allergies/Adverse Reactions: Allergies Allergy/AdvReac Type Severity Reaction Status Date / Time No Known Allergies Allergy Verified 03/15/19 23:33 Visit Medications: Current Medications Acetaminophen (Tylenol) 650 mg PO Q4H PRN PRN Reason: Headache/Fever or Pain Last Admin: 07/30/19 12:15 Dose: 650 mg Hydrocodone Bitart/Acetaminophen ([place] 5/325) 1 tab PO Q6H PRN PRN Reason: Pain Last Admin: 07/31/19 18:39 Dose: 1 tab Aspirin (Ecotrin) 81 mg PO DAILY [facility] Last Admin: 07/31/19 08:14 Dose: 81 mg Atorvastatin Calcium (Lipitor) 40 mg PO HS [facility] Last Admin: 07/30/19 20:57 Dose: 40 mg Bisacodyl (Dulcolax) 10 mg [place] DAILY PRN PRN Reason: Constipation Calcium Carbonate (Tums) 1,000 mg PO Q4H PRN PRN Reason: Heartburn or Indigestion Last Admin: 07/30/19 20:58 Dose: 1,000 mg Dextrose/Water (Dextrose 50%) 25 gm IVP PRN PRN PRN Reason: HYPOGLYCEMIA PROTOCOL Furosemide (Lasix) 80 mg SLOW IVP 0600,1400 [facility] Last Admin: 07/31/19 14:12 Dose: 80 mg Glipizide (Glucotrol) 5 mg PO BID-AC [facility] Last Admin: 07/31/19 17:29 Dose: 5 mg Glucagon (Glucagon) 1 mg IM PRN PRN PRN Reason: HYPOGLYCEMIA PROTOCOL Dextrose/Water (D5w) 1,000 mls @ 0 mls/hr IV INF PRN PRN Reason: HYPOGLYCEMIA PROTOCOL Piperacillin Sod/Tazobactam (Sod 3.375 gm/ Sodium Chloride) 100 mls @ 200 mls/ hr IVPB Q6HR [facility] Last Admin: 07/31/19 17:29 Dose: 100 mls Dobutamine HCl/Dextrose (Dobutamine 500 Mg/250 Ml) 250 mls @ 6.086 mls/hr IVPB INF [facility]; Protocol Last Admin: 07/29/19 05:15 Dose: 250 mls Vancomycin HCl 500 mg/ Sodium (Chloride) 100 mls @ 100 mls/hr IVPB 0800,2000 [facility] Last Admin: 07/31/19 08:14 Dose: 100 mls Insulin Human Lispro (Humalog) 0 units SC .BEDTIME SLIDING SC PRN; Protocol PRN Reason: BEDTIME SLIDING SCALE Last Admin: 07/30/19 20:57 Dose: 5 unit Insulin Human Lispro (Humalog) 0 units SC .AGGRESSIVE SLIDING PRN; Protocol PRN Reason: AGGRESSIVE SLIDING SCALE Last Admin: 07/31/19 17:47 Dose: 13 unit Lisinopril (Zestril) 10 mg PO BID [facility] Last Admin: 07/31/19 08:14 Dose: 10 mg Loperamide HCl (Imodium) 2 mg PO ASDIR PRN PRN Reason: Diarrhea/Loose Stools Menthol/Methyl Salicylate (Muscle Rub Cream (Bengay)) 0 gm TOP Q6H PRN PRN Reason: Muscle Pain Miscellaneous Medication (Pharmacy To Dose) 0 each IVPB PRN PRN PRN Reason: PHARMACY TO DOSE Nitroglycerin (Nitrostat) 0.4 mg SL Q5MIN PRN PRN Reason: Chest Pain Prednisone (Prednisone) 30 mg PO QAM-[facility] Last Admin: 07/31/19 08:13 Dose: 30 mg Senna/Docusate Sodium (Senokot S) 2 tab PO BID PRN PRN Reason: Constipation Vital Signs & Weight: Vital Signs Temp Pulse Resp BP Pulse Ox 07/31/19 15:48 98.6 F 92 17 149/70 H 95 07/31/19 11:18 97.7 F 90 18 133/73 94 L 07/31/19 08:14 96 07/31/19 07:44 98.4 F 89 18 146/89 H 96 Admit Weight 175 lb 6.4 oz Weight 163 lb - Physical Exam General: alert & oriented x3, no apparent distress HEENT: normocephaly Neck: supple neck, midline trachea Cardiac: regular rate and rhythm Lungs: clear to auscultation Neuro: grossly intact Abdomen: active bowel sounds Skin: clear Musculoskeletal: normal range of motion - Labs Result Diagrams: 07/28/19 06:33 07/31/19 01:08 Troponin/CKMB CK-MB (CK-2) 1.6 ng/mL (0-6.6) 07/23/19 17:36 Troponin I 0.035 ng/mL (< 0.028) H 07/23/19 23:27 - Telemetry Sinus rhythms and dysrhythmias: sinus rhythm - Assessment/Plan Assessment/Plan: 1. Acute on chronic systolic heart failure. 2. Ischemic CM EF at 10-15% 3. Severe PVD. 4. Right foot cellulitis. PLAN: - Continue dobutamine to improve forward flow. - Continue lasix. - Morphine for chest pain. - Will add long acting nitro. - Poor nursing home prognosis. - Still volume overload.
[2019-07-31] MEDS ORDERED: Morphine 4 MG/ML VIAL SLOW IVP SCH (19:30)
[2019-07-31] MEDS: Atorvastatin Calcium 40 MG TAB PO SCH (21:16)
[2019-08-01] MEDS: HYDROcodone/Acetaminophen 5/325 mg Tablet PO PRN ×3 (00:48→20:16)
[2019-08-01] MEDS: Furosemide 100 MG/10 ML VIAL SLOW IVP SCH ×2 (06:13→13:20)
[2019-08-01] MEDS: Piperacillin/Tazobactam 3.375 GM in Sodium Chloride 0.9% 100 ML IVPB SCH ×4 (06:13→23:35)
[2019-08-01 07:41] LABS: Vancomycin, Trough 15.1 ug/mL
[2019-08-01 07:44] LABS: ALT (SGPT) 31 U/L (8-55); AST (SGOT) 45 U/L (5-34); Albumin 3.9 g/dL (3.5-5.0); Alkaline Phosphatase 71 U/L (40-110); Anion Gap 14 mmol/L (10-20); BUN (Urea Nitrogen) 25 mg/dL (8.4-25.7); Bilirubin, Total 0.8 mg/dL (0.2-1.2); Calc. Creatinine Clearance 59 mL/min (70-130); Calcium 9.5 mg/dL (7.8-10.44); Carbon Dioxide 34 mmol/L (22-29); Chloride 94 mmol/L (98-107); Estimated GFR-MDRD 63; Globulin 3.6 g/dL (2.4-3.5); Glucose 224 mg/dL (70-105); Potassium 3.2 mmol/L (3.5-5.1); Protein, Total 7.5 g/dL (6.0-8.3); Sodium 139 mmol/L (136-145)
[2019-08-01 08:01] LABS: #Eosinphils 0.1 thou/uL (0.0-0.7); #Lymphocytes 1.2 thou/uL (1.20-3.40); #Monocytes 1.4 thou/uL (0.11-0.59); #Neutrophils 10.3 thou/uL (1.40-6.50); %Basophils 0.3 % (0.0-1.0); %Eosinophils 0.5 % (0.0-10.0); %Lymphocytes 9.5 % (21.0-51.0); %Monocytes 10.6 % (0.0-10.0); %Neutrophils 79.1 % (42.0-75.0); Hemoglobin 11.3 g/dL (14.0-18.0); Mean Corpuscular HGB CONC 31.5 g/dL (32.0-36.0); Mean Corpuscular Volume 85.7 fL (78.0-98.0); Mean Platelet Volume 10.8 fL (7.4-10.4); Platelet Count 213 thou/uL (130-400); RBC Distribution Width 17.8 % (11.5-14.5)
[2019-08-01] MEDS: Lisinopril 10 MG TAB PO SCH ×2 (08:34→20:16)
[2019-08-01] MEDS: predniSONE 20 MG TAB PO SCH (08:34)
[2019-08-01] MEDS: Isosorbide Mononitrate (ER) 30 MG TAB PO SCH (08:34)
[2019-08-01] MEDS: Aspirin 81 mg Enteric Coated Tablet PO SCH (08:34)
[2019-08-01] MEDS: glipiZIDE 5 MG TAB PO SCH ×2 (08:35→15:27)
[2019-08-01] MEDS: Vancomycin HCl 500 MG in Sodium Chloride 0.9% 100 ML IVPB SCH ×2 (08:36→20:15)
--- NOTE | 2019-08-01 10:28 | ULT ---
EXAM: US Renal Bilateral STANDARD PROVIDED CLINICAL HISTORY: Flank pain COMPARISON: None FINDINGS: The right kidney measures about 10.4 x 4.7 x 6.1 cm and demonstrates no evidence for hydronephrosis o r solid mass. 2 cm simple appearing right renal cyst. Left kidney measures about 11.5 x 6.1 x 5.4 cm and demonstrates no evidence for hydronephrosis or mas s. The urinary bladder is compressed and not well evaluated. IMPRESSION: No evidence for hydronephrosis.
[2019-08-01] MEDS: Potassium Chloride 20 MEQ TAB PO SCH ×3 (10:59→15:27)
[2019-08-01] MEDS: Metolazone 5 MG TAB PO SCH (11:01)
[2019-08-01] MEDS: Clopidogrel Bisulfate 75 MG TAB ONE ×2 (11:13→12:13)
[2019-08-01] MEDS: HumaLOG 300 UNITS/3 ML VIAL SC PRN ×5 (11:51→23:46)
[2019-08-01] MEDS: DOBUTamine 500 mg/250 ml 250 ML IVPB SCH (15:27)
[2019-08-01] MEDS: Nitroglycerin 0.4 MG TAB (25 Tab Bottle) SL PRN ×3 (20:00→20:10)
[2019-08-01] MEDS: Atorvastatin Calcium 40 MG TAB PO SCH (20:16)
[2019-08-01] MEDS: Calcium Carbonate 500 MG ChewTAB PO PRN (23:35)
[2019-08-02 05:16] LABS: Anion Gap 15 mmol/L (10-20); BUN (Urea Nitrogen) 34 mg/dL (8.4-25.7); Calc. Creatinine Clearance 59 mL/min (70-130); Calcium 9.6 mg/dL (7.8-10.44); Carbon Dioxide 28 mmol/L (22-29); Chloride 97 mmol/L (98-107); Estimated GFR-MDRD 63; Glucose 135 mg/dL (70-105); Potassium 3.6 mmol/L (3.5-5.1); Sodium 136 mmol/L (136-145)
[2019-08-02] MEDS: Furosemide 100 MG/10 ML VIAL SLOW IVP SCH ×2 (05:44→14:22)
[2019-08-02] MEDS: HYDROcodone/Acetaminophen 5/325 mg Tablet PO PRN ×3 (05:44→23:22)
[2019-08-02] MEDS: Piperacillin/Tazobactam 3.375 GM in Sodium Chloride 0.9% 100 ML IVPB SCH ×2 (05:45→11:34)
[2019-08-02] MEDS ORDERED: predniSONE 20 MG TAB PO SCH (08:00)
[2019-08-02] MEDS: Potassium Chloride 20 MEQ TAB PO SCH (09:37)
[2019-08-02] MEDS: Lisinopril 10 MG TAB PO SCH ×2 (09:37→21:24)
[2019-08-02] MEDS: Isosorbide Mononitrate (ER) 30 MG TAB PO SCH (09:37)
[2019-08-02] MEDS: Metolazone 5 MG TAB PO SCH (09:38)
[2019-08-02] MEDS: glipiZIDE 5 MG TAB PO SCH ×2 (09:38→15:33)
[2019-08-02] MEDS: Aspirin 81 mg Enteric Coated Tablet PO SCH (09:38)
[2019-08-02] MEDS: Vancomycin HCl 500 MG in Sodium Chloride 0.9% 100 ML IVPB SCH (09:38)
[2019-08-02] MEDS ORDERED: Metolazone 5 MG TAB PO SCH (11:15)
[2019-08-02] MEDS: HumaLOG 300 UNITS/3 ML VIAL SC PRN ×3 (11:34→21:38)
[2019-08-02] MEDS: Carvedilol 3.125 MG TAB PO SCH (16:29)
[2019-08-02] MEDS: Atorvastatin Calcium 40 MG TAB PO SCH (21:24)
[2019-08-02] MEDS: Acetaminophen 325 MG TAB PO PRN (21:30)
[2019-08-03 03:11] VITALS: TEMP 97.6
[2019-08-03 07:36] VITALS: BP 119/64
[2019-08-03] MEDS: Furosemide 100 MG/10 ML VIAL SLOW IVP SCH (07:36)
[2019-08-03] MEDS: Lisinopril 10 MG TAB PO SCH (07:36)
[2019-08-03] MEDS: Calcium Carbonate 500 MG ChewTAB PO PRN (07:37)
[2019-08-03] MEDS: Potassium Chloride 20 MEQ TAB PO SCH (07:37)
[2019-08-03] MEDS: Aspirin 81 mg Enteric Coated Tablet PO SCH (07:37)
[2019-08-03] MEDS: Isosorbide Mononitrate (ER) 30 MG TAB PO SCH (07:37)
[2019-08-03] MEDS: glipiZIDE 5 MG TAB PO SCH (07:37)
[2019-08-03] MEDS: Carvedilol 3.125 MG TAB PO SCH (07:37)
[2019-08-03] MEDS ORDERED: predniSONE 5 MG TAB PO SCH (08:00)
[2019-08-03] MEDS ORDERED: Carvedilol 3.125 MG TAB PO SCH ×2 (08:39→09:45)
[2019-08-03] MEDS ORDERED: Carvedilol 6.25 MG TAB PO SCH ×2 (08:45→17:00)
[2019-08-03] MEDS: Metolazone 5 MG TAB PO SCH (10:08)
[2019-08-03] MEDS: HYDROcodone/Acetaminophen 5/325 mg Tablet PO PRN (10:11)
[2019-08-03] MEDS: HumaLOG 300 UNITS/3 ML VIAL SC PRN (11:24)
[2019-08-03] MEDS ORDERED: Furosemide 80 MG TAB PO SCH (14:00)
[2019-08-03] MEDS ORDERED: Furosemide 20 MG TAB PO SCH (14:00)
--- NOTE | 2019-08-03 19:42 | EKG ---
Test Reason : STAT Blood Pressure : / mmHG Vent. Rate : 100 BPM Atrial Rate : 107 BPM P-R Int : 180 ms QRS Dur : 104 ms QT Int : 428 ms P-R-T Axes : 061 -01 121 degrees QTc Int : 552 ms Normal sinus rhythm with frequent Premature ventricular and fusion complexes Inferior infarct (cited on or before 19-APR-2013) Prolonged QT Abnormal ECG When compared with ECG of 31-JUL-2019 00:22, (Unconfirmed) Current undetermined rhythm precludes rhythm comparison, needs review Confirmed by ALVERTO DAWSON, . SEstevan (4) on 08/03/2019 7:42:20 PM Referred By: HARRIETT Confirmed By:DR. Krissy DEL TORO MD
--- NOTE | 2019-08-04 22:28 | PQF ---
[employer] Win[employer] ARCELIA Beckwith LILIAN LORENZANA MD [id number] [id number] CLINICAL DOCUMENTATION CLARIFICATION FORM: POST DISCHARGE Addendum to original discharge summary date: ____ Late entry note date: __ DATE:08/04/2019 ATTN: LILIAN LORENZANA MD Please exercise your independent, professional judgment in responding to the clarification form. Clinical indicators are provided on the bottom of this form for your review Please check appropriate box(s) to clarify if the following diagnosis has been ruled in or ruled out: Myocardial infarction [ ] Ruled in diagnosis [ ] Continue to treat [ ] Resolved [ y ] Ruled out diagnosis [ ] Cannot rule out diagnosis [ ] Other diagnosis [ ] Unable to determine For continuity of documentation, please document condition throughout progress notes and discharge summary. Thank You. CLINICAL INDICATORS - SIGNS / SYMPTOMS / LABS -Chest pain, rule out myocardial infection-H&P, 07/23, LILIAN LORENZANA MD -Severe cardiomyopathy with EF of 15%-H&P, 07/23, LILIAN LORENZANA MD -Indeterminant troponin-ED record, 07/23, Cherry Carter MD -Troponin I- 0.035H-Laboratory, 07/23 -No acute [address]-T cahnges seen-H&P, 07/23, LILIAN LORENZANA MD RISK FACTORS -Acute on chronic congestive heart failure combined-H&P, 07/23, LILIAN LORENZANA MD -PS: AICD-Consult, 07/24, Batsheva Lu MD -PS: left AKA-Consult report, 07/24, Yobani Pearson MD TREATMENTS -Cardiology consult-H&P, 07/23, LILIAN LORENZANA MD -Lasix 40mg IVP, H&P, 07/23, LILIAN LORENZANA MD (This form is maintained as a part of the permanent medical record) [employer] Win[employer] [id number] [employer]. All Rights Reserved Hussain Leung [not provided] [not provided] MTDD
--- NOTE | 2019-08-06 11:51 | EKG ---
Test Reason : Blood Pressure : / mmHG Vent. Rate : 089 BPM Atrial Rate : 089 BPM P-R Int : 182 ms QRS Dur : 106 ms QT Int : 452 ms P-R-T Axes : 056 009 051 degrees QTc Int : 549 ms Sinus rhythm with occasional Premature ventricular complexes Possible Left atrial enlargement Possible Inferior infarct , age undetermined Prolonged QT Abnormal ECG When compared with ECG of 20-JUN-2019, No significant change was found Confirmed by JOS JOSEPH M.D. ([id number]), development editor SKY MACIAS ([id number]) on 08/06/2019 11:51:33 AM Referred By: Confirmed By:JOS JOSEPH M.D.
--- NOTE | 2019-08-08 07:58 | EKG ---
Test Reason : STAT Blood Pressure : / mmHG Vent. Rate : 089 BPM Atrial Rate : 090 BPM P-R Int : 174 ms QRS Dur : 104 ms QT Int : 442 ms P-R-T Axes : 051 002 099 degrees QTc Int : 537 ms Sinus rhythm with frequent Premature ventricular complexes and Premature atrial complexes Possible Left atrial enlargement Inferior infarct (cited on or before 19-APR-2013) Prolonged QT Abnormal ECG When compared with ECG of 23-JUL-2019 17:01, (Unconfirmed) Premature atrial complexes are now Present Nonspecific T wave abnormality no longer evident in Inferior leads T wave inversion less evident in Anterior leads Confirmed by IRMA RIBERA ([id number]) on 08/08/2019 7:58:15 AM Referred By: HARRIETT Confirmed By:IRMA RIBERA
== END 2019-08-03 11:45 | disposition home health service (06) | DRG 291 ==
LOC: ERS 16:43 → 2NO 21:58
PROVIDERS: ADMIT Internal Medicine; ATTEND Internal Medicine
DX: I13.0 Hypertensive heart and chronic kidney disease with heart failure and stage 1 through stage 4 chronic kidney disease, or unspecified chronic kidney disease (principal); I50.23 Acute on chronic systolic (congestive) heart failure; L03.115 Cellulitis of right lower limb; M86.152 Other acute osteomyelitis, left femur; I42.9 Cardiomyopathy, unspecified; F17.210 Nicotine dependence, cigarettes, uncomplicated; N18.3 Chronic kidney disease, stage 3 (moderate); F19.10 Other psychoactive substance abuse, uncomplicated; I25.5 Ischemic cardiomyopathy; Z51.5 Encounter for palliative care; E78.5 Hyperlipidemia, unspecified; E11.51 Type 2 diabetes mellitus with diabetic peripheral angiopathy without gangrene; F32.9 Major depressive disorder, single episode, unspecified; E11.22 Type 2 diabetes mellitus with diabetic chronic kidney disease; E78.00 Pure hypercholesterolemia, unspecified; J44.9 Chronic obstructive pulmonary disease, unspecified; Z89.612 Acquired absence of left leg above knee; I25.2 Old myocardial infarction; Z95.810 Presence of automatic (implantable) cardiac defibrillator; Z91.14 Patient's other noncompliance with medication regimen; Z95.5 Presence of coronary angioplasty implant and graft
CPT/HCPCS: 36415; 36416; 71045; 76770; 80048; 80053; 80202; 80306; 81001; 82553; 83605; 83735; 83880; 84132; 84484; 84550; 85025; 86780; 87040; 93005; 93010; 96365; 96367; 96375; J1250; J1940; J2270; J2543; J3370; J3475; J3490; J7050; J7512

== ENCOUNTER 2019-08-10 11:37 | Outpatient (CLI) | payer MEDICARE ==
[2019-08-10] MEDS ORDERED: Sodium Chloride 0.9% 15 ML NEB ONE (16:03)
--- NOTE | 2019-08-10 17:07 | PRG ---
DATE OF SERVICE: 08/10/2019 HISTORY: Mr. Shoaib Irving is a very pleasant 58-year-old gentleman, who presents to the wound center for evaluation of an ulceration of his left hzjfs-leh-wpor amputation stump in addition to an ulceration of the right medial lower leg. The patient underwent left fcrig-gts-pcri amputation by Dr. Jason Khan on 04/16/2019. In June of this year, the patient underwent incision and drainage at bedside by Dr. Khan for treatment of an infected hematoma of his left fneej-pel-taly amputation stump. The patient declined PICC line insertion and the administration of IV antibiotics and is therefore receiving p.o. antibiotics as per Dr. Rivera for possible osteomyelitis. Since the patient's last visit to the wound center, Mr. Irving was admitted to [facility] for a congestive heart failure exacerbation. During the patient's hospital stay, negative pressure therapy for his left klqyj-gkw-ygsi amputation stump wound was discontinued and dressing changes with Promogran initiated. PHYSICAL EXAMINATION: VITAL SIGNS: Temperature 97.4, pulse 70, respirations 20, and blood pressure 113/62. Accu-Chek 239. EXTREMITIES: An ulceration of the left zbdzt-pxl-lbdz amputation stump is present, which measures approximately 0.4 x 1.0 cm. An ulceration of the right medial lower leg is present, which measures approximately 1.2 x 2.2 cm. Eschar covers the entire the wound bed of the right medial lower leg ulceration. Granulation tissue is present within the margins of the left rgtna-ylt-jojg amputation stump wound. No purulent drainage is associated with the wound. No erythema of the skin surrounding the wound is present. No laceration of the skin of the periwound is noted. Edema of the right lower extremity is again noted on exam today. ASSESSMENT AND PLAN: 1. Ulceration of left xeskj-sjs-abbu amputation stump and right medial lower leg ulceration as described above. Dressing changes of Promogran for the left yukil-kqw-kumu amputation stump wound will be continued. The ulceration of the right medial lower leg will be left open to air. As stated above, the patient is receiving p.o. antibiotics as per Dr. Iam Rivera of Infectious Diseases. I will see Mr. Irving again in 2 weeks. 2. Coronary artery disease. 3. Diabetes mellitus. The patient's Accu-Chek in clinic today is 239. The patient has been told that for optimal wound healing his blood glucoses should remain below 150. 4. Cardiomyopathy. 5. Hypertension. 6. Chronic kidney disease. 7. Anemia. 8. Atrial flutter status post ablation. 9. History of syncope. 10. Chronic obstructive pulmonary disease. 11. History of pulmonary embolism. 12. Peripheral vascular disease. During the patient's most recent admission, Mr. Irving was seen in consultation by Dr. Gibson Jimenez. 13. Cataracts. 14. Valvular heart disease. Job ID: [id number]
== END 2019-08-10 11:38 | disposition home or self-care (01) ==
LOC: WCC 11:37
PROVIDERS: ATTEND Family Medicine
DX: T81.89XD Other complications of procedures, not elsewhere classified, subsequent encounter (principal); E11.621 Type 2 diabetes mellitus with foot ulcer; L97.129 Non-pressure chronic ulcer of left thigh with unspecified severity; I25.10 Atherosclerotic heart disease of native coronary artery without angina pectoris; I42.9 Cardiomyopathy, unspecified; I12.9 Hypertensive chronic kidney disease with stage 1 through stage 4 chronic kidney disease, or unspecified chronic kidney disease; N18.9 Chronic kidney disease, unspecified; J44.9 Chronic obstructive pulmonary disease, unspecified; E11.52 Type 2 diabetes mellitus with diabetic peripheral angiopathy with gangrene; H26.9 Unspecified cataract; I38 Endocarditis, valve unspecified; Z86.73 Personal history of transient ischemic attack (TIA), and cerebral infarction without residual deficits
CPT/HCPCS: 36416; A4218

== ENCOUNTER 2019-08-11 06:00 | Emergency (ER) | payer MEDICARE ==
[2019-08-11] MEDS ORDERED: Morphine 4 MG/ML VIAL ONE ×2 (07:19→10:11)
[2019-08-11] MEDS ORDERED: Morphine 2 MG/ML SYRINGE ONE ×2 (07:20→10:12)
[2019-08-11 07:34] LABS: #Eosinphils 0.1 thou/uL (0.0-0.7); #Lymphocytes 1.1 thou/uL (1.20-3.40); #Monocytes 1.2 thou/uL (0.11-0.59); #Neutrophils 9.2 thou/uL (1.40-6.50); %Basophils 0.4 % (0.0-1.0); %Eosinophils 0.5 % (0.0-10.0); %Lymphocytes 9.4 % (21.0-51.0); %Monocytes 10.4 % (0.0-10.0); %Neutrophils 79.3 % (42.0-75.0); Hemoglobin 11.3 g/dL (14.0-18.0); Mean Corpuscular HGB CONC 33.3 g/dL (32.0-36.0); Mean Corpuscular Hemoglobin 27.2 pg (27.0-31.0); Mean Corpuscular Volume 81.9 fL (78.0-98.0); Mean Platelet Volume 11.5 fL (7.4-10.4); Platelet Count 169 thou/uL (130-400); RBC Distribution Width 17.7 % (11.5-14.5); Red Blood Cell (RBC) Count 4.13 mill/uL (4.70-6.10); White Blood Cell (WBC) Count 11.6 thou/uL (4.8-10.8)
--- NOTE | 2019-08-11 07:46 | RAD ---
RIGHT ANKLE 3 VIEWS: HISTORY: Pain following injury from a fall. FINDINGS: There is soft tissue swelling of the lower leg and ankle. Mild bone demineralization. No evidence f or acute fracture or dislocation. IMPRESSION: Soft tissue swelling. Mild degenerative change. No evidence for acute fracture or dislocation. POS: ELENITA
[2019-08-11 07:54] LABS: Anion Gap 18 mmol/L (10-20); BUN (Urea Nitrogen) 48 mg/dL (8.4-25.7); CRP (Inflammatory) 2.84 mg/dL (= or < 0.5); Calc. Creatinine Clearance 0 mL/min (70-130); Calcium 9.7 mg/dL (7.8-10.44); Carbon Dioxide 25 mmol/L (22-29); Chloride 97 mmol/L (98-107); Estimated GFR-MDRD 48; Glucose 122 mg/dL (70-105); Potassium 4.3 mmol/L (3.5-5.1); Sodium 136 mmol/L (136-145)
--- NOTE | 2019-08-11 07:58 | RAD ---
RIGHT FOOT 3 VIEWS: HISTORY: Pain following injury from a fall. FINDINGS: There is some diffuse soft tissue swelling of the foot. IMPRESSION: Minimal soft tissue swelling without acute fracture or dislocation. POS: CATHERINE
--- NOTE | 2019-08-11 09:11 | ULT ---
VENOUS DOPPLER ULTRASOUND OF THE RIGHT LOWER EXTREMITY: HISTORY: Right lower extremity pain. TECHNIQUE: Estrada scale ultrasound with color spectral Doppler imaging of the deep venous system of the right lowe r extremity was performed. FINDINGS: There is good flow, compression, and augmentation noted in the right common femoral, femoral, deep fe moral, popliteal, posterior tibial, and greater saphenous veins. IMPRESSION: No evidence of deep vein thrombosis in the right lower extremity. POS: OFF
== END 2019-08-11 11:33 | disposition home or self-care (01) ==
LOC: ERS 06:00
DX: I99.8 Other disorder of circulatory system (principal); I11.0 Hypertensive heart disease with heart failure; I50.9 Heart failure, unspecified; I25.2 Old myocardial infarction; E11.9 Type 2 diabetes mellitus without complications; E78.5 Hyperlipidemia, unspecified; F17.210 Nicotine dependence, cigarettes, uncomplicated; Z79.899 Other long term (current) drug therapy
CPT/HCPCS: 80048; 85025; 85652; 86140; 96374; 96376; J2270

== ENCOUNTER 2019-08-24 13:05 | Outpatient (CLI) | payer MEDICARE ==
--- NOTE | 2019-08-24 17:48 | PRG ---
DATE OF SERVICE: 08/24/2019 SUBJECTIVE: Mr. Shoaib Irving is a very pleasant 58-year-old gentleman, who presents to the Wound Center for evaluation of an ulceration of his left xamxk-bvf-lgmb amputation stump in addition to an ulceration of the right medial lower leg. The patient underwent left kthsk-qvc-brdm amputation by Dr. Jason Khan on 04/16/2019. In June of this year, the patient underwent incision and drainage at bedside by Dr. Khan for treatment of an infected hematoma of his left witbh-plb-zvrh amputation stump. The patient declined PICC line insertion in the administration of IV antibiotics and is therefore receiving p.o. antibiotics as per Dr. Rivera for possible osteomyelitis. The patient was recently admitted to [facility] for a congestive heart failure exacerbation. During the patient's hospital stay, negative pressure therapy for his left ukmyq-iqt-awkv amputation stump wound was discontinued and dressing changes with Promogran were initiated. OBJECTIVE: VITAL SIGNS: Temperature 98.0, pulse 80, blood pressure 123/73. EXTREMITIES: An ulceration of the left rfgti-hsx-gjep amputation stump is present, which measures approximately 0.4 x 1.0 cm. An ulceration of the right medial lower leg is present, which measures approximately 2.0 x 2.5 cm. Eschar covers the entire wound bed of the right medial lower leg ulceration. Granulation tissue is present within the margins of the left fwuwv-hkn-wnmt amputation stump wound. No purulent drainage is associated with the wound. No erythema of the skin surrounding the wound is present. No maceration of the skin of the periwound is noted. Edema of the right lower extremity is again noted on today's exam. ASSESSMENT AND PLAN: 1. Ulceration of left ylkbo-rbt-eayv amputation stump and right medial lower leg ulceration as described above. Dressing changes of Promogran for the left dndpa-paw-uicf amputation stump will be continued. The ulceration of the right medial lower leg will be open to air. As stated above, the patient is receiving p.o. antibiotics as per Dr. Iam Rivera of Infectious Diseases. I will see Mr. Irving again in 2 weeks. The patient reports significant pain of his right lower extremity. Mr. Irving has been given a prescription for Tylenol No. 3 one to two p.o. q.4 to 6 hours p.r.n. pain. The patient has been given a prescription for 30 tablets. The patient was seen in consultation by Dr. Gibson Jimenez on 07/27/2019. Per Dr. Jimenez, the patient has non-reconstructible peripheral vascular disease of the right lower extremity due to multiple etiologies. 2. Coronary artery disease. 3. Diabetes mellitus. Accu-Cheks will be obtained at the time of the patient's clinic visits. The patient has been told that for optimal wound healing, his blood glucoses should remain below 150. 4. Cardiomyopathy. 5. Hypertension. 6. Chronic kidney disease. 7. Anemia. 8. Atrial flutter, status post ablation. 9. History of syncope. 10. Chronic obstructive pulmonary disease. 11. History of pulmonary embolism. 12. Peripheral vascular disease. 13. Cataracts. 14. Valvular heart disease. Job ID: [id number]
[2019-08-24] MEDS ORDERED: Sodium Chloride 0.9% 15 ML NEB ONE (18:00)
== END 2019-08-24 13:06 | disposition home or self-care (01) ==
LOC: WCC 13:05
PROVIDERS: ATTEND Family Medicine
DX: T81.89XD Other complications of procedures, not elsewhere classified, subsequent encounter (principal); E11.622 Type 2 diabetes mellitus with other skin ulcer; L97.919 Non-pressure chronic ulcer of unspecified part of right lower leg with unspecified severity; L97.929 Non-pressure chronic ulcer of unspecified part of left lower leg with unspecified severity; I13.0 Hypertensive heart and chronic kidney disease with heart failure and stage 1 through stage 4 chronic kidney disease, or unspecified chronic kidney disease; E11.22 Type 2 diabetes mellitus with diabetic chronic kidney disease; I50.9 Heart failure, unspecified; N18.9 Chronic kidney disease, unspecified; D63.1 Anemia in chronic kidney disease; I25.10 Atherosclerotic heart disease of native coronary artery without angina pectoris; J44.9 Chronic obstructive pulmonary disease, unspecified; I73.9 Peripheral vascular disease, unspecified; I42.9 Cardiomyopathy, unspecified; H26.9 Unspecified cataract; I38 Endocarditis, valve unspecified; I48.92 Unspecified atrial flutter; Z86.711 Personal history of pulmonary embolism; Z86.79 Personal history of other diseases of the circulatory system
CPT/HCPCS: A4218

== ENCOUNTER 2019-09-07 12:03 | Outpatient (CLI) | payer MEDICARE ==
[~2019-09-07 12:03] MED LIST changes: -ISOVUE-370 76%-LOCM 1 ML ONE; +Sodium Chloride 0.9% 15 ML NEB ONE
--- NOTE | 2019-09-07 12:20 | PRG ---
DATE OF SERVICE: 09/07/2019 HISTORY: Mr. Shoaib Irving is a very pleasant 59-year-old gentleman who presents to the Wound Center for evaluation of an ulceration of his left jvobn-pff-clcs amputation stump in addition to an ulceration of the right medial lower leg. The patient underwent left suouw-ely-ywnn amputation by Dr. Jason Khan on 04/16/2019. In June of this year, the patient underwent incision and drainage at bedside by Dr. Khan for treatment of an infected hematoma of his left ndopd-ifw-ckzr amputation stump. The patient declined PICC line insertion and the administration of IV antibiotics and therefore, received p.o. antibiotics as per Dr. Rivera for possible osteomyelitis. The patient was subsequently admitted to [facility] for congestive heart failure exacerbation during the patient's hospital stay. Negative pressure therapy for his left hemlf-cca-wyga amputation stump wound was discontinued, and dressing changes with Promogran were initiated. PHYSICAL EXAMINATION: VITAL SIGNS: Temperature 97.6, pulse 71, respirations 20, blood pressure 119/58. Accu-Chek 325. EXTREMITIES: An ulceration of the left ctiym-cun-cdsx amputation stump is present, which measures approximately 0.3 x 0.7 cm. An ulceration of the right medial lower leg is present, which measures approximately 1.5 x 2.2 cm. Eschar covers a large portion of the wound bed of the right medial lower leg ulceration. Granulation tissue is present within the margins of the left pmkwi-wpa-gbdw amputation stump wound. No purulent drainage is associated with the wound. No erythema of the skin surrounding the wound is present. No maceration of the skin of the periwound is noted. Edema of the right lower extremity is again noted on today's exam. ASSESSMENT AND PLAN: 1. Ulceration of left qbuns-xlw-hmes amputation stump and right medial lower leg ulceration as described above. Dressing changes of Promogran for the left ccrnk-gfj-qege amputation stump will be continued. The ulceration of the right medial lower leg will be left open to air. I will see Mr. Irving again in 2 weeks. Again, the patient reports significant pain of his right lower extremity. The patient has been given a second prescription for Tylenol No. 3 one to two p.o. q.4 to 6 hours p.r.n. pain. The patient has been given a prescription for 30 tablets. The patient was seen in consultation by Dr. Gibson Jimenez on 07/27/2019. Per Dr. Jimenez, the patient has non-reconstructible peripheral vascular disease of the right lower extremity due to multiple etiologies. 2. Coronary artery disease. 3. Diabetes mellitus. The patient's Accu-Chek in clinic today is 225. The patient has been reminded that for optimal wound healing, his blood glucoses should remain below 150. 4. Cardiomyopathy. 5. Hypertension. 6. Chronic kidney disease. 7. Anemia. 8. Atrial flutter, status post ablation. 9. History of syncope. 10. Chronic obstructive pulmonary disease. 11. History of pulmonary embolism. 12. Peripheral vascular disease. 13. Cataracts. 14. Valvular heart disease. Job ID: [id number]
== END 2019-09-07 12:04 | disposition home or self-care (01) ==
LOC: WCC 12:03
PROVIDERS: ATTEND Family Medicine
DX: T87.89 Other complications of amputation stump (principal); I25.10 Atherosclerotic heart disease of native coronary artery without angina pectoris; E11.22 Type 2 diabetes mellitus with diabetic chronic kidney disease; E11.51 Type 2 diabetes mellitus with diabetic peripheral angiopathy without gangrene; I42.9 Cardiomyopathy, unspecified; I12.9 Hypertensive chronic kidney disease with stage 1 through stage 4 chronic kidney disease, or unspecified chronic kidney disease; N18.9 Chronic kidney disease, unspecified; D63.1 Anemia in chronic kidney disease; I48.92 Unspecified atrial flutter; R55 Syncope and collapse; J44.9 Chronic obstructive pulmonary disease, unspecified; E11.36 Type 2 diabetes mellitus with diabetic cataract; I38 Endocarditis, valve unspecified
CPT/HCPCS: 36416; A4218

== ENCOUNTER 2019-09-21 11:15 | Outpatient (CLI) | payer MEDICARE ==
--- NOTE | 2019-09-21 14:13 | PRG ---
DATE OF SERVICE: 09/21/2019 HISTORY: Mr. Shoaib Irving is a very pleasant 59-year-old gentleman, who presents to the Wound Center for evaluation of an ulceration of his left cengp-esz-fpqo amputation stump in addition to an ulceration of the right medial lower leg. The patient underwent left cakbm-umy-pzes amputation by Dr. Jason Khan on 04/16/2019. In June of this year, the patient underwent incision and drainage at bedside by Dr. Khan for treatment of an infected hematoma of his left fxgvj-gsh-yxdv amputation stump. The patient declined PICC line insertion and the administration of IV antibiotics and therefore received p.o. antibiotics as per Dr. Rivera for possible osteomyelitis. The patient was subsequently admitted to [facility] for congestive heart failure exacerbation. During the patient's hospital stay, negative pressure therapy for his left tfyha-sli-icys amputation stump wound was discontinued and dressing changes with Promogran were initiated. PHYSICAL EXAMINATION: VITAL SIGNS: Temperature 97.6, pulse 104, respirations 20, and blood pressure 104/64. EXTREMITIES: An ulceration of the left yqdcq-bdg-sivi amputation stump is present, which measures approximately 0.7 x 0.2 cm. An ulceration of the right medial lower leg is present, which measures approximately 2.0 x 2.7 cm. Eschar covers the entirety of the wound bed of the right medial lower leg ulceration on today's exam. Granulation tissue is present within the margins of the left zwoud-has-xboi amputation stump wound. No purulent drainage is associated with the wound. No erythema of the skin surrounding the wound is present. No maceration of the skin of the periwound is noted. Edema of the right lower extremity is again noted on exam today. ASSESSMENT AND PLAN: 1. Ulceration of left leuov-ijy-wpjm amputation stump and right medial lower leg ulceration as described above. Dressing changes of Promogran for the left jibfq-mqy-rkgl amputation stump will be continued. The ulceration of the right medial lower leg will be left open to air. I will see Mr. Irving again in 2 weeks. Again, the patient reports significant pain of his right lower extremity. The patient states he has been seen by Dr. Rowell and is awaiting a referral to Pain Management. The patient was seen in consultation by Dr. Gibosn Jimenez on 07/27/2019. Per Dr. Jimenez, the patient has nonreconstructible peripheral vascular disease of the right lower extremity due to multiple etiologies. 2. Coronary artery disease. 3. Diabetes mellitus. Accu-Cheks will be obtained at the time of the patient's clinic visits. The patient has been reminded that for optimal wound healing, his blood glucoses should remain below 150. 4. Cardiomyopathy. 5. Hypertension. 6. Chronic kidney disease. 7. Anemia. 8. Atrial flutter, status post ablation. 9. History of syncope. 10. Chronic obstructive pulmonary disease. 11. History of pulmonary embolism. 12. Peripheral vascular disease. 13. Cataracts. 14. Valvular heart disease. Job ID: [id number]
== END 2019-09-21 11:16 | disposition home or self-care (01) ==
LOC: WCC 11:15
PROVIDERS: ATTEND Family Medicine
DX: T87.89 Other complications of amputation stump (principal); L97.919 Non-pressure chronic ulcer of unspecified part of right lower leg with unspecified severity; I25.10 Atherosclerotic heart disease of native coronary artery without angina pectoris; E11.622 Type 2 diabetes mellitus with other skin ulcer; I12.9 Hypertensive chronic kidney disease with stage 1 through stage 4 chronic kidney disease, or unspecified chronic kidney disease; E11.22 Type 2 diabetes mellitus with diabetic chronic kidney disease; N18.9 Chronic kidney disease, unspecified; D63.1 Anemia in chronic kidney disease; J44.9 Chronic obstructive pulmonary disease, unspecified; E11.51 Type 2 diabetes mellitus with diabetic peripheral angiopathy without gangrene; I99.9 Unspecified disorder of circulatory system; E11.36 Type 2 diabetes mellitus with diabetic cataract; I42.9 Cardiomyopathy, unspecified; Z86.711 Personal history of pulmonary embolism
CPT/HCPCS: 36415; 84132; 97602; A4218

== ENCOUNTER 2019-10-05 10:00 | Outpatient (CLI) | payer MEDICARE ==
[2019-10-05] MEDS ORDERED: Sodium Chloride 0.9% 15 ML NEB ONE (17:07)
--- NOTE | 2019-10-05 18:02 | PRG ---
DATE OF SERVICE: 10/05/2019 HISTORY: Mr. Shoaib Irving is a very pleasant 59-year-old gentleman, who presents to the Wound Center for evaluation of an ulceration of his left cyzlr-yys-zpkw amputation stump in addition to an ulceration of the right medial lower leg. The patient underwent left qmhnv-ghk-dhcp amputation by Dr. Jason Khan on 04/16/2019. In June of this year, the patient underwent incision and drainage at bedside by Dr. Khan for treatment of an infected hematoma of his left hwula-zvp-kpbr amputation stump. The patient declined PICC line insertion and the administration of IV antibiotics and therefore received p.o. antibiotics as per Dr. Rivera for possible osteomyelitis. The patient was subsequently admitted to [facility] for congestive heart failure exacerbation. During the patient's hospital stay, negative pressure therapy for his left bqsyq-xcs-omds amputation stump wound was discontinued and dressing changes with Promogran were initiated. PHYSICAL EXAMINATION: VITAL SIGNS: Temperature 97.6, pulse 102, respirations 18, blood pressure 96/53. EXTREMITIES: The ulceration of the left lllxp-sio-zgke amputation stump has healed completely. An ulceration of the right medial lower leg is present which measures approximately 1.5 x 2.8 cm. An ulceration of the right great toe is also present, which measures approximately 0.7 x 0.7 cm. No purulent drainage is associated with either wound. No erythema of the skin surrounding either wound is present. No maceration of the skin of the periwound of either wound is noted. Edema of the right lower extremity is again noted on today's exam. ASSESSMENT AND PLAN: 1. Ulceration of left ufmgh-ofe-bxvm amputation stump and right lower and right medial lower leg ulceration as described above. The patient also has an ulceration of the right great toe. As stated above, the ulceration of the left xexux-pdm-gooq amputation stump has healed completely. For the right medial lower leg ulceration and right great toe ulceration dressing changes of Mepilex border are to be performed 3 times per week after cleansing and irrigation with the assistance of Home Health. I will see Mr. Irving again in 2 weeks. Again, if the patient reports significant pain of his right lower extremity, a referral to Pain Management will be made for the patient. The patient has been seen in consultation by Dr. Gibson Jimenez on 07/27/2019. Per Dr. Jimenez, the patient has non-reconstructible peripheral vascular disease of the right lower extremity due to multiple etiologies. 2. Coronary artery disease. 3. Diabetes mellitus. Accu-Chek will be obtained at the time of the patient's clinic visits. The patient has been reminded that for optimal wound healing his blood glucoses should remain below 150. 4. Cardiomyopathy. 5. Hypertension. 6. Chronic kidney disease. 7. Anemia. 8. Atrial flutter, status post ablation. 9. History of syncope. 10. Chronic obstructive pulmonary disease. 11. History of pulmonary embolism. 12. Peripheral vascular disease. 13. Cataracts. 14. Valvular heart disease. Job ID: [id number]
== END 2019-10-05 10:01 | disposition home or self-care (01) ==
LOC: WCC 10:00
PROVIDERS: ATTEND Family Medicine
DX: T87.89 Other complications of amputation stump (principal); I25.10 Atherosclerotic heart disease of native coronary artery without angina pectoris; I12.9 Hypertensive chronic kidney disease with stage 1 through stage 4 chronic kidney disease, or unspecified chronic kidney disease; E11.22 Type 2 diabetes mellitus with diabetic chronic kidney disease; N18.9 Chronic kidney disease, unspecified; D63.1 Anemia in chronic kidney disease; I42.9 Cardiomyopathy, unspecified; I48.92 Unspecified atrial flutter; J44.9 Chronic obstructive pulmonary disease, unspecified; I73.9 Peripheral vascular disease, unspecified; H26.9 Unspecified cataract; I38 Endocarditis, valve unspecified; Z86.711 Personal history of pulmonary embolism; Z98.890 Other specified postprocedural states
CPT/HCPCS: A4218

== ENCOUNTER 2019-10-16 16:09 | Inpatient (IN) | payer MEDICARE ==
[2019-10-16] MEDS ORDERED: Ketorolac Tromethamine 30 MG/ML VIAL ONE (16:41)
[2019-10-16] MEDS ORDERED: Morphine 4 MG/ML VIAL ONE (16:41)
[2019-10-16 16:45] LABS: #Eosinphils 0.2 thou/uL (0.0-0.7); #Lymphocytes 1.2 thou/uL (1.20-3.40); #Monocytes 0.6 thou/uL (0.11-0.59); #Neutrophils 6.5 thou/uL (1.40-6.50); %Basophils 0.2 % (0.0-1.0); %Eosinophils 2.1 % (0.0-10.0); %Lymphocytes 14.5 % (21.0-51.0); %Neutrophils 76.2 % (42.0-75.0); Hemoglobin 9.6 g/dL (14.0-18.0); Mean Corpuscular Hemoglobin 28.7 pg (27.0-31.0); Mean Corpuscular Volume 89.6 fL (78.0-98.0); Mean Platelet Volume 9.6 fL (7.4-10.4); Platelet Count 128 thou/uL (130-400); RBC Distribution Width 17.6 % (11.5-14.5); Red Blood Cell (RBC) Count 3.36 mill/uL (4.70-6.10); White Blood Cell (WBC) Count 8.5 thou/uL (4.8-10.8)
--- NOTE | 2019-10-16 17:03 | RAD ---
XR Ankle Rt 3 View STANDARD INDICATION: Right lower extremity pain and open wounds COMPARISON: Prior exam dated August 11, 2019 FINDINGS: Bones: Intact. Ankle mortise: Symmetric. Talar Dome: Intact. Subtalar joint: Normal. Visualized hindfoot: Normal. Periarticular soft tissues: There is diffuse soft tissue swelling of the right distal foreleg, right ankle and right hindfoot. No radiographic foreign body is demonstrated. IMPRESSION: 1. No acute fracture or subluxation demonstrated.
--- NOTE | 2019-10-16 17:03 | RAD ---
XR Foot Rt 3 View STANDARD INDICATION: Right foot ulcers concern for osteomyelitis COMPARISON: August 11, 2019 FINDINGS: Bones: No acute fracture identified. Joints: There is mild scattered forefoot osteoarthrosis. Lisfranc alignment: Lisfranc alignment appears within normal limits. Soft tissues: There is soft tissue swelling of the right foot. No radiopaque foreign body. IMPRESSION: No acute osseous abnormality. Soft tissue swelling of the right foot.
--- NOTE | 2019-10-16 17:04 | RAD ---
XR Tib Fib Rt Leg 2 View INDICATION: Right lower extremity pain and swelling FINDINGS: Bones: No acute fracture or subluxation is evident. Joints: No acute abnormality. Soft tissues: There are vascular calcifications within soft tissues. There is diffuse swelling of the right foreleg soft tissues. IMPRESSION: No acute osseous abnormality.
[2019-10-16 17:07] LABS: ALT (SGPT) 9 U/L (8-55); AST (SGOT) 12 U/L (5-34); Albumin 3.6 g/dL (3.5-5.0); Alkaline Phosphatase 100 U/L (40-110); Anion Gap 13 mmol/L (10-20); BUN (Urea Nitrogen) 33 mg/dL (8.4-25.7); Bilirubin, Total 1.4 mg/dL (0.2-1.2); Calc. Creatinine Clearance 0 mL/min (70-130); Calcium 8.9 mg/dL (7.8-10.44); Carbon Dioxide 26 mmol/L (22-29); Chloride 101 mmol/L (98-107); Estimated GFR-MDRD 48; Globulin 3.4 g/dL (2.4-3.5); Glucose 353 mg/dL (70-105); Potassium 3.8 mmol/L (3.5-5.1); Sodium 136 mmol/L (136-145)
--- NOTE | 2019-10-16 17:27 | ULT ---
RIGHT LOWER EXTREMITY DOPPLER VENOUS ULTRASOUND PROVIDED CLINICAL HISTORY: Right lower extremity pain and edema TECHNIQUE: Grayscale and color Doppler sonography with spectral analysis was performed of the right common femor al, femoral, popliteal, posterior tibial, greater saphenous and profunda femoral veins. FINDINGS: There is normal compression, flow and augmentation seen within the deep venous structures o f the right lower extremity. There is severe atherosclerotic calcification and narrowing involving the visualized aspects of the r ight common femoral artery and right femoral artery. There is very slow antegrade waveforms seen within the right common femoral and right femoral artery. This was present on a right lower extremity arterial evaluation dated April 13, 2019. There are nonspecific mildly enlarged lymph nodes seen within the right inguinal region. IMPRESSION: No sonographic evidence for right lower extremity deep venous thrombosis. Stable severe atherosclerotic narrowing involving the visualized right common femoral artery and righ t femoral artery. Mildly enlarged lymph nodes within the right inguinal region.
[2019-10-16] MEDS ORDERED: Piperacillin/Tazobactam 4.5 GM VIAL ONE (18:58)
[2019-10-16] MEDS ORDERED: Sodium Chloride 0.9% 100 ML ONE (18:58)
[2019-10-16 19:20] LABS: Syphilis Antibody Nonreactive (Nonreactive); Syphilis Antibody Index 0.06 S/CO (<1.00 Non-Reactive)
[2019-10-16] MEDS ORDERED: Acetaminophen 325 MG TAB PO PRN (20:16)
[2019-10-16] MEDS ORDERED: Clindamycin/D5W 900 MG in Premix Bag 1 BAG IVPB SCH (20:30)
[2019-10-16 21:41] VITALS: BMI 22.6
[2019-10-16] MEDS ORDERED: Piperacillin/Tazobactam 2.25 GM in Sodium Chloride 0.9% 100 ML IVPB SCH (22:00)
[2019-10-16] MEDS: Acetaminophen/Codeine 30-300mg Tablet PO PRN (23:43)
[2019-10-17] MEDS ORDERED: Morphine 2 MG/ML SYRINGE SLOW IVP PRN (01:33)
[2019-10-17] MEDS: Piperacillin/Tazobactam 2.25 GM in Sodium Chloride 0.9% 100 ML IVPB SCH ×4 (01:48→21:15)
[2019-10-17] MEDS: Acetaminophen/Codeine 30-300mg Tablet PO PRN ×2 (08:48→15:38)
[2019-10-17] MEDS: Furosemide 80 MG TAB PO SCH ×2 (08:48→14:29)
[2019-10-17] MEDS: Isosorbide Mononitrate (ER) 30 MG TAB PO SCH (08:48)
[2019-10-17] MEDS: Lisinopril 5 MG TAB PO SCH (08:48)
[2019-10-17] MEDS: Aspirin Chewable 81 MG TAB PO SCH (08:49)
[2019-10-17] MEDS: Potassium Chloride 20 MEQ TAB PO SCH (08:49)
[2019-10-17] MEDS ORDERED: FLU VACC QS2019-20(6MOS UP)/PF 60 MCG/0.5 ML SYRINGE IM ONE (09:00)
[2019-10-17] MEDS ORDERED: Dextrose 5% in Water 1,000 ML IV PRN (12:15)
[2019-10-17] MEDS ORDERED: Dextrose 50% Abboject 50 ML SYRINGE IVP PRN (12:15)
[2019-10-17] MEDS ORDERED: Morphine 4 MG/ML VIAL SLOW IVP PRN (12:15)
[2019-10-17] MEDS ORDERED: Morphine 2 MG/ML SYRINGE SLOW IVP SCH (12:45)
[2019-10-17] MEDS: HumaLOG 300 UNITS/3 ML VIAL SC PRN (12:51)
[2019-10-17] MEDS: Vancomycin HCl 1.25 GM in Sodium Chloride 0.9% 250 ML 250 ML IVPB SCH (18:23)
[2019-10-17] MEDS ORDERED: Ketorolac Tromethamine 30 MG/ML VIAL IVP SCH (19:15)
[2019-10-17] MEDS: Atorvastatin Calcium 40 MG TAB PO SCH (21:17)
[2019-10-18] MEDS: Piperacillin/Tazobactam 2.25 GM in Sodium Chloride 0.9% 100 ML IVPB SCH ×4 (03:00→20:56)
--- NOTE | 2019-10-18 07:28 | HP ---
CHIEF COMPLAINT: A right lower leg pain. HISTORY OF PRESENT ILLNESS: Mr. Irving is a 59-year-old male with past medical history of severe peripheral vascular disease, hypertension, severe cardiomyopathy, came because of the pain in the right leg with some swelling. The patient has been doing well until 3-4 days ago, then started having more pain in the right foot, especially in the right great toe, also noticed swelling. He also developed some ulcers in the right lower leg. He also has some cough and shortness of breath. No chest pain. No nausea or vomiting. No fever. The patient came to the hospital mainly for the pain. In the ER, the patient was evaluated as thought of cellulitis in the right lower leg. He was started on vancomycin and Zosyn and he also received a dose of morphine in the ER and Toradol as well. PAST MEDICAL HISTORY: 1. Severe cardiomyopathy with decreased EF of 15%. 2. Coronary artery disease. 3. Diabetes mellitus. 4. Hypertension. 5. Chronic kidney disease, stage 3. 6. History of polysubstance abuse. 7. COPD. 8. Diabetes mellitus. 9. Severe peripheral vascular disease. 10. History of ventricular tachycardia. PAST SURGICAL HISTORY: Status post TKA, stage II on the left. Status post AICD placement. CURRENT MEDICATIONS: The patient is on: 1. Lasix 80 b.i.d. 2. Lisinopril 5 mg daily. 3. Aspirin 81 mg daily. 4. Atorvastatin 40 mg daily. 5. Coreg 25 mg b.i.d. 6. Imdur 30 mg daily. 7. KCl 20 mEq daily. 8. lisinopril 10 mg b.i.d. ALLERGIES: NKDA. FAMILY HISTORY: Nothing contributory. SOCIAL HISTORY: The patient lives alone. No history of alcohol drinking. No history of smoking. REVIEW OF SYSTEMS: CARDIOVASCULAR: No chest pain. No shortness of breath. RESPIRATORY: No fever or cough. GASTROINTESTINAL: No nausea or vomiting. No abdominal pain. CENTRAL NERVOUS SYSTEM: No headache. No dizziness. PHYSICAL EXAMINATION: GENERAL: The patient is alert, awake, oriented x3. VITAL SIGNS: Temperature 98, pulse 66, respiratory rate 18, blood pressure 121/ 64. HEENT: Head is normocephalic, atraumatic. Pupils are equal and reactive. Nasopharynx is pale and dry. NECK: Supple. No JVD. LUNGS: Bilateral air entry present. No rales. No rhonchi. HEART: S1 and S2 regular. ABDOMEN: Soft. No distention. No tenderness. Normal bowel sounds present. RECTAL: Deferred. CENTRAL NERVOUS SYSTEM: No focal deficits. EXTREMITIES: Left BKA. Right lower leg, there is swelling present in the diffusely lower leg with some erythema and is tender to touch, warm to touch. Also noticed a few ulcers on the right lower leg and the foot as well. It is more tender on the right great toe and the first metatarsal joint area. LABORATORY DATA: CBC shows WBC 8.5, hemoglobin 9.6, hematocrit 30, platelets 128. Metabolic panel: Sodium 136, potassium 3.9, chloride 101, CO2 of 26, BUN 33, creatinine 1.7, glucose 353. C-reactive protein 2.54. X-ray of the foot and legs are normal. Ankle x-ray was normal too. Venous Doppler study was negative for a DVT. EKG was not done. ASSESSMENT: 1. Right lower leg, possible cellulitis. 2. Right foot pain, severe. 3. Severe peripheral vascular disease. 4. Severe cardiomyopathy with ejection fraction of 10%. 5. History of congestive heart failure. 6. Hypertension. 7. Diabetes mellitus. 8. Coronary artery disease. PLAN: 1. Vital signs q.4 hours. 2. Activities as tolerated. 3. Allergies, NKDA. 4. Hep-Lock. 5. Diet, cardiac. 6. Continue home medications. 7. Vancomycin 1 g IV piggyback q.12 hours and Zosyn 2.25 g IV piggyback q.6 hours. 8. Morphine for pain p.r.n. Job ID: [id number] [facility]
[2019-10-18] MEDS: glipiZIDE 5 MG TAB PO SCH ×2 (08:20→16:38)
[2019-10-18] MEDS: Lisinopril 5 MG TAB PO SCH (08:20)
[2019-10-18] MEDS: Aspirin Chewable 81 MG TAB PO SCH (08:20)
[2019-10-18] MEDS: Potassium Chloride 20 MEQ TAB PO SCH (08:20)
[2019-10-18] MEDS: Isosorbide Mononitrate (ER) 30 MG TAB PO SCH (08:20)
[2019-10-18] MEDS: Furosemide 80 MG TAB PO SCH ×2 (08:20→13:35)
[2019-10-18] MEDS: Ketorolac Tromethamine 30 MG/ML VIAL IVP PRN ×3 (08:21→20:55)
[2019-10-18] MEDS: Acetaminophen/Codeine 30-300mg Tablet PO PRN (08:21)
[2019-10-18] MEDS: Vancomycin HCl 1.25 GM in Sodium Chloride 0.9% 250 ML 250 ML IVPB SCH (17:33)
[2019-10-18 18:15] LABS: Vancomycin, Trough 19.8 ug/mL
[2019-10-18] MEDS: Atorvastatin Calcium 40 MG TAB PO SCH (19:58)
[2019-10-18] MEDS: Ondansetron PF 4 MG/2 ML Vial SLOW IVP PRN (22:51)
[2019-10-19] MEDS: Acetaminophen/Codeine 30-300mg Tablet PO PRN (00:08)
[2019-10-19] MEDS: Piperacillin/Tazobactam 2.25 GM in Sodium Chloride 0.9% 100 ML IVPB SCH ×4 (02:28→17:48)
[2019-10-19] MEDS: HumaLOG 300 UNITS/3 ML VIAL SC PRN ×2 (06:11→17:50)
[2019-10-19] MEDS: Furosemide 80 MG TAB PO SCH ×2 (08:17→14:30)
[2019-10-19] MEDS: Aspirin Chewable 81 MG TAB PO SCH (08:17)
[2019-10-19] MEDS: glipiZIDE 5 MG TAB PO SCH ×2 (08:17→17:48)
[2019-10-19] MEDS: Ketorolac Tromethamine 30 MG/ML VIAL IVP PRN ×2 (08:17→18:00)
[2019-10-19] MEDS: Potassium Chloride 20 MEQ TAB PO SCH (08:17)
[2019-10-19] MEDS: Isosorbide Mononitrate (ER) 30 MG TAB PO SCH (08:17)
[2019-10-19] MEDS: Lisinopril 5 MG TAB PO SCH (08:17)
[2019-10-19 08:58] LABS: #Eosinphils 0.3 thou/uL (0.0-0.7); #Lymphocytes 1.4 thou/uL (1.20-3.40); #Monocytes 0.9 thou/uL (0.11-0.59); #Neutrophils 6.6 thou/uL (1.40-6.50); %Basophils 0.1 % (0.0-1.0); %Eosinophils 2.8 % (0.0-10.0); %Lymphocytes 14.9 % (21.0-51.0); %Neutrophils 72.1 % (42.0-75.0); Hemoglobin 9.8 g/dL (14.0-18.0); Mean Corpuscular HGB CONC 32.1 g/dL (32.0-36.0); Mean Corpuscular Volume 90.5 fL (78.0-98.0); Mean Platelet Volume 10.3 fL (7.4-10.4); Platelet Count 143 thou/uL (130-400); RBC Distribution Width 18.2 % (11.5-14.5); Red Blood Cell (RBC) Count 3.37 mill/uL (4.70-6.10); White Blood Cell (WBC) Count 9.2 thou/uL (4.8-10.8)
[2019-10-19 09:13] LABS: Anion Gap 14 mmol/L (10-20); BUN (Urea Nitrogen) 40 mg/dL (8.4-25.7); Calc. Creatinine Clearance 40 mL/min (70-130); Calcium 8.8 mg/dL (7.8-10.44); Carbon Dioxide 24 mmol/L (22-29); Chloride 103 mmol/L (98-107); Estimated GFR-MDRD 43; Glucose 138 mg/dL (70-105); Potassium 4.1 mmol/L (3.5-5.1); Sodium 137 mmol/L (136-145)
[2019-10-19] MEDS: Indomethacin 25 mg Capsule PO SCH ×3 (10:00→19:12)
[2019-10-19] MEDS: Ondansetron PF 4 MG/2 ML Vial SLOW IVP PRN (12:35)
[2019-10-19 18:23] LABS: Vancomycin, Trough 19.2 ug/mL
[2019-10-19] MEDS: Cephalexin 250 MG CAP PO SCH (21:04)
[2019-10-19] MEDS: Atorvastatin Calcium 40 MG TAB PO SCH (21:04)
[2019-10-20] MEDS: HYDROcodone/Acetaminophen 10/325 mg Tablet PO PRN ×3 (01:39→14:40)
[2019-10-20] MEDS: Ketorolac Tromethamine 30 MG/ML VIAL IVP PRN (06:22)
[2019-10-20] MEDS: Lisinopril 5 MG TAB PO SCH (08:16)
[2019-10-20] MEDS: Cephalexin 250 MG CAP PO SCH ×2 (08:16→14:39)
[2019-10-20] MEDS: Furosemide 80 MG TAB PO SCH ×2 (08:16→13:51)
[2019-10-20] MEDS: Aspirin Chewable 81 MG TAB PO SCH (08:16)
[2019-10-20] MEDS: glipiZIDE 5 MG TAB PO SCH (08:16)
[2019-10-20] MEDS: Potassium Chloride 20 MEQ TAB PO SCH (08:16)
[2019-10-20] MEDS: Isosorbide Mononitrate (ER) 30 MG TAB PO SCH (08:16)
[2019-10-20 17:03] VITALS: BP 127/81; TEMP 98
--- NOTE | 2019-10-27 06:06 | PQF ---
[employer] ARCELIA Arreola LILIAN LORENZANA MD [id number] [facility] [id number] CLINICAL DOCUMENTATION CLARIFICATION FORM: POST DISCHARGE Addendum to original discharge summary date: ____ Late entry note date: __ DATE:10/27/2019 ATTN: LILIAN LORENZANA MD Please exercise your independent, professional judgment in responding to the clarification form. Clinical indicators are provided on the bottom of this form for your review Please check appropriate box(s): [ ] Right lower leg cellulitis is due to Diabetes [ ] Right lower leg cellulitis is not due to Diabetes [y ] Other diagnosis _severe PVD [ ] Unable to determine For continuity of documentation, please document condition throughout progress notes and discharge summary. Thank You. CLINICAL INDICATORS - SIGNS / SYMPTOMS / LABS Right lower leg there is swelling present in the diffusely lower leg with some erythema and is tender to touch, warm to touch.Also noticed a few ulcers on the right lower leg and the foot as well. It is more tender on the right great toe and the first metatarsal joint area.-Documented in H&P on 10/16 by Lilian Lorenzana MD. Right lower leg, Possible cellulitis-Documented in H&P on 10/16 by Lilian Lorenzana MD. Diabetes mellitus-Documented in H&P on 10/16 by Lilian Lorenzana MD. [id number] in H&P on 10/16 by Lilian Lorenzana MD. RISKS: Severe peripheral Vascular Disease-Documented in H&P on 10/16 by Lilian Lorenzana MD. Diabetes-Documented in H&P on 10/16 by Lilian Lorenzana MD. TREATMENT: Vancomycin 1g IV,,Zosyn 2.25 g IV-Documented in H&P on 10/16 by Lilian Lorenzana MD. Glucagon 1gm IM-Medication snapshot Glipizide 5 mg PO-Medication snapshot [employer] (This form is maintained as a part of the permanent medical record) 2014 [employer]. All Rights Reserved [email or web address] [not provided] [email or web address]
== END 2019-10-20 17:20 | disposition home or self-care (01) | DRG 300 ==
LOC: ERS 16:09 → T4-B 20:32
PROVIDERS: ADMIT Internal Medicine; ATTEND Internal Medicine
DX: E11.51 Type 2 diabetes mellitus with diabetic peripheral angiopathy without gangrene (principal); L03.115 Cellulitis of right lower limb; I13.0 Hypertensive heart and chronic kidney disease with heart failure and stage 1 through stage 4 chronic kidney disease, or unspecified chronic kidney disease; I42.9 Cardiomyopathy, unspecified; I25.10 Atherosclerotic heart disease of native coronary artery without angina pectoris; E11.22 Type 2 diabetes mellitus with diabetic chronic kidney disease; N18.3 Chronic kidney disease, stage 3 (moderate); J44.9 Chronic obstructive pulmonary disease, unspecified; Z79.4 Long term (current) use of insulin; Z95.810 Presence of automatic (implantable) cardiac defibrillator; Z96.652 Presence of left artificial knee joint; I50.9 Heart failure, unspecified; E78.5 Hyperlipidemia, unspecified; Z95.5 Presence of coronary angioplasty implant and graft; R40.2362 Coma scale, best motor response, obeys commands, at arrival to emergency department; R40.2142 Coma scale, eyes open, spontaneous, at arrival to emergency department; R40.2252 Coma scale, best verbal response, oriented, at arrival to emergency department
CPT/HCPCS: 36415; 36416; 80048; 80053; 80202; 85025; 86140; 86780; 87040; 87149; 94760; 96365; 96368; 96375; J1885; J2270; J2405; J2543; J3370; J3490; J7050

== ENCOUNTER 2019-11-13 16:01 | Emergency (ER) | payer MEDICARE ==
[2019-11-13] MEDS ORDERED: Morphine 2 MG/ML SYRINGE ONE (17:05)
== END 2019-11-13 17:42 | disposition home or self-care (01) ==
LOC: ERS 16:01
DX: M79.674 Pain in right toe(s) (principal); I11.0 Hypertensive heart disease with heart failure; I50.9 Heart failure, unspecified; I25.2 Old myocardial infarction; E11.9 Type 2 diabetes mellitus without complications; E78.5 Hyperlipidemia, unspecified; E78.00 Pure hypercholesterolemia, unspecified; J44.9 Chronic obstructive pulmonary disease, unspecified; F17.210 Nicotine dependence, cigarettes, uncomplicated; Z95.5 Presence of coronary angioplasty implant and graft; W05.0XXA Fall from non-moving wheelchair, initial encounter
CPT/HCPCS: 96374; J2270